=== PATIENT | female | born 1950 | race Caucasian/White ===

== ENCOUNTER → 2016-04-07 | Outpatient (REF) | payer MEDICARE ==
[~2016-04-07] MED LIST: /AMLO25TA PO; CHLO125TA PO; FENO48TA2 PO; LISI5TAB PO; NICO21DI26 EXT; OMEP20CA3 PO; PRAV40TA2 PO
[2016-04-07 12:11] LABS: FREE T4 0.81 NG/DL (0.76-1.46)
== END ==
LOC: M SFHCLERA 07:52
PROVIDERS: ATTEND Family Medicine
DX: E03.9 Hypothyroidism, unspecified (principal)

== ENCOUNTER → 2016-05-31 | Outpatient (REF) | payer MEDICARE ==
[2016-05-31 12:43] LABS: FREE T4 0.91 NG/DL (0.76-1.46)
== END ==
LOC: M SFHCLERA 08:20
PROVIDERS: ATTEND Family Medicine
DX: E03.9 Hypothyroidism, unspecified (principal)

== ENCOUNTER 2017-01-11 08:03 | Emergency (ER) | payer MEDICARE ==
[~2017-01-11] VITALS: Ht 157.5 cm; Wt 59.1 kg
[2017-01-11] MEDS ORDERED: AMLO10TA2 PO (08:14)
[2017-01-11] MEDS ORDERED: METO1TAB87 PO (08:14)
[2017-01-11] MEDS ORDERED: LEVO25TA5 PO (08:14)
[2017-01-11] MEDS ORDERED: PRAV40TA2 PO (08:14)
[2017-01-11] MEDS ORDERED: PRED20TA PO (09:31)
[2017-01-11] MEDS ORDERED: LEVA1TAB2 PO (09:31)
[2017-01-11 09:41] VITALS: BP 132/63
== END 2017-01-11 09:44 | disposition home or self-care (01) ==
LOC: M ED 08:03
DX: J44.1 Chronic obstructive pulmonary disease with (acute) exacerbation (principal); J01.00 Acute maxillary sinusitis, unspecified; I10 Essential (primary) hypertension; E03.9 Hypothyroidism, unspecified; F17.200 Nicotine dependence, unspecified, uncomplicated; Z85.828 Personal history of other malignant neoplasm of skin; Z79.899 Other long term (current) drug therapy; Z88.1 Allergy status to other antibiotic agents; Z88.5 Allergy status to narcotic agent; Z88.8 Allergy status to other drugs, medicaments and biological substances

== ENCOUNTER 2017-01-17 11:19 | Inpatient (IN) | payer MEDICARE ==
[2017-01-17] VITALS: BP 112/59
[~2017-01-17] VITALS: Ht 160 cm; Wt 64.2 kg
[~2017-01-17 11:19] MED LIST changes: -CALC600T57 PO; -CHLO25TA PO; -LEVO500T3 PO; -LEVO50TA5 PO; -TYLE325C PO
[2017-01-17] MEDS ORDERED: NS 1,000 ML IV SCH (12:26)
[2017-01-17] MEDS ORDERED: IPRATROPIUM 0.5MG/ALBUTEROL 2.5MG INH SOL UD 3ML (DUONEB)(J7620) NEB PRN (12:30)
[2017-01-17] MEDS ORDERED: ASPIRIN 81 MG CHEW TABLET PO ONE (12:30)
[2017-01-17 12:37] LABS: VENOUS BASE EXCESS -0.8 (-2.0-2.0); VENOUS O2 SATURATION 88.8 % (60.0-80.0); VENOUS PARTIAL PRESSURE CO2 45.7 mmHg (38.0-50.0); VENOUS PARTIAL PRESSURE O2 55.4 mmHg (30.0-50.0); VENOUS STANDARD HCO3 23.6 MEQ/L; VENOUS TOTAL CO2 26.5 MEQ/L (24.0-28.0)
[2017-01-17 12:40] LABS: BASO % 0.2 % (0.0-1.0); EOS % 0.1 % (0.0-3.0); IMMATURE GRANULOCYTE % 1.5 % (0-0); LYMPH # 0.5 10^3/uL (1.5-4.5); LYMPH % 2.5 % (24.0-44.0); MEAN CORPUSCULAR HEMOGLOBIN 32.2 pg (27.0-33.0); MEAN CORPUSCULAR VOLUME 92.1 fl (80.0-96.0); MONO # 0.6 10^3/uL (0.0-0.8); NEUTROPHILS # 17.7 10^3/uL (1.8-7.7); NEUTROPHILS % 92.7 % (36.0-66.0); PLATELET COUNT, AUTOMATED 484 10^3/uL (150-450); RED CELL DISTRIBUTION WIDTH 12.7 % (11.5-14.5); WHITE BLOOD COUNT 19.1 10^3/uL (4.0-10.0)
[2017-01-17 12:48] LABS: ANION GAP 13 MEQ/L (8-16); BLOOD UREA NITROGEN 9 MG/DL (7-18); CALCIUM LEVEL 9.1 MG/DL (8.8-10.2); CARBON DIOXIDE LEVEL 26 MEQ/L (21-32); CHLORIDE LEVEL 85 MEQ/L (98-107); CREATININE FOR GFR 0.76 MG/DL (0.55-1.02); GLOMERULAR FILTRATION RATE > 60.0 (>45); GLUCOSE, FASTING 126 MG/DL (80-110); POTASSIUM SERUM 3.3 MEQ/L (3.5-5.1); SODIUM LEVEL 124 MEQ/L (136-145)
[2017-01-17 12:51] LABS: INR 0.85
[2017-01-17] MEDS ORDERED: LEVO500T3 PO (14:10)
[2017-01-17] MEDS ORDERED: LEVO50TA5 PO (14:10)
[2017-01-17] MEDS ORDERED: CHLO25TA PO (14:10)
[2017-01-17] MEDS ORDERED: PRED20TA PO (14:15)
[2017-01-17] MEDS ORDERED: TYLE325C PO (14:17)
[2017-01-17] MEDS ORDERED: CALC600T57 PO (14:18)
[2017-01-17 15:10] VITALS: BP 147/68
[2017-01-17] MEDS: NICOTINE 14 MG/24 HR TRANSDERMAL TD SCH (15:57)
--- NOTE | 2017-01-17 17:02 | HPEPDOC ---
General Date of Admission Jan 17, 2017 at 13:35 Primary Care Physician: RANDA ONTIVEROS MD Attending Physician: Camilo Hutton MD Chief Complaint The patient is a 66-year-old female admitted with a reason for visit of Cap, Copd. Source: Patient, Family Exam Limitations: No limitations Timing/Duration: Week(s) (2), Constant Severity: Moderate Associated Symptoms: Fever, Chills History of Present Illness Patient presents with a 2 week history of dry non productive cough, along with sinus pain. She admits to a subjective fever and chills during the beginning of the disease process. Patient presented to [facility] ED last week and was diagnosed with pneumonia. Patient was prescribed Levaquin with prednisone and albuterol nebulizer. Patient went home and adhered to her treatment regimen however over the course of the week she noticed that her symptoms were not improving, or worsening. They stayed the same. This morning patient reported to her PCP Dr. [place]. In the office, patient was in distress her O2 sat was 88 and x -ray showed left lower lobe pneumonia. Patient was instructed to present to this ED. On presentation patient admitted to shortness of breath, increased cough, however denied chest pain palpitation and rapid heart rate. Patient admits to having 1 prior episode of pneumonia in the past where she was treated as an outpatient with antibiotics. Patient is a 1 pack-a-day smoker for the last 30 years. She is also having drinker. Patient did not get the flu shot this year, however she has received both the Prevnar and Pneumovax vaccines. She was admitted for community-acquired pneumonia resistance to one-week treatment is Levaquin. Home Medications Scheduled (Calcium + D3 600-200 mg-Unit) 1 Tab Tab, 1 TAB PO QHS, (Reported) Amlodipine Besylate (Amlodipine Besylate) 10 Mg Tab, 10 MG PO QHS, (Reported) Chlorthalidone (Chlorthalidone) 25 Mg Tab, 25 MG PO QHS, (Reported) Levofloxacin Hemihydrate (Levofloxacin) 500 Mg Tab, 500 MG PO DAILY, (Reported) FILLED 01/11/2017 Levothyroxine Sodium (Synthroid) 50 Mcg Tab, 50 MCG PO QHS, (Reported) Metoprolol Tartrate (Metoprolol Tartrate) 25 Mg Tab, 50 MG PO QHS, (Reported) Pravastatin Sod (Pravastatin Sodium) 40 Mg Tab, 40 MG PO QHS, (Reported) Prednisone (Prednisone) 20 Mg Tab, 20 MG PO ASDIRECTED, (Reported) 60MG DAYS 1-3, 40MG DAYS 4-7, 20MG DAYS 8-10 Scheduled PRN (Tylenol) 325 Mg Cap, 650 MG PO Q4H PRN for PAIN, (Reported) Allergies Coded Allergies: Lisinopril (Verified Allergy, Unknown, 06/28/14) Prochlorperazine (Verified Allergy, Unknown, 06/28/14) Cephalexin (Verified Adverse Reaction, Mild, N/V, 01/17/17) Codeine (Verified Adverse Reaction, Mild, N/V, 06/28/14) Meperidine (Verified Adverse Reaction, Mild, N/V, 06/28/14) Past Medical History Medical History Hypertension Smoking, and pack-a-day for 30 years History of hyperkalemia Hyperlipidemia Hiatal hernia with history of gastritis Osteopenia COPD Heavy alcohol use patient reports 3-5 glasses of wine day 1 prior history of community acquired pneumonia Surgical History Hysterectomy 30 years ago, tonsillectomy when she was 17, urethroplasty Family History Father is at the age of 76, patient reports father had an [place], hypertension, diabetes and kidney disease Mother at the age of 76 patient report mother had liver disease and hypertension Siblings hypertension, brother suddenly from [place] Paternal grandmother had colon cancer Social History * Smoker: current smoker (1 pack-a-day for last 30 years) Alcohol: heavy (4-5 glasses of wine a day) Drugs: denies Recent Travel/Sick Contacts: Denies: Recent travel, Recent sick contacts Pets in the home: Cat(s) (1) Psychosocial History: Anxiety (states she is anxious from not having a drink) Lives at home by herself, her daughter lives next door Review of Symptoms Constitutional: Reports: Chills, Fever, Denies: Night Sweats Eyes: Denies: Pain, Vision change ENT: Reports: Sinus Congestion, Sore Throat, Denies: Head Aches, Ear Pain, Dysphagia Skin: Denies: Rash, Lesions, Breakdown Pulmonary: Reports: Dyspnea, Cough, Denies: Pleuritic Chest Pain Cardiovascular: Denies: Chest Pain, Palpitations, Orthopnea, Paroxysmal Noc. Dyspnea, Lt Headedness Gastrointestinal: Denies: Nausea, Vomiting, Abdominal Pain, Diarrhea Genitourinary: Denies: Dysuria, Frequency, Incontinence, Retention Hematologic: Denies: Bruising, Bleeding Excessively Musculoskeletal: Denies: Neck Pain, Back Pain, Joint Pain, Muscle Pain, Spasms Neurological: Denies: Weakness, Numbness, Change in speech, Confusion Psych: Reports: Mood Normal, Anxiety, Denies: Depression, Memory Issues Physical Examination General Exam: Positive: Alert, Cooperative, No Acute Distress Eye Exam: Positive: Conjunctiva & lids normal ENT Exam: Positive: Atraumatic, Mucous membr. moist/pink, Nares Patent Neck Exam: Positive: Supple, +2 carotid pulse wo bruit, Negative: JVD, thyromegaly Chest Exam: Positive: Clear to auscultation (diminished breath sounds in bilateral lower lobes, dullness to percuss and left lower lobe, she does not appear to be using accessory muscles to breathe), Other (She is on 3 liters of nasal cannula) Heart Exam: Positive: Rate Normal, Regular Rhythm, Normal S1, Normal S2, Negative: Gallops, Murmurs, Rubs Abdomen Exam: Positive: Normal bowel sounds, Soft, Tenderness Extremity Exam: Negative: Clubbing, Cyanosis Psych Exam: Positive: Mental status NL, Anxiety Vital Signs Vital Signs Date Time Temp Pulse Resp B/P (MAP) Pulse Ox O2 Delivery O2 Flow Rate FiO2 01/17/17 15:41 Nasal Cannula 3.0 01/17/17 15:10 97.3 70 16 147/68 (94) 95 Laboratory Data Labs 24H Laboratory Tests 2 01/17/17 11:59: Immature Granulocyte % (Auto) 1.5H, White Blood Count 19.1H, Red Blood Count 4.16, Hemoglobin 13.4, Hematocrit 38.3, Mean Corpuscular Volume 92.1, Mean Corpuscular Hemoglobin 32.2, Mean Corpuscular Hemoglobin Concent 35.0, Red Cell Distribution Width 12.7, Platelet Count 484H, Neutrophils (%) (Auto) 92.7H, Lymphocytes (%) (Auto) 2.5L, Monocytes (%) (Auto) 3.0, Eosinophils (%) (Auto) 0.1, Basophils (%) (Auto) 0.2, Neutrophils # (Auto) 17.7H, Lymphocytes # (Auto) 0.5L, Monocytes # (Auto) 0.6, Eosinophils # (Auto) 0.0, Basophils # (Auto) 0.0, Immature Granulocyte # (Auto) 0.3H, Nucleated Red Blood Cells % (auto) 0.0, Prothrombin Time 11.6L, Prothromb Time International Ratio 0.85, Blood Gas Bicarbonate Standard 23.6, Venous Blood pH 7.357, Venous Blood Partial Pressure CO2 45.7, Venous Blood Partial Pressure O2 55.4H, Venous Blood Total Carbon Dioxide 26.5, Venous Blood HCO3 25.1, Venous Blood Oxygen Saturation 88.8H, Venous Blood Base Excess -0.8, Anion Gap 13, Glomerular Filtration Rate > 60.0, Lactic Acid Level 2.9*H, Blood Urea Nitrogen 9, Creatinine 0.76, Sodium Level 124L, Potassium Level 3.3L, Chloride Level 85L, Carbon Dioxide Level 26, Calcium Level 9.1, Total Creatine Kinase 46, Creatine Kinase MB 2.2, Creatine Kinase MB Relative Index 4.78H, Troponin I < 0.02 CBC/BMP Laboratory Tests 01/17/17 11:59 Red Blood Count 4.16, Mean Corpuscular Volume 92.1, Mean Corpuscular Hemoglobin 32.2, Mean Corpuscular Hemoglobin Concent 35.0, Red Cell Distribution Width 12.7 , Neutrophils (%) (Auto) 92.7 H, Lymphocytes (%) (Auto) 2.5 L, Monocytes (%) ( Auto) 3.0, Eosinophils (%) (Auto) 0.1, Basophils (%) (Auto) 0.2, Neutrophils # ( Auto) 17.7 H, Lymphocytes # (Auto) 0.5 L, Monocytes # (Auto) 0.6, Eosinophils # (Auto) 0.0, Basophils # (Auto) 0.0, Calcium Level 9.1, Total Creatine Kinase 46 Microbiology Microbiology 01/17/17 Blood Culture, Received Pending 01/17/17 Blood Culture, Received Pending Assessment/Plan This is a 66 y.o female being admitted for community acquired pneumonia resistant to levaquin 1. Community-acquired pneumonia: -X-ray showed left lower lobe pneumonia by my interpretation. Still waiting on the official read from radiologist. Patient will be started on 2 g Rocephin IV along with 100 of IV doxycycline twice a day. We'll monitor patient for white count and clinical signs of improvement. 2. COPD Exacerbation -Patient has a history of COPD however ,there is no documented spirometry in her file. Unsure if her current condition is attributed to COPD exacerbation. However given the likely possibility that her symptoms might relate to an exacerbation of COPD and prior wheezing on physical exam, she will be placed on Solu-Medrol 40 mg IV for 3 days 3. Alcohol withdrawal -Patient has a history of heavy alcohol use. She drinks 4-5 glasses of wine a day starting around 12 PM each day. To prevent withdrawal while in the hospital patient has been given thiamine as well as Serax 30 mg every 6 when necessary for agitation and signs of alcohol withdrawal 4. Tobacco abuse -She is a 30 year history of 1 pack-a-day smoking. Nicotine patch has been ordered for patient. 5. Basal cell carcinoma -Patient recently underwent a Mohs procedure to remove a basal cell carcinoma from her right upper eyebrow. An order has been placed for triple antibiotics as needed when necessary for the healing wound 6. Hypertension -We'll be switching patient's home medication of metoprolol tartrate to metoprolol succinate 25 mg once a day. I would also be decreasing patient's amlodipine from 10 mg a day to 5 mg a day 7. Hypokalemia -Patient has been given IV fluids with kcl 20 MEQ Plan / VTE VTE Prophylaxis Ordered?: Yes Plan Diet: Continue Current Activity: Continue Current GME ATTESTATION GME ATTESTATION My faculty preceptor for this patient encounter was physically present during the encounter and was fully available. All aspects of the patient interview, examination, medical decision making process, and medical care plan development were reviewed and approved by the faculty preceptor. The faculty preceptor is aware and concurs with the plan as stated in the body of this note and will attest to such by his/her cosignature. ELMO GARCIA DO Jan 17, 2017 16:19
[2017-01-17] MEDS: DOXYCYCLINE HYCLATE 100 MG in D5W MINI-BAG PLUS 100 ML IV SCH (17:10)
[2017-01-17] MEDS: THIAMINE 100 MG TAB PO SCH (17:10)
[2017-01-17] MEDS: ENOXAPARIN 40 MG/0.4 ML SYRINGE (J1650) SC SCH (17:11)
[2017-01-17] MEDS: methylPREDNISolone INJ 40 MG/1 ML VIAL (J2920) IV SCH (17:11)
[2017-01-17] MEDS: OXAZEPAM 15 MG CAP PO PRN (17:24)
--- NOTE | 2017-01-17 17:35 | REP ---
Chest x-ray: Two views. History: Pneumonia. Comparison chest x-ray January 17, 2017 from 10:03 a.m. also reviewed is a prior chest x-ray from April 11, 2012. Findings: There is blunting of the left lateral and left posterior pleural angles indicating a small amount of left pleural fluid. Increased parenchymal density is seen in the left base above this. There is also an ill-defined nodular opacity in the left perihilar region which measures approximately 2 cm in diameter. Right lung appears clear. There are degenerative changes in the thoracic spine. Heart is not enlarged. Impression: Small left pleural effusion. Probable infiltrate left lower lobe. 2 cm nodular opacity left perihilar region. Consider chest CT study. Signed by Eliud Bond MD 01/17/2017 07:52 P
[2017-01-17] MEDS ORDERED: ALBUTEROL SULFATE 2.5 MG/0.5 ML INH NEB SOLN NEB PRN (17:45)
--- NOTE | 2017-01-17 17:50 | REP ---
CT study of the chest without contrast: History: Pneumonia. No comparison chest CT. Comparison chest x-ray is from today. CT findings: There are patchy areas of predominately peripheral consolidation bilaterally. These affect the lingula, left lower lobe, and right lower lobe. There is a small left pleural effusion. No adrenal lesion is seen. No pulmonary mass lesion is observed. One of the peripheral infiltrates in the lingula is felt to be responsible for the left inferior perihilar nodule density seen on chest x-ray. No pericardial or right pleural effusion is seen. No hilar or mediastinal mass or adenopathy is seen. There are several normal-appearing mediastinal lymph nodes. No axillary adenopathy is seen. Mild degenerative changes are seen in the thoracic spine. Vascular calcification is noted. Old healed rib fractures are noted on the right. No endobronchial disease is appreciated. Impression: Patchy areas of consolidation bilaterally in the lower lobes and in the lingular segment left upper lobe. Small left pleural effusion. Findings compatible with pneumonia. Signed by Eliud Bond MD 01/17/2017 07:53 P
[2017-01-17] MEDS: KCL 20MEQ in NS 1000ML 1,000 ML IV SCH (18:48)
[2017-01-17] MEDS: CEFTRIAXONE SOD 2 GM in APPROPRIATE DILUENT 1 EA IV SCH (18:48)
--- NOTE | 2017-01-17 19:37 | ECGEPIP ---
Stationary ECG Study [facility] - ED Test Date: 2017-01-17 Pat Name: TRE BOYER Department: Room: - Gender: F Director Of Marketing: BIANCA : 1950 Requested By: NIEVES CHAVEZ Order Number: [id number] Reading MD: Agatha Gutierrez Measurements Intervals [place] Rate: 75 P: 79 NH: 150 QRS: 28 QRSD: 90 T: 33 QT: 402 QTc: 450 Interpretive Statements SINUS RHYTHM DELAYED R PROGRESSION INCREASED RATE 04/27/12 Electronically Signed On 01-17-2017 19:36:57 EST by Agatha Gutierrez
[2017-01-17] MEDS: ALBUTEROL SULFATE 2.5 MG/0.5 ML INH NEB SOLN NEB SCH (19:49)
[2017-01-17] MEDS: LEVOTHYROXINE 50MCG TABLET (0.05MG) PO SCH (20:48)
[2017-01-17] MEDS: PRAVASTATIN 20 MG TAB PO SCH (20:48)
[2017-01-17 22:00] VITALS: BP 112/59
[2017-01-18] VITALS (7 sets, daily range): BP systolic 103–146; BP diastolic 58–67
[2017-01-18] MEDS: OXAZEPAM 15 MG CAP PO PRN ×3 (03:52→20:35)
[2017-01-18] MEDS: DOXYCYCLINE HYCLATE 100 MG in D5W MINI-BAG PLUS 100 ML IV SCH ×2 (03:53→16:09)
[2017-01-18] MEDS: KCL 20MEQ in NS 1000ML 1,000 ML IV SCH (03:54)
[2017-01-18 06:49] LABS: BASO % 0.2 % (0.0-1.0); IMMATURE GRANULOCYTE % 1.2 % (0-0); LYMPH # 0.6 10^3/uL (1.5-4.5); LYMPH % 3.4 % (24.0-44.0); MEAN CORPUSCULAR HEMOGLOBIN 32.4 pg (27.0-33.0); MEAN CORPUSCULAR HGB CONC 34.9 g/dl (32.0-36.5); MEAN CORPUSCULAR VOLUME 92.8 fl (80.0-96.0); MONO # 1.2 10^3/uL (0.0-0.8); MONO % 6.8 % (0.0-5.0); NEUTROPHILS # 16.1 10^3/uL (1.8-7.7); NEUTROPHILS % 88.4 % (36.0-66.0); PLATELET COUNT, AUTOMATED 425 10^3/uL (150-450); RED CELL DISTRIBUTION WIDTH 12.8 % (11.5-14.5); WHITE BLOOD COUNT 18.2 10^3/uL (4.0-10.0)
[2017-01-18 07:10] LABS: ANION GAP 6 MEQ/L (8-16); BLOOD UREA NITROGEN 9 MG/DL (7-18); CALCIUM LEVEL 8.4 MG/DL (8.8-10.2); CARBON DIOXIDE LEVEL 28 MEQ/L (21-32); CHLORIDE LEVEL 99 MEQ/L (98-107); CREATININE FOR GFR 0.66 MG/DL (0.55-1.02); GLOMERULAR FILTRATION RATE > 60.0 (>45); GLUCOSE, FASTING 140 MG/DL (80-110); POTASSIUM SERUM 3.6 MEQ/L (3.5-5.1); SODIUM LEVEL 133 MEQ/L (136-145)
[2017-01-18] MEDS: ALBUTEROL SULFATE 2.5 MG/0.5 ML INH NEB SOLN NEB SCH ×4 (07:26→20:02)
[2017-01-18] MEDS: NICOTINE 14 MG/24 HR TRANSDERMAL TD SCH (08:22)
[2017-01-18] MEDS: FOLIC ACID 1 MG TAB PO SCH (08:22)
[2017-01-18] MEDS: MULTIVITAMINS/MINERALS THERAP 1 TAB PO SCH (08:22)
[2017-01-18] MEDS: THIAMINE 100 MG TAB PO SCH (08:23)
[2017-01-18] MEDS: amLODIPine 5 MG TAB PO SCH (08:23)
[2017-01-18] MEDS: METOPROLOL SUCC *XL* 25MG TAB (TopROL *XL*) PO SCH (08:23)
[2017-01-18] MEDS: ENOXAPARIN 40 MG/0.4 ML SYRINGE (J1650) SC SCH (08:24)
--- NOTE | 2017-01-18 10:14 | IPNPDOC ---
Text Note Date of Service The patient was seen on 01/18/17. NOTE Subjective: Patient seen and examined at bedside. States her breathing has significantly improved. Does admit to cough, productive of clear to yellow sputum. Objective: General: NAD, sitting comfortably in chair HEENT: NC/AT, EOMI Lungs: B/L wheezes, diminished movement Abd: soft, NT, +BS Ext: no edema A/P: This is a 66 y.o female being admitted for community acquired pneumonia resistant to levaquin 1. Community-acquired pneumonia: -X-ray showed left lower lobe pneumonia -Continue 2 g Rocephin IV along with 100 of IV doxycycline twice a day 2. COPD Exacerbation - Solu-Medrol 40 mg IV for 3 days - o/p follow up - states she does not use home O2 3. Alcohol withdrawal - continue serax - folic acid, thiamine, MVI 4. Tobacco abuse - she states she has been smoking about a pack a day since she was a teenager - continue with NRT 5. Basal cell carcinoma -Patient recently underwent a Mohs procedure to remove a basal cell carcinoma from her right upper eyebrow. An order has been placed for triple antibiotics as needed when necessary for the healing wound 6. Hypertension -Metoprolol succinat/amlodipine 7. hypokalemia - resolved 8. hyponatremia - improved 9. DVT prophylaxis - Lovenox VS,Fishbone, I+O VS, Fishbone, I+O Laboratory Tests 01/17/17 11:59 Red Blood Count 4.16, Mean Corpuscular Volume 92.1, Mean Corpuscular Hemoglobin 32.2, Mean Corpuscular Hemoglobin Concent 35.0, Red Cell Distribution Width 12.7 , Neutrophils (%) (Auto) 92.7 H, Lymphocytes (%) (Auto) 2.5 L, Monocytes (%) ( Auto) 3.0, Eosinophils (%) (Auto) 0.1, Basophils (%) (Auto) 0.2, Neutrophils # ( Auto) 17.7 H, Lymphocytes # (Auto) 0.5 L, Monocytes # (Auto) 0.6, Eosinophils # (Auto) 0.0, Basophils # (Auto) 0.0, Calcium Level 9.1, Total Creatine Kinase 46 01/18/17 06:37 Red Blood Count 3.46 L, Mean Corpuscular Volume 92.8, Mean Corpuscular Hemoglobin 32.4, Mean Corpuscular Hemoglobin Concent 34.9, Red Cell Distribution Width 12.8, Neutrophils (%) (Auto) 88.4 H, Lymphocytes (%) (Auto) 3.4 L, Monocytes (%) (Auto) 6.8 H, Eosinophils (%) (Auto) 0.0, Basophils (%) ( Auto) 0.2, Neutrophils # (Auto) 16.1 H, Lymphocytes # (Auto) 0.6 L, Monocytes # (Auto) 1.2 H, Eosinophils # (Auto) 0.0, Basophils # (Auto) 0.0, Calcium Level 8.4 L Vital Signs Date Time Temp Pulse Resp B/P (MAP) Pulse Ox O2 Delivery O2 Flow Rate FiO2 01/18/17 08:23 63 103/58 01/18/17 06:00 97.3 20 98 Nasal Cannula 3.0 I&O- Last 24 Hours up to 6 AM 01/19/17 06:00 Intake Total 700 ml Balance 700 ml ARTURO PEOPLES MD Jan 18, 2017 10:14
[2017-01-18] MEDS: methylPREDNISolone INJ 40 MG/1 ML VIAL (J2920) IV SCH (16:10)
[2017-01-18] MEDS: CEFTRIAXONE SOD 2 GM in APPROPRIATE DILUENT 1 EA IV SCH (17:26)
[2017-01-18] MEDS: LEVOTHYROXINE 50MCG TABLET (0.05MG) PO SCH (20:35)
[2017-01-18] MEDS: PRAVASTATIN 20 MG TAB PO SCH (20:35)
[2017-01-19] VITALS: BP 128/60
[2017-01-19] MEDS: DOXYCYCLINE HYCLATE 100 MG in D5W MINI-BAG PLUS 100 ML IV SCH ×2 (04:17→15:56)
[2017-01-19] MEDS: OXAZEPAM 15 MG CAP PO PRN ×3 (04:18→21:10)
[2017-01-19] MEDS: NEOSPORIN TOP OINT 15GM TOP PRN (04:27)
[2017-01-19 05:55] VITALS: BP 130/62
[2017-01-19 06:00] VITALS: BP 123/59
[2017-01-19 06:07] LABS: BASO % 0.2 % (0.0-1.0); EOS % 0.2 % (0.0-3.0); IMMATURE GRANULOCYTE % 1.1 % (0-0); LYMPH # 1.4 10^3/uL (1.5-4.5); LYMPH % 9.5 % (24.0-44.0); MEAN CORPUSCULAR HEMOGLOBIN 31.9 pg (27.0-33.0); MEAN CORPUSCULAR HGB CONC 33.4 g/dl (32.0-36.5); MEAN CORPUSCULAR VOLUME 95.5 fl (80.0-96.0); MONO # 1.1 10^3/uL (0.0-0.8); MONO % 7.3 % (0.0-5.0); NEUTROPHILS # 12.4 10^3/uL (1.8-7.7); NEUTROPHILS % 81.7 % (36.0-66.0); PLATELET COUNT, AUTOMATED 467 10^3/uL (150-450); RED CELL DISTRIBUTION WIDTH 13.3 % (11.5-14.5); WHITE BLOOD COUNT 15.2 10^3/uL (4.0-10.0)
[2017-01-19 06:26] LABS: ANION GAP 7 MEQ/L (8-16); BLOOD UREA NITROGEN 10 MG/DL (7-18); CALCIUM LEVEL 8.7 MG/DL (8.8-10.2); CARBON DIOXIDE LEVEL 29 MEQ/L (21-32); CHLORIDE LEVEL 101 MEQ/L (98-107); GLOMERULAR FILTRATION RATE > 60.0 (>45); GLUCOSE, FASTING 85 MG/DL (80-110); POTASSIUM SERUM 3.9 MEQ/L (3.5-5.1); SODIUM LEVEL 137 MEQ/L (136-145)
[2017-01-19] MEDS: ALBUTEROL SULFATE 2.5 MG/0.5 ML INH NEB SOLN NEB SCH ×4 (08:03→20:56)
[2017-01-19] MEDS: ENOXAPARIN 40 MG/0.4 ML SYRINGE (J1650) SC SCH (08:36)
[2017-01-19] MEDS: NICOTINE 14 MG/24 HR TRANSDERMAL TD SCH (08:36)
[2017-01-19] MEDS: amLODIPine 5 MG TAB PO SCH (08:36)
[2017-01-19] MEDS: FOLIC ACID 1 MG TAB PO SCH (08:37)
[2017-01-19] MEDS: MULTIVITAMINS/MINERALS THERAP 1 TAB PO SCH (08:37)
[2017-01-19] MEDS: METOPROLOL SUCC *XL* 25MG TAB (TopROL *XL*) PO SCH (08:37)
[2017-01-19] MEDS: THIAMINE 100 MG TAB PO SCH (08:37)
[2017-01-19] MEDS ORDERED: NYSTATIN 100,000 UNITS/GM TOPICAL PWD 15 GM TOP PRN (10:30)
[2017-01-19] MEDS ORDERED: guaiFENesin SYRUP 200 MG/10 ML UDC PO PRN (11:00)
[2017-01-19 13:13] VITALS: BP 150/67
[2017-01-19] MEDS: ACETAMINOPHEN TAB 650MG DOSE (2X325MG) PO PRN (13:16)
[2017-01-19 14:00] VITALS: BP 126/44
--- NOTE | 2017-01-19 14:12 | IPNPDOC ---
Text Note Date of Service The patient was seen on 01/19/17. NOTE Subjective: Patient seen and examined at bedside. Continues to feel better. No new medical complaints today. Objective: General: NAD, sitting comfortably in chair HEENT: NC/AT, EOMI Lungs: B/L wheezes, good air movement Abd: soft, NT, +BS Ext: no edema A/P: This is a 66 y.o female being admitted for community acquired pneumonia resistant to levaquin complicated with alcohol abuse. 1. Community-acquired pneumonia: -X-ray showed left lower lobe pneumonia -Continue 2 g Rocephin IV along with 100 of IV doxycycline twice a day -cultures pending; mrsa screen negative 2. COPD Exacerbation - Solu-Medrol 40 mg IV - will taper to PO prednisone in 24-48 hours - o/p follow up - states she does not use home O2 3. Alcohol withdrawal - continue serax - folic acid, thiamine, MVI 4. Tobacco abuse - she states she has been smoking about a pack a day since she was a teenager - continue with NRT 5. Basal cell carcinoma -Patient recently underwent a Mohs procedure to remove a basal cell carcinoma from her right upper eyebrow. An order has been placed for triple antibiotics as needed when necessary for the healing wound 6. Hypertension -Metoprolol succinat/amlodipine 7. hypokalemia - resolved 8. hyponatremia - improved 9. DVT prophylaxis - Lovenox VS,Fishbone, I+O VS, Fishbone, I+O Laboratory Tests 01/19/17 05:57 Red Blood Count 3.79 L, Mean Corpuscular Volume 95.5, Mean Corpuscular Hemoglobin 31.9, Mean Corpuscular Hemoglobin Concent 33.4, Red Cell Distribution Width 13.3, Neutrophils (%) (Auto) 81.7 H, Lymphocytes (%) (Auto) 9.5 L, Monocytes (%) (Auto) 7.3 H, Eosinophils (%) (Auto) 0.2, Basophils (%) ( Auto) 0.2, Neutrophils # (Auto) 12.4 H, Lymphocytes # (Auto) 1.4 L, Monocytes # (Auto) 1.1 H, Eosinophils # (Auto) 0.0, Basophils # (Auto) 0.0, Calcium Level 8.7 L Vital Signs Date Time Temp Pulse Resp B/P (MAP) Pulse Ox O2 Delivery O2 Flow Rate FiO2 01/19/17 13:13 88 150/67 01/19/17 09:45 Nasal Cannula 2.0 01/19/17 06:00 96.8 21 97 I&O- Last 24 Hours up to 6 AM 01/20/17 06:00 Intake Total 550 ml Output Total 150 ml Balance 400 ml ARTURO PEOPLES MD Jan 19, 2017 14:12
[2017-01-19] MEDS: predniSONE 20 MG TAB PO SCH (15:04)
[2017-01-19] MEDS: CEFTRIAXONE SOD 2 GM in APPROPRIATE DILUENT 1 EA IV SCH (16:41)
[2017-01-19] MEDS ORDERED: LORazepam 2 MG/ML VIAL (J2060) IV PRN (17:15)
[2017-01-19] MEDS: PRAVASTATIN 20 MG TAB PO SCH (21:10)
[2017-01-19] MEDS: LEVOTHYROXINE 50MCG TABLET (0.05MG) PO SCH (21:10)
[2017-01-19 22:00] VITALS: BP 152/68
[2017-01-20] MEDS: DOXYCYCLINE HYCLATE 100 MG in D5W MINI-BAG PLUS 100 ML IV SCH ×2 (03:29→16:11)
[2017-01-20 06:00] VITALS: BP 149/71
[2017-01-20 06:47] LABS: BASO % 0.1 % (0.0-1.0); IMMATURE GRANULOCYTE % 1.1 % (0-0); LYMPH # 0.5 10^3/uL (1.5-4.5); LYMPH % 2.5 % (24.0-44.0); MEAN CORPUSCULAR HEMOGLOBIN 32.1 pg (27.0-33.0); MEAN CORPUSCULAR HGB CONC 33.8 g/dl (32.0-36.5); MONO # 0.9 10^3/uL (0.0-0.8); MONO % 4.4 % (0.0-5.0); NEUTROPHILS # 19.6 10^3/uL (1.8-7.7); NEUTROPHILS % 91.9 % (36.0-66.0); PLATELET COUNT, AUTOMATED 428 10^3/uL (150-450); RED CELL DISTRIBUTION WIDTH 13.2 % (11.5-14.5); WHITE BLOOD COUNT 21.3 10^3/uL (4.0-10.0)
[2017-01-20 07:08] LABS: ANION GAP 9 MEQ/L (8-16); BLOOD UREA NITROGEN 12 MG/DL (7-18); CALCIUM LEVEL 8.5 MG/DL (8.8-10.2); CARBON DIOXIDE LEVEL 26 MEQ/L (21-32); CHLORIDE LEVEL 102 MEQ/L (98-107); CREATININE FOR GFR 0.62 MG/DL (0.55-1.02); GLOMERULAR FILTRATION RATE > 60.0 (>45); GLUCOSE, FASTING 223 MG/DL (80-110); POTASSIUM SERUM 3.5 MEQ/L (3.5-5.1); SODIUM LEVEL 137 MEQ/L (136-145)
[2017-01-20] MEDS: ALBUTEROL SULFATE 2.5 MG/0.5 ML INH NEB SOLN NEB SCH ×4 (07:54→19:56)
[2017-01-20] MEDS: METOPROLOL SUCC *XL* 25MG TAB (TopROL *XL*) PO SCH (09:30)
[2017-01-20] MEDS: OXAZEPAM 15 MG CAP PO PRN ×2 (09:30→20:41)
[2017-01-20] MEDS: predniSONE 20 MG TAB PO SCH (09:30)
[2017-01-20] MEDS: amLODIPine 5 MG TAB PO SCH (09:31)
[2017-01-20] MEDS: THIAMINE 100 MG TAB PO SCH (09:31)
[2017-01-20] MEDS: MULTIVITAMINS/MINERALS THERAP 1 TAB PO SCH (09:31)
[2017-01-20] MEDS: FOLIC ACID 1 MG TAB PO SCH (09:31)
[2017-01-20] MEDS: ENOXAPARIN 40 MG/0.4 ML SYRINGE (J1650) SC SCH (09:32)
[2017-01-20] MEDS: NICOTINE 14 MG/24 HR TRANSDERMAL TD SCH (09:32)
[2017-01-20 11:00] VITALS: BP 149/71
--- NOTE | 2017-01-20 13:14 | IPNPDOC ---
Text Note Date of Service The patient was seen on 01/20/17. NOTE Subjective: Patient seen and examined at bedside. Continues to feel better. No new medical complaints today. Feels her breathing is improving. Still having symptoms of alcohol withdrawal. Objective: General: NAD, sitting comfortably in chair eating breakfast HEENT: NC/AT, EOMI Lungs: B/L wheezes, good air movement Abd: soft, NT, +BS Ext: no edema A/P: This is a 66 y.o female being admitted for community acquired pneumonia resistant to levaquin complicated with alcohol abuse. 1. Community-acquired pneumonia: -X-ray showed left lower lobe pneumonia -Continue 2 g Rocephin IV along with 100 of IV doxycycline twice a day -cultures pending; mrsa screen negative 2. COPD Exacerbation - tapered to prednisone 30 mg daily - o/p follow up - states she does not use home O2 3. Alcohol withdrawal - continue serax, iv ativan prn added due to increased signs/symptoms - folic acid, thiamine, MVI 4. Tobacco abuse - she states she has been smoking about a pack a day since she was a teenager - continue with NRT 5. Basal cell carcinoma -Patient recently underwent a Mohs procedure to remove a basal cell carcinoma from her right upper eyebrow. An order has been placed for triple antibiotics as needed when necessary for the healing wound 6. Hypertension -Metoprolol succinate/amlodipine 7. hypokalemia - resolved 8. hyponatremia - improved 9. DVT prophylaxis - Lovenox VS,Fishbone, I+O VS, Fishbone, I+O Laboratory Tests 01/20/17 06:07 Red Blood Count 3.61 L, Mean Corpuscular Volume 95.0, Mean Corpuscular Hemoglobin 32.1, Mean Corpuscular Hemoglobin Concent 33.8, Red Cell Distribution Width 13.2, Neutrophils (%) (Auto) 91.9 H, Lymphocytes (%) (Auto) 2.5 L, Monocytes (%) (Auto) 4.4, Eosinophils (%) (Auto) 0.0, Basophils (%) (Auto ) 0.1, Neutrophils # (Auto) 19.6 H, Lymphocytes # (Auto) 0.5 L, Monocytes # ( Auto) 0.9 H, Eosinophils # (Auto) 0.0, Basophils # (Auto) 0.0, Calcium Level 8.5 L Vital Signs Date Time Temp Pulse Resp B/P (MAP) Pulse Ox O2 Delivery O2 Flow Rate FiO2 01/20/17 11:00 80 149/71 01/20/17 09:00 Nasal Cannula 2.0 01/20/17 06:00 98.1 20 96 ARTURO PEOPLES MD Jan 20, 2017 13:14
[2017-01-20 14:00] VITALS: BP 120/66
[2017-01-20] MEDS: CEFTRIAXONE SOD 2 GM in APPROPRIATE DILUENT 1 EA IV SCH (16:11)
[2017-01-20] MEDS: NEOSPORIN TOP OINT 15GM TOP PRN (16:46)
[2017-01-20 18:00] VITALS: BP 152/75
[2017-01-20] MEDS: PRAVASTATIN 20 MG TAB PO SCH (20:41)
[2017-01-20] MEDS: LEVOTHYROXINE 50MCG TABLET (0.05MG) PO SCH (20:41)
[2017-01-20 22:00] VITALS: BP 140/65
[2017-01-21] VITALS (7 sets, daily range): BP systolic 124–167; BP diastolic 48–78
[2017-01-21] MEDS: DOXYCYCLINE HYCLATE 100 MG in D5W MINI-BAG PLUS 100 ML IV SCH (04:15)
[2017-01-21 06:10] LABS: BASO % 0.2 % (0.0-1.0); EOS % 0.1 % (0.0-3.0); IMMATURE GRANULOCYTE % 1.1 % (0-0); LYMPH # 1.9 10^3/uL (1.5-4.5); LYMPH % 9.7 % (24.0-44.0); MEAN CORPUSCULAR HEMOGLOBIN 31.1 pg (27.0-33.0); MEAN CORPUSCULAR HGB CONC 33.1 g/dl (32.0-36.5); MEAN CORPUSCULAR VOLUME 93.8 fl (80.0-96.0); MONO # 1.5 10^3/uL (0.0-0.8); MONO % 7.5 % (0.0-5.0); NEUTROPHILS # 15.7 10^3/uL (1.8-7.7); NEUTROPHILS % 81.4 % (36.0-66.0); PLATELET COUNT, AUTOMATED 410 10^3/uL (150-450); RED CELL DISTRIBUTION WIDTH 13.4 % (11.5-14.5); WHITE BLOOD COUNT 19.2 10^3/uL (4.0-10.0)
[2017-01-21 06:36] LABS: ANION GAP 9 MEQ/L (8-16); BLOOD UREA NITROGEN 10 MG/DL (7-18); CALCIUM LEVEL 8.7 MG/DL (8.8-10.2); CARBON DIOXIDE LEVEL 27 MEQ/L (21-32); CHLORIDE LEVEL 102 MEQ/L (98-107); CREATININE FOR GFR 0.47 MG/DL (0.55-1.02); GLOMERULAR FILTRATION RATE > 60.0 (>45); GLUCOSE, FASTING 91 MG/DL (80-110); POTASSIUM SERUM 3.1 MEQ/L (3.5-5.1); SODIUM LEVEL 138 MEQ/L (136-145)
[2017-01-21] MEDS: ALBUTEROL SULFATE 2.5 MG/0.5 ML INH NEB SOLN NEB SCH ×4 (07:28→20:21)
--- NOTE | 2017-01-21 08:39 | IPNPDOC ---
Text Note Date of Service The patient was seen on 01/21/17. NOTE Subjective: Patient seen and examined at bedside. Episodes of agitation and tremors reported overnight. Patient states her breathing has significantly improved, but acknowledges withdrawal symptoms. Objective: General: NAD, sitting comfortably in chair eating breakfast HEENT: NC/AT, EOMI Lungs: minimal scattered wheezing, good air movement Abd: soft, NT, +BS Ext: no edema A/P: This is a 66 y.o female being admitted for community acquired pneumonia resistant to levaquin complicated with alcohol abuse. 1. Community-acquired pneumonia: -X-ray showed left lower lobe pneumonia -Continue 2 g Rocephin IV along with 100 of IV doxycycline twice a day -cultures pending; mrsa screen negative 2. COPD Exacerbation - tapered to prednisone 30 mg daily - o/p follow up for pulmonary function testing 3. Alcohol withdrawal - serax increased to scheduled with iv ativan prn - folic acid, thiamine, MVI 4. Tobacco abuse - she states she has been smoking about a pack a day since she was a teenager - continue with NRT 5. Basal cell carcinoma -Patient recently underwent a Mohs procedure to remove a basal cell carcinoma from her right upper eyebrow. An order has been placed for triple antibiotics as needed when necessary for the healing wound 6. Hypertension -Metoprolol succinate/amlodipine 7. hypokalemia - check mag; continue to follow and replete as needed 8. hyponatremia - resolved 9. DVT prophylaxis - Lovenox VS,Fishbone, I+O VS, Fishbone, I+O Laboratory Tests 01/21/17 05:36 Red Blood Count 3.73 L, Mean Corpuscular Volume 93.8, Mean Corpuscular Hemoglobin 31.1, Mean Corpuscular Hemoglobin Concent 33.1, Red Cell Distribution Width 13.4, Neutrophils (%) (Auto) 81.4 H, Lymphocytes (%) (Auto) 9.7 L, Monocytes (%) (Auto) 7.5 H, Eosinophils (%) (Auto) 0.1, Basophils (%) ( Auto) 0.2, Neutrophils # (Auto) 15.7 H, Lymphocytes # (Auto) 1.9, Monocytes # ( Auto) 1.5 H, Eosinophils # (Auto) 0.0, Basophils # (Auto) 0.0, Calcium Level 8.7 L Vital Signs Date Time Temp Pulse Resp B/P (MAP) Pulse Ox O2 Delivery O2 Flow Rate FiO2 01/21/17 06:00 98.2 74 20 145/72 (96) 93 Room Air 01/20/17 14:30 1.0 ARTURO PEOPLES MD Jan 21, 2017 08:39
[2017-01-21] MEDS ORDERED: POTASSIUM CHLORIDE 10 MEQ SR TABLET PO ONE (08:45)
[2017-01-21] MEDS ORDERED: predniSONE 10 MG TAB PO SCH (09:00)
[2017-01-21] MEDS: MULTIVITAMINS/MINERALS THERAP 1 TAB PO SCH (09:36)
[2017-01-21] MEDS: OXAZEPAM 15 MG CAP PO SCH ×4 (09:36→23:48)
[2017-01-21] MEDS: NICOTINE 14 MG/24 HR TRANSDERMAL TD SCH (09:36)
[2017-01-21] MEDS: FOLIC ACID 1 MG TAB PO SCH (09:36)
[2017-01-21] MEDS: THIAMINE 100 MG TAB PO SCH (09:36)
[2017-01-21] MEDS: amLODIPine 5 MG TAB PO SCH (09:37)
[2017-01-21] MEDS: METOPROLOL SUCC *XL* 25MG TAB (TopROL *XL*) PO SCH (09:38)
[2017-01-21] MEDS: ENOXAPARIN 40 MG/0.4 ML SYRINGE (J1650) SC SCH (09:38)
[2017-01-21 09:45] LABS: MAGNESIUM LEVEL 1.7 MG/DL (1.8-2.4)
[2017-01-21] MEDS: CEFTRIAXONE SOD 2 GM in APPROPRIATE DILUENT 1 EA IV SCH (18:03)
[2017-01-21] MEDS: DOXYCYCLINE HYCLATE 100 MG TAB PO SCH (20:29)
[2017-01-21] MEDS: LEVOTHYROXINE 50MCG TABLET (0.05MG) PO SCH (20:29)
[2017-01-21] MEDS: PRAVASTATIN 20 MG TAB PO SCH (20:29)
[2017-01-22] VITALS (8 sets, daily range): BP systolic 138–169; BP diastolic 64–77
[2017-01-22] MEDS: OXAZEPAM 15 MG CAP PO SCH ×4 (05:34→23:43)
[2017-01-22] MEDS: ACETAMINOPHEN TAB 650MG DOSE (2X325MG) PO PRN (05:35)
[2017-01-22 05:43] LABS: BASO % 0.2 % (0.0-1.0); EOS % 0.2 % (0.0-3.0); IMMATURE GRANULOCYTE % 1.1 % (0-0); LYMPH # 1.8 10^3/uL (1.5-4.5); LYMPH % 13.6 % (24.0-44.0); MEAN CORPUSCULAR HEMOGLOBIN 31.4 pg (27.0-33.0); MEAN CORPUSCULAR HGB CONC 32.7 g/dl (32.0-36.5); MEAN CORPUSCULAR VOLUME 95.9 fl (80.0-96.0); MONO # 1.4 10^3/uL (0.0-0.8); MONO % 10.3 % (0.0-5.0); NEUTROPHILS # 10.1 10^3/uL (1.8-7.7); NEUTROPHILS % 74.6 % (36.0-66.0); PLATELET COUNT, AUTOMATED 446 10^3/uL (150-450); RED CELL DISTRIBUTION WIDTH 13.7 % (11.5-14.5); WHITE BLOOD COUNT 13.5 10^3/uL (4.0-10.0)
[2017-01-22 05:59] LABS: ANION GAP 5 MEQ/L (8-16); BLOOD UREA NITROGEN 14 MG/DL (7-18); CALCIUM LEVEL 8.9 MG/DL (8.8-10.2); CARBON DIOXIDE LEVEL 30 MEQ/L (21-32); CHLORIDE LEVEL 105 MEQ/L (98-107); CREATININE FOR GFR 0.43 MG/DL (0.55-1.02); GLOMERULAR FILTRATION RATE > 60.0 (>45); GLUCOSE, FASTING 74 MG/DL (80-110); POTASSIUM SERUM 3.7 MEQ/L (3.5-5.1); SODIUM LEVEL 140 MEQ/L (136-145)
[2017-01-22] MEDS: ALBUTEROL SULFATE 2.5 MG/0.5 ML INH NEB SOLN NEB SCH ×4 (07:40→20:14)
--- NOTE | 2017-01-22 08:44 | IPNPDOC ---
Text Note Date of Service The patient was seen on 01/22/17. NOTE Subjective: Patient seen and examined at bedside. She expressed concerns this morning regarding her ability to remain independent, plan of care on discharge, and freedom to make her own lifestyle choices. Denies any medical complaints. Discussed her concerns at length at bedside. Objective: General: NAD, sitting comfortably in chair, anxious HEENT: NC/AT, EOMI Lungs: minimal scattered wheezing, good air movement Heart: +S1S2, RRR Abd: soft, NT, +BS Ext: no edema A/P: This is a 66 y.o female being admitted for community acquired pneumonia resistant to levaquin complicated with alcohol abuse. 1. Community-acquired pneumonia: -X-ray showed left lower lobe pneumonia -Continue 2 g Rocephin IV along with 100 , PO doxycycline twice a day -cultures pending; mrsa screen negative 2. COPD Exacerbation - tapered to prednisone 20 mg daily - o/p follow up for pulmonary function testing 3. Alcohol withdrawal - still having symptoms - continue scheduled serax with iv ativan prn - folic acid, thiamine, MVI 4. Tobacco abuse - she states she has been smoking about a pack a day since she was a teenager - continue with NRT 5. Basal cell carcinoma -Patient recently underwent a Mohs procedure to remove a basal cell carcinoma from her right upper eyebrow. An order has been placed for triple antibiotics as needed when necessary for the healing wound 6. Hypertension -Metoprolol succinate/amlodipine 7. hypokalemia - check mag; continue to follow and replete as needed 8. hyponatremia - resolved 9. DVT prophylaxis - Lovenox VS,Fishbone, I+O VS, Fishbone, I+O Laboratory Tests 01/22/17 05:22 Red Blood Count 3.95 L, Mean Corpuscular Volume 95.9, Mean Corpuscular Hemoglobin 31.4, Mean Corpuscular Hemoglobin Concent 32.7, Red Cell Distribution Width 13.7, Neutrophils (%) (Auto) 74.6 H, Lymphocytes (%) (Auto) 13.6 L, Monocytes (%) (Auto) 10.3 H, Eosinophils (%) (Auto) 0.2, Basophils (%) ( Auto) 0.2, Neutrophils # (Auto) 10.1 H, Lymphocytes # (Auto) 1.8, Monocytes # ( Auto) 1.4 H, Eosinophils # (Auto) 0.0, Basophils # (Auto) 0.0, Calcium Level 8.9 Vital Signs Date Time Temp Pulse Resp B/P (MAP) Pulse Ox O2 Delivery O2 Flow Rate FiO2 01/22/17 06:03 76 144/64 01/22/17 06:00 98.0 16 92 Room Air 01/20/17 14:30 1.0 I&O- Last 24 Hours up to 6 AM 01/23/17 06:00 Intake Total 0 ml Output Total 100 ml Balance -100 ml ARTURO PEOPLES MD Jan 22, 2017 08:44
[2017-01-22] MEDS: ENOXAPARIN 40 MG/0.4 ML SYRINGE (J1650) SC SCH (09:05)
[2017-01-22] MEDS: NICOTINE 14 MG/24 HR TRANSDERMAL TD SCH (09:05)
[2017-01-22] MEDS: DOXYCYCLINE HYCLATE 100 MG TAB PO SCH ×2 (09:06→20:40)
[2017-01-22] MEDS: FOLIC ACID 1 MG TAB PO SCH (09:06)
[2017-01-22] MEDS: THIAMINE 100 MG TAB PO SCH (09:06)
[2017-01-22] MEDS: MULTIVITAMINS/MINERALS THERAP 1 TAB PO SCH (09:06)
[2017-01-22] MEDS: METOPROLOL SUCC *XL* 25MG TAB (TopROL *XL*) PO SCH (09:06)
[2017-01-22] MEDS: amLODIPine 5 MG TAB PO SCH (09:06)
[2017-01-22] MEDS: predniSONE 20 MG TAB PO SCH (09:13)
[2017-01-22 09:30] LABS: MAGNESIUM LEVEL 1.7 MG/DL (1.8-2.4)
[2017-01-22] MEDS: CEFTRIAXONE SOD 2 GM in APPROPRIATE DILUENT 1 EA IV SCH (17:37)
[2017-01-22] MEDS: LEVOTHYROXINE 50MCG TABLET (0.05MG) PO SCH (20:40)
[2017-01-22] MEDS: PRAVASTATIN 20 MG TAB PO SCH (20:40)
[2017-01-23] VITALS: BP 144/64
[2017-01-23] MEDS: ACETAMINOPHEN TAB 650MG DOSE (2X325MG) PO PRN ×5 (00:34→20:48)
[2017-01-23] MEDS: OXAZEPAM 15 MG CAP PO SCH ×3 (05:41→21:31)
[2017-01-23 06:00] VITALS: BP_SYST 132; BP_SYST 152; BP_DIAS 74; BP_DIAS 86
[2017-01-23 06:13] LABS: BASO % 0.4 % (0.0-1.0); EOS # 0.1 10^3/uL (0.0-0.50); IMMATURE GRANULOCYTE % 1.2 % (0-0); LYMPH # 1.8 10^3/uL (1.5-4.5); LYMPH % 16.4 % (24.0-44.0); MEAN CORPUSCULAR HEMOGLOBIN 31.7 pg (27.0-33.0); MEAN CORPUSCULAR HGB CONC 32.7 g/dl (32.0-36.5); MONO # 1.4 10^3/uL (0.0-0.8); MONO % 12.7 % (0.0-5.0); NEUTROPHILS # 7.5 10^3/uL (1.8-7.7); NEUTROPHILS % 68.3 % (36.0-66.0); PLATELET COUNT, AUTOMATED 386 10^3/uL (150-450); RED CELL DISTRIBUTION WIDTH 13.8 % (11.5-14.5); WHITE BLOOD COUNT 10.9 10^3/uL (4.0-10.0)
[2017-01-23 06:35] LABS: ANION GAP 8 MEQ/L (8-16); BLOOD UREA NITROGEN 12 MG/DL (7-18); CALCIUM LEVEL 8.3 MG/DL (8.8-10.2); CARBON DIOXIDE LEVEL 27 MEQ/L (21-32); CHLORIDE LEVEL 106 MEQ/L (98-107); CREATININE FOR GFR 0.51 MG/DL (0.55-1.02); GLOMERULAR FILTRATION RATE > 60.0 (>45); GLUCOSE, FASTING 83 MG/DL (80-110); MAGNESIUM LEVEL 1.5 MG/DL (1.8-2.4); POTASSIUM SERUM 3.8 MEQ/L (3.5-5.1); SODIUM LEVEL 141 MEQ/L (136-145)
[2017-01-23] MEDS: ALBUTEROL SULFATE 2.5 MG/0.5 ML INH NEB SOLN NEB SCH ×4 (07:21→20:11)
[2017-01-23] MEDS: MULTIVITAMINS/MINERALS THERAP 1 TAB PO SCH (08:18)
[2017-01-23] MEDS: FOLIC ACID 1 MG TAB PO SCH (08:18)
[2017-01-23] MEDS: THIAMINE 100 MG TAB PO SCH (08:18)
[2017-01-23] MEDS: METOPROLOL SUCC *XL* 25MG TAB (TopROL *XL*) PO SCH (08:18)
[2017-01-23] MEDS: NICOTINE 14 MG/24 HR TRANSDERMAL TD SCH (08:18)
[2017-01-23] MEDS: DOXYCYCLINE HYCLATE 100 MG TAB PO SCH ×2 (08:19→20:45)
[2017-01-23] MEDS: predniSONE 20 MG TAB PO SCH (08:19)
[2017-01-23] MEDS: amLODIPine 5 MG TAB PO SCH (08:19)
[2017-01-23] MEDS: ENOXAPARIN 40 MG/0.4 ML SYRINGE (J1650) SC SCH (08:20)
--- NOTE | 2017-01-23 09:12 | IPNPDOC ---
Text Note Date of Service The patient was seen on 01/23/17. NOTE Subjective: Patient seen and examined at bedside. In good spirits, anxious to return home. She feels her withdrawal symptoms have much improved. Objective: General: NAD, sitting comfortably in chair HEENT: NC/AT, EOMI Lungs: minimal scattered wheezing, good air movement Heart: +S1S2, RRR Abd: soft, NT, +BS Ext: no edema A/P: This is a 66 y.o female being admitted for community acquired pneumonia resistant to levaquin complicated with alcohol abuse. 1. Community-acquired pneumonia: -X-ray showed left lower lobe pneumonia -Continue PO doxycycline twice a day, could likely discontinue in 24 hours -cultures unremarkable; mrsa screen negative 2. COPD Exacerbation - tapered to prednisone 10 mg daily - o/p follow up for pulmonary function testing 3. Alcohol withdrawal - still having symptoms - tapered scheduled serax - folic acid, thiamine, MVI 4. Tobacco abuse - she states she has been smoking about a pack a day since she was a teenager - continue with NRT 5. Basal cell carcinoma -Patient recently underwent a Mohs procedure to remove a basal cell carcinoma from her right upper eyebrow. An order has been placed for triple antibiotics as needed when necessary for the healing wound 6. Hypertension -Metoprolol succinate/amlodipine 7. hypomagnesemia - continue to follow and replete as needed 8. hypokalemia/hyponatremia - resolved 9. DVT prophylaxis - Lovenox VS,Fishbone, I+O VS, Fishbone, I+O Laboratory Tests 01/23/17 06:00 Red Blood Count 3.69 L, Mean Corpuscular Volume 97.0 H, Mean Corpuscular Hemoglobin 31.7, Mean Corpuscular Hemoglobin Concent 32.7, Red Cell Distribution Width 13.8, Neutrophils (%) (Auto) 68.3 H, Lymphocytes (%) (Auto) 16.4 L, Monocytes (%) (Auto) 12.7 H, Eosinophils (%) (Auto) 1.0, Basophils (%) ( Auto) 0.4, Neutrophils # (Auto) 7.5, Lymphocytes # (Auto) 1.8, Monocytes # (Auto ) 1.4 H, Eosinophils # (Auto) 0.1, Basophils # (Auto) 0.0, Calcium Level 8.3 L Vital Signs Date Time Temp Pulse Resp B/P (MAP) Pulse Ox O2 Delivery O2 Flow Rate FiO2 01/23/17 08:18 71 152/86 01/23/17 06:00 97.9 20 93 Room Air 01/20/17 14:30 1.0 ARTURO PEOPLES MD Jan 23, 2017 09:12
[2017-01-23] MEDS: MAG SULF 1GM/100ML (MAG RUN) 1 GM in APPROPRIATE DILUENT 1 EA IV SCH ×2 (10:27→11:56)
[2017-01-23 12:00] VITALS: BP 138/80
[2017-01-23 14:00] VITALS: BP 134/44
[2017-01-23 19:30] VITALS: BP 148/70
[2017-01-23] MEDS: LEVOTHYROXINE 50MCG TABLET (0.05MG) PO SCH (20:45)
[2017-01-23] MEDS: PRAVASTATIN 20 MG TAB PO SCH (20:45)
[2017-01-23 22:00] VITALS: BP 148/70
[2017-01-24] VITALS: BP 148/70
[2017-01-24] MEDS: ACETAMINOPHEN TAB 650MG DOSE (2X325MG) PO PRN ×2 (02:27→06:31)
[2017-01-24] MEDS: OXAZEPAM 15 MG CAP PO SCH (05:55)
[2017-01-24 06:00] VITALS: BP 140/80
[2017-01-24 06:02] LABS: BASO # 0.1 10^3/uL (0.0-0.2); BASO % 0.7 % (0.0-1.0); EOS # 0.2 10^3/uL (0.0-0.50); EOS % 1.6 % (0.0-3.0); IMMATURE GRANULOCYTE % 1.3 % (0-0); LYMPH % 19.4 % (24.0-44.0); MEAN CORPUSCULAR HEMOGLOBIN 31.5 pg (27.0-33.0); MEAN CORPUSCULAR HGB CONC 32.5 g/dl (32.0-36.5); MEAN CORPUSCULAR VOLUME 96.8 fl (80.0-96.0); MONO # 1.3 10^3/uL (0.0-0.8); MONO % 12.4 % (0.0-5.0); NEUTROPHILS # 6.5 10^3/uL (1.8-7.7); NEUTROPHILS % 64.6 % (36.0-66.0); PLATELET COUNT, AUTOMATED 383 10^3/uL (150-450); RED CELL DISTRIBUTION WIDTH 13.7 % (11.5-14.5); WHITE BLOOD COUNT 10.1 10^3/uL (4.0-10.0)
[2017-01-24 06:08] VITALS: BP 140/80
[2017-01-24 06:18] LABS: ANION GAP 8 MEQ/L (8-16); BLOOD UREA NITROGEN 15 MG/DL (7-18); CALCIUM LEVEL 8.6 MG/DL (8.8-10.2); CARBON DIOXIDE LEVEL 28 MEQ/L (21-32); CHLORIDE LEVEL 104 MEQ/L (98-107); CREATININE FOR GFR 0.56 MG/DL (0.55-1.02); GLOMERULAR FILTRATION RATE > 60.0 (>45); GLUCOSE, FASTING 79 MG/DL (80-110); MAGNESIUM LEVEL 2.1 MG/DL (1.8-2.4); POTASSIUM SERUM 4.1 MEQ/L (3.5-5.1); SODIUM LEVEL 140 MEQ/L (136-145)
[2017-01-24] MEDS: ALBUTEROL SULFATE 2.5 MG/0.5 ML INH NEB SOLN NEB SCH (07:24)
[2017-01-24 08:21] VITALS: BP 140/80
[2017-01-24] MEDS: METOPROLOL SUCC *XL* 25MG TAB (TopROL *XL*) PO SCH (08:21)
[2017-01-24] MEDS: DOXYCYCLINE HYCLATE 100 MG TAB PO SCH (08:22)
[2017-01-24] MEDS: amLODIPine 5 MG TAB PO SCH (08:22)
[2017-01-24] MEDS: MULTIVITAMINS/MINERALS THERAP 1 TAB PO SCH (08:22)
[2017-01-24] MEDS: THIAMINE 100 MG TAB PO SCH (08:22)
[2017-01-24] MEDS: NICOTINE 14 MG/24 HR TRANSDERMAL TD SCH (08:22)
[2017-01-24] MEDS: FOLIC ACID 1 MG TAB PO SCH (08:22)
[2017-01-24] MEDS: ENOXAPARIN 40 MG/0.4 ML SYRINGE (J1650) SC SCH (08:23)
[2017-01-24] MEDS ORDERED: predniSONE 10 MG TAB PO SCH (09:00)
[2017-01-24] MEDS ORDERED: VITMTA PO (09:43)
[2017-01-24] MEDS ORDERED: AMLO5TAB2 PO (09:43)
[2017-01-24] MEDS ORDERED: NICO14PA TD (09:43)
[2017-01-24] MEDS ORDERED: FOLI1TAB4 PO (09:43)
[2017-01-24] MEDS ORDERED: METO1TAB32 PO (09:43)
[2017-01-24] MEDS ORDERED: THIA100TA PO (09:43)
[2017-01-24] MEDS ORDERED: OXAZ30CA2 PO (09:48)
--- NOTE | 2017-01-24 11:48 | DS.PDOC ---
Discharge Summary General Date of Admission Jan 17, 2017 at 13:35 Date of Discharge 01/24/17 Discharge Summary PROCEDURES PERFORMED DURING STAY: [None]. DISCHARGE DIAGNOSES: 1. Alcohol withdrawal. 2. Pneumonia 3. COPD exacerbation 4. Nicotine abuse 5. Basal cell carcinoma 6. HTN COMPLICATIONS/CHIEF COMPLAINT: Cap, Copd. HISTORY OF PRESENT ILLNESS: Patient presents with a 2 week history of dry non productive cough, along with sinus pain. She admits to a subjective fever and chills during the beginning of the disease process. Patient presented to [facility] ED last week and was diagnosed with pneumonia. Patient was prescribed Levaquin with prednisone and albuterol nebulizer. Patient went home and adhered to her treatment regimen however over the course of the week she noticed that her symptoms were not improving, or worsening. They stayed the same. This morning patient reported to her PCP Dr. Cleveland. In the office, patient was in distress her O2 sat was 88 and x-ray showed left lower lobe pneumonia. Patient was instructed to present to this ED. On presentation patient admitted to shortness of breath, increased cough, however denied chest pain palpitation and rapid heart rate. Patient admits to having 1 prior episode of pneumonia in the past where she was treated as an outpatient with antibiotics. Patient is a 1 pack-a-day smoker for the last 30 years. She is also having drinker. Patient did not get the flu shot this year, however she has received both the Prevnar and Pneumovax vaccines. She was admitted for community-acquired pneumonia resistance to one-week treatment is Levaquin. HOSPITAL COURSE: Patient responded well to treatment for her pneumonia, eventually being weaned off oxygen. She was experiencing signs and symptoms of alcohol withdrawal, which improved with scheduled serax. Her symptoms abated, and she was discharged for outpatient followup. DISCHARGE MEDICATIONS: Please see below. ALLERGIES: Please see below. PHYSICAL EXAMINATION ON DISCHARGE: VITAL SIGNS: Please see below. GENERAL: NAD HEENT: NC/AT, EOMI, PERRL NECK: supple CARDIOVASCULAR EXAMINATION: +S1S2, RRR RESPIRATORY EXAMINATION: CTA B/L ABDOMINAL EXAMINATION: soft, NT, +BS EXTREMITIES: no edema SKIN: no rashes NEUROLOGICAL EXAMINATION: no gross focal deficits PSYCHIATRIC EXAMINATION: AAOx3 ACTIVITY: [As tolerated]. DISCHARGE PLAN: DISPOSITION: . DISCHARGE INSTRUCTIONS: 1. Follow up with PCP in 1-5 days. 2. No alcoholic beverages. 3. Stop smoking. 4. Medications as directed. DISCHARGE CONDITION: [Stable]. TIME SPENT ON DISCHARGE: Greater than 30 minutes. Vital Signs/I&Os Vital Signs Date Time Temp Pulse Resp B/P (MAP) Pulse Ox O2 Delivery O2 Flow Rate FiO2 01/24/17 09:33 Room Air 01/24/17 08:21 69 140/80 01/24/17 06:00 98.0 18 95 01/20/17 14:30 1.0 I&O- Last 24 Hours up to 6 AM 01/25/17 06:00 Intake Total 360 ml Balance 360 ml Laboratory Data Labs 24H Laboratory Tests 2 01/24/17 05:48: Immature Granulocyte % (Auto) 1.3H, White Blood Count 10.1H, Red Blood Count 3.78L, Hemoglobin 11.9L, Hematocrit 36.6, Mean Corpuscular Volume 96.8H, Mean Corpuscular Hemoglobin 31.5, Mean Corpuscular Hemoglobin Concent 32.5, Red Cell Distribution Width 13.7, Platelet Count 383, Neutrophils (%) (Auto) 64.6, Lymphocytes (%) (Auto) 19.4L, Monocytes (%) (Auto) 12.4H, Eosinophils (%) (Auto ) 1.6, Basophils (%) (Auto) 0.7, Neutrophils # (Auto) 6.5, Lymphocytes # (Auto) 2.0, Monocytes # (Auto) 1.3H, Eosinophils # (Auto) 0.2, Basophils # (Auto) 0.1, Immature Granulocyte # (Auto) 0.1H, Nucleated Red Blood Cells % (auto) 0.0, Anion Gap 8, Glomerular Filtration Rate > 60.0, Blood Urea Nitrogen 15, Creatinine 0.56, Sodium Level 140, Potassium Level 4.1, Chloride Level 104, Carbon Dioxide Level 28, Calcium Level 8.6L, Magnesium Level 2.1 CBC/BMP Laboratory Tests 01/24/17 05:48 Red Blood Count 3.78 L, Mean Corpuscular Volume 96.8 H, Mean Corpuscular Hemoglobin 31.5, Mean Corpuscular Hemoglobin Concent 32.5, Red Cell Distribution Width 13.7, Neutrophils (%) (Auto) 64.6, Lymphocytes (%) (Auto) 19.4 L, Monocytes (%) (Auto) 12.4 H, Eosinophils (%) (Auto) 1.6, Basophils (%) ( Auto) 0.7, Neutrophils # (Auto) 6.5, Lymphocytes # (Auto) 2.0, Monocytes # (Auto ) 1.3 H, Eosinophils # (Auto) 0.2, Basophils # (Auto) 0.1, Calcium Level 8.6 L Microbiology Microbiology 01/17/17 Blood Culture - Final, Complete NO GROWTH AFTER 5 DAYS 01/17/17 Blood Culture - Final, Complete NO GROWTH AFTER 5 DAYS 01/18/17 MRSA Screen - Final, Complete 01/18/17 Gram Stain - Final, Complete 01/18/17 Sputum Culture - Final, Complete Yeast Like Organism Discharge Medications Scheduled (Calcium + D3 600-200 mg-Unit) 1 Tab Tab, 1 TAB PO QHS, (Reported) Amlodipine Besylate (Amlodipine Besylate) 5 Mg Tab, 5 MG PO DAILY Chlorthalidone (Chlorthalidone) 25 Mg Tab, 25 MG PO QHS, (Reported) Folic Acid (Folic Acid) 1 Mg Tab, 1 MG PO DAILY Levothyroxine Sodium (Synthroid) 50 Mcg Tab, 50 MCG PO QHS, (Reported) Metoprolol Succinate (Metoprolol Succinate ER) 25 Mg Tab, 25 MG PO QAM Multivitamins *[facility]OCK[facility]* (Thera M Plus *[facility]OCK[facility]*) 1 Tab Tab, 1 TAB PO DAILY Nicotine (Nicotine Transdermal Syst) 14 Mg/24 Hr Dis, 1 PATCH TD DAILY Oxazepam (Oxazepam) 30 Mg Cap, 30 MG PO BID first dose evevning of 01/24/17 Pravastatin Sod (Pravastatin Sodium) 40 Mg Tab, 40 MG PO QHS, (Reported) Thiamine Hcl (Thiamine Hcl) 100 Mg Tab, 100 MG PO DAILY Scheduled PRN (Tylenol) 325 Mg Cap, 650 MG PO Q4H PRN for PAIN, (Reported) Allergies Coded Allergies: Lisinopril (Verified Allergy, Unknown, 06/28/14) Prochlorperazine (Verified Allergy, Unknown, 06/28/14) Cephalexin (Verified Adverse Reaction, Mild, N/V, 01/17/17) Codeine (Verified Adverse Reaction, Mild, N/V, 06/28/14) Meperidine (Verified Adverse Reaction, Mild, N/V, 06/28/14) ARTURO PEOPLES MD Jan 24, 2017 11:48
== END 2017-01-24 12:09 | disposition home or self-care (01) | DRG 190 ==
LOC: M ED 11:19 → EDBD 11:19 → M ED INP 13:35 → M MSPAV 14:52
PROVIDERS: ADMIT Family Medicine; ATTEND Internal Medicine
DX: J44.1 Chronic obstructive pulmonary disease with (acute) exacerbation (principal); J18.9 Pneumonia, unspecified organism; J90 Pleural effusion, not elsewhere classified; J98.11 Atelectasis; F10.239 Alcohol dependence with withdrawal, unspecified; E87.1 Hypo-osmolality and hyponatremia; F17.200 Nicotine dependence, unspecified, uncomplicated; I10 Essential (primary) hypertension; Z79.899 Other long term (current) drug therapy; Z88.8 Allergy status to other drugs, medicaments and biological substances; Z88.5 Allergy status to narcotic agent; E78.5 Hyperlipidemia, unspecified; K44.9 Diaphragmatic hernia without obstruction or gangrene; E87.6 Hypokalemia; Z85.828 Personal history of other malignant neoplasm of skin

== ENCOUNTER → 2017-01-17 | Outpatient (CLI) | payer MEDICARE ==
[~2017-01-17] MED LIST changes: +AMLO10TA2 PO; +CALC600T57 PO; +CHLO25TA PO; +LEVA1TAB2 PO; +LEVO25TA5 PO; +LEVO500T3 PO; +LEVO50TA5 PO; +METO1TAB87 PO; +PRED20TA PO; +TYLE325C PO
--- NOTE | 2017-01-17 10:27 | REP ---
CHEST, TWO VIEWS: Two views of the chest are performed and compared to a prior study of 04/11/2012. There is a small left pleural effusion. There is adjacent left basilar atelectasis/infiltrate. There is diffuse interstitial fibrosis. Heart is not enlarged. There is mild calcification of the thoracic aorta. The mediastinal silhouette appears unchanged. There are degenerative changes of the spine. There are old right rib fractures. IMPRESSION: Small left effusion with adjacent left basilar atelectasis/infiltrate. Signed by Amaury Recinos MD 01/19/2017 08:54 A
== END ==
LOC: M LRY 09:37
PROVIDERS: ATTEND Family Medicine
DX: J44.1 Chronic obstructive pulmonary disease with (acute) exacerbation (principal); J90 Pleural effusion, not elsewhere classified; J98.11 Atelectasis

== ENCOUNTER → 2017-01-17 | Outpatient (REF) | payer MEDICARE ==
[2017-01-17 11:51] LABS: BASO # 0.1 10^3/uL (0.0-0.2); BASO % 0.3 % (0.0-1.0); IMMATURE GRANULOCYTE % 1.9 % (0-0); LYMPH # 0.8 10^3/uL (1.5-4.5); LYMPH % 3.6 % (24.0-44.0); MEAN CORPUSCULAR HEMOGLOBIN 32.1 pg (27.0-33.0); MEAN CORPUSCULAR HGB CONC 34.9 g/dl (32.0-36.5); MONO # 1.1 10^3/uL (0.0-0.8); MONO % 4.9 % (0.0-5.0); NEUTROPHILS # 19.7 10^3/uL (1.8-7.7); NEUTROPHILS % 89.3 % (36.0-66.0); PLATELET COUNT, AUTOMATED 527 10^3/uL (150-450); RED CELL DISTRIBUTION WIDTH 12.6 % (11.5-14.5); WHITE BLOOD COUNT 22.1 10^3/uL (4.0-10.0)
[2017-01-17 12:45] LABS: ALBUMIN 3.2 GM/DL (3.2-5.2); ALBUMIN/GLOBULIN RATIO 0.97 (1.00-1.93); ALKALINE PHOSPHATASE 139 U/L (45-117); ALT/SGPT 26 U/L (12-78); ANION GAP 11 MEQ/L (8-16); AST/SGOT 32 U/L (7-37); BILIRUBIN,TOTAL 0.3 MG/DL (0.2-1.0); BLOOD UREA NITROGEN 9 MG/DL (7-18); CALCIUM LEVEL 9.2 MG/DL (8.8-10.2); CARBON DIOXIDE LEVEL 27 MEQ/L (21-32); CHLORIDE LEVEL 86 MEQ/L (98-107); CREATININE FOR GFR 0.78 MG/DL (0.55-1.02); GLOMERULAR FILTRATION RATE > 60.0 (>45); GLUCOSE, FASTING 101 MG/DL (80-110); POTASSIUM SERUM 4.1 MEQ/L (3.5-5.1); SODIUM LEVEL 124 MEQ/L (136-145); TOTAL PROTEIN 6.5 GM/DL (6.4-8.2)
== END ==
LOC: M SFHCLERA 09:32
PROVIDERS: ATTEND Family Medicine
DX: J44.1 Chronic obstructive pulmonary disease with (acute) exacerbation (principal)

== ENCOUNTER → 2017-01-27 | Outpatient (REF) | payer MEDICARE ==
[~2017-01-27] MED LIST changes: +AMLO5TAB2 PO; +CALC600T57 PO; +CHLO25TA PO; +FOLI1TAB4 PO; +LEVO500T3 PO; +LEVO50TA5 PO; +METO1TAB32 PO; +NICO14PA TD; +OXAZ30CA2 PO; +THIA100TA PO; +TYLE325C PO; +VITMTA PO
== END ==
LOC: M SFHCLERA 13:47
PROVIDERS: ATTEND Family Medicine
DX: R19.7 Diarrhea, unspecified (principal)

== ENCOUNTER → 2017-02-17 | Outpatient (REF) | payer MEDICARE ==
[2017-02-17 12:05] LABS: TOTAL 25(OH) VITAMIN D 16.9 NG/ML (30.0-100.0)
== END ==
LOC: M SFHCLERA 09:37
DX: J44.9 Chronic obstructive pulmonary disease, unspecified (principal); Z13.21 Encounter for screening for nutritional disorder; Z53.20 Procedure and treatment not carried out because of patient's decision for unspecified reasons; F34.1 Dysthymic disorder; I10 Essential (primary) hypertension; F10.10 Alcohol abuse, uncomplicated
CPT/HCPCS: 82306

== ENCOUNTER → 2018-02-13 | Outpatient (REF) | payer MEDICARE ==
[~2018-02-13] MED LIST changes: -AMLO10TA2 PO; +AMLO10TA5 PO; -AMLO5TAB2 PO; +AMLO5TAB6 PO; +FOLI1TAB11 PO; -FOLI1TAB4 PO
[2018-02-13 11:55] LABS: HEMOGLOBIN A1c 5.1 %
[2018-02-13 12:16] LABS: ALBUMIN 3.2 GM/DL (3.2-5.2); ALT/SGPT 76 U/L (12-78); BILIRUBIN,TOTAL 0.3 MG/DL (0.2-1.0); BLOOD UREA NITROGEN 9 MG/DL (7-18); CALCIUM LEVEL 9.2 MG/DL (8.8-10.2); CARBON DIOXIDE LEVEL 32 MEQ/L (21-32); CHLORIDE LEVEL 98 MEQ/L (98-107); CHOLESTEROL LEVEL 220 MG/DL (<200); CHOLESTEROL RISK RATIO 1.517 (<5); CREATININE FOR GFR 0.65 MG/DL (0.55-1.30); GLOMERULAR FILTRATION RATE > 60.0 (>45); GLUCOSE, FASTING 84 MG/DL (70-100); HDL CHOLESTEROL 145 MG/DL (>40); LDL CHOLESTEROL 62 MG/DL (<100); NON-HDL-C 75 MG/DL; SODIUM LEVEL 137 MEQ/L (136-145); TOTAL PROTEIN 6.6 GM/DL (6.4-8.2); TRIGLYCERIDES LEVEL 67 MG/DL (<150)
== END ==
LOC: M SFHCLERA 08:03
PROVIDERS: ATTEND Family Medicine
DX: E03.9 Hypothyroidism, unspecified (principal); I10 Essential (primary) hypertension; Z13.1 Encounter for screening for diabetes mellitus
CPT/HCPCS: 80053; 80061; 83036; 84443; 90682; G0008

== ENCOUNTER 2018-10-23 12:13 | Inpatient (IN) | payer MEDICARE ==
[~2018-10-23] VITALS: Ht 157.5 cm; Wt 51.3 kg
[~2018-10-23 12:13] MED LIST changes: -/AMLO25TA PO; +MULTIVITAMINS/MINERALS THERAP 1 TAB PO SCH; +NORV2TAB PO
[2018-10-23] MEDS ORDERED: IPRA0.00 INH (12:55)
[2018-10-23 13:02] LABS: BASO # 0.1 10^3/uL (0.0-0.2); BASO % 0.6 % (0.0-1.0); HEMATOCRIT 40.4 % (36.0-47.0); HEMOGLOBIN 14.1 g/dl (12.0-15.5); LYMPH # 0.5 10^3/uL (1.5-5.0); LYMPH % 3.2 % (24.0-44.0); MEAN CORPUSCULAR HGB CONC 34.9 g/dl (32.0-36.5); MEAN CORPUSCULAR VOLUME 97.3 fl (80.0-96.0); MONO % 14.6 % (0.0-5.0); NEUTROPHILS # 11.5 10^3/uL (1.5-8.5); PLATELET COUNT, AUTOMATED 402 10^3/uL (150-450); RED BLOOD COUNT 4.15 10^6/uL (4.00-5.40); WHITE BLOOD COUNT 14.2 10^3/uL (4.0-10.0)
[2018-10-23 13:29] LABS: MONO # 2.1 10^3/uL (0.0-0.8)
[2018-10-23 13:32] LABS: BLOOD UREA NITROGEN 11 MG/DL (7-18); CALCIUM LEVEL 9.3 MG/DL (8.8-10.2); CARBON DIOXIDE LEVEL 30 MEQ/L (21-32); CHLORIDE LEVEL 84 MEQ/L (98-107); CK-MB VALUE MASS < 1.0 NG/ML (<3.6); CPK CREATINE PHOSPHOKINASE 19 U/L (26-192); CREATININE FOR GFR 0.57 MG/DL (0.55-1.30); GLOMERULAR FILTRATION RATE > 60.0 (>39); GLUCOSE, FASTING 108 MG/DL (70-100); MB/CK RELATIVE INDEX 5.26 (< OR =4); POTASSIUM SERUM 3.4 MEQ/L (3.5-5.1); SODIUM LEVEL 125 MEQ/L (136-145); TROPONIN I < 0.02 NG/ML (< 0.10)
--- NOTE | 2018-10-23 13:43 | REP ---
PORTABLE CHEST: AP portable view of the chest is performed and compared to prior studies, most recently 01/17/2017. There are patchy opacities in each lung base representing mild patchy infiltrates or fibroatelectasis. Heart is normal in size. There is calcification of the thoracic aorta. There are degenerative changes of the spine. IMPRESSION: Mild patchy infiltrates versus fibroatelectasis bilateral lung bases. Electronically Signed by Amaury Recinos MD 10/23/2018 04:21 P
[2018-10-23] MEDS ORDERED: DOXYCYCLINE HYCLATE 100 MG in D5W MINI-BAG PLUS 100 ML IV ONE (15:00)
[2018-10-23] MEDS ORDERED: IPRATROPIUM 0.5MG/ALBUTEROL 2.5MG INH SOL UD 3ML (DUONEB)(J7620) NEB ONE (15:00)
[2018-10-23] MEDS ORDERED: dexameTHASONE 20 MG/5 ML VIAL (J1100) IV ONE (15:00)
[2018-10-23] MEDS ORDERED: ALBUTEROL SULFATE 2.5 MG/0.5 ML INH NEB SOLN INH ONE (15:00)
[2018-10-23] MEDS ORDERED: ACET-908 PO (16:16)
[2018-10-23] MEDS ORDERED: LEVO25TA5 PO (16:16)
[2018-10-23] MEDS ORDERED: AMLO5TAB6 PO (16:16)
[2018-10-23] MEDS ORDERED: VITMTA PO (16:16)
[2018-10-23] MEDS ORDERED: METO25TA4 PO (16:16)
[2018-10-23] MEDS ORDERED: DRIS50003 PO (16:18)
[2018-10-23] MEDS ORDERED: LORazepam 2 MG TAB PO PRN (17:00)
[2018-10-23] MEDS ORDERED: ALBUTEROL SULFATE 2.5 MG/0.5 ML INH NEB SOLN INH PRN (17:00)
[2018-10-23] MEDS: FOLIC ACID 1 MG TAB PO SCH (19:32)
[2018-10-23] MEDS: THIAMINE 100 MG TAB PO SCH ×2 (19:32→22:39)
[2018-10-23] MEDS: IPRATROPIUM 0.5MG/ALBUTEROL 2.5MG INH SOL UD 3ML (DUONEB)(J7620) INH SCH (19:57)
[2018-10-23 21:00] VITALS: BP 120/65
[2018-10-23] MEDS ORDERED: CHLORTHALIDONE 25 MG TAB PO SCH (21:00)
[2018-10-23 22:00] VITALS: BP 146/70
[2018-10-23] MEDS: ENOXAPARIN 40 MG/0.4 ML SYRINGE (J1650) SC SCH (22:39)
[2018-10-24] VITALS (7 sets, daily range): BP systolic 106–118; BP diastolic 38–64
--- NOTE | 2018-10-24 02:05 | HPEPDOC ---
General Date of Admission Oct 23, 2018 at 16:49 Date of Service: Oct 23, 2018 Attending Physician: IKE ARELLANO MD Chief Complaint The patient is a 68-year-old female admitted with a reason for visit of Community Acquired Pneumonia. Source: Patient, Family Exam Limitations: No limitations Timing/Duration: Week(s) (2 weeks) Severity: Severe Associated Symptoms: Cough, Loss of appetite, Malaise, Weakness Home Medications Scheduled Amlodipine Besylate (Amlodipine Besylate) 5 Mg Tablet, 5 MG PO QHS, (Reported) Calcium Carbonate/Vitamin D3 (Calcium 600-Vit D3 200 Tablet) 1 Tab Tab, 1 TAB PO QHS, (Reported) Chlorthalidone (Chlorthalidone) 25 Mg Tab, 25 MG PO QHS, (Reported) Ergocalciferol (Vitamin D2) (Drisdol) 50,000 Unit Capsule, 50,000 UNIT PO QWEEK, (Reported) MONDAYS Levothyroxine Sodium (Levothyroxine Sodium) 25 Mcg Tablet, 25 MCG PO QHS, (Reported) Metoprolol Tartrate (Metoprolol Tartrate) 25 Mg Tablet, 50 MG PO QHS, (Reported) Multivitamins (Thera M Plus Tablet) 1 Each Tablet, 1 TAB PO QHS, (Reported) Scheduled PRN Acetaminophen (Acetaminophen) 325 Mg Tablet, 650 MG PO Q4H PRN for PAIN / FEVER, (Reported) Ipratropium/Albuterol Sulfate (Iprat-Albut 0.5-3(2.5) mg/3 ml) 3 Ml Ampul.neb, 1 VIAL INH Q6H PRN for SOB/WHEEZING, (Reported) Allergies Coded Allergies: meperidine (Verified Allergy, Unknown, 10/23/18) prochlorperazine (Verified Adverse Reaction, Intermediate, RIGIDITY OF JAW, 10/23/18) cephalexin (Verified Adverse Reaction, Mild, N/V, 10/23/18) codeine (Verified Adverse Reaction, Mild, N/V, 10/23/18) lisinopril (Verified Adverse Reaction, Mild, INCREASES POTASSIUM LEVEL, 10/23/18) Past Medical History Medical History Hypertension Smoking, and pack-a-day for 30 years History of hyperkalemia Hyperlipidemia Hiatal hernia with history of gastritis Osteopenia COPD Heavy alcohol use patient reports 3-5 glasses of wine day prior history of community acquired pneumonia Surgical History Hysterectomy 30 years ago, tonsillectomy when she was 17, urethroplasty Family History Significant Family History: No pertinent family hx Social History * Smoker: current smoker Alcohol: heavy Drugs: denies Recent Travel/Sick Contacts: Denies: Recent travel, Recent sick contacts Psychosocial History: No pertinent psych hx A-FIB/CHADSVASC A-FIB History Current/History of A-Fib/PAF?: No Current PO Anticoag Therapy: No Age/Risk Factor Scoring CHADSVASC: CHADSVASC Response (Comments) Value Age Risk Factor Age 65-74 years old 1 Gender Risk Factor Female 1 Hx of CHF No 0 Hx of HTN No 0 Hx of Stroke/TIA/or VTE No 0 Hx of Diabetes No 0 Hx of Vascular Disease No 0 Total 2 Treatment Treatment ordered: NONE Reason Anticoagulant not given: Not indicated/[id number] Review of Systems Constitutional: Reports: Weakness, Fatigue, Lethargy; Denies: Chills, Fever, Night Sweats Eyes: Denies: Pain, Vision change, Conjunctivae inflammation ENT: Reports: Sinus Congestion, Post Nasal Drip, Sore Throat; Denies: Head Aches, Ear Pain, Dysphagia, Epistaxis Skin: Reports: Bruising, Dry, Nail Changes; Denies: Rash, Lesions, Jaundice, Itching, Breakdown Pulmonary: Reports: Dyspnea, Cough, Pleuritic Chest Pain Cardiovascular: Denies: Chest Pain, Palpitations, Orthopnea, Paroxysmal Noc. Dyspnea, Edema, Lt Headedness Gastrointestinal: Denies: Nausea, Vomiting, Abdominal Pain, Diarrhea, Constipation, Melena, Hematochezia Genitourinary: Denies: Dysuria, Frequency, Incontinence, Retention Hematologic: Denies: Bruising, Bleeding Excessively Endocrine: Denies: Polydipsia, Polyphagia, Polyuria, Heat Intolerance, Cold Intolerance, Other Endocrine Sx Musculoskeletal: Denies: Neck Pain, Back Pain, Shoulder Pain, Arm Pain, Hand Pain, Leg Pain, Foot Pain, Joint Pain, Muscle Pain, Spasms, Other Symptoms Neurological: Denies: Weakness, Numbness, Incoordination, Change in speech, Confusion, Seizures, Other Symptoms Psych: Denies: Mood Normal, Anxiety, Depression, Memory Issues, Thoughts of Self Harm, Anger, Thoughts of Harming Other, Other Psych Physical Examination General Exam: Positive: Alert, Cooperative, Mild Distress Eye Exam: Positive: PERRLA, Conjunctiva & lids normal, EOMI; Negative: Sclera icteric ENT Exam: Positive: Atraumatic, Mucous membr. moist/pink, Pharynx Normal, Nares Patent (deviated septum) Neck Exam: Positive: Supple, +2 carotid pulse wo bruit; Negative: JVD, thyromegaly, Lymphadenopathy Chest Exam: Positive: Clear to auscultation, Normal air movement, Rales, Wheezing; Negative: Rhonchi, Diminished Heart Exam: Positive: Rate Normal, Regular Rhythm, Normal S1, Normal S2; Negative: Murmurs, Rubs Abdomen Exam: Positive: Normal bowel sounds, Soft; Negative: Tenderness, Hepatospenomegaly Extremity Exam: Positive: Normal pulses; Negative: Clubbing, Cyanosis, Edema Skin Exam: Positive: Other skin issue (scattered numerous bruising, vehemently denies falling. "bumps into thing") Neuro Exam: Positive: Normal Gait, Normal Speech, Cranial Nerves 3-12 NL, Reflexes 2+ Psych Exam: Positive: Mental status NL, Mood NL, Oriented x 3 Vital Signs Vital Signs Date Time Temp Pulse Resp B/P (MAP) Pulse Ox O2 Delivery O2 Flow Rate FiO2 10/23/18 21:00 96.6 92 18 120/65 (83) 93 3.0 10/23/18 20:09 Nasal Cannula Laboratory Data Labs 24H Laboratory Tests 2 10/23/18 12:40: Immature Granulocyte % (Auto) 0.6, White Blood Count 14.2H, Red Blood Count 4.15, Hemoglobin 14.1, Hematocrit 40.4, Mean Corpuscular Volume 97.3H, Mean Corpuscular Hemoglobin 34.0H, Mean Corpuscular Hemoglobin Concent 34.9, Red Cell Distribution Width 12.2, Platelet Count 402, Neutrophils (%) (Auto) 81.0H, Lymphocytes (%) (Auto) 3.2L, Monocytes (%) (Auto) 14.6H, Eosinophils (%) (Auto) 0.0, Basophils (%) (Auto) 0.6, Neutrophils # (Auto) 11.5H, Lymphocytes # (Auto) 0.5L, Monocytes # (Auto) 2.1H, Eosinophils # (Auto) 0.0, Basophils # (Auto) 0.1, Nucleated Red Blood Cells % (auto) 0.0, Anion Gap 11, Glomerular Filtration Rate > 60.0, Blood Urea Nitrogen 11, Creatinine 0.57, Sodium Level 125L, Potassium Level 3.4L, Chloride Level 84L, Carbon Dioxide Level 30, Calcium Level 9.3, Total Creatine Kinase 19L, Creatine Kinase MB < 1.0, Creatine Kinase MB Relative Index 5.26H, Troponin I < 0.02 10/23/18 17:35: CBC/BMP Laboratory Tests 10/23/18 12:40 Red Blood Count 4.15, Mean Corpuscular Volume 97.3 H, Mean Corpuscular Hemoglobin 34.0 H, Mean Corpuscular Hemoglobin Concent 34.9, Red Cell Distribution Width 12.2, Neutrophils (%) (Auto) 81.0 H, Lymphocytes (%) (Auto) 3.2 L, Monocytes (%) (Auto) 14.6 H, Eosinophils (%) (Auto) 0.0, Basophils (%) (Auto) 0.6, Neutrophils # (Auto) 11.5 H, Lymphocytes # (Auto) 0.5 L, Monocytes # (Auto) 2.1 H, Eosinophils # (Auto) 0.0, Basophils # (Auto) 0.1, Calcium Level 9.3, Total Creatine Kinase 19 L Microbiology Microbiology 10/23/18 Blood Culture, Received Pending 10/23/18 Blood Culture, Received Pending Assessment/Plan Community-acquired pneumonia: -X-ray showed patchy opacities in each lung c/f multi lobar pneumonia. -Continue doxy for CAP coverage -supplemental oxygen -f/u sputum culture -f/u blood culture -f/u respiratory PCR -f/u urine strep and legionella COPD Exacerbation -Patient has a chart history of COPD with an extensive smoking history -pred 40 mg IV for 5 days -Duonebs Q6H scheduled -Albuterol Q4H PRN for wheezing Alcohol withdrawal -Patient admits a history of heavy alcohol use. She reports that she drinks 5 glasses of wine every night and is requesting the "CIWA" by name because she does not like to withdraw -Symptom triggered serax 30 mg every 6 for agitation and signs of alcohol withdrawal -telemetry -thiamine -folate Tobacco abuse: >30+ year history of 1 pack-a-day smoking. -Nicotine patch -counseled about quitting smoking and the role it is playing in her pulmonary decline and the idea of continuing quitting aids outpatient to try to reduce and ultimately quit smoking. Spent 10 minutes discussing it. HTN: -continue home amlodipine -continue home metop 50 QHS as 25 BID lopressor DVT ppx: lovenox Diet: Regular Dispo: pending clinical immprovement Plan / VTE VTE Prophylaxis Ordered?: Yes IKE ARELLANO MD Oct 24, 2018 01:55
[2018-10-24] MEDS ORDERED: DOXYCYCLINE HYCLATE 100 MG in D5W MINI-BAG PLUS 100 ML IV SCH (03:00)
[2018-10-24] MEDS: IPRATROPIUM 0.5MG/ALBUTEROL 2.5MG INH SOL UD 3ML (DUONEB)(J7620) INH SCH ×3 (04:00→07:25)
[2018-10-24] MEDS: LEVOTHYROXINE 25MCG TABLET (0.025MG) PO SCH ×2 (04:50→21:26)
[2018-10-24] MEDS: ENOXAPARIN 40 MG/0.4 ML SYRINGE (J1650) SC SCH (04:50)
[2018-10-24] MEDS: amLODIPine 5 MG TAB PO SCH ×2 (04:51→21:26)
--- NOTE | 2018-10-24 04:55 | ECGEPIP ---
[facility] - ED Test Date: 2018-10-23 Pat Name: TRE BOYER Department: Room: - Gender: Female Police Aide: PMKeanu : 1950 Requested By: RASHAUN Cornelius Order Number: [id number] Reading MD: Ryan Smith Measurements Intervals [place] Rate: 89 P: GA: 0 QRS: 76 QRSD: 85 T: 69 QT: 379 QTc: 464 Interpretive Statements SINUS RHYTHM SEPTAL MYOCARDIAL INFARCTION, PROBABLY OLD NSTTW ABNORMALITIES SIMILAR TO 01/17/17 Electronically Signed on 10-24-2018 4:55:21 EDT by Ryan Smith
[2018-10-24] MEDS ORDERED: LOPERAMIDE 2 MG CAPLET PO PRN (05:15)
[2018-10-24] MEDS: SODIUM CHLORIDE 1 GM TAB PO SCH ×4 (06:16→21:30)
[2018-10-24 06:17] LABS: HEMATOCRIT 37.5 % (36.0-47.0); MEAN CORPUSCULAR HEMOGLOBIN 33.8 pg (27.0-33.0); MEAN CORPUSCULAR HGB CONC 34.7 g/dl (32.0-36.5); MEAN CORPUSCULAR VOLUME 97.4 fl (80.0-96.0); PLATELET COUNT, AUTOMATED 408 10^3/uL (150-450); RED BLOOD COUNT 3.85 10^6/uL (4.00-5.40); WHITE BLOOD COUNT 7.8 10^3/uL (4.0-10.0)
[2018-10-24 06:48] LABS: ALBUMIN 2.2 GM/DL (3.2-5.2); ALT/SGPT 18 U/L (12-78); BILIRUBIN,TOTAL 0.3 MG/DL (0.2-1.0); BLOOD UREA NITROGEN 13 MG/DL (7-18); CALCIUM LEVEL 9.2 MG/DL (8.8-10.2); CARBON DIOXIDE LEVEL 30 MEQ/L (21-32); CHLORIDE LEVEL 89 MEQ/L (98-107); CK-MB VALUE MASS < 1.0 NG/ML (<3.6); CPK CREATINE PHOSPHOKINASE 15 U/L (26-192); CREATININE FOR GFR 0.64 MG/DL (0.55-1.30); GLOMERULAR FILTRATION RATE > 60.0 (>39); GLUCOSE, FASTING 151 MG/DL (70-100); MAGNESIUM LEVEL 2.2 MG/DL (1.8-2.4); MB/CK RELATIVE INDEX 6.67 (< OR =4); POTASSIUM SERUM 3.5 MEQ/L (3.5-5.1); SODIUM LEVEL 128 MEQ/L (136-145); TOTAL PROTEIN 5.7 GM/DL (6.4-8.2)
[2018-10-24] MEDS: THIAMINE 100 MG TAB PO SCH ×2 (08:45→21:25)
[2018-10-24] MEDS: FOLIC ACID 1 MG TAB PO SCH (08:45)
[2018-10-24] MEDS: METOPROLOL TART 25 MG TABLET PO SCH ×2 (09:00→21:26)
[2018-10-24] MEDS ORDERED: predniSONE 20 MG TAB PO SCH (09:00)
[2018-10-24] MEDS ORDERED: LEVALBUTEROL 1.25 MG/0.5 ML CONCENTRATE NEB INH PRN (09:45)
[2018-10-24] MEDS ORDERED: LEVALBUTEROL 1.25 MG/0.5 ML CONCENTRATE NEB NEB ONE (10:00)
[2018-10-24] MEDS ORDERED: OMEPRAZOLE 20 MG CAP PO ONE (10:00)
[2018-10-24] MEDS ORDERED: methylPREDNISolone INJ 125 MG/2 ML VIAL (J2930) IV ONE (10:00)
[2018-10-24 10:43] LABS: NT-PRO BNP 1214 PG/ML (<125)
[2018-10-24] MEDS ORDERED: NICOTINE POLACRILEX 2 MG GUM PO PRN (11:00)
[2018-10-24] MEDS: NICOTINE 14 MG/24 HR TRANSDERMAL TD SCH (11:19)
[2018-10-24] MEDS: MOXIFLOXACIN HCL 400 MG in IV 1 EA IV SCH (11:36)
--- NOTE | 2018-10-24 13:10 | IPN ---
DATE OF SERVICE: 10/24/2018 SUBJECTIVE: The patient still complains of some shortness of breath, significantly improved from yesterday. She continues to have a cough without fever or chills, productive of some thick sputum, but no chest pain, pressure, or tightness. Requesting a Medical Orders for Life-Sustaining Treatment (MOLST) form to be filled out for DO NOT RESUSCITATE, DO NOT INTUBATE, no cardiopulmonary resuscitation (CPR), no intubation, as well as a nicotine patch for history of 1-1/2 packs of cigarettes per day. Afebrile. OBJECTIVE: PHYSICAL EXAMINATION: Vital signs: Temperature 97.1, pulse 83, respiratory rate 18, blood pressure 117/64, 95% on 3 liters nasal cannula. Generally, the patient is awake, alert, oriented times three. Significant erythematous silvery plaque noted on the face and nasal labial folds. No jugular venous distention (JVD), thyromegaly, or lymphadenopathy. No carotid bruits. Lungs are diminished with expiratory wheezing bilaterally. Heart: S1, S2, sinus rhythm. Abdomen: Is soft, nontender, nondistended. Extremities: No cyanosis or clubbing. HOSPITAL MEDICATIONS: - vitamin D- Prilosec- Theragran- chlorthalidone- Solu-Medrol- Xopenex- moxifloxacin- NicoDerm patch- Nicorette gum- Xopenex as needed every hour- metoprolol 25 mg twice a day- Imodium as needed- Lovenox- Norvasc- levothyroxine- Ativan- thiamine- folic acid LABORATORY DATA: White count 7.8, hemoglobin 13, hematocrit 37, platelet count 408. Sodium 128, potassium 3.5, chloride 89, bicarbonate 30, BUN 13, creatinine 0.64, glucose 151, calcium 9.2, magnesium 2.2, AST 17, ALT 18, alkaline phosphatase 191, total CK 15, MB fraction less than 1, relative index 6.67, troponin less than 0.02, BNP 1214, albumin is 2.2, procalcitonin is pending. 10/24/2018 respiratory panel, sputum cultures are pending. Two sets of blood cultures on 10/23/2018 are pending. Chest x-ray: Mild patchy infiltrates or fibroatelectasis. Heart is normal size. Degenerative changes of the spine. ASSESSMENT AND PLAN: A 68-year-old female with history of chronic obstructive pulmonary disease (COPD), 30 pack years of smoking, dyslipidemia, hiatal hernia, and heavy alcohol use, admitted for community-acquired pneumonia, status post doxycycline, currently on Avelox for 7 days, continued on oxygen. Sputum and respiratory panel are still pending. Urine Streptococcus and urine Legionella are still pending. CURRENT ISSUES: Are as follows: 1. Community-acquired pneumonia. Currently on Avelox. Awaiting sputum culture results. 2. Acute hypoxic respiratory failure secondary to pneumonia and chronic obstructive pulmonary disease exacerbation. Titrate oxygen to 88% to 92%. The patient was admitted with 83% O2 saturation on room air. Continue treatment for pneumonia with Avelox, as well as nebulizer treatments with every 4 hours Xopenex and as needed every 1 hour, as well as intravenous (IV) Solu-Medrol. 3. Hypothyroidism. Continue on Synthroid. 4. Hypertension. Continue on Norvasc and atenolol, as well as chlorthalidone. 5. Gastrointestinal (GI) prophylaxis with Prilosec. 6. Chronic alcohol abuse, on Clinical [place] Withdrawal Assessment (CIWA) protocol. On thiamine and folic acid and Ativan per protocol. 7. Deep venous thrombosis (DVT) prophylaxis. On Lovenox subcutaneously. MTDD
[2018-10-24] MEDS ORDERED: OXAZEPAM 10 MG CAP PO ONE (14:30)
[2018-10-24] MEDS: methylPREDNISolone INJ 125 MG/2 ML VIAL (J2930) IV SCH ×2 (15:05→21:25)
[2018-10-24] MEDS: LEVALBUTEROL 1.25 MG/0.5 ML CONCENTRATE NEB INH SCH ×3 (15:37→23:09)
[2018-10-24] MEDS: CHLORTHALIDONE 25 MG TAB PO SCH (21:00)
[2018-10-24] MEDS: MULTIVITAMINS/MINERALS THERAP 1 TAB PO SCH (21:25)
[2018-10-24] MEDS: OXAZEPAM 10 MG CAP PO PRN (21:31)
[2018-10-25] MEDS: LEVALBUTEROL 1.25 MG/0.5 ML CONCENTRATE NEB INH SCH ×5 (03:13→19:37)
[2018-10-25] MEDS: methylPREDNISolone INJ 125 MG/2 ML VIAL (J2930) IV SCH ×4 (03:32→21:02)
[2018-10-25 06:00] VITALS: BP 122/58
[2018-10-25 08:07] LABS: BASO % 0.2 % (0.0-1.0); HEMATOCRIT 35.6 % (36.0-47.0); LYMPH # 0.5 10^3/uL (1.5-5.0); LYMPH % 4.3 % (24.0-44.0); MEAN CORPUSCULAR HEMOGLOBIN 33.1 pg (27.0-33.0); MEAN CORPUSCULAR HGB CONC 33.7 g/dl (32.0-36.5); MEAN CORPUSCULAR VOLUME 98.1 fl (80.0-96.0); MONO # 0.6 10^3/uL (0.0-0.8); NEUTROPHILS # 9.4 10^3/uL (1.5-8.5); NEUTROPHILS % 88.2 % (36.0-66.0); PLATELET COUNT, AUTOMATED 435 10^3/uL (150-450); RED BLOOD COUNT 3.63 10^6/uL (4.00-5.40); WHITE BLOOD COUNT 10.7 10^3/uL (4.0-10.0)
[2018-10-25 08:16] LABS: BLOOD UREA NITROGEN 17 MG/DL (7-18); CALCIUM LEVEL 9.2 MG/DL (8.8-10.2); CARBON DIOXIDE LEVEL 30 MEQ/L (21-32); CHLORIDE LEVEL 96 MEQ/L (98-107); CREATININE FOR GFR 0.72 MG/DL (0.55-1.30); GLOMERULAR FILTRATION RATE > 60.0 (>39); GLUCOSE, FASTING 226 MG/DL (70-100); POTASSIUM SERUM 3.3 MEQ/L (3.5-5.1); SODIUM LEVEL 133 MEQ/L (136-145)
[2018-10-25] MEDS: FOLIC ACID 1 MG TAB PO SCH (09:58)
[2018-10-25] MEDS: METOPROLOL TART 25 MG TABLET PO SCH ×2 (09:59→21:03)
[2018-10-25] MEDS: OMEPRAZOLE 20 MG CAP PO SCH (10:00)
[2018-10-25] MEDS: SODIUM CHLORIDE 1 GM TAB PO SCH ×3 (10:00→21:02)
[2018-10-25] MEDS: THIAMINE 100 MG TAB PO SCH ×2 (10:01→21:03)
[2018-10-25] MEDS: NICOTINE 14 MG/24 HR TRANSDERMAL TD SCH (10:02)
--- NOTE | 2018-10-25 11:18 | IPN ---
DATE OF SERVICE: 10/25/2018 The patient still complains of dyspnea on exertion walking bedroom to bathroom. Still with difficulty with exertion and a cough which is productive of white sputum. Diminished wheezing. No fever or chills. OBJECTIVE/PHYSICAL EXAMINATION: Vital Signs: Temperature 97, pulse 78, respiratory rate 17, blood pressure 113/56, 99% on 3 liters nasal cannula. Generally, the patient is awake, alert and oriented to person and place. Mild respiratory distress. Use of respiratory accessory muscles. No tripod positioning. The patient does have 5-6 word conversation dyspnea. No nasal flaring. No tracheal deviation. Lungs diminished. Bilateral expiratory wheezing. Prolonged expiration. No pursing of the lips. Heart: S1 and S2. Episodes of sinus tachycardia. No murmurs, rubs or gallops. Abdomen: Soft. Nontender. Nondistended. Extremities: No cyanosis, clubbing or pitting edema. Neurologic: The patient does not have any asterixis. No pronator drift. Face is symmetric. MEDICATIONS: - vitamin D- Prilosec- multivitamin- chlorthalidone- Solu-Medrol- Xopenex- Serax- Avelox- nicotine patch- metoprolol- Imodium- Lovenox- Norvasc- levothyroxine- acetaminophen- Ativan- thiamine- folic acid CHEST X-RAY: 10/23/2018 - Mild patchy infiltrate versus fibroatelectasis bilateral lung bases. MICROBIOLOGY: Human Rhinovirus, Enterovirus, sputum culture pending and two sets of blood cultures pending. ASSESSMENT AND PLAN: 68-year-old female with long standing history of alcohol and tobacco abuse, 30-pack year history of smoking, chronic obstructive pulmonary disease (COPD) not on oxygen, dyslipidemia, and hiatal hernia admitted for community acquired pneumonia status post doxycycline, currently on Avelox, and currently having severe acute hypoxia with an 83% oxygen saturation on room air. 1. Community acquired pneumonia. Awaiting sputum culture. Continue on Avelox. 2. Acute hypoxic respiratory failure secondary to most likely gram negative pneumonia and COPD exacerbation. Still requiring supplemental oxygen to keep O2 sat 88-92%. IV Solu-Medrol and nebulizer treatments. 3. Hypothyroidism. On Synthroid. 4. Hypertension. Norvasc, atenolol and chlorthalidone. 5. Gastrointestinal prophylaxis with Prilosec. 6. Chronic alcohol abuse. [facility] protocol, thiamine, folic acid, Ativan and Serax as needed. 7. Deep vein thrombosis prophylaxis. Lovenox. 8. Await physical therapy (PT) clearance prior to discharge home and improvement in clinical status, 3-4 days. MTDD
[2018-10-25] MEDS: MOXIFLOXACIN HCL 400 MG in IV 1 EA IV SCH (12:52)
[2018-10-25 14:00] VITALS: BP_SYST 117; BP_SYST 118; BP_DIAS 57; BP_DIAS 58
[2018-10-25] MEDS: OXAZEPAM 10 MG CAP PO PRN (16:35)
[2018-10-25] MEDS: CHLORTHALIDONE 25 MG TAB PO SCH (21:00)
[2018-10-25] MEDS: LEVOTHYROXINE 25MCG TABLET (0.025MG) PO SCH (21:02)
[2018-10-25] MEDS: MULTIVITAMINS/MINERALS THERAP 1 TAB PO SCH (21:03)
[2018-10-25] MEDS: amLODIPine 5 MG TAB PO SCH (21:03)
[2018-10-25] MEDS: ENOXAPARIN 40 MG/0.4 ML SYRINGE (J1650) SC SCH (21:10)
[2018-10-25 22:00] VITALS: BP 147/67
[2018-10-26] MEDS: LEVALBUTEROL 1.25 MG/0.5 ML CONCENTRATE NEB INH SCH ×7 (00:21→23:57)
[2018-10-26] MEDS: OXAZEPAM 10 MG CAP PO PRN ×3 (00:29→21:23)
[2018-10-26] MEDS: methylPREDNISolone INJ 125 MG/2 ML VIAL (J2930) IV SCH ×2 (03:54→09:12)
[2018-10-26 06:00] VITALS: BP 124/61
[2018-10-26 07:57] VITALS: O2SAT 93
[2018-10-26] MEDS: OMEPRAZOLE 20 MG CAP PO SCH (09:12)
[2018-10-26] MEDS: FOLIC ACID 1 MG TAB PO SCH (09:12)
[2018-10-26] MEDS: SODIUM CHLORIDE 1 GM TAB PO SCH ×3 (09:12→21:22)
[2018-10-26] MEDS: NICOTINE 14 MG/24 HR TRANSDERMAL TD SCH (09:12)
[2018-10-26] MEDS: METOPROLOL TART 25 MG TABLET PO SCH ×2 (09:16→21:23)
[2018-10-26 10:57] LABS: BLOOD UREA NITROGEN 18 MG/DL (7-18); CALCIUM LEVEL 8.9 MG/DL (8.8-10.2); CARBON DIOXIDE LEVEL 25 MEQ/L (21-32); CHLORIDE LEVEL 101 MEQ/L (98-107); GLOMERULAR FILTRATION RATE > 60.0 (>39); GLUCOSE, FASTING 365 MG/DL (70-100); SODIUM LEVEL 137 MEQ/L (136-145)
[2018-10-26 11:32] VITALS: O2SAT 99
[2018-10-26] MEDS: MOXIFLOXACIN 400 MG TAB PO SCH (13:34)
[2018-10-26 14:00] VITALS: BP 138/71
[2018-10-26] MEDS ORDERED: POTASSIUM CHLORIDE 10 MEQ SR TABLET PO ONE (16:15)
--- NOTE | 2018-10-26 17:02 | IPN ---
DATE OF SERVICE: 10/26/2018 SUBJECTIVE: Patient says that she ambulated well without any dyspnea on exertion. No chest pain. Still with productive cough of white yellow sputum. Afebrile with no chills overnight. OBJECTIVE/PHYSICAL EXAMINATION: Vital Signs: Temperature 97, pulse 89, respiratory rate 18, blood pressure 124/61, 94% on 0.5 liters nasal cannula, 99% on room air. Generally, the patient appears cachectic with erythematous skin changes on bilateral cheeks and mandible, and no use of respiratory accessory muscles. No cervical lymphadenopathy or thyromegaly. Lungs diminished, prolonged expiration, but clear to auscultation with end expiratory wheezing at times. Heart: S1 and S2, sinus rhythm. No murmurs, rubs or gallops. Abdomen is soft. Nontender. Nondistended. Positive bowel sounds times four quadrants. No rebound, guarding or hepatosplenomegaly. Extremities: No cyanosis, clubbing or pitting edema. The patient does not have any asterixis. No pronator drift. Face is symmetric. HOSPITAL MEDICATIONS: - vitamin D - prednisone - Avelox - Prilosec - multivitamin - chlorthalidone - Xopenex - Serax - nicotine patch - metoprolol - Imodium - Lovenox - Norvasc - levothyroxine - folic acid LABORATORY DATA: White count 10, hemoglobin 12, hematocrit 35, platelet count 435. Sodium 137, potassium 3, chloride 101, bicarb 20. Chest x-ray 10/23/2018 mild patchy infiltrate versus fibroatelectasis bilateral lung bases. 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 ACTIVE ISSUES: 1. Community acquired pneumonia. Currently on Avelox. 2. Acute hypoxic respiratory failure secondary to most likely gram negative pneumonia, community acquired and COPD exacerbation, resolved. Currently not requiring oxygen, saturating quite well. 3. COPD exacerbation status post IV Solu-Medrol. Currently on prednisone taper and nebulizer treatments and antibiotics. 4. Hypothyroidism, on Synthroid. 5. Hypertension. Norvasc, atenolol and chlorthalidone. 6. Gastrointestinal prophylaxis with Prilosec. 7. Chronic alcohol abuse. [facility] protocol, thiamine, folic acid, Ativan and Serax as needed. 8. Tobacco abuse. Tobacco cessation counseling and nicotine patch have been provided. 9. Deep vein thrombosis prophylaxis with Lovenox. DISPOSITION: Awaiting physical therapy (PT) clearance prior to discharge home. MTDD
[2018-10-26] MEDS: ACETAMINOPHEN TAB 650MG DOSE (2X325MG) PO PRN (17:08)
[2018-10-26] MEDS: CHLORTHALIDONE 25 MG TAB PO SCH (20:57)
[2018-10-26] MEDS ORDERED: predniSONE 20 MG TAB PO SCH (21:00)
[2018-10-26] MEDS: LEVOTHYROXINE 25MCG TABLET (0.025MG) PO SCH (21:22)
[2018-10-26] MEDS: MULTIVITAMINS/MINERALS THERAP 1 TAB PO SCH (21:22)
[2018-10-26] MEDS: amLODIPine 5 MG TAB PO SCH (21:23)
[2018-10-26] MEDS: ENOXAPARIN 40 MG/0.4 ML SYRINGE (J1650) SC SCH (21:23)
[2018-10-26 22:00] VITALS: BP 128/57
[2018-10-27] MEDS: OXAZEPAM 10 MG CAP PO PRN ×2 (03:36→15:50)
[2018-10-27] MEDS: LEVALBUTEROL 1.25 MG/0.5 ML CONCENTRATE NEB INH SCH ×6 (03:39→23:50)
[2018-10-27] MEDS: MOXIFLOXACIN 400 MG TAB PO SCH (05:13)
[2018-10-27 06:00] VITALS: BP 129/58
[2018-10-27 06:44] LABS: BLOOD UREA NITROGEN 18 MG/DL (7-18); CALCIUM LEVEL 8.6 MG/DL (8.8-10.2); CARBON DIOXIDE LEVEL 30 MEQ/L (21-32); CHLORIDE LEVEL 103 MEQ/L (98-107); CREATININE FOR GFR 0.59 MG/DL (0.55-1.30); GLOMERULAR FILTRATION RATE > 60.0 (>39); GLUCOSE, FASTING 179 MG/DL (70-100); MAGNESIUM LEVEL 1.9 MG/DL (1.8-2.4); POTASSIUM SERUM 3.2 MEQ/L (3.5-5.1); SODIUM LEVEL 141 MEQ/L (136-145)
[2018-10-27] MEDS ORDERED: LORazepam 0.5 MG TAB PO STA (09:51)
[2018-10-27] MEDS ORDERED: FUROSEMIDE 20 MG/2 ML VIAL (J1940) IV ONE ×2 (10:00→19:00)
[2018-10-27] MEDS ORDERED: methylPREDNISolone INJ 125 MG/2 ML VIAL (J2930) IV ONE (10:00)
[2018-10-27] MEDS: NICOTINE 14 MG/24 HR TRANSDERMAL TD SCH (10:18)
[2018-10-27] MEDS: POTASSIUM CHLORIDE 10 MEQ SR TABLET PO SCH (10:19)
[2018-10-27] MEDS: FOLIC ACID 1 MG TAB PO SCH (10:19)
[2018-10-27] MEDS: SODIUM CHLORIDE 1 GM TAB PO SCH (10:19)
[2018-10-27] MEDS: OMEPRAZOLE 20 MG CAP PO SCH (10:20)
[2018-10-27] MEDS: METOPROLOL TART 25 MG TABLET PO SCH ×2 (10:22→21:53)
[2018-10-27 11:05] VITALS: O2SAT 99
[2018-10-27 13:24] LABS: NT-PRO BNP 5135 PG/ML (<125)
[2018-10-27 14:00] VITALS: BP 142/69
--- NOTE | 2018-10-27 14:28 | IPN ---
DATE OF SERVICE: 10/27/2018 SUBJECTIVE: Despite the patient being eager to go home, we have noticed that she is much more labored with her breathing after we transitioned to oral prednisone with increasing dyspnea on exertion. Still with a cough which is thick, but less than on admission. She has not chest pain or pressure. She complains of a little bit of weakness. She has found some relief with as needed Serax and Ativan for her withdrawal symptoms. OBJECTIVE/PHYSICAL EXAMINATION: Vital Signs: Temperature 98, pulse 77, respiratory rate 18, blood pressure 129/58, 94% on room air. Generally, the patient is cachectic appearing with some muscle wasting. She has an erythematous face. No signs of cellulitis. Appears flushed with dry skin. No jugular venous distention. There is no thyromegaly. Lungs diminished breath sounds, bilateral wheezing, prolonged expiration. Pursing of the lips. Conversational dyspnea, about four to five words. Heart: S1 and S2, sinus rhythm. Abdomen is soft. Nontender. Nondistended. Positive bowel sounds times four quadrants. No rebound or guarding. Extremities: No cyanosis, clubbing or any pitting edema. HOSPITAL MEDICATIONS: - vitamin D - Solu-Medrol - potassium - Avelox - Prilosec - multivitamin - chlorthalidone - Xopenex - Serax - nicotine patch - metoprolol - loperamide - Lovenox - amlodipine - Synthroid - Tylenol - folic acid 10/23/2018 chest x-ray with bilateral fibroatelectasis and mild patchy infiltrates. ASSESSMENT AND PLAN: This is a 68-year-old female, active smoker and alcohol abuse, chronic obstructive pulmonary disease, with 30 pack year history of smoking, not on home oxygen, dyslipidemia, and hiatal hernia admitted for hypoxia and respiratory distress and found to have pneumonia initially on doxycycline, currently on Avelox, and COPD exacerbation. ACTIVE ISSUES: 1. Pneumonia. s/p Avelox. sputum cx: h. influenza, Strep pneumo levaquin. 2. Acute hypoxic respiratory failure secondary to probable gram negative pneumonia,rhinovirus community acquired and COPD exacerbation. Not on oxygen. Currently requiring transitioning back to IV Solu-Medrol. 3. COPD exacerbation. She was on IV Solu-Medrol, transitioned to prednisone with worsening respiratory distress, and she is currently placed back on IV Solu-Medrol, nebulizer treatments and Avelox. She is not requiring any supplemental oxygen at this time. 4. Hypothyroidism, on Synthroid. 5. Hypertension. On Norvasc, metoprolol and chlorthalidone. 6. Fluid overload. The patient is resumed on her home dose of chlorthalidone and did receive one dose of Lasix today. 7. Chronic alcohol abuse. The patient is on thiamine, folic acid, Ativan and Serax. She is requesting an antianxiety medication and was given one dose of 0.5 mg of Ativan. 8. GI prophylaxis with Prilosec. 9. Tobacco abuse. Tobacco cessation counseling has been provided, nicotine patch has been given. 10. Deep vein thrombosis prophylaxis with Lovenox. DISPOSITION: The patient needs one to two more sessions with physical therapy prior to discharge home. Will need to make sure her breathing is much improved prior to hospital discharge. MTDD
[2018-10-27] MEDS ORDERED: LEVA750T7 PO (15:41)
[2018-10-27] MEDS ORDERED: NICO14PA TD (15:41)
[2018-10-27] MEDS ORDERED: PRED10TA2 PO (15:41)
[2018-10-27] MEDS ORDERED: LevoFLOXacin IV 750 MG in IV 1 EA IV ONE (16:00)
[2018-10-27] MEDS: methylPREDNISolone INJ 125 MG/2 ML VIAL (J2930) IV SCH ×2 (16:51→21:55)
[2018-10-27] MEDS: CHLORTHALIDONE 25 MG TAB PO SCH (21:00)
[2018-10-27 21:51] VITALS: BP 159/84
[2018-10-27] MEDS: LEVOTHYROXINE 25MCG TABLET (0.025MG) PO SCH (21:53)
[2018-10-27] MEDS: MULTIVITAMINS/MINERALS THERAP 1 TAB PO SCH (21:53)
[2018-10-27] MEDS: amLODIPine 5 MG TAB PO SCH (21:53)
[2018-10-27] MEDS: ENOXAPARIN 40 MG/0.4 ML SYRINGE (J1650) SC SCH (21:54)
[2018-10-27 22:00] VITALS: BP 148/72
[2018-10-27] MEDS: ACETAMINOPHEN TAB 650MG DOSE (2X325MG) PO PRN (22:34)
[2018-10-28] MEDS: LEVALBUTEROL 1.25 MG/0.5 ML CONCENTRATE NEB INH SCH ×6 (04:14→23:01)
[2018-10-28] MEDS: methylPREDNISolone INJ 125 MG/2 ML VIAL (J2930) IV SCH ×2 (04:35→06:07)
[2018-10-28 06:00] VITALS: BP 140/84
[2018-10-28] MEDS: LevoFLOXacin 750 MG TABLET PO SCH (06:07)
[2018-10-28 06:47] LABS: HEMATOCRIT 40.9 % (36.0-47.0); HEMOGLOBIN 13.5 g/dl (12.0-15.5); MEAN CORPUSCULAR HEMOGLOBIN 32.3 pg (27.0-33.0); MEAN CORPUSCULAR VOLUME 97.8 fl (80.0-96.0); PLATELET COUNT, AUTOMATED 533 10^3/uL (150-450); RED BLOOD COUNT 4.18 10^6/uL (4.00-5.40); WHITE BLOOD COUNT 13.6 10^3/uL (4.0-10.0)
[2018-10-28 07:07] LABS: BLOOD UREA NITROGEN 15 MG/DL (7-18); CALCIUM LEVEL 8.7 MG/DL (8.8-10.2); CARBON DIOXIDE LEVEL 32 MEQ/L (21-32); CHLORIDE LEVEL 98 MEQ/L (98-107); CREATININE FOR GFR 0.57 MG/DL (0.55-1.30); GLOMERULAR FILTRATION RATE > 60.0 (>39); GLUCOSE, FASTING 119 MG/DL (70-100); MAGNESIUM LEVEL 1.8 MG/DL (1.8-2.4); POTASSIUM SERUM 3.6 MEQ/L (3.5-5.1); SODIUM LEVEL 138 MEQ/L (136-145)
[2018-10-28] MEDS ORDERED: OXAZEPAM 10 MG CAP PO ONE (08:30)
[2018-10-28] MEDS: NICOTINE 14 MG/24 HR TRANSDERMAL TD SCH (08:39)
[2018-10-28] MEDS: POTASSIUM CHLORIDE 10 MEQ SR TABLET PO SCH (08:39)
[2018-10-28] MEDS: OMEPRAZOLE 20 MG CAP PO SCH (08:39)
[2018-10-28] MEDS: FOLIC ACID 1 MG TAB PO SCH (08:39)
[2018-10-28] MEDS: METOPROLOL TART 25 MG TABLET PO SCH ×2 (08:40→21:51)
[2018-10-28] MEDS: OXAZEPAM 10 MG CAP PO PRN (08:41)
[2018-10-28] MEDS: ALPRAZolam 0.25 MG TAB PO SCH ×3 (09:16→21:51)
[2018-10-28] MEDS: TIOTROPIUM INHALER/CAPSULE (SPIRIVA) INH SCH (11:10)
[2018-10-28 14:00] VITALS: BP 138/78
--- NOTE | 2018-10-28 15:45 | ECGEPIP ---
[facility] Test Date: 2018-10-28 Pat Name: TRE BOYER Department: Room: V2536-17 Gender: Female Return Checker: TEODORA : 1950 Requested By: ATIF Perez Order Number: [id number] Reading MD: Kenneth Rahman Measurements Intervals [place] Rate: 65 P: 93 MT: 135 QRS: 45 QRSD: 82 T: 42 QT: 438 QTc: 457 Interpretive Statements SINUS RHYTHM Nonspecific ST-T wave abnormalities Similar to tracing done 10-23-18 Electronically Signed on 10-28-2018 15:45:29 EDT by Kenneth Rahman
--- NOTE | 2018-10-28 17:25 | IPNPDOC ---
Date Seen The patient was seen on 10/28/18. Progress Note SUBJECTIVE: anxious to go home. "I drink you know. I need something." breathing is improved, but lives alone and had to be changed back to iv solumedrol yesterday due to worsening wheezing. no c/o chest pain, pressure. still with slight CALDERÓN, but no dizziness, lightheadedness. Tearful that "I can't believe this happened to me. I walk two miles everyday." OBJECTIVE/PHYSICAL EXAMINATION: Vital Signs:pls see below Generally, the patient is cachectic appearing with some muscle wasting. sunburnt erythematous cheeks and jaw line without induration or fluctuance. appears her stated age. no use of respiratory acc muscles. no tripod positioning. HEENT:No jugular venous distention. There is no thyromegaly. Lungs clear. AEBE. no wheezing Heart: S1 and S2, irregular. no murmurs. Abdomen is soft. Nontender. Nondistended. Positive bowel sounds times four quadrants. No rebound or guarding.no HSM or abdominal bruits. Extremities: No cyanosis, clubbing or any pitting edema. HOSPITAL MEDICATIONS: - vitamin D- Solu-Medrol- potassium- levaquin s/p Avelox - Prilosec- multivitamin- chlorthalidone- Xopenex- Serax- nicotine patch- metoprolol- loperamide- Lovenox- amlodipine- Synthroid- Tylenol- folic acid 10/23/2018 chest x-ray with bilateral fibroatelectasis and mild patchy infiltrates. ASSESSMENT AND PLAN: This is a 68-year-old female, active smoker and alcohol abuse, chronic obstructive pulmonary disease, with 30 pack year history of smoking, not on home oxygen, dyslipidemia, and hiatal hernia admitted for hypoxia and respiratory distress and found to have pneumonia initially on doxycycline, currently on Avelox, and COPD exacerbation. ACTIVE ISSUES: Pneumonia. s/p Avelox. sputum cx: h. influenza, Strep pneumo levaquin. Acute hypoxic respiratory failure,resolved secondary to gram negative pneumonia,rhinovirus community acquired and COPD exacerbation. Not on oxygen at home . will re-attempt transitioning from iv to po steroids. COPD exacerbation. abx. taper to po prednisone. needs outpt pulm referral for PFTs and closer monitoring Hypothyroidism, on Synthroid. Hypertension. On Norvasc, metoprolol and chlorthalidone. Fluid overload. The patient is resumed on her home dose of chlorthalidone and did receive one dose of Lasix today. Chronic alcohol abuse. The patient is on thiamine, folic acid, Ativan and Serax. She is requesting an antianxiety medication and was given one dose of 0.5 mg of Ativan. GI prophylaxis with Prilosec. Tobacco abuse. Tobacco cessation counseling has been provided, nicotine patch has been given. Deep vein thrombosis prophylaxis with Lovenox. DISPOSITION: 2-3 days. Will need to make sure her breathing is much improved prior to hospital discharge. VS, I&O, 24H, Fishbone Vital Signs/I&O Vital Signs Date Time Temp Pulse Resp B/P (MAP) Pulse Ox O2 Delivery O2 Flow Rate FiO2 10/28/18 08:40 113 141/80 10/28/18 06:00 97.3 16 94 10/27/18 22:00 3.0 10/27/18 11:05 Room Air I&O- Last 24 Hours up to 6 AM 10/28/18 06:00 Intake Total 840 ml Output Total 400 ml Balance 440 ml Laboratory Data 24H LABS Laboratory Tests 2 10/28/18 06:19: Nucleated Red Blood Cells % (auto) 0.0, Anion Gap 8, Glomerular Filtration Rate > 60.0, Blood Urea Nitrogen 15, Creatinine 0.57, Sodium Level 138, Potassium Level 3.6, Chloride Level 98, Carbon Dioxide Level 32, Calcium Level 8.7L, Magnesium Level 1.8 CBC/BMP Laboratory Tests 10/28/18 06:19 Red Blood Count 4.18, Mean Corpuscular Volume 97.8 H, Mean Corpuscular Hemoglobin 32.3, Mean Corpuscular Hemoglobin Concent 33.0, Red Cell Distribution Width 12.4, Calcium Level 8.7 L Microbiology Microbiology 10/23/18 Blood Culture - Final, Complete NO GROWTH AFTER 5 DAYS 10/23/18 Blood Culture - Final, Complete NO GROWTH AFTER 5 DAYS 10/24/18 Respiratory Virus Panel (PCR) (DEMAR) - Final, Complete Human Rhinovirus/Enterovirus 10/24/18 Gram Stain - Final, Complete 10/24/18 Sputum Culture - Final, Complete Haemophilus Influenzae Escherichia Coli Raoultella Ornithinolytica Streptococcus Pneumoniae ATIF DUVAL MD Oct 28, 2018 17:25
[2018-10-28] MEDS ORDERED: methylPREDNISolone INJ 125 MG/2 ML VIAL (J2930) IV SCH (18:00)
[2018-10-28] MEDS: CHLORTHALIDONE 25 MG TAB PO SCH (21:00)
[2018-10-28 21:45] VITALS: BP 156/70
[2018-10-28] MEDS: MULTIVITAMINS/MINERALS THERAP 1 TAB PO SCH (21:50)
[2018-10-28] MEDS: predniSONE 20 MG TAB PO SCH (21:50)
[2018-10-28] MEDS: ENOXAPARIN 40 MG/0.4 ML SYRINGE (J1650) SC SCH (21:50)
[2018-10-28] MEDS: LEVOTHYROXINE 25MCG TABLET (0.025MG) PO SCH (21:51)
[2018-10-28] MEDS: amLODIPine 5 MG TAB PO SCH (21:52)
[2018-10-28 22:00] VITALS: BP 136/75
[2018-10-29] MEDS: OXAZEPAM 10 MG CAP PO PRN (02:08)
[2018-10-29] MEDS: LEVALBUTEROL 1.25 MG/0.5 ML CONCENTRATE NEB INH SCH ×5 (04:00→20:04)
[2018-10-29] MEDS: LevoFLOXacin 750 MG TABLET PO SCH (05:37)
[2018-10-29 06:00] VITALS: BP 150/72
[2018-10-29 06:29] LABS: HEMATOCRIT 37.7 % (36.0-47.0); HEMOGLOBIN 12.6 g/dl (12.0-15.5); MEAN CORPUSCULAR HEMOGLOBIN 33.7 pg (27.0-33.0); MEAN CORPUSCULAR HGB CONC 33.4 g/dl (32.0-36.5); MEAN CORPUSCULAR VOLUME 100.8 fl (80.0-96.0); PLATELET COUNT, AUTOMATED 443 10^3/uL (150-450); RED BLOOD COUNT 3.74 10^6/uL (4.00-5.40); WHITE BLOOD COUNT 16.1 10^3/uL (4.0-10.0)
[2018-10-29 07:01] LABS: BLOOD UREA NITROGEN 23 MG/DL (7-18); CALCIUM LEVEL 8.5 MG/DL (8.8-10.2); CARBON DIOXIDE LEVEL 29 MEQ/L (21-32); CHLORIDE LEVEL 105 MEQ/L (98-107); CPK CREATINE PHOSPHOKINASE 21 U/L (26-192); CREATININE FOR GFR 0.53 MG/DL (0.55-1.30); GLOMERULAR FILTRATION RATE > 60.0 (>39); GLUCOSE, FASTING 125 MG/DL (70-100); MB/CK RELATIVE INDEX 4.76 (< OR =4); NT-PRO BNP 2832 PG/ML (<125); POTASSIUM SERUM 4.3 MEQ/L (3.5-5.1); SODIUM LEVEL 140 MEQ/L (136-145); TROPONIN I < 0.02 NG/ML (< 0.10)
[2018-10-29] MEDS: TIOTROPIUM INHALER/CAPSULE (SPIRIVA) INH SCH (07:14)
[2018-10-29] MEDS: FOLIC ACID 1 MG TAB PO SCH (08:08)
[2018-10-29] MEDS: ALPRAZolam 0.25 MG TAB PO SCH ×4 (08:09→21:20)
[2018-10-29] MEDS: predniSONE 20 MG TAB PO SCH ×2 (08:09→21:19)
[2018-10-29] MEDS: POTASSIUM CHLORIDE 10 MEQ SR TABLET PO SCH (08:09)
[2018-10-29] MEDS: OMEPRAZOLE 20 MG CAP PO SCH (08:09)
[2018-10-29] MEDS: NICOTINE 14 MG/24 HR TRANSDERMAL TD SCH (08:10)
[2018-10-29] MEDS: METOPROLOL TART 25 MG TABLET PO SCH ×2 (08:10→21:21)
--- NOTE | 2018-10-29 09:32 | REP ---
CHEST, SINGLE VIEW: Single view of the chest is performed and compared to prior study of 10/23/2018. The previously noted bibasilar infiltrates have improved with some minimal residual atelectasis or infiltrate. I suspect tiny bilateral effusions. Heart is not enlarged. There is mild calcification of the thoracic aorta. There are degenerative changes of the spine. IMPRESSION: Improvement of bibasilar infiltrates with minimal residual atelectasis/infiltrate and tiny bilateral effusions. Electronically Signed by Amaury Recinos MD 10/29/2018 05:57 P
[2018-10-29] MEDS: NYSTATIN 500,000 U/5 ML SUSP UDC PO SCH ×3 (13:20→21:20)
[2018-10-29 14:00] VITALS: BP 138/81
--- NOTE | 2018-10-29 17:40 | IPNPDOC ---
Date Seen The patient was seen on 10/29/18. Progress Note SUBJECTIVE: still w macario, "but i know to take my time and take deep breaths." no hypoxia with ambulation, and not requiring oxygen. still w cough. c/o thrush and vaginal pruritus with white discharge. no c/o diarrhea despite antibiotics. breathing is better, but pt didn't sleep well. xanax is helpful , but no DT's. OBJECTIVE/PHYSICAL EXAMINATION: Vital Signs:pls see below Generally, the patient is cachectic appearing . no pursing of lips. appears her stated age. no use of respiratory acc muscles. no tripod positioning. HEENT:No jugular venous distention. There is no thyromegaly. Lungs clear. AEBE. no wheezing Heart: S1 and S2, irregular. no murmurs. Abdomen is soft. Nontender. Nondistended. Positive bowel sounds times four quadrants. No rebound or guarding.no HSM or abdominal bruits. Extremities: No cyanosis, clubbing or any pitting edema. HOSPITAL MEDICATIONS: - vitamin D-predisone potassium- levaquin s/p Avelox - Prilosec- multivitamin- chlorthalidone- Xopenex- Serax- nicotine patch- metoprolol- loperamide- Lovenox- amlodipine- Synthroid- Tylenol- folic acid 10/23/2018 chest x-ray with bilateral fibroatelectasis and mild patchy infiltrates. ASSESSMENT AND PLAN: This is a 68-year-old female, active smoker and alcohol abuse, chronic obstructive pulmonary disease, with 30 pack year history of smoking, not on home oxygen, dyslipidemia, and hiatal hernia admitted for hypoxia and respiratory distress and found to have pneumonia initially on doxycycline, currently on Avelox, and COPD exacerbation. ACTIVE ISSUES: gram negative pneumonia Pneumonia. s/p Avelox. sputum cx: h. influenza, Strep pneumo levaquin. Acute hypoxic respiratory failure,resolved secondary to gram negative pneumonia,rhinovirus community acquired and COPD exacerbation. Not on oxygen at home . stable on po steroids. rhinovirus and enterovirus respiratory infection contact precautions COPD exacerbation. abx. stable on po prednisone. needs outpt pulm referral for PFTs and closer monitoring Hypothyroidism, on Synthroid. Hypertension. On Norvasc, metoprolol and chlorthalidone. Fluid overload. The patient is resumed on her home dose of chlorthalidone and did receive one dose of Lasix today. Chronic alcohol abuse. The patient is on thiamine, folic acid, Ativan and Serax. She is requesting an antianxiety medication and was given one dose of 0.5 mg of Ativan. GI prophylaxis with Prilosec. Tobacco abuse. Tobacco cessation counseling has been provided, nicotine patch has been given. Deep vein thrombosis prophylaxis with Lovenox. DISPOSITION: await pt clearance. dc tuesday if stable. VS, I&O, 24H, Fishbone Vital Signs/I&O Vital Signs Date Time Temp Pulse Resp B/P (MAP) Pulse Ox O2 Delivery O2 Flow Rate FiO2 10/29/18 14:00 98.0 72 19 138/81 (100) 95 10/27/18 22:00 3.0 10/27/18 11:05 Room Air I&O- Last 24 Hours up to 6 AM 10/29/18 06:00 Intake Total 1240 ml Output Total 500 ml Balance 740 ml Laboratory Data 24H LABS Laboratory Tests 2 10/29/18 06:12: Nucleated Red Blood Cells % (auto) 0.0, Anion Gap 6L, Glomerular Filtration Rate > 60.0, Blood Urea Nitrogen 23#H, Creatinine 0.53L, Sodium Level 140, Potassium Level 4.3, Chloride Level 105, Carbon Dioxide Level 29, Calcium Level 8.5L, Total Creatine Kinase 21L, Creatine Kinase MB 1.0, Creatine Kinase MB Relative Index 4.76H, Troponin I < 0.02, MS-Byc-G-Type Natriuretic Peptide 2832H CBC/BMP Laboratory Tests 10/29/18 06:12 Red Blood Count 3.74 L, Mean Corpuscular Volume 100.8 H, Mean Corpuscular Hemoglobin 33.7 H, Mean Corpuscular Hemoglobin Concent 33.4, Red Cell Distribution Width 12.7, Calcium Level 8.5 L, Total Creatine Kinase 21 L Microbiology Microbiology 10/23/18 Blood Culture - Final, Complete NO GROWTH AFTER 5 DAYS 10/23/18 Blood Culture - Final, Complete NO GROWTH AFTER 5 DAYS 10/24/18 Respiratory Virus Panel (PCR) ([facility]MAR) - Final, Complete Human Rhinovirus/Enterovirus 10/24/18 Gram Stain - Final, Complete 10/24/18 Sputum Culture - Final, Complete Haemophilus Influenzae Escherichia Coli Raoultella Ornithinolytica Streptococcus Pneumoniae ATIF DUVAL MD Oct 29, 2018 17:40
[2018-10-29] MEDS: CHLORTHALIDONE 25 MG TAB PO SCH (21:00)
[2018-10-29] MEDS ORDERED: MICONAZOLE-7 VAGINAL 2% CREAM 47.7 GM PV SCH (21:00)
[2018-10-29] MEDS: MULTIVITAMINS/MINERALS THERAP 1 TAB PO SCH (21:19)
[2018-10-29] MEDS: LEVOTHYROXINE 25MCG TABLET (0.025MG) PO SCH (21:19)
[2018-10-29] MEDS: amLODIPine 5 MG TAB PO SCH (21:21)
[2018-10-29] MEDS: ENOXAPARIN 40 MG/0.4 ML SYRINGE (J1650) SC SCH (21:22)
[2018-10-29 22:00] VITALS: BP 141/65
[2018-10-30] MEDS: LEVALBUTEROL 1.25 MG/0.5 ML CONCENTRATE NEB INH SCH ×3 (00:50→11:28)
[2018-10-30] MEDS: OXAZEPAM 10 MG CAP PO PRN (01:05)
[2018-10-30 06:00] VITALS: BP 146/78
[2018-10-30] MEDS: LevoFLOXacin 750 MG TABLET PO SCH (06:23)
[2018-10-30 06:30] LABS: HEMATOCRIT 38.8 % (36.0-47.0); HEMOGLOBIN 12.6 g/dl (12.0-15.5); MEAN CORPUSCULAR HEMOGLOBIN 32.6 pg (27.0-33.0); MEAN CORPUSCULAR HGB CONC 32.5 g/dl (32.0-36.5); MEAN CORPUSCULAR VOLUME 100.5 fl (80.0-96.0); PLATELET COUNT, AUTOMATED 459 10^3/uL (150-450); RED BLOOD COUNT 3.86 10^6/uL (4.00-5.40); WHITE BLOOD COUNT 13.7 10^3/uL (4.0-10.0)
[2018-10-30 07:04] LABS: BLOOD UREA NITROGEN 27 MG/DL (7-18); CALCIUM LEVEL 8.7 MG/DL (8.8-10.2); CARBON DIOXIDE LEVEL 30 MEQ/L (21-32); CHLORIDE LEVEL 104 MEQ/L (98-107); CK-MB VALUE MASS 1.2 NG/ML (<3.6); CPK CREATINE PHOSPHOKINASE 33 U/L (26-192); CREATININE FOR GFR 0.61 MG/DL (0.55-1.30); GLOMERULAR FILTRATION RATE > 60.0 (>39); GLUCOSE, FASTING 116 MG/DL (70-100); MB/CK RELATIVE INDEX 3.64 (< OR =4); POTASSIUM SERUM 4.9 MEQ/L (3.5-5.1); SODIUM LEVEL 140 MEQ/L (136-145); TROPONIN I < 0.02 NG/ML (< 0.10)
[2018-10-30] MEDS ORDERED: MICO7CR PV (07:36)
[2018-10-30] MEDS ORDERED: NYST50SS PO (07:36)
[2018-10-30] MEDS: TIOTROPIUM INHALER/CAPSULE (SPIRIVA) INH SCH (08:12)
[2018-10-30] MEDS: predniSONE 20 MG TAB PO SCH (08:21)
[2018-10-30] MEDS: NYSTATIN 500,000 U/5 ML SUSP UDC PO SCH (08:21)
[2018-10-30] MEDS: NICOTINE 14 MG/24 HR TRANSDERMAL TD SCH (08:21)
[2018-10-30] MEDS: ALPRAZolam 0.25 MG TAB PO SCH (08:22)
[2018-10-30] MEDS: OMEPRAZOLE 20 MG CAP PO SCH (08:22)
[2018-10-30] MEDS: POTASSIUM CHLORIDE 10 MEQ SR TABLET PO SCH (08:22)
[2018-10-30] MEDS: FOLIC ACID 1 MG TAB PO SCH (08:22)
[2018-10-30 08:27] VITALS: BP 119/62
[2018-10-30] MEDS: METOPROLOL TART 25 MG TABLET PO SCH (08:27)
[2018-10-30] MEDS ORDERED: VITAMIN D 50,000 UNITS CAPSULE (ERGOCALCIFEROL 1.25MG) PO SCH (09:00)
[2018-10-30] MEDS ORDERED: TIOT18INH INH (09:16)
[2018-10-30] MEDS ORDERED: ALPR0.25 PO (10:04)
--- NOTE | 2018-10-30 21:40 | DS.PDOC ---
Discharge Summary General Date of Admission Oct 23, 2018 at 16:49 Date of Discharge 10/30/18 Discharge Summary DISCHARGE DIAGNOSES: COPD exacerbation Community Acquired Pneumonia-Strep pneumo, H. influenzae Rhinovirus and Enteroviral respiratory infection Acute Hypoxic respiratory infection, resolved Active tobacco abuse DISCHARGE MEDICATIONS: PLS SEE BELOW DISCHARGE INSTRUCTIONS: TOBACCO CESSATION COUNSELLING, PCP AND PULM REFERRAL. HISTORY OF PRESENTING ILLNESS: This is a 68-year-old female, active smoker and alcohol abuse, chronic obstructive pulmonary disease, with 30 pack year history of smoking, not on home oxygen, dyslipidemia, and hiatal hernia admitted for hypoxia and respiratory distress and found to have pneumonia initially on doxycycline, currently on Avelox, and COPD exacerbation. HOSPITAL COURSE: Community Acquired Pneumonia. s/p Avelox. sputum cx: h. influenza, Strep pneu mo levaquin. Acute hypoxic respiratory failure,resolved secondary to gram negative pneumonia,rhinovirus community acquired and COPD exacerbation. Not on oxygen at home . stable on po steroids. rhinovirus and enterovirus respiratory infection contact precautions COPD exacerbation. abx. stable on po prednisone. needs outpt pulm referral for PFTs and closer monitoring Hypothyroidism, on Synthroid. Hypertension. On Norvasc, metoprolol and chlorthalidone. Fluid overload. The patient is resumed on her home dose of chlorthalidone and did receive one dose of Lasix today. Chronic alcohol abuse. The patient is on thiamine, folic acid, Ativan and Serax. She is requesting an antianxiety medication and was given one dose of 0.5 mg of Ativan. GI prophylaxis with Prilosec. Tobacco abuse. Tobacco cessation counseling has been provided, nicotine patch has been given. Deep vein thrombosis prophylaxis with Lovenox. DISCHARGE PHYSICAL EXAMINATION: Vital Signs:pls see below Generally, the patient is cachectic appearing . no pursing of lips. appears her stated age. no use of respiratory acc muscles. no tripod positioning. HEENT:No jugular venous distention. There is no thyromegaly. Lungs clear. AEBE. no wheezing Heart: S1 and S2, irregular. no murmurs. Abdomen is soft. Nontender. Nondistended. Positive bowel sounds times four quadrants. No rebound or guarding.no HSM or abdominal bruits. Extremities: No cyanosis, clubbing or any pitting edema. IMAGING STUDIES: 10/23/2018 chest x-ray with bilateral fibroatelectasis and mild patchy infiltrates. Time spent on discharge: 30 minutes Vital Signs/I&Os Vital Signs Date Time Temp Pulse Resp B/P (MAP) Pulse Ox O2 Delivery O2 Flow Rate FiO2 10/30/18 08:27 88 119/62 10/30/18 06:00 98.2 18 94 10/27/18 22:00 3.0 10/27/18 11:05 Room Air I&O- Last 24 Hours up to 6 AM 10/30/18 06:00 Intake Total 1230 ml Output Total 1300 ml Balance -70 ml Laboratory Data Labs 24H Laboratory Tests 2 10/30/18 06:05: Nucleated Red Blood Cells % (auto) 0.0, Anion Gap 6L, Glomerular Filtration Rate > 60.0, Blood Urea Nitrogen 27H, Creatinine 0.61, Sodium Level 140, Potassium Level 4.9, Chloride Level 104, Carbon Dioxide Level 30, Calcium Level 8.7L, Total Creatine Kinase 33, Creatine Kinase MB 1.2, Creatine Kinase MB Relative Index 3.64, Troponin I < 0.02 CBC/BMP Laboratory Tests 10/30/18 06:05 Red Blood Count 3.86 L, Mean Corpuscular Volume 100.5 H, Mean Corpuscular Hemoglobin 32.6, Mean Corpuscular Hemoglobin Concent 32.5, Red Cell Distribution Width 13.0, Calcium Level 8.7 L, Total Creatine Kinase 33 Microbiology Microbiology 10/23/18 Blood Culture - Final, Complete NO GROWTH AFTER 5 DAYS 10/23/18 Blood Culture - Final, Complete NO GROWTH AFTER 5 DAYS 10/24/18 Respiratory Virus Panel (PCR) (DEMAR) - Final, Complete Human Rhinovirus/Enterovirus 10/24/18 Gram Stain - Final, Complete 10/24/18 Sputum Culture - Final, Complete Haemophilus Influenzae Escherichia Coli Raoultella Ornithinolytica Streptococcus Pneumoniae Discharge Medications Scheduled Amlodipine Besylate (Amlodipine Besylate) 5 Mg Tablet, 5 MG PO QHS, (Reported) Calcium Carbonate/Vitamin D3 (Calcium 600-Vit D3 200 Tablet) 1 Tab Tab, 1 TAB PO QHS, (Reported) Chlorthalidone (Chlorthalidone) 25 Mg Tab, 25 MG PO QHS, (Reported) Ergocalciferol (Vitamin D2) (Drisdol) 50,000 Unit Capsule, 50,000 UNIT PO QWEEK, (Reported) MONDAYS Levofloxacin (Levaquin) 750 Mg Tablet, 750 MG PO DAILY@06 Levothyroxine Sodium (Levothyroxine Sodium) 25 Mcg Tablet, 25 MCG PO QHS, (Reported) Metoprolol Tartrate (Metoprolol Tartrate) 25 Mg Tablet, 50 MG PO QHS, (Reported) Miconazole Nitrate (Miconazole Nitrate) 45 Gm Cream.appl, 0 DOSE PV QHS Multivitamins (Thera M Plus Tablet) 1 Each Tablet, 1 TAB PO QHS, (Reported) Nicotine (Nicotine Patch) 14 Mg Patch.td24, 1 PATCH TD DAILY Nystatin (Nystatin Oral Susp) 100,000 Unit/1 Ml Oral.susp, 5 ML PO QID Prednisone (Prednisone) 10 Mg Tablet, 10 MG PO TAPER Take 4 tabs daily x 3 days, then 3 tabs daily x 3 days, then 2 tabs daily x 3 days, then 1 tab daily x 3 days and stop Tiotropium [place] Monohydrate (Spiriva) 18 Mcg Cap.w.dev, 1 INHALATION INH DAILY@08 Scheduled PRN Acetaminophen (Acetaminophen) 325 Mg Tablet, 650 MG PO Q4H PRN for PAIN / FEVER, (Reported) Alprazolam (Alprazolam) 0.25 Mg Tablet, 0.25 MG PO Q8HP PRN for ANX IETY/AGITATION Ipratropium/Albuterol Sulfate (Iprat-Albut 0.5-3(2.5) mg/3 ml) 3 Ml Ampul.neb, 1 VIAL INH Q6H PRN for SOB/WHEEZING, (Reported) Allergies Coded Allergies: meperidine (Verified Allergy, Unknown, 10/23/18) prochlorperazine (Verified Adverse Reaction, Intermediate, RIGIDITY OF JAW, 10/23/18) cephalexin (Verified Adverse Reaction, Mild, N/V, 10/23/18) codeine (Verified Adverse Reaction, Mild, N/V, 10/23/18) lisinopril (Verified Adverse Reaction, Mild, INCREASES POTASSIUM LEVEL, 10/23/18) ATIF DUVAL MD Oct 30, 2018 21:40
== END 2018-10-30 13:10 | disposition home or self-care (01) | DRG 177 ==
LOC: M ED 12:13 → M ED INP 16:49 → M MSPAV 20:58
PROVIDERS: ADMIT Internal Medicine; ATTEND General Practice
DX: J15.6 Pneumonia due to other Gram-negative bacteria (principal); J96.01 Acute respiratory failure with hypoxia; J44.1 Chronic obstructive pulmonary disease with (acute) exacerbation; F10.10 Alcohol abuse, uncomplicated; F17.200 Nicotine dependence, unspecified, uncomplicated; J14 Pneumonia due to Hemophilus influenzae; E78.5 Hyperlipidemia, unspecified; K44.9 Diaphragmatic hernia without obstruction or gangrene; Z79.899 Other long term (current) drug therapy; Z88.5 Allergy status to narcotic agent; Z88.8 Allergy status to other drugs, medicaments and biological substances; E03.9 Hypothyroidism, unspecified; I10 Essential (primary) hypertension

== ENCOUNTER → 2018-11-14 | Outpatient (REF) | payer MEDICARE ==
[~2018-11-14] MED LIST changes: +ACET-908 PO; +ALPR0.25 PO; +DRIS50003 PO; +IPRA0.00 INH; +LEVA750T7 PO; +METO25TA4 PO; +MICO7CR PV; -MULTIVITAMINS/MINERALS THERAP 1 TAB PO SCH; +NYST50SS PO; +PRED10TA2 PO; +TIOT18INH INH
== END ==
LOC: M SFHCLERA 11:59
PROVIDERS: ATTEND Family Medicine
DX: E03.9 Hypothyroidism, unspecified (principal); Z53.8 Procedure and treatment not carried out for other reasons

== ENCOUNTER → 2019-01-19 | Outpatient (REF) | payer MEDICARE ==
[2019-01-19 14:15] LABS: BASO # 0.1 10^3/uL (0.0-0.2); BASO % 0.8 % (0.0-1.0); EOS % 0.4 % (0.0-3.0); HEMATOCRIT 42.1 % (36.0-47.0); HEMOGLOBIN 14.1 g/dl (12.0-15.5); LYMPH # 1.6 10^3/uL (1.5-5.0); MEAN CORPUSCULAR HEMOGLOBIN 31.1 pg (27.0-33.0); MEAN CORPUSCULAR HGB CONC 33.5 g/dl (32.0-36.5); MEAN CORPUSCULAR VOLUME 92.9 fl (80.0-96.0); MONO # 1.1 10^3/uL (0.0-0.8); MONO % 11.1 % (0.0-5.0); NEUTROPHILS % 71.3 % (36.0-66.0); PLATELET COUNT, AUTOMATED 347 10^3/uL (150-450); RED BLOOD COUNT 4.53 10^6/uL (4.00-5.40); WHITE BLOOD COUNT 9.8 10^3/uL (4.0-10.0)
[2019-01-19 14:53] LABS: ALBUMIN 3.1 GM/DL (3.2-5.2); ALT/SGPT 41 U/L (12-78); BILIRUBIN,TOTAL 0.4 MG/DL (0.2-1.0); BLOOD UREA NITROGEN 7 MG/DL (7-18); CALCIUM LEVEL 8.8 MG/DL (8.8-10.2); CARBON DIOXIDE LEVEL 29 MEQ/L (21-32); CHLORIDE LEVEL 87 MEQ/L (98-107); CHOLESTEROL LEVEL 207 MG/DL (<200); CREATININE FOR GFR 0.55 MG/DL (0.55-1.30); FREE T4 1.06 NG/DL (0.76-1.46); GLOMERULAR FILTRATION RATE > 60.0 (>39); GLUCOSE, FASTING 70 MG/DL (70-100); LDL CHOLESTEROL 41 MG/DL (<100); NON-HDL-C 56 MG/DL; POTASSIUM SERUM 4.1 MEQ/L (3.5-5.1); SODIUM LEVEL 130 MEQ/L (136-145); TOTAL PROTEIN 6.3 GM/DL (6.4-8.2); TRIGLYCERIDES LEVEL 74 MG/DL (<150)
[2019-01-19 15:14] LABS: HDL CHOLESTEROL 151 MG/DL (>40)
== END ==
LOC: M SFHCSACK 09:25
PROVIDERS: ATTEND Physician Assistant
DX: I10 Essential (primary) hypertension (principal); E78.2 Mixed hyperlipidemia; E03.9 Hypothyroidism, unspecified; E55.9 Vitamin D deficiency, unspecified

== ENCOUNTER → 2019-07-02 | Outpatient (CLI) | payer MEDICARE ==
[~2019-07-02] MED LIST changes: +OCUVTAB4 PO; +VITA50005 PO
== END ==
LOC: M LABSMTC 09:49
PROVIDERS: ATTEND Anesthesiology
DX: Z01.818 Encounter for other preprocedural examination (principal); Z11.59 Encounter for screening for other viral diseases

== ENCOUNTER 2019-07-05 11:00 | Day surgery (SDC) | payer MEDICARE ==
[~2019-07-05] VITALS: Ht 158.8 cm; Wt 54.6 kg
[~2019-07-05 11:00] MED LIST changes: +BSS IRR 500ML/OMIDRIA 4ML IRR BAG (OR ONLY) (J1097 PER ML) As Ordered ONE; +CEFUROXIME 1MG/0.1ML INTRACAMERAL INJ As Ordered ONE; +DUOVISC (0.50ML VISCOAT/0.55ML PROVISC) OPHTH KIT As Ordered ONE; +MIDAZOLAM INJ 2MG/2ML VIAL (J2250 PER 1MG) As Ordered ONE; +OFLOXACIN 0.3 % (OCUFLOX) OPTH SOL 5ML OD ONE; +PHENYLEPHRINE 2.5% OPHTH SOL 2ML OD ONE; +POVIDONE-IODINE 5% OPHTH PREP SOL 30ML As Ordered ONE; +PROPARACAINE 0.5% OPHTH SOL 15ML OD ONE; +TROPICAMIDE 1% OPHTH SOLN 2ML OD ONE; +fentaNYL 100 MCG/2 ML INJECTION (J3010) As Ordered ONE
[2019-07-05 14:50] VITALS: BP 151/69
--- NOTE | 2019-07-12 23:48 | RO ---
DATE OF PROCEDURE: 07/05/2019 PREOPERATIVE DIAGNOSIS: 1. Visually significant nuclear sclerotic cataract right eye. POSTOPERATIVE DIAGNOSIS: 1. Visually significant nuclear sclerotic cataract right eye. PROCEDURE: 1. Cataract extraction with use of phacoemulsification and placement of intraocular lens, AU00T0, 21.5 D, right eye. SURGEON: Wilner Arriola DO SAMPLE DRILLER: None. ANESTHESIA: Local with monitored anesthesia care (MAC), with Omidria (4 mL/500 mL) mixed into irrigation solution. COMPLICATIONS: None. POSTOPERATIVE CONDITION: Stable. INDICATIONS FOR SURGERY: 1. Blurred vision affecting patients activities of daily living. DESCRIPTION OF PROCEDURE: The patient was seen in the preoperative area and properly identified. The correct operative eye was identified and marked. The patient received topical anesthetic, antibiotics, and topical dilating drops. The patient was then transferred to the operating room. The correct side was re-identified, and a time-out was performed. The eye was prepped and draped in a sterile fashion. The eyelids were isolated with Tegaderm tape, and the lids were held open with an adjustable speculum. A 1.0 mm paracentesis incision was made. Intraocular preservative-free Shugarcaine was then injected into the anterior chamber. Viscoelastic was then injected into the anterior chamber through the paracentesis. Using a 2.4 mm sharp-tipped keratome, the anterior chamber was entered via a temporal clear cornea incision. A continuous curvilinear capsulorrhexis was created with Utrata forceps. Hydrodissection was performed with balanced salt solution (BSS) on a blunt cannula until the nucleus was able to rotate freely. The crystalline lens was phacoemulsified and aspirated. Irrigation/aspiration was used to remove the cortical material. Cohesive viscoelastic was placed into the capsular bag to deepen it. The implant was placed into the capsular bag and allowed to unfold. Placement was confirmed by visualizing the anterior capsulorrhexis. Irrigation/aspiration was used to remove the viscoelastic. The clear corneal incision was hydrated with BSS on a blunt cannula. The lens was well positioned. The incisions were then tested for leaks and found to be negative. Cefuroxime was injected into the anterior chamber. The eye was then palpated for appropriate pressure and adjusted accordingly with BSS. The eyelid speculum was then carefully removed. A shield was placed over the eye. The patient tolerated the procedure well and was discharged to the recovery unit in a stable condition.
== END 2019-07-05 15:05 | disposition home or self-care (01) ==
LOC: M SDC 11:00
PROVIDERS: ATTEND Ophthalmology
DX: H25.11 Age-related nuclear cataract, right eye (principal); I10 Essential (primary) hypertension; E03.9 Hypothyroidism, unspecified; J44.9 Chronic obstructive pulmonary disease, unspecified; K21.9 Gastro-esophageal reflux disease without esophagitis; Z79.899 Other long term (current) drug therapy; F17.218 Nicotine dependence, cigarettes, with other nicotine-induced disorders; Z88.5 Allergy status to narcotic agent; Z88.1 Allergy status to other antibiotic agents; Z88.8 Allergy status to other drugs, medicaments and biological substances
CPT/HCPCS: 66984; J1097; J2250; J3010; V2632

== ENCOUNTER → 2019-07-16 | Outpatient (CLI) | payer MEDICARE ==
[~2019-07-16] MED LIST changes: -BSS IRR 500ML/OMIDRIA 4ML IRR BAG (OR ONLY) (J1097 PER ML) As Ordered ONE; -CEFUROXIME 1MG/0.1ML INTRACAMERAL INJ As Ordered ONE; -DUOVISC (0.50ML VISCOAT/0.55ML PROVISC) OPHTH KIT As Ordered ONE; -MIDAZOLAM INJ 2MG/2ML VIAL (J2250 PER 1MG) As Ordered ONE; -OFLOXACIN 0.3 % (OCUFLOX) OPTH SOL 5ML OD ONE; -PHENYLEPHRINE 2.5% OPHTH SOL 2ML OD ONE; -POVIDONE-IODINE 5% OPHTH PREP SOL 30ML As Ordered ONE; -PROPARACAINE 0.5% OPHTH SOL 15ML OD ONE; -TROPICAMIDE 1% OPHTH SOLN 2ML OD ONE; -fentaNYL 100 MCG/2 ML INJECTION (J3010) As Ordered ONE
== END ==
LOC: M LABSMTC 10:22
PROVIDERS: ATTEND Anesthesiology
DX: Z03.818 Encounter for observation for suspected exposure to other biological agents ruled out (principal); Z11.59 Encounter for screening for other viral diseases
CPT/HCPCS: C9803; U0003

== ENCOUNTER 2019-07-19 09:35 | Day surgery (SDC) | payer MEDICARE ==
[~2019-07-19] VITALS: Ht 157.5 cm; Wt 54.9 kg
[~2019-07-19 09:35] MED LIST changes: -AMLO10TA5 PO; +AMLO1TAB24 PO; +AMLO1TAB25 PO; -AMLO5TAB6 PO; +DUOVISC (0.50ML VISCOAT/0.55ML PROVISC) OPHTH KIT As Ordered ONE; +MIDAZOLAM INJ 2MG/2ML VIAL (J2250 PER 1MG) As Ordered ONE; +OFLOXACIN 0.3 % (OCUFLOX) OPTH SOL 5ML OS ONE; +PHENYLEPHRINE 2.5% OPHTH SOL 2ML OS ONE; +POVIDONE-IODINE 5% OPHTH PREP SOL 30ML As Ordered ONE; +PROPARACAINE 0.5% OPHTH SOL 15ML OS ONE; +TROPICAMIDE 1% OPHTH SOLN 2ML OS ONE; +fentaNYL 100 MCG/2 ML INJECTION (J3010) As Ordered ONE
[2019-07-19] MEDS ORDERED: BSS IRR 500ML/OMIDRIA 4ML IRR BAG (OR ONLY) As Ordered ONE (10:34)
[2019-07-19 12:15] LABS: HEMATOCRIT 39.5 % (36.0-47.0); HEMOGLOBIN 13.6 g/dl (12.0-15.5); MEAN CORPUSCULAR HEMOGLOBIN 33.6 pg (27.0-33.0); MEAN CORPUSCULAR HGB CONC 34.4 g/dl (32.0-36.5); MEAN CORPUSCULAR VOLUME 97.5 fl (80.0-96.0); PLATELET COUNT, AUTOMATED 229 10^3/uL (150-450); RED BLOOD COUNT 4.05 10^6/uL (4.00-5.40); WHITE BLOOD COUNT 9.9 10^3/uL (4.0-10.0)
[2019-07-19 12:39] LABS: BLOOD UREA NITROGEN 8 MG/DL (7-18); CREATININE FOR GFR 0.56 MG/DL (0.55-1.30); GLUCOSE, FASTING 93 MG/DL (70-100)
[2019-07-19 12:40] VITALS: BP 128/68
[2019-07-19 12:40] LABS: CALCIUM LEVEL 8.4 MG/DL (8.8-10.2); CARBON DIOXIDE LEVEL 34 MEQ/L (21-32); CHLORIDE LEVEL 90 MEQ/L (98-107); GLOMERULAR FILTRATION RATE > 60.0 (>39); SODIUM LEVEL 128 MEQ/L (136-145)
--- NOTE | 2019-07-19 21:15 | ECGEPIP ---
[facility] Test Date: 2019-07-19 Pat Name: TRE BOYER Department: Room: - Gender: Female Header Boss: ALY : 1950 Requested By: LINWOOD Clark Order Number: [id number] Reading MD: Kenneth Rahman Measurements Intervals [place] Rate: 67 P: NV: 0 QRS: 60 QRSD: 81 T: 64 QT: 438 QTc: 463 Interpretive Statements ATRIAL FIBRILLATION Nonspecific ST-T wave abnormalities Baseline artifact Previous tracing was sinus on 10-28-18 Electronically Signed on 07-19-2019 21:15:01 EDT by Kenneth Rahman
--- NOTE | 2019-07-24 14:23 | RO ---
DATE OF PROCEDURE: 07/19/2019 PREOPERATIVE DIAGNOSIS: 1. Visually significant nuclear sclerotic cataract left eye. POSTOPERATIVE DIAGNOSIS: 1. Visually significant nuclear sclerotic cataract left eye. PROCEDURE: 1. Cataract extraction with use of phacoemulsification and placement of intraocular lens, AU00T0 22.0 D, left eye. SURGEON: Wilner Arriola DO FICTION WRITER: None. ANESTHESIA: Local with monitored anesthesia care (MAC), with Omidria (4 mL/500 mL) mixed into irrigation solution. COMPLICATIONS: None. POSTOPERATIVE CONDITION: Stable. INDICATIONS FOR SURGERY: 1. Blurred vision affecting patients activities of daily living. DESCRIPTION OF PROCEDURE: The patient was seen in the preoperative area and properly identified. The correct operative eye was identified and marked. The patient received topical anesthetic, antibiotics, and topical dilating drops. The patient was then transferred to the operating room. The correct side was re-identified, and a time-out was performed. The eye was prepped and draped in a sterile fashion. The eyelids were isolated with Tegaderm tape, and the lids were held open with an adjustable speculum. A 1.0 mm paracentesis incision was made. Intraocular preservative-free Shugarcaine was then injected into the anterior chamber. Viscoelastic was then injected into the anterior chamber through the paracentesis. Using a 2.4 mm sharp-tipped keratome, the anterior chamber was entered via a temporal clear cornea incision. A continuous curvilinear capsulorrhexis was created with Utrata forceps. Hydrodissection was performed with balanced salt solution (BSS) on a blunt cannula until the nucleus was able to rotate freely. The crystalline lens was phacoemulsified and aspirated. Irrigation/aspiration was used to remove the cortical material. Cohesive viscoelastic was placed into the capsular bag to deepen it. The implant was placed into the capsular bag and allowed to unfold. Placement was confirmed by visualizing the anterior capsulorrhexis. Irrigation/aspiration was used to remove the viscoelastic. The clear corneal incision was hydrated with BSS on a blunt cannula. The lens was well positioned. The incisions were then tested for leaks and found to be negative. Cefuroxime was injected into the anterior chamber. The eye was then palpated for appropriate pressure and adjusted accordingly with BSS. The eyelid speculum was then carefully removed. A shield was placed over the eye. The patient tolerated the procedure well and was discharged to the recovery unit in a stable condition.
== END 2019-07-19 13:18 | disposition home or self-care (01) ==
LOC: M SDC 09:35
PROVIDERS: ATTEND Ophthalmology
DX: H25.12 Age-related nuclear cataract, left eye (principal); I10 Essential (primary) hypertension; E03.9 Hypothyroidism, unspecified; K21.9 Gastro-esophageal reflux disease without esophagitis; J44.9 Chronic obstructive pulmonary disease, unspecified; F17.218 Nicotine dependence, cigarettes, with other nicotine-induced disorders; Z79.899 Other long term (current) drug therapy; Z88.5 Allergy status to narcotic agent; Z88.1 Allergy status to other antibiotic agents; Z88.8 Allergy status to other drugs, medicaments and biological substances
CPT/HCPCS: 36415; 66984; 80048; 85027; 93005; J1097; J2250; J3010; V2632

== ENCOUNTER → 2019-10-09 | Outpatient (REF) | payer MEDICARE ==
[~2019-10-09] MED LIST changes: -DUOVISC (0.50ML VISCOAT/0.55ML PROVISC) OPHTH KIT As Ordered ONE; -MIDAZOLAM INJ 2MG/2ML VIAL (J2250 PER 1MG) As Ordered ONE; -OFLOXACIN 0.3 % (OCUFLOX) OPTH SOL 5ML OS ONE; -PHENYLEPHRINE 2.5% OPHTH SOL 2ML OS ONE; -POVIDONE-IODINE 5% OPHTH PREP SOL 30ML As Ordered ONE; -PROPARACAINE 0.5% OPHTH SOL 15ML OS ONE; -TROPICAMIDE 1% OPHTH SOLN 2ML OS ONE; -fentaNYL 100 MCG/2 ML INJECTION (J3010) As Ordered ONE
[2019-10-09 19:09] LABS: FREE T4 1.12 NG/DL (0.76-1.46); THYROID STIMULATING HORMONE 4.47 uIU/ML (0.358-3.740)
== END ==
LOC: M LAB REF 18:32 → M SFHCLERA 18:32
PROVIDERS: ATTEND Nurse Practitioner Family
DX: E03.9 Hypothyroidism, unspecified (principal)
CPT/HCPCS: 36415; 84439; 84443; G0463

== ENCOUNTER 2020-03-25 14:36 | Emergency (ER) | payer MEDICARE ==
[~2020-03-25] VITALS: Ht 157.5 cm; Wt 49.1 kg
[2020-03-25 14:58] VITALS: BP 123/86
[2020-03-25] MEDS ORDERED: ONDANSETRON 4MG/2ML VIAL IV ONE (15:00)
[2020-03-25] MEDS ORDERED: MORPHINE 4 MG/ML 1ML VIAL/SYRINGE (J2270) IV PRN (15:00)
--- NOTE | 2020-03-25 15:20 | REP ---
INDICATION: stephanie hayden. COMPARISON: None. TECHNIQUE: Helical scanning is acquired and overlapping 2 mm high resolution axial images were generated and reviewed at bone and soft tissue window settings. Coronal and sagittal multiplanar re-formations images are generated. FINDINGS: There is no evidence of cervical spine element fracture. No skull base fracture is seen. Cervical vertebral body heights are preserved. Alignment is normal. Facet joints are normally aligned bilaterally at each cervical level on multiplanar re-formations images. There is no evidence of intraspinal or paraspinal hematoma. No extra vertebral abnormality is seen. There are degenerative spondylosis changes. Fairly large right anterior discogenic spurring is noted at C4-5 and C5-6. There is bridging anterior osteophyte formation on the right at C6-7 and C7-T1. On the left there is bridging osteophytic fusion anteriorly C6 through T2. None of this impinges on the spinal canal as it is all anterior osteophyte formation. There is osteoarthritic facet hypertrophy and sclerosis bilaterally in the mid cervical spine most pronounced at C3-4 C4-5 and C5-6 on the left. IMPRESSION: Degenerative spondylosis changes with bridging osteophytes affectively fusing levels C6 through T2 as above. Osteoarthritic facet changes. No fracture or other traumatic abnormality.. <Electronically signed by Santiago Bond > 03/25/20 [id number]
--- NOTE | 2020-03-25 15:28 | REP ---
INDICATION: stephanie hayden. COMPARISON: Comparison study is from 01 January 2009.. TECHNIQUE: Helical scanning is acquired. 5 mm axial images were reformatted. Coronal MPR images were generated. FINDINGS: Digital preliminary maitre d' radiograph is unremarkable. The patient is edentulous. Bone window settings demonstrate no bony destructive lesion or skull fracture. The paranasal sinuses are clear. There is vascular calcification in the distal internal carotid arteries bilaterally. No intraorbital abnormality is seen. There is no evidence of intracranial hemorrhage. No in mass, infarct, or extra-axial fluid collection is seen. There is minimal atrophy and small vessel change. IMPRESSION: No acute intracranial abnormality. No skull fracture or intracranial injury. Vascular calcification and minimal atrophy.. <Electronically signed by Santiago Bond > 03/25/20 [id number]
--- NOTE | 2020-03-25 15:38 | REP ---
INDICATION: trauma. COMPARISON: None. TECHNIQUE: Five views of the left elbow are obtained. FINDINGS: Five views of the left L demonstrate a transversely oriented fracture through the supracondylar portion of the left distal humerus. There is slight impaction. No visible displacement. Associated soft tissue swelling is seen. There is diffuse osteoporosis. No fracture is observed in the proximal radius or ulna.. . No opaque foreign body noted. IMPRESSION: Slightly impacted supracondylar fracture of the distal humerus with associated soft tissue swelling. Diffuse osteoporosis.. <Electronically signed by Santiago Bond > 03/25/20 [id number]
--- NOTE | 2020-03-25 16:14 | REP ---
INDICATION: trauma. COMPARISON: Comparison radiographs of the left elbow are from earlier today.. TECHNIQUE: Helical scanning is acquired and 2 mm axial images re-formatted. Coronal and sagittal MPR images are generated and reviewed. FINDINGS: There is a transversely oriented supracondylar fracture of the distal humerus with very slight comminution and impaction. The proximal ulna is intact with some coronoid process spurring. No proximal radial fracture is seen. There are tiny bone fragments along the anterior and along the posterior aspect of the supracondylar fracture which could be intra-articular. There is associated soft tissue swelling. IMPRESSION: Slightly comminuted and impacted supracondylar intra-articular fracture of the distal humerus with of possible intra-articular small fracture fragments. Coronoid process spurring. No radial or ulnar fracture seen. <Electronically signed by Santiago Bond > 03/25/20 [id number]
--- OUTSIDE RECORDS SUMMARY | 2020-03-25 16:51 | CCD ---
Author Author [facility] Organization [facility] Address Unknown Phone Unavailable Care Team Providers Care Psychology Department Chair Name Role Phone Magy Alvarado Unavailable PROBLEMS Type Condition ICD9-CM Code QDV60-CD Code Onset Dates Condition S tatus SNOMED Code Notes Problem Stress incontinence, Female 625.6 Active 6024 1006 Problem Mixed hyperlipidemia E78.2 Active 106438340 Problem Osteopenia M85.80 Active 125788850 Problem Essential hypertension I10 Active 78532645 Problem Chronic obstructive pulmonary disease, unspecified COPD ty pe J44.9 Active 57194625 Problem Alcohol abuse F10.10 Active 21943087 Problem Dysthymia F34.1 Active 32969971 Problem Gastroesophageal reflux disease without esophagitis K21.9 Active 596876686 Problem 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 A ctive 001691912 Problem COPD exacerbation J44.1 Active 682940482 Problem Acquired hypothyroidism E03.9 Active 91410346 2 Problem Adjustment disorder with other symptom F43.29 A ctive 62515508 Problem Basal cell carcinoma C44.91 Active 165942971 Problem Tobacco dependence F17.200 Active 90570520 Problem Vitamin D deficiency E55.9 Active 67330971 Problem Uncomplicated alcohol dependence F10.20 Active 68238143 Problem Hyperlipidemia, unspecified hyperlipidemia type E7 8.5 Active 78676666 ALLERGIES Allergen (clinical drug ingredient) Drug/Non Drug Allergy do cumented on EMR Reaction Allergy Type Onset Date Status cephalexin Keflex(NDC Code:[address]-41) Nausea Drug Allergy Active Compazine ridigity Drug Allergy Active lisinopril Lisinopril(NDC Code:[address]-21) hyperkalemia Drug Aller gy Active ENCOUNTERS from 1950 to 2020-03-01 Encounter Location Date Provider Diagnosis [facility] [address] Feb Magy Alvarado IMMUNIZATIONS Vaccine Route Administration Date Status Influenza (18 yrs & older) Flublok IM Intramuscular Nov 14, 2018 Administered Influenza (18 yrs & older) Flublok IM Intramuscular Feb 13, 2018 Administered Influenza (High Dose 65 & up) IM Intramuscular April 15, 2016 A dministered Influenza (High Dose 65 & up) IM Intramuscular Nov 27, 2013 A dministered Pneumococcal Adult 0.5mL (Pneumovax 23) IM Intramuscular Mar 28, 2014 Administered Pneumococcal 0.5mL (Prevnar 13) IM Intramuscular Sep 26, 2015 Administered SOCIAL HISTORY Tobacco Use: Social History Observation Description Date Details (start date - stop date) Current Smoker Sex Assigned At : Social History Observation Description Sex Assigned At Unknown Education: Question Answer Notes Level of Education: Professional Schools/Masters/PhD Audit Question Answer Notes Total Score: 8 Interpretation: Simple Advice Language: Question Answer Notes Languages spoken: Pashto Baptist: Question Answer Notes Baptist 13 Pent[employer] Sexual Hx: Question Answer Notes Had sex in the last 12 months (vaginal, oral, or anal)? No LMP: men Have you ever had an STD? No Drug and Alcohol Question Answer Notes Total Score: 0 Interpretation: No problems reported BMI Care Goal Follow-Up Question Answer Notes Below Normal BMI Follow-Up Dietary education for weight gain Tobacco Use: Question Answer Notes Are you a: current smoker 3 per day How many cigarettes a day do you smoke? 6-10 Are you interested in quitting? Ready to quit Counseled the patient on tobacco use, cessation provided 09/2018 REASON FOR REFERRAL No Information VITAL SIGNS No information MEDICATIONS Medication SIG (Take, Route, Frequency, Duration) Notes Start Da te End Date Status Ipratropium-Albuterol 0.5-2.5 (3) MG/3ML 3 ml Inhalation dilip ry 6 hrs as needed Not-Taking Levothyroxine Sodium 25 MCG 1 tablet in the morning on an empty stomach Orally Once a day for 30 day(s) Active Synthroid 50 MCG 1 tablet in the morning on a n empty stomach Orally Once a day for 90 day(s) Jan, Not-Taking Eliquis 2.5 MG as directed Orally Ac tive Tacrolimus 0.1 % 1 application Externally twice a day to lips fo r 30 days Dec, Active Triamcinolone Acetonide 0.025 % 1 application External ly Twice a day for 30 days Nov, Active HydrOXYzine Pamoate 25 MG 1 capsule as needed Orally nightly for 30 day(s) Nov, Active Metoprolol Tartrate 25 MG 1 tablet with food Orally Twice a day for 9 0 Active Nicotine 14 MG/24HR 1 patch to skin Transdermal Daily for 14 day (s) Oct, Not-Taking Chlorthalidone 25 mg 1 tab Orally Daily for 30 days Active AmLODIPine Besylate 5 MG 1 tablet Orally Once a day for 30 days Active Acetaminophen 325 MG 650 mg Orally every 4 hrs prn pain/fever Oct, Active Amoxicillin-Pot Clavulanate 875-125 MG 1 tablet Orally every 12 hrs for 10 day(s) Jan, Not-Taking Calcium 600 + D 600-400 MG-UNIT 2 tabs Orally Daily Sep Active Levocetirizine Dihydrochloride 5 MG 1 tablet in the ev ening Orally Once a day for 30 day(s) Nov, Active Vitamin D (Ergocalciferol) 84553 UNIT TAKE 1 CAPSULE BY MOUT H EVERY WEEK for 30 Not-Taking Alprazolam 0.25 MG 1 tablet Orally q 8 hrs prn anxiety/agitation MDD 3 tabs x 4 days Oct, Not-Taking PROCEDURES No Information RESULTS No Results REASON FOR VISIT FYI Appt MEDICAL (GENERAL) HISTORY Type Description Date Medical History hypertension Medical History Tobacco dependence Medical History hyperlipidemia Medical History hiatal hernia/ h/o gastritis Medical History osteopenia Medical History COPD Medical History heavy ETOH use per dtr 01/23 Medical History CAP 01/23 (admitted) Medical History hypothyroidism Medical History SCC of the face x 2 Surgical History T & A 1967 Surgical History NU & BSO Surgical History colonoscopy 07/22/2010 Hospitalization History pneumonia 01/2017 Hospitalization History COPD exascerbation 10/23/18-10/31/18 Goals Section No Information Health Concerns No Information MEDICAL EQUIPMENT No Information MENTAL STATUS No Information FUNCTIONAL STATUS No Information ASSESSMENTS No Information PLAN OF TREATMENT Medication Medication Name Sig Start Date Stop Date Metoprolol Tartrate 25 MG 1 tablet with food Orally Twice a day for 90 Levocetirizine Dihydrochloride 5 MG 1 tablet in the ev ening Orally Once a day for 30 day(s) Nov, HydrOXYzine Pamoate 25 MG 1 capsule as needed Orally nightly for 30 day(s) Nov, Triamcinolone Acetonide 0.025 % 1 application External ly Twice a day for 30 days Nov, AmLODIPine Besylate 5 MG 1 tablet Orally Once a day for 30 days Tacrolimus 0.1 % 1 application Externally twice a day to lips for 30 days Dec, Chlorthalidone 25 mg 1 tab Orally Daily for 30 days Next Appt Details Provider Name:Marisa Palumbo, 2020-03-04 01:00:00 PM, [address] [place], [address], Provider Name:Magy Alvarado, 10:30:00 AM, [address] [place], [address], Insurance Providers Payer Name Payer Address Payer Phone Insured Name Patient Relati onship to Insured Coverage Start Date Coverage End Date [facility] [address] [address] [facility] [phone] TRE BOYER
--- OUTSIDE RECORDS SUMMARY | 2020-03-25 16:51 | CCD ---
Author Author [facility] Organization [facility] Address Unknown Phone Unavailable Care Team Providers Care Solution Strategist Name Role Phone Camilo Hutton Unavailable PROBLEMS Type Condition ICD9-CM Code FVH60-KM Code Onset Dates Condition S tatus SNOMED Code Notes Problem Stress incontinence, Female 625.6 Active 6024 1006 Problem Mixed hyperlipidemia E78.2 Active 438928215 Problem Osteopenia M85.80 Active 721925098 Problem Essential hypertension I10 Active 96601194 Problem Chronic obstructive pulmonary disease, unspecified COPD ty pe J44.9 Active 66457916 Problem Alcohol abuse F10.10 Active 00769227 Problem Dysthymia F34.1 Active 53431973 Problem Gastroesophageal reflux disease without esophagitis K21.9 Active 394764000 Problem 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 A ctive 717442990 Problem COPD exacerbation J44.1 Active 254282612 Problem Acquired hypothyroidism E03.9 Active 87240382 2 Problem Adjustment disorder with other symptom F43.29 A ctive 57461314 Problem Basal cell carcinoma C44.91 Active 074790935 Problem Tobacco dependence F17.200 Active 01554355 Problem Vitamin D deficiency E55.9 Active 70171012 Problem Uncomplicated alcohol dependence F10.20 Active 52062500 Problem Hyperlipidemia, unspecified hyperlipidemia type E7 8.5 Active 39682862 ALLERGIES Allergen (clinical drug ingredient) Drug/Non Drug Allergy do cumented on EMR Reaction Allergy Type Onset Date Status cephalexin Keflex([facility] Code:[address]-83) Nausea Drug Allergy Active Compazine ridigity Drug Allergy Active lisinopril Lisinopril(NDC Code:[address]-41) hyperkalemia Drug Aller gy Active ENCOUNTERS from 1950 to 2020-01-22 Encounter Location Date [facility] [address] [place] [address] Jan, Camilo Hutton IMMUNIZATIONS Vaccine Route Administration Date Status Influenza [...] Advice Language: Question Answer Notes Languages spoken: Citizen [place] Samaritan: Question Answer Notes Samaritan 13 Religion Sexual Hx: Question Answer Notes Had sex [...] 30 day(s) Nov, Active Vitamin D (Ergocalciferol) 95895 UNIT TAKE 1 CAPSULE BY MOUT H EVERY WEEK for 30 Not-Taking Alprazolam 0.25 MG 1 tablet Orally q 8 hrs prn anxiety/agitation MDD 3 tabs x 4 days Oct, Not-Taking PROCEDURES No Information RESULTS No Results REASON FOR VISIT Refill/ fyi MEDICAL (GENERAL) HISTORY Type Description Date Medical [...] days Next Appt Details Provider Name:Marisa Palumbo, 2020-01-24 07:45:00 AM, [address] [place], [address], Provider Name:Diane Turk, 2020-02-28 1 1:00:00 AM, [address] [place], [address], Insurance Providers Payer Name Payer Address Payer Phone Insured Name Patient Relati onship to Insured Coverage Start Date Coverage End Date [facility] [address] [address] [facility] [phone] TRE BOYER self
--- OUTSIDE RECORDS SUMMARY | 2020-03-25 16:51 | CCD ---
Author Author [facility] Organization [facility] Address Unknown Phone Unavailable Care Team Providers Care Surgical Appliances Salesperson Name Role Phone Marisa Palumbo Unavailable PROBLEMS Type Condition ICD9-CM Code [id number] Code Onset Dates Condition S tatus W/U Status Risk SNOMED Code Notes Problem Stress incontinence, Female 625.6 Active confirmed 09535030 Problem Mixed hyperlipidemia E78.2 Active confirmed 640883719 Problem Osteopenia M85.80 Active confirmed 999387288 Problem Essential hypertension I10 Active confirmed 92590796 Problem Chronic obstructive pulmonary disease, unspecified COPD ty pe J44.9 Active confirmed 70344488 Problem Alcohol abuse F10.10 Active confirmed 172341 05 Problem Dysthymia F34.1 Active confirmed 59265526 Problem Gastroesophageal reflux disease without esophagitis K21.9 Active confirmed 095169622 Problem 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 A ctive confirmed 073064635 Problem COPD exacerbation J44.1 Active confirmed 19 0128305 Problem Acquired hypothyroidism E03.9 Active confirmed 451572232 Problem Adjustment disorder with other symptom F43.29 A ctive confirmed 55532790 Problem Basal cell carcinoma C44.91 Active confirmed 968044993 Problem Tobacco dependence F17.200 Active confirmed 04105699 Problem Vitamin D deficiency E55.9 Active confirmed 51642446 Problem Uncomplicated alcohol dependence F10.20 Active conf irmed 60617342 Problem Hyperlipidemia, unspecified hyperlipidemia type E7 8.5 Active confirmed 10384672 ALLERGIES Allergen (clinical drug ingredient) Drug/Non Drug Allergy do cumented on EMR Reaction Allergy Type Onset Date Status cephalexin Keflex([facility] Code:[address]-14) Nausea Drug Allergy Active Compazine ridigity Drug Allergy Active lisinopril Lisinopril([facility] Code:[address]-44) hyperkalemia Drug Aller gy Active ENCOUNTERS from 1950 to 2020-03-10 Encounter Location Date Provider Diagnosis [facility] [address] [place] [address] 2 Feb, Marisa Palumbo Oral pharyngeal candidiasis B37.0 IMMUNIZATIONS Vaccine Route Administration Date Status Influenza [...] Advice Language: Question Answer Notes Languages spoken: Ivorian Jehovah'S Witness: Question Answer Notes Jehovah'S Witness 13 Anabaptism Sexual Hx: Question Answer Notes Had sex [...] REASON FOR REFERRAL No Information VITAL SIGNS Weight 116 lbs Feb, Height 64.5 in Feb, BMI 19.60 kg/m2 Feb, Blood pressure systolic 94 mm Hg Feb, Blood pressure diastolic 54 mm Hg Feb, MEDICATIONS Medication SIG (Take, Route, Frequency, Duration) Notes Start Da te End Date Status Tacrolimus 0.1 % 1 application Externally twice a day to lips Dec, Active HydrOXYzine Pamoate 25 MG 1 capsule as needed Orally nightly for 30 day(s) Active Synthroid 50 MCG 1 tablet in the morning on a n empty stomach Orally Once a day for 90 day(s) Jan, Not-Taking Fluconazole 200 MG 1 tablet Orally 1 pill daily for 30 days Feb, Active Alprazolam 0.25 MG 1 tablet Orally q 8 hrs prn anxiety/agitation MDD 3 tabs x 4 days Oct, Not-Taking Ipratropium-Albuterol 0.5-2.5 (3) MG/3ML 3 ml Inhalation dilip ry 6 hrs as needed Not-Taking Calcium 600 + D 600-400 MG-UNIT 2 tabs Orally Daily Sep Active Acetaminophen 325 MG 650 mg Orally every 4 hrs prn pain/fever Oct, Active Vitamin D (Ergocalciferol) 95765 UNIT TAKE 1 CAPSULE BY MOUT H EVERY WEEK for 30 Not-Taking Amoxicillin-Pot Clavulanate 875-125 MG 1 tablet Orally every 12 hrs for 10 day(s) Jan, Not-Taking Eliquis 2.5 MG as directed Orally Ac tive Levocetirizine Dihydrochloride 5 MG 1 tablet in the ev ening Orally Once a day for 30 day(s) Active Levothyroxine Sodium 25 MCG 1 tablet in the morning on an empty stomach Orally Once a day for 30 day(s) Active Metoprolol Tartrate 25 MG 1 tablet with food Orally Twice a day for 9 0 Active AmLODIPine Besylate 5 MG 1 tablet Orally Once a day for 30 days Active Nicotine 14 MG/24HR 1 patch to skin Transdermal Daily for 14 day (s) Oct, Not-Taking Chlorthalidone 25 mg 1 tab Orally Daily for 30 days Active PROCEDURES No Information RESULTS No Results REASON FOR VISIT LIP RECHECK MEDICAL (GENERAL) HISTORY Type Description Date Medical [...] No Information FUNCTIONAL STATUS No Information ASSESSMENTS Encounter Date Diagnosis Assessment Notes Treatment Notes Treatm ent Clinical Notes Feb, Oral pharyngeal candidiasis (ICD-10 - B37.0) PLAN OF TREATMENT Medication Medication Name Sig Start Date Stop Date HydrOXYzine Pamoate 25 MG 1 capsule as needed Orally nightly for 30 day(s) Levocetirizine Dihydrochloride 5 MG 1 tablet in the ev ening Orally Once a day for 30 day(s) Fluconazole 200 MG 1 tablet Orally 1 pill daily for 30 days 2020 Tacrolimus 0.1 % 1 application Externally twice a day to lips Dec, Next Appt Details 3 weeks Reason:Lip F/U Provider Name:Magy Alvarado, 10:30:00 AM, [address] [place], [address], Provider Name:Marisa Palumbo, 2020-03-25 01:30:00 PM, [address] [place], [address], Follow Up:3 weeksLip F/U Insurance Providers Payer Name Payer Address Payer Phone Insured Name Patient Relati onship to Insured Coverage Start Date Coverage End Date [facility] [employer] [facility] [address] [address] [facility] [id number] [phone] TRE BOYER self
--- OUTSIDE RECORDS SUMMARY | 2020-03-25 16:51 | CCD ---
Author Author [facility] Organization [facility] Address Unknown Phone Unavailable Care Team Providers Care Environmental Conflict Manager Name Role Phone Marisa Palumbo Unavailable PROBLEMS Type Condition ICD9-CM Code TPF21-LT Code Onset Dates Condition S tatus SNOMED Code Notes Problem Stress incontinence, Female 625.6 Active 6024 1006 Problem Mixed hyperlipidemia E78.2 Active 651951357 Problem Osteopenia M85.80 Active 240238065 Problem Essential hypertension I10 Active 36033115 Problem Chronic obstructive pulmonary disease, unspecified COPD ty pe J44.9 Active 75308030 Problem Alcohol abuse F10.10 Active 98585607 Problem Dysthymia F34.1 Active 60619337 Problem Gastroesophageal reflux disease without esophagitis K21.9 Active 181503526 Problem 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 A ctive 760635212 Problem COPD exacerbation J44.1 Active 441572664 Problem Acquired hypothyroidism E03.9 Active 93399520 2 Problem Adjustment disorder with other symptom F43.29 A ctive 47462770 Problem Basal cell carcinoma C44.91 Active 771689342 Problem Tobacco dependence F17.200 Active 04409327 Problem Vitamin D deficiency E55.9 Active 60547898 Problem Uncomplicated alcohol dependence F10.20 Active 57741453 Problem Hyperlipidemia, unspecified hyperlipidemia type E7 8.5 Active 51150473 ALLERGIES Allergen (clinical drug ingredient) Drug/Non Drug Allergy do cumented on EMR Reaction Allergy Type Onset Date Status cephalexin Keflex([facility] Code:[address]-78) Nausea Drug Allergy Active Compazine ridigity Drug Allergy Active lisinopril Lisinopril([facility] Code:[address]-08) hyperkalemia Drug Aller gy Active ENCOUNTERS from 1950 to 2020-01-01 Encounter Location Date Provider Diagnosis [facility] D[facility] [address] [place] [address] Dec, Marisa Palumbo IMMUNIZATIONS Vaccine Route Administration Date Status Influenza [...] Advice Language: Question Answer Notes Languages spoken: Palestinian Cheondoism: Question Answer Notes Cheondoism 13 Holiness Sexual Hx: Question Answer Notes Had sex [...] Once a day for 30 day(s) Active AmLODIPine Besylate 5 MG 1 tablet Orally Once a day for 90 Active Eliquis 2.5 MG as directed Orally Ac [...] 14 day (s) Oct, Not-Taking Chlorthalidone 25 MG TAKE ONE TABLET BY MOUTH EVERY DAY DIRECTED for 90 Active Vitamin D (Ergocalciferol) 88508 UNIT TAKE 1 CAPSULE BY MOUT H EVERY WEEK for 30 Not-Taking Acetaminophen 325 MG 650 mg Orally every 4 hrs prn pain/fever Oct, Active Synthroid 50 MCG 1 tablet in the morning on a n empty stomach Orally Once a day for 90 day(s) Jan, Not-Taking Calcium 600 + D 600-400 MG-UNIT 2 tabs Orally Daily Sep Active Levocetirizine Dihydrochloride 5 MG 1 tablet in the ev ening Orally Once a day for 30 day(s) Nov, Active Amoxicillin-Pot Clavulanate 875-125 MG 1 tablet Orally every 12 hrs for 10 day(s) Jan, Not-Taking Alprazolam 0.25 MG 1 tablet Orally q 8 hrs prn anxiety/agitation MDD 3 tabs x 4 days Oct, Not-Taking PROCEDURES No Information RESULTS No Results REASON FOR VISIT Appointment MEDICAL (GENERAL) HISTORY Type Description Date Medical [...] Twice a day for 30 days Nov, Tacrolimus 0.1 % 1 application Externally twice a day to lips for 30 days Dec, Next Appt Details Provider Name:Marisa Palumbo, 2020-01-14 02:45:00 PM, [address] [place] [address], [id number], Insurance Providers Payer Name Payer Address Payer Phone Insured Name Patient Relati onship to Insured Coverage Start Date Coverage End Date [facility] [employer] [facility] [address] [address] [facility] [id number] [phone] TRE BOYER self
--- OUTSIDE RECORDS SUMMARY | 2020-03-25 16:52 | CCD ---
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 Name Role Phone ANTECOL, Eh RODNEY MD Unavailable Unavailable ANTECOL, Eh RODNEY MD Unavailable Unavailable ANTECOLEh MD Unavailable Unavailable ANTECOLEh MD Unavailable Unavailable ANTECOLEh MD Unavailable Unavailable ANTECOLEh MD Unavailable Unavailable ANTECOLEh MD Unavailable Unavailable ANTECOLEh MD Unavailable Unavailable ANTECOLEh MD Unavailable Unavailable ANTECOLEh MD Unavailable Unavailable ANTECOLEh MD Unavailable Unavailable ANTECOLEh MD Unavailable Unavailable ANTECOLEh MD Unavailable Unavailable ANTECOLEh MD Unavailable Unavailable ANTECOLEh MD Unavailable Unavailable ANTECOLEh MD Unavailable Unavailable ANTECOLEh MD Unavailable Unavailable ANTECOLEh MD Unavailable Unavailable ANTECOLEh MD Unavailable Unavailable ANTECOLEh MD Unavailable Unavailable ANTECOLEh MD Unavailable Unavailable ANTECOLEh MD Unavailable Unavailable ANTECOLEh MD Unavailable Unavailable ANTECOLEh MD Unavailable Unavailable ANTECOLEh MD Unavailable Unavailable ANTECOLEh MD Unavailable Unavailable ANTECOLEh MD Unavailable Unavailable ANTECOLEh MD Unavailable Unavailable ANTECOLEh MD Unavailable Unavailable ANTECOL, Eh RODNEY MD Unavailable Unavailable ANTECOL, Eh RODNEY MD Unavailable Unavailable ANTECOL, Eh RODNEY MD Unavailable Unavailable ANTECOL, Eh RODNEY MD Unavailable Unavailable ANTECOL, Eh RODNEY MD Unavailable Unavailable ANTECOL, Eh RODNEY MD Unavailable Unavailable ANTECOL, Eh RODNEY MD Unavailable Unavailable ANTECOL, Eh RODNEY MD Unavailable Unavailable ANTECOL, Eh RODNEY MD Unavailable Unavailable ANTECOL, Eh RODNEY MD Unavailable Unavailable ANTECOL, Eh RODNEY MD Unavailable Unavailable ANTECOL, Eh RODNEY MD Unavailable Unavailable ANTECOL, Eh RODNEY MD Unavailable Unavailable ANTECOL, Eh RODNEY MD Unavailable Unavailable ANTECOL, Eh RODNEY MD Unavailable Unavailable ANTECOL, Eh RODNEY MD Unavailable Unavailable ANTECOL, Eh RODNEY MD Unavailable Unavailable ANTECOL, Eh RODNEY MD Unavailable Unavailable ANTECOL, Eh RODNEY MD Unavailable Unavailable ANTECOL, Eh RODNEY MD Unavailable Unavailable ANTECOL, Eh RODNEY MD Unavailable Unavailable ANTECOL, Eh RODNEY MD Unavailable Unavailable ANTECOL, Eh RODNEY MD Unavailable Unavailable ANTECOL, Eh RODNEY MD Unavailable Unavailable ANTECOL, Eh RODNEY MD Unavailable Unavailable ANTECOL, Eh RODNEY MD Unavailable Unavailable Mickie ARRIOLAEW DO Unavailable [phone] Mickie ARRIOLA YVONNE DO Unavailable [phone] Mickie ARRIOLA YVONNE DO Unavailable [phone] Mickie ARIROLA YVONNE DO Unavailable [phone] Mickie ARRIOLA YVONNE DO Unavailable [phone] Mickie ARRIOLA YVONNE DO Unavailable [phone] Mickie ARRIOLA YVONNE DO Unavailable [phone] FLAKO AMariaelena YVONNE DO Unavailable [phone] FLAKO A. YVONNE DO Unavailable [phone] FLAKO AMariaelena YVONNE DO Unavailable [phone] Mickie ARRIOLA YVONNE DO Unavailable [phone] Mickie ARRIOLA YVONNE DO Unavailable [phone] FLAKO AMariaelena YVONNE DO Unavailable [phone] Mickie ARRIOLA YVONNE DO Unavailable [phone] Mickie ARRIOLA YVONNE DO Unavailable [phone] FLAKO, A. YVONNE DO Unavailable [phone] Mickie ARRIOLA DO Unavailable [phone] Mickie ARRIOLA DO Unavailable [phone] Mickie ARRIOLA DO Unavailable [phone] Mickie ARRIOLA DO Unavailable [phone] Mickie ARRIOLA DO Unavailable [phone] Re-disclosure Warning The records that you are about to access may contain information from federally-assisted alcohol or drug abuse programs. If such information is present, then the following federally mandated warning applies: This information has been disclosed to you from records protected by federal confidentiality rules (42 CFR part 2). The federal rules prohibit you from making any further disclosure of this information unless further disclosure is expressly permitted by the written consent of the person to whom it pertains or as otherwise permitted by 42 CFR part 2. A general authorization for the release of medical or other information is NOT sufficient for this purpose. The Federal rules restrict any use of the information to criminally investigate or prosecute any alcohol or drug abuse patient.The records that you are about to access may contain highly sensitive health information, the redisclosure of which is protected by Article 27-F of the [facility] Public Health law. If you continue you may have access to information: Regarding HIV / AIDS; Provided by facilities licensed or operated by the [facility] Office of Mental Health; or Provided by the [facility] Office for People With Developmental Disabilities. If such information is present, then the following [facility] mandated warning applies: This information has been disclosed to you from confidential records which are protected by state law. State law prohibits you from making any further disclosure of this information without the specific written consent of the person to whom it pertains, or as otherwise permitted by law. Any unauthorized further disclosure in violation of state law may result in a fine or mcc sentence or both. A general authorization for the release of medical or other information is NOT sufficient authorization for further disc losure. Allergies and Adverse Reactions Type Description Substance Reaction Status Data Source(s ) Drug allergy Amlodipine 10 mg Oral Tablet Amlodipine [facility] (Rashaun Long MD [facility]) Drug allergy Compazene Oral Tablet Compazene Active [facility] (Rashaun Long MD [facility]) Drug allergy Lipitor Lipitor Active [facility] (Kenny Long MD [facility]) Drug allergy Amlodipine 10 mg Oral Tablet Amlodipine 10 mg Oral Tab let Inactive [facility] (Rashaun Long MD [facility]) Drug allergy Compazene Oral Tablet Compazene Oral Tablet A ctive [facility] (Rashaun Long MD [facility]) Drug allergy Lipitor 10 MG Oral Tablet Lipitor 10 MG Oral Tablet Active [facility] (Rashaun Long MD [facility]) lisinopril Lisinopril Lisinopril hyperkalemia Active eCW1 ([facility]) Drug allergy Compazine Drug allergy ridigity Active eCW1 ([facility]) Drug allergy Keflex Cephalexin Nausea Active eCW1 ([facility] Encounters Encounter Providers Location Date Indications Data Source(s ) Outpatient [address] [facility] [id number] 03/04/2020 12:00:00 AM EST eCW1 ([facility]) Unknown [address] [facility] [id number] 02/28/2020 12:00:00 AM EST eCW1 ([facility]) Unknown [address] [facility] [id number] 01/21/2020 12:00:00 AM EST eCW1 ([facility]) Unknown [address] [facility] [id number] 01/01/2020 12:00:00 AM EST eCW1 ([facility]) Outpatient [address] [facility] [id number] 11/15/2019 12:00:00 AM EDT eCW1 ([facility]) Unknown [address] [facility] [id number] 11/15/2019 12:00:00 AM EDT eCW1 ([facility]) Outpatient<td ID="encounterTypeDescripti onID0">3 - 4 WK Post CAT SX</td><td>Yvonne Arriola DO</td><td>Rashaun Petty MD [facility]</td><td>08/14/2019</td><td>7:13AM</td><td>7:42AM</td><td><content ID="encounterDiagnosisID0-0">Pseudophakia</content></td> Attender: YVONNE Baker MD [facility] 08/14/2019 07:13:00 AM EDT - 08/14/2019 07:42:00 AM EDT Pseudophakia [facility] (Rashaun Long MD [facility]) Pseudophakia Outpatient Attender: RASHAUN SAMS MD Main Office 08/02/2019 08:45:00 AM EDT [facility] ([facility]) Outpatient<td ID="encounterTypeDescripti onID1">1 Week Post OP</td><td>Yvonne Arriola DO</td><td>Telemedicine</td><td>07/25/2019</td><td>10:40AM</td><td>12:36PM</td>< td></td> Attender: YVONNE ARRIOLA DO Telemedicine 0 10:40:00 AM EDT - 07/25/2019 12:36:00 PM EDT [facility] (Rashaun kincaid MD [facility]) Outpatient<td ID="encounterTypeDescripti onID2">Rx Refills/Changes</td><td>Yvonne Arriola DO</td><td></td><td>07/19/2019</td><td>2:02PM</td><td>11:59PM</td><td></td> Attender: YVONNE ARRIOLA DO 07/19/2019 02:02:00 PM EDT - 07/19/2019 11:59:00 PM EDT [facility] (Rashaun Long MD [facility]) Outpatient<td ID="encounterTypeDescripti onID3">Extracapsular cataract removal w/IOL implant</td><td>Yvonne Arriola DO</td><td>[facility]</td><td>07/19/2019</td><td>6:54AM</td><td>6:55AM</td><td></td> Attender: YVONNE ARRIOLA DO [facility] 07/19/2019 06:54:00 AM EDT - 07/19/2019 06:55:00 AM EDT [facility] (Rashaun lee MD [facility]) Outpatient<td ID="encounterTypeDescripti onID4">Rx Refills/Changes</td><td>Yvonne Arriola DO</td><td></td><td>07/18/2019</td><td>07/11/2019 1:08PM</td><td>07/11/2019 11:59PM</td><td></td> Attender: YVONNE ARRIOLA DO 020 01:08:00 PM EDT - 07/11/2019 11:59:00 PM EDT [facility] (Rashaun Long MD [facility]) Outpatient<td ID="encounterTypeDescripti onID5">POST OP VISIT WITH PRE- OP</td><td>Yvonne Arriola DO</td><td>Rashaun Petty MD [facility]</td><td>07/11/2019</td><td>9:18AM</td><td>10:04AM</td><td><content ID="encounterDiagnosisID5-0">Pseudophakia</content>, <content ID="encounterDiagnosisID5-1">Cataract Senile Nuclear</content></td> Attender: YVONNE Baker MD [facility] 07/11/2019 09:18:00 AM EDT - 07/11/2019 10:04:00 AM EDT Cataract Senile NuclearPseudophakiaPseudophakiaCataract Senile Nuclear [facility] (Rashaun Long MD [facility]) Cataract Senile Nuclear Pseudophakia Pseudophakia Cataract Senile Nuclear Outpatient<td ID="encounterTypeDescripti onID7">Extracapsular cataract removal w/IOL implant</td><td>Yvonne Arriola DO</td><td>[facility]</td><td>07/05/2019</td><td>7:18AM</td><td>7:18AM</td><td></td> Attender: YVONNE ARRIOLA [facility] 07/05/2019 07:18:00 AM EDT - 07/05/2019 07:18:00 AM EDT [facility] (Rashaun lee MD [facility]) Outpatient<td ID="encounterTypeDescripti onID6">SAME DAY POST OP</td><td>Yvonne Arriola </td><td>[facility]</td><td>07/05/2019</td><td>7:17AM</td><td>7:17AM</td><td></td> Attender: YVONNE ARRIOLA DO [facility] 07/05/2019 07:17:00 AM EDT - 07/05/2019 07:17:00 AM EDT [facility] (Rsahaun lee MD [facility]) Outpatient<td ID="encounterTypeDescripti onID8">A-SCAN</td><td>Yvonne Diazstein DO</td><td>Rashaun Petty MD [facility]</td><td>06/27/2019</td><td>9:12AM</td><td>9:37AM</td><td></td> Attender: YVONNE Baker MD [facility] 06/27/2019 09:12:00 AM EDT - 06/27/2019 09:37:00 AM EDT [facility] (Rashaun lee MD [facility]) [address] [id number] 05/16/2019 12:00:00 AM EDT eCW1 ([facility]) [address] [id number] 05/09/2019 12:00:00 AM EDT eCW1 ([facility]) [address] [id number] 04/11/2019 12:00:00 AM EST eCW1 ([facility]) Outpatient<td ID="encounterTypeDescripti onID9">NEW PATIENT WITH REFERRAL</td><td>Yvonne Arriola DO</td><td>Rashaun Petty MD [facility]</td><td>03/06/2019</td><td>9:08AM</td><td>10:28AM</td><td><content ID="encounterDiagnosisID9-0">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</content>, <content ID="encounterDiagnosisID9- 1">Essential Hypertension</content>, <content ID="encounterDiagnosisID9- 2">Nicotine Dependence Cigarettes Uncomplicated</content>, <content ID="encounterDiagnosisID9-3">Dry Eye Syndrome</content>, <content ID="encounterDiagnosisID9-4">Cataract Senile Nuclear</content>, <content ID="encounterDiagnosisID9-5">Vitreous Disorders Degeneration</content></td> Attender: YVONNE Baker MD [facility] 03/06/2019 09:08:00 AM EST - 03/06/2019 10:28:00 AM EST Vitreous Disorders DegenerationCataract Senile NuclearDry Eye SyndromeNicotine Dependence Cigarettes UncomplicatedEssential HypertensionMacular Degeneration Nonexudative Bilateral Intermediate Dry St ageVitreous Disorders DegenerationCataract Senile NuclearDry Eye SyndromeNicotine Dependence Cigarettes UncomplicatedEssential Hypertension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 [facility] (Rashaun Long MD [facility]) Vitreous Disorders Degeneration Cataract Senile Nuclear Dry Eye Syndrome Nicotine Dependence Cigarettes Uncomplic ated Essential Hypertension Macular Degeneration Nonexudative Bilate ral Intermediate Dry Stage Vitreous Disorders Degeneration Cataract Senile Nuclear Dry Eye Syndrome Nicotine Dependence Cigarettes Uncomplic ated Essential Hypertension Macular Degeneration Nonexudative Bilate ral Intermediate Dry Stage [address] [phone] 01/26/2019 12:00:00 AM EST eCW1 ([facility]) Medications Medication Brand Name Start Date Product Form Dose Route Admi nistrative Instructions Pharmacy Instructions Status Indications Reaction Description Data Source(s) 20 mg 03/21/2020 12:00:00 AM EST capsule,delayed release (DR/EC) 30 TAKE ONE CAPSULE BY MOUTH EVERY MORNING , 30 MINUTES BEFORE MORNING MEAL TAKE ONE CAPSULE BY MOUTH EVERY MORNING , 30 MINUTES BEFORE MORNING MEAL SOLD: 03/22/2020 [facility] 25 mg 03/21/2020 12:00:00 AM EST tablet 90 TAKE ONE TABLET BY MOUTH EVERY DAY TAKE ONE TABLET BY MOUTH EVERY DAY SOLD: 03/22/2020 [facility] 200 mg 03/05/2020 12:00:00 AM EST tablet 30 TAKE 1 TABLET BY MOUTH DAILY TAKE 1 TABLET BY MOUTH DAILY SOLD: 03/10/2020 [facility] Fluconazole 200 MG Oral Tablet Fluconazole 200 MG 03/04/2020 12:00: 00 AM EST 1.0 {tablet} active Fluconazole 200 MG eCW1 ([facility]) 5 mg 01/22/2020 12:00:00 AM EST tablet 30 TAKE ONE TABLET BY MOUTH EVERY DAY TAKE ONE TABLET BY MOUTH EVERY DAY SOLD: 01/23/2020 [facility] 25 mg 01/22/2020 12:00:00 AM EST tablet 30 TAKE ONE TABLET BY MOUTH EVERY DAY TAKE ONE TABLET BY MOUTH EVERY DAY SOLD: 01/23/2020 [facility] Tacrolimus 0.001 MG/MG Topical Ointment Tacrolimus 0.1 % Tac rolimus 0.1 % 01/01/2020 12:00:00 AM EST 1.0 {application} act gallito Tacrolimus 0.1 % eCW1 ([facility]) Tacrolimus 0.001 MG/MG Topical Ointment Tacrolimus 0.1 % Tac rolimus 0.1 % 01/01/2020 12:00:00 AM EST 1.0 {application} act gallito Tacrolimus 0.1 % eCW1 ([facility]) Tacrolimus 0.001 MG/MG Topical Ointment Tacrolimus 0.1 % Tac rolimus 0.1 % 01/01/2020 12:00:00 AM EST 1.0 {application} act gallito Tacrolimus 0.1 % eCW1 ([facility]) 0.1 % 01/01/2020 12:00:00 AM EST ointment 30 USE 1 APPLICATION TWO TIMES A DAY TO LIPS EXPERNALLY USE 1 APPLICATION TWO TIMES A DAY TO LIPS EXPERNALLY SOLD: 01/07/2020 [facility] Tacrolimus 0.001 MG/MG Topical Ointment Tacrolimus 0.1 % Tac rolimus 0.1 % 01/01/2020 12:00:00 AM EST 1.0 {application} act gallito Tacrolimus 0.1 % eCW1 ([facility]) 25 mg 12/06/2019 12:00:00 AM EDT tablet 180 TAKE ONE TABLET BY MOUTH TWICE A DAY WITH FOOD TAKE ONE TABLET BY MOUTH TWICE A DAY WITH FOOD SOLD: 12/10/2019 [facility] 25 mg 11/17/2019 12:00:00 AM EDT capsule 30 TAKE ONE CAPSULE BY MOUTH IN THE EVENING NEEDED TAKE ONE CAPSULE BY MOUTH IN THE EVENING NEEDED JEN [facility] Hydroxyzine Pamoate 25 MG Oral Capsule HydrOXYzine Chelo oate 25 MG HydrOXYzine Pamoate 25 MG 11/15/2019 12:00:00 AM EDT 1.0 {capsule_as_needed} active HydrOXYzine Pamoate 25 MG eCW1 ([facility]) levocetirizine dihydrochloride 5 MG Oral Tablet Levocetirizine Dihydrochloride 5 MG Levocetirizine Dihydrochloride 5 MG 11/15/2019 12:00:00 AM EDT 1.0 {tablet_in_the_evening} active Levoceti rizine Dihydrochloride 5 MG eCW1 ([facility]) Triamcinolone Acetonide 0.41634 MG/MG To pical Ointment Triamcinolone Acetonide 0.025 % Triamcinolone Acetonide 0.025 % 11/15/2019 12:00:00 AM EDT 1.0 {application} active Triamcinolone Acet onide 0.025 % eCW1 ([facility]) Triamcinolone Acetonide 0.11903 MG/MG To pical Ointment Triamcinolone Acetonide 0.025 % Triamcinolone Acetonide 0.025 % 11/15/2019 12:00:00 AM EDT 1.0 {application} active Triamcinolone Acet onide 0.025 % eCW1 ([facility]) Hydroxyzine Pamoate 25 MG Oral Capsule HydrOXYzine Chelo oate 25 MG HydrOXYzine Pamoate 25 MG 11/15/2019 12:00:00 AM EDT 1.0 {capsule_as_needed} active HydrOXYzine Pamoate 25 MG eCW1 ([facility]) Hydroxyzine Pamoate 25 MG Oral Capsule HydrOXYzine Chelo oate 25 MG HydrOXYzine Pamoate 25 MG 11/15/2019 12:00:00 AM EDT 1.0 {capsule_as_needed} active HydrOXYzine Pamoate 25 MG eCW1 ([facility]) 0.025 % 11/15/2019 12:00:00 AM EDT ointment 15 APPLY TO AFFECTED AREA(S) TWO TIMES A DAY APPLY TO AFFECTED AREA(S) TWO TIMES A DAY SOLD: 11/17/2019 [facility] Triamcinolone Acetonide 0.38253 MG/MG To pical Ointment Triamcinolone Acetonide 0.025 % Triamcinolone Acetonide 0.025 % 11/15/2019 12:00:00 AM EDT 1.0 {application} active Triamcinolone Acet onide 0.025 % eCW1 ([facility]) Hydroxyzine Pamoate 25 MG Oral Capsule HydrOXYzine Chelo oate 25 MG HydrOXYzine Pamoate 25 MG 11/15/2019 12:00:00 AM EDT 1.0 {capsule_as_needed} active HydrOXYzine Pamoate 25 MG eCW1 ([facility]) levocetirizine dihydrochloride 5 MG Oral Tablet Levocetirizine Dihydrochloride 5 MG Levocetirizine Dihydrochloride 5 MG 11/15/2019 12:00:00 AM EDT 1.0 {tablet_in_the_evening} active Levoceti rizine Dihydrochloride 5 MG eCW1 ([facility]) Triamcinolone Acetonide 0.70849 MG/MG To pical Ointment Triamcinolone Acetonide 0.025 % Triamcinolone Acetonide 0.025 % 11/15/2019 12:00:00 AM EDT 1.0 {application} active Triamcinolone Acet onide 0.025 % eCW1 ([facility]) Triamcinolone Acetonide 0.12836 MG/MG To pical Ointment Triamcinolone Acetonide 0.025 % Triamcinolone Acetonide 0.025 % 11/15/2019 12:00:00 AM EDT 1.0 {application} active Triamcinolone Acet onide 0.025 % eCW1 ([facility]) 5 mg 11/15/2019 12:00:00 AM EDT tablet 30 TAKE ONE TABLET BY MOUTH IN THE EVENING TAKE ONE TABLET BY MOUTH IN THE EVENING SOLD: 11/17/2019 [facility] levocetirizine dihydrochloride 5 MG Oral Tablet Levocetirizine Dihydrochloride 5 MG Levocetirizine Dihydrochloride 5 MG 11/15/2019 12:00:00 AM EDT 1.0 {tablet_in_the_evening} active Levoceti rizine Dihydrochloride 5 MG eCW1 ([facility]) levocetirizine dihydrochloride 5 MG Oral Tablet Levocetirizine Dihydrochloride 5 MG Levocetirizine Dihydrochloride 5 MG 11/15/2019 12:00:00 AM EDT 1.0 {tablet_in_the_evening} active Levoceti rizine Dihydrochloride 5 MG eCW1 ([facility]) levocetirizine dihydrochloride 5 MG Oral Tablet Levocetirizine Dihydrochloride 5 MG Levocetirizine Dihydrochloride 5 MG 11/15/2019 12:00:00 AM EDT 1.0 {tablet_in_the_evening} active Levoceti rizine Dihydrochloride 5 MG eCW1 ([facility]) Hydroxyzine Pamoate 25 MG Oral Capsule HydrOXYzine Chelo oate 25 MG HydrOXYzine Pamoate 25 MG 11/15/2019 12:00:00 AM EDT 1.0 {capsule_as_needed} active HydrOXYzine Pamoate 25 MG eCW1 ([facility]) 4 mg 10/09/2019 12:00:00 AM EDT tablets,dose pack 21 DIRECTED DIRECTED SOLD: 10/09/2019 [facility] apixaban 5 MG Oral Tablet [Eliquis] Eliquis 5 MG Oral Tablet Eliquis 5 MG Oral Tablet 08/14/2019 12:00:00 AM EDT 1 active apixaban 5 MG Oral Tablet [Eliquis] [facility] (Rashaun Long MD [facility]) 1 % 08/09/2019 12:00:00 AM EDT drops,suspension 10 THE DAY OF SURGERY REMOVE PATCH INSTILL ONE DROP FOUR TIMES A DAY IN THE LEFT EYE THE DAY OF SURGERY REMOVE PATCH INSTILL ONE DROP FOUR TIMES A DAY IN THE LEFT EYE SOLD: 08/15/2019 [facility] 5 mg 08/03/2019 12:00:00 AM EDT tablet 60 TAKE ONE TABLET BY MOUTH TWICE A DAY TAKE ONE TABLET BY MOUTH TWICE A DAY SOLD: 08/03/2019 [facility] 5 mg 08/03/2019 12:00:00 AM EDT tablet 60 TAKE ONE TABLET BY MOUTH TWICE A DAY TAKE ONE TABLET BY MOUTH TWICE A DAY SOLD: 10/31/2019 [facility] 5 mg 08/03/2019 12:00:00 AM EDT tablet 60 TAKE ONE TABLET BY MOUTH TWICE A DAY TAKE ONE TABLET BY MOUTH TWICE A DAY SOLD: 09/05/2019 [facility] 5 mg 08/03/2019 12:00:00 AM EDT tablet 60 TAKE ONE TABLET BY MOUTH TWICE A DAY TAKE ONE TABLET BY MOUTH TWICE A DAY SOLD: 10/03/2019 [facility] 5 mg 08/03/2019 12:00:00 AM EDT tablet 60 TAKE ONE TABLET BY MOUTH TWICE A DAY TAKE ONE TABLET BY MOUTH TWICE A DAY SOLD: 03/20/2020 [facility] apixaban 5 MG Oral Tablet [Eliquis] Eliquis 08/02/2019 12:00:00 AM E DT ORAL active [facility] ([facility] Ketorolac Tromethamine 10 MG Oral Tablet Ketorolac Trometham ine 08/01/2019 12:00:00 AM EDT ORAL active M [facility] ([facility]) prednisolone acetate 10 MG/ML Ophthalmic Suspension Predniso lone Acetate 08/01/2019 12:00:00 AM EDT OPHTHALMIC active [facility] ([facility]) Levothyroxine Sodium 0.05 MG Oral Tablet Levothyroxine Sodiu m 08/01/2019 12:00:00 AM EDT ORAL active M [facility] ([facility]) Preservision Areds 2 08/01/2019 12:00:00 AM EDT ORAL active [facility] ([facility]) Ascorbic Acid 60 MG / Beta Carotene 5000 UNT / Copper Sulfate 40 MG / dl-alpha tocopheryl acetate 30 UNT / Sodium Selenite 0.04 MG / Zinc Oxide 40 MG Oral Tablet Multivitamin Adult 08/01/2019 12:00:00 AM EDT ORAL active [facility] ([facility]) Metoprolol Tartrate 25 MG Oral Tablet Metoprolol Tartrate 12:00:00 AM EDT ORAL active [facility] ([facility]) Amlodipine 5 MG Oral Tablet Amlodipine Besylate 08/01/2019 12:00:00 A M EDT ORAL active [facility] ([facility]) Chlorthalidone 25 MG Oral Tablet Chlorthalidone 08/01/2019 12:00:00 A M EDT ORAL active [facility] ([facility]) BromSite 0.075% Ophthalmic Solution BromSite 0.075% Ophthalm ic Solution 07/30/2019 12:00:00 AM EDT aborted bromfenac 0.75 MG/ML Ophthalmic Solution [Bromsite] [facility] (Rashaun Long MD [facility]) 0.4 % 07/29/2019 12:00:00 AM EDT drops 10 STARTING 3 DAYS PRIOR TO SURGERY , INSTILL ONE DROP FOUR TIMES A DAY IN THE SURGICAL EYE STARTING 3 DAYS PRIOR TO SURGERY , INSTILL ONE DROP FOUR TIMES A DAY IN THE SURGICAL EYE SOLD: 07/30/2019 [facility] 1 % 07/21/2019 12:00:00 AM EDT drops,suspension 10 DAY OF SURGERY REMOVE PATCH , THEN INSTILL ONE DROP FOUR TIMES A DAY IN THE SURGICAL EYE DAY OF SURGERY REMOVE PATCH , THEN INSTILL ONE DROP FOUR TIMES A DAY IN THE SURGICAL EYE SOLD: 07/23/2019 [facility] Ketorolac Tromethamine 4 MG/ML Ophthalmi c Solution Ketorolac Tromethamine 0.4% Ophthalmic Solution Ketorolac Tromethamine 0.4% Ophthalmic Solution 2019 12:00:00 AM EDT aborted Ketorolac Tromethamine 4 MG/ML Ophthalmic Solution [facility] (Rashaun Long MD [facility]) prednisolone acetate 10 MG/ML Ophthalmic Suspension [Pred Forte] Pred Forte 1% Ophthalmic Suspension Pred Forte 1% Ophthalmic Suspension 07/19/2019 12:00:0 0 AM EDT aborted predniso lone acetate 10 MG/ML Ophthalmic Suspension [Pred Forte] [facility] (Rashaun Long MD [facility]) Ofloxacin 3 MG/ML Ophthalmic Solution Ofloxacin 0.3% O phthalmic Solution Ofloxacin 0.3% Ophthalmic Solution 07/19/2019 12:00:00 AM EDT aborted Ofloxacin 3 MG/ML Ophthalmic Solution [facility] (Rashaun Long MD [facility]) prednisolone acetate 10 MG/ML Ophthalmic Suspension [Pred Forte] Pred Forte 1% Ophthalmic Suspension Pred Forte 1% Ophthalmic Suspension 07/18/2019 12:00:0 0 AM EDT aborted predniso lone acetate 10 MG/ML Ophthalmic Suspension [Pred Forte] [facility] (Rashaun Long MD [facility]) 0.4 % 06/27/2019 12:00:00 AM EDT drops 10 INSTILL 1 DROP IN THE RIGHT EYE FOUR TIMES A DAY START 3 DAYS PRIOR TO SURGERY INSTILL 1 DROP IN THE RIGHT EYE FOUR TIMES A DAY START 3 DAYS PRIOR TO SURGERY SOLD: 06/27/2019 [facility] Ketorolac Tromethamine 4 MG/ML Ophthalmi c Solution Ketorolac Tromethamine 0.4% Ophthalmic Solution Ketorolac Tromethamine 0.4% Ophthalmic Solution 2019 12:00:00 AM EDT aborted Ketorolac Tromethamine 4 MG/ML Ophthalmic Solution [facility] (Rashaun Long MD [facility]) 0.3 % 06/27/2019 12:00:00 AM EDT drops 5 INSTILL 1 DROP IN THE RIGHT EYE FOUR TIMES A DAY START 3 DAYS PRIOR TO SURGERY INSTILL 1 DROP IN THE RIGHT EYE FOUR TIMES A DAY START 3 DAYS PRIOR TO SURGERY SOLD: 06/27/2019 [facility] 0.4 % 06/27/2019 12:00:00 AM EDT drops 5 INSTILL 1 DROP IN THE RIGHT EYE FOUR TIMES A DAY START 3 DAYS PRIOR TO SURGERY INSTILL 1 DROP IN THE RIGHT EYE FOUR TIMES A DAY START 3 DAYS PRIOR TO SURGERY SOLD: 07/18/2019 [facility] 0.3 % 06/27/2019 12:00:00 AM EDT drops 5 INSTILL 1 DROP IN THE RIGHT EYE FOUR TIMES A DAY START 3 DAYS PRIOR TO SURGERY INSTILL 1 DROP IN THE RIGHT EYE FOUR TIMES A DAY START 3 DAYS PRIOR TO SURGERY SOLD: 07/18/2019 [facility] Ofloxacin 3 MG/ML Ophthalmic Solution Ofloxacin 0.3% O phthalmic Solution Ofloxacin 0.3% Ophthalmic Solution 06/27/2019 12:00:00 AM EDT aborted Ofloxacin 3 MG/ML Ophthalmic Solution [facility] (Rashaun Long MD [facility]) prednisolone acetate 10 MG/ML Ophthalmic Suspension [Pred Forte] Pred Forte 1% Ophthalmic Suspension Pred Forte 1% Ophthalmic Suspension 06/27/2019 12:00:0 0 AM EDT aborted predniso lone acetate 10 MG/ML Ophthalmic Suspension [Pred Forte] [facility]SI (Rashaun Long MD [facility]) 1 % 06/27/2019 12:00:00 AM EDT drops,suspension 10 INSTILL 1 DROP IN THE RIGHT EYE FOUR TIMES A DAY DAY OF SURGERY REMOVE PATCH AND USE INSTILL 1 DROP IN THE RIGHT EYE FOUR TIMES A DAY DAY OF SURGERY REMOVE PATCH AND USE SOLD: 06/27/2019 [facility] 1,250 mcg (50,000 unit) 03/18/2019 12:00:00 AM EST capsule 4 TAKE ONE CAPSULE BY MOUTH EVERY WEEK TAKE ONE CAPSULE BY MOUTH EVERY WEEK SOLD: 04/25/2019 [facility] 1,250 mcg (50,000 unit) 03/18/2019 12:00:00 AM EST capsule 4 TAKE ONE CAPSULE BY MOUTH EVERY WEEK TAKE ONE CAPSULE BY MOUTH EVERY WEEK SOLD: 03/18/2019 [facility] Metoprolol 25 MG Oral Tablet Metoprolol 25 MG Oral Tablet 12:00:00 AM EST 1 active Metoprolol [facility] (Rashaun Long MD [facility]) Aspirin 81 MG Delayed Release Oral Table t Adult Aspirin EC Low Strength 81 MG Oral Tablet Delayed Release Adult Aspirin EC Low Strength 81 MG Oral Tablet Delayed Release 03/06/2019 12:00:00 AM EST 1 ac tive Aspirin 81 MG Delayed Release Oral Tablet CRITZ (Rashaun Long MD [facility]) Levothyroxine Sodium 0.05 MG Oral Tablet Levothyroxine Sodium 50 MCG Oral Tablet Levothyroxine Sodium 50 MCG Oral Tablet 03/06/2019 12:00:00 AM EST 1 active Levothyroxine Sodium 0.05 MG Ora l Tablet CRITZ (Rashaun Long MD [facility]) Chlorthalidone 25 MG Oral Tablet Chlorthalidone 25 MG Oral T ablet 03/06/2019 12:00:00 AM EST 1 active Chlortha lidone 25 MG Oral Tablet [facility]Z (Rashaun Long MD [facility]) Amlodipine 5mg Oral Tablet Amlodipine 5mg Oral Tablet 2019 12:00:00 AM EST 1 active Amlodipine 5mg Or al Tablet [facility]SI (Rashaun Long MD [facility]) Amoxicillin 875 MG / Clavulanate 125 MG Oral Tablet Amoxicillin-Pot Clavulanate 875-125 MG Amoxicillin-Pot Clavulanate 875-125 MG 01/26/2019 12:00:00 AM ES T 1.0 {tablet} suspended Amoxicillin-Pot C lavulanate 875-125 MG eCW1 ([facility]) Amoxicillin 875 MG / Clavulanate 125 MG Oral Tablet Amoxicillin-Pot Clavulanate 875-125 MG Amoxicillin-Pot Clavulanate 875-125 MG 01/26/2019 12:00:00 AM ES T 1.0 {tablet} suspended Amoxicillin-Pot C lavulanate 875-125 MG eCW1 ([facility]) Levothyroxine Sodium 0.05 MG Oral Tablet [Synthroid] S ynthroid 50 MCG Synthroid 50 MCG 01/26/2019 12:00:00 AM EST suspended Synthroid 50 MCG eCW1 ([facility]) Levothyroxine Sodium 0.05 MG Oral Tablet [Synthroid] S ynthroid 50 MCG Synthroid 50 MCG 01/26/2019 12:00:00 AM EST suspended Synthroid 50 MCG eCW1 ([facility]) Levothyroxine Sodium 0.05 MG Oral Tablet [Synthroid] S ynthroid 50 MCG Synthroid 50 MCG 01/26/2019 12:00:00 AM EST suspended Synthroid 50 MCG eCW1 ([facility]) 50 mcg 01/26/2019 12:00:00 AM EST tablet 90 TAKE ONE TABLET BY MOUTH EVERY MORNING ON AN EMPTY STOMACH TAKE ONE TABLET BY MOUTH EVERY MORNING O N AN EMPTY STOMACH SOLD: 07/23/2019 [facility] Levothyroxine Sodium 0.05 MG Oral Tablet [Synthroid] S ynthroid 50 MCG Synthroid 50 MCG 01/26/2019 12:00:00 AM EST suspended Synthroid 50 MCG eCW1 ([facility]) 50 mcg 01/26/2019 12:00:00 AM EST tablet 90 TAKE ONE TABLET BY MOUTH EVERY MORNING ON AN EMPTY STOMACH TAKE ONE TABLET BY MOUTH EVERY MORNING O N AN EMPTY STOMACH SOLD: 10/24/2019 [facility] Amoxicillin 875 MG / Clavulanate 125 MG Oral Tablet Amoxicillin-Pot Clavulanate 875-125 MG Amoxicillin-Pot Clavulanate 875-125 MG 01/26/2019 12:00:00 AM ES T 1.0 {tablet} suspended Amoxicillin-Pot C lavulanate 875-125 MG eCW1 ([facility]) 50 mcg 01/26/2019 12:00:00 AM EST tablet 90 TAKE ONE TABLET BY MOUTH EVERY MORNING ON AN EMPTY STOMACH TAKE ONE TABLET BY MOUTH EVERY MORNING O N AN EMPTY STOMACH SOLD: 04/25/2019 [facility] 875-125 mg 01/26/2019 12:00:00 AM EST tablet 20 TAKE ONE TABLET BY MOUTH EVERY 12 HOURS FOR 10 DAYS TAKE ONE TABLET BY MOUTH EVERY 12 HOURS FOR 10 DAYS SOLD: 01/27/2019 [facility] Amoxicillin 875 MG / Clavulanate 125 MG Oral Tablet Amoxicillin-Pot Clavulanate 875-125 MG Amoxicillin-Pot Clavulanate 875-125 MG 01/26/2019 12:00:00 AM ES T 1.0 {tablet} suspended Amoxicillin-Pot C lavulanate 875-125 MG eCW1 ([facility]) Amoxicillin 875 MG / Clavulanate 125 MG Oral Tablet Amoxicillin-Pot Clavulanate 875-125 MG Amoxicillin-Pot Clavulanate 875-125 MG 01/26/2019 12:00:00 AM ES T 1.0 {tablet} suspended Amoxicillin-Pot C lavulanate 875-125 MG eCW1 ([facility]) Levothyroxine Sodium 0.05 MG Oral Tablet [Synthroid] S ynthroid 50 MCG Synthroid 50 MCG 01/26/2019 12:00:00 AM EST suspended Synthroid 50 MCG eCW1 ([facility]) Levothyroxine Sodium 0.05 MG Oral Tablet [Synthroid] S ynthroid 50 MCG Synthroid 50 MCG 01/26/2019 12:00:00 AM EST suspended Synthroid 50 MCG eCW1 ([facility]) Levothyroxine Sodium 0.05 MG Oral Tablet [Synthroid] S ynthroid 50 MCG Synthroid 50 MCG 01/26/2019 12:00:00 AM EST active 1 tablet in the morning on an empty stomach eCW1 ([facility]) Amoxicillin 875 MG / Clavulanate 125 MG Oral Tablet Amoxicillin-Pot Clavulanate 875-125 MG Amoxicillin-Pot Clavulanate 875-125 MG 01/26/2019 12:00:00 AM ES T active 1 tablet eCW1 ([facility]) Amoxicillin 875 MG / Clavulanate 125 MG Oral Tablet Amoxicillin-Pot Clavulanate 875-125 MG Amoxicillin-Pot Clavulanate 875-125 MG 01/26/2019 12:00:00 AM ES T 1.0 {tablet} suspended Amoxicillin-Pot C lavulanate 875-125 MG eCW1 ([facility]) 50 mcg 01/26/2019 12:00:00 AM EST tablet 90 TAKE ONE TABLET BY MOUTH EVERY MORNING ON AN EMPTY STOMACH TAKE ONE TABLET BY MOUTH EVERY MORNING O N AN EMPTY STOMACH SOLD: 01/27/2019 [facility] 5 mg 01/24/2019 12:00:00 AM EST tablet 90 TAKE ONE TABLET BY MOUTH EVERY DAY TAKE ONE TABLET BY MOUTH EVERY DAY SOLD: 10/24/2019 [facility] 5 mg 01/24/2019 12:00:00 AM EST tablet 90 TAKE ONE TABLET BY MOUTH EVERY DAY TAKE ONE TABLET BY MOUTH EVERY DAY SOLD: 01/27/2019 [facility] 5 mg 01/24/2019 12:00:00 AM EST tablet 90 TAKE ONE TABLET BY MOUTH EVERY DAY TAKE ONE TABLET BY MOUTH EVERY DAY SOLD: 04/25/2019 [facility] 5 mg 01/24/2019 12:00:00 AM EST tablet 90 TAKE ONE TABLET BY MOUTH EVERY DAY TAKE ONE TABLET BY MOUTH EVERY DAY SOLD: 07/23/2019 [facility] 25 mg 01/10/2019 12:00:00 AM EST tablet 90 TAKE ONE TABLET BY MOUTH EVERY DAY DIRECTED TAKE ONE TABLET BY MOUTH EVERY DAY DIRECTED SOLD: 020 [facility] 25 mg 01/10/2019 12:00:00 AM EST tablet 90 TAKE ONE TABLET BY MOUTH EVERY DAY DIRECTED TAKE ONE TABLET BY MOUTH EVERY DAY DIRECTED SOLD: 020 [facility] 25 mg 01/10/2019 12:00:00 AM EST tablet 90 TAKE ONE TABLET BY MOUTH EVERY DAY DIRECTED TAKE ONE TABLET BY MOUTH EVERY DAY DIRECTED SOLD: 020 [facility] 25 mg 11/14/2018 12:00:00 AM EDT tablet 180 TAKE ONE TABLET BY MOUTH TWICE A DAY WITH FOOD TAKE ONE TABLET BY MOUTH TWICE A DAY WITH FOOD SOLD: 020 [facility] 25 mg 11/14/2018 12:00:00 AM EDT tablet 180 TAKE ONE TABLET BY MOUTH TWICE A DAY WITH FOOD TAKE ONE TABLET BY MOUTH TWICE A DAY WITH FOOD SOLD: 020 [facility] 25 mcg 11/14/2018 12:00:00 AM EDT tablet 90 TAKE ONE TABLET BY MOUTH EVERY MORNING ON AN EMPTY STOMACH TAKE ONE TABLET BY MOUTH EVERY MORNING O N AN EMPTY STOMACH SOLD: 06/13/2019 [facility] 25 mcg 11/14/2018 12:00:00 AM EDT tablet 90 TAKE ONE TABLET BY MOUTH EVERY MORNING ON AN EMPTY STOMACH TAKE ONE TABLET BY MOUTH EVERY MORNING O N AN EMPTY STOMACH SOLD: 03/18/2019 [facility] 25 mg 11/14/2018 12:00:00 AM EDT tablet 180 TAKE ONE TABLET BY MOUTH TWICE A DAY WITH FOOD TAKE ONE TABLET BY MOUTH TWICE A DAY WITH FOOD SOLD: [facility] 1,250 mcg (50,000 unit) 11/07/2018 12:00:00 AM EDT capsule 4 TAKE 1 CAPSULE BY MOUTH EVERY WEEK TAKE 1 CAPSULE BY MOUTH EVERY WEEK SOLD: 02/11/2019 [facility] Insurance Providers Payer name Policy type / Coverage type Policy ID Covered green party ID Covered green party's relationship to delgado Policy Delgado Plan Information [facility] [id number] SP [id number] MEDICARE [id number] SP [id number] Medicare Part B [facility] [place] [facility] [place] Other 0 Se lf 0 BCBS OF [facility] 306/806 [id number] SP [id number] MEDICARE [id number] SP [id number] A MEDICARE BLUE PPO [id number] SP [id number] MEDICARE [id number] SP [id number] A ANSI-Medicare Part B [id number] ANSI-Medicare Part B [id number] ANSI-Medicare Part B [id number] ANSI-Medicare Part B [id number] ANSI-Medicare Part B [id number] ANSI-Medicare Part B [id number] ANSI-Medicare Part B [id number] ANSI-Medicare Part B [id number] ANSI-Medicare Part B [id number] ANSI-Medicare Part B [id number] MEDICARE C [id number] S [id number] A MEDICARE C [id number] S [id number] [employer] BCBS B [id number] S [id number] BCBS OF [place] 306/806 [id number] SP [id number] EXCELLUS BCBS P [id number] S [id number] [employer]CE[employer] BCBS P [id number] S [id number] BCBS DAVID DOMÍNGUEZ PPO 302/307 [id number] SP [id number] Problems, Conditions, and Diagnoses Code Display Name Description Problem Type Effective Dates Data Source(s) V43.1 Pseudophakia Pseudophakia Problem 07/11/2019 12:00:00 A M EDT [facility] (Rashaun Long MD [facility]) V43.1 Pseudophakia Pseudophakia Problem 07/11/2019 12:00:00 A M EDT [facility] (Rashaun Long MD [facility]) 379.21 Vitreous Disorders Degeneration Vitreous Disorders Deg eneration Problem 03/06/2019 12:00:00 AM EST [facility] (Rashaun Long MD [facility]) 305.1 Nicotine Dependence Cigarettes Uncomplic ated Nicotine Dependence Cigarettes Uncomplicated Problem 03/06/2019 12:00:00 AM EST [facility] (Rashaun Long MD [facility]) 375.15 Dry Eye Syndrome Dry Eye Syndrome Problem 03/06/2019 12 :00:00 AM EST [facility] (Rashaun Long MD [facility]) 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 Nuclear Proble m 03/06/2019 12:00:00 AM EST - 08/14/2019 12:00:00 AM EDT [facility] (Rashaun Long MD [facility]) 401.9 Essential Hypertension Essential Hypertension Problem 03/06/2019 12:00:00 AM EST [facility] (Rashaun Long MD [facility]) [id number] Macular Degeneration Nonexudative Bilate ral Intermediate Dry Stage 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 Problem 03/06/2019 12:00:00 AM EST [facility] (Rashaun Long MD [facility]) 379.21 Vitreous Disorders Degeneration Vitreous Disorders Deg eneration Problem 03/06/2019 12:00:00 AM EST [facility] (Rashaun Long MD [facility]) 305.1 Nicotine Dependence Cigarettes Uncomplic ated Nicotine Dependence Cigarettes Uncomplicated Problem 03/06/2019 12:00:00 AM EST [facility] (Rashaun Long MD [facility]) 375.15 Dry Eye Syndrome Dry Eye Syndrome Problem 03/06/2019 12 :00:00 AM EST [facility] (Rashaun Long MD [facility]) 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 Nuclear Proble m 03/06/2019 12:00:00 AM EST [facility] (Rashaun Long MD [facility]) 401.9 Essential Hypertension Essential Hypertension Problem 03/06/2019 12:00:00 AM EST [facility] (Rashaun Long MD [facility]) H35.3132 Macular Degeneration Nonexudative Bilate ral Intermediate Dry Stage 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 Problem 03/06/2019 12:00:00 AM EST [facility] (Rashaun Long MD [facility]) Surgeries/Procedures Procedure Description Date Indications Data Source(s) Extracapsular extraction of lens (procedure) History o f extracapsular cataract extraction PCIOL OD by Dr. Arriola 07/05/2019 ~PCIOL OS by Dr. Arriola 07/19/2019 08/14/2019 12:00:00 AM EDT [facility] (Bao Long MD [facility]) ECG ROUTINE ECG W/LEAST 12 LDS W/I&R 08/02/2019 12:00: 00 AM EDT [facility]) Arterial Pressure Waveform Analysis For Assessment Of Centra l Art 08/02/2019 12:00:00 AM EDT [facility] ([facility]) Extracapsular cataract removal with intr aocular lens implant (Left side, Related procedure/service by same physician during Post Op) Extracapsular cataract removal with intraocular lens implant (Left side, Related procedure/service by same physician during Post Op) 07/19/2019 12:00:00 AM [facility]T [facility]Rashaun Long [facility]) Ophthalmic biometry - IOL Master with IOL calculation (Professional Comp.) Ophthalmic biometry - IOL Master with IOL calculation (Professional Comp.) 07/11/2019 12:00:00 AM EDT [facility] (Rashaun lee MD [facility]) Reported medical history Pneumonia 2 ti mes in 2019, Anxiety, Depression, Heartburn Reported medical history Pneumonia 2 ti mes in 2019, Anxiety, Depression, Heartburn 07/11/2019 12:00:00 AM EDT [facility] (Dayanara Long MD [facility]) History of hypothyroidism History of hypothyroidism 07/11/2019 1 2:00:00 AM EDT [facility] (Rashaun Long MD [facility]) History of hypertension History of hypertension 07/11/2019 12:00:00 AM EDT [facility] (Rashaun Long MD [facility]) History of hyperlipidemia History of hyperlipidemia 07/11/2019 1 2:00:00 AM EDT [facility] (Rashaun Long MD [facility]) History of asthma History of asthma 07/11/2019 12:00:00 AM EDT [facility] (Rashaun Long MD [facility]) History of arthritis History of arthritis 07/11/2019 12:00:00 AM ED T [facility] (Rashaun Long MD [facility]) Currently wearing eyeglasses Currently wearing eyeglasses 12:00:00 AM EDT [facility] (Rashaun Long MD [facility]) Recent change in medical history PCIOL OD by Dr. Joe mckeon 07/05/2019 Recent change in medical history PCIOL OD by Dr. Arriola 07/05/2019 07/11/2019 12:00:00 AM EDT [facility] (Rashaun Long MD [facility]) History of extracapsular cataract extrac tion PCIOL OD by Dr. Arriola 07/05/2019 History of extracapsular cataract extrac tion PCIOL OD by Dr. Arriola 07/05/2019 07/11/2019 12:00:00 AM EDT [facility] (Bao Long MD [facility]) OPH BMTRY PRTL COHER INTRFRMTRY IO LENS PWR [place] Ophtha lmic biometry - IOL Master with IOL calculation (26) 07/11/2019 12:00:00 AM EDT [facility] (Rashaun Long MD [facility]) Surgical / procedural history Hysterectomy Surgical / procedural history Hysterectomy 07/11/2019 12:00:00 AM EDT [facility] (Bao Long MD [facility]) Extracapsular cataract removal with intraocular lens i mplant (Left side) Extracapsular cataract removal with intraocular lens implant (Left side) 07/05/2019 12:00:00 AM EDT [facility] (Rashaun lee MD [facility]) Ophthalmic biometry - IOL Master with IO L calculation (WAIVER OF LIABILITY ON FILE (ABN)) Ophthalmic biometry - IOL Master with IO L calculation (WAIVER OF LIABILITY ON FILE (ABN)) 06/27/2019 12:00:00 AM EDT [facility] (Rashaun Long MD [facility]) Comprehensive Eye Exam (Signi/Sep Eval. & Man.) Compre hensive Eye Exam (Signi/Sep Eval. & Man.) 03/06/2019 12:00:00 AM EST [facility] (Rashaun Long MD [facility]) Scodi Retina, with interpretation and re port (WAIVER OF LIABILITY ON FILE (ABN)) Scodi Retina, with interpretation and re port (WAIVER OF LIABILITY ON FILE (ABN)) 03/06/2019 12:00:00 AM EST [facility] (Bao Long MD [facility]) Office Visit, Est Pt., Level 2 FC 01/26/2019 12:00:00 AM EST eCW1 ([facility]) Office Visit, Est Pt., Level 4 PC 01/26/2019 12:00:00 AM EST eCW1 ([facility]) Results ID Date Data Source [id number] 07/16/2019 10:20:00 AM EDT [facility] Name Value Range Interpretation Code Description Data Chiara rce(s) Supporting Document(s) SARS CORONAVIRUS 2 RNA [facility] This lab was ordered by [facility] and reported by [facility]. ID Date Data Source [id number] 07/02/2019 09:55:00 AM EDT [facility] Name Value Range Interpretation Code Description Data Chiara rce(s) Supporting Document(s) SARS CORONAVIRUS 2 RNA [facility] This lab was ordered by [facility] and reported by [facility]. Procedure Social History Code Duration Value Status Description Data Source(s ) Smoking 03/04/2020 12:00:00 AM EST Current Smoker completed Curre nt Smoker eCW1 ([facility]) Smoking 11/15/2019 12:00:00 AM EDT Current Smoker completed Curre nt Smoker eCW1 ([facility]) Smoking 11/15/2019 12:00:00 AM EDT Current Smoker completed Curre nt Smoker eCW1 ([facility]) Smoking 11/15/2019 12:00:00 AM EDT Current Smoker completed Curre nt Smoker eCW1 ([facility]) Smoking 11/15/2019 12:00:00 AM EDT Current Smoker completed Curre nt Smoker eCW1 ([facility]) Smoking 11/15/2019 12:00:00 AM EDT Current Smoker completed Curre nt Smoker eCW1 ([facility]) Smoking 07/11/2019 10:03:51 AM EDT Smokes tobacco daily (findi ng) completed Smokes tobacco daily (finding) [facility] (Rashaun Long MD [facility]) Vital Signs ID Date Data Source UNK Name Value Range Interpretation Code Description Data Source(s) Diastolic blood pressure 54 mm[Hg] 54 mm[Hg] eCW1 ([facility]) Systolic blood pressure 94 mm[Hg] 94 mm[Hg] e CW1 ([facility]) Body mass index (BMI) [Ratio] 19.60 kg/m2 19.60 kg/m2 eCW1 ([facility]) Body height 64.5 [in_i] 64.5 [in_i] eCW1 ([facility]) Body weight 116 [lb_av] 116 [lb_av] eCW1 ([facility]) Diastolic blood pressure 56 mm[Hg] 56 mm[Hg] eCW1 ([facility]) Systolic blood pressure 92 mm[Hg] 92 mm[Hg] e CW1 ([facility]) Body mass index (BMI) [Ratio] 18.66 kg/m2 18.66 kg/m2 eCW1 ([facility]) Body height 64.5 [in_i] 64.5 [in_i] eCW1 ([facility]) Body weight 110.4 [lb_av] 110.4 [lb_av] eCW1 ([facility]) Diastolic blood pressure--sitting 70 mm[Hg] 70 mm[Hg] [facility] ([facility]) CBP adult cuff, Ra Systolic blood pressure--sitting 131 mm[Hg] 131 mm[Hg] [facility] ([facility]) CBP adult cuff, Ra Heart rate 60 /min 60 /min [facility] ([facility]) Body mass index (BMI) [Ratio] 21.9 kg/m2 21.9 k g/m2 [facility] ([facility]) Body height 62 [in_i] 62 [in_i] [facility] ([facility]) 5'2" Body weight 120.00 [lb_av] 120.00 [lb_av] [facility] ([facility]) Diastolic blood pressure 58 mm[Hg] 58 mm[Hg] eCW1 ([facility]) Systolic blood pressure 90 mm[Hg] 90 mm[Hg] e CW1 ([facility]) Body temperature 96.8 [degF] 96.8 [degF] eCW1 ( [facility]) Respiratory rate 18 /min 18 /min eCW1 ([facility]) Heart rate 82 /min 82 /min eCW1 ([facility]) Body mass index (BMI) [Ratio] 20.80 kg/m2 20.80 kg/m2 eCW1 ([facility]) Body height 64.5 [in_us] 64.5 [in_us] eCW1 ([facility]) Body weight Measured 123.12 [lb_av] 123.12 [lb_ av] eCW1 ([facility]) Patient Treatment Plan of Care Planned Activity Planned Date Details Description Data Source (s) Fluconazole 200 MG Oral Tablet 03/04/2020 12:00:00 AM EST eCW1 ([facility]) Tacrolimus 0.001 MG/MG Topical Ointment 01/01/2020 12:00:00 AM EST eCW1 ([facility]) Tacrolimus 0.001 MG/MG Topical Ointment 01/01/2020 12:00:00 AM EST eCW1 ([facility]) Tacrolimus 0.001 MG/MG Topical Ointment 01/01/2020 12:00:00 AM EST eCW1 ([facility]) Tacrolimus 0.001 MG/MG Topical Ointment 01/01/2020 12:00:00 AM EST eCW1 ([facility]) levocetirizine dihydrochloride 5 MG Oral Tablet 11/15/2019 12:00:00 AM EDT eCW1 ([facility]) Hydroxyzine Pamoate 25 MG Oral Capsule 11/15/2019 12:00:00 AM EDT eCW1 ([facility]) Triamcinolone Acetonide 0.94513 MG/MG Topical Ointment 11/15/2019 12:00:00 AM EDT eCW1 ([facility]) levocetirizine dihydrochloride 5 MG Oral Tablet 11/15/2019 12:00:00 AM EDT eCW1 ([facility]) Hydroxyzine Pamoate 25 MG Oral Capsule 11/15/2019 12:00:00 AM EDT eCW1 ([facility]) Triamcinolone Acetonide 0.60685 MG/MG Topical Ointment 11/15/2019 12:00:00 AM EDT eCW1 ([facility]) levocetirizine dihydrochloride 5 MG Oral Tablet 11/15/2019 12:00:00 AM EDT eCW1 ([facility]) Hydroxyzine Pamoate 25 MG Oral Capsule 11/15/2019 12:00:00 AM EDT eCW1 ([facility]) Triamcinolone Acetonide 0.80227 MG/MG Topical Ointment 11/15/2019 12:00:00 AM EDT eCW1 ([facility]) levocetirizine dihydrochloride 5 MG Oral Tablet 11/15/2019 12:00:00 AM EDT eCW1 ([facility]) Triamcinolone Acetonide 0.93910 MG/MG Topical Ointment 11/15/2019 12:00:00 AM EDT eCW1 ([facility]) Hydroxyzine Pamoate 25 MG Oral Capsule 11/15/2019 12:00:00 AM EDT eCW1 ([facility]) levocetirizine dihydrochloride 5 MG Oral Tablet 11/15/2019 12:00:00 AM EDT eCW1 ([facility]) Triamcinolone Acetonide 0.09233 MG/MG Topical Ointment 11/15/2019 12:00:00 AM EDT eCW1 ([facility]) Hydroxyzine Pamoate 25 MG Oral Capsule 11/15/2019 12:00:00 AM EDT eCW1 ([facility]) BromSite 0.075% Ophthalmic Solution 07/30/2019 12:00:00 AM EDT [facility] (Rashaun Long MD [facility]) Ketorolac Tromethamine 4 MG/ML Ophthalmic Solution 07/19/2019 12 :00:00 AM EDT [facility] (Rashaun Long MD [facility]) Ofloxacin 3 MG/ML Ophthalmic Solution 07/19/2019 12:00:00 AM EDT [facility] (Rashaun Long MD [facility]) prednisolone acetate 10 MG/ML Ophthalmic Suspension [P red Forte] 07/19/2019 12:00:00 AM EDT [facility] (Rashaun Long MD [facility]) prednisolone acetate 10 MG/ML Ophthalmic Suspension [P red Forte] 07/18/2019 12:00:00 AM EDT [facility] (Rashaun Long MD [facility]) prednisolone acetate 10 MG/ML Ophthalmic Suspension [P red Forte] 06/27/2019 12:00:00 AM EDT [facility] (Rashaun Long MD [facility]) Ofloxacin 3 MG/ML Ophthalmic Solution 06/27/2019 12:00:00 AM EDT [facility] (Rashaun Long MD [facility]) Ketorolac Tromethamine 4 MG/ML Ophthalmic Solution 06/27/2019 12 :00:00 AM EDT [facility] (Rashaun Long MD [facility]) Amoxicillin 875 MG / Clavulanate 125 MG Oral Tablet 01/27/20 19 12:00:00 AM EST [email or web address] ([facility]) Levothyroxine Sodium 0.05 MG Oral Tablet [Synthroid] 019 12:00:00 AM EST [email or web address] ([facility])
[2020-03-25] MEDS ORDERED: HYDR-3713 PO (16:56)
== END 2020-03-25 18:18 | disposition home or self-care (01) ==
LOC: EDBD 14:36 → M ED 14:36
DX: S42.402A Unspecified fracture of lower end of left humerus, initial encounter for closed fracture (principal); W01.0XXA Fall on same level from slipping, tripping and stumbling without subsequent striking against object, initial encounter; Y92.099 Unspecified place in other non-institutional residence as the place of occurrence of the external cause; Y93.9 Activity, unspecified; Y99.9 Unspecified external cause status; M47.813 Spondylosis without myelopathy or radiculopathy, cervicothoracic region; I70.8 Atherosclerosis of other arteries; Z79.899 Other long term (current) drug therapy; Z88.5 Allergy status to narcotic agent; Z88.1 Allergy status to other antibiotic agents; Z88.8 Allergy status to other drugs, medicaments and biological substances
CPT/HCPCS: 70450; 72125; 73080; 73200; 96374; 96375; 99284; J2270; J2405

== ENCOUNTER 2020-04-25 12:50 | Inpatient (IN) | payer MEDICARE ==
[~2020-04-25] VITALS: Ht 157.5 cm; Wt 53.4 kg
[~2020-04-25 12:50] MED LIST changes: +HYDR-3713 PO
[2020-04-25] MEDS ORDERED: LEVOTHYROXINE 50MCG TABLET (0.05MG) PO SCH (13:00)
[2020-04-25] MEDS ORDERED: DOK1CAP7 (13:03)
[2020-04-25] MEDS ORDERED: ELIQ5TAB PO (13:03)
[2020-04-25] MEDS ORDERED: OMEP-218 PO (13:03)
--- NOTE | 2020-04-25 14:22 | REP ---
INDICATION: DYSPNEA/COUGH. COMPARISON: Comparison portable chest x-ray October 28, 2018. TECHNIQUE: Portable upright AP chest radiograph. FINDINGS: Monitoring electrodes are seen. Heart is mildly enlarged. Pulmonary vasculature is cephalized. Pleural angles are sharp. There is no evidence of pulmonary edema or pleural effusion. No focal infiltrate is seen.. IMPRESSION: Cardiomegaly and cephalization of the pulmonary vasculature. No evidence of pleural effusion or pulmonary edema. No focal infiltrate.. <Electronically signed by Santiago Bond > 04/25/20 [id number]
[2020-04-25 14:26] LABS: BASO % 0.4 % (0.0-1.0); EOS % 0.3 % (0.0-3.0); HEMATOCRIT 31.9 % (36.0-47.0); HEMOGLOBIN 10.9 g/dl (12.0-15.5); LYMPH % 14.5 % (24.0-44.0); MEAN CORPUSCULAR HEMOGLOBIN 32.5 pg (27.0-33.0); MEAN CORPUSCULAR HGB CONC 34.2 g/dl (32.0-36.5); MEAN CORPUSCULAR VOLUME 95.2 fl (80.0-96.0); MONO # 0.6 10^3/uL (0.0-0.8); MONO % 8.6 % (2.0-8.0); NEUTROPHILS # 5.4 10^3/uL (1.5-8.5); NEUTROPHILS % 75.8 % (36.0-66.0); PLATELET COUNT, AUTOMATED 295 10^3/uL (150-450); RED BLOOD COUNT 3.35 10^6/uL (4.00-5.40); WHITE BLOOD COUNT 7.1 10^3/uL (4.0-10.0)
[2020-04-25 14:52] LABS: ALBUMIN 2.3 GM/DL (3.2-5.2); ALT/SGPT 49 U/L (12-78); BILIRUBIN,DIRECT 0.2 MG/DL (0.0-0.2); BILIRUBIN,TOTAL 0.3 MG/DL (0.2-1.0); BLOOD UREA NITROGEN 6 MG/DL (7-18); CALCIUM LEVEL 8.1 MG/DL (8.8-10.2); CARBON DIOXIDE LEVEL 28 MEQ/L (21-32); CHLORIDE LEVEL 94 MEQ/L (98-107); CREATININE FOR GFR 0.45 MG/DL (0.55-1.30); GLOMERULAR FILTRATION RATE > 60.0 (>39); GLUCOSE, FASTING 112 MG/DL (70-100); INR 0.92; NT-PRO BNP 1579 PG/ML (<125); POTASSIUM SERUM 3.6 MEQ/L (3.5-5.1); PROTHROMBIN TIME 12.6 SECONDS (12.5-14.3); SODIUM LEVEL 131 MEQ/L (136-145); TOTAL PROTEIN 5.4 GM/DL (6.4-8.2)
[2020-04-25] MEDS ORDERED: ACETAMINOPHEN TAB 650MG DOSE (2X325MG) PO ONE (15:40)
[2020-04-25] MEDS ORDERED: FUROSEMIDE 40MG/4ML VIAL (J1940) IV ONE (16:10)
[2020-04-25] MEDS ORDERED: NICOTINE 21MG/24HR 1 EA TRANSDERMAL TD ONE (16:20)
--- NOTE | 2020-04-25 16:52 | REP ---
INDICATION: edema, postop, off anticoagulants COMPARISON: None. FINDINGS: The deep veins demonstrate normal compression, normal Doppler color flow and normal Doppler waveforms with respiration augmentation from the popliteal veins to the common femoral veins bilaterally. IMPRESSION: There is no deep vein thrombus in the right or left lower extremities. <Electronically signed by Amaury Loving > 04/25/20 [id number]
[2020-04-25] MEDS ORDERED: SYNT50TA PO (17:38)
--- NOTE | 2020-04-25 18:01 | HPEPDOC ---
General Date of Admission 04/25/20 Date of Service: Apr 25, 2020 Chief Complaint The patient is a 69-year-old female admitted with a reason for visit of Leg Swelling. Source: Patient, RN/MD History of Present Illness 69 year old female with PMH of a fib, HTN, HLD, Hypothyroid, alcohol abuse, COPD, smoker, regular heavy alcohol use recently had elbow fracture s/p surgery about 2 weeks ago presented to the ED with swelling of legs for 10 days extending up to her thighs. She tried keeping her legs elevated as much as possible but this just caused the swelling to move up to the thighs. She has chronic cough with minimal phlegm production which she attributes to smoking. S he denies it being any worse than usual. Denied any SOB. denied any dizziness or light headedness or palpitation. SHe feels very anxious and fidgety and requests something to calm her down. CXR showed Cardiomegaly and cephalization of the pulmonary vasculature. No evidence of pleural effusion or pulmonary edema. No focal infiltrate..She is being admitted for possible acute on chronic right heart failure. Home Medications Scheduled Amlodipine Besylate (Amlodipine Besylate) 5 Mg Tablet, 5 MG PO DAILY, (Reported) @ 1500 Apixaban (Eliquis) 5 Mg Tablet, 5 MG PO BID, (Reported) Calcium Carbonate/Vitamin D3 (Calcium 600-Vit D3 200 Tablet) 1 Tab Tab, 1 TAB PO DAILY, (Reported) @ 1500 Chlorthalidone (Chlorthalidone) 25 Mg Tab, 25 MG PO DAILY, (Reported) @ 1500 Levothyroxine Sodium (Synthroid) 50 Mcg Tablet, 50 MCG PO DAILY, (Reported) @ 1500 Metoprolol Tartrate (Metoprolol Tartrate) 25 Mg Tablet, 50 MG PO DAILY, (Reported) @ 1500 Multivitamins (Thera M Plus Tablet) 1 Each Tablet, 1 TAB PO DAILY, (Reported) @ 1500 Omeprazole (Omeprazole) 20 Mg Capsule.dr, 20 MG PO DAILY, (Reported) @ 1500 Vit A/Vit C/Vit E/Zinc/Copper (Preservision Areds Tablet) 1 Each Tablet, 1 TAB PO DAILY, (Reported) @ 1500 Scheduled PRN Acetaminophen (Acetaminophen) 325 Mg Tablet, 650 MG PO Q4H PRN for PAIN / FEVER, (Reported) Allergies Coded Allergies: prochlorperazine (Verified Adverse Reaction, Intermediate, RIGIDITY OF JAW, 07/05/19) cephalexin (Verified Adverse Reaction, Mild, N/V, 07/05/19) codeine (Verified Adverse Reaction, Mild, N/V, 07/05/19) lisinopril (Verified Adverse Reaction, Mild, INCREASES POTASSIUM LEVEL, 07/05/19) meperidine (Verified Adverse Reaction, Mild, INCREASED K, 07/05/19) Past Medical History Medical History HYPERTENSION HYPERLIPIDEMIA HIATAL HERNIA/ H/O GASTRITIS OSTEOPENIA COPD HEAVY ETOH USE PER DTR 01/23 HYPOTHYROIDISM SCC OF THE FACE X 2 Paroxysmal A FIB Anxiety Smoker Surgical History Hysterectomy 30 years ago, tonsillectomy when she was 17, urethroplasty, Elbow Surgery Family History FATHER: 76 YRS, ME, HYPERTENSION, DIABETES, KIDNEY DISEASE MOTHER: 76 YRS, LIVER DZ, HYPERTENSION MATERNAL GRAND MOTHER: CANCER, COLON 1 BROTHER SUDDENLY FROM ME , 1 BROTHER HAS ALZHEIMER, 1 BROTHER HAS DIABETES AND HEART DISEASE Social History * Smoker: current smoker Alcohol: heavy A-FIB/CHADSVASC A-FIB History Current/History of A-Fib/PAF?: Yes Current PO Anticoag Therapy: Yes Review of Systems Constitutional: Denies: Chills, Fever, Night Sweats Eyes: Denies: Pain, Vision change ENT: Denies: Head Aches, Ear Pain, Dysphagia Skin: Reports: Dry; Denies: Rash, Lesions, Breakdown Pulmonary: Reports: Cough (chronic) Cardiovascular: Reports: Edema; Denies: Chest Pain, Palpitations, Orthopnea Gastrointestinal: Denies: Nausea, Vomiting, Abdominal Pain, Diarrhea Genitourinary: Denies: Dysuria, Frequency, Incontinence, Retention Physical Examination General Exam: Positive: Alert, Cooperative, No Acute Distress Eye Exam: Positive: PERRLA, Conjunctiva & lids normal, EOMI; Negative: Sclera icteric ENT Exam: Positive: Atraumatic, Mucous membr. moist/pink, Pharynx Normal Neck Exam: Positive: Supple, JVD; Negative: thyromegaly Chest Exam: Positive: Rhonchi, Wheezing Heart Exam: Positive: Tachycardic, Irregular Rhythm, Normal S1, Normal S2; Negative: Murmurs, Rubs Telemetry: Positive: Atrial fibrillation Abdomen Exam: Positive: Normal bowel sounds, Soft; Negative: Tenderness, Hepatospenomegaly Extremity Exam: Positive: Edema (4+ extending up to the hips. ), Normal pulses, Other (left elbow recent surgery); Negative: Clubbing, Cyanosis Neuro Exam: Positive: Normal Speech, Strength at 5/5 X4 ext, Normal Tone Psych Exam: Positive: Anxiety, Memory Intact, Oriented x 3 Vital Signs Vital Signs Date Time Temp Pulse Resp B/P (MAP) Pulse Ox O2 Delivery O2 Flow Rate FiO2 04/25/20 14:15 04/25/20 12:51 98.9 102 22 95 Room Air Laboratory Data Labs 24H Laboratory Tests 2 04/25/20 13:55: Immature Granulocyte % (Auto) 0.4, Neutrophils (%) (Auto) 75.8H, Lymphocytes (%) (Auto) 14.5L, Monocytes (%) (Auto) 8.6H, Eosinophils (%) (Auto) 0.3, Basophils (%) (Auto) 0.4, Neutrophils # (Auto) 5.4, Lymphocytes # (Auto) 1.0L, Monocytes # (Auto) 0.6, Eosinophils # (Auto) 0.0, Basophils # (Auto) 0.0, Nucleated Red Blood Cells % (auto) 0.0, Prothrombin Time 12.6, Prothromb Time International Ratio 0.92, Anion Gap 9, Glomerular Filtration Rate > 60.0, Calcium Level 8.1L, Total Bilirubin 0.3, Direct Bilirubin 0.2, Aspartate Amino Transf (AST/SGOT) 45H, Alanine Aminotransferase (ALT/SGPT) 49, Alkaline Phosphatase 403H, NS-Ubn-N-Type Natriuretic Peptide 1579H, Total Protein 5.4L, Albumin 2.3L, Albumin/Globulin Ratio 0.7L 04/25/20 14:00: Lactic Acid Level 2.5*H CBC/BMP Laboratory Tests 04/25/20 13:55 Microbiology Microbiology 04/25/20 Blood Culture, Received Pending 04/25/20 Respiratory Virus Panel (PCR) (DEMAR) - Final, Complete 04/25/20 Blood Culture, Received Pending Assessment/Plan 69 year old female with PMH of a fib, HTN, HLD, Hypothyroid, alcohol abuse, COPD, smoker, regular heavy alcohol use recently had elbow fracture s/p surgery about 2 weeks ago presented to the ED with swelling of legs for 10 days extending up to her thighs. She tried keeping her legs elevated as much as possible but this just caused the swelling to move up to the thighs. She has chr onic cough with minimal phlegm production which she attributes to smoking. She denies it being any worse than usual. Denied any SOB. denied any dizziness or light headedness or palpitation. SHe feels very anxious and fidgety and requests something to calm her down. CXR showed Cardiomegaly and cephalization of the pulmonary vasculature. No evidence of pleural effusion or pulmonary edema. No focal infiltrate..She is being admitted for possible acute on chronic right heart failure. Acute on chronic heart failure she likely has pulmonary hypertension nd right heart failure will start on lasix. 2 gm sodium diet, 1.8 liters fluid restriction, daily weights. Echo ordered. Paroxysmal Afib now in Afib rate controlled will continue metoprolol and eliquis COPD/ chronic bronchitis not on any treatment at home will give duonebs here Smoker discussed smoking cessation Not interested at present. Alcohol use will place on ciwa protocol. Hypothyroid synthroid GERD omeprazole. Plan / VTE VTE Prophylaxis Ordered?: Yes FLAQUITO KUO MD Apr 25, 2020 16:40
[2020-04-25] MEDS ORDERED: LORazepam 2 MG TAB PO PRN (18:15)
[2020-04-25] MEDS: OMEPRAZOLE 20 MG CAP PO SCH (18:21)
[2020-04-25] MEDS: METOPROLOL TART 50 MG TAB PO SCH (18:26)
[2020-04-25 19:00] VITALS: BP 120/64
[2020-04-25 20:58] VITALS: BP 120/64
[2020-04-25] MEDS: DOCUSATE SODIUM 100MG CAPSULE PO SCH (21:06)
[2020-04-25] MEDS: MULTIVITAMINS/MINERALS THERAP 1 TAB PO SCH (21:06)
[2020-04-25] MEDS: APIXABAN 5 MG TAB (ELIQUIS) PO SCH (21:06)
[2020-04-25] MEDS: THIAMINE 100 MG TAB PO SCH (21:06)
[2020-04-25] MEDS: IPRATROPIUM 0.5MG/ALBUTEROL 2.5MG INH SOL UD 3ML (DUONEB) NEB SCH (21:29)
[2020-04-25 22:00] VITALS: BP 120/68
[2020-04-26] VITALS: BP 132/68
[2020-04-26] MEDS: IPRATROPIUM 0.5MG/ALBUTEROL 2.5MG INH SOL UD 3ML (DUONEB) NEB SCH ×4 (00:04→19:06)
[2020-04-26] MEDS: FUROSEMIDE 40MG/4ML VIAL (J1940) IV SCH ×3 (00:10→17:55)
[2020-04-26 02:00] VITALS: BP 132/68
[2020-04-26] MEDS: LEVOTHYROXINE 50MCG TABLET (0.05MG) PO SCH (05:05)
[2020-04-26 06:00] VITALS: BP 110/58
[2020-04-26] MEDS: ACETAMINOPHEN 325 MG/10.15 ML UDC PO PRN ×3 (06:40→22:59)
[2020-04-26 07:03] LABS: BASO % 0.7 % (0.0-1.0); HEMATOCRIT 31.8 % (36.0-47.0); HEMOGLOBIN 10.9 g/dl (12.0-15.5); LYMPH # 0.7 10^3/uL (1.5-5.0); LYMPH % 11.5 % (24.0-44.0); MEAN CORPUSCULAR HGB CONC 34.3 g/dl (32.0-36.5); MEAN CORPUSCULAR VOLUME 93.3 fl (80.0-96.0); MONO # 0.7 10^3/uL (0.0-0.8); NEUTROPHILS # 4.7 10^3/uL (1.5-8.5); NEUTROPHILS % 76.5 % (36.0-66.0); PLATELET COUNT, AUTOMATED 251 10^3/uL (150-450); RED BLOOD COUNT 3.41 10^6/uL (4.00-5.40); WHITE BLOOD COUNT 6.1 10^3/uL (4.0-10.0)
[2020-04-26 07:39] LABS: BLOOD UREA NITROGEN 6 MG/DL (7-18); CALCIUM LEVEL 8.3 MG/DL (8.8-10.2); CARBON DIOXIDE LEVEL 34 MEQ/L (21-32); CHLORIDE LEVEL 89 MEQ/L (98-107); CREATININE FOR GFR 0.38 MG/DL (0.55-1.30); GLOMERULAR FILTRATION RATE > 60.0 (>39); GLUCOSE, FASTING 89 MG/DL (70-100); POTASSIUM SERUM 2.2 MEQ/L (3.5-5.1); SODIUM LEVEL 131 MEQ/L (136-145)
[2020-04-26] MEDS ORDERED: POTASSIUM CHLORIDE 10 MEQ SR TABLET PO ONE ×2 (08:00→10:00)
[2020-04-26 08:15] LABS: MAGNESIUM LEVEL 1.4 MG/DL (1.8-2.4)
[2020-04-26] MEDS ORDERED: FLUBLOK(EGG FREE)(QUAD)INFLUENZA VACC 0.5ML SYRINGE 18YRS & OLDER IM ONE (09:00)
[2020-04-26] MEDS: APIXABAN 5 MG TAB (ELIQUIS) PO SCH ×2 (09:06→20:00)
[2020-04-26] MEDS: THIAMINE 100 MG TAB PO SCH ×2 (09:06→20:00)
[2020-04-26] MEDS: FOLIC ACID 1 MG TAB PO SCH (09:06)
[2020-04-26] MEDS: DOCUSATE SODIUM 100MG CAPSULE PO SCH ×2 (09:06→20:00)
[2020-04-26] MEDS: MULTIVITAMINS/MINERALS THERAP 1 TAB PO SCH (09:06)
[2020-04-26] MEDS ORDERED: MAG SULF 1GM/100ML (MAG RUN) 1 GM in IV 1 EA IV ONE (09:30)
--- NOTE | 2020-04-26 10:59 | IPNPDOC ---
Subjective Date Seen The patient was seen on 04/26/20. Subjective Chief Complaint/HPI Says swelling is better. Had a kaur placed last night as was difficulty getting in and out of bed again and again to go to the bathroom. Good urine output. No fever or chills. Objective Physical Examination General Exam: Positive: Alert, Cooperative, No Acute Distress Eye Exam: Positive: PERRLA, Conjunctiva & lids normal, EOMI; Negative: Sclera icteric ENT Exam: Positive: Atraumatic, Mucous membr. moist/pink, Pharynx Normal Neck Exam: Positive: Supple, JVD; Negative: thyromegaly Chest Exam: Positive: Clear to auscultation, Wheezing Heart Exam: Positive: Tachycardic, Irregular Rhythm, Normal S1, Normal S2; Negative: Murmurs, Rubs Telemetry: Positive: Atrial fibrillation Abdomen Exam: Positive: Normal bowel sounds, Soft; Negative: Tenderness, Hepatospenomegaly Extremity Exam: Positive: Edema (4+ extending up to the hips. ), Normal pulses, Other (left elbow recent surgery); Negative: Clubbing, Cyanosis Neuro Exam: Positive: Normal Speech, Strength at 5/5 X4 ext, Normal Tone Psych Exam: Positive: Anxiety, Memory Intact, Oriented x 3 Assessment /Plan Assessment 69 year old female with PMH of a fib, HTN, HLD, Hypothyroid, alcohol abuse, COPD, smoker, regular heavy alcohol use recently had elbow fracture s/p surgery about 2 weeks ago presented to the ED with swelling of legs for 10 days extending up to her thighs. She tried keeping her legs elevated as much as possible but this just caused the swelling to move up to the thighs. She has chronic cough with minimal phlegm production which she attributes to smoking. S he denies it being any worse than usual. Denied any SOB. denied any dizziness or light headedness or palpitation. SHe feels very anxious and fidgety and requests something to calm her down. CXR showed Cardiomegaly and cephalization of the pulmonary vasculature. No evidence of pleural effusion or pulmonary edema. No focal infiltrate..She is being admitted for possible acute on chronic right heart failure. Acute on chronic heart failure she likely has pulmonary hypertension and right heart failure on lasix. 2 gm sodium diet, 1.8 liters fluid restriction, daily weights. Echo ordered. Paroxysmal Afib now in Afib rate controlled will continue metoprolol and eliquis COPD/ chronic bronchitis not on any treatment at home, Says that she has nebulization machine and solution but does not use it. will give duonebs here Smoker discussed smoking cessation Not interested at present. Alcohol use will place on CIWA protocol. Hypothyroid synthroid GERD omeprazole. Plan/VTE VTE Prophylaxis Ordered?: Yes VS, I&O, 24H, Fishbone Vital Signs/I&O Vital Signs Date Time Temp Pulse Resp B/P (MAP) Pulse Ox O2 Delivery O2 Flow Rate FiO2 04/26/20 06:00 98.8 84 16 110/58 (75) 93 Room Air I&O- Last 24 Hours up to 6 AM 04/26/20 06:00 Intake Total 300 ml Output Total 2100 ml Balance -1800 ml Laboratory Data 24H LABS Laboratory Tests 2 04/25/20 13:55: Immature Granulocyte % (Auto) 0.4, Neutrophils (%) (Auto) 75.8H, Lymphocytes (%) (Auto) 14.5L, Monocytes (%) (Auto) 8.6H, Eosinophils (%) (Auto) 0.3, Basophils (%) (Auto) 0.4, Neutrophils # (Auto) 5.4, Lymphocytes # (Auto) 1.0L, Monocytes # (Auto) 0.6, Eosinophils # (Auto) 0.0, Basophils # (Auto) 0.0, Nucleated Red Blood Cells % (auto) 0.0, Prothrombin Time 12.6, Prothromb Time International Ratio 0.92, Anion Gap 9, Glomerular Filtration Rate > 60.0, Calcium Level 8.1L, Total Bilirubin 0.3, Direct Bilirubin 0.2, Aspartate Amino Transf (AST/SGOT) 45H, Alanine Aminotransferase (ALT/SGPT) 49, Alkaline Phosphatase 403H, SK-Knm-A-Type Natriuretic Peptide 1579H, Total Protein 5.4L, Albumin 2.3L, Albumin/Globulin Ratio 0.7L 04/25/20 14:00: Lactic Acid Level 2.5*H 04/25/20 19:47: Lactic Acid Followup at 4 Hours 2.3*H 04/26/20 06:18: Immature Granulocyte % (Auto) 0.3, Neutrophils (%) (Auto) 76.5H, Lymphocytes (%) (Auto) 11.5L, Monocytes (%) (Auto) 11.0H, Eosinophils (%) (Auto) 0.0, Basophils (%) (Auto) 0.7, Neutrophils # (Auto) 4.7, Lymphocytes # (Auto) 0.7L, Monocytes # (Auto) 0.7, Eosinophils # (Auto) 0.0, Basophils # (Auto) 0.0, Nucleated Red Blood Cells % (auto) 0.0, Anion Gap 8, Glomerular Filtration Rate > 60.0, Calcium Level 8.3L, Magnesium Level 1.4L CBC/BMP Laboratory Tests 04/25/20 13:55 04/26/20 06:18 Microbiology Microbiology 04/25/20 Blood Culture, Received Pending 04/25/20 Respiratory Virus Panel (PCR) (DEMAR) - Final, Complete 04/25/20 Blood Culture, Received Pending FLAQUITO KUO MD Apr 26, 2020 10:59
[2020-04-26] MEDS: NICOTINE 21MG/24HR 1 EA TRANSDERMAL TD SCH (13:52)
[2020-04-26 14:00] VITALS: BP 110/66
[2020-04-26] MEDS: OMEPRAZOLE 20 MG CAP PO SCH (14:43)
[2020-04-26 14:44] VITALS: BP 110/56
[2020-04-26] MEDS: METOPROLOL TART 50 MG TAB PO SCH (14:44)
[2020-04-26] MEDS ORDERED: LEVOTHYROXINE 50MCG TABLET (0.05MG) PO SCH (15:00)
[2020-04-26] MEDS ORDERED: FLUBLOK(EGG FREE)(QUAD)INFLUENZA VACC 0.5ML SYRINGE 18YRS & OLDER IM PRN (17:35)
[2020-04-26] MEDS: LORazepam 0.5 MG TAB PO PRN (19:36)
[2020-04-26 22:00] VITALS: BP 120/64
[2020-04-27] MEDS: IPRATROPIUM 0.5MG/ALBUTEROL 2.5MG INH SOL UD 3ML (DUONEB) NEB SCH (01:06)
[2020-04-27] MEDS: LEVOTHYROXINE 50MCG TABLET (0.05MG) PO SCH (05:41)
[2020-04-27 06:00] VITALS: BP 132/80
[2020-04-27 06:09] LABS: BASO % 0.3 % (0.0-1.0); EOS % 0.1 % (0.0-3.0); HEMATOCRIT 34.4 % (36.0-47.0); HEMOGLOBIN 11.6 g/dl (12.0-15.5); LYMPH # 0.9 10^3/uL (1.5-5.0); LYMPH % 9.8 % (24.0-44.0); MEAN CORPUSCULAR HEMOGLOBIN 32.3 pg (27.0-33.0); MEAN CORPUSCULAR HGB CONC 33.7 g/dl (32.0-36.5); MEAN CORPUSCULAR VOLUME 95.8 fl (80.0-96.0); MONO # 0.8 10^3/uL (0.0-0.8); MONO % 9.1 % (2.0-8.0); NEUTROPHILS # 7.4 10^3/uL (1.5-8.5); NEUTROPHILS % 80.4 % (36.0-66.0); PLATELET COUNT, AUTOMATED 236 10^3/uL (150-450); RED BLOOD COUNT 3.59 10^6/uL (4.00-5.40); WHITE BLOOD COUNT 9.2 10^3/uL (4.0-10.0)
[2020-04-27 06:35] LABS: BLOOD UREA NITROGEN 8 MG/DL (7-18); CALCIUM LEVEL 8.4 MG/DL (8.8-10.2); CARBON DIOXIDE LEVEL 35 MEQ/L (21-32); CHLORIDE LEVEL 90 MEQ/L (98-107); GLOMERULAR FILTRATION RATE > 60.0 (>39); GLUCOSE, FASTING 102 MG/DL (70-100); SODIUM LEVEL 130 MEQ/L (136-145)
[2020-04-27 07:44] LABS: MAGNESIUM LEVEL 1.7 MG/DL (1.8-2.4)
[2020-04-27] MEDS ORDERED: POTASSIUM CHLORIDE 10 MEQ SR TABLET PO ONE (08:00)
--- NOTE | 2020-04-27 08:05 | ECGEPIP ---
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
[2020-04-27] MEDS: NICOTINE 21MG/24HR 1 EA TRANSDERMAL TD SCH (08:13)
[2020-04-27] MEDS: FOLIC ACID 1 MG TAB PO SCH (08:14)
[2020-04-27] MEDS: MULTIVITAMINS/MINERALS THERAP 1 TAB PO SCH (08:14)
[2020-04-27] MEDS: LORazepam 0.5 MG TAB PO PRN (08:14)
[2020-04-27] MEDS: THIAMINE 100 MG TAB PO SCH (08:14)
[2020-04-27] MEDS: DOCUSATE SODIUM 100MG CAPSULE PO SCH (08:14)
[2020-04-27] MEDS: APIXABAN 5 MG TAB (ELIQUIS) PO SCH (08:14)
[2020-04-27] MEDS: ACETAMINOPHEN 325 MG/10.15 ML UDC PO PRN (08:25)
[2020-04-27] MEDS: FUROSEMIDE 40MG/4ML VIAL (J1940) IV SCH (09:00)
[2020-04-27] MEDS ORDERED: POTASSIUM CHLORIDE 10 MEQ SR TABLET PO SCH (09:00)
[2020-04-27] MEDS ORDERED: MAG SULF 1GM/100ML (MAG RUN) 1 GM in IV 1 EA IV ONE (10:30)
[2020-04-27] MEDS ORDERED: TORS20TA2 PO (11:43)
[2020-04-27] MEDS ORDERED: POTA10TA17 PO (11:47)
[2020-04-27] MEDS ORDERED: IPRA0.00 NEB (11:47)
--- NOTE | 2020-04-28 10:36 | ECHO ---
DATE OF PROCEDURE: 04/27/2020 Age: 69 Gender: Female REFERRING PHYSICIAN: Shelby Moctezuma MD. PATIENT LOCATION: Room 4215. REASON FOR STUDY: Pedal edema, heart failure. 2D MEASUREMENTS: IVS 0.6 cm LV 4.7 cm LVPW 1.0 cm LA 3.9 cm Aorta 3.1 cm RV 3.0 cm IVC 1.9 cm DOPPLER MEASUREMENT Peak velocity across the aortic valve 1.5 m/s Peak velocity across the LVOT 1.1 m/s Peak gradient across the aortic valve 9 mmHg Mitral E 1.0 Maximum tricuspid valve velocity 2.5 m/s 2D COMMENTS: 1. Normal left ventricular size and wall thickness, with a low normal global left ventricular systolic function. The basal portion of the anterior septum appeared to be hypokinetic. The estimated left ventricular systolic ejection fraction is 50% to 55%. 2. Subjectively, the left atrium appeared to be mildly enlarged. Mildly enlarged right atrium. The right ventricle also appeared to be enlarged, but with normal contraction. 3. The atrial septum appeared to be normal without evidence of defect or shunt. 4. Normal aortic root. 5. Trace pericardial effusion noted. No evidence of cardiac tamponade. 6. The aortic valve, mitral valve, and tricuspid valve appeared to be normal. The pulmonic valve and proximal pulmonary artery branches were not well visualized. 7. The inferior vena cava was mildly enlarged, central venous pressure might be elevated. Doppler detects mild aortic regurgitation, mild mitral regurgitation, and mild tricuspid regurgitation. The calculated pulmonary artery systolic pressure varies between 30 to 40 mmHg. Assessment of the left ventricular diastolic function was limited in view of the underlying atrial fibrillation. IMPRESSION: 1. Low normal global left ventricular systolic function. The basal portion of the anterior septum appeared to be hypokinetic. 2. Assessment of the left ventricular diastolic function was limited in view of the underlying arrhythmias. 3. Mild aortic regurgitation. 4. Mild mitral regurgitation with probably mildly enlarged left atrium. 5. Mild tricuspid regurgitation with mild pulmonary hypertension. The right heart chambers appear to be enlarged. Could not rule out more severe pulmonary hypertension. Left ventricular systolic function appeared to be normal. 6. Trace pericardial effusion, no evidence of cardiac tamponade. [facility]
--- NOTE | 2020-04-28 12:18 | DS.PDOC ---
Discharge Summary General Date of Admission Apr 25, 2020 at 17:25 Date of Discharge 04/27/20 Discharge Summary PROCEDURES PERFORMED DURING STAY: ECHO: 1. Low normal global left ventricular systolic function. The basal portion of the anterior septum appeared to be hypokinetic. EF of 50% to 55% 2. Assessment of the left ventricular diastolic function was limited in view of the underlying arrhythmias. 3. Mild aortic regurgitation. 4. Mild mitral regurgitation with probably mildly enlarged left atrium. 5. Mild tricuspid regurgitation with mild pulmonary hypertension. The right heart chambers appear to be enlarged. Could not rule out more severe pulmonary hypertension. Left ventricular systolic function appeared to be normal. 6. Trace pericardial effusion, no evidence of cardiac tamponade. DISCHARGE DIAGNOSES: Acute on Chronic diastolic Heart failure Pulmonary hypertension with right hear failure Hypokalemia Hypomagnesemia COPD Hypothyroid Paroxysmal Afib Smoker GERD COMPLICATIONS/CHIEF COMPLAINT: Atrial Fibrillation. HOSPITAL COURSE: 69 year old female with PMH of a fib, HTN, HLD, Hypothyroid, alcohol abuse, COPD, smoker, regular heavy alcohol use recently had elbow fracture s/p surgery about 2 weeks ago presented to the ED with swelling of legs for 10 days extending up to her thighs. She tried keeping her legs elevated as much as possible but this just caused the swelling to move up to the thighs. She has chronic cough with minimal phlegm production which she attributes to smoking. She denies it being any worse than usual. Denied any SOB. denied any dizziness or light headedness or palpitation. SHe feels very anxious and fidgety and requests something to calm her down. CXR showed Cardiomegaly and cephalization of the pulmonary vasculature. No evidence of pleural effusion or pulmonary edema. No focal infiltrate. She is being admitted for acute on chronic heart failure and right heart failure. Acute on chronic heart failure she likely has pulmonary hypertension and right heart failure Echo as above 2 gm sodium diet, 1.8 liters fluid restriction, daily weights. torsemide 20 mg daily with potassium. Hypokalemia and hypomagnesemia replaced. Paroxysmal Afib rate controlled will continue metoprolol and eliquis COPD/ chronic bronchitis not on any treatment at home, Says that she has nebulization machine and solution but does not use it. duonebs. Smoker discussed smoking cessation Not interested at present. Alcohol use drinks 3 mary a day. no withdrawals in hospital Hypothyroid synthroid GERD omeprazole. DISCHARGE MEDICATIONS: Please see below. ALLERGIES: Please see below. PHYSICAL EXAMINATION ON DISCHARGE: VITAL SIGNS: Please see below. General Exam: Positive: Alert, Cooperative, No Acute Distress Eye Exam: Positive: PERRLA, Conjunctiva & lids normal, EOMI; Negative: Sclera icteric ENT Exam: Positive: Atraumatic, Mucous membr. moist/pink, Pharynx Normal Neck Exam: Positive: Supple, No JVD; Negative: thyromegaly Chest Exam: Positive: clear to auscultation. Heart Exam: Positive: Normal rate, Irregular Rhythm, Normal S1, Normal S2; Negative: Murmurs, Rubs Abdomen Exam: Positive: Normal bowel sounds, Soft; Negative: Tenderness, Hepatosplenomegaly Extremity Exam: Positive: Edema 1+ in the legs more in the thighs. Normal pulses, Other (left elbow recent surgery); Negative: Clubbing, Cyanosis Neuro Exam: Positive: Normal Speech, Strength at 5/5 X4 ext, Normal Tone Psych Exam: Positive: Anxiety, Memory Intact, Oriented x 3 LABORATORY DATA: Please see below. IMAGING: CXR: Monitoring electrodes are seen. Heart is mildly enlarged. Pulmonary vasculature is cephalized. Pleural angles are sharp. There is no evidence of pulmonary edema or pleural effusion. No focal infiltrate is seen.. IMPRESSION: Cardiomegaly and cephalization of the pulmonary vasculature. No evidence of pleural effusion or pulmonary edema. No focal infiltrate. US: The deep veins demonstrate normal compression, normal Doppler color flow and normal Doppler waveforms with respiration augmentation from the popliteal veins to the common femoral veins bilaterally. IMPRESSION: There is no deep vein thrombus in the right or left lower extremities. ACTIVITY: [As tolerated]. DIET: 2 gm Na diet, 1.8 L / 24 hours DISCHARGE PLAN: Home DISCHARGE INSTRUCTIONS: Follow up with PMD in 1 week DISCHARGE CONDITION: [Stable]. TIME SPENT ON DISCHARGE: 35 minutes. Vital Signs/I&Os Vital Signs Date Time Temp Pulse Resp B/P (MAP) Pulse Ox O2 Delivery O2 Flow Rate FiO2 04/27/20 06:00 98.4 89 20 132/80 (97) 93 04/26/20 14:00 Room Air I&O- Last 24 Hours up to 6 AM 04/27/20 06:00 Intake Total 1260 ml Output Total 1900 ml Balance -640 ml Laboratory Data Labs 24H Laboratory Tests 2 04/27/20 05:55: Immature Granulocyte % (Auto) 0.3, Neutrophils (%) (Auto) 80.4H, Lymphocytes (%) (Auto) 9.8L, Monocytes (%) (Auto) 9.1H, Eosinophils (%) (Auto) 0.1, Basophils (%) (Auto) 0.3, Neutrophils # (Auto) 7.4, Lymphocytes # (Auto) 0.9L, Monocytes # (Auto) 0.8, Eosinophils # (Auto) 0.0, Basophils # (Auto) 0.0, Nucleated Red Blood Cells % (auto) 0.0, Anion Gap 5L, Glomerular Filtration Rate > 60.0, Calcium Level 8.4L, Magnesium Level 1.7L CBC/BMP Laboratory Tests 04/27/20 05:55 Microbiology Microbiology 04/25/20 Blood Culture - Preliminary, Resulted No growth after 24 hours . All specim... 04/25/20 Respiratory Virus Panel (PCR) (DEMAR) - Final, Complete 04/25/20 Blood Culture - Preliminary, Resulted No growth after 24 hours . All specim... Discharge Medications Scheduled Amlodipine Besylate (Amlodipine Besylate) 5 Mg Tablet, 5 MG PO DAILY, (Reported) @ 1500 Apixaban (Eliquis) 5 Mg Tablet, 5 MG PO BID, (Reported) Calcium Carbonate/Vitamin D3 (Calcium 600-Vit D3 200 Tablet) 1 Tab Tab, 1 TAB PO DAILY, (Reported) @ 1500 Ipratropium/Albuterol Sulfate (Iprat-Albut 0.5-3(2.5) mg/3 ml) 3 Ml Ampul.neb, 1 VIAL NEB BID Levothyroxine Sodium (Synthroid) 50 Mcg Tablet, 50 MCG PO DAILY, (Reported) @ 1500 Metoprolol Tartrate (Metoprolol Tartrate) 25 Mg Tablet, 50 MG PO DAILY, (Reported) @ 1500 Multivitamins (Thera M Plus Tablet) 1 Each Tablet, 1 TAB PO DAILY, (Reported) @ 1500 Omeprazole (Omeprazole) 20 Mg Capsule.dr, 20 MG PO DAILY, (Reported) @ 1500 Potassium Chloride (Potassium Chloride) 10 Meq Tab.er.prt, 1 TAB PO DAILY Torsemide (Torsemide) 20 Mg Tablet, 1 TAB PO DAILY Vit A/Vit C/Vit E/Zinc/Copper (Preservision Areds Tablet) 1 Each Tablet, 1 TAB PO DAILY, (Reported) @ 1500 Scheduled PRN Acetaminophen (Acetaminophen) 325 Mg Tablet, 650 MG PO Q4H PRN for PAIN / FEVER, (Reported) Allergies Coded Allergies: prochlorperazine (Verified Adverse Reaction, Intermediate, RIGIDITY OF JAW, 07/05/19) cephalexin (Verified Adverse Reaction, Mild, N/V, 07/05/19) codeine (Verified Adverse Reaction, Mild, N/V, 07/05/19) lisinopril (Verified Adverse Reaction, Mild, INCREASES POTASSIUM LEVEL, 07/05/19) meperidine (Verified Adverse Reaction, Mild, INCREASED K, 07/05/19) FLAQUITO KUO MD Apr 27, 2020 12:00
== END 2020-04-27 14:56 | disposition home or self-care (01) | DRG 293 ==
LOC: M ED 12:50 → M MSPAV 17:25 → ENRESERV 17:45 → M MSPAV 18:46
PROVIDERS: ADMIT Internal Medicine Nephrology; ATTEND Internal Medicine Nephrology
DX: I50.33 Acute on chronic diastolic (congestive) heart failure (principal); E87.6 Hypokalemia; I27.20 Pulmonary hypertension, unspecified; E03.9 Hypothyroidism, unspecified; J44.9 Chronic obstructive pulmonary disease, unspecified; E83.42 Hypomagnesemia; I48.0 Paroxysmal atrial fibrillation; K21.9 Gastro-esophageal reflux disease without esophagitis; F17.200 Nicotine dependence, unspecified, uncomplicated; F10.10 Alcohol abuse, uncomplicated; I08.3 Combined rheumatic disorders of mitral, aortic and tricuspid valves; Z79.899 Other long term (current) drug therapy; Z88.8 Allergy status to other drugs, medicaments and biological substances; Z88.5 Allergy status to narcotic agent

== ENCOUNTER 2020-05-05 15:20 | Emergency (ER) | payer MEDICARE ==
[~2020-05-05] VITALS: Ht 160 cm; Wt 72.7 kg
[~2020-05-05 15:20] MED LIST changes: +DOK1CAP7; +ELIQ5TAB PO; +IPRA0.00 NEB; +OMEP-218 PO; +POTA10TA17 PO; +SYNT50TA PO; +TORS20TA2 PO
--- NOTE | 2020-05-05 16:03 | REP ---
INDICATION: fall injury on blood thinners. COMPARISON: Comparison CT study is from March 25, 2020.. TECHNIQUE: Helical scanning is acquired. 5 mm axial images were reformatted. Coronal MPR images were generated. FINDINGS: Bone window settings demonstrate an intact bony calvarium. There is no evidence of skull fracture or incidental bony calvarial lesion. The visualized paranasal sinuses appear clear. No intraorbital abnormality is seen. On soft tissue window setting images; the lateral, third, and fourth ventricles are normal in size and position. Recinos-white differentiation pattern is normal above and below the tentorium. There are is no evidence of intracranial hemorrhage. No mass, edema, infarction, or midline shift is seen. No extra-axial fluid collection is appreciated. Vascular calcification is again noted at the skull base. There is generalized volume loss moderate in degree. Mild small vessel changes are seen in the periventricular white matter. IMPRESSION: Vascular calcification and generalized volume loss. No skull fracture or intracranial injury. No acute intracranial abnormality.. <Electronically signed by Santiago Bond > 05/05/20 [id number]
--- NOTE | 2020-05-05 16:07 | REP ---
INDICATION: fall injury on blood thinners. COMPARISON: Comparison CT study is from January 01, 2009.. TECHNIQUE: Helical scanning is acquired and overlapping 2 mm high resolution axial images were generated and reviewed at bone and soft tissue window settings. Coronal and sagittal multiplanar re-formations images are generated. FINDINGS: There is no evidence of cervical spine element fracture. No skull base fracture is seen. Cervical vertebral body heights are preserved. Alignment is normal. Facet joints are normally aligned bilaterally at each cervical level on multiplanar re-formations images. There is no evidence of intraspinal or paraspinal hematoma. No extra vertebral abnormality is seen. There is bridging discogenic osteophyte formation fusing the cervical spine across the C 6 through T2 levels. This is similar but somewhat more pronounced than on the 2009 study. Fairly prominent discogenic osteophytes are noted at C4-5 and C5-6 as well. These are a little larger than on the prior study. There is moderate osteoarthritic facet hypertrophy in the mid cervical spine bilaterally. This is most pronounced on the left at C2-3 and see 4 5. 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 This is not traumatic. IMPRESSION: Advanced degenerative spondylosis changes. Discogenic bridging osteophytes fusing the lower cervical spine as above. No traumatic abnormality.. <Electronically signed by Santiago Bond > 05/05/20 [id number]
[2020-05-05] MEDS ORDERED: PERCOCET 5MG/325MG TAB PO ONE (16:25)
[2020-05-05] MEDS ORDERED: HYDR-3713 PO (16:37)
[2020-05-05 17:27] VITALS: BP 135/67
== END 2020-05-05 17:33 | disposition home or self-care (01) ==
LOC: M ED 15:20
DX: S00.83XA Contusion of other part of head, initial encounter (principal); S30.0XXA Contusion of lower back and pelvis, initial encounter; S20.219A Contusion of unspecified front wall of thorax, initial encounter; T14.8XXA Other injury of unspecified body region, initial encounter; W01.0XXA Fall on same level from slipping, tripping and stumbling without subsequent striking against object, initial encounter; Y92.019 Unspecified place in single-family (private) house as the place of occurrence of the external cause; Y93.9 Activity, unspecified; Y99.9 Unspecified external cause status; I11.9 Hypertensive heart disease without heart failure; M47.812 Spondylosis without myelopathy or radiculopathy, cervical region; M25.78 Osteophyte, vertebrae; J44.9 Chronic obstructive pulmonary disease, unspecified; Z88.1 Allergy status to other antibiotic agents; Z88.8 Allergy status to other drugs, medicaments and biological substances; Z79.899 Other long term (current) drug therapy; Z79.01 Long term (current) use of anticoagulants

== ENCOUNTER 2020-06-03 09:52 | Inpatient (IN) | payer MEDICARE ==
[~2020-06-03] VITALS: Ht 157.5 cm; Wt 51.7 kg
[~2020-06-03 09:52] MED LIST changes: -ACET-908 PO; +ACET-910 PO; +POTASSIUM CHLORIDE 10 MEQ SR TABLET PO SCH
[2020-06-03] MEDS ORDERED: BUPR150T12 PO (10:00)
--- NOTE | 2020-06-03 10:33 | REP ---
INDICATION: DYSPNEA/COUGH. COMPARISON: None. TECHNIQUE: SINGLE PORTABLE AP VIEW OF THE CHEST WAS PERFORMED. FINDINGS: THERE IS NO ACUTE INFILTRATE OR PULMONARY EDEMA. LUNGS ARE CLEAR. HEART IS NOT SIGNIFICANTLY ENLARGED. There is calcification of the thoracic aorta. The mediastinal silhouette is otherwise unremarkable. There is slight elevation of left hemidiaphragm. THE VISUALIZED OSSEOUS STRUCTURES ARE INTACT. IMPRESSION: NO ACUTE PULMONARY DISEASE. <Electronically signed by Amaury Recinos > 06/03/20 1022
[2020-06-03 10:47] LABS: BASO # 0.1 10^3/uL (0.0-0.2); BASO % 0.7 % (0.0-1.0); EOS % 0.3 % (0.0-3.0); HEMATOCRIT 32.8 % (36.0-47.0); HEMOGLOBIN 10.8 g/dl (12.0-15.5); LYMPH # 0.9 10^3/uL (1.5-5.0); LYMPH % 9.9 % (24.0-44.0); MEAN CORPUSCULAR HEMOGLOBIN 32.1 pg (27.0-33.0); MEAN CORPUSCULAR HGB CONC 32.9 g/dl (32.0-36.5); MEAN CORPUSCULAR VOLUME 97.6 fl (80.0-96.0); MONO % 10.8 % (2.0-8.0); NEUTROPHILS # 6.9 10^3/uL (1.5-8.5); NEUTROPHILS % 77.8 % (36.0-66.0); PLATELET COUNT, AUTOMATED 322 10^3/uL (150-450); RED BLOOD COUNT 3.36 10^6/uL (4.00-5.40); WHITE BLOOD COUNT 8.8 10^3/uL (4.0-10.0)
[2020-06-03 11:19] LABS: ALBUMIN 2.4 GM/DL (3.2-5.2); ALT/SGPT 27 U/L (12-78); BILIRUBIN,DIRECT 0.2 MG/DL (0.0-0.2); BILIRUBIN,TOTAL 0.4 MG/DL (0.2-1.0); BLOOD UREA NITROGEN 7 MG/DL (7-18); CALCIUM LEVEL 8.3 MG/DL (8.8-10.2); CARBON DIOXIDE LEVEL 30 MEQ/L (21-32); CHLORIDE LEVEL 92 MEQ/L (98-107); CREATININE FOR GFR 0.38 MG/DL (0.55-1.30); GLOMERULAR FILTRATION RATE > 60.0 (>39); GLUCOSE, FASTING 79 MG/DL (70-100); NT-PRO BNP 1874 PG/ML (<125); SODIUM LEVEL 131 MEQ/L (136-145); TOTAL PROTEIN 6.1 GM/DL (6.4-8.2)
[2020-06-03] MEDS ORDERED: TORS20TA2 PO (11:49)
[2020-06-03] MEDS ORDERED: IPRA0.00 NEB (11:49)
[2020-06-03] MEDS ORDERED: POTA10TA17 PO (11:49)
[2020-06-03] MEDS ORDERED: ACETAMINOPHEN 325 MG/10.15 ML UDC PO ONE (11:55)
[2020-06-03] MEDS ORDERED: POTASSIUM CHLORIDE 10 MEQ SR TABLET PO ONE (12:15)
[2020-06-03 12:49] LABS: CPK CREATINE PHOSPHOKINASE 25 U/L (26-192); TROPONIN I < 0.02 NG/ML (< 0.10)
[2020-06-03] MEDS ORDERED: LEVALBUTEROL 1.25 MG/0.5 ML CONCENTRATE NEB INH PRN (12:55)
[2020-06-03] MEDS ORDERED: LORazepam 1 MG TAB PO PRN (13:00)
[2020-06-03] MEDS ORDERED: NICOTINE POLACRILEX 2 MG GUM PO PRN (13:00)
[2020-06-03] MEDS ORDERED: metOLazone 5 MG TAB PO ONE (13:00)
[2020-06-03] MEDS ORDERED: DIGOXIN 0.25 MG TAB PO STA (13:02)
[2020-06-03] MEDS ORDERED: methylPREDNISolone 125MG 2ML VIAL IV ONE (13:15)
--- NOTE | 2020-06-03 13:27 | HPE ---
HISTORY AND PHYSICAL DATE OF ADMISSION: 06/03/2020 CHIEF COMPLAINT: Shortness of breath, lower extremity edema. HISTORY OF PRESENT ILLNESS: A 69-year-old female, recently admitted 04/25/2020 to 04/28/2020 for congestive heart failure (CHF) exacerbation, presents today with complaints of shortness of breath, dyspnea on exertion, paroxysmal nocturnal dyspnea, lower extremity edema, and about a 5-10 pound weight gain over the past month. Patient was seen by Dr. Contreras in the office and was found to have atrial fibrillation and is on chronic metoprolol 25 mg daily and Eliquis. Patient complains of dry cough without fever or chills but complains of occasional chest tightness and difficult to expectorate sputum. Patient continues to smoke a pack a day of cigarettes. Not oxygen dependent. 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 Continues to drink alcohol, two to three drinks daily. Due to the shortness of breath, patient has cut back slightly on her smoking. In the emergency room (ER) she was found to have elevated brain natriuretic peptide (BNP) level, but chest x-ray was negative for pulmonary edema or pneumonia. Hospitalist was called to admit the patient for cor pulmonale with lower extremity edema and shortness of breath. Previous echocardiogram shows ejection fraction of 55%. Cannot rule out severe pulmonary hypertension. Patient had no white count. Hemoglobin was stable. BNP level was 1874. Cardiac markers are still pending. MEDICAL HISTORY: 1. Chronic obstructive pulmonary disease (COPD), not home oxygen or steroid dependent. 2. Diastolic congestive heart failure, ejection fraction of 55%. 3. Probable severe pulmonary hypertension. 4. Mild mitral regurgitation. 5. Mild tricuspid regurgitation. 6. Alcohol abuse. 7. Tobacco abuse. 8. Hiatal hernia. 9. History of gastritis. 10. Hypertension. 11. Hyperlipidemia. 12. Hypothyroidism. 13. 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 14. Chronic atrial fibrillation. 15. Anxiety. PAST SURGICAL HISTORY: 1. Hysterectomy 30 years ago. 2. Tonsillectomy at the age of 17. 3. Urethroplasty. 4. Elbow surgery. ALLERGIES: PROCHLORPERAZINE, CEPHALEXIN, CODEINE, LISINOPRIL, MEPERIDINE. HOME MEDICATIONS: - ipratropium albuterol nebulizer twice a day - torsemide 20 daily - acetaminophen 650 every 4 as needed - Eliquis 5 mg twice a day - bupropion 150 daily - Synthroid 50 mcg daily - metoprolol 25 twice a day - omeprazole 20 daily - potassium 10 mEq daily - AREDS PreserVision one tablet daily SOCIAL HISTORY: Still smokes one pack a day. 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 Denies recreational drug use. Code status is DO NOT RESUSCITATE, DO NOT INTUBATE. Medical Orders for Life-Sustaining Treatment (MOLST) from has been signed. FAMILY HISTORY: Mother and father both at the age of 76. Father had coronary artery disease (CAD), myocardial infarction (NE), hypertension, diabetes, chronic kidney disease. Mother had liver disease, hypertension. Maternal grandmother with colon cancer. One brother from CAD, NE. One brother had Alzheimer's. Another brother with diabetes and CAD. REVIEW OF SYSTEMS: Per history of present illness (HPI). A 12-point system otherwise negative. PHYSICAL EXAMINATION: Temperature 97.7, pulse 90-101. On telemetry, atrial fibrillation, irregularly irregular. Respiratory rate of 20. Blood pressure 113/56, 95% on room air. GENERAL: Patient is awake, alert, oriented to person, place, and time, answering questions appropriately. She has patches of erythematous lesions on her face, forehead, bilateral cheeks. LUNGS: Diminished with faint expiratory wheezing without any rales or crackles. HEART: S1, S2, irregularly irregular, tachycardic. ABDOMEN: Soft, nontender, nondistended. EXTREMITIES: Pitting edema 2+ to the sacrum. Skin tears on the left knee. LABORATORY DATA: White count 8.8, hemoglobin 10.8, hematocrit 32.8, platelet count 322, 77% neutrophils. Sodium 131, potassium 3, chloride 92, bicarbonate 30, BUN 7, creatinine 0.38, glucose 79, calcium 8.3. Total bilirubin 0.4, direct bilirubin 0.2, AST 39, ALT 27, alkaline phosphatase 446. Cardiac markers are pending. BNP 1874. Total protein 6.1, albumin 2.4. Respiratory panel is negative for coronavirus. IMAGING STUDIES: Chest x-ray: Clear lungs. Heart is not enlarged. Mediastinal silhouette is unremarkable. Slight elevation of the left hemidiaphragm. No acute pulmonary disease. EKG: Atrial fibrillation, ventricular rate of 104. ASSESSMENT AND PLAN: This is a 69-year-old female, DO NOT RESUSCITATE, DO NOT INTUBATE, history of chronic obstructive pulmonary disease (COPD), chronic atrial fibrillation, congestive heart failure (CHF), diastolic dysfunction, mild pulmonary hypertension, actively smoking and drinking alcohol, presents to the emergency room with a 5-10 pound weight gain, increasing lower extremity edema as well as paroxysmal nocturnal dyspnea with dyspnea on exertion and now with rest. Patient will be admitted as an inpatient for 2 midnights for the following acute issues. 1. Acute CHF exacerbation, diastolic dysfunction/?cor pulmonale. Patient has clear lungs but has chronic lower extremity edema. Pulmonary hypertension noted on the echocardiogram. She will be given intravenous (IV) Lasix 40 every 6 hours, strict intake and output, daily weights, and 2-liter fluid restriction. Will need to monitor patient's sodium, potassium, magnesium, calcium, creatinine, and address accordingly. Cardiac markers will be cycled very 6 hours to rule out acute ischemic symptoms. 2. Mild COPD exacerbation with wheezing on exam. Dry cough, slightly increased over the past few days. Patient will be given Solu-Medrol, nebulizer treatments. No empiric antibiotics are needed. Obtain sputum culture if possible. Respiratory panel is negative. 3. Tobacco abuse. Tobacco cessation counseling. Nicotine patch. Patient is not interested in quitting at this time. 4. Alcohol abuse. Multivitamin, thiamine, folate. Clinical [place] Withdrawal Assessment (CIWA) protocol. 5. Anemia of chronic disease. No acute indications for red blood cells (RBC) transfusion. 6. Hypokalemia/hyponatremia due to chronic torsemide. Supplement potassium and monitor patient's sodium level. 7. 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 8. Chronic atrial fibrillation. Currently on metoprolol. If patient's mean arterial pressure (MAP) is less than 70, may need to use midodrine to increase blood pressure to allow for diuresis with Lasix. May need a dose of digoxin or amiodarone if patient's heart rate increases greater than 120. 9. Deep venous thrombosis (DVT) prophylaxis, on chronic Eliquis. 10. Code status. DO NOT RESUSCITATE, DO NOT INTUBATE. 11. Diet. A 2-gram sodium diet, 2-liter fluid restriction. ASSESSMENT: PLAN: MTDD
--- NOTE | 2020-06-03 13:29 | ECGEPIP ---
[facility] - ED Test Date: 2020-06-03 Pat Name: TRE BOYER Department: Room: - Gender: Female [employer] Professor: ISA : 1950 Requested By: Ryan Corado Order Number: [id number] Reading MD: Ryan Smith Measurements Intervals [place] Rate: 86 P: PA: QRS: 74 QRSD: 68 T: 44 QT: 368 QTc: 440 Interpretive Statements Atrial fibrillation with premature ventricular or aberrantly conducted complexes Low voltage QRS Septal infarct , age undetermined SIMILAR TO 04/25/20 Electronically Signed on 06-03-2020 13:28:52 EDT by Ryan Smith
[2020-06-03] MEDS ORDERED: LORazepam 2 MG TAB PO PRN (13:40)
[2020-06-03] MEDS ORDERED: PILL CUTTER 1 EACH XX ONE (13:45)
[2020-06-03] MEDS: buPROPion **XL** TABLET 150MG (WELLBUTRIN XL) PO SCH (13:56)
[2020-06-03] MEDS: NICOTINE 14 MG/24 HR TRANSDERMAL TD SCH (13:56)
[2020-06-03] MEDS: FUROSEMIDE 40MG/4ML VIAL (J1940) IV SCH ×2 (13:56→18:27)
[2020-06-03] MEDS: METOPROLOL TART 25 MG TABLET PO SCH ×2 (13:57→20:51)
[2020-06-03] MEDS: APIXABAN 5 MG TAB (ELIQUIS) PO SCH ×2 (13:57→20:51)
[2020-06-03] MEDS: MULTIVITAMINS/MINERALS THERAP 1 TAB PO SCH (13:58)
[2020-06-03] MEDS: THIAMINE 100 MG TAB PO SCH (13:59)
[2020-06-03] MEDS: FOLIC ACID 1 MG TAB PO SCH (13:59)
--- NOTE | 2020-06-03 14:35 | REP ---
INDICATION: R/O DVT B/L LE EDEMA. COMPARISON: None. TECHNIQUE: Bilateral lower extremity duplex venous ultrasound. FINDINGS: The deep veins are anechoic and fully compressible from the groin to the popliteal fossa in the left and right lower extremity. Color flow imaging is homogeneous. Spectral Doppler interrogation demonstrates intact respiratory variation in flow and normal manual augmentation of flow. There is no evidence of deep vein thrombosis. IMPRESSION: Negative bilateral lower extremity duplex venous ultrasound. No evidence of deep vein thrombosis. Superficial soft tissue edema is noted bilaterally in the lower extremities. <Electronically signed by Santiago Bond > 06/03/20 [id number]
[2020-06-03] MEDS: LEVALBUTEROL 1.25 MG/0.5 ML CONCENTRATE NEB INH SCH ×2 (15:06→19:42)
[2020-06-03 16:25] VITALS: BP 128/59
[2020-06-03] MEDS: OCUVITE 1 TAB PO SCH (16:33)
[2020-06-03] MEDS ORDERED: PILL CUTTER 1 EACH XX PRN (16:55)
[2020-06-03] MEDS: ACETAMINOPHEN TAB 650MG DOSE (2X325MG) PO PRN ×2 (17:23→22:11)
[2020-06-03 20:44] LABS: BLOOD UREA NITROGEN 9 MG/DL (7-18); CALCIUM LEVEL 8.3 MG/DL (8.8-10.2); CARBON DIOXIDE LEVEL 32 MEQ/L (21-32); CHLORIDE LEVEL 93 MEQ/L (98-107); CK-MB VALUE MASS 1.4 NG/ML (<3.6); CPK CREATINE PHOSPHOKINASE 21 U/L (26-192); CREATININE FOR GFR 0.78 MG/DL (0.55-1.30); GLOMERULAR FILTRATION RATE > 60.0 (>39); GLUCOSE, FASTING 295 MG/DL (70-100); MAGNESIUM LEVEL 1.4 MG/DL (1.8-2.4); MB/CK RELATIVE INDEX 6.67 (< OR =4); POTASSIUM SERUM 3.7 MEQ/L (3.5-5.1); SODIUM LEVEL 131 MEQ/L (136-145); TROPONIN I < 0.02 NG/ML (< 0.10)
[2020-06-03] MEDS: DIGOXIN 0.125 MG TAB PO SCH (20:53)
[2020-06-03 22:00] VITALS: BP 121/60
[2020-06-03] MEDS: VANICREAM MOISTURIZING SKIN CREAM 113GM TUBE TOP SCH (22:12)
[2020-06-03] MEDS: RAMELTEON 8 MG TAB (ROZEREM) PO PRN (23:08)
[2020-06-04] MEDS: LEVALBUTEROL 1.25 MG/0.5 ML CONCENTRATE NEB INH SCH ×6 (00:23→19:52)
[2020-06-04] MEDS: FUROSEMIDE 40MG/4ML VIAL (J1940) IV SCH ×4 (01:47→18:27)
[2020-06-04] MEDS: methylPREDNISolone 40MG 1ML VIAL IV SCH ×2 (01:48→13:15)
[2020-06-04] MEDS: DIGOXIN 0.125 MG TAB PO SCH (01:48)
[2020-06-04 06:00] VITALS: BP 126/62
[2020-06-04] MEDS: ACETAMINOPHEN TAB 650MG DOSE (2X325MG) PO PRN (06:00)
[2020-06-04] MEDS: LEVOTHYROXINE 50MCG TABLET (0.05MG) PO SCH (06:00)
--- NOTE | 2020-06-04 08:26 | IPNPDOC ---
Date Seen The patient was seen on 06/04/20. Progress Note SUBJECTIVE: no sob, cp. le improved. c/o b/l knee painw/o relief w 3 doses 650mg acetaminophen. 1.8l urine output overnight. no dizziness OBJECTIVE PHYSICAL EXAMINATION: VITAL SIGNS: Please see below. i/o weight reviewed GENERAL: Patient is awake, alert, oriented to person, place, and time, answering questions appropriately. She has patches of erythematous lesions on her face, forehead, bilateral cheeks.no tripod positioning LUNGS: AEBE no wheezing or rales HEART: S1, S2, irregularly irregular ABDOMEN: Soft, nontender, nondistended.+bs x 4quadrants EXTREMITIES: Pitting edema1+ improved .Skin tears on the left knee. LABORATORY DATA, IMAGING STUDIES, MICROBIOLOGY: Please see below. IMPRESSION: acute diastolic chf exacerbation w preserved EF Cor pulmonale? hypomagnesemia hypokalemia, resolved mild copd exacerbation Active Tobacco abuse Active Alcohol abuse Anemia of chronic disease. 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 dc in am repeat electrolytes later this afternoon monitor creatinine check xray b/l knees. qid tylenol. aat. pt/ot consulted. prn oxy-monitor for respiratory acidosis. dc plans in am. VS, I&O, 24H, Fishbone Vital Signs/I&O Vital Signs Date Time Temp Pulse Resp B/P (MAP) Pulse Ox O2 Delivery O2 Flow Rate FiO2 06/04/20 06:00 98.2 83 18 126/62 (83) 95 Room Air I&O- Last 24 Hours up to 6 AM 06/04/20 06:00 Intake Total 1320 ml Output Total 3750 ml Balance -2430 ml Laboratory Data 24H LABS Laboratory Tests 2 06/03/20 10:24: Immature Granulocyte % (Auto) 0.5, Neutrophils (%) (Auto) 77.8H, Lymphocytes (%) (Auto) 9.9L, Monocytes (%) (Auto) 10.8H, Eosinophils (%) (Auto) 0.3, Basophils (%) (Auto) 0.7, Neutrophils # (Auto) 6.9, Lymphocytes # (Auto) 0.9L, Monocytes # (Auto) 1.0H, Eosinophils # (Auto) 0.0, Basophils # (Auto) 0.1, Nucleated Red Blood Cells % (auto) 0.0, Anion Gap 9, Glomerular Filtration Rate > 60.0, Calcium Level 8.3L, Total Bilirubin 0.4, Direct Bilirubin 0.2, Aspartate Amino Transf (AST/SGOT) 39H, Alanine Aminotransferase (ALT/SGPT) 27, Alkaline Phosphatase 446H, Total Creatine Kinase 25L, Creatine Kinase MB 2.0, Creatine Kinase MB Relative Index 8.00H, Troponin I < 0.02, CY-Kjf-L-Type Natriuretic Peptide 1874H, Total Protein 6.1L, Albumin 2.4L, Albumin/Globulin Ratio 0.6L 06/03/20 19:52: Anion Gap 6L, Glomerular Filtration Rate > 60.0, Calcium Level 8.3L, Total Creatine Kinase 21L, Creatine Kinase MB 1.4, Creatine Kinase MB Relative Index 6.67H, Troponin I < 0.02, Magnesium Level 1.4L 06/04/20 05:42: Digoxin Level 0.9 CBC/BMP Laboratory Tests 06/03/20 10:24 06/03/20 19:52 Microbiology Microbiology 06/03/20 Respiratory Virus Panel (PCR) ([facility]) - Final, Complete ATIF DUVAL MD Jun 04, 2020 08:21
[2020-06-04] MEDS ORDERED: oxyCODONE 5MG TAB PO ONE (09:00)
[2020-06-04] MEDS ORDERED: MAG SULF 1GM/100ML (MAG RUN) 1 GM in IV 1 EA IV ONE ×2 (09:00→17:25)
[2020-06-04] MEDS ORDERED: POTASSIUM CHLORIDE 10 MEQ SR TABLET PO SCH (09:00)
[2020-06-04] MEDS ORDERED: metOLazone 5 MG TAB PO ONE ×2 (09:00→17:20)
--- NOTE | 2020-06-04 09:19 | REP ---
INDICATION: b/l knee pain COMPARISON: None. TECHNIQUE: Bilateral AP and lateral views of knees. FINDINGS: There is no evidence of acute fracture, dislocation, or intrinsic bone disease.There is very mild joint space narrowing diffusely bilaterally. Vascular calcifications are seen in the posterior soft tissues bilaterally. IMPRESSION: No fracture or dislocation. Mild degenerative changes. <Electronically signed by Amaury Recinos > 06/04/20 0917
[2020-06-04] MEDS: FUROSEMIDE 40MG/4ML VIAL (J1940) IV ONE ×2 (10:19→11:30)
[2020-06-04] MEDS: FOLIC ACID 1 MG TAB PO SCH (10:20)
[2020-06-04] MEDS: NICOTINE 14 MG/24 HR TRANSDERMAL TD SCH (10:20)
[2020-06-04] MEDS: OCUVITE 1 TAB PO SCH (10:20)
[2020-06-04] MEDS: MULTIVITAMINS/MINERALS THERAP 1 TAB PO SCH (10:21)
[2020-06-04] MEDS: THIAMINE 100 MG TAB PO SCH (10:22)
[2020-06-04] MEDS: OMEPRAZOLE 20 MG CAP PO SCH (10:22)
[2020-06-04] MEDS: buPROPion **XL** TABLET 150MG (WELLBUTRIN XL) PO SCH (10:22)
[2020-06-04] MEDS: MAGNESIUM OXIDE 400MG TAB (MAG-OX) PO SCH ×2 (10:23→20:33)
[2020-06-04] MEDS: METOPROLOL TART 25 MG TABLET PO SCH ×2 (10:23→20:32)
[2020-06-04] MEDS: DIGOXIN 0.25 MG TAB PO SCH (10:23)
[2020-06-04] MEDS: APIXABAN 5 MG TAB (ELIQUIS) PO SCH ×2 (10:24→20:32)
[2020-06-04] MEDS: VANICREAM MOISTURIZING SKIN CREAM 113GM TUBE TOP SCH ×2 (10:25→20:38)
[2020-06-04] MEDS ORDERED: oxyCODONE 5MG TAB PO PRN (12:00)
[2020-06-04] MEDS: ACETAMINOPHEN 500 MG TAB PO SCH ×3 (13:15→20:33)
[2020-06-04 14:00] VITALS: BP 127/54
[2020-06-04 17:04] LABS: BLOOD UREA NITROGEN 14 MG/DL (7-18); CALCIUM LEVEL 9.2 MG/DL (8.8-10.2); CARBON DIOXIDE LEVEL 36 MEQ/L (21-32); CHLORIDE LEVEL 88 MEQ/L (98-107); CREATININE FOR GFR 0.67 MG/DL (0.55-1.30); FREE THYROXINE INDEX 2.3 % (1.3-4.8); GLOMERULAR FILTRATION RATE > 60.0 (>39); GLUCOSE, FASTING 224 MG/DL (70-100); MAGNESIUM LEVEL 1.8 MG/DL (1.8-2.4); SODIUM LEVEL 131 MEQ/L (136-145); T UPTAKE 39 % (30-39)
[2020-06-04] MEDS ORDERED: POTASSIUM CHLORIDE 10 MEQ SR TABLET PO ONE (17:20)
[2020-06-04 22:00] VITALS: BP 126/56
[2020-06-05] MEDS: LEVALBUTEROL 1.25 MG/0.5 ML CONCENTRATE NEB INH SCH ×4 (00:01→11:09)
[2020-06-05] MEDS: RAMELTEON 8 MG TAB (ROZEREM) PO PRN (00:49)
[2020-06-05] MEDS: LEVOTHYROXINE 50MCG TABLET (0.05MG) PO SCH (05:37)
[2020-06-05 06:00] VITALS: BP 126/58
[2020-06-05 06:44] LABS: BLOOD UREA NITROGEN 15 MG/DL (7-18); CALCIUM LEVEL 9.4 MG/DL (8.8-10.2); CARBON DIOXIDE LEVEL 36 MEQ/L (21-32); CHLORIDE LEVEL 89 MEQ/L (98-107); CREATININE FOR GFR 0.57 MG/DL (0.55-1.30); DIGOXIN LEVEL 1.2 NG/ML (0.5-2.0); GLOMERULAR FILTRATION RATE > 60.0 (>39); GLUCOSE, FASTING 87 MG/DL (70-100); POTASSIUM SERUM 3.4 MEQ/L (3.5-5.1); SODIUM LEVEL 130 MEQ/L (136-145)
[2020-06-05] MEDS ORDERED: POTASSIUM CHLORIDE 10 MEQ SR TABLET PO ONE (08:15)
[2020-06-05] MEDS ORDERED: POTA20TA6 PO (08:18)
[2020-06-05] MEDS ORDERED: LANO125T4 PO (08:18)
[2020-06-05] MEDS ORDERED: PRED10TA2 PO (08:18)
[2020-06-05] MEDS ORDERED: POTASSIUM CHLORIDE 10 MEQ SR TABLET PO SCH (09:00)
[2020-06-05] MEDS ORDERED: predniSONE 20 MG TAB PO SCH (09:00)
[2020-06-05] MEDS: NICOTINE 14 MG/24 HR TRANSDERMAL TD SCH (09:02)
[2020-06-05] MEDS: OMEPRAZOLE 20 MG CAP PO SCH (09:03)
[2020-06-05] MEDS: buPROPion **XL** TABLET 150MG (WELLBUTRIN XL) PO SCH (09:03)
[2020-06-05] MEDS: OCUVITE 1 TAB PO SCH (09:03)
[2020-06-05] MEDS: APIXABAN 5 MG TAB (ELIQUIS) PO SCH (09:03)
[2020-06-05] MEDS: FOLIC ACID 1 MG TAB PO SCH (09:03)
[2020-06-05] MEDS: THIAMINE 100 MG TAB PO SCH (09:03)
[2020-06-05] MEDS: FUROSEMIDE 40MG/4ML VIAL (J1940) IV SCH (09:03)
[2020-06-05] MEDS: ACETAMINOPHEN 500 MG TAB PO SCH (09:04)
[2020-06-05] MEDS: MULTIVITAMINS/MINERALS THERAP 1 TAB PO SCH (09:04)
[2020-06-05] MEDS: DIGOXIN 0.25 MG TAB PO SCH (09:04)
[2020-06-05 09:05] VITALS: BP 128/58
[2020-06-05] MEDS: MAGNESIUM OXIDE 400MG TAB (MAG-OX) PO SCH (09:05)
[2020-06-05] MEDS: METOPROLOL TART 25 MG TABLET PO SCH (09:05)
[2020-06-05] MEDS: VANICREAM MOISTURIZING SKIN CREAM 113GM TUBE TOP SCH (09:05)
--- NOTE | 2020-06-05 13:58 | DSES ---
DISCHARGE SUMMARY DATE OF ADMISSION: 06/04/2020 DATE OF DISCHARGE: 06/05/2020 PRIMARY DISCHARGE DIAGNOSIS: 1. Chronic atrial fibrillation with rapid ventricular rate. 2. Acute diastolic CHF exacerbation with preserved systolic function with possible cor pulmonale. 3. Hypomagnesemia. 4. Hypokalemia. 5. Mild COPD exacerbation. 6. Active tobacco abuse. 7. Active alcohol abuse. 8. Anemia of chronic disease. 9. Pulmonary cachexia with protein calorie malnutrition, albumin of 2.4, body mass index 21.7. DISCHARGE MEDICATIONS: 1. Prednisone taper. 2. Potassium 20 mEq daily. 3. Digoxin 125 mcg daily. 4. Acetaminophen 650 q. 4 as needed. 5. Eliquis 5 b.i.d. 6. Bupropion 150 daily. 7. Ipratropium Albuterol one nebulizer b.i.d. 8. Synthroid 50 mcg q.a.m. 9. Metoprolol 25 b.i.d. 10.Omeprazole 20 daily. 11.Torsemide 20 daily. 12.Preservision AREDS one tablet daily. DISCHARGE INSTRUCTIONS: A 2 liter fluid restriction, strict I and O's, call your doctor if 2 pound weight gain or more. HOSPITAL COURSE: This is a 69-year-old female with a history of diastolic heart failure who presented with shortness of breath, dyspnea on exertion, increasing lower extremity edema and 5 to 10 pound weight gain. Patient denied any palpitations but complained of some chest discomfort when she came. She was found to have atrial fibrillation with RVR, ventricular rate of 120s on telemetry and EKG, given a dose of Digoxin, continued on her metoprolol 25 mg b.i.d. and due to wheezing on examination the patient was also treated for COPD exacerbation, IV Solu-Medrol as well as diuresis with intravenous Lasix q. 6 hourly. Patient's admission weight was 53.8 kilos, discharged 51.7 kg, on IV Lasix had remained net negative balance of -1.2 liters on 06/03, -2.5 liters on 06/04 with improvement in lower extremity edema. Cardiac markers were negative. Patient's chest discomfort subsided. She was anemic with a hemoglobin of 10 but no overt GI bleed. Due to Lasix, patient had episodes of low potassium which was supplemented with K-Dur as well as a low magnesium of 1.4, supplemented with magnesium sulfate. Troponins were negative x2 sets. Patient passed home safety evaluation. Respiratory panel was negative. Due to bilateral lower extremity edema, bilateral venous Dopplers were obtained which showed negative DVT. Knee x-ray was performed due to chronic pain which showed no acute fracture or dislocation, mild degenerative changes. PHYSICAL EXAMINATION: VITAL SIGNS: On discharge, temperature 98.4, pulse 83, respiratory rate 18, blood pressure 126/58, 95% on room air. GENERAL: Patient is awake, alert and oriented. No conversational dyspnea. HEENT: No JVD or thyromegaly. Patient has erythematous patches on her face, forehead, bilateral cheeks. No cervical lymphadenopathy. Dry mucous membranes. LUNGS: Clear to auscultation. No wheezes, rales or rhonchi. HEART: S1 and S2, irregularly irregular but not tachycardic. ABDOMEN: Soft, nontender, nondistended. Positive bowel sounds x4 quadrants. EXTREMITIES: 1+ pitting edema of bilateral lower extremities. LABORATORY DATA: White count 8.8, hemoglobin 10, hematocrit 32, platelet count 322,000. Sodium 130, potassium 3.4, chloride 89, bicarbonate 36, BUN 15, creatinine 0.57, glucose of 87. Microbiology: Respiratory panel, Coronavirus negative. Venous Dopplers of lower extremities on 06/03: No DVT. TIME SPENT ON DISCHARGE: 30 minutes MTDD
[2020-06-06] MEDS ORDERED: POTA20EL PO (10:40)
== END 2020-06-05 12:25 | disposition home or self-care (01) | DRG 292 ==
LOC: M ED 09:52 → M ED INP 12:04 → ENRESERV 14:59 → M MSPAV 16:22 → OBSVTOIN 06-04 08:23
PROVIDERS: ADMIT General Practice; ATTEND General Practice
DX: I11.0 Hypertensive heart disease with heart failure (principal); J44.1 Chronic obstructive pulmonary disease with (acute) exacerbation; I48.20 Chronic atrial fibrillation, unspecified; E87.1 Hypo-osmolality and hyponatremia; R64 Cachexia; E46 Unspecified protein-calorie malnutrition; I50.33 Acute on chronic diastolic (congestive) heart failure; I27.20 Pulmonary hypertension, unspecified; Z72.0 Tobacco use; E87.6 Hypokalemia; I27.81 Cor pulmonale (chronic); E83.42 Hypomagnesemia; F17.200 Nicotine dependence, unspecified, uncomplicated; F10.10 Alcohol abuse, uncomplicated; D64.9 Anemia, unspecified; Z68.21 Body mass index [BMI] 21.0-21.9, adult; Z79.899 Other long term (current) drug therapy; I08.1 Rheumatic disorders of both mitral and tricuspid valves; K44.9 Diaphragmatic hernia without obstruction or gangrene; E78.5 Hyperlipidemia, unspecified; E03.9 Hypothyroidism, unspecified; Z85.828 Personal history of other malignant neoplasm of skin; F41.9 Anxiety disorder, unspecified; Z88.5 Allergy status to narcotic agent; Z88.8 Allergy status to other drugs, medicaments and biological substances; Z79.01 Long term (current) use of anticoagulants; Z66 Do not resuscitate

== ENCOUNTER 2020-08-29 17:06 | Inpatient (IN) | payer MEDICARE ==
[~2020-08-29] VITALS: Ht 157.5 cm; Wt 51.9 kg
[~2020-08-29 17:06] MED LIST changes: +BUPR150T12 PO; +EQ M2CRE2 PV; +ERGO500029 PO; +LANO125T4 PO; -MICO7CR PV; +POTA20EL PO; +POTA20TA6 PO; -POTASSIUM CHLORIDE 10 MEQ SR TABLET PO SCH; -VITA50005 PO
[2020-08-29] MEDS ORDERED: ALBU8.5H PO (17:30)
[2020-08-29] MEDS ORDERED: POTA20TA6 PO (17:30)
[2020-08-29] MEDS ORDERED: AMLO1TAB24 PO (17:30)
[2020-08-29] MEDS ORDERED: IPRATROPIUM 0.5MG/ALBUTEROL 2.5MG INH SOL UD 3ML (DUONEB) NEB ONE (17:50)
[2020-08-29 18:18] LABS: BASO % 0.2 % (0.0-1.0); EOS % 0.1 % (0.0-3.0); HEMATOCRIT 33.7 % (36.0-47.0); HEMOGLOBIN 11.8 g/dl (12.0-15.5); LYMPH # 0.4 10^3/uL (1.5-5.0); LYMPH % 4.2 % (24.0-44.0); MEAN CORPUSCULAR HEMOGLOBIN 30.3 pg (27.0-33.0); MEAN CORPUSCULAR VOLUME 86.6 fl (80.0-96.0); MONO # 0.7 10^3/uL (0.0-0.8); MONO % 6.9 % (2.0-8.0); NEUTROPHILS # 9.4 10^3/uL (1.5-8.5); NEUTROPHILS % 88.2 % (36.0-66.0); PLATELET COUNT, AUTOMATED 413 10^3/uL (150-450); RED BLOOD COUNT 3.89 10^6/uL (4.00-5.40); WHITE BLOOD COUNT 10.6 10^3/uL (4.0-10.0)
--- NOTE | 2020-08-29 18:19 | REP ---
INDICATION: DYSPNEA/COUGH. COMPARISON: Comparison chest x-ray June 03, 2020. TECHNIQUE: Portable upright AP chest radiograph. FINDINGS: Cardiomegaly is observed. Pulmonary vascular cephalization is seen. Interstitial markings are diffusely prominent consistent with mild interstitial edema. No pleural effusion is seen. The EKG electrodes are noted. No bony abnormality is seen.. IMPRESSION: CHF pattern with mild interstitial edema and vascular congestion.. <Electronically signed by Santiago Bond > 08/29/20 [id number]
[2020-08-29 18:58] LABS: ALT/SGPT 28 U/L (12-78); BILIRUBIN,DIRECT 0.2 MG/DL (0.0-0.2); BILIRUBIN,TOTAL 0.5 MG/DL (0.2-1.0); BLOOD UREA NITROGEN 9 MG/DL (7-18); CALCIUM LEVEL 8.6 MG/DL (8.8-10.2); CARBON DIOXIDE LEVEL 28 MEQ/L (21-32); CHLORIDE LEVEL 82 MEQ/L (98-107); CK-MB VALUE MASS 8.1 NG/ML (<3.6); CPK CREATINE PHOSPHOKINASE 79 U/L (26-192); CREATININE FOR GFR 0.36 MG/DL (0.55-1.30); GLOMERULAR FILTRATION RATE > 60.0 (>39); GLUCOSE, FASTING 111 MG/DL (70-100); MB/CK RELATIVE INDEX 10.25 (< OR =4); POTASSIUM SERUM 4.6 MEQ/L (3.5-5.1); SODIUM LEVEL 121 MEQ/L (136-145); TOTAL PROTEIN 6.5 GM/DL (6.4-8.2); TROPONIN I < 0.02 NG/ML (< 0.10)
[2020-08-29] MEDS ORDERED: methylPREDNISolone 125MG 2ML VIAL IV ONE (19:45)
[2020-08-29] MEDS ORDERED: ENOXAPARIN 40MG/0.4ML SYRINGE (J1650 PER 10MG) SC ONE (20:05)
[2020-08-29] MEDS ORDERED: LEVALBUTEROL 1.25 MG/0.5 ML CONCENTRATE NEB INH PRN (20:05)
[2020-08-29] MEDS ORDERED: DIGO0.123 PO (20:11)
[2020-08-29] MEDS: LEVALBUTEROL 1.25 MG/0.5 ML CONCENTRATE NEB INH SCH (23:57)
[2020-08-30] VITALS (7 sets, daily range): BP systolic 128–159; BP diastolic 54–78
[2020-08-30] MEDS ORDERED: NICOTINE POLACRILEX 2 MG GUM PO PRN
[2020-08-30] MEDS ORDERED: METOPROLOL TART 25 MG TABLET PO ONE (00:15)
--- NOTE | 2020-08-30 00:21 | HPEPDOC ---
[facility] Medical History & Physical Date of Admission Aug 29, 2020 Date of Service: Aug 29, 2020 History and Physical CHIEF COMPLAINT: Shortness of breath for 3 days HISTORY OF PRESENT ILLNESS: 70-year-old female with history of diastolic congestive heart failure ejection fraction of 55% ,COPD not on home oxygen or steroid-dependent, probable severe pulmonary hypertension, ongoing alcohol and tobacco abuse refuses to quit, chronic atrial fibrillation on anticoagulation, medical noncompliance with dietary and fluid restriction for heart failure presents to the emergency room with 3-day history of worsening shortness of breath and a dry cough ,difficult to expectorate sputum ,saturating 93% on room air , without fever ,chills ,headache .patient felt slightly nauseated today ,but did not vomit .she complains of exertional dyspnea, unable to walk 3 feet without having to stop and take a deep breath .she has three pillow orthopnea generalized weakness and easy fatigability with ambulation. she denies any nocturia, paroxysmal nocturnal dyspnea. her dry weight is usually around 115 pounds. during her previous adm ission in May 2020, her discharge weight was 113.7 pounds. she currently weighs 117.9 pounds in the ER today. She otherwise denies any chest pain, pressure, tightness, lightheadedness ,dizziness, near-syncope, or pleuritic chest pain. She denies any bright red blood per rectum melena or black tarry stools fatigue changes in bowel habits sleep anxiety depression she complains today of bilateral knee pain and back pain due to stretcher in the ER which is uncomfortable. She requests her Tylenol at bedtime. In the ER, patient was found to have moderate respiratory distress with chronic A. fib with RVR ventricle rate of 120 to 140 bpm but hemodynamically stable with systolic pressure 160 mmHg, tachypneic and tachycardic hyponatremic with sodium of 127 abnormal cardiac markers with elevated CK-MB relative index and chest x- ray showing CHF pattern. PAST MEDICAL HISTORY: diastolic congestive heart failure ejection fraction of 55% ,COPD not on home oxygen or steroid-dependent, probable severe pulmonary hypertension, ongoing alcohol and tobacco abuse refuses to quit, chronic atrial fibrillation on anticoagulation, medical noncompliance with dietary and fluid restriction for heart failure, mild mitral regurg mild tricuspid regurg hiatal hernia gastritis hypertension hyperlipidemia hypothyroidism squamous cell cancer of the face x2 anxiety PAST SURGICAL HISTORY: Hysterectomy 30 years ago tonsillectomy at the age of 17 urethroplasty elbow surgery SOCIAL HISTORY: Refuses to quit smoking and alcohol abuse drinks three mary daily 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 REVIEW OF SYSTEMS: 10 point review of system negative aside from positive findings on HPI . HOME MEDICATIONS: Please see below. PHYSICAL EXAMINATION: VITAL SIGNS: See below GENERAL APPEARANCE: Moderate respiratory distress with 4-5 word conversational dyspnea no pallor icterus positive use of respiratory accessory muscles HEENT: Cachectic with bitemporal wasting patches of erythematous lesions on the face forehead bilateral cheeks dry skin Positive jugular venous distention no thyromegaly or cervical lymphadenopathy no carotid bruits noted no stridor no tracheal deviation Positive use of respiratory accessory muscles with prolonged expiration.No nasal flaring CARDIOVASCULAR: S1-S2 irregularly irregular tachycardic very faint 2 out of 6 systolic ejection murmur at the apex and left lower sternal border Right ventricular heave LUNGS: Diminished breath sounds prolonged expiration bilateral coarse rhonchi Rales bilaterally positive use of accessory muscles Conversational dyspnea 4-5 words. ABDOMEN: Positive bowel sounds soft nontender nondistended no rebound guarding no hepatosplenomegaly EXTREMITIES: No cyanosis clubbing or pitting edema LABORATORY DATA: See below. IMAGING: See below MICROBIOLOGY: Please see below. ASSESSMENT: 70-year-old female DO NOT RESUSCITATE DO NOT INTUBATE with history of chronic obstructive pulmonary disease not oxygen or steroid-dependent, diastolic congestive heart failure, EF of 55%, probable severe pulmonary hypertension, mild mitral regurg mild tricuspid regurg, ongoing tobacco and alcohol abuse refusing to quit or cut down, anxiety presents to the emergency room with 3-day history of worsening shortness of breath with increase in weight of about 4 pounds with usual weight of 115-1 17 but discharged in May with a weight of 113 and current weight of 117 pounds due to medical noncompliance with salt and fluid restriction . In the ER she was found to have hyponatremia, acute CHF and mild COPD exacerbation. Patient will be admitted as an inpatient for two midnights for the following acute issues: Acute CHF exacerbation, diastolic dysfunction with preserved systolic ejection fraction 55% -Due to medical noncompliance with salt and water restriction, and due to uncontrolled atrial fibrillation with rapid ventricular response -Lasix 40 mg IV every 6 hourly hold for systolic pressure less than 110 mmHg or creatinine greater than 1.5. Monitor for hypokalemia, hypomagnesemia, hypocalcemia, and supplement if needed. -Telemetry monitoring. Cycle cardiac markers every 8 hourly to rule out acute coronary syndrome. Strict I's and O's Daily weights and 2 L fluid restriction. Atrial fibrillation with rapid ventricular response -Resume on home medications metoprolol 25 mg twice daily. -If heart rate continues to be greater than 120 bpm patient's metoprolol may be changed to 25 mg p.o. every 6 hourly for better rate control -She may be resumed on her home dose of Eliquis renally dosed if needed by pharmacy -She appears to be hemodynamic dynamically stable at this time -if patient's blood pressure were to decrease less than a mean arterial pressure of 70, she may need midodrine 5 to 10 mg 3 times daily to increase her systolic pressure since we cannot give intravenous fluids due to ongoing heart failure, OR patient may need transfer to PCU for IV digoxin or IV amiodarone for better rate control if systolic pressure is low. -Due to history of gastritis will need to monitor for any GI bleed, and continue PPI for now. Will need to avoid nonsteroidal anti-inflammatories to decrease risk of GI bleed. Mild COPD exacerbation -Resume bronchodilators and rapid tapering of IV Solu-Medrol to oral prednisone renally dosed Levaquin for now -Supplemental oxygen if needed to keep saturations above 90% -Respiratory panel was negative -Incentive spirometry and Acapella as needed Hyponatremia -Poor prognostic indicator of acute CHF -Asymptomatic without headache seizure activity confusion changes in vision -Repeat basic metabolic panel -Treat underlying CHF Probable severe pulmonary hypertension -Complicating care Mild mitral regurg/mild tricuspid regurg -Due to severe pulmonary hypertension -Complicating care Hypertension, uncontrolled -Due to shortness of breath from CHF and COPD exacerbation and pain form bilateral knee osteoarthritis -Treat underlying condition resume home medications titrate BP meds if needed for better control Dyslipidemia -Check lipid profile Ongoing alcohol abuse -Alcohol cessation counseling provided patient refuses to quit -CIWA protocol with thiamine folate supplementation Ongoing tobacco abuse -Tobacco cessation counseling provided -As needed nicotine gum Hiatal hernia/gastritis -PPI Anxiety -Chronic Bilateral knee pain due to degenerative joint disease -Tylenol -Avoid nonsteroidal anti-inflammatories due to active congestive heart failure exacerbation -Avoid nonsteroidal anti-inflammatories due to increased risk of GI bleed with oral anticoagulation being taken for atrial fibrillation as well as history of gastritis in the past with hiatal hernia Pulmonary cachexia -Pulmonary rehab as outpatient Diet: 2 g sodium CODE STATUS DO NOT RESUSCITATE DO NOT INTUBATE DVT prophylaxis on Eliquis renally dosed Vital Signs Vital Signs Date Time Temp Pulse Resp B/P (MAP) Pulse Ox O2 Delivery O2 Flow Rate FiO2 08/29/20 23:22 85 94 08/29/20 22:52 Nasal Cannula 2.0 08/29/20 20:36 20 08/29/20 18:56 178/84 (115) 08/29/20 17:39 96.9 Laboratory Data Labs 24H Laboratory Tests 2 08/29/20 18:07: Immature Granulocyte % (Auto) 0.4, Neutrophils (%) (Auto) 88.2H, Lymphocytes (%) (Auto) 4.2L, Monocytes (%) (Auto) 6.9, Eosinophils (%) (Auto) 0.1, Basophils (%) (Auto) 0.2, Neutrophils # (Auto) 9.4H, Lymphocytes # (Auto) 0.4L, Monocytes # (Auto) 0.7, Eosinophils # (Auto) 0.0, Basophils # (Auto) 0.0, Nucleated Red Blood Cells % (auto) 0.0, Anion Gap 11, Glomerular Filtration Rate > 60.0, Calcium Level 8.6L, Total Bilirubin 0.5, Direct Bilirubin 0.2, Aspartate Amino Transf (AST/SGOT) 37, Alanine Aminotransferase (ALT/SGPT) 28, Alkaline Phosphatase 322H, Total Creatine Kinase 79, Creatine Kinase MB 8.1H, Creatine Kinase MB Relative Index 10.25H, Troponin I < 0.02, Total Protein 6.5, Albumin 3.0L, Albumin/Globulin Ratio 0.9L 08/29/20 21:27: POC pH (Misc Panel) 7.437, POC Base Excess (Misc Panel) 5.0H, POC Saturated Percent O2 (Misc) 95, POC pO2 (Misc Panel) 71.0L, POC pCO2 (Misc Panel) 42.7, POC HCO3 (Misc Panel) 28.8H, POC Total CO2 (Misc Panel) 30.0H CBC/BMP Laboratory Tests 08/29/20 18:07 Microbiology Microbiology 08/29/20 Respiratory Virus Panel (PCR) ([facility]) - Final, Complete Human Rhinovirus/Enterovirus Home Medications Scheduled Amlodipine Besylate (Amlodipine Besylate) 5 Mg Tablet, 5 MG PO DAILY Apixaban (Eliquis) 5 Mg Tablet, 5 MG PO BID Bupropion Hcl (Bupropion Xl) 150 Mg Tab.er.24h, 150 MG PO DAILY Digoxin (Digoxin) 125 Mcg Tablet, 125 MCG PO DAILY Ipratropium/Albuterol Sulfate (Iprat-Albut 0.5-3(2.5) mg/3 ml) 3 Ml Ampul.neb, 1 VIAL NEB BID Levothyroxine Sodium (Synthroid) 50 Mcg Tablet, 50 MCG PO QAM Metoprolol Tartrate (Metoprolol Tartrate) 25 Mg Tablet, 25 MG PO BID Omeprazole (Omeprazole) 20 Mg Capsule.dr, 20 MG PO DAILY Potassium Chloride (Potassium Chloride) 20 Meq Tab.er.prt, 20 MEQ PO DAILY dissolve in water Torsemide (Torsemide) 20 Mg Tablet, 30 MG PO DAILY Vit A/Vit C/Vit E/Zinc/Copper (Preservision Areds Tablet) 1 Each Tablet, 1 TAB PO DAILY Scheduled PRN Acetaminophen (Acetaminophen) 325 Mg Tablet, 650 MG PO Q4H PRN for PAIN / FEVER Albuterol Sulfate (Albuterol Sulfate Hfa) 8.5 Gm Hfa.aer.ad, 1 PUFF PO Q4H PRN for SHORTNESS OF BREATH Allergies Coded Allergies: prochlorperazine (Verified Adverse Reaction, Severe, RIGIDITY OF JAW, 08/29/20) cephalexin (Verified Adverse Reaction, Mild, N/V, 08/29/20) codeine (Verified Adverse Reaction, Mild, N/V, 08/29/20) lisinopril (Verified Adverse Reaction, Mild, INCREASES POTASSIUM LEVEL, 08/29/20) meperidine (Verified Adverse Reaction, Mild, INCREASED K, 08/29/20) A-FIB/CHADSVASC A-FIB History Current/History of A-Fib/PAF?: Yes Current PO Anticoag Therapy: Yes Age/Risk Factor Scoring CHADSVASC: CHADSVASC Response (Comments) Value Age Risk Factor Age 65-74 years old 1 Gender Risk Factor Female 1 Hx of CHF Yes 1 Hx of HTN Yes 1 Hx of Stroke/TIA/or VTE No 0 Hx of Diabetes No 0 Hx of Vascular Disease No 0 Total 4 Treatment Treatment ordered: Apixaban ATIF DUVAL MD Aug 30, 2020 00:20
[2020-08-30] MEDS: LORazepam 2 MG TAB PO PRN ×2 (00:58→12:00)
[2020-08-30] MEDS: THIAMINE 100 MG TAB PO SCH ×3 (01:01→22:08)
[2020-08-30] MEDS: ACETAMINOPHEN TAB 650MG DOSE (2X325MG) PO PRN ×2 (01:02→22:08)
[2020-08-30] MEDS ORDERED: methylPREDNISolone 125MG 2ML VIAL IV SCH (03:30)
[2020-08-30] MEDS: LEVALBUTEROL 1.25 MG/0.5 ML CONCENTRATE NEB INH SCH ×2 (04:00→07:04)
[2020-08-30] MEDS: LEVOTHYROXINE 50MCG TABLET (0.05MG) PO SCH (05:39)
[2020-08-30] MEDS ORDERED: LevoFLOXacin 750 MG TABLET PO SCH (06:00)
[2020-08-30 06:17] LABS: HEMATOCRIT 33.7 % (36.0-47.0); HEMOGLOBIN 11.4 g/dl (12.0-15.5); LYMPH # 0.2 10^3/uL (1.5-5.0); LYMPH % 5.9 % (24.0-44.0); MEAN CORPUSCULAR HEMOGLOBIN 29.8 pg (27.0-33.0); MEAN CORPUSCULAR HGB CONC 33.8 g/dl (32.0-36.5); MEAN CORPUSCULAR VOLUME 88.2 fl (80.0-96.0); MONO # 0.1 10^3/uL (0.0-0.8); MONO % 2.5 % (2.0-8.0); NEUTROPHILS # 3.7 10^3/uL (1.5-8.5); NEUTROPHILS % 91.1 % (36.0-66.0); PLATELET COUNT, AUTOMATED 374 10^3/uL (150-450); RED BLOOD COUNT 3.82 10^6/uL (4.00-5.40); WHITE BLOOD COUNT 4.1 10^3/uL (4.0-10.0)
[2020-08-30 06:24] LABS: INR 1.03; PROTHROMBIN TIME 13.7 SECONDS (12.5-14.3)
[2020-08-30 06:25] LABS: PARTIAL THROMBOPLASTIN TIME 42.1 SECONDS (24.2-38.5)
[2020-08-30 06:48] LABS: BLOOD UREA NITROGEN 9 MG/DL (7-18); CALCIUM LEVEL 8.8 MG/DL (8.8-10.2); CARBON DIOXIDE LEVEL 28 MEQ/L (21-32); CHLORIDE LEVEL 87 MEQ/L (98-107); CHOLESTEROL LEVEL 195 MG/DL (<200); CHOLESTEROL RISK RATIO 1.308 (<5); CK-MB VALUE MASS 3.5 NG/ML (<3.6); CPK CREATINE PHOSPHOKINASE 51 U/L (26-192); GLOMERULAR FILTRATION RATE > 60.0 (>39); GLUCOSE, FASTING 146 MG/DL (70-100); HDL CHOLESTEROL 149 MG/DL (>40); LDL CHOLESTEROL 38 MG/DL (<100); MB/CK RELATIVE INDEX 6.86 (< OR =4); NON-HDL-C 46 MG/DL; NT-PRO BNP 6343 PG/ML (<125); POTASSIUM SERUM 4.8 MEQ/L (3.5-5.1); SODIUM LEVEL 123 MEQ/L (136-145); TRIGLYCERIDES LEVEL 41 MG/DL (<150); TROPONIN I < 0.02 NG/ML (< 0.10)
[2020-08-30] MEDS ORDERED: amLODIPine 5 MG TAB PO SCH (09:00)
[2020-08-30] MEDS ORDERED: methylPREDNISolone 40MG 1ML VIAL IV SCH (09:00)
[2020-08-30] MEDS ORDERED: MULTIVITAMINS/MINERALS THERAP 1 TAB PO SCH (09:00)
[2020-08-30] MEDS ORDERED: ENOXAPARIN 40MG/0.4ML SYRINGE (J1650 PER 10MG) SC SCH (09:00)
[2020-08-30] MEDS ORDERED: TORSEMIDE 20 MG TAB PO SCH (09:00)
[2020-08-30] MEDS: OCUVITE 1 TAB PO SCH (09:55)
[2020-08-30] MEDS: buPROPion **XL** TABLET 150MG (WELLBUTRIN XL) PO SCH (09:55)
[2020-08-30] MEDS: FOLIC ACID 1 MG TAB PO SCH (09:55)
[2020-08-30] MEDS: APIXABAN 5 MG TAB (ELIQUIS) PO SCH ×2 (09:55→22:08)
[2020-08-30] MEDS: OMEPRAZOLE 20 MG CAP PO SCH (09:56)
[2020-08-30] MEDS: DIGOXIN 0.125 MG TAB PO SCH (09:56)
[2020-08-30] MEDS: POTASSIUM CHLORIDE 10 MEQ SR TABLET PO SCH (09:56)
[2020-08-30] MEDS: METOPROLOL TART 25 MG TABLET PO SCH ×2 (09:57→22:08)
[2020-08-30] MEDS: FUROSEMIDE 40MG/4ML VIAL (J1940) IV SCH ×2 (09:58→16:50)
[2020-08-30] MEDS ORDERED: ALBUTEROL SULFATE 2.5 MG/0.5 ML INH NEB SOLN NEB PRN (10:10)
--- NOTE | 2020-08-30 10:44 | IPNPDOC ---
Text Note Date of Service The patient was seen on 08/30/20. NOTE Subjective: Patient continues to complain of intermittent cough with whitish sputum production. She stated her breathing improved in the morning Objective: GENERAL APPEARANCE: NAD HEENT: no scleral icterus, plus JVD, EOMI CARDIOVASCULAR: Irregularly irregular LUNGS: Coarse lung sounds bilaterally with mild wheezes ABDOMEN: soft & not tender w palpation MUSCULOSKELETAL: no cyanosis, +1 nonpitting edema of both legs INTEGUMENT: no generalized pallor NEUROLOGICAL: cranial nerve function from 2-12 intact i, follows commands, speech not dysarthric Assessment and plan Patient 75 years old female with past medical history of COPD not on oxygen, , diastolic congestive heart failure, EF of 55%, probable severe pulmonary hypertension, mild mitral regurg mild tricuspid regurg, ongoing tobacco and alcohol abuse refusing to quit or cut down, anxiety presents to the emergency room with 3-day history of worsening shortness of breath with increase in weight and hyponatremia Dyspnea Multifactorial most likely secondary to acute CHF exacerbation in top of COPD exacerbation Continue inhalers, prednisone p.o. Continue levofloxacin p.o. Acute CHF exacerbation Most likely diastolic BNP significantly elevated, plus JVD, orthopnea, leg swelling and weight gain Lasix IV, I's and O's Cardiac diet Echo ordered I added statin to her medical regimen Fluid restriction Atrial fibrillation Heart rate under control Continue Eliquis and home meds to control heart rate Hypertension I increased the dose of amlodipine to 10 mg Blood pressure under control for now Hyponatremia Most likely secondary to CHF exacerbation superimposed with medication side effect of bupropion. Continue diuresis, bupropion on hold, will check urine and serum osmolality Continue to monitor BMP Hyperlipidemia Added atorvastatin Alcohol abuse/nicotine abuse CIWA Counseling GERD PPI Anxiety Bupropion on hold due to hyponatremia Osteoarthritis Tylenol VS,Fishbone, I+O VS, Fishbone, I+O Laboratory Tests 08/29/20 18:07 08/30/20 05:39 Vital Signs Date Time Temp Pulse Resp B/P (MAP) Pulse Ox O2 Delivery O2 Flow Rate FiO2 08/30/20 09:57 78 116/60 08/30/20 06:00 97.5 17 93 08/29/20 22:52 Nasal Cannula 2.0 I&O- Last 24 Hours up to 6 AM 08/30/20 06:00 Intake Total 240 ml Balance 240 ml ISMAEL MCINTYRE DO Aug 30, 2020 10:44
[2020-08-30] MEDS ORDERED: ATORVASTATIN 20 MG TAB PO ONE (11:00)
[2020-08-30] MEDS: NICOTINE 21MG/24HR 1 EA TRANSDERMAL TD PRN (12:00)
[2020-08-30] MEDS: IPRATROPIUM 0.5MG/ALBUTEROL 2.5MG INH SOL UD 3ML (DUONEB) NEB SCH ×2 (13:30→19:23)
[2020-08-30 14:26] LABS: BLOOD UREA NITROGEN 14 MG/DL (7-18); CALCIUM LEVEL 8.5 MG/DL (8.8-10.2); CARBON DIOXIDE LEVEL 30 MEQ/L (21-32); CHLORIDE LEVEL 89 MEQ/L (98-107); CREATININE FOR GFR 0.74 MG/DL (0.55-1.30); GLOMERULAR FILTRATION RATE > 60.0 (>39); GLUCOSE, FASTING 166 MG/DL (70-100); POTASSIUM SERUM 4.4 MEQ/L (3.5-5.1); SODIUM LEVEL 126 MEQ/L (136-145)
[2020-08-30] MEDS: ADVAIR HFA 230/21MCG INHALER INH SCH (19:22)
[2020-08-30 20:58] LABS: CALCIUM LEVEL 8.3 MG/DL (8.8-10.2); CREATININE FOR GFR 0.99 MG/DL (0.55-1.30); GLOMERULAR FILTRATION RATE 58.7 (>39); POTASSIUM SERUM 4.3 MEQ/L (3.5-5.1)
--- NOTE | 2020-08-30 21:22 | ECGEPIP ---
[facility] - ED Test Date: 2020-08-29 Pat Name: TRE BOYER Department: Room: - Gender: Female [employer]: DIANE : 1950 Requested By: DARIUS Perez Order Number: [id number] Reading MD: Agatha Gutierrez Measurements Intervals Leland Rate: 119 P: MN: QRS: 56 QRSD: 68 T: 37 QT: 318 QTc: 447 Interpretive Statements Atrial fibrillation with rapid ventricular response with premature ventricular or aberrantly conducted complexes Anteroseptal infarct , age undetermined NSTTW abnormalities increased rate 06/03/20 Electronically Signed on 08-30-2020 21:22:11 EDT by Agatha Gutierrez
[2020-08-31] MEDS ORDERED: ACETAMINOPHEN 500 MG TAB PO ONE (00:15)
[2020-08-31] MEDS: FUROSEMIDE 40MG/4ML VIAL (J1940) IV SCH ×3 (00:17→15:19)
[2020-08-31] MEDS ORDERED: FUROSEMIDE 40MG/4ML VIAL (J1940) IV SCH (01:00)
[2020-08-31] MEDS: IPRATROPIUM 0.5MG/ALBUTEROL 2.5MG INH SOL UD 3ML (DUONEB) NEB SCH ×4 (01:42→19:51)
[2020-08-31 02:49] LABS: CALCIUM LEVEL 8.7 MG/DL (8.8-10.2); CREATININE FOR GFR 1.12 MG/DL (0.55-1.30); GLOMERULAR FILTRATION RATE 50.9 (>39); POTASSIUM SERUM 4.2 MEQ/L (3.5-5.1)
[2020-08-31] MEDS: LEVOTHYROXINE 50MCG TABLET (0.05MG) PO SCH (05:48)
[2020-08-31 06:00] VITALS: BP_SYST 131; BP_SYST 141; BP_DIAS 65; BP_DIAS 67
[2020-08-31 06:36] LABS: BASO % 0.3 % (0.0-1.0); EOS % 0.1 % (0.0-3.0); HEMATOCRIT 33.2 % (36.0-47.0); HEMOGLOBIN 10.8 g/dl (12.0-15.5); LYMPH # 1.4 10^3/uL (1.5-5.0); LYMPH % 14.8 % (24.0-44.0); MEAN CORPUSCULAR HEMOGLOBIN 29.3 pg (27.0-33.0); MEAN CORPUSCULAR HGB CONC 32.5 g/dl (32.0-36.5); MEAN CORPUSCULAR VOLUME 90.2 fl (80.0-96.0); MONO # 1.4 10^3/uL (0.0-0.8); MONO % 15.1 % (2.0-8.0); NEUTROPHILS # 6.5 10^3/uL (1.5-8.5); PLATELET COUNT, AUTOMATED 379 10^3/uL (150-450); RED BLOOD COUNT 3.68 10^6/uL (4.00-5.40); WHITE BLOOD COUNT 9.5 10^3/uL (4.0-10.0)
[2020-08-31 07:04] LABS: BLOOD UREA NITROGEN 17 MG/DL (7-18); CALCIUM LEVEL 8.6 MG/DL (8.8-10.2); CARBON DIOXIDE LEVEL 30 MEQ/L (21-32); CHLORIDE LEVEL 94 MEQ/L (98-107); CREATININE FOR GFR 0.75 MG/DL (0.55-1.30); GLOMERULAR FILTRATION RATE > 60.0 (>39); GLUCOSE, FASTING 91 MG/DL (70-100); MAGNESIUM LEVEL 1.9 MG/DL (1.8-2.4); SODIUM LEVEL 129 MEQ/L (136-145)
[2020-08-31] MEDS: ADVAIR HFA 230/21MCG INHALER INH SCH ×2 (07:44→19:52)
[2020-08-31] MEDS: FOLIC ACID 1 MG TAB PO SCH (08:27)
[2020-08-31] MEDS: POTASSIUM CHLORIDE 10 MEQ SR TABLET PO SCH (08:28)
[2020-08-31] MEDS: OCUVITE 1 TAB PO SCH (08:28)
[2020-08-31] MEDS: OMEPRAZOLE 20 MG CAP PO SCH (08:28)
[2020-08-31] MEDS: DIGOXIN 0.125 MG TAB PO SCH (08:28)
[2020-08-31] MEDS: THIAMINE 100 MG TAB PO SCH ×2 (08:29→21:10)
[2020-08-31] MEDS: APIXABAN 5 MG TAB (ELIQUIS) PO SCH ×2 (08:29→21:09)
[2020-08-31] MEDS: METOPROLOL TART 25 MG TABLET PO SCH ×2 (08:29→21:10)
[2020-08-31] MEDS: ATORVASTATIN 20 MG TAB PO SCH (08:29)
[2020-08-31 12:30] VITALS: BP 125/62
[2020-08-31] MEDS: NICOTINE 21MG/24HR 1 EA TRANSDERMAL TD PRN (12:32)
[2020-08-31] MEDS: LORazepam 2 MG TAB PO PRN (12:56)
[2020-08-31 14:32] LABS: BLOOD UREA NITROGEN 18 MG/DL (7-18); CALCIUM LEVEL 8.8 MG/DL (8.8-10.2); CARBON DIOXIDE LEVEL 28 MEQ/L (21-32); CHLORIDE LEVEL 99 MEQ/L (98-107); CREATININE FOR GFR 0.76 MG/DL (0.55-1.30); GLOMERULAR FILTRATION RATE > 60.0 (>39); GLUCOSE, FASTING 179 MG/DL (70-100); POTASSIUM SERUM 4.1 MEQ/L (3.5-5.1); SODIUM LEVEL 135 MEQ/L (136-145)
--- NOTE | 2020-08-31 14:35 | IPNPDOC ---
Text Note Date of Service The patient was seen on 08/31/20. NOTE Subjective: Patient stated that she feels better today, breathing improved, less sputum Objective: GENERAL APPEARANCE: NAD HEENT: no scleral icterus, plus JVD, EOMI CARDIOVASCULAR: Irregularly irregular LUNGS: Coarse lung sounds bilaterally with mild wheezes ABDOMEN: soft & not tender w palpation MUSCULOSKELETAL: no cyanosis, no leg swelling INTEGUMENT: no generalized pallor NEUROLOGICAL: cranial nerve function from 2-12 intact i, follows commands, speech not dysarthric Assessment and plan Patient 75 years old female with past medical history of COPD not on oxygen, , diastolic congestive heart failure, EF of 55%, probable severe pulmonary hypertension, mild mitral regurg mild tricuspid regurg, ongoing tobacco and alcohol abuse refusing to quit or cut down, anxiety presents to the emergency room with 3-day history of worsening shortness of breath with increase in weight and hyponatremia Dyspnea Multifactorial most likely secondary to acute CHF exacerbation in top of COPD exacerbation Continue inhalers, prednisone p.o. Continue levofloxacin p.o. Acute CHF exacerbation Most likely diastolic BNP significantly elevated, plus JVD, orthopnea, leg swelling and weight gain Lasix IV, I's and O's Cardiac diet Echo pending I added statin to her medical regimen Fluid restriction Atrial fibrillation Heart rate under control Continue Eliquis and home meds to control heart rate Hypertension I increased the dose of amlodipine to 10 mg Blood pressure under control for now Hyponatremia Most likely secondary to CHF exacerbation superimposed with medication side effect of bupropion. Continue diuresis, bupropion on hold Continue to monitor BMP Improved Hyperlipidemia Added atorvastatin Alcohol abuse/nicotine abuse CIWA Counseling GERD PPI Anxiety Bupropion on hold due to hyponatremia Osteoarthritis Tylenol VS,Fishbone, I+O VS, Fishbone, I+O Laboratory Tests 08/30/20 20:13 08/31/20 02:00 08/31/20 05:45 Vital Signs Date Time Temp Pulse Resp B/P (MAP) Pulse Ox O2 Delivery O2 Flow Rate FiO2 08/31/20 12:30 74 125/62 08/31/20 08:30 1.0 08/31/20 06:00 97.6 17 96 Nasal Cannula I&O- Last 24 Hours up to 6 AM 08/31/20 06:00 Intake Total 1020 ml Output Total 500 ml Balance 520 ml ISMAEL MCINTYRE DO Aug 31, 2020 14:34
[2020-08-31 15:00] VITALS: BP 123/63
[2020-08-31 16:17] LABS: APPEARANCE, URINE CLEAR (CLEAR); BACTERIA, URINE AUTO 1+ (NEGATIVE); BILIRUBIN, URINE AUTO NEGATIVE (NEGATIVE); BLOOD, URINE BLOOD NEGATIVE (NEGATIVE); COLOR, URINE YELLOW (YELLOW); GLUCOSE, URINE (UA) AUTO NEGATIVE (NEGATIVE); KETONE, URINE AUTO NEGATIVE (NEGATIVE); LEUKOCYTE ESTERASE, URINE AUTO 3+ (NEGATIVE); NITRITE, URINE AUTO NEGATIVE (NEGATIVE); PROTEIN, URINE AUTO NEGATIVE (NEGATIVE); RBC, URINE AUTO 0 /HPF (0-3); SPECIFIC GRAVITY URINE AUTO 1.006 (1.002-1.035); SQUAMOUS EPITHELIAL CELL UR AU 1 /HPF (0-6); UROBILINOGEN, URINE AUTO 0.2 mg/dL (0.0-2.0); WBC, URINE AUTO 50 /HPF (0-3)
[2020-08-31 20:51] LABS: BLOOD UREA NITROGEN 19 MG/DL (7-18); CALCIUM LEVEL 8.8 MG/DL (8.8-10.2); CARBON DIOXIDE LEVEL 30 MEQ/L (21-32); CHLORIDE LEVEL 102 MEQ/L (98-107); CREATININE FOR GFR 0.86 MG/DL (0.55-1.30); GLOMERULAR FILTRATION RATE > 60.0 (>39); GLUCOSE, FASTING 139 MG/DL (70-100); POTASSIUM SERUM 4.3 MEQ/L (3.5-5.1); SODIUM LEVEL 138 MEQ/L (136-145)
[2020-08-31 21:00] VITALS: BP 126/64
[2020-08-31 22:00] VITALS: BP 126/64
[2020-09-01] VITALS (7 sets, daily range): BP systolic 132–157; BP diastolic 64–68
[2020-09-01] MEDS: FUROSEMIDE 40MG/4ML VIAL (J1940) IV SCH ×3 (01:01→18:20)
[2020-09-01] MEDS: IPRATROPIUM 0.5MG/ALBUTEROL 2.5MG INH SOL UD 3ML (DUONEB) NEB SCH ×4 (01:38→21:08)
[2020-09-01 02:28] LABS: BLOOD UREA NITROGEN 18 MG/DL (7-18); CALCIUM LEVEL 8.9 MG/DL (8.8-10.2); CARBON DIOXIDE LEVEL 31 MEQ/L (21-32); CHLORIDE LEVEL 100 MEQ/L (98-107); CREATININE FOR GFR 0.84 MG/DL (0.55-1.30); GLOMERULAR FILTRATION RATE > 60.0 (>39); GLUCOSE, FASTING 105 MG/DL (70-100); POTASSIUM SERUM 3.9 MEQ/L (3.5-5.1); SODIUM LEVEL 137 MEQ/L (136-145)
[2020-09-01] MEDS ORDERED: LevoFLOXacin 750 MG TABLET PO SCH (06:00)
[2020-09-01 06:35] LABS: BASO # 0.1 10^3/uL (0.0-0.2); EOS % 0.5 % (0.0-3.0); HEMOGLOBIN 11.4 g/dl (12.0-15.5); LYMPH # 1.5 10^3/uL (1.5-5.0); LYMPH % 19.1 % (24.0-44.0); MEAN CORPUSCULAR HEMOGLOBIN 29.5 pg (27.0-33.0); MEAN CORPUSCULAR HGB CONC 31.7 g/dl (32.0-36.5); MONO # 1.4 10^3/uL (0.0-0.8); MONO % 17.9 % (2.0-8.0); NEUTROPHILS # 4.7 10^3/uL (1.5-8.5); NEUTROPHILS % 60.3 % (36.0-66.0); PLATELET COUNT, AUTOMATED 409 10^3/uL (150-450); RED BLOOD COUNT 3.87 10^6/uL (4.00-5.40); WHITE BLOOD COUNT 7.7 10^3/uL (4.0-10.0)
[2020-09-01] MEDS: LEVOTHYROXINE 50MCG TABLET (0.05MG) PO SCH (06:36)
[2020-09-01 06:57] LABS: BLOOD UREA NITROGEN 16 MG/DL (7-18); CALCIUM LEVEL 9.4 MG/DL (8.8-10.2); CARBON DIOXIDE LEVEL 31 MEQ/L (21-32); CHLORIDE LEVEL 98 MEQ/L (98-107); GLOMERULAR FILTRATION RATE > 60.0 (>39); GLUCOSE, FASTING 87 MG/DL (70-100); MAGNESIUM LEVEL 1.7 MG/DL (1.8-2.4); POTASSIUM SERUM 3.8 MEQ/L (3.5-5.1); SODIUM LEVEL 135 MEQ/L (136-145)
[2020-09-01] MEDS: ADVAIR HFA 230/21MCG INHALER INH SCH ×2 (08:02→21:09)
[2020-09-01] MEDS: FOLIC ACID 1 MG TAB PO SCH (09:08)
[2020-09-01] MEDS: THIAMINE 100 MG TAB PO SCH ×2 (09:08→20:53)
[2020-09-01] MEDS: OMEPRAZOLE 20 MG CAP PO SCH (09:08)
[2020-09-01] MEDS: APIXABAN 5 MG TAB (ELIQUIS) PO SCH ×2 (09:08→20:53)
[2020-09-01] MEDS: METOPROLOL TART 25 MG TABLET PO SCH ×2 (09:09→20:53)
[2020-09-01] MEDS: DIGOXIN 0.125 MG TAB PO SCH (09:10)
[2020-09-01] MEDS: OCUVITE 1 TAB PO SCH (09:10)
[2020-09-01] MEDS: POTASSIUM CHLORIDE 10 MEQ SR TABLET PO SCH (09:10)
[2020-09-01] MEDS: ATORVASTATIN 20 MG TAB PO SCH (09:10)
[2020-09-01 13:19] LABS: BLOOD UREA NITROGEN 17 MG/DL (7-18); CALCIUM LEVEL 9.4 MG/DL (8.8-10.2); CARBON DIOXIDE LEVEL 32 MEQ/L (21-32); CHLORIDE LEVEL 98 MEQ/L (98-107); CREATININE FOR GFR 0.79 MG/DL (0.55-1.30); GLOMERULAR FILTRATION RATE > 60.0 (>39); GLUCOSE, FASTING 178 MG/DL (70-100); SODIUM LEVEL 135 MEQ/L (136-145)
[2020-09-01] MEDS: NICOTINE 21MG/24HR 1 EA TRANSDERMAL TD PRN (13:33)
[2020-09-01] MEDS: ACETAMINOPHEN TAB 650MG DOSE (2X325MG) PO PRN (13:35)
[2020-09-01] MEDS: LORazepam 2 MG TAB PO PRN (13:49)
--- NOTE | 2020-09-01 14:02 | IPNPDOC ---
Text Note Date of Service The patient was seen on 09/01/20. NOTE Subjective: No any acute events overnight Objective: GENERAL APPEARANCE: NAD HEENT: no scleral icterus, plus JVD, EOMI CARDIOVASCULAR: Irregularly irregular LUNGS: Diminished lung sounds bilaterally ABDOMEN: soft & not tender w palpation MUSCULOSKELETAL: no cyanosis, no leg swelling INTEGUMENT: no generalized pallor NEUROLOGICAL: cranial nerve function from 2-12 intact i, follows commands, speech not dysarthric Assessment and plan Patient 75 years old female with past medical history of COPD not on oxygen, , diastolic congestive heart failure, EF of 55%, probable severe pulmonary hypertension, mild mitral regurg mild tricuspid regurg, ongoing tobacco and alcohol abuse refusing to quit or cut down, anxiety presents to the emergency room with 3-day history of worsening shortness of breath with increase in weight and hyponatremia Dyspnea Multifactorial most likely secondary to acute CHF exacerbation in top of COPD exacerbation Continue inhalers, prednisone p.o. Continue levofloxacin p.o. Acute CHF exacerbation Most likely diastolic BNP significantly elevated, plus JVD, orthopnea, leg swelling and weight gain Lasix IV, I's and O's Cardiac diet Echo pending Continue statin Fluid restriction Atrial fibrillation Heart rate under control Continue Eliquis and home meds to control heart rate Hypertension I increased the dose of amlodipine to 10 mg Blood pressure under control for now Hyponatremia Resolved Hyperlipidemia Continue atorvastatin Alcohol abuse/nicotine abuse CIWA Counseling GERD PPI Anxiety Bupropion on hold due to hyponatremia Osteoarthritis Tylenol VS,Fishbone, I+O VS, Fishbone, I+O Laboratory Tests 08/31/20 20:04 09/01/20 01:44 09/01/20 05:38 09/01/20 12:13 Vital Signs Date Time Temp Pulse Resp B/P (MAP) Pulse Ox O2 Delivery O2 Flow Rate FiO2 09/01/20 13:35 92 134/67 09/01/20 09:00 0.5 09/01/20 06:24 97.6 18 87 Nasal Cannula I&O- Last 24 Hours up to 6 AM 09/01/20 06:00 Intake Total 300 ml Output Total 450 ml Balance -150 ml ISMAEL MCINTYRE DO Sep 01, 2020 14:02
[2020-09-02] MEDS: FUROSEMIDE 40MG/4ML VIAL (J1940) IV SCH ×2 (00:32→08:10)
[2020-09-02] MEDS: IPRATROPIUM 0.5MG/ALBUTEROL 2.5MG INH SOL UD 3ML (DUONEB) NEB SCH ×3 (02:30→13:17)
[2020-09-02 05:48] LABS: BASO # 0.1 10^3/uL (0.0-0.2); BASO % 1.1 % (0.0-1.0); EOS # 0.1 10^3/uL (0.0-0.5); EOS % 0.9 % (0.0-3.0); HEMOGLOBIN 12.2 g/dl (12.0-15.5); LYMPH # 1.6 10^3/uL (1.5-5.0); LYMPH % 19.3 % (24.0-44.0); MEAN CORPUSCULAR HEMOGLOBIN 29.6 pg (27.0-33.0); MEAN CORPUSCULAR HGB CONC 32.1 g/dl (32.0-36.5); MEAN CORPUSCULAR VOLUME 92.2 fl (80.0-96.0); MONO # 1.5 10^3/uL (0.0-0.8); MONO % 18.5 % (2.0-8.0); NEUTROPHILS # 4.7 10^3/uL (1.5-8.5); NEUTROPHILS % 57.7 % (36.0-66.0); PLATELET COUNT, AUTOMATED 378 10^3/uL (150-450); RED BLOOD COUNT 4.12 10^6/uL (4.00-5.40); WHITE BLOOD COUNT 8.1 10^3/uL (4.0-10.0)
[2020-09-02] MEDS: LEVOTHYROXINE 50MCG TABLET (0.05MG) PO SCH (05:49)
[2020-09-02] MEDS ORDERED: LevoFLOXacin 500 MG TABLET PO SCH (06:00)
[2020-09-02 06:06] LABS: BLOOD UREA NITROGEN 15 MG/DL (7-18); CARBON DIOXIDE LEVEL 34 MEQ/L (21-32); CHLORIDE LEVEL 98 MEQ/L (98-107); CREATININE FOR GFR 0.62 MG/DL (0.55-1.30); GLOMERULAR FILTRATION RATE > 60.0 (>39); GLUCOSE, FASTING 103 MG/DL (70-100); MAGNESIUM LEVEL 1.7 MG/DL (1.8-2.4); POTASSIUM SERUM 3.7 MEQ/L (3.5-5.1); SODIUM LEVEL 137 MEQ/L (136-145)
[2020-09-02 06:40] VITALS: BP 137/78
[2020-09-02] MEDS: ADVAIR HFA 230/21MCG INHALER INH SCH (08:03)
[2020-09-02] MEDS: NICOTINE 21MG/24HR 1 EA TRANSDERMAL TD PRN (08:10)
[2020-09-02] MEDS: APIXABAN 5 MG TAB (ELIQUIS) PO SCH (08:11)
[2020-09-02] MEDS: OMEPRAZOLE 20 MG CAP PO SCH (08:11)
[2020-09-02] MEDS: FOLIC ACID 1 MG TAB PO SCH (08:11)
[2020-09-02 08:12] VITALS: BP 136/82
[2020-09-02] MEDS: DIGOXIN 0.125 MG TAB PO SCH (08:12)
[2020-09-02] MEDS: ATORVASTATIN 20 MG TAB PO SCH (08:12)
[2020-09-02] MEDS: METOPROLOL TART 25 MG TABLET PO SCH (08:12)
[2020-09-02] MEDS: OCUVITE 1 TAB PO SCH (08:13)
[2020-09-02] MEDS: POTASSIUM CHLORIDE 10 MEQ SR TABLET PO SCH (08:13)
[2020-09-02] MEDS: THIAMINE 100 MG TAB PO SCH (08:13)
[2020-09-02] MEDS ORDERED: MAGNESIUM OXIDE 400MG TAB (MAG-OX) PO SCH (09:00)
[2020-09-02] MEDS: buPROPion **XL** TABLET 150MG (WELLBUTRIN XL) PO SCH (10:00)
[2020-09-02] MEDS ORDERED: ATOR1TAB21 PO (10:21)
[2020-09-02] MEDS ORDERED: NICO21PAT TD (10:21)
[2020-09-02] MEDS ORDERED: ADVA230A INH ×2 (10:21→14:11)
[2020-09-02] MEDS ORDERED: AMLO1TAB25 PO (10:21)
[2020-09-02] MEDS ORDERED: LEVO500T3 PO (10:21)
[2020-09-02] MEDS ORDERED: PRED10TA2 PO (10:30)
--- NOTE | 2020-09-02 13:37 | DS.PDOC ---
Discharge Summary General Date of Admission Aug 29, 2020 at 20:00 Date of Discharge 09/02/20 Discharge Summary PROCEDURES PERFORMED DURING STAY: [None]. ADMITTING DIAGNOSES: Dyspnea Acute CHF exacerbation Atrial fibrillation Hypertension Hyponatremia Hyperlipidemia GERD Anxiety Osteoarthritis Alcohol abuse/nicotine abuse DISCHARGE DIAGNOSES: Dyspnea Acute CHF exacerbation Atrial fibrillation Hypertension Hyponatremia Hyperlipidemia GERD Anxiety Osteoarthritis Alcohol abuse/nicotine abuse COMPLICATIONS/CHIEF COMPLAINT: Copd Exacerbation. HISTORY OF PRESENT ILLNESS: Patient 75 years old female with past medical history of COPD not on oxygen, , diastolic congestive heart failure, EF of 55%, probable severe pulmonary hypertension, mild mitral regurg mild tricuspid regurg, ongoing tobacco and alcohol abuse refusing to quit or cut down, anxiety presents to the emergency room with 3-day history of worsening shortness of breath with increase in weight and hyponatremia HOSPITAL COURSE: During the hospital stay the following issues addressed Dyspnea Multifactorial most likely secondary to acute CHF exacerbation in top of COPD exacerbation Patient received inhalers, prednisone p.o. - levofloxacin p.o. sputum culture positive for E. coli and Enterobacter. Respiratory panel positive for rhinovirus infection Acute CHF exacerbation Most likely diastolic BNP significantly elevated, plus JVD, orthopnea, leg swelling and weight gain Patient received treatment with Lasix IV Cardiac diet Echo pending Continue statin Fluid restriction Atrial fibrillation Heart rate under control Continue Eliquis and home meds to control heart rate Hypertension I increased the dose of amlodipine to 10 mg Blood pressure under control for now Hyponatremia Secondary to CHF exacerbation Resolved Hyperlipidemia Continue atorvastatin Alcohol abuse/nicotine abuse CIWA Counseling GERD PPI Anxiety Bupropion on hold due to hyponatremia Osteoarthritis DISCHARGE MEDICATIONS: Please see below. ALLERGIES: Please see below. PHYSICAL EXAMINATION ON DISCHARGE: VITAL SIGNS: Please see below. GENERAL APPEARANCE: NAD HEENT: no scleral icterus, plus JVD, EOMI CARDIOVASCULAR: Irregularly irregular LUNGS: Diminished lung sounds bilaterally ABDOMEN: soft & not tender w palpation MUSCULOSKELETAL: no cyanosis, no leg swelling INTEGUMENT: no generalized pallor NEUROLOGICAL: cranial nerve function from 2-12 intact i, follows commands, speech not dysarthric LABORATORY DATA: Please see below. IMAGING: [facility] NAME: TRE BOYER DATE OF : 1950 AGE: 70 SEX: F REPORT #: [id number] ROOM: M ED TECHNOLOGIST: EFREN DOCTOR: DARIUS LEMOS MD Ordered for Date&Time: 08/29/201748 cc: [~ rep ct ivnm] Service Date&Time: 08/29/201755 This report is in Signed status. If this report is in a DRAFT status it has not yet been reviewed by the radi ologist for accuracy. Thank you for having your radiology procedures performed at [facility] RADIOLOGY REPORT Date&Time printed: [~ rep prt dt last] [~ rep prt tm last] Page [address] [address] RADIOLOGY REPORT This report is in Signed status. If this report is in a DRAFT status it has not yet been reviewed by the radiologist for accuracy. Thank you for having your radiology procedures performed at [facility] RADIOLOGY REPORT Date&Time printed: [~ rep prt dt last] [~ rep prt tm last] Page 1 of 1 COMPARISON: Comparison chest x-ray June 03, 2020. TECHNIQUE: Portable upright AP chest radiograph. FINDINGS: Cardiomegaly is observed. Pulmonary vascular cephalization is seen. Interstitial markings are diffusely prominent consistent with mild interstitial edema. No pleural effusion is seen. The EKG electrodes are noted. No bony abnormality is seen.. IMPRESSION: CHF pattern with mild interstitial edema and vascular congestion.. <Electronically signed by Santiago Bond > 08/29/201814 DD: Eliud Bond MD 08/29/201814 DT: MARGO 08/29/201814 DS: RUMA 08/29/20181408/29/201814 [~ rep ct labl] PROGNOSIS: Fair ACTIVITY: [As tolerated]. DIET: Cardiac DISPOSITION: . Home with home health DISCHARGE INSTRUCTIONS: Stop smoking and drinking alcohol ITEMS TO FOLLOWUP ON ON OUTPATIENT: Follow-up with PCP in 3 to 5 days DISCHARGE CONDITION: [Stable]. TIME SPENT ON DISCHARGE: 50minutes. Vital Signs/I&Os Vital Signs Date Time Temp Pulse Resp B/P (MAP) Pulse Ox O2 Delivery O2 Flow Rate FiO2 09/02/20 08:12 89 136/82 09/02/20 02:31 20 09/01/20 22:08 0.0 09/01/20 22:00 96.2 93 Room Air I&O- Last 24 Hours up to 6 AM 09/02/20 06:00 Intake Total 510 ml Output Total 1280 ml Balance -770 ml Laboratory Data Labs 24H Laboratory Tests 2 09/02/20 05:28: Immature Granulocyte % (Auto) 2.5, Neutrophils (%) (Auto) 57.7, Lymphocytes (%) (Auto) 19.3L, Monocytes (%) (Auto) 18.5H, Eosinophils (%) (Auto) 0.9, Basophils (%) (Auto) 1.1H, Neutrophils # (Auto) 4.7, Lymphocytes # (Auto) 1.6, Monocytes # (Auto) 1.5H, Eosinophils # (Auto) 0.1, Basophils # (Auto) 0.1, Nucleated Red Blood Cells % (auto) 0.0, Anion Gap 5L, Glomerular Filtration Rate > 60.0, Calcium Level 9.0, Magnesium Level 1.7L CBC/BMP Laboratory Tests 09/02/20 05:28 Microbiology Microbiology 08/31/20 Gram Stain - Final, Complete 08/31/20 Sputum Culture - Final, Complete Escherichia Coli Enterobacter Aerogenes 08/29/20 Respiratory Virus Panel (PCR) (DEMAR) - Final, Complete Human Rhinovirus/Enterovirus Discharge Medications Scheduled Amlodipine Besylate (Amlodipine Besylate) 10 Mg Tablet, 10 MG PO DAILY Apixaban (Eliquis) 5 Mg Tablet, 5 MG PO BID, (Reported) Atorvastatin Calcium (Atorvastatin Calcium) 20 Mg Tablet, 40 MG PO DAILY Bupropion Hcl (Bupropion Xl) 150 Mg Tab.er.24h, 150 MG PO DAILY, (Reported) Digoxin (Digoxin) 125 Mcg Tablet, 125 MCG PO DAILY, (Reported) Fluticasone Propion/Salmeterol (Advair Hfa 230-21 Mcg Inhaler) 12 Gm Hfa.aer.ad, 2 PUFF INH RBID Ipratropium/Albuterol Sulfate (Iprat-Albut 0.5-3(2.5) mg/3 ml) 3 Ml Ampul.neb, 1 VIAL NEB BID, (Reported) Levofloxacin (Levofloxacin) 500 Mg Tablet, 500 MG PO Q24H Levothyroxine Sodium (Synthroid) 50 Mcg Tablet, 50 MCG PO QAM, (Reported) Metoprolol Tartrate (Metoprolol Tartrate) 25 Mg Tablet, 25 MG PO BID, (Reported) Omeprazole (Omeprazole) 20 Mg Capsule.dr, 20 MG PO DAILY, (Reported) Potassium Chloride (Potassium Chloride) 20 Meq Tab.er.prt, 20 MEQ PO DAILY, (Reported) dissolve in water Prednisone (Prednisone) 10 Mg Tablet, 10 MG PO TAPER Take 4 tabs daily x 3 days, then 3 tabs daily x 3 days, then 2 tabs daily x 3 days, then 1 tab daily x 3 days and stop Torsemide (Torsemide) 20 Mg Tablet, 30 MG PO DAILY, (Reported) Vit A/Vit C/Vit E/Zinc/Copper (Preservision Areds Tablet) 1 Each Tablet, 1 TAB PO DAILY, (Reported) Scheduled PRN Acetaminophen (Acetaminophen) 325 Mg Tablet, 650 MG PO Q4H PRN for PAIN / FEVER, (Reported) Albuterol Sulfate (Albuterol Sulfate Hfa) 8.5 Gm Hfa.aer.ad, 1 PUFF PO Q4H PRN for SHORTNESS OF BREATH, (Reported) Nicotine (Nicotine Patch) 21 Mg Patch.td24, 1 PATCH TD DAILYPRN PRN for NICOTINE WITHDRAWAL Allergies Coded Allergies: prochlorperazine (Verified Adverse Reaction, Severe, RIGIDITY OF JAW, 08/29/20) cephalexin (Verified Adverse Reaction, Mild, N/V, 08/29/20) codeine (Verified Adverse Reaction, Mild, N/V, 08/29/20) lisinopril (Verified Adverse Reaction, Mild, INCREASES POTASSIUM LEVEL, 08/29/20) meperidine (Verified Adverse Reaction, Mild, INCREASED K, 08/29/20) ISMAEL MCINTYRE DO Sep 02, 2020 13:37
[2020-09-02 14:00] VITALS: BP 128/104
--- NOTE | 2020-09-04 11:50 | ECHO ---
ECHOCARDIOGRAM DATE OF PROCEDURE: 09/01/2020 Age: 70 Gender: Female Height: 62 inches Weight: 116 pounds Body Surface Area 1.5 m2 PATIENT LOCATION: Inpatient [facility] Room 4210 REFERRING PHYSICIAN: ISMAEL MCINTYRE DO INDICATION: CHF. MEASUREMENTS: 2D Measurements: RV 4.0 cm LV 4.4 cm Septum 1.0 cm Posterior wall 1.0 cm Aortic Root 2.9 cm LA 4.2 cm LVEF 75% Doppler Measurements: AV 1.68 m/s LVOT 1.15 m/s LVOT diameter 1.7 cm MV-E 114 Early mitral deceleration time 193 msec E prime medial 8.3, E prime lateral 10 Average E/E prime ratio 12.5/PCWP 17.3 mmHg PV 0.8 cm Pulmonary artery acceleration time 103 msec RVSP 37 mmHg IVC 2.1 cm COMMENTS: Underlying atrial fibrillation with controlled ventricular response. M-mode and two-dimensional echocardiography was performed along with pulse, continuous wave, color flow, and tissue Doppler studies. Normal left ventricular size and wall thickness with hyperkinetic wall motion. At least mild to moderately dilated left atrium with current estimated mean left atrial pressure upper limits of normal. Borderline right heart chamber enlargement with normal wall motion and Doppler evidence of at least mild pulmonary hypertension. IVC size upper limits of normal with adequate respiratory collapse in keeping with central venous pressure upper limits of normal. Normal aortic diameters. Mild aortic valvular sclerosis without functional abnormality. Subtle mitral annular calcification without functional valvular abnormality. Normal appearing tricuspid valve with mild insufficiency (physiological). No apparent intracardiac mass or pericardial effusion. MTDD
== END 2020-09-02 14:43 | disposition home or self-care (01) | DRG 292 ==
LOC: M ED 17:06 → M ED INP 20:00 → M MSPAV 08-30 00:35
PROVIDERS: ADMIT General Practice; ATTEND Internal Medicine
DX: I11.0 Hypertensive heart disease with heart failure (principal); J44.1 Chronic obstructive pulmonary disease with (acute) exacerbation; E87.1 Hypo-osmolality and hyponatremia; I48.20 Chronic atrial fibrillation, unspecified; I50.33 Acute on chronic diastolic (congestive) heart failure; K21.9 Gastro-esophageal reflux disease without esophagitis; F41.9 Anxiety disorder, unspecified; M19.90 Unspecified osteoarthritis, unspecified site; E78.5 Hyperlipidemia, unspecified; F10.10 Alcohol abuse, uncomplicated; F17.200 Nicotine dependence, unspecified, uncomplicated; I27.20 Pulmonary hypertension, unspecified; I08.1 Rheumatic disorders of both mitral and tricuspid valves; Z79.899 Other long term (current) drug therapy; Z88.5 Allergy status to narcotic agent; Z88.8 Allergy status to other drugs, medicaments and biological substances; Z91.19 Patient's noncompliance with other medical treatment and regimen; Z79.01 Long term (current) use of anticoagulants; Z66 Do not resuscitate; K44.9 Diaphragmatic hernia without obstruction or gangrene

== ENCOUNTER 2020-09-06 16:34 | Inpatient (IN) | payer MEDICARE ==
[~2020-09-06] VITALS: Ht 157.5 cm; Wt 87.7 kg
[~2020-09-06 16:34] MED LIST changes: +ADVA230A INH; +ALBU8.5H PO; +ATOR1TAB21 PO; +DIGO0.123 PO; +DOK1CAP4; -DOK1CAP7; -LEVO500T3 PO; +LEVO500T4 PO; +NICO21PAT TD; +OMEP-173 PO; -OMEP-218 PO; +POTA-151 PO; -POTA20TA6 PO
[2020-09-06 17:40] LABS: VENOUS BASE EXCESS 0.4 (-2.0-2.0); VENOUS HCO3 25.9 MEQ/L (23.0-27.0); VENOUS O2 SATURATION 72.7 % (60.0-80.0); VENOUS PARTIAL PRESSURE CO2 44.5 mmHg (38.0-50.0); VENOUS PARTIAL PRESSURE O2 37.2 mmHg (30.0-50.0); VENOUS PH 7.382 UNITS (7.330-7.430); VENOUS STANDARD HCO3 24.3 MEQ/L; VENOUS TOTAL CO2 27.2 MEQ/L (24.0-28.0)
[2020-09-06] MEDS: COMBIVENT RESPIMAT 100-20MCG INHALER 4GM INH SCH ×3 (17:43→18:05)
[2020-09-06 17:45] LABS: BASO % 0.2 % (0.0-1.0); EOS % 0.1 % (0.0-3.0); HEMATOCRIT 39.4 % (36.0-47.0); HEMOGLOBIN 13.1 g/dl (12.0-15.5); LYMPH # 0.5 10^3/uL (1.5-5.0); LYMPH % 3.1 % (24.0-44.0); MEAN CORPUSCULAR HEMOGLOBIN 30.1 pg (27.0-33.0); MEAN CORPUSCULAR HGB CONC 33.2 g/dl (32.0-36.5); MEAN CORPUSCULAR VOLUME 90.6 fl (80.0-96.0); MONO # 0.4 10^3/uL (0.0-0.8); MONO % 2.6 % (2.0-8.0); NEUTROPHILS # 13.8 10^3/uL (1.5-8.5); NEUTROPHILS % 92.9 % (36.0-66.0); PLATELET COUNT, AUTOMATED 473 10^3/uL (150-450); RED BLOOD COUNT 4.35 10^6/uL (4.00-5.40); WHITE BLOOD COUNT 14.9 10^3/uL (4.0-10.0)
[2020-09-06] MEDS ORDERED: FUROSEMIDE 40MG/4ML VIAL (J1940) IV ONE (18:05)
[2020-09-06 18:34] LABS: ALBUMIN 3.4 GM/DL (3.2-5.2); ALT/SGPT 48 U/L (12-78); BILIRUBIN,DIRECT 0.2 MG/DL (0.0-0.2); BILIRUBIN,TOTAL 0.5 MG/DL (0.2-1.0); DIGOXIN LEVEL 1.3 NG/ML (0.5-2.0); MAGNESIUM LEVEL 1.8 MG/DL (1.8-2.4); NT-PRO BNP 1434 PG/ML (<125); TOTAL PROTEIN 6.9 GM/DL (6.4-8.2)
[2020-09-06] MEDS ORDERED: LORazepam 2 MG TAB PO PRN (18:35)
[2020-09-06] MEDS ORDERED: THIAMINE 100 MG TAB PO SCH (18:37)
[2020-09-06] MEDS ORDERED: LEVO500T4 PO (18:59)
[2020-09-06] MEDS ORDERED: AMLO1TAB25 PO (18:59)
[2020-09-06] MEDS ORDERED: ATOR1TAB21 PO (18:59)
[2020-09-06] MEDS ORDERED: HOME MED LIST COMPLETE! XX SCH (19:00)
[2020-09-06] MEDS: ADVAIR HFA 230/21MCG INHALER INH SCH (20:00)
[2020-09-06] MEDS ORDERED: MAALOX 30 ML SUSP *UDC PO PRN (20:15)
[2020-09-06] MEDS ORDERED: guaiFENesin ER 600 MG TAB PO PRN (20:15)
[2020-09-06] MEDS ORDERED: MOM 30ML SUSPENSION UDC PO PRN (20:15)
[2020-09-06] MEDS ORDERED: NS 500 ML IV ONE (20:30)
[2020-09-06 21:00] LABS: BLOOD UREA NITROGEN 18 MG/DL (7-18); CALCIUM LEVEL 9.2 MG/DL (8.8-10.2); CARBON DIOXIDE LEVEL 29 MEQ/L (21-32); CHLORIDE LEVEL 95 MEQ/L (98-107); CREATININE FOR GFR 0.72 MG/DL (0.55-1.30); GLOMERULAR FILTRATION RATE > 60.0 (>39); GLUCOSE, FASTING 132 MG/DL (70-100); POTASSIUM SERUM 4.6 MEQ/L (3.5-5.1); SODIUM LEVEL 131 MEQ/L (136-145)
[2020-09-06] MEDS ORDERED: THIAMINE 200MG 2ML VIAL IV SCH (21:00)
[2020-09-06 21:05] LABS: OSMOLALITY SERUM 274 MOSM/KG (280-301)
[2020-09-06] MEDS ORDERED: ALBUTEROL 90 MCG/ACT 8GM HFA INHALER INH PRN (21:50)
[2020-09-06 22:05] VITALS: BP 133/64
[2020-09-06 22:30] VITALS: O2SAT 97
[2020-09-06] MEDS: METOPROLOL TART 25 MG TABLET PO SCH (22:43)
[2020-09-06] MEDS: APIXABAN 5 MG TAB (ELIQUIS) PO SCH (22:44)
[2020-09-06] MEDS: THIAMINE INJection 500 MG in NS 100 ML IV SCH (22:44)
[2020-09-06] MEDS: DOCUSATE SODIUM 100MG CAPSULE PO SCH (22:44)
[2020-09-06] MEDS: ACETAMINOPHEN TAB 650MG DOSE (2X325MG) PO PRN (22:54)
[2020-09-06 23:30] VITALS: O2SAT 96
[2020-09-07] VITALS (9 sets, daily range): BP systolic 121–152; BP diastolic 59–67; O2SAT 94–96
[2020-09-07 02:27] LABS: BLOOD UREA NITROGEN 20 MG/DL (7-18); CALCIUM LEVEL 8.3 MG/DL (8.8-10.2); CARBON DIOXIDE LEVEL 28 MEQ/L (21-32); CHLORIDE LEVEL 101 MEQ/L (98-107); CREATININE FOR GFR 0.68 MG/DL (0.55-1.30); GLOMERULAR FILTRATION RATE > 60.0 (>39); GLUCOSE, FASTING 108 MG/DL (70-100); POTASSIUM SERUM 4.1 MEQ/L (3.5-5.1); SODIUM LEVEL 136 MEQ/L (136-145)
[2020-09-07] MEDS: ACETAMINOPHEN TAB 650MG DOSE (2X325MG) PO PRN ×3 (03:26→22:32)
[2020-09-07] MEDS: IPRATROPIUM 0.02% SOLN 0.5MG 2.5ML NEB NEB SCH ×6 (04:00→20:25)
[2020-09-07] MEDS: LEVALBUTEROL 1.25 MG/0.5 ML CONCENTRATE NEB NEB SCH ×6 (04:00→20:25)
[2020-09-07] MEDS ORDERED: LevoFLOXacin 500 MG TABLET PO SCH (06:00)
[2020-09-07] MEDS: ADVAIR HFA 230/21MCG INHALER INH SCH ×2 (07:08→20:00)
[2020-09-07] MEDS: LEVOTHYROXINE 50MCG TABLET (0.05MG) PO SCH (08:05)
[2020-09-07] MEDS: DIGOXIN 0.125 MG TAB PO SCH (08:06)
[2020-09-07] MEDS: ATORVASTATIN 20 MG TAB PO SCH (08:06)
[2020-09-07] MEDS: APIXABAN 5 MG TAB (ELIQUIS) PO SCH ×2 (08:06→21:05)
[2020-09-07] MEDS: DOCUSATE SODIUM 100MG CAPSULE PO SCH ×2 (08:06→21:05)
[2020-09-07] MEDS: FOLIC ACID 1 MG TAB PO SCH (08:06)
[2020-09-07] MEDS: MULTIVITAMINS/MINERALS THERAP 1 TAB PO SCH (08:06)
[2020-09-07] MEDS: buPROPion **XL** TABLET 150MG (WELLBUTRIN XL) PO SCH (08:06)
[2020-09-07] MEDS: METOPROLOL TART 25 MG TABLET PO SCH ×2 (08:07→21:05)
[2020-09-07] MEDS: predniSONE 10 MG TAB PO SCH (08:10)
[2020-09-07] MEDS: POTASSIUM CHLORIDE 10MEQ SR TABLET PO SCH (08:11)
[2020-09-07] MEDS: OMEPRAZOLE 20MG CAP PO SCH (08:11)
[2020-09-07] MEDS: TORSEMIDE 20 MG TAB PO SCH (08:11)
[2020-09-07 08:26] LABS: BASO % 0.2 % (0.0-1.0); HEMATOCRIT 38.4 % (36.0-47.0); HEMOGLOBIN 12.4 g/dl (12.0-15.5); LYMPH # 1.7 10^3/uL (1.5-5.0); MEAN CORPUSCULAR HEMOGLOBIN 29.5 pg (27.0-33.0); MEAN CORPUSCULAR HGB CONC 32.3 g/dl (32.0-36.5); MEAN CORPUSCULAR VOLUME 91.2 fl (80.0-96.0); NEUTROPHILS # 9.4 10^3/uL (1.5-8.5); PLATELET COUNT, AUTOMATED 489 10^3/uL (150-450); RED BLOOD COUNT 4.21 10^6/uL (4.00-5.40)
[2020-09-07 08:55] LABS: WHITE BLOOD COUNT 13.3 10^3/uL (4.0-10.0)
[2020-09-07] MEDS: THIAMINE INJection 500 MG in NS 100 ML IV SCH ×3 (09:00→21:06)
[2020-09-07 09:01] LABS: DIGOXIN LEVEL 0.9 NG/ML (0.5-2.0)
[2020-09-07] MEDS: NICOTINE 21MG/24HR 1 EA TRANSDERMAL TD SCH (10:08)
[2020-09-07] MEDS: THIAMINE 100 MG TAB PO SCH (11:16)
[2020-09-07] MEDS ORDERED: ANALGESIC BALM CRM 3OZ TOP PRN (14:40)
[2020-09-07] MEDS ORDERED: MIRTAZAPINE 7.5MG PER 1/2 TABLET PO PRN (21:40)
[2020-09-08] MEDS: IPRATROPIUM 0.02% SOLN 0.5MG 2.5ML NEB NEB SCH ×4 (03:23→11:10)
[2020-09-08] MEDS: LEVALBUTEROL 1.25 MG/0.5 ML CONCENTRATE NEB NEB SCH ×4 (03:23→11:10)
[2020-09-08 04:00] VITALS: BP 180/87
[2020-09-08 05:17] LABS: BASO # 0.1 10^3/uL (0.0-0.2); BASO % 0.6 % (0.0-1.0); EOS % 0.2 % (0.0-3.0); HEMATOCRIT 37.8 % (36.0-47.0); HEMOGLOBIN 11.9 g/dl (12.0-15.5); LYMPH % 16.8 % (24.0-44.0); MEAN CORPUSCULAR HEMOGLOBIN 29.2 pg (27.0-33.0); MEAN CORPUSCULAR HGB CONC 31.5 g/dl (32.0-36.5); MEAN CORPUSCULAR VOLUME 92.6 fl (80.0-96.0); MONO # 1.8 10^3/uL (0.0-0.8); MONO % 14.5 % (2.0-8.0); NEUTROPHILS # 8.1 10^3/uL (1.5-8.5); PLATELET COUNT, AUTOMATED 466 10^3/uL (150-450); RED BLOOD COUNT 4.08 10^6/uL (4.00-5.40)
[2020-09-08 05:20] LABS: WHITE BLOOD COUNT 12.1 10^3/uL (4.0-10.0)
[2020-09-08 05:32] LABS: BLOOD UREA NITROGEN 17 MG/DL (7-18); CALCIUM LEVEL 8.6 MG/DL (8.8-10.2); CARBON DIOXIDE LEVEL 27 MEQ/L (21-32); CHLORIDE LEVEL 108 MEQ/L (98-107); CREATININE FOR GFR 0.59 MG/DL (0.55-1.30); GLOMERULAR FILTRATION RATE > 60.0 (>39); GLUCOSE, FASTING 86 MG/DL (70-100); POTASSIUM SERUM 3.8 MEQ/L (3.5-5.1); SODIUM LEVEL 140 MEQ/L (136-145)
[2020-09-08] MEDS ORDERED: LevoFLOXacin IV 750 MG in IV 1 EA IV SCH (06:00)
[2020-09-08 08:14] VITALS: BP 123/58
[2020-09-08] MEDS: ADVAIR HFA 230/21MCG INHALER INH SCH (08:34)
[2020-09-08] MEDS: NICOTINE 21MG/24HR 1 EA TRANSDERMAL TD SCH (08:40)
[2020-09-08] MEDS: MULTIVITAMINS/MINERALS THERAP 1 TAB PO SCH (08:40)
[2020-09-08] MEDS: THIAMINE INJection 500 MG in NS 100 ML IV SCH (08:40)
[2020-09-08] MEDS: ATORVASTATIN 20 MG TAB PO SCH (08:40)
[2020-09-08 08:41] VITALS: BP 123/58
[2020-09-08] MEDS: buPROPion **XL** TABLET 150MG (WELLBUTRIN XL) PO SCH (08:41)
[2020-09-08] MEDS: METOPROLOL TART 25 MG TABLET PO SCH (08:41)
[2020-09-08] MEDS: THIAMINE 100 MG TAB PO SCH (08:41)
[2020-09-08] MEDS: LEVOTHYROXINE 50MCG TABLET (0.05MG) PO SCH (08:41)
[2020-09-08] MEDS: TORSEMIDE 20 MG TAB PO SCH (08:41)
[2020-09-08] MEDS: APIXABAN 5 MG TAB (ELIQUIS) PO SCH (08:41)
[2020-09-08] MEDS: DIGOXIN 0.125 MG TAB PO SCH (08:42)
[2020-09-08] MEDS: OMEPRAZOLE 20MG CAP PO SCH (08:42)
[2020-09-08] MEDS: FOLIC ACID 1 MG TAB PO SCH (08:42)
[2020-09-08] MEDS: POTASSIUM CHLORIDE 10MEQ SR TABLET PO SCH (08:42)
[2020-09-08] MEDS: DOCUSATE SODIUM 100MG CAPSULE PO SCH (08:42)
[2020-09-08] MEDS: predniSONE 10 MG TAB PO SCH (08:42)
[2020-09-08] MEDS ORDERED: THIA100TA PO (09:08)
[2020-09-08] MEDS ORDERED: DOK1CAP4 PO (09:08)
[2020-09-08] MEDS ORDERED: LEVO750T13 PO (09:08)
[2020-09-08] MEDS ORDERED: PRED10TA2 PO (09:08)
[2020-09-08] MEDS ORDERED: ROZE8TAB16 PO (09:08)
[2020-09-08] MEDS ORDERED: NYST50SS SS (10:12)
[2020-09-08 10:21] LABS: VITAMIN B12 LEVEL 462 PG/ML
[2020-09-08 10:22] LABS: FOLATE > 24.0 NG/ML
[2020-09-10] MEDS ORDERED: THIAMINE 200MG 2ML VIAL IV SCH (09:00)
[2020-11-12] MEDS ORDERED: LEVO250T3 PO (09:12)
== END 2020-09-08 13:50 | disposition home health service (06) | DRG 689 ==
LOC: M ED 16:34 → M ED INP 20:12 → ENRESERV 21:22 → M PCU 22:21
PROVIDERS: ADMIT Family Medicine; ATTEND Internal Medicine
DX: N39.0 Urinary tract infection, site not specified (principal); G93.41 Metabolic encephalopathy; I50.32 Chronic diastolic (congestive) heart failure; E87.1 Hypo-osmolality and hyponatremia; K21.9 Gastro-esophageal reflux disease without esophagitis; I11.0 Hypertensive heart disease with heart failure; I48.91 Unspecified atrial fibrillation; J44.9 Chronic obstructive pulmonary disease, unspecified; E78.5 Hyperlipidemia, unspecified; Z79.899 Other long term (current) drug therapy; Z88.5 Allergy status to narcotic agent; Z88.8 Allergy status to other drugs, medicaments and biological substances; G47.33 Obstructive sleep apnea (adult) (pediatric); F17.200 Nicotine dependence, unspecified, uncomplicated; F10.10 Alcohol abuse, uncomplicated; D72.829 Elevated white blood cell count, unspecified; R13.10 Dysphagia, unspecified; Z66 Do not resuscitate

== ENCOUNTER 2020-11-09 12:16 | Inpatient (IN) | payer MEDICARE ==
[~2020-11-09] VITALS: Ht 160 cm; Wt 52.5 kg
[~2020-11-09 12:16] MED LIST changes: +DOK1CAP4 PO; +LEVO500T3 PO; -LEVO500T4 PO; +LEVO750T13 PO; +NYST50SS SS; -OMEP-173 PO; +OMEP-218 PO; -POTA-151 PO; +POTA20TA6 PO; +ROZE8TAB16 PO
[2020-11-09] MEDS ORDERED: ACETAMINOPHEN TAB 650MG DOSE (2X325MG) PO ONE (13:30)
[2020-11-09] MEDS: COMBIVENT RESPIMAT 100-20MCG INHALER 4GM INH SCH ×3 (13:32→13:45)
[2020-11-09 13:35] LABS: BASO % 0.2 % (0.0-1.0); EOS % 0.1 % (0.0-3.0); HEMATOCRIT 33.5 % (36.0-47.0); HEMOGLOBIN 11.1 g/dl (12.0-15.5); LYMPH # 0.6 10^3/uL (1.5-5.0); LYMPH % 6.1 % (24.0-44.0); MEAN CORPUSCULAR HEMOGLOBIN 29.3 pg (27.0-33.0); MEAN CORPUSCULAR HGB CONC 33.1 g/dl (32.0-36.5); MEAN CORPUSCULAR VOLUME 88.4 fl (80.0-96.0); MONO # 1.1 10^3/uL (0.0-0.8); MONO % 11.5 % (2.0-8.0); NEUTROPHILS # 7.8 10^3/uL (1.5-8.5); NEUTROPHILS % 81.6 % (36.0-66.0); PLATELET COUNT, AUTOMATED 360 10^3/uL (150-450); RED BLOOD COUNT 3.79 10^6/uL (4.00-5.40); WHITE BLOOD COUNT 9.6 10^3/uL (4.0-10.0)
--- NOTE | 2020-11-09 13:50 | REP ---
INDICATION: DYSPNEA/COUGH. COMPARISON: September 06, 2020. TECHNIQUE: Portable upright AP chest radiograph. FINDINGS: EKG monitoring electrodes overlie the chest. The heart is mildly enlarged unchanged. Pulmonary vasculature is cephalized. There is no focal infiltrate. Pleural angles are sharp. IMPRESSION: Cardiomegaly and cephalization and congestion of the pulmonary vasculature. No focal infiltrate seen. <Electronically signed by Santiago Bond > 11/09/20 [id number]
[2020-11-09 14:10] LABS: BLOOD UREA NITROGEN 5 MG/DL (7-18); CREATININE FOR GFR 0.44 MG/DL (0.55-1.30); GLUCOSE, FASTING 95 MG/DL (70-100)
[2020-11-09 14:11] LABS: ALBUMIN 2.9 GM/DL (3.2-5.2); ALT/SGPT 37 U/L (12-78); BILIRUBIN,DIRECT 0.2 MG/DL (0.0-0.2); BILIRUBIN,TOTAL 0.8 MG/DL (0.2-1.0); CALCIUM LEVEL 9.1 MG/DL (8.8-10.2); CARBON DIOXIDE LEVEL 25 MEQ/L (21-32); CHLORIDE LEVEL 90 MEQ/L (98-107); CK-MB VALUE MASS 3.1 NG/ML (<3.6); CPK CREATINE PHOSPHOKINASE 71 U/L (26-192); GLOMERULAR FILTRATION RATE > 60.0 (>39); MB/CK RELATIVE INDEX 4.37 (< OR =4); NT-PRO BNP 5402 PG/ML (<125); POTASSIUM SERUM 4.4 MEQ/L (3.5-5.1); SODIUM LEVEL 126 MEQ/L (136-145); TOTAL PROTEIN 6.7 GM/DL (6.4-8.2); TROPONIN I < 0.02 NG/ML (< 0.10)
[2020-11-09] MEDS ORDERED: FUROSEMIDE 40MG/4ML VIAL (J1940) IV ONE (14:40)
--- NOTE | 2020-11-09 15:34 | HPEPDOC ---
[facility] Medical History & Physical Date of Admission Nov 09, 2020 Date of Service: Nov 09, 2020 History and Physical CHIEF COMPLAINT: Cough, shortness of breath, loose stools HISTORY OF PRESENT ILLNESS: 70-year-old female with a past medical history of CHF, atrial fibrillation, HTN, COPD, hypothyroidism, GERD, depression, and unspecified skin cancer presented to the emergency room department with complaints of increasing cough, shortness of breath, and diarrhea. Onset of symptoms started approximately 3 to 4 days ago a nd got worse today prompting her to come to the emergency room department for further work-up. She reports she is unable to walk as much as she normally is (few blocks) without coughing more than normal and feeling short of breath. She also reports to through the coughing she feels nauseated leading her to retch and bring up sputum. The sputum is clear in color. She denied any blood. She has also been having loose stools. She denied hematochezia or melena. She has not had any recent travels, sick contacts, changes in her diet. At this junction, she denies chest pain, abdominal pain, problems with urination and bowel movements Of note, patient reports drinking 3 glasses of wine daily and feels anxious if she does not. Time, she denies feeling anxious, having visual/auditory/tactile hallucinations, diaphoresis, and tremors. In the emergency room department she was noted to have elevated BNP and chest x- ray that showed pulmonary congestion. She tested negative for Covid. Code status was discussed with the patient and she wants to be DNR/DNI. In the event she cannot make medical decisions she asked for her daughter to be called. PAST MEDICAL HISTORY: As mentioned above PAST SURGICAL HISTORY: 1. Skin biopsy. SOCIAL HISTORY: She lives at home reportedly with her daughter. She endorses drinking 3 glasses of wine daily and if she misses, she feels anxious. She smokes 15 cigarettes daily. She denied recreational drug use. FAMILY HISTORY: Father had coronary artery disease and CHF. Brother 1 had coronary artery disease. Brother 2 had sudden cardiac . ALLERGIES: Please see below. REVIEW OF SYSTEMS: 10 point review of system was negative except for what is noted in the HPI HOME MEDICATIONS: Please see below. PHYSICAL EXAMINATION: VITAL SIGNS: Please see below General: Lying in bed, no acute distress Head/Neck/Throat: Trachea midline, mucous membranes moist Eyes: Sclera anicteric, no erythema or discharge appreciated bilaterally Thorax: Normal respiratory effort on room air, bibasilarly crackles appreciated, no wheezes Cardiovascular: Irregularly irregular rhythm, normal S1, S2, no JVD, radial and pedal pulses 2+, pedal edema bilateral Abdomen: Bowel sounds present, soft/nontender/nondistended Genitourinary: No CVA tenderness, no Cote in place Musculoskeletal: Moving all extremities, no edema Skin: Warm, dry Neurologic: AAOx3, speech fluent and goal-directed, no focal deficits, grossly intact LABORATORY DATA: See below. IMAGING: Chest x-ray Cardiomegaly and cephalization and congestion of the pulmonary vasculature. No focal infiltrate seen. MICROBIOLOGY: Please see below. ASSESSMENT/PLAN: #CHF exacerbation -Worsening shortness of breath upon ambulation. Elevated BNP. X-ray findings consistent with pulmonary congestion. -Earlier echo mentions LVEF of 75%. Will repeat echo during this hospitalization. -IV furosemide 40 mg daily, I/O, daily weights, fluid restriction and low-sodium diet #COPD -No signs of acute exacerbation at this time. Although she reports cough with increasing sputum she is afebrile, no infiltrates appreciated on chest x-ray, and no wheezing. She may have a viral bronchitis despite a negative respiratory panel, will check procalcitonin. -Continue with ambulatory schedule of duo-neb prn. #Viral bronchitis -Management as above #Loose stools -Check GI panel. Has not had any bm in ed. #Atrial fibrillation -Rate is controlled with digoxin and metoprolol. Systemic anticoagulation with apixaban. #Nicotine use -Nicotine patch #Alcohol use -CIWA is 0 at this time. CIWA protocol. If required will utilize lorazepam for withdrawals #Hypertension -Continue with amlodipine #Hyperlipidemia -Continue with atorvastatin #Hypothyroidism -Elevated TSH, check free T4. Continue with levothyroxine. #Depression -Continue with bupropion 150 mg daily #DVT prophylaxis -She is on Eliquis Vital Signs Vital Signs Date Time Temp Pulse Resp B/P (MAP) Pulse Ox O2 Delivery O2 Flow Rate FiO2 11/09/20 14:00 154/71 (98) 11/09/20 13:53 82 18 99 Room Air 11/09/20 12:17 98.1 Laboratory Data Labs 24H Laboratory Tests 2 11/09/20 13:25: Immature Granulocyte % (Auto) 0.5, Neutrophils (%) (Auto) 81.6H, Lymphocytes (%) (Auto) 6.1L, Monocytes (%) (Auto) 11.5H, Eosinophils (%) (Auto) 0.1, Basophils (%) (Auto) 0.2, Neutrophils # (Auto) 7.8, Lymphocytes # (Auto) 0.6L, Monocytes # (Auto) 1.1H, Eosinophils # (Auto) 0.0, Basophils # (Auto) 0.0, Nucleated Red Blood Cells % (auto) 0.0, Anion Gap 11, Glomerular Filtration Rate > 60.0, Lactic Acid Level 1.2, Calcium Level 9.1, Total Bilirubin 0.8, Direct Bilirubin 0.2, Aspartate Amino Transf (AST/SGOT) 53H, Alanine Aminotransferase (ALT/SGPT) 37, Alkaline Phosphatase 342H, Total Creatine Kinase 71, Creatine Kinase MB 3.1, Creatine Kinase MB Relative Index 4.37H, Troponin I < 0.02, YI-Ubh-R-Type Natriuretic Peptide 5402H, Total Protein 6.7, Albumin 2.9L, Albumin/Globulin Ra letitia 0.8L, Thyroid Stimulating Hormone (TSH) 4.100H 11/09/20 13:30: Urine Color YELLOW, Urine Appearance CLOUDYH, Urine pH 7.0, Urine Specific [place] 1.003, Urine Protein 2+H, Urine Glucose (UA) NEGATIVE, Urine Ketones NEGATIVE, Urine Blood 2+H, Urine Nitrite POSITIVEH, Urine Bilirubin NEGATIVE, Urine Urobilinogen 0.2, Urine Leukocyte Esterase 3+H, Urine WBC (Auto) TNTCH, Urine RBC (Auto) 13H, Urine Hyaline Casts (Auto) 0, Urine Bacteria (Auto) 2+H, Urine Squamous Epithelial Cells 0, Urine Sperm (Auto) CBC/BMP Laboratory Tests 11/09/20 13:25 Microbiology Microbiology 11/09/20 Urine Culture, Received Pending 11/09/20 Blood Culture, Received Pending 11/09/20 Respiratory Virus Panel (PCR) (DEMAR) - Final, Complete 11/09/20 Blood Culture, Received Pending Home Medications Scheduled Acetaminophen (Acetaminophen) 500 Mg Tablet, 1,000 MG PO QHS Amlodipine Besylate (Amlodipine Besylate) 10 Mg Tablet, 10 MG PO DAILY Apixaban (Eliquis) 5 Mg Tablet, 5 MG PO BID Atorvastatin Calcium (Atorvastatin Calcium) 20 Mg Tablet, 20 MG PO DAILY Bupropion Hcl (Bupropion Xl) 150 Mg Tab.er.24h, 150 MG PO QHS Digoxin (Digoxin) 125 Mcg Tablet, 125 MCG PO DAILY Levothyroxine Sodium (Synthroid) 50 Mcg Tablet, 50 MCG PO QAM Metoprolol Tartrate (Metoprolol Tartrate) 25 Mg Tablet, 25 MG PO BID Omeprazole (Omeprazole) 20 Mg Capsule.dr, 20 MG PO DAILY Potassium Chloride (Potassium Chloride) 20 Meq Tab.er.prt, 20 MEQ PO DAILY Torsemide (Torsemide) 20 Mg Tablet, 20 MG PO DAILY Scheduled PRN Albuterol Sulfate (Albuterol Sulfate Hfa) 8.5 Gm Hfa.aer.ad, 1 PUFF PO Q4H PRN for SHORTNESS OF BREATH Ipratropium/Albuterol Sulfate (Iprat-Albut 0.5-3(2.5) mg/3 ml) 3 Ml Ampul.neb, 1 VIAL NEB Q6H PRN for SOB/WHEEZING Allergies Coded Allergies: prochlorperazine (Verified Adverse Reaction, Severe, RIGIDITY OF JAW, 08/29/20) cephalexin (Verified Adverse Reaction, Mild, N/V, 08/29/20) codeine (Verified Adverse Reaction, Mild, N/V, 08/29/20) lisinopril (Verified Adverse Reaction, Mild, INCREASES POTASSIUM LEVEL, 08/29/20) meperidine (Verified Adverse Reaction, Mild, INCREASED K, 08/29/20) A-FIB/CHADSVASC A-FIB History Current/History of A-Fib/PAF?: Yes Current PO Anticoag Therapy: Yes EDY BOYKIN M.D. Nov 09, 2020 15:16
[2020-11-09] MEDS ORDERED: ACET-1415 PO (15:40)
[2020-11-09] MEDS ORDERED: HOME MED LIST COMPLETE! XX SCH (15:45)
[2020-11-09] MEDS ORDERED: IPRATROPIUM 0.5MG/ALBUTEROL 2.5MG INH SOL UD 3ML (DUONEB) NEB PRN (15:55)
--- NOTE | 2020-11-09 16:06 | REP ---
INDICATION: sob/long time smoker. COMPARISON: Comparison study January 17, 2017. TECHNIQUE: Helical scanning is acquired. 3 mm axial images are generated. Coronal and sagittal MPR and coronal MIP images are generated. FINDINGS: There is a small right pleural effusion noted. Subsegmental atelectatic changes are noted in the right lower lobe. No infiltrate is seen. There is a 4 mm pleural based nodule in the right lower lobe displayed on page 55 of 112 in series 201. There is also a noncalcified 4 mm nodule in the left lower lobe superior segment displayed on page 34 of 112. Both of these pulmonary nodules are visible on the [address] study and appear to be unchanged. No pulmonary mass lesion is seen. No other significant pulmonary nodule is noted. There is a precarinal lymph node measuring 1.3 cm in short axis dimension. This was present previously. It is slightly larger. Above this there is another lymph node with short axis dimension of 9 mm. Previously 7 mm. No definite adenopathy. Normal adrenal glands are seen. The visualized upper abdominal structures are unremarkable. IMPRESSION: Small right pleural effusion. Otherwise no acute disease. Slightly hypertrophied mediastinal lymph nodes compared to the 2017 prior study. <Electronically signed by Santiago Bond > 11/09/20 [id number]
[2020-11-09 16:20] VITALS: BP 158/75
[2020-11-09] MEDS: OMEPRAZOLE 20 MG CAP PO SCH (16:38)
[2020-11-09] MEDS: DIGOXIN 0.125 MG TAB PO SCH (16:38)
[2020-11-09] MEDS: LEVOTHYROXINE 50MCG TABLET (0.05MG) PO SCH (16:38)
[2020-11-09] MEDS: ATORVASTATIN 20 MG TAB PO SCH (16:39)
[2020-11-09 17:00] VITALS: BP 158/75
[2020-11-09] MEDS ORDERED: METOPROLOL TART 25 MG TABLET PO ONE (17:45)
[2020-11-09] MEDS: NICOTINE 21MG/24HR 1 EA TRANSDERMAL TD SCH (17:54)
[2020-11-09 18:27] LABS: FREE T4 0.96 NG/DL (0.76-1.46)
[2020-11-09] MEDS: ACETAMINOPHEN 500 MG TAB PO PRN (18:38)
[2020-11-09] MEDS: METOPROLOL TART 25 MG TABLET PO SCH (20:17)
[2020-11-09] MEDS: buPROPion **XL** TABLET 150MG (WELLBUTRIN XL) PO SCH (20:17)
[2020-11-09] MEDS: APIXABAN 5 MG TAB (ELIQUIS) PO SCH (20:17)
--- NOTE | 2020-11-09 20:43 | ECGEPIP ---
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
[2020-11-09 22:00] VITALS: BP 123/61
[2020-11-10] MEDS: ACETAMINOPHEN 500 MG TAB PO PRN ×4 (00:44→21:17)
[2020-11-10] MEDS: LEVOTHYROXINE 50MCG TABLET (0.05MG) PO SCH (05:49)
[2020-11-10 05:56] LABS: HEMATOCRIT 30.7 % (36.0-47.0); HEMOGLOBIN 10.2 g/dl (12.0-15.5); MEAN CORPUSCULAR HEMOGLOBIN 29.4 pg (27.0-33.0); MEAN CORPUSCULAR HGB CONC 33.2 g/dl (32.0-36.5); MEAN CORPUSCULAR VOLUME 88.5 fl (80.0-96.0); PLATELET COUNT, AUTOMATED 346 10^3/uL (150-450); RED BLOOD COUNT 3.47 10^6/uL (4.00-5.40); WHITE BLOOD COUNT 8.1 10^3/uL (4.0-10.0)
[2020-11-10 06:00] VITALS: BP 143/66
[2020-11-10 06:26] LABS: ALBUMIN 2.6 GM/DL (3.2-5.2); ALT/SGPT 28 U/L (12-78); BILIRUBIN,TOTAL 0.6 MG/DL (0.2-1.0); BLOOD UREA NITROGEN 6 MG/DL (7-18); CALCIUM LEVEL 8.9 MG/DL (8.8-10.2); CARBON DIOXIDE LEVEL 30 MEQ/L (21-32); CHLORIDE LEVEL 95 MEQ/L (98-107); CREATININE FOR GFR 0.62 MG/DL (0.55-1.30); GLOMERULAR FILTRATION RATE > 60.0 (>39); GLUCOSE, FASTING 81 MG/DL (70-100); MAGNESIUM LEVEL 1.3 MG/DL (1.8-2.4); PHOSPHORUS LEVEL 1.8 MG/DL (2.5-4.9); POTASSIUM SERUM 3.8 MEQ/L (3.5-5.1); SODIUM LEVEL 131 MEQ/L (136-145)
[2020-11-10] MEDS: NICOTINE 21MG/24HR 1 EA TRANSDERMAL TD SCH (08:41)
[2020-11-10] MEDS: DIGOXIN 0.125 MG TAB PO SCH (08:42)
[2020-11-10] MEDS: guaiFENesin SYRUP 200 MG/10 ML UDC PO PRN ×3 (08:42→20:46)
[2020-11-10] MEDS: ATORVASTATIN 20 MG TAB PO SCH (08:42)
[2020-11-10] MEDS: METOPROLOL TART 25 MG TABLET PO SCH ×2 (08:42→20:46)
[2020-11-10] MEDS: OMEPRAZOLE 20 MG CAP PO SCH (08:43)
[2020-11-10] MEDS: APIXABAN 5 MG TAB (ELIQUIS) PO SCH ×2 (08:43→20:44)
[2020-11-10] MEDS ORDERED: FLUBLOK(EGG FREE)(QUAD)INFLUENZA VACC 0.5ML SYRINGE 18YRS & OLDER IM ONE (09:00)
[2020-11-10] MEDS ORDERED: FUROSEMIDE 40MG/4ML VIAL (J1940) IV SCH (09:00)
--- NOTE | 2020-11-10 10:46 | IPNPDOC ---
Subjective Date Seen The patient was seen on 11/10/20. Subjective Chief Complaint/HPI Patient seen and examined at bedside this morning. She continues to have a cough, but reports improvement in her breathing and her loose stools have now resolved. She denies chest pain, abdominal pain, nausea, vomiting, problems with urination or bowel movements. Objective Physical Examination Other physical findings General: Lying in bed, no acute distress Head/Neck/Throat: Trachea midline, mucous membranes moist Eyes: Sclera anicteric, no erythema or discharge appreciated bilaterally Thorax: Normal respiratory effort on room air, bibasilarly crackles appreciated, no wheezes Cardiovascular: Irregularly irregular rhythm, normal S1, S2, no JVD, radial and pedal pulses 2+, pedal edema bilateral Abdomen: Bowel sounds present, soft/nontender/nondistended Genitourinary: No CVA tenderness, no Cote in place Musculoskeletal: Moving all extremities, no edema Skin: Warm, dry Neurologic: AAOx3, speech fluent and goal-directed, no focal deficits, grossly intact Assessment /Plan Assessment #CHF exacerbation -Continue with IV furosemide 40 mg daily; likely switch to p.o. on 11/11. Monitor I/O, daily weights. Fluid restriction and low-sodium diet -Echocardiogram pending #COPD -No signs of acute exacerbation at this time. Although she reports cough with increasing sputum she is afebrile, no infiltrates appreciated on chest x-ray, and no wheezing. She may have a viral bronchitis despite a negative respiratory panel, procalcitonin pending -schedule duo-neb #Viral bronchitis -Management as above -Covid negative #Loose stools -Resolved, suspect this was all viral related. #Atrial fibrillation -Rate is controlled with digoxin and metoprolol. Systemic anticoagulation with apixaban. #Nicotine use -Nicotine patch #Alcohol use -CIWA is 0 at this time. CIWA protocol. If required will utilize lorazepam for withdrawals #Hypertension -Continue with amlodipine #Hyperlipidemia -Continue with atorvastatin #Hypothyroidism -Elevated TSH, free T4 is within normal limit. Continue with levothyroxine. #Depression -Continue with bupropion 150 mg daily #DVT prophylaxis -She is on Eliquis Of note, patient has a very anxious daughter who may require assistance at home. Therefore geriatric social worker was consulted. Plan/VTE VTE Prophylaxis Ordered?: Yes VS, I&O, 24H, Fishbone Vital Signs/I&O Vital Signs Date Time Temp Pulse Resp B/P (MAP) Pulse Ox O2 Delivery O2 Flow Rate FiO2 11/10/20 08:42 82 143/66 11/10/20 06:00 98.3 17 96 Room Air I&O- Last 24 Hours up to 6 AM 11/10/20 06:00 Intake Total 420 ml Output Total 650 ml Balance -230 ml Laboratory Data 24H LABS Laboratory Tests 2 11/09/20 13:25: Immature Granulocyte % (Auto) 0.5, Neutrophils (%) (Auto) 81.6H, Lymphocytes (%) (Auto) 6.1L, Monocytes (%) (Auto) 11.5H, Eosinophils (%) (Auto) 0.1, Basophils (%) (Auto) 0.2, Neutrophils # (Auto) 7.8, Lymphocytes # (Auto) 0.6L, Monocytes # (Auto) 1.1H, Eosinophils # (Auto) 0.0, Basophils # (Auto) 0.0, Nucleated Red Blood Cells % (auto) 0.0, Anion Gap 11, Glomerular Filtration Rate > 60.0, Lactic Acid Level 1.2, Calcium Level 9.1, Total Bilirubin 0.8, Direct Bilirubin 0.2, Aspartate Amino Transf (AST/SGOT) 53H, Alanine Aminotransferase (ALT/SGPT) 37, Alkaline Phosphatase 342H, Total Creatine Kinase 71, Creatine Kinase MB 3.1, Creatine Kinase MB Relative Index 4.37H, Troponin I < 0.02, XJ-Ixx-K-Type Natriuretic Peptide 5402H, Total Protein 6.7, Albumin 2.9L, Albumin/Globulin Ratio 0.8L, Thyroid Stimulating Hormone (TSH) 4.100H, Free Thyroxine 0.96 11/09/20 13:30: Urine Color YELLOW, Urine Appearance CLOUDYH, Urine pH 7.0, Urine Specific [place] 1.003, Urine Protein 2+H, Urine Glucose (UA) NEGATIVE, Urine Ketones NEGATIVE, Urine Blood 2+H, Urine Nitrite POSITIVEH, Urine Bilirubin NEGATIVE, Urine Urobilinogen 0.2, Urine Leukocyte Esterase 3+H, Urine WBC (Auto) TNTCH, Urine RBC (Auto) 13H, Urine Hyaline Casts (Auto) 0, Urine Bacteria (Auto) 2+H, Urine Squamous Epithelial Cells 0, Urine Sperm (Auto) 11/09/20 15:51: 10/3/21 16:29: Methicillin-Resist S.aureus DNA PCR NOT DETECTED 11/10/20 05:35: Nucleated Red Blood Cells % (auto) 0.0, Anion Gap 6L, Glomerular Filtration Rate > 60.0, Calcium Level 8.9, Phosphorus Level 1.8L, Magnesium Level 1.3L, Total Bilirubin 0.6, Aspartate Amino Transf (AST/SGOT) 35, Alanine Aminotransferase (ALT/SGPT) 28, Alkaline Phosphatase 307H, Troponin I < 0.02, Total Protein 6.0L, Albumin 2.6L, Albumin/Globulin Ratio 0.8L CBC/BMP Laboratory Tests 11/09/20 13:25 11/10/20 05:35 Microbiology Microbiology 11/10/20 Gastrointestinal Tract Panel (PCR), Received Pending 11/09/20 Urine Culture, Received Pending 11/09/20 Blood Culture, Received Pending 11/09/20 Respiratory Virus Panel (PCR) (DEMAR) - Final, Complete 11/09/20 Blood Culture, Received Pending EDY BOYKIN M.D. Nov 10, 2020 10:46
[2020-11-10] MEDS ORDERED: POTASSIUM CHLORIDE 10MEQ SR TABLET PO ONE (13:00)
[2020-11-10] MEDS: MAG SULF 1GM/100ML (MAG RUN) 1 GM in IV 1 EA IV SCH ×2 (13:25→14:41)
[2020-11-10 14:00] VITALS: BP 120/56
[2020-11-10] MEDS ORDERED: K-PHOS ORIGINAL (POT.ACID PHOSPHATE) 500MG TAB PO ONE (14:00)
[2020-11-10] MEDS: buPROPion **XL** TABLET 150MG (WELLBUTRIN XL) PO SCH (20:44)
[2020-11-10 21:42] VITALS: BP 129/61
[2020-11-11] MEDS: ACETAMINOPHEN 500 MG TAB PO PRN ×3 (01:39→10:47)
[2020-11-11] MEDS: guaiFENesin SYRUP 200 MG/10 ML UDC PO PRN ×3 (05:45→20:52)
[2020-11-11] MEDS: LEVOTHYROXINE 50MCG TABLET (0.05MG) PO SCH (05:45)
[2020-11-11 05:48] LABS: HEMATOCRIT 31.6 % (36.0-47.0); HEMOGLOBIN 10.2 g/dl (12.0-15.5); MEAN CORPUSCULAR HGB CONC 32.3 g/dl (32.0-36.5); MEAN CORPUSCULAR VOLUME 89.8 fl (80.0-96.0); PLATELET COUNT, AUTOMATED 319 10^3/uL (150-450); RED BLOOD COUNT 3.52 10^6/uL (4.00-5.40)
[2020-11-11 05:58] VITALS: BP 138/64
[2020-11-11 06:26] LABS: BLOOD UREA NITROGEN 14 MG/DL (7-18); CALCIUM LEVEL 8.8 MG/DL (8.8-10.2); CARBON DIOXIDE LEVEL 28 MEQ/L (21-32); CHLORIDE LEVEL 98 MEQ/L (98-107); CREATININE FOR GFR 0.65 MG/DL (0.55-1.30); GLOMERULAR FILTRATION RATE > 60.0 (>39); GLUCOSE, FASTING 109 MG/DL (70-100); MAGNESIUM LEVEL 1.8 MG/DL (1.8-2.4); PHOSPHORUS LEVEL 1.3 MG/DL (2.5-4.9); POTASSIUM SERUM 3.3 MEQ/L (3.5-5.1); SODIUM LEVEL 132 MEQ/L (136-145)
[2020-11-11] MEDS ORDERED: FUROSEMIDE 40 MG TAB PO SCH (09:00)
--- NOTE | 2020-11-11 09:11 | ECHO ---
ECHOCARDIOGRAM DATE OF PROCEDURE: 11/10/2020 Age: 70 Gender: F Height: 63 inches Weight: 121 pounds Body Surface Area: 1.56 [address] Room 4215 REFERRING PHYSICIAN: Galindo Monsivais INDICATION: Congestive heart failure (CHF) MEASUREMENTS: 2D Measurements: RV - 4.4 cm LV - 4.8 cm Septum - 1.0 cm Posterior wall 1.0 cm Aortic Root 3.2 cm LA - 3.8 cm LVEF 50%-60% Doppler Measurements: AV - 1.56 m/s LVOT - 1.1 m/s LVOT diameter 1.9 cm MV-E 114 Early mitral deceleration time 208 msec E prime medial 7.7, E prime lateral 9.1 Average E/E prime ratio 13.6/PCWP - 18.7 mmHg PV - 0.98 m/s Pulmonary artery acceleration time 81 msec RVSP 45-50 mmHg IVC - 2.1 cm COMMENTS: Underlying atrial fibrillation with controlled ventricular response and no intraventricular conduction disturbance. Technically challenged study but diagnostic and useful information was still obtained. M-mode and 2-dimensional echocardiography was performed with pulse, continuous wave, color flow and tissue Doppler studies. Normal left ventricular size and wall thickness with subtle septal hypokinesis but other quinteros move normally. Septal wall motion abnormality I believe to be related to right ventricular pressure overload. Global left ventricular systolic function is retained. At least mild to moderately dilated left atrium with current Doppler evidence to suggest mean left atrial pressure upper limits of normal to slightly increased. At least mildly dilated right ventricle with adequate right ventricular free wall motion and Doppler evidence of at least moderate to moderately severe pulmonary hypertension. Mild to moderately dilated right atrium and inferior vena cava (IVC) upper limits of normal with absent respiratory collapse in keeping with elevated central venous pressure, perhaps 20 mmHg. Normal aortic dimensions. Mild aortic valvular sclerosis without stenosis and very mild insufficiency. Mild degenerative changes of her mitral valvular apparatus with very mild insufficiency. Normal-appearing tricuspid valve with mild insufficiency. Unable to detect any intracardiac mass. No pericardial effusion. MTDD
[2020-11-11] MEDS ORDERED: POTASSIUM CHLORIDE 10MEQ SR TABLET PO ONE (10:10)
[2020-11-11 10:34] LABS: ALBUMIN 2.5 GM/DL (3.2-5.2); ALT/SGPT 25 U/L (12-78); BILIRUBIN,TOTAL 0.3 MG/DL (0.2-1.0); NT-PRO BNP 5437 PG/ML (<125); TOTAL PROTEIN 5.9 GM/DL (6.4-8.2)
[2020-11-11] MEDS: ATORVASTATIN 20 MG TAB PO SCH (10:47)
[2020-11-11] MEDS: LevoFLOXacin 250 MG TABLET PO SCH (10:47)
[2020-11-11] MEDS: METOPROLOL TART 25 MG TABLET PO SCH ×2 (10:48→20:53)
[2020-11-11] MEDS: DIGOXIN 0.125 MG TAB PO SCH (10:48)
[2020-11-11] MEDS: APIXABAN 5 MG TAB (ELIQUIS) PO SCH ×2 (10:49→20:53)
[2020-11-11] MEDS: NICOTINE 21MG/24HR 1 EA TRANSDERMAL TD SCH (10:49)
[2020-11-11] MEDS: OMEPRAZOLE 20 MG CAP PO SCH (10:49)
[2020-11-11] MEDS ORDERED: POTASSIUM PHOSPHATE INJ 30 MMOL in D5W 500 ML IV ONE (12:00)
[2020-11-11] MEDS ORDERED: ACETAMINOPHEN 500 MG TAB PO PRN (13:15)
[2020-11-11] MEDS ORDERED: MIRALAX *UNIT DOSE* 17GM PACKET PO PRN (13:25)
[2020-11-11 14:00] VITALS: BP 126/59
[2020-11-11] MEDS: DOCUSATE SOD LIQ 100MG/10ML UDC PO SCH ×2 (14:51→20:52)
--- NOTE | 2020-11-11 20:02 | IPNPDOC ---
Date Seen The patient was seen on 11/11/20. Progress Note Subjective: Denies incr SOB, saturating well on RA. Transitioned to PO torsemide, replaced lytes PRN. No incr loose stools. She denies chest pain, abdominal pain, nausea, vomiting, problems with urination or bowel movements. Objective: Physical Examination VS: Please see below General: Lying in bed, no acute distress Head/Neck/Throat: Trachea midline, mucous membranes moist Eyes: Sclera anicteric, no erythema or discharge appreciated bilaterally Thorax: Normal respiratory effort on room air, bibasilarly crackles appreciated, no wheezes Cardiovascular: Irregularly irregular rhythm, normal S1, S2, no JVD, radial and pedal pulses 2+, pedal edema bilateral Abdomen: Bowel sounds present, soft/nontender/nondistended Genitourinary: No CVA tenderness, no Cote in place Musculoskeletal: Moving all extremities, no edema Skin: Warm, dry. Multiple scabbed areas on face, chronic Neurologic: AAOx3, speech fluent and goal-directed, no focal deficits, grossly intact Labs: Please see below Assessment /Plan: #CHF exacerbation -BNP similar to last, currently on RA. -+1 pitting edema b/l, no incr SOB. -PO torsemide (home med) resumed. Continue to monitor I/O, daily weights. 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 CIWA protocol. No s/s of withdrawl #Skin cancer hx -Multiple areas on face of concern, established with derm in the area who she will f/u with #Hypertension -Continue with amlodipine #Hyperlipidemia -Continue with atorvastatin #Hypothyroidism -Elevated TSH, free T4 is within normal limit. C -ontinue with levothyroxine. #Depression -Continue with bupropion 150 mg daily #DVT prophylaxis -Eliquis RESOLVED: #Loose stools DISPOSITION: Updated daughter today about improvements. PT/OT ordered, SW to reach out to her to see if there are any other needs prior to discharge back home. VS, I&O, 24H, Fishbone Vital Signs/I&O Vital Signs Date Time Temp Pulse Resp B/P (MAP) Pulse Ox O2 Delivery O2 Flow Rate FiO2 11/11/20 14:00 97.7 67 18 126/59 (81) 99 Room Air I&O- Last 24 Hours up to 6 AM 11/11/20 06:00 Intake Total 1230 ml Output Total 550 ml Balance 680 ml Laboratory Data 24H LABS Laboratory Tests 2 11/11/20 05:36: Nucleated Red Blood Cells % (auto) 0.0, Anion Gap 6L, Glomerular Filtration Rate > 60.0, Calcium Level 8.8, Phosphorus Level 1.3#L, Magnesium Level 1.8, Total Bilirubin 0.3, Aspartate Amino Transf (AST/SGOT) 21, Alanine Aminotransferase (ALT/SGPT) 25, Alkaline Phosphatase 331H, DT-Kkm-V-Type Natriuretic Peptide 5437H, Total Protein 5.9L, Albumin 2.5L, Albumin/Globulin Ratio 0.7L CBC/BMP Laboratory Tests 11/11/20 05:36 Microbiology Microbiology 11/10/20 Gastrointestinal Tract Panel (PCR) - Final, Complete 11/09/20 Urine Culture - Final, Complete Klebsiella Pneumoniae 11/09/20 Blood Culture - Preliminary, Resulted No Growth after 48 hours. All Specime... 11/09/20 Respiratory Virus Panel (PCR) (DEMAR) - Final, Complete 11/09/20 Blood Culture - Preliminary, Resulted No Growth after 48 hours. All Specime... Current Medications Current Medications Medications (Trade) Dose Ordered Sig/Panfilo Route PRN Reason Start Time Stop Time Status Last Admin Dose Admin Acetaminophen (Tylenol Tab) 500 mg Q4H PRN PO MODERATE/SEVERE PAIN (PS 5-10) 11/10/20 21:00 11/11/20 13:15 DC 11/11/20 10:47 Acetaminophen (Tylenol Tab) 500 mg Q6H PRN PO MODERATE/SEVERE PAIN (PS 5-10) 11/09/20 18:00 11/10/20 20:58 DC 11/10/20 16:11 Acetaminophen (Tylenol Tab) 1,000 mg QHSP PRN PO MODERATE PAIN (PS 5-7) 11/11/20 13:15 Albuterol/ Ipratropium (Combivent Respimat 100-20mcg) 4 puff Q20M INH 11/09/20 12:55 11/09/20 13:36 DC 11/09/20 13:45 Albuterol/ Ipratropium (Duoneb (Ipr 0.5mg/Alb 2.5mg)) 3 ml Q4HP PRN NEB SOB/WHEEZING 11/09/20 15:55 Amlodipine Besylate (Norvasc) 10 mg DAILY PO 11/09/20 09:00 11/11/20 10:48 Apixaban (Eliquis) 5 mg BID PO 11/09/20 21:00 11/11/20 10:49 Atorvastatin Calcium (Lipitor) 20 mg DAILY PO 11/09/20 09:00 11/11/20 10:47 Bupropion HCl (Wellbutrin Xl) 150 mg QHS PO 11/09/20 21:00 11/10/20 20:44 Digoxin (Lanoxin) 0.125 mg DAILY PO 11/09/20 09:00 11/11/20 10:48 Docusate Sodium (Colace Liquid) 100 mg BID PO 11/11/20 09:00 Furosemide (LASIX injection) 40 mg DAILY IV 11/10/20 09:00 11/11/20 10:11 DC 11/10/20 08:41 Furosemide (Lasix) 40 mg DAILY PO 11/11/20 09:00 11/11/20 13:15 DC 11/11/20 10:47 Guaifenesin (Robitussin) 10 ml Q4HP PRN PO COUGH 11/09/20 15:55 11/11/20 10:47 Home Med (Home Med List Complete!) ASDIRECTED XX 11/09/20 15:45 11/09/20 15:42 DC Levofloxacin (Levaquin) 250 mg DAILY@06 PO 11/11/20 06:00 11/15/20 06:01 11/11/20 10:47 Levothyroxine Sodium (Synthroid) 50 mcg QAM@0600 PO 11/09/20 06:00 11/11/20 05:45 Magnesium Sulfate/ Dextrose 1 gm/IV Miscellaneous Supplies 100 ml @ 100 mls/hr Q1H IV 11/10/20 13:00 11/10/20 14:59 DC 11/10/20 14:41 Metoprolol Tartrate (Lopressor) 25 mg BID PO 11/09/20 21:00 11/11/20 10:48 Nicotine (Nicoderm Cq 21mg) 1 patch DAILY TD 11/09/20 09:00 11/11/20 10:49 Omeprazole (PriLOSEC) 20 mg DAILY PO 11/09/20 09:00 11/11/20 10:49 Polyethylene Glycol (Miralax) 1 pkt DAILYPRN PRN PO CONSTIPATION 11/11/20 13:25 Torsemide (Demadex) 20 mg DAILY PO 11/12/20 09:00 Allergies Coded Allergies: prochlorperazine (Verified Adverse Reaction, Severe, RIGIDITY OF JAW, 08/29/20) cephalexin (Verified Adverse Reaction, Mild, N/V, 08/29/20) codeine (Verified Adverse Reaction, Mild, N/V, 08/29/20) lisinopril (Verified Adverse Reaction, Mild, INCREASES POTASSIUM LEVEL, 08/29/20) meperidine (Verified Adverse Reaction, Mild, INCREASED K, 08/29/20) Olivia Ramsey MD Nov 11, 2020 20:02
[2020-11-11] MEDS: buPROPion **XL** TABLET 150MG (WELLBUTRIN XL) PO SCH (20:52)
[2020-11-11 22:00] VITALS: BP 132/62
[2020-11-12] MEDS: LEVOTHYROXINE 50MCG TABLET (0.05MG) PO SCH (06:09)
[2020-11-12] MEDS: LevoFLOXacin 250 MG TABLET PO SCH (06:09)
[2020-11-12 06:52] LABS: HEMATOCRIT 32.4 % (36.0-47.0); HEMOGLOBIN 10.3 g/dl (12.0-15.5); MEAN CORPUSCULAR HEMOGLOBIN 29.1 pg (27.0-33.0); MEAN CORPUSCULAR HGB CONC 31.8 g/dl (32.0-36.5); MEAN CORPUSCULAR VOLUME 91.5 fl (80.0-96.0); PLATELET COUNT, AUTOMATED 319 10^3/uL (150-450); RED BLOOD COUNT 3.54 10^6/uL (4.00-5.40); WHITE BLOOD COUNT 8.9 10^3/uL (4.0-10.0)
[2020-11-12 06:53] VITALS: BP 130/67
[2020-11-12 07:46] LABS: ALBUMIN 2.5 GM/DL (3.2-5.2); ALT/SGPT 20 U/L (12-78); BILIRUBIN,TOTAL 0.3 MG/DL (0.2-1.0); BLOOD UREA NITROGEN 13 MG/DL (7-18); CALCIUM LEVEL 8.9 MG/DL (8.8-10.2); CARBON DIOXIDE LEVEL 26 MEQ/L (21-32); CHLORIDE LEVEL 102 MEQ/L (98-107); GLOMERULAR FILTRATION RATE > 60.0 (>39); GLUCOSE, FASTING 91 MG/DL (70-100); POTASSIUM SERUM 4.1 MEQ/L (3.5-5.1); SODIUM LEVEL 136 MEQ/L (136-145); TOTAL PROTEIN 5.8 GM/DL (6.4-8.2)
[2020-11-12] MEDS ORDERED: TORSEMIDE 20 MG TAB PO SCH (09:00)
[2020-11-12] MEDS ORDERED: DOCU10ELUD PO (09:12)
[2020-11-12] MEDS ORDERED: LEVO250T12 PO (09:12)
[2020-11-12] MEDS: APIXABAN 5 MG TAB (ELIQUIS) PO SCH (09:36)
[2020-11-12] MEDS: DOCUSATE SOD LIQ 100MG/10ML UDC PO SCH (09:36)
[2020-11-12] MEDS: DIGOXIN 0.125 MG TAB PO SCH (09:37)
[2020-11-12] MEDS: ATORVASTATIN 20 MG TAB PO SCH (09:37)
[2020-11-12] MEDS: OMEPRAZOLE 20 MG CAP PO SCH (09:37)
[2020-11-12 09:38] VITALS: BP 146/62
[2020-11-12] MEDS: METOPROLOL TART 25 MG TABLET PO SCH (09:38)
[2020-11-12] MEDS: NICOTINE 21MG/24HR 1 EA TRANSDERMAL TD SCH (09:38)
--- NOTE | 2020-11-12 20:21 | DS.PDOC ---
Discharge Summary General Date of Admission Nov 09, 2020 at 15:14 Date of Discharge 11/12/20 Attending Physician: Olivia Ramsey MD Discharge Summary HISTORY OF PRESENT ILLNESS: 70-year-old female with a past medical history of CHF, atrial fibrillation, HTN, COPD, hypothyroidism, GERD, depression, and unspecified skin cancer presented to the emergency room department with complaints of increasing cough, shortness of breath, and diarrhea. Onset of symptoms started approximately 3 to 4 days ago and got worse today prompting her to come to the emergency room department for further work-up. She reports she is unable to walk as much as she normally is (few blocks) without coughing more than normal and feeling short of breath. She also reports to through the coughing she feels nauseated leading her to retch and bring up sputum. The sputum is clear in color. She denied any blood. She has also been having loose stools. She denied hematochezia or melena. She has not had any recent travels, sick contacts, changes in her diet. At this junction, she denies chest pain, abdominal pain, problems with urination and bowel movements Of note, patient reports drinking 3 glasses of wine daily and feels anxious if she does not. Time, she denies feeling anxious, having visual/auditory/tactile hallucinations, diaphoresis, and tremors. In the emergency room department she was noted to have elevated BNP and chest x- ray that showed pulmonary congestion. She tested negative for Covid. Code status was discussed with the patient and she wants to be DNR/DNI. In the event she cannot make medical decisions she asked for her daughter to be called. HOSPITAL COURSE: The patient was treated for congestive heart failure with exacerbation during her hospitalization. Echocardiogram was done showing elevated pulmonary pressures and pre-existing pulmonary hypertension which was stable. BNP remained elevated but the patient was gradually weaned off oxygen. Her torsemide, which was initially held due to loose stools, was restarted. She had several electrolyte abnormalities over the course of her hospitalization which were corrected. UA was positive and the patient was treated with antibiotics. It is believed the patient probably also had bronchitis in addition to CHF and this also much improved. By 11/12/2020 the patient was on room air and tolerating all home medications nicely. She cleared physical therapy for home however, was encouraged to continue as outpatient. She was discharged home with her daughter who was updated on 11/11/2020. At the time of discharge the patient denied chest pain, shortness of breath, nausea, vomiting, diarrhea, fevers or chills. She is to follow-up with her primary care provider after discharge. PAST MEDICAL HISTORY: CHF, atrial fibrillation, HTN, COPD, hypothyroidism, GERD, depression, and unspecified skin cancer PAST SURGICAL HISTORY: 1. Skin biopsy. SOCIAL HISTORY: She lives at home reportedly with her daughter. She endorses drinking 3 glasses of wine daily and if she misses, she feels anxious. She smokes 15 cigarettes daily. She denied recreational drug use. FAMILY HISTORY: Father had coronary artery disease and CHF. Brother 1 had coronary artery disease. Brother 2 had sudden cardiac . ALLERGIES: Please see below. DISCHARGE MEDS: Please see below Physical Examination VS: Please see below General: Lying in bed, no acute distress Head/Neck/Throat: Trachea midline, mucous membranes moist Eyes: Sclera anicteric, no erythema or discharge appreciated bilaterally Thorax: Normal respiratory effort on room air, improved bibasilar crackles , no wheezes Cardiovascular: Irregularly irregular rhythm, normal S1, S2, no JVD, radial and pedal pulses 2+, pedal edema bilateral Abdomen: Bowel sounds present, soft/nontender/nondistended Genitourinary: No CVA tenderness, no Cote in place Musculoskeletal: Moving all extremities, no edema Skin: Warm, dry. Multiple scabbed areas on face, chronic Neurologic: AAOx3, speech fluent and goal-directed, no focal deficits, grossly intact Labs: Please see below Assessment /Plan: #CHF exacerbation -BNP similar to last, currently on RA. -+1 pitting edema b/l, no incr SOB. -tolerating PO torsemide (home med) resumed. -Echocardiogram done -Pt to f/u with cardiology o/p, c/w home medications, low salt diet #UTI, Klebsiella -Levofloxacin on d/c #chronic pain 2/2 to arthritis -tylenol 1 gm QHSP #COPD with likely viral bronchitis -Covid neg -On RA, no wheezing #Atrial fibrillation -Controlled -C/w digoxin and metoprolol, eliquis #Nicotine use -Smoking cessation counselling given #Alcohol use -CIWA is 0 at this time. CIWA protocol. No s/s of withdrawl #Skin cancer hx -Multiple areas on face of concern, established with derm in the area who she will f/u with #Hypertension -Continue with amlodipine #Hyperlipidemia -Continue with atorvastatin #Hypothyroidism -Elevated TSH, free T4 is within normal limit. -Continue with levothyroxine. #Depression -Continue with bupropion 150 mg daily #DVT prophylaxis -Eliquis RESOLVED: #Loose stools #electrolyte abnormality DISPOSITION: D/c home with daughter today, encourage o/p PT TIME SPENT ON DISCHARGE: 35 minutes. Vital Signs/I&Os Vital Signs Date Time Temp Pulse Resp B/P (MAP) Pulse Ox O2 Delivery O2 Flow Rate FiO2 11/12/20 09:38 77 146/62 11/12/20 06:53 97.4 20 98 Room Air I&O- Last 24 Hours up to 6 AM 11/12/20 06:00 Intake Total 1235 ml Output Total 225 ml Balance 1010 ml Laboratory Data Labs 24H Laboratory Tests 2 11/12/20 05:48: Nucleated Red Blood Cells % (auto) 0.0, Anion Gap 8, Glomerular Filtration Rate > 60.0, Calcium Level 8.9, Total Bilirubin 0.3, Aspartate Amino Transf (AST/SGOT) 16, Alanine Aminotransferase (ALT/SGPT) 20, Alkaline Phosphatase 289H, Total Protein 5.8L, Albumin 2.5L, Albumin/Globulin Ratio 0.8L CBC/BMP Laboratory Tests 11/12/20 05:48 Microbiology Microbiology 11/10/20 Gastrointestinal Tract Panel (PCR) - Final, Complete 11/09/20 Urine Culture - Final, Complete Klebsiella Pneumoniae 11/09/20 Blood Culture - Preliminary, Resulted No Growth after 72 hours. All specime... 11/09/20 Respiratory Virus Panel (PCR) (DEMAR) - Final, Complete 11/09/20 Blood Culture - Preliminary, Resulted No Growth after 72 hours. All specime... Discharge Medications Scheduled Acetaminophen (Acetaminophen) 500 Mg Tablet, 1,000 MG PO QHS, (Reported) Amlodipine Besylate (Amlodipine Besylate) 10 Mg Tablet, 10 MG PO DAILY, (Reported) Apixaban (Eliquis) 5 Mg Tablet, 5 MG PO BID, (Reported) Atorvastatin Calcium (Atorvastatin Calcium) 20 Mg Tablet, 20 MG PO DAILY, (Reported) Bupropion Hcl (Bupropion Xl) 150 Mg Tab.er.24h, 150 MG PO QHS, (Reported) Digoxin (Digoxin) 125 Mcg Tablet, 125 MCG PO DAILY, (Reported) Docusate Sodium (Docu Liquid) 50 Mg/5 Ml Liquid, 100 MG PO BID Levofloxacin (Levofloxacin) 250 Mg Tablet, 250 MG PO DAILY@06 Levothyroxine Sodium (Synthroid) 50 Mcg Tablet, 50 MCG PO QAM, (Reported) Metoprolol Tartrate (Metoprolol Tartrate) 25 Mg Tablet, 25 MG PO BID, (Reported) Omeprazole (Omeprazole) 20 Mg Capsule.dr, 20 MG PO DAILY, (Reported) Potassium Chloride (Potassium Chloride) 20 Meq Tab.er.prt, 20 MEQ PO DAILY, (Reported) Torsemide (Torsemide) 20 Mg Tablet, 20 MG PO DAILY, (Reported) Scheduled PRN Albuterol Sulfate (Albuterol Sulfate Hfa) 8.5 Gm Hfa.aer.ad, 1 PUFF PO Q4H PRN for SHORTNESS OF BREATH, (Reported) Ipratropium/Albuterol Sulfate (Iprat-Albut 0.5-3(2.5) mg/3 ml) 3 Ml Ampul.neb, 1 VIAL NEB Q6H PRN for SOB/WHEEZING, (Reported) Allergies Coded Allergies: prochlorperazine (Verified Adverse Reaction, Severe, RIGIDITY OF JAW, 08/29/20) cephalexin (Verified Adverse Reaction, Mild, N/V, 08/29/20) codeine (Verified Adverse Reaction, Mild, N/V, 08/29/20) lisinopril (Verified Adverse Reaction, Mild, INCREASES POTASSIUM LEVEL, 08/29/20) meperidine (Verified Adverse Reaction, Mild, INCREASED K, 08/29/20) Olivia Ramsey MD Nov 12, 2020 20:21
== END 2020-11-12 14:07 | disposition home or self-care (01) | DRG 292 ==
LOC: M ED 12:16 → M ED INP 15:14 → ENRESERV 15:36 → M MSPAV 16:10
PROVIDERS: ADMIT Internal Medicine; ATTEND Internal Medicine
DX: I11.0 Hypertensive heart disease with heart failure (principal); N39.0 Urinary tract infection, site not specified; I50.9 Heart failure, unspecified; J20.8 Acute bronchitis due to other specified organisms; M19.90 Unspecified osteoarthritis, unspecified site; F17.210 Nicotine dependence, cigarettes, uncomplicated; J44.9 Chronic obstructive pulmonary disease, unspecified; I48.91 Unspecified atrial fibrillation; F10.10 Alcohol abuse, uncomplicated; E78.5 Hyperlipidemia, unspecified; F32.9 Major depressive disorder, single episode, unspecified; Z79.899 Other long term (current) drug therapy; Z88.5 Allergy status to narcotic agent; Z88.8 Allergy status to other drugs, medicaments and biological substances; Z66 Do not resuscitate; E03.9 Hypothyroidism, unspecified; I27.20 Pulmonary hypertension, unspecified; K21.9 Gastro-esophageal reflux disease without esophagitis

== ENCOUNTER 2020-12-04 15:37 | Inpatient (IN) | payer MEDICARE ==
[~2020-12-04] VITALS: Ht 157.5 cm; Wt 50.1 kg
[~2020-12-04 15:37] MED LIST changes: +ACET-1415 PO; +DOCU10ELUD PO; +LEVO250T12 PO; +NICOTINE 14 MG/24 HR TRANSDERMAL TD PRN
[2020-12-04] MEDS ORDERED: ONDANSETRON 4 MG TAB PO ONE (16:25)
--- OUTSIDE RECORDS SUMMARY | 2020-12-04 16:26 | CCD ---
Author Author [facility] Organization [facility] Address Unknown Phone Unavailable Care Team Providers Care Bath Steward Name Role Phone Magy Alvarado Unavailable PROBLEMS Type Condition ICD9-CM Code [id number] Code Onset Dates Condition S tatus W/U Status Risk SNOMED Code Notes Problem Osteopenia M85.80 Active confirmed 674891775 Problem Essential hypertension I10 Active confirmed 64822127 Problem Chronic obstructive pulmonary disease, unspecified COPD ty pe J44.9 Active confirmed 05711770 Problem Alcohol abuse F10.10 Active confirmed 395626 05 Problem Acquired hypothyroidism E03.9 Active confirmed 148461068 Problem Basal cell carcinoma C44.91 Active confirmed 769297637 Problem Tobacco dependence F17.200 Active confirmed 43657235 Problem Dysthymia F34.1 Active confirmed 77936704 Problem Uncomplicated alcohol dependence F10.20 Active conf irmed 38604406 Problem Vitamin D deficiency E55.9 Active confirmed 55467466 Problem Hyperlipidemia, unspecified hyperlipidemia type E7 8.5 Active confirmed 36991210 Problem Dysphagia, unspecified type R13.10 Active confirmed 80205952 Problem 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 A ctive confirmed 225827169 Problem Mixed hyperlipidemia E78.2 Active confirmed 763210697 Problem Chronic obstruct airways disease J44.9 Active conf irmed Problem Gastroesophageal reflux disease without esophagitis K21.9 Active confirmed 933290060 Problem Stress incontinence, Female 625.6 Active confirmed 85662721 Problem COPD exacerbation J44.1 Active confirmed 19 6742108 Problem Adjustment disorder with other symptom F43.29 A ctive confirmed 06868633 Problem History of skin cancer Z85.828 Active confirmed 373238830 Problem Chronic atrial fibrillation I48.20 Active confirmed 651893874 ALLERGIES Allergen (clinical drug ingredient) Drug/Non Drug Allergy do cumented on EMR Reaction Allergy Type Onset Date Status meperidine Meperidine Unknown Drug Allergy Active codeine Codeine Unknown Drug Allergy Active lisinopril Lisinopril([facility] Code:[address]-42) hyperkalemia Drug Aller gy Active cephalexin Cephalexin Unknown Drug Allergy Active Keflex Nausea Drug Allergy Active Compazine ridigity Drug Allergy Active ENCOUNTERS from 1950 to 2020-12-02 Encounter Location Date Provider Diagnosis [facility] [address] [facility] [phone] [place] [address] Nov, [facility] discharge follow-up Z09 ; History of skin cancer Z85.828 and Chronic obstructive pulmonary disease, unspecified COPD type J44.9 IMMUNIZATIONS Vaccine Route Administration Date Status Influenza 18 yrs & older Flublok IM Intramuscular Nov 14, 2018 Administered Influenza 18 yrs & older Flublok IM Intramuscular Feb 13, 2018 Administered Influenza (High Dose 65 & up) IM Intramuscular April 15, 2016 A dministered Influenza (High Dose 65 & up) IM Intramuscular Nov 27, 2013 A dministered Pneumococcal Adult 0.5mL Pneumovax 23 IM Intramuscular Mar 28 015 Administered Pneumococcal 0.5mL Prevnar 13 IM Intramuscular Sep 26, 2015 A dministered SOCIAL HISTORY Tobacco Use: Social History Observation Description Date Details (start date - stop date) Current Smoker Sex Assigned At : Social History Observation Description Sex Assigned At Unknown Education: Question Answer Notes Level of Education: Professional Schools/Masters/PhD Audit Question Answer Notes Total Score: 8 Interpretation: Simple Advice Language: Question Answer Notes Languages spoken: Romansh Pentecostalism: Question Answer Notes Pentecostalism 13 Lutheran Sexual Hx: Question Answer Notes Had sex [...] Answer Notes Are you a: current smoker 1 ppd Patient counseled on the dangers of tobacco use and urged to quit: 06/12/2020 How many cigarettes a day do you smoke? 11-20 Are you interested in quitting? Ready to quit Counseled the patient on tobacco use, cessation provided 07/2020 REASON FOR REFERRAL from 1950 to 2020-12-02 Reason 70yo female w/ hx skin cance r, existing pt, requires new referral for onging care |[facility] Dermatology, established w/ E. Linwood) Diagnosis 1 History of skin cancer (Z85. 828) Referral Organization [facility] Marissa Referring Provider First Name Magy Referring Provider Last Name Christiano Referring Provider Specialty Family Medicine Referred Organization [facility] Dermatology Referred Provider Juan Palumbo Erin Referred Address [address] [place] [address],,[place], [place],[address] Referred Provider Specialty Dermatology Referral Priority Routine General Notes JakeAida alexander 11/28/2020 11 :34:58 AM > Sent VITAL SIGNS Weight 118.8 lbs Nov, Weight-kg 53.89 kg Nov, Height 64.5 in Nov, BMI 20.07 kg/m2 Nov, Heart Rate 72 /min Nov, Respiratory Rate 17 /min Nov, Temperature 98.0 degrees Fahrenheit Nov, Oximetry 98 Nov, Blood pressure systolic 161 mm Hg Nov, Blood pressure diastolic 75 mm Hg Nov, MEDICATIONS Medication SIG (Take, Route, Frequency, Duration) Notes Start Da te End Date Status Levothyroxine Sodium 50 MCG 1 tablet in the morning on an empty stomach Orally Once a day for 90 days Active Thera M Plus - 1 tab Orally Daily Apr, Active Eliquis 5 MG 1 tab Orally twice daily for 90 days Active Digoxin 125 MCG 1 tablet Orally Once a day for 90 day(s) on discharge from [facility] on 06/05/20 May, Active Acetaminophen 500 MG 2 caps Orally at hs 23 Oct, 2018 Active Potassium Chloride ER 20 MEQ 1 tablet with food Orally Once a day for 30 day(s) May, Active Ipratropium-Albuterol 0.5-2.5 (3) MG/3ML 3 ml as needed Inha lation twice daily Apr, Active Omeprazole 20 MG 1 capsule 30 minutes before morning meal Orally Once a day for 90 day(s) Mar, Active Atorvastatin Calcium 20 MG 1 tablet Orally Once a day for 90 day(s) UNSURE OF DOSE Aug, Active amLODIPine Besylate 10 MG 1 tablet Orally Once a day for 90 day( s) Aug, Active Docusate Sodium 50 MG/5ML 10 ml as needed Orally twice day x 14 days Not-Taking PreserVision AREDS - 1 tab Orally Daily for 90 day(s) 2020 Active levoFLOXacin 250 MG 2 tablets Orally Once a day for 10 day(s ) patient came home on, has 2 days left Not-Taking Torsemide 20 MG 1 tab Orally Daily for 90 day(s) Apr, Active Metoprolol Tartrate 25 MG 1 tablet with food Orally Twice a day Active Albuterol Sulfate HFA 108 (90 Base) MCG/ACT 1 puff as needed Inhalation every 4 hrs for 30 Days June, Active Fluconazole 150 MG 1 tablet Orally one dose, repeat in 72 hours for 4 days Nov, Active Ketoconazole 2 % 1 application Externally to perineal area Once a day for 21 day(s) Nov, Active Advair HFA 230-21 MCG/ACT 2 puffs Inhalation Twice a day Active buPROPion HCl ER (Smoking Det) 150 MG 1 tablet in the morning Orally Once a day for 30 day(s) Active PROCEDURES No Information RESULTS No Results REASON FOR VISIT tcm/hospital discharge 11/12/20 copd ex- runny nose MEDICAL (GENERAL) HISTORY Type Description Date Medical [...] NU & BSO Surgical History colonoscopy 07/22/2010 Surgical History Broke left arm needed surgery 03/24/20 Hospitalization History pneumonia 01/2017 Hospitalization History COPD exascerbation 10/23/18-10/31/18 Hospitalization History CHF 04/25/20-04/27/20 Hospitalization History CHF 08/29/2020- 021 Hospitalization History CHF 09/05/2020-8/2/20 21 Hospitalization History COPD - [facility] 11/09-11/12/20 Goals Section No Information Health Concerns No Information MEDICAL EQUIPMENT No Information MENTAL STATUS No Information FUNCTIONAL STATUS No Information ASSESSMENTS Encounter Date Diagnosis Assessment Notes Treatment Notes Treatm ent Clinical Notes Nov, History of skin cancer (ICD-10 - Z85.828) referral required for ongoing care, placed Nov, Hospital discharge follow-up (ICD-10 - Z09) Appears to be at baseline at this time. Encouraged pt to continue to follow fluid and sodium restrictions per cardiology. Encouraged follow up with cardiology. ED for changing/worsening sxs. Nov, Chronic obstructive pulmonar y disease, unspecified COPD type (ICD- 10 - J44.9) see notes above PLAN OF TREATMENT Medication Medication Name Sig Start Date Stop Date Fluconazole 150 MG 1 tablet Orally one dose, repeat in 72 h ours for 4 days Nov, Ketoconazole 2 % 1 application Externally to perineal area Once a day for 21 day(s) Nov, Treatment Notes Assessment Notes Clinical Notes History of skin cancer referral required for ongoing care, placed Hospital discharge follow-up Appears to be at baseline at this time. Encouraged pt to continue to follow fluid and sodium restrictions per cardiology. Encouraged follow up with cardiology. ED for changing/worsening sxs. Chronic obstructive pulmonary disease, unspecified COPD type see notes above Referrals Referral Date Details 70yo female w/ hx skin cance r, existing pt, requires new referral for onging care |[facility] Dermatology, established w/ EMariaelena Palumbo), Marisa Palumbo, [address] [place], [address], Next Appt Details per reg FU schedule Reason: Provider Name:Magy Alvarado, 02:00:00 PM, [address] [facility], , [place], [address], Insurance Providers Payer Name Payer Address Payer Phone Insured Name Patient Relati onship to Insured Coverage Start Date Coverage End Date [employer] [address] [address] [facility] [address] [phone] TRE BOYER"
--- OUTSIDE RECORDS SUMMARY | 2020-12-04 16:26 | CCD ---
Author Author [facility] Organization [facility] Address Unknown Phone Unavailable Care Team Providers Care Dental Secretary Name Role Phone Magy Alvarado Unavailable PROBLEMS Type Condition ICD9-CM Code [id number] Code Onset Dates Condition S tatus W/U Status Risk SNOMED Code Notes Problem Osteopenia M85.80 Active confirmed 917318081 Problem Essential hypertension I10 Active confirmed 51464118 Problem Chronic obstructive pulmonary disease, unspecified COPD ty pe J44.9 Active confirmed 73373086 Problem Alcohol abuse F10.10 Active confirmed 746974 05 Problem Acquired hypothyroidism E03.9 Active confirmed 924825858 Problem Basal cell carcinoma C44.91 Active confirmed 726295367 Problem Tobacco dependence F17.200 Active confirmed 40358083 Problem Dysthymia F34.1 Active confirmed 55132864 Problem Uncomplicated alcohol dependence F10.20 Active conf irmed 68916359 Problem Vitamin D deficiency E55.9 Active confirmed 90684422 Problem Hyperlipidemia, unspecified hyperlipidemia type E7 8.5 Active confirmed 00552772 Problem Dysphagia, unspecified type R13.10 Active confirmed 11428577 Problem 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 A ctive confirmed 626066475 Problem Mixed hyperlipidemia E78.2 Active confirmed 509598527 Problem Chronic obstruct airways disease J44.9 Active conf irmed 33863623 Problem Gastroesophageal reflux disease without esophagitis K21.9 Active confirmed 055618451 Problem Stress incontinence, Female 625.6 Active confirmed 66684979 Problem COPD exacerbation J44.1 Active confirmed 19 3836439 Problem Adjustment disorder with other symptom F43.29 A ctive confirmed 56537824 Problem History of skin cancer Z85.828 Active confirmed 044478901 Problem Chronic atrial fibrillation I48.20 Active confirmed 876394634 ALLERGIES Allergen (clinical drug ingredient) Drug/Non Drug Allergy do cumented on EMR Reaction Allergy Type Onset Date Status meperidine Meperidine Unknown Drug Allergy Active codeine Codeine Unknown Drug Allergy Active lisinopril Lisinopril([facility] Code:[address]-89) hyperkalemia Drug Aller gy Active cephalexin Cephalexin Unknown Drug Allergy Active Keflex Nausea Drug Allergy Active Compazine ridigity Drug Allergy Active ENCOUNTERS from 1950 to 2020-10-08 Encounter Location Date Provider Diagnosis [facility] [address] [facility] [phone] [place] [address] Sep, Magy Alvarado Essential hypertension I10 IMMUNIZATIONS Vaccine Route Administration Date Status Influenza [...] Advice Language: Question Answer Notes Languages spoken: Niuean Restorationist: Question Answer Notes Restorationist 13 Pentecostalism Sexual Hx: Question Answer Notes Had sex [...] use, cessation provided 07/2020 REASON FOR REFERRAL No Information VITAL SIGNS No information MEDICATIONS Medication SIG (Take, Route, Frequency, Duration) Notes Start Da te End Date Status Potassium Chloride ER 20 MEQ 1 tablet with food Orally Once a day for 30 day(s) discharge on [facility] 06/05/20 May, Active predniSONE 10 MG 1 tablet Orally Take 4 tabs daily x 3 days, then 3 tabs daily for 3 days, then 2 tabs daily for 3 days , then 1 tabs daily for 3 days Aug, Active Nicotine Step 1 21 MG/24HR 1 patch to skin Transdermal Once a day for 30 day(s) as needed daily x 7 days on d/c from [facility] 09/02Aug, Active Atorvastatin Calcium 20 MG 1 tablet Orally Once a day for 90 day(s) on discharge 40 mg dosage Aug, Active Acetaminophen 325 MG 650 mg Orally every 4 hrs prn pain/fever Oct, Active Digoxin 125 MCG 1 tablet Orally Once a day for 90 day(s) on discharge from [facility] on 06/05/20 May, Active Metoprolol Tartrate 25 MG 1 tablet with food Orally Twice a day for 90 hosp d/c 04/28/20= 50 mg qd Active Fluconazole 200 MG 1 tablet Orally 1 pill daily for 30 days Feb, Unknown Wellbutrin XL 150 MG 1 tablet in the morning Orally Once a day f or 90 day(s) Apr, Unknown Ipratropium-Albuterol 0.5-2.5 (3) MG/3ML 3 ml as needed Inha lation twice daily Apr, Active amLODIPine Besylate 10 MG 1 tablet Orally Once a day for 90 day(s) Medication increased om 09/02/20 to 10 mg once daily Aug, Active Torsemide 20 MG 1 tab Orally Daily for 90 day(s) togethe r with 10 for total of 30 daily Apr, Active Omeprazole 20 MG 1 capsule 30 minutes before morning meal Orally Once a day for 90 day(s) Mar, Active Albuterol Sulfate HFA 108 (90 Base) MCG/ACT 1 puff as needed Inhalation every 4 hrs for 30 Days June, Active Thera M Plus - 1 tab Orally Daily Apr, Unknown Torsemide 10 MG 1 tablet Orally Once a day for 30 day(s) Active PreserVision AREDS - 1 tab Orally Daily for 90 day(s) 22 M 2020 Active Levothyroxine Sodium 50 MCG 1 tablet in the morning on an empty stomach Orally Once a day for 90 days hosp d/c 04/28/20= 50 mcg qd Active Eliquis 5 MG 1 tab Orally twice daily for 90 days Active buPROPion HCl ER (Smoking Det) 150 MG 1 tablet in the morning Orally Once a day for 30 day(s) Active Advair HFA 230-21 MCG/ACT 2 puffs Inhalation Twice a day Active PROCEDURES No Information RESULTS No Results REASON FOR VISIT Multiple refills MEDICAL (GENERAL) HISTORY Type Description Date Medical [...] History CHF 08/29/2020- 021 Hospitalization History CHF 09/05/2020-09/09/19 21 Goals Section No Information Health Concerns No Information MEDICAL EQUIPMENT No Information MENTAL STATUS No Information FUNCTIONAL STATUS No Information ASSESSMENTS Encounter Date Diagnosis Assessment Notes Treatment Notes Treatm ent Clinical Notes Sep, Essential hypertension (ICD-10 - I10) PLAN OF TREATMENT Medication Medication Name Sig Start Date Stop Date Atorvastatin Calcium 20 MG 1 tablet Orally Once a day for 90 day(s) Aug, Eliquis 5 MG 1 tab Orally twice daily for 90 days amLODIPine Besylate 10 MG 1 tablet Orally Once a day for 90 day( s) Aug, Insurance Providers Payer Name Payer Address Payer Phone Insured Name Patient Relati onship to Insured Coverage Start Date Coverage End Date [facility] [id number] [facility] [id number] TRE BOYER
--- OUTSIDE RECORDS SUMMARY | 2020-12-04 16:26 | CCD ---
Author Author [facility] Organization [facility] Address Unknown Phone Unavailable Care Team Providers Care Assistant Commissioner Name Role Phone Magy Alvarado Unavailable PROBLEMS Type Condition ICD9-CM Code [id number] Code Onset Dates Condition S tatus W/U Status Risk SNOMED Code Notes Problem Osteopenia M85.80 Active confirmed 829540313 Problem Essential hypertension I10 Active confirmed 95276538 Problem Chronic obstructive pulmonary disease, unspecified COPD ty pe J44.9 Active confirmed 81021828 Problem Alcohol abuse F10.10 Active confirmed 906041 05 Problem Acquired hypothyroidism E03.9 Active confirmed 743540284 Problem Basal cell carcinoma C44.91 Active confirmed 025191058 Problem Tobacco dependence F17.200 Active confirmed 49737691 Problem Dysthymia F34.1 Active confirmed 68204908 Problem Uncomplicated alcohol dependence F10.20 Active conf irmed 59549245 Problem Vitamin D deficiency E55.9 Active confirmed 02372855 Problem Hyperlipidemia, unspecified hyperlipidemia type E7 8.5 Active confirmed 90790904 Problem Dysphagia, unspecified type R13.10 Active confirmed 25390886 Problem 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 A ctive confirmed 450245574 Problem Mixed hyperlipidemia E78.2 Active confirmed 432986154 Problem Chronic obstruct airways disease J44.9 Active conf irmed 88699154 Problem Gastroesophageal reflux disease without esophagitis K21.9 Active confirmed 461516870 Problem Stress incontinence, Female 625.6 Active confirmed 31450480 Problem COPD exacerbation J44.1 Active confirmed 19 7158151 Problem Adjustment disorder with other symptom F43.29 A ctive confirmed 39184650 Problem History of skin cancer Z85.828 Active confirmed 907127915 Problem Chronic atrial fibrillation I48.20 Active confirmed 033888715 ALLERGIES Allergen (clinical drug ingredient) Drug/Non Drug Allergy do cumented on EMR Reaction Allergy Type Onset Date Status meperidine Meperidine Unknown Drug Allergy Active codeine Codeine Unknown Drug Allergy Active lisinopril Lisinopril([facility] Code:[address]-68) hyperkalemia Drug Aller gy Active cephalexin Cephalexin Unknown Drug Allergy Active Keflex Nausea Drug Allergy Active Compazine ridigity Drug Allergy Active ENCOUNTERS from 1950 to 2020-09-15 Encounter Location Date Provider Diagnosis [facility] [address] [facility] [phone] [place] [address] Sep, [facility] discharge follow-up Z09 and Chronic obstruct airways disease J44.9 IMMUNIZATIONS Vaccine Route Administration Date Status [...] Advice Language: Question Answer Notes Languages spoken: Slovenian Sabianism: Question Answer Notes Sabianism 13 Amish Sexual Hx: Question Answer Notes Had sex [...] FOR REFERRAL No Information VITAL SIGNS Weight 115.2 lbs Sep, Height 64.5 in Sep, BMI 19.47 kg/m2 Sep, Heart Rate 79 /min Sep, Respiratory Rate 18 /min Sep, Temperature 97.9 degrees Fahrenheit Sep, Oximetry 100 Sep, Blood pressure systolic 157 mm Hg Sep, Blood pressure diastolic 69 mm Hg Sep, MEDICATIONS Medication SIG (Take, Route, Frequency, Duration) Notes Start Da te End Date Status Potassium Chloride ER 20 MEQ 1 tablet with food Orally Once a day for 30 day(s) discharge on [facility] 06/05/20 May, Active Atorvastatin Calcium 20 MG 1 tablet Orally Once a day for 30 day(s) on discharge 40 mg dosage Aug, Not-Taking Nicotine Step 1 21 MG/24HR 1 patch to skin Transdermal Once a day for 30 day(s) as needed daily x 7 days on d/c from [facility] 09/02Aug, Active amLODIPine Besylate 10 MG 1 tablet Orally Once a day Medicat ion increased om 09/02/20 to 10 mg once daily Aug, Active Acetaminophen 325 MG 650 mg Orally every 4 hrs prn pain/fever Oct, Active Digoxin 125 MCG 1 tablet Orally Once a day for 90 day(s) on discharge from [facility] on 06/05/20 May, Active Metoprolol Tartrate 25 MG 1 tablet with food Orally Twice a day for 90 hosp d/c 04/28/20= 50 mg qd Active Eliquis 5 MG 1 tab Orally twice daily Active Wellbutrin XL 150 MG 1 tablet in the morning Orally Once a day f or 90 day(s) Apr, Unknown Fluconazole 200 MG 1 tablet Orally 1 pill daily for 30 days Feb, Unknown PreserVision AREDS - 1 tab Orally Daily for 90 day(s) 2020 Active Torsemide 20 MG 1 tab Orally Daily for 90 day(s) togethe r with 10 for total of 30 daily Apr, Active Omeprazole 20 MG 1 capsule 30 minutes before morning meal Orally Once a day for 90 day(s) Mar, Active Advair HFA 230-21 MCG/ACT 2 puffs Inhalation Twice a day Active Thera M Plus - 1 tab Orally Daily Apr, Unknown Torsemide 10 MG 1 tablet Orally Once a day for 30 day(s) Active Albuterol Sulfate HFA 108 (90 Base) MCG/ACT 1 puff as needed Inhalation every 4 hrs for 30 Days June, Active Levothyroxine Sodium 50 MCG 1 tablet in the morning on an empty stomach Orally Once a day for 90 days hosp d/c 04/28/20= 50 mcg qd Active Ipratropium-Albuterol 0.5-2.5 (3) MG/3ML 3 ml as needed Inha lation twice daily Apr, Active buPROPion HCl ER (Smoking Det) 150 MG 1 tablet in the morning Orally Once a day for 30 day(s) Active predniSONE 10 MG 1 tablet Orally Take 4 tabs daily x 3 days, then 3 tabs daily for 3 days, then 2 tabs daily for 3 days , then 1 tabs daily for 3 days Aug, Active PROCEDURES No Information RESULTS No Results REASON FOR VISIT copd; DC''d 09/02/2020 MEDICAL (GENERAL) HISTORY Type Description Date Medical History hypertension Medical History Tobacco dependence Medical History hyperlipidemia Medical History hiatal hernia/ h/o gastritis Medical History osteopenia Medical History COPD Medical History heavy ETOH use per dtr 01/23 Medical History CAP 01/23 (admitted) Medical History hypothyroidism Medical History SCC of the face x 2 Surgical History T & A 1967 Surgical History NU & BSO 1989' Surgical History colonoscopy 07/22/2010 Surgical History Broke [...] Treatment Notes Treatm ent Clinical Notes Sep, Hospital discharge follow-up (ICD-10 - Z09) Appears to be returning to baseline. Asymptomatic as it pertains to urinary sxs, requesting UA. She does have weekly visit. She had initial consult , however has been hospitalized twice recently and therefore unable to begin PT/OT. Unremarkable exam today, UA negative. Plan continue to follow fluid/sodium restriction per cardiology. Referral placed on 09/09/2020 for pulmonology consultation, awaiting contact. Sep, Chronic obstruct airways disease (ICD-10 - J44.9 ) PLAN OF TREATMENT Treatment Notes Assessment Notes Clinical Notes Hospital discharge follow-up Appears to be returning to baseline. Asymptomatic as it pertains to urinary sxs, requesting UA. She does have weekly visit. She had initial consult , however has been hospitalized twice recently and therefore unable to begin PT/OT. Unremarkable exam today, UA negative. Plan continue to follow fluid/sodium restriction per cardiology. Referral placed on 09/09/2020 for pulmonology consultation, awaiting contact. Treatment Notes Test Name Order Date Urinalysis, no Micro 2020-09-11 Next Appt Details per reg FU schedule Reason: Provider Name:Magy Alvarado, 10:30:00 AM, [address] [facility], , [place], [address], Insurance Providers Payer Name Payer Address Payer Phone Insured Name Patient Relati onship to Insured Coverage Start Date Coverage End Date [employer] [facility] [address] [address] [facility] [address] [phone] TRE BOYER
--- OUTSIDE RECORDS SUMMARY | 2020-12-04 16:26 | CCD | Continuity of Care Document ---
Author Author Danielle LOCKETT Organization Unknown Address [address] [place] [address] Phone [phone] Care Team Providers Care Automobile Wrecker Name Role Phone Wilner Arriola DO AUTM [phone] Magy Alvarado AUTM [phone] Problems Active Problems Provider Date Atrial fibrillation JORGE Alfonso Onset: 04/29/2020 Essential hypertension JORGE Alfonso Onset: 021 Electrocardiogram abnormal JORGE Alfonso Onset: Alcohol-induced psychosis JORGE Alfonso Onset: 04/08 Tobacco user JORGE Alfonso Onset: 04/29/2020 Counseling about tobacco use JORGE Alfonso Onset: 0 04/29/2020 Dietary management surveillance JORGE Alfonso Onset : 04/29/2020 Chronic diastolic heart failure JORGE Alfonso Onset : 04/29/2020 Social History Type Date Description Comments Sex Unknown ETOH Use Consumes 3 glasses of wine per d ay Tobacco Use Start: Unknown Patient is a current smoker, smo kes every day started at age 17, smokes about 1.5ppd Smoking Status Reviewed: 04/29/20 Patient is a current smoker, smokes every day started at age 17, smokes about 1.5ppd Exercise Type/Frequency Walks sporadically Exercise Type/Frequency Does housework twice a w [place] Exercise Limitations Other legs - swel ling and pain Exercise Limitations Fatigue Allergies, Adverse Reactions, Alerts Active Allergies Reaction Severity Comments Date Compazine jaw rigidity 07/20/2010 Codeine nausea 07/20/2010 Demerol nausea 08/02/2019 Medications Active Medications SIG Qnty Indications Ordering Provide r Date Klor-Con M20 20Meq Tablets ER 1 by mouth every day 90tabs Simon Douglas MD 08/19/2020 Torsemide 10mg Tablets 1 by mouth once daily as needed for lower extremity edema 90tabs Simon Douglas MD 06/10/2020 Bupropion Hydrochloride ER (XL) 150mg Tablets ER 24HR 1 by mouth every day Unknown 021 Preservision Areds 2 Areds 2 Capsu les 1 by mouth Once a day Unknown 06/09/2020 Digox 125mcg Tablets 1 by mouth every day 90tabs JORGE Alfonso 06/09/2020 Prednisone 10mg Tablets 1 by mouth every day Unknown 06/09/2020 Metoprolol Tartrate 25mg Tablets 2 by mouth once a day 180tabs JORGE Alfonso 04/29/19 [address] 1 by mouth every day Unknown 04/28/2020 Acetaminophen 325mg Tablets 2 every 4 hours as needed Unknown 04/28/2020 Torsemide 20mg Tablets 1 by mouth every day 90tabs JORGE Alfonso 1 Ipratropium [place]/Albuterol Sulfate 0.5-2.5(3)mg/3ML Solution 1 nebulizer treatment 4 times a day (wit h each meal and bedtime). Unknown 04/28/2020 Eliquis 5mg Tablets 1 by mouth twice a day 180tabs I48.91 JORGE Alfonso 0 Levothyroxine Sodium 50mcg Tablets 1 by mouth every day Unknown 08/01/2019 Multivitamin Adult Tablets 1 by mouth every day Unknown 08/01/2019 Amlodipine Besylate 5mg Tablets 1 by mouth every day Unknown 08/01/2019 History Medications Klor-Con 20Meq Packet 1 by mouth every day 90units Simon Douglas MD 06/10/2020 - 08/19/2020 Potassium Chloride ER 20Meq Tablet s ER 1 by mouth every day Unknown 04/28/2020 - 06/10/2020 Immunizations Description No Information Available Vital Signs Date Vital Result Comment 09/11/2020 11:45am Weight 112.00 lb Home Weight 115lb Height 62 inches 5'2" BMI (Body Mass Index) 20.5 kg/m2 Heart Rate 78 /min 06/10/2020 2:10pm Weight 107.00 lb Height 62 inches 5'2" BMI (Body Mass Index) 19.6 kg/m2 BP Systolic Sitting 138 mmHg Ra, small cuff (pedi atric) BP Diastolic Sitting 70 mmHg Ra, small cuff (ped iatric) Results Test Acquired Date Facility Test Result H/L Range Note Basic Metabolic Panel 09/08/2020 [facility] Glucose 86 Blood Urea Nitrogen 17 Creatinine 0.59 Sodium 140 Potassium 3.8 Chloride 108 Carbon Dioxide 27 Calcium 8.6 GFR (Calculated) >60.0 CBC without Differential 09/08/2020 [facility] White Blood Count 12.1 Red Blood Count 4.08 Platelets 466 Hemoglobin 11.9 Hematocrit 37.8 Laboratory test finding 09/07/2020 [facility] NT Probnp QN Ser/Plas 3057 Digoxin Level 0.9 CBC without Differential 09/07/2020 [facility] White Blood Count 13.3 Red Blood Count 4.21 Platelets 489 Hemoglobin 12.4 Hematocrit 38.4 Basic Metabolic Panel 09/07/2020 [facility] Glucose 108 Blood Urea Nitrogen 20 Creatinine 0.68 Sodium 136 Potassium 4.1 Chloride 101 Carbon Dioxide 28 Calcium 8.3 GFR (Calculated) >60.0 CBC without Differential 06/03/2020 [facility] - not inter faced (315)- - White Blood Count 8.8 5.0-10.0 Red Blood Count 3.36 Low 4.00-5.40 Platelets 322 172-450 Hemoglobin 10.8 Hematocrit 32.8 CMP 06/03/2020 [facility] - not interfaced (315)- - Albumin Serum/Plasma 2.4 Alt - SGPT 27 Calcium Ser/Plasma Mass/Vol 8.3 Carbon Dioxide Ser/Plasm 30 Chloride Serum/Plasma 92 Alkaline Phosphatase 446 Potassium 3.0 Protein Total 6.1 Sodium 131 Ast - Sgot 39 BUN - Urea Nitrogen 7 Glucose 79 Low 83-110 Creatinine For GFR 0.38 Laboratory test finding 06/03/2020 [facility] - not interf aced (315)- - Troponin <0.02 NT Probnp QN Ser/Plas 1874 CBC without Differential 04/27/2020 [facility] - not inter faced (315)- - White Blood Count 9.2 5.0-10.0 Red Blood Count 3.59 Low 4.00-5.40 Platelets 236 172-450 Hemoglobin 11.6 Hematocrit 34.4 BMP 04/27/2020 [facility] - not interfaced (315)- - Calcium Ser/Plasma Mass/Vol 8.4 Sodium 130 Carbon Dioxide Ser/Plasm 35 Chloride Serum/Plasma 90 Potassium 3.0 Glucose 102 83-110 Blood Urea Nitrogen 8 7-18 Creatinine 0.50 Low 0.6-1.0 G F R >60.0 Laboratory test finding 04/27/2020 [facility] - not interf aced (315)- - Magnesium Level 1.7 Low 1.8-2.4 CBC without Differential 04/25/2020 [facility] - not inter faced (315)- - White Blood Count 7.1 5.0-10.0 Red Blood Count 3.35 Low 4.00-5.40 Platelets 295 172-450 Hemoglobin 10.9 Hematocrit 31.9 CMP 04/25/2020 [facility] - not interfaced (315)- - Albumin Serum/Plasma 2.3 Alt - SGPT 49 Calcium Ser/Plasma Mass/Vol 8.1 Carbon Dioxide Ser/Plasm 28 Chloride Serum/Plasma 94 Alkaline Phosphatase 403 Potassium 3.6 Protein Total 5.4 Sodium 131 Ast - Sgot 45 BUN - Urea Nitrogen 6 Glucose 112 High 83-110 Creatinine For GFR 0.45 Laboratory test finding 04/25/2020 [facility] - not interf aced (315)- - NT Probnp QN Ser/Plas 1579 Procedures Date Code Description Status 06/10/2020 29650 Office/Outpatient Established Mo d MDM 30-39 Min Completed 06/10/2020 09283 ECG 12-Lead Completed 04/29/2020 38757 Smoking & Tobacco Ce ssation Counseling Visit Intermediate 3-10Min Completed 04/29/2020 63409 Office/Outpatient Established Mo d MDM 30-39 Min Completed 04/29/2020 87734 ECG 12-Lead Completed Medical Devices Description No Information Available Encounters Type Date Location Provider Dx Diagnosis Office Visit 06/10/2020 2:00p Main Office JORGE Alfonso I50 .32 Chronic diastolic (congestive) heart failure I48.91 Unspecified atrial fibrillat ion Office Visit 04/29/2020 8:15a Main Office JORGE Alfonso I50 .32 Chronic diastolic (congestive) heart failure I27.20 Pulmonary hypertension, unsp ecified I48.91 Unspecified atrial fibrillat ion I10 Essential (primary) hyperten nancy R94.31 Abnormal electrocardiogram [ ECG] [EKG] F10.99 Alcohol use, unsp with unspe cified alcohol-induced disorder F17.210 Nicotine dependence, cigaret michael, uncomplicated Z71.6 Tobacco abuse counseling Z87.891 Personal history of nicotine dependence Z71.3 Dietary counseling and surve illance Assessments Date Code Description Provider 06/10/2020 I50.32 Chronic diastolic (congestive) h eart failure JORGE Alfonso 06/10/2020 I48.91 Unspecified atrial fibrillation JORGE Alfonso 04/29/2020 I50.32 Chronic diastolic (congestive) h eart failure JORGE Alfonso 04/29/2020 I27.20 Pulmonary hypertension, unspecif ied JORGE Alfonso 04/29/2020 I48.91 Unspecified atrial fibrillation JORGE Alfonso 04/29/2020 I10 Essential (primary) hypertension JORGE Alfonso 04/29/2020 R94.31 Abnormal electrocardiogram [ECG] [EKG] JORGE Alfonso 04/29/2020 F10.99 Alcohol use, unspeci fied with unspecified alcohol-induced disorder JORGE Alfonso 04/29/2020 F17.210 Nicotine dependence, cigarettes, uncomplicated JORGE Alfonso 04/29/2020 Z71.6 Tobacco abuse counseling JORGE Walters ra 04/29/2020 Z87.891 Personal history of nicotine dep endence JORGE Alfonso 04/29/2020 Z71.3 Dietary counseling and surveilla nce JORGE Alfonso Plan of Treatment 06/10/2020 - JORGE Alfonso* I50.32 Chronic diastolic (congestive) heart failure* Recommendations:* Increase torsemide to 30mg daily (one 20mg tablet and one 10 mg tablet) for the next week and call the office with how you are feeling Please alert our office with a weight gain of more than 3 pounds, onset of shortness of breath, or lower extremity edema Labs ordered for 1 month * I48.91 Unspecified atrial fibrillation* Recommendations:* Labs as above, will consider decreased dose of Eliquis dependent on results Continue digoxin and metoprolol at the current dosages Patient agreeable to contact us with any episodes of tachycardia or heart racing * All * New Medication:* Torsemide 10 mg - 1 by mouth once daily as needed for lower extremity edema * Klor-Con 20 Meq - 1 by mouth every day * Follow up:* Follow up in 3 months * Recommendations:* Potassium tablet prescribed in place of granules as she cannot swallow the tablets and had to crush - advised patient against this Functional Status Functional Condition Comment Date Status Requires assistance with bathing Active Independent with dressing Active Independent with feeding Active Independent with grooming Active Independent with standing Active Independent with toileting Activ e Independent with ambulating Acti ve Mental Status Description No Information Available Referrals Description No Information Available
--- OUTSIDE RECORDS SUMMARY | 2020-12-04 16:26 | CCD | Continuity of Care Document ---
Author Author Danielle LOCKETT Organization Unknown Address [address] [place] [address] Phone [phone] Care Team Providers Care Dentistry Professor Name Role Phone Wilner Arriola DO AUTM [phone] Magy Alvarado AUTM [phone] Problems Active Problems Provider Date Atrial fibrillation [...] a current smoker, smo kes every day currently 4-5 cigarettes daily; up to 1.5 ppd since age 17 Smoking Status Reviewed: 09/11/20 Patient is a current smoker, smokes every day currently 4-5 cigarettes daily; up to 1.5 ppd since age 17 Exercise Type/Frequency Walks sporadically Exercise Type/Frequency Does [place]work [place] a [place] Exercise Limitations Other legs - swel ling [...] every day 90tabs JORGE Alfonso 1 Ipratropium [place]/Albuterol Sulfate 0.5-2.5(3)mg/3ML Solution 1 nebulizer treatment 4 [...] GFR (Calculated) >60.0 CBC without Differential 06/03/2020 [facility] - not inter faced (315)- - White Blood Count 8.8 5.0-10.0 Red Blood Count 3.36 Low 4.00-5.40 Platelets 322 172-450 Hemoglobin 10.8 Hematocrit 32.8 CMP 06/03/2020 [facility] - not interfaced (315)- - Albumin Serum/Plasma 2.4 Alt - SGPT 27 Calcium Ser/Plasma Mass/Vol 8.3 Carbon Dioxide Ser/Plasm 30 Chloride Serum/Plasma 92 Alkaline Phosphatase 446 Potassium 3.0 Protein Total 6.1 Sodium 131 Ast - Sgot 39 BUN - Urea Nitrogen 7 Glucose 79 Low 83-110 Creatinine For GFR 0.38 Laboratory test finding 06/03/2020 [facility] - not interf aced (315)- - Troponin <0.02 NT Probnp QN Ser/Plas 1874 CBC without Differential 04/27/2020 [facility] - not inter faced (315)- - White Blood Count 9.2 5.0-10.0 Red Blood Count 3.59 Low 4.00-5.40 Platelets 236 172-450 Hemoglobin 11.6 Hematocrit 34.4 BMP 04/27/2020 [facility] - not interfaced (315)- - Calcium Ser/Plasma Mass/Vol 8.4 Sodium 130 Carbon Dioxide Ser/Plasm 35 Chloride Serum/Plasma 90 Potassium 3.0 Glucose 102 83-110 Blood Urea Nitrogen 8 7-18 Creatinine 0.50 Low 0.6-1.0 G F R >60.0 Laboratory test finding 04/27/2020 [facility] - not interf aced (315)- - Magnesium Level 1.7 Low 1.8-2.4 CBC without Differential 04/25/2020 [facility] - not inter faced (315)- - White Blood Count 7.1 5.0-10.0 Red Blood Count 3.35 Low 4.00-5.40 Platelets 295 172-450 Hemoglobin 10.9 Hematocrit 31.9 CMP 04/25/2020 [facility] - not interfaced (315)- - Albumin Serum/Plasma 2.3 Alt - SGPT 49 Calcium Ser/Plasma Mass/Vol 8.1 Carbon Dioxide Ser/Plasm 28 Chloride Serum/Plasma 94 Alkaline Phosphatase 403 Potassium 3.6 Protein Total 5.4 Sodium 131 Ast - Sgot 45 BUN - Urea Nitrogen 6 Glucose 112 High 83-110 Creatinine For GFR 0.45 Laboratory test finding 04/25/2020 [facility] - not interf aced (315)- - NT Probnp QN Ser/Plas 1579 Procedures Date Code Description Status 09/11/2020 89959 Smoking & Tobacco Ce ssation Counseling Visit Intermediate 3-10Min Completed 09/11/2020 28436 Office/Outpatient Established Mo d MDM 30-39 Min Completed 09/11/2020 24155 ECG 12-Lead Completed 06/10/2020 93392 Office/Outpatient Established Mo d MDM 30-39 Min Completed 06/10/2020 85569 ECG 12-Lead Completed 04/29/2020 68142 Smoking & Tobacco Ce ssation Counseling Visit Intermediate 3-10Min Completed 04/29/2020 91971 Office/Outpatient Established Mo d MDM 30-39 Min Completed 04/29/2020 05247 ECG 12-Lead Completed Medical Devices Description No Information Available Encounters Type Date Location Provider Dx Diagnosis Office Visit 09/11/2020 11:15a Main Office JORGE Alfonso I50 .32 Chronic diastolic (congestive) heart failure I48.91 Unspecified atrial fibrillat ion I10 Essential (primary) hyperten nancy I27.20 Pulmonary hypertension, unsp ecified F17.210 Nicotine dependence, cigaret michael, uncomplicated F10.99 Alcohol use, unsp with unspe cified alcohol-induced disorder R94.31 Abnormal electrocardiogram [ ECG] [EKG] Z71.3 Dietary counseling and surve illance Office Visit 06/10/2020 2:00p Main Office JORGE [...] surve illance Assessments Date Code Description Provider 09/11/2020 I50.32 Chronic diastolic (congestive) h eart failure JORGE Alfonso 09/11/2020 I48.91 Unspecified atrial fibrillation JORGE Alfonso 09/11/2020 I10 Essential (primary) hypertension JORGE Alfonso 09/11/2020 I27.20 Pulmonary hypertension, unspecif ied JORGE Alfonso 09/11/2020 F17.210 Nicotine dependence, cigarettes, uncomplicated JORGE Alfonso 09/11/2020 F10.99 Alcohol use, unspeci fied with unspecified alcohol-induced disorder JORGE Alfonso 09/11/2020 R94.31 Abnormal electrocardiogram [ECG] [EKG] JORGE Alfonso 09/11/2020 Z71.3 Dietary counseling and surveilla nce JORGE Alfonso 06/10/2020 I50.32 Chronic diastolic (congestive) h eart [...] surveilla nce JORGE Alfonso Plan of Treatment Future Appointment(s):* 01/12/2021 8:45 am - JORGE Alfonso at Main Office 09/11/2020 - JORGE Alfonso* I50.32 Chronic diastolic (congestive) heart failure* New Labs:* BMP, Scheduled: 10/13/20 * NT Probnp QN Ser/Plas, Scheduled: 10/13/20 * Recommendations:* No medication changes made today Please obtain labs in 1 month Please alert our office with a weight gain of more than 3 pounds, onset of shortness of breath, or lower extremity edema * I48.91 Unspecified atrial fibrillation* Recommendations:* Continue digoxin and metoprolol at the current dosages Patient agreeable to contact us with any episodes of tachycardia or heart racing * I10 Essential (primary) hypertension* Recommendations:* Continue amlodipine, chlorthalidone, and metoprolol at the current dosages Advised patient to please monitor blood pressures at home and to alert our office for readings > 140/>90 or <110/<60 * I27.20 Pulmonary hypertension, unspecified * F17.210 Nicotine dependence, cigarettes, uncomplicated* Recommendations:* Advised patient on the negative consequences of continued tobacco abuse including but not limited to chronic bronchitis, emphysema, lung cancer, CAD, NV, CVA * F10.99 Alcohol use, unspecified with unspecified alcohol-induced disorder* Recommendations:* Strongly encouraged patient to avoid alcohol The association between excess alcohol intake and systemic hypertension, cancer, and rhythm disturbances (atrial fibrillation) were discussed * R94.31 Abnormal electrocardiogram [ECG] [EKG]* Recommendations:* No further evaluation is needed at this time. * Z71.3 Dietary counseling and surveillance* Recommendations:* Recommended for patient to follow a more whole food diet. Advised patient to avoid overly processed foods and packaged foods. Advised patient to avoid sodas, juices and other liquid calories. Recommended at least 30 minutes of exercise 3 days a week. * All * Follow up:* Follow-up in 4 months Functional Status Functional Condition Comment Date Status Requires assistance with bathing Active Independent with dressing Active Independent with feeding Active Independent with grooming Active Independent with standing Active Independent with toileting Activ e Independent with ambulating Acti ve Mental Status Description No Information Available Referrals Description No Information Available
--- OUTSIDE RECORDS SUMMARY | 2020-12-04 16:26 | CCD ---
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 Name Role Phone Magy Alvarado Unavailable PROBLEMS Type Condition ICD9-CM Code [id number] Code Onset Dates Condition S tatus W/U Status Risk SNOMED Code Notes Problem Osteopenia M85.80 Active confirmed 918630114 Problem Essential hypertension I10 Active confirmed 23087324 Problem Chronic obstructive pulmonary disease, unspecified COPD ty pe J44.9 Active confirmed 64999260 Problem Alcohol abuse F10.10 Active confirmed 730420 05 Problem Acquired hypothyroidism E03.9 Active confirmed 276143373 Problem Basal cell carcinoma C44.91 Active confirmed 791772627 Problem Tobacco dependence F17.200 Active confirmed 97011654 Problem Dysthymia F34.1 Active confirmed 46777190 Problem Uncomplicated alcohol dependence F10.20 Active conf irmed 68388718 Problem Vitamin D deficiency E55.9 Active confirmed 05223590 Problem Hyperlipidemia, unspecified hyperlipidemia type E7 8.5 Active confirmed 48717835 Problem Dysphagia, unspecified type R13.10 Active confirmed 50137031 Problem 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 A ctive confirmed 183849511 Problem Mixed hyperlipidemia E78.2 Active confirmed 018327479 Problem Chronic obstruct airways disease J44.9 Active conf irmed 70296507 Problem Gastroesophageal reflux disease without esophagitis K21.9 Active confirmed 401980236 Problem Stress incontinence, Female 625.6 Active confirmed 23614116 Problem COPD exacerbation J44.1 Active confirmed 19 0782291 Problem Adjustment disorder with other symptom F43.29 A ctive confirmed 38671196 Problem History of skin cancer Z85.828 Active confirmed 656126605 Problem Chronic atrial fibrillation I48.20 Active confirmed 966341972 ALLERGIES Allergen (clinical drug ingredient) Drug/Non Drug Allergy do cumented on EMR Reaction Allergy Type Onset Date Status meperidine Meperidine Unknown Drug Allergy Active codeine Codeine Unknown Drug Allergy Active lisinopril Lisinopril([facility] Code:[address]-41) hyperkalemia Drug Aller gy Active cephalexin Cephalexin Unknown Drug Allergy Active Keflex Nausea Drug Allergy Active Compazine ridigity Drug Allergy Active ENCOUNTERS from 1950 to 2020-11-20 Encounter Location Date Provider Diagnosis [facility] [address] [facility] [phone] [place] [address] Nov, 2020 Magy Alvarado IMMUNIZATIONS Vaccine Route Administration Date [...] Advice Language: Question Answer Notes Languages spoken: Chinese [employer]an: Question Answer Notes [employer] Sexual Hx: Question Answer Notes Had sex [...] Notes Start Da te End Date Status Acetaminophen 500 MG 2 caps Orally at hs 23 Oct, 2018 Active Metoprolol Tartrate 25 MG 1 tablet with food Orally Twice a day hosp d/c 04/28/20= 50 mg qd Active PreserVision AREDS - 1 tab Orally Daily for 90 day(s) 2020 Active Thera M Plus - 1 tab Orally Daily Apr, Active levoFLOXacin 250 MG 2 tablets Orally Once a day for 10 day(s ) patient came home on, has 2 days left Active Potassium Chloride ER 20 MEQ 1 tablet with food Orally Once a day for 30 day(s) discharge on [facility] 06/05/20 May, Active Torsemide 20 MG 1 tab Orally Daily for 90 day(s) togethe r with 10 for total of 30 daily Apr, Active Atorvastatin Calcium 20 MG 1 tablet Orally Once a day for 90 day(s) on discharge 40 mg dosage Aug, Active Albuterol Sulfate HFA 108 (90 Base) MCG/ACT 1 puff as needed Inhalation every 4 hrs for 30 Days June, Active Docusate Sodium 50 MG/5ML 10 ml as needed Orally twice day x 14 days Active Eliquis 5 MG 1 tab Orally twice daily for 90 days Active amLODIPine Besylate 10 MG 1 tablet Orally Once a day for 90 day(s) Medication increased om 09/02/20 to 10 mg once daily Aug, Active Ipratropium-Albuterol 0.5-2.5 (3) MG/3ML 3 ml as needed Inha lation twice daily Apr, Active buPROPion HCl ER (Smoking Det) 150 MG 1 tablet in the morning Orally Once a day for 30 day(s) Active Levothyroxine Sodium 50 MCG 1 tablet in the morning on an empty stomach Orally Once a day for 90 days hosp d/c 04/28/20= 50 mcg qd Active Omeprazole 20 MG 1 capsule 30 minutes before morning meal Orally Once a day for 90 day(s) Mar, Active Digoxin 125 MCG 1 tablet Orally Once a day for 90 day(s) on discharge from [facility] on 06/05/20 May, Active Advair HFA 230-21 MCG/ACT 2 puffs Inhalation Twice a day Active PROCEDURES No Information RESULTS No Results REASON FOR VISIT TCM/[facility] D/C 11/12; CHF Exacerbation MEDICAL (GENERAL) HISTORY Type Description Date Medical History hypertension Medical History Tobacco dependence Medical History hyperlipidemia Medical History hiatal hernia/ h/o gastritis Medical History osteopenia Medical History COPD Medical History heavy ETOH use per dtr 01/23 Medical History CAP 01/23 (admitted) Medical History hypothyroidism Medical History SCC of the face x 2 Surgical History T & A 1967 Surgical History UN & BSO Surgical History colonoscopy 07/22/2010 Surgical [...] Treatment Notes Treatm ent Clinical Notes Nov, Other Discussion with patient PLAN OF TREATMENT Next Appt Details Provider Name:Magy Christiano, 02:00:00 PM, [address] [facility], , [place], [address], Insurance Providers Payer Name Payer Address Payer Phone Insured Name Patient Relati onship to Insured Coverage Start Date Coverage End Date [facility] [address] [address] [facility] [id number] TRE BO[employer]ER
--- OUTSIDE RECORDS SUMMARY | 2020-12-04 16:26 | CCD ---
Author Author [facility] Organization [facility] Address Unknown Phone Unavailable Care Team Providers Care Lead Athlete Name Role Phone Magy Alvarado Unavailable PROBLEMS Type Condition ICD9-CM Code [id number] Code Onset Dates Condition S tatus W/U Status Risk SNOMED Code Notes Problem Essential hypertension I10 Active confirmed 39508692 Problem Stress incontinence, Female 625.6 Active confirmed 60003979 Problem Alcohol abuse F10.10 Active confirmed 409941 05 Problem Osteopenia M85.80 Active confirmed 229854259 Problem Basal cell carcinoma C44.91 Active confirmed 077777001 Problem Chronic obstructive pulmonary disease, unspecified COPD ty pe J44.9 Active confirmed 41149431 Problem Dysthymia F34.1 Active confirmed 40677230 Problem Acquired hypothyroidism E03.9 Active confirmed 680780782 Problem Tobacco dependence F17.200 Active confirmed 34544225 Problem Vitamin D deficiency E55.9 Active confirmed 95758002 Problem Uncomplicated alcohol dependence F10.20 Active conf irmed 60900378 Problem History of skin cancer Z85.828 Active confirmed 153423883 Problem 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 A ctive confirmed 845447616 Problem Dysphagia, unspecified type R13.10 Active confirmed 67843956 Problem Gastroesophageal reflux disease without esophagitis K21.9 Active confirmed 618829678 Problem Mixed hyperlipidemia E78.2 Active confirmed 526418543 Problem Hyperlipidemia, unspecified hyperlipidemia type E7 8.5 Active confirmed 23365075 Problem COPD exacerbation J44.1 Active confirmed 19 6714247 Problem Adjustment disorder with other symptom F43.29 A ctive confirmed 99701942 Problem Chronic atrial fibrillation I48.20 Active confirmed 736349248 ALLERGIES Allergen (clinical drug ingredient) Drug/Non Drug Allergy do cumented on EMR Reaction Allergy Type Onset Date Status Keflex Nausea Drug Allergy Active Compazine ridigity Drug Allergy Active lisinopril Lisinopril([facility] NAMED [facility] Code:[address]-24) hyperkalemia Drug Aller gy Active ENCOUNTERS from 1950 to 2020-09-10 Encounter Location Date Provider Diagnosis [facility] [address] [phone] [place] [address] Sep, Magy Christiano Chronic obstructive pulmonar y disease, unspecified COPD type J44.9 IMMUNIZATIONS Vaccine [...] Education: Professional Schools/Masters/PhD Audit Question Answer Notes Interpretation: Simple Advice Total Score: 8 Language: Question Answer Notes Languages spoken: Azerbaijani Sabianist: Question Answer Notes Sabianist 13 Muslim Sexual Hx: Question Answer Notes Had sex in the last 12 months (vaginal, oral, or anal)? No LMP: men Have you ever had an STD? No Drug and Alcohol Question Answer Notes Interpretation: No problems reported Total Score: 0 BMI Care Goal Follow-Up Question Answer Notes [...] 07/2020 REASON FOR REFERRAL from 1950 to 2020-09-10 Reason 70 y old F with recent hospi talization for COPD for further evaluation and management. Diagnosis 1 Chronic obstructive pulmonar y disease, unspecified COPD type (J44.9) Referral Organization [facility] Marissa Referring Provider First Name Magy Referring Provider Last Name Christiano Referring Provider Specialty Family Medicine Referred Provider [facility] Referred Provider Specialty Pulmonary Diseases Referral Priority Routine General Notes Aida Joseph 09/10/2020 7:04 :29 AM > Sent VITAL SIGNS No information MEDICATIONS Medication SIG (Take, Route, Frequency, Duration) Notes Start Da te End Date Status Levothyroxine Sodium 50 MCG 1 tablet in the morning on an empty stomach Orally Once a day for 90 days hosp d/c 04/28/20= 50 mcg qd Active Torsemide 10 MG 1 tablet Orally Once a day for 30 day(s) Active Metoprolol Tartrate 25 MG 1 tablet with food Orally Twice a day for 90 hosp d/c 04/28/20= 50 mg qd Active predniSONE 10 MG 1 tablet Orally Take 4 tabs daily x 3 days, then 3 tabs daily for 3 days, then 2 tabs daily for 3 days , then 1 tabs daily for 3 days Aug, Active Acetaminophen 325 MG 650 mg Orally every 4 hrs prn pain/fever Oct, Active Thera M Plus - 1 tab Orally Daily Apr, Unknown Omeprazole 20 MG 1 capsule 30 minutes before morning meal Orally Once a day for 90 day(s) Mar, Active Fluconazole 200 MG 1 tablet Orally 1 pill daily for 30 days Feb, Unknown Albuterol Sulfate HFA 108 (90 Base) MCG/ACT 1 puff as needed Inhalation every 4 hrs for 30 Days June, Active Nicotine Step 1 21 MG/24HR 1 patch to skin Transdermal Once a day for 30 day(s) as needed daily x 7 days on d/c from [facility] 09/02Aug, Active PreserVision AREDS - 1 tab Orally Daily for 90 day(s) 22 2020 Active Digoxin 125 MCG 1 tablet Orally Once a day for 90 day(s) on discharge from [facility] on 06/05/20 May, Active amLODIPine Besylate 10 MG 1 tablet Orally Once a day Medicat ion increased om 09/02/20 to 10 mg once daily Aug, Active Torsemide 20 MG 1 tab Orally Daily for 90 day(s) togethe r with 10 for total of 30 daily Apr, Active Wellbutrin XL 150 MG 1 tablet in the morning Orally Once a day f or 90 day(s) Apr, Unknown buPROPion HCl ER (Smoking Det) 150 MG 1 tablet in the morning Orally Once a day for 30 day(s) Active Eliquis 5 MG 1 tab Orally twice daily Active Atorvastatin Calcium 20 MG 1 tablet Orally Once a day for 30 day(s) on discharge 40 mg dosage Aug, Active Advair HFA 230-21 MCG/ACT 2 puffs Inhalation Twice a day Active Potassium Chloride ER 20 MEQ 1 tablet with food Orally Once a day for 30 day(s) discharge on [facility] 06/05/20 May, Active Ipratropium-Albuterol 0.5-2.5 (3) MG/3ML 3 ml as needed Inha lation twice daily Apr, Active PROCEDURES No Information RESULTS No Results REASON FOR VISIT Pulmonary Referral MEDICAL (GENERAL) HISTORY Type Description Date Medical [...] COPD exascerbation 10/23/18-10/31/18 Hospitalization History CHF 04/25/20-04/27/20 Goals Section No Information Health Concerns No Information MEDICAL EQUIPMENT No Information MENTAL STATUS No Information FUNCTIONAL STATUS No Information ASSESSMENTS Encounter Date Diagnosis Assessment Notes Treatment Notes Treatm ent Clinical Notes Sep, Chronic obstructive pulmonar y disease, unspecified COPD type (ICD- 10 - J44.9) PLAN OF TREATMENT Referrals Referral Date Details 70 y old F with recent hospi talization for COPD for further evaluation and management., [facility] Next Appt Details Provider Name:Magy Alvarado, 2020-08- 05 10:00:00 AM, [address], , [place], [address], Provider Name:Magy Garyin, 10:30:00 AM, [address], , [place], [address], Insurance Providers Payer Name Payer Address Payer Phone Insured Name Patient Relati onship to Insured Coverage Start Date Coverage End Date [facility] [address] [address] [facility] [address] [phone] TRE BOYER
--- OUTSIDE RECORDS SUMMARY | 2020-12-04 16:26 | CCD ---
Author Author [facility] Organization [facility] Address Unknown Phone Unavailable Care Team Providers Care Employee Relations Specialist Name Role Phone Magy Alvarado Unavailable PROBLEMS Type Condition ICD9-CM Code [id number] Code Onset Dates Condition S tatus W/U Status Risk SNOMED Code Notes Problem Osteopenia M85.80 Active confirmed 611030894 Problem Essential hypertension I10 Active confirmed 29284691 Problem Chronic obstructive pulmonary disease, unspecified COPD ty pe J44.9 Active confirmed 44511349 Problem Alcohol abuse F10.10 Active confirmed 805807 05 Problem Acquired hypothyroidism E03.9 Active confirmed 330970447 Problem Basal cell carcinoma C44.91 Active confirmed 898321020 Problem Tobacco dependence F17.200 Active confirmed 31632723 Problem Dysthymia F34.1 Active confirmed 16118727 Problem Uncomplicated alcohol dependence F10.20 Active conf irmed 93686475 Problem Vitamin D deficiency E55.9 Active confirmed 22174533 Problem Hyperlipidemia, unspecified hyperlipidemia type E7 8.5 Active confirmed 99974043 Problem Dysphagia, unspecified type R13.10 Active confirmed 79871013 Problem 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 A ctive confirmed 763566734 Problem Mixed hyperlipidemia E78.2 Active confirmed 389886696 Problem Chronic obstruct airways disease J44.9 Active conf irmed 55391982 Problem Gastroesophageal reflux disease without esophagitis K21.9 Active confirmed 383095504 Problem Stress incontinence, Female 625.6 Active confirmed 47883806 Problem COPD exacerbation J44.1 Active confirmed 19 3186815 Problem Adjustment disorder with other symptom F43.29 A ctive confirmed 75615655 Problem History of skin cancer Z85.828 Active confirmed 708503524 Problem Chronic atrial fibrillation I48.20 Active confirmed 897703850 ALLERGIES Allergen (clinical drug ingredient) Drug/Non Drug Allergy do cumented on EMR Reaction Allergy Type Onset Date Status meperidine Meperidine Unknown Drug Allergy Active codeine Codeine Unknown Drug Allergy Active lisinopril Lisinopril([facility] Code:[address]-09) hyperkalemia Drug Aller gy Active cephalexin Cephalexin Unknown Drug Allergy Active Keflex Nausea Drug Allergy Active Compazine ridigity Drug Allergy Active ENCOUNTERS from 1950 to 2020-10-02 Encounter Location Date Provider Diagnosis [facility] [address] [phone] [place] [address] Sep, Magy Alvarado IMMUNIZATIONS Vaccine Route Administration Date [...] Advice Language: Question Answer Notes Languages spoken: Greenlandic Church: Question Answer Notes Church 13 [employer] Sexual Hx: Question Answer Notes Had sex [...] a day for 30 day(s) discharge on [facility] 06/05/20 May, Active Atorvastatin Calcium 20 MG 1 tablet Orally Once a day for 30 day(s) on discharge 40 mg dosage Aug, Not-Taking Nicotine Step 1 21 MG/24HR 1 patch to skin Transdermal Once a day for 30 day(s) as needed daily x 7 days on d/c from [facility] 09/02Aug, Active amLODIPine Besylate 10 MG 1 tablet Orally Once a day Medicat ion increased om 09/02/20 to 10 mg once daily Aug, Active Acetaminophen 325 MG 650 mg Orally every 4 hrs prn pain/fever Oct, Active Digoxin 125 MCG 1 tablet Orally Once a day for 90 day(s) on discharge from [facility] on 06/05/20 May, Active Metoprolol Tartrate [...] needed Inha lation twice daily Apr, Active PreserVision AREDS - 1 tab Orally [...] Information RESULTS No Results REASON FOR VISIT update/refill MEDICAL (GENERAL) HISTORY Type Description Date Medical [...] Medication Name Sig Start Date Stop Date Eliquis 5 MG 1 tab Orally twice daily for 90 days Insurance Providers Payer Name Payer Address Payer Phone Insured Name Patient Relati onship to Insured Coverage Start Date Coverage End Date [facility] [address] [address] [facility] [id number] TRE BOYER
--- OUTSIDE RECORDS SUMMARY | 2020-12-04 16:27 | CCD ---
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 Name Role Phone Agnes PIMENTEL Unavailable Unavailable Dayanara STARK MD Unavailable Unavailable Dayanara STARK MD Unavailable Unavailable Dayanara STARK MD Unavailable Unavailable Dayanara STARK MD Unavailable Unavailable Dayanara STARK MD Unavailable Unavailable Dayanara STARK MD Unavailable Unavailable Dayanara STARK MD Unavailable Unavailable Dayanara STARK MD Unavailable Unavailable Dayanara STARK MD Unavailable Unavailable Dayanara STARK MD Unavailable Unavailable Dayanara STARK MD Unavailable Unavailable Dayanara STARK MD Unavailable Unavailable Dayanara STARK MD Unavailable Unavailable Dayanara STARK MD Unavailable Unavailable Dayanara STARK MD Unavailable Unavailable Dayanara STARK MD Unavailable Unavailable Dayanara STARK MD Unavailable Unavailable Dayanara STARK MD Unavailable Unavailable Dayanara STARK MD Unavailable Unavailable Dayanara STARK MD Unavailable Unavailable Dayanara STARK MD Unavailable Unavailable Dayanara STARK MD Unavailable Unavailable Dayanara STARK MD Unavailable Unavailable Dayanara STARK MD Unavailable Unavailable Dayanara STARK MD Unavailable Unavailable Dayanara STARK MD Unavailable Unavailable Dayanara STARK MD Unavailable Unavailable Dayanara STARK MD Unavailable Unavailable Dayanara STARK MD Unavailable Unavailable Dayanara STARK MD Unavailable Unavailable Dayanara STARK MD Unavailable Unavailable Dayanara STARK MD Unavailable Unavailable Dayanara STARK MD Unavailable Unavailable Dayanara STARK MD Unavailable Unavailable Dayanara STARK MD Unavailable Unavailable Dayanara STARK MD Unavailable Unavailable Dayanara STARK MD Unavailable Unavailable Dayanara STARK MD Unavailable Unavailable Dayanara STARK MD Unavailable Unavailable Dayanara STARK MD Unavailable Unavailable Dayanara STARK MD Unavailable Unavailable Dayanara STARK MD Unavailable Unavailable Dayanara STARK MD Unavailable Unavailable Dayanara STARK MD Unavailable Unavailable Dayanara STARK MD Unavailable Unavailable Dayanara STARK MD Unavailable Unavailable Dayanara STARK MD Unavailable Unavailable Dayanara STARK MD Unavailable Unavailable Dayanara STARK MD Unavailable Unavailable Dayanara STARK MD Unavailable Unavailable Dayanara STARK MD Unavailable Unavailable Dayanara STARK MD Unavailable Unavailable Dayanara STARK MD Unavailable Unavailable Dayanara STARK MD Unavailable Unavailable Dayanara STARK MD Unavailable Unavailable Dayanara STARK MD Unavailable Unavailable Dayanara STARK MD Unavailable Unavailable Dayanara STARK MD Unavailable Unavailable Dayanara STARK MD Unavailable Unavailable Dayanara STARK MD Unavailable Unavailable Dayanara STARK MD Unavailable Unavailable Dayanara STARK MD Unavailable Unavailable Dayanara STARK MD Unavailable Unavailable Dayanara STARK MD Unavailable Unavailable Dayanara STARK MD Unavailable Unavailable Dayanara STARK MD Unavailable Unavailable Dayanara STARK MD Unavailable Unavailable Dayanara STARK MD Unavailable Unavailable Dayanara STARK MD Unavailable Unavailable Dayanara STARK MD Unavailable Unavailable Dayanara STARK MD Unavailable Unavailable Dayanara STARK MD Unavailable Unavailable Dayanara STARK MD Unavailable Unavailable Dayanara STARK MD Unavailable Unavailable Dayanara STARK MD Unavailable Unavailable Dayanara STARK MD Unavailable Unavailable Dayanara STARK MD Unavailable Unavailable Dayanara STARK MD Unavailable Unavailable Dayanara STARK MD Unavailable Unavailable Margaret Mendez MD Unavailable Unavailable Margaret Mendez MD Unavailable Unavailable Mendez, Margaret Sullivan MD Unavailable Unavailable Mendez, L Nate SUMMERS Unavailable Unavailable Mendez, L Nate SUMMERS Unavailable Unavailable Mendez, L Nate SUMMERS Unavailable Unavailable Mendez, L Nate SUMMERS Unavailable Unavailable Mendez, L Nate SUMMERS Unavailable Unavailable Mendez, L Nate SUMMERS Unavailable Unavailable Mendez, Margaret Sullivan MD Unavailable Unavailable Mendez, L Nate SUMMERS Unavailable Unavailable Mendez, Margaret Sullivan MD Unavailable Unavailable Mendez, L Nate SUMMERS Unavailable Unavailable Mendez, L Nate SUMMERS Unavailable Unavailable Mendez, L Nate SUMMERS Unavailable Unavailable Mendez, L Nate SUMMERS Unavailable Unavailable Mendez, L Nate SUMMERS Unavailable Unavailable Mendez, L Nate SUMMERS Unavailable Unavailable Mendez, L Nate SUMMERS Unavailable Unavailable Mendez, L Nate SUMMERS Unavailable Unavailable Mendez, L Nate SUMMERS Unavailable Unavailable Mendez, L Nate SUMMERS Unavailable Unavailable Mendez, L Nate SUMMERS Unavailable Unavailable Mendez, L Nate SUMMERS Unavailable Unavailable Mendez, L Nate SUMMERS Unavailable Unavailable Mendez, L Nate SUMMERS Unavailable Unavailable Mendez, Margaret Sullivan MD Unavailable Unavailable Mendez, Margaret Sullivan MD Unavailable Unavailable Mendez, Margaret Sullivan MD Unavailable Unavailable Mendez, Margaret Sullivan MD Unavailable Unavailable Mendez, L Nate SUMMERS Unavailable Unavailable Mendez, L Nate SUMMERS Unavailable Unavailable Mendez, Margaret Sullivan MD Unavailable Unavailable Mendez, L Nate SUMMERS Unavailable Unavailable Mendez, Margaret Sullivan MD Unavailable Unavailable Mendez, L Nate SUMMERS Unavailable Unavailable Mendez, L Nate SUMMERS Unavailable Unavailable Mendez, Margaret Sullivan MD Unavailable Unavailable Mendez, L Nate SUMMERS Unavailable Unavailable Mendez, L Nate SUMMERS Unavailable Unavailable Mendez, Margaret Sullivan MD Unavailable Unavailable Mendez, L Nate SUMMERS Unavailable Unavailable Mendez, Margaret Sullivan MD Unavailable Unavailable Mendez, L Nate SUMMERS Unavailable Unavailable Mendez, Margaret Sullivan MD Unavailable Unavailable Mendez, Margaret Sullivan MD Unavailable Unavailable Mendez, L Nate SUMMERS Unavailable Unavailable Mendez, L Nate SUMMERS Unavailable Unavailable Mendez, Margaret Sullivan MD Unavailable Unavailable Mendez, L Nate SUMMERS Unavailable Unavailable CATHRYN, L CADEN PA Unavailable Unavailable CATHRYN, L CADEN PA Unavailable Unavailable CATHRYN, L CADEN PA Unavailable Unavailable CATHRYN, L CADEN PA Unavailable Unavailable CATHRYN, L CADEN PA Unavailable Unavailable CATHRYN, L CADEN PA Unavailable Unavailable CATHRYN, L CADEN PA Unavailable Unavailable CATHRYN, L CADEN PA Unavailable Unavailable CATHRYN, L CADEN PA Unavailable Unavailable CATHRYN, L CADEN PA Unavailable Unavailable CATHRYN, L CADEN PA Unavailable Unavailable CATHRYN, L CADEN PA Unavailable Unavailable CATHRYN, L CADEN PA Unavailable Unavailable CATHRYN, L CADEN PA Unavailable Unavailable CATHRYN, L CADEN PA Unavailable Unavailable CATHRYN, L CADEN PA Unavailable Unavailable SETTERDayanara MD Unavailable Unavailable SETTER, Dayanara CHAUDHARI MD Unavailable Unavailable SETTER, Dayanara CHAUDHARI MD Unavailable Unavailable SETTER, Dayanara CHAUDHARI MD Unavailable Unavailable SETTER, Dayanara CHAUDHARI MD Unavailable Unavailable SETTER, Dayanara CHAUDHARI MD Unavailable Unavailable SETTER, Dayanara CHAUDHARI MD Unavailable Unavailable SETTER, Dayanara CHAUDHARI MD Unavailable Unavailable SETTER, Dayanara CHAUDHARI MD Unavailable Unavailable SETTER, Dayanara CHAUDHARI MD Unavailable Unavailable SETTER, Dayanara CHAUDHARI MD Unavailable Unavailable SETTER, Dayanara CHAUDHARI MD Unavailable Unavailable SETTER, Dayanara CHAUDHARI MD Unavailable Unavailable SETTER, Dayanara CHAUDHARI MD Unavailable Unavailable SETTER, Dayanara CHAUDHARI MD Unavailable Unavailable SETTER, Dayanara CHAUDHARI MD Unavailable Unavailable SETTER, Dayanara CHAUDHARI MD Unavailable Unavailable SETTER, Dayanara CHAUDHARI MD Unavailable Unavailable SETTER, Dayanara CHAUDHARI MD Unavailable Unavailable SETTER, Dayanara CHAUDHARI MD Unavailable Unavailable SETTERDayanara MD Unavailable Unavailable SETTERDayanara MD Unavailable Unavailable SETTERDayanara MD Unavailable Unavailable SETTER, Dayanara CHAUDHARI MD Unavailable Unavailable SETTER, Dayanara CHAUDHARI MD Unavailable Unavailable SETTERDayanara MD Unavailable Unavailable SETTERDayanara MD Unavailable Unavailable SETTERDayanara MD Unavailable Unavailable SETTER, Dayanara CHAUDHARI MD Unavailable Unavailable SETTER, Dayanara CHAUDHARI MD Unavailable Unavailable SETTERDayanara MD Unavailable Unavailable SETTERDayanara MD Unavailable Unavailable SETTERDayanara MD Unavailable Unavailable SETTERDayanara MD Unavailable Unavailable SETTERDayanara MD Unavailable Unavailable SETTERDayanara MD Unavailable Unavailable SETTERDayanara MD Unavailable Unavailable SETTERDayanara MD Unavailable Unavailable SETTERDayanara MD Unavailable Unavailable SETTERDayanara MD Unavailable Unavailable SETTERDayanara MD Unavailable Unavailable SETTERDayanara MD Unavailable Unavailable SETTERDayanara MD Unavailable Unavailable SETTERDayanara MD Unavailable Unavailable SETTERDayanara MD Unavailable Unavailable SETTERDayanara MD Unavailable Unavailable SETTERDayanara MD Unavailable Unavailable SETTERDayanara MD Unavailable Unavailable SETTERDayanara MD Unavailable Unavailable SETTERDayanara MD Unavailable Unavailable SETTERDayanara MD Unavailable Unavailable SETTERDayanara MD Unavailable Unavailable SETTERDayanara MD Unavailable Unavailable SETTERDayanara MD Unavailable Unavailable SETTERDayanara MD Unavailable Unavailable SETTERDayanara MD Unavailable Unavailable SETTER, Dayanara CHAUDHARI MD Unavailable Unavailable SETTER, Dayanara CHAUDHARI MD Unavailable Unavailable SETTER, Dayanara CHAUDHARI MD Unavailable Unavailable SETTER, Dayanara CHAUDHARI MD Unavailable Unavailable SETTER, Dayanara CHAUDHARI MD Unavailable Unavailable SETTER, Dayanara CHAUDHARI MD Unavailable Unavailable SETTER, Dayanara CHAUDHARI MD Unavailable Unavailable SETTER, Dayanara CHAUDHARI MD Unavailable Unavailable SETTER, Dayanara CHAUDHARI MD Unavailable Unavailable SETTER, Dayanara CHAUDHARI MD Unavailable Unavailable SETTER, Dayanara CHAUDHARI MD Unavailable Unavailable SETTER, Dayanara CHAUDHARI MD Unavailable Unavailable SETTER, Dayanara CHAUDHARI MD Unavailable Unavailable SETTER, Dayanara CHAUDHARI MD Unavailable Unavailable SETTER, Dayanara CHAUDHARI MD Unavailable Unavailable SETTER, Dayanara CHAUDHARI MD Unavailable Unavailable SETTER, Dayanara CHAUDHARI MD Unavailable Unavailable SETTER, Dayanara CHAUDHARI MD Unavailable Unavailable SETTERDayanara MD Unavailable Unavailable SETTERDayanara MD Unavailable Unavailable SETTER, Dayanara CHAUDHARI MD Unavailable Unavailable SETTER, Dayanara CHAUDHARI MD Unavailable Unavailable SETTER, Dayanara CHAUDHARI MD Unavailable Unavailable SETTER, Dayanara CHAUDHARI MD Unavailable Unavailable SETTER, Dayanara CHAUDHARI MD Unavailable Unavailable SETTERDayanara MD Unavailable Unavailable SETTERDayanara MD Unavailable Unavailable SETTERDayanara MD Unavailable Unavailable SETTERDayanara MD Unavailable Unavailable SETTERDayanara MD Unavailable Unavailable SETTERDayanara MD Unavailable Unavailable SETTERDayanara MD Unavailable Unavailable SETTERDayanara MD Unavailable Unavailable SETTERDayanara MD Unavailable Unavailable SETTERDayanara MD Unavailable Unavailable SETTERDayanara MD Unavailable Unavailable SETTERDayanara MD Unavailable Unavailable SETTERDayanara MD Unavailable Unavailable SETTERDayanara MD Unavailable Unavailable SETTERDayanara MD Unavailable Unavailable SETTERDayanara MD Unavailable Unavailable SETTERDayanara MD Unavailable Unavailable SETTERDayanara MD Unavailable Unavailable SETTERDayanara MD Unavailable Unavailable SETTERDayanara MD Unavailable Unavailable SETTERDayanara MD Unavailable Unavailable SETTERDayanara MD Unavailable Unavailable SETTERDayanara MD Unavailable Unavailable SETTERDayanara MD Unavailable Unavailable SETTERDayanara MD Unavailable Unavailable SETTERDayanara MD Unavailable Unavailable SETTERDayanara MD Unavailable Unavailable SETTERDayanara MD Unavailable Unavailable Dayanara HODGSON MD Unavailable Unavailable Dayanara HODGSON MD Unavailable Unavailable Dayanara HODGSON MD Unavailable Unavailable Re-disclosure Warning The records that you are [...] is protected by Article 27-F of the [facility] Public Health law. If you continue you may have access to information: Regarding HIV / AIDS; Provided by facilities licensed or operated by the [facility] Office of Mental Health; or Provided by the [facility] Office for People With Developmental Disabilities. If such information is present, then the following [facility] mandated warning applies: This information has [...] law may result in a fine or alf sentence or both. A general authorization for the release of medical or other information is NOT sufficient authorization for further disc losure. Allergies and Adverse Reactions Type Description Substance Reaction Status Data Source(s ) Drug allergy MEPERIDINE HCL MEPERIDINE HCL [facility] Propensity to adverse reactions CODEINE [facility] Encounters Encounter Providers Location Date Indications Data Source(s ) [place] [address] [address] 11/27/2020 12:00:00 AM EDT eCW1 ([facility]) [place] [address] [address] 11/13/2020 12:00:00 AM EDT eCW1 ([facility]) Unknown [address] [place] [address] 10/06/2020 12:00:00 AM EDT eCW1 ([facility]) Unknown [address] [place] [address] 10/02/2020 12:00:00 AM EDT eCW1 ([facility]) Outpatient Attender: CADEN PATEL Main Office 09/11/2020 1 1:15:00 AM EDT MEDENT ([facility]) Office Visit, Est Pt., Level 2 FC [address] [place] [address] 09/11/2020 12:00:00 AM EDT eCW1 ([facility]) Unknown [address] [place] [address] 09/08/2020 12:00:00 AM EDT eCW1 ([facility]) Outpatient [address] [place] [address] 07/01/2020 12:00:00 AM EDT eCW1 ([facility]) Office Visit, Est Pt., Level 2 FC [address] [place] [address] 06/12/2020 12:00:00 AM EDT eCW1 ([facility]) Outpatient Attender: CADEN PATEL Main Office 06/10/2020 0 2:00:00 PM EDT MEDENT ([facility]) Unknown [address] [facility] [facility] [address] 06/06/2020 12:00:00 AM EDT eCW1 ([facility]) Unknown [address] [facility] [place] [address] 06/03/2020 12:00:00 AM EDT eCW1 ([facility]) Unknown [address] [place] [address] 06/02/2020 12:00:00 AM EDT eCW1 ([facility]) [place] [address] [address] 05/26/2020 12:00:00 AM EDT eCW1 ([facility]) Outpatient Attender: MAXIMUS STARK MD 05/23/2020 12:00:00 A M [facility] Outpatient Attender: MAXIMUS STARK MD 05/16/2020 12:00:00 A M [facility] Unknown [address] [address] 05/06/2020 12:00:00 AM EDT eCW1 ([facility]) Outpatient Attender: CADEN PATEL Main Office 04/29/2020 0 8:15:00 AM EDT MEDENT ([facility]) [place] [address] [address] 04/28/2020 12:00:00 AM EDT eCW1 ([facility]) [place] [address] [address] 04/25/2020 12:00:00 AM EDT eCW1 ([facility]) Outpatient Attender: MAXIMUS STARK MD [id number] 04/18/2020 12:0 0:00 AM EST Displaced transcondylar fracture of left humerus, subsequent encounter for fracture with routine healing [facility] Displaced transcondylar fracture of left humerus, subsequent encounter for fracture with routine healing Outpatient Referrer: MAXIMUS STARK MD 04/18/2020 12:0 0:00 AM EST Displaced transcondylar fracture of left humerus, initial encounter for closed fracture [facility] Displaced transcondylar fracture of left humerus, initial encounter for closed fracture Outpatient Attender: MAXIMUS STARK MDAdmitter: MAXIMUS STARK MD [id number] 04/04/2020 12:00:00 AM EST - 04/06/2020 01:21:00 PM EST Pain, unspecified [facility] Pain, unspecified Patient discharged. Outpatient Attender: MAXIMUS STARK MDReferrer: MAXIMUS STARK MD 04/04/2020 12:00:00 AM [facility] Outpatient Attender: FARA HODGSON MDReferrer: Nate Nichole 04/03/2020 12:00:00 AM [facility] Outpatient Attender: MAXIMUS STARK MDReferrer: Nate Nichole [id number] 04/01/2020 12:00:00 AM EST Displaced transcondylar fracture of left humerus, initial encounter for closed fracture [facility] Displaced transcondylar fracture of left humerus, initial encounter for closed fracture Outpatient Attender: MANUEL PIMENTELReferrer: MAXIMUS Nichole [id number] 04/01/2020 12:00:00 AM EST Contact with and (suspected) exposure to other viral communicable diseases [facility] Contact with and (suspected) exposure to other viral communicable diseases Outpatient Attender: FARA HODGSON MDReferrer: Nate Nichole 03/27/2020 12:00:00 AM [facility] OFFICE OUTPATIENT NEW 30 MINUTES Attender: Nate Mendez MD Physic al Therapy 03/26/2020 12:00:00 PM EST MEDENT ([facility]) [place] [address] [address] 03/26/2020 12:00:00 AM EST eCW1 ([facility]) [place] [address] [facility] [place] [address] 03/20/2020 12:00:00 AM EST eCW1 ([facility]) [place] [address] [facility] [place] [address] 03/20/2020 12:00:00 AM EST eCW1 ([facility]) [place] [address] [address] 03/04/2020 12:00:00 AM EST eCW1 ([facility]) [place] [address] [facility] [place] [address] 02/28/2020 12:00:00 AM EST eCW1 ([facility]) Unknown [address] [facility] [place] [address] 01/21/2020 12:00:00 AM EST eCW1 ([facility]) [place] [address] [address] 01/01/2020 12:00:00 AM EST eCW1 ([facility]) [place] [address] [address] 11/15/2019 12:00:00 AM EDT eCW1 ([facility]) [place] [address] [address] 11/15/2019 12:00:00 AM EDT eCW1 ([facility]) Medications Medication Brand Name Start Date Product Form Dose Route Admi nistrative Instructions Pharmacy Instructions Status Indications Reaction Description Data Source(s) Ketoconazole 20 MG/ML Topical Cream Ketoconazole 2 % Ketocon azole 2 % 11/28/2020 12:00:00 AM EDT 1.0 {application} active Ketoconazole 2 % W1 ([facility]) 150 mg 11/28/2020 12:00:00 AM EDT tablet 2 TAKE 1 TABLET BY MOUTH ONCE AND REPEAT IN 72 HOURS FOR 4 DAYS TAKE 1 TABLET BY MOUTH ONCE AND REPEAT I N 72 HOURS FOR 4 DAYS SOLD: 11/28/2020 [facility] 2 % 11/28/2020 12:00:00 AM EDT cream 30 APPLY TO PERINEAL AREA ONCE A DAY APPLY TO PERINEAL AREA ONCE A DAY SOLD: 11/28/2020 [facility] Fluconazole 150 MG Fluconazole 150 MG 11/28/2020 12:00:00 AM EDT 1.0 {tablet} active Fluconazole 150 MG e CW1 ([facility]) 10 mg 10/08/2020 12:00:00 AM EDT tablet 90 TAKE ONE TABLET BY MOUTH EVERY DAY TAKE ONE TABLET BY MOUTH EVERY DAY SOLD: 10/09/2020 [facility] atorvastatin 20 MG Oral Tablet ATORVASTATIN CALCIUM 10/08/2020 1 2:00:00 AM EDT tablet 90 TAKE ONE TABLET BY MOUTH EVERY D AY TAKE ONE TABLET BY MOUTH EVERY DAY SOLD: 10/09/2020 [facility] 20 mEq 09/24/2020 12:00:00 AM EDT tablet,ER particles/cry stals 90 TAKE ONE TABLET BY MOUTH EVERY DAY TAKE ONE TABLET BY MOUTH EVERY DAY SOLD: 09/24/2020 [facility] 100,000 unit/mL 09/08/2020 12:00:00 AM EDT suspension 140 TAKE 5 ML BY MOUTH FOUR TIMES A DAY TAKE 5 ML BY MOUTH FOUR TIMES A DAY SOLD: 09/08/2020 [facility] 750 mg 09/08/2020 12:00:00 AM EDT tablet 2 TAKE ONE TABLET BY MOUTH EVERY DAY TAKE ONE TABLET BY MOUTH EVERY DAY SOLD: 09/08/2020 [facility] 500 mg 09/02/2020 12:00:00 AM EDT tablet 7 TAKE ONE TABLET BY MOUTH EVERY DAY TAKE ONE TABLET BY MOUTH EVERY DAY SOLD: 09/03/2020 [facility] Prednisone 10 MG Oral Tablet predniSONE 10 MG predniSONE 10 MG 09/02/2020 12:00:00 AM EDT 1.0 {tablet} active pr edniSONE 10 MG eCW1 ([facility]) Prednisone 10 MG Oral Tablet predniSONE 10 MG predniSONE 10 MG 09/02/2020 12:00:00 AM EDT 1.0 {tablet} active pr edniSONE 10 MG eCW1 ([facility]) atorvastatin 20 MG Oral Tablet Atorvastatin Calcium 20 MG Atorvastatin Calcium 20 MG 09/02/2020 12:00:00 AM EDT 1.0 {tablet} suspe nded Atorvastatin Calcium 20 MG eCW1 ([facility]) Prednisone 10 MG Oral Tablet predniSONE 10 MG predniSONE 10 MG 09/02/2020 12:00:00 AM EDT 1.0 {tablet} active pr edniSONE 10 MG eCW1 ([facility]) Amlodipine 10 MG Oral Tablet amLODIPine Besylate 10 MG amLODIPine Besylate 10 MG 09/02/2020 12:00:00 AM EDT 1.0 {tablet} activ e amLODIPine Besylate 10 MG eCW1 ([facility]) atorvastatin 20 MG Oral Tablet Atorvastatin Calcium 20 MG Atorvastatin Calcium 20 MG 09/02/2020 12:00:00 AM EDT 1.0 {tablet} suspe nded Atorvastatin Calcium 20 MG eCW1 ([facility]) atorvastatin 20 MG Oral Tablet Atorvastatin Calcium 20 MG Atorvastatin Calcium 20 MG 09/02/2020 12:00:00 AM EDT 1.0 {tablet} activ e Atorvastatin Calcium 20 MG eCW1 ([facility]) atorvastatin 20 MG Oral Tablet Atorvastatin Calcium 20 MG Atorvastatin Calcium 20 MG 09/02/2020 12:00:00 AM EDT 1.0 {tablet} activ e Atorvastatin Calcium 20 MG eCW1 ([facility]) atorvastatin 20 MG Oral Tablet Atorvastatin Calcium 20 MG Atorvastatin Calcium 20 MG 09/02/2020 12:00:00 AM EDT 1.0 {tablet} activ e Atorvastatin Calcium 20 MG eCW1 ([facility]) atorvastatin 20 MG Oral Tablet Atorvastatin Calcium 20 MG Atorvastatin Calcium 20 MG 09/02/2020 12:00:00 AM EDT 1.0 {tablet} activ e Atorvastatin Calcium 20 MG eCW1 ([facility]) Amlodipine 10 MG Oral Tablet amLODIPine Besylate 10 MG amLODIPine Besylate 10 MG 09/02/2020 12:00:00 AM EDT 1.0 {tablet} activ e amLODIPine Besylate 10 MG eCW1 ([facility]) Amlodipine 10 MG Oral Tablet amLODIPine Besylate 10 MG amLODIPine Besylate 10 MG 09/02/2020 12:00:00 AM EDT 1.0 {tablet} activ e amLODIPine Besylate 10 MG eCW1 ([facility]) 24 HR Nicotine 0.875 MG/HR Transdermal Patch Nicotine Step 1 21 MG/24HR Nicotine Step 1 21 MG/24HR 09/02/2020 12:00:00 AM EDT 1.0 {patch_to_skin} active Nicotine Step 1 21 MG/24HR eCW1 ([facility]) 24 HR Nicotine 0.875 MG/HR Transdermal Patch Nicotine Step 1 21 MG/24HR Nicotine Step 1 21 MG/24HR 09/02/2020 12:00:00 AM EDT 1.0 {patch_to_skin} active Nicotine Step 1 21 MG/24HR eCW1 ([facility]) Prednisone 10 MG Oral Tablet predniSONE 10 MG predniSONE 10 MG 09/02/2020 12:00:00 AM EDT 1.0 {tablet} active pr edniSONE 10 MG eCW1 ([facility]) Amlodipine 10 MG Oral Tablet amLODIPine Besylate 10 MG amLODIPine Besylate 10 MG 09/02/2020 12:00:00 AM EDT 1.0 {tablet} activ e amLODIPine Besylate 10 MG eCW1 ([facility]) atorvastatin 40 MG Oral Tablet ATORVASTATIN CALCIUM 09/02/2020 1 2:00:00 AM EDT tablet 30 TAKE ONE TABLET BY MOUTH EVERY D AY TAKE ONE TABLET BY MOUTH EVERY DAY SOLD: 09/03/2020 [facility] Amlodipine 10 MG Oral Tablet amLODIPine Besylate 10 MG amLODIPine Besylate 10 MG 09/02/2020 12:00:00 AM EDT 1.0 {tablet} activ e amLODIPine Besylate 10 MG eCW1 ([facility]) 24 HR Nicotine 0.875 MG/HR Transdermal Patch Nicotine Step 1 21 MG/24HR Nicotine Step 1 21 MG/24HR 09/02/2020 12:00:00 AM EDT 1.0 {patch_to_skin} active Nicotine Step 1 21 MG/24HR eCW1 [facility] [place] 24 HR Nicotine 0.875 MG/HR Transdermal Patch Nicotine Step 1 21 MG/24HR Nicotine Step 1 21 MG/24HR 09/02/2020 12:00:00 AM EDT 1.0 {patch_to_skin} active Nicotine Step 1 21 MG/24HR eCW1 ([facility]) 10 mg 09/02/2020 12:00:00 AM EDT tablet 30 TAKE FOUR TABLETS BY MOUTH EVERY DAY FOR 3 DAYS THEN 3 ONCE DAILY FOR 3 DAYS THEN 2 ONCE DAILY FOR 3 DAYS THEN 1 ONCE DAILY FOR 3 DAYS THEN STOP TAKE FOUR TABLETS BY MOUTH EVERY DAY FOR 3 DAYS THEN 3 ONCE DAILY FOR 3 DAYS THEN 2 ONCE DAILY FOR 3 DAYS THEN 1 ONCE DAILY FOR 3 DAYS THEN STOP SOLD: 09/03/2020 [facility] Amlodipine 10 MG Oral Tablet amLODIPine Besylate 10 MG amLODIPine Besylate 10 MG 09/02/2020 12:00:00 AM EDT 1.0 {tablet} activ e amLODIPine Besylate 10 MG eCW1 ([facility]) 10 mg 09/02/2020 12:00:00 AM EDT tablet 30 TAKE ONE TABLET BY MOUTH EVERY DAY TAKE ONE TABLET BY MOUTH EVERY DAY SOLD: 09/03/2020 [facility] Klor-Con M20 Klor-Con M20 08/19/2020 12:00:00 AM EDT ORAL active MEDENT ([facility]) 5 mg 07/23/2020 12:00:00 AM EDT tablet 60 TAKE ONE TABLET BY MOUTH TWICE A DAY TAKE ONE TABLET BY MOUTH TWICE A DAY SOLD: 07/23/2020 [facility] 5 mg 07/23/2020 12:00:00 AM EDT tablet 60 TAKE ONE TABLET BY MOUTH TWICE A DAY TAKE ONE TABLET BY MOUTH TWICE A DAY SOLD: 10/09/2020 [facility] 10 mg 07/23/2020 12:00:00 AM EDT tablet 90 TAKE ONE TABLET BY MOUTH EVERY DAY NEEDED FOR LOWER EXTREMITY EDEMA TAKE ONE TABLET BY MOUTH EVERY DAY NEEDED FOR LOWER EXTREMITY EDEMA SOLD: 07/23/2020 [facility] 5 mg 07/23/2020 12:00:00 AM EDT tablet 60 TAKE ONE TABLET BY MOUTH TWICE A DAY TAKE ONE TABLET BY MOUTH TWICE A DAY SOLD: 09/24/2020 [facility] 25 mg 07/22/2020 12:00:00 AM EDT tablet 180 TAKE TWO TABLETS BY MOUTH EVERY DAY TAKE TWO TABLETS BY MOUTH EVERY DAY SOLD: 07/23/2020 [facility] Albuterol Sulfate HFA 108 (90 Base) MCG/ACT Albuterol Sulfate HFA 108 (90 Base) MCG/ACT 07/01/2020 12:00:00 AM EDT 1.0 {puff_as_needed} active Albuterol Sulfate HFA 108 (90 Base) MCG/ACT eCW1 ([facility]) Albuterol Sulfate HFA 108 (90 Base) MCG/ACT Albuterol Sulfate HFA 108 (90 Base) MCG/ACT 07/01/2020 12:00:00 AM EDT 1.0 {puff_as_needed} active Albuterol Sulfate HFA 108 (90 Base) MCG/ACT eCW1 ([facility]) Albuterol Sulfate HFA 108 (90 Base) MCG/ACT Albuterol Sulfate HFA 108 (90 Base) MCG/ACT 07/01/2020 12:00:00 AM EDT 1.0 {puff_as_needed} active Albuterol Sulfate HFA 108 (90 Base) MCG/ACT eCW1 ([facility]) 50 mcg 07/01/2020 12:00:00 AM EDT tablet 90 TAKE ONE TABLET BY MOUTH EVERY MORNING ON AN EMPTY STOMACH TAKE ONE TABLET BY MOUTH EVERY MORNING O N AN EMPTY STOMACH SOLD: 07/08/2020 [facility] Digoxin 0.125 MG Oral Tablet 125 mcg (0.125 mg) DIGOXIN 07/01/2020 12:00:00 AM EDT tablet 90 TAKE ONE TABLET BY MOUTH ANGELICA TAKE ONE TABLET BY MOUTH EVERY DAY SOLD: 07/08/2020 [facility] Albuterol Sulfate HFA 108 (90 Base) MCG/ACT Albuterol Sulfate HFA 108 (90 Base) MCG/ACT 07/01/2020 12:00:00 AM EDT 1.0 {puff_as_needed} active Albuterol Sulfate HFA 108 (90 Base) MCG/ACT eCW1 ([facility]) 20 mg 07/01/2020 12:00:00 AM EDT capsule,delayed release (DR/EC) 90 TAKE ONE CAPSULE BY MOUTH EVERY DAY 30 MINUTES BEFORE MEAL TAKE ONE CAPSULE BY MOUTH EVERY DAY 30 MINUTES BEFORE MEAL SOLD: 07/08/2020 [facility] Albuterol Sulfate HFA 108 (90 Base) MCG/ACT Albuterol Sulfate HFA 108 (90 Base) MCG/ACT 07/01/2020 12:00:00 AM EDT 1.0 {puff_as_needed} active Albuterol Sulfate HFA 108 (90 Base) MCG/ACT eCW1 ([facility]) 24 HR Bupropion Hydrochloride 150 MG Extended Release Oral T ablet BUPROPION HCL 07/01/2020 12:00:00 AM EDT tablet extended release 24 hr 90 TAKE ONE TABLET BY MOUTH EVERY MORNING TAKE ONE TABLET BY MOUTH EVERY MORNING SOLD: 09/24/2020 [facility] 90 mcg/actuation 07/01/2020 12:00:00 AM EDT HFA aerosol inha ler 8 INHALE ONE PUFF BY MOUTH EVERY 4 HOURS INHALE ONE PUFF BY MOUTH EVERY 4 HOURS SOLD: 07/08/2020 [facility] 5 mg 07/01/2020 12:00:00 AM EDT tablet 90 TAKE ONE TABLET BY MOUTH EVERY DAY TAKE ONE TABLET BY MOUTH EVERY DAY SOLD: 07/08/2020 [facility] Albuterol 0.833 MG/ML / Ipratropium Brom dk 0.167 MG/ML Inhalation Solution 0.5 mg-3 mg(2.5 mg base)/3 mL IPRATROPIUM/ALBUTEROL SULFATE 07/01/2020 12:00:00 AM EDT solution for nebulization 1080 1 VIAL VIA NEBULIZER EVERY 6 HOURS NEEDED 1 VIAL VIA NEBULIZER EVERY 6 HOURS NEEDED SOLD: 07/08/2020 [facility] 50 mcg 07/01/2020 12:00:00 AM EDT tablet 90 TAKE ONE TABLET BY MOUTH EVERY MORNING ON AN EMPTY STOMACH TAKE ONE TABLET BY MOUTH EVERY MORNING O N AN EMPTY STOMACH SOLD: 09/08/2020 [facility] Albuterol Sulfate HFA 108 (90 Base) MCG/ACT Albuterol Sulfate HFA 108 (90 Base) MCG/ACT 07/01/2020 12:00:00 AM EDT 1.0 {puff_as_needed} active Albuterol Sulfate HFA 108 (90 Base) MCG/ACT eCW1 ([facility]) Albuterol Sulfate HFA 108 (90 Base) MCG/ACT Albuterol Sulfate HFA 108 (90 Base) MCG/ACT 07/01/2020 12:00:00 AM EDT 1.0 {puff_as_needed} active Albuterol Sulfate HFA 108 (90 Base) MCG/ACT eCW1 ([facility]) Digoxin 0.125 MG Oral Tablet 125 mcg (0.125 mg) DIGOXIN 07/01/2020 12:00:00 AM EDT tablet 90 TAKE ONE TABLET BY MOUTH ANGELICA DAY TAKE ONE TABLET BY MOUTH EVERY DAY SOLD: 09/24/2020 [facility] 20 mg 07/01/2020 12:00:00 AM EDT capsule,delayed release (DR/EC) 90 TAKE ONE CAPSULE BY MOUTH EVERY DAY 30 MINUTES BEFORE MEAL TAKE ONE CAPSULE BY MOUTH EVERY DAY 30 MINUTES BEFORE MEAL SOLD: 09/24/2020 [facility] 24 HR Bupropion Hydrochloride 150 MG Extended Release Oral T ablet BUPROPION HCL 07/01/2020 12:00:00 AM EDT tablet extended release 24 hr 90 TAKE ONE TABLET BY MOUTH EVERY MORNING TAKE ONE TABLET BY MOUTH EVERY MORNING SOLD: 07/08/2020 [facility] 90 mcg/actuation 07/01/2020 12:00:00 AM EDT HFA aerosol inha ler 8 INHALE ONE PUFF BY MOUTH EVERY 4 HOURS INHALE ONE PUFF BY MOUTH EVERY 4 HOURS SOLD: 07/23/2020 [facility] 20 mEq/15 mL 06/10/2020 12:00:00 AM EDT liquid 30 TAKE 15ML BY MOUTH ONCE DAILY TAKE 15ML BY MOUTH ONCE DAILY SOLD: 06/10/2020 [facility] torsemide 10 MG Oral Tablet Torsemide 06/10/2020 12:00:00 AM EDT ORAL active MEDENT ([facility]) Klor-Con Klor-Con 06/10/2020 12:00:00 AM EDT ORAL compl eted MEDENT ([facility]) Prednisone 10 MG Oral Tablet Prednisone 06/09/2020 12:00:00 AM EDT ORAL active [facility] 24 HR Bupropion Hydrochloride 150 MG Extended Release Oral Tablet Bupropion Hydrochloride ER (XL) 06/09/2020 12:00:00 AM EDT ORAL a ctive MEDENT ([facility]) Digoxin 0.125 MG Oral Tablet [Digox] Digox 06/09/2020 12:00:00 AM EDT ORAL active MEDENT ([facility]) Preservision Areds 2 06/09/2020 12:00:00 AM EDT ORAL active MEDENT ([facility]) Digoxin 0.125 MG Oral Tablet Digoxin 125 MCG Digoxin 125 MCG 06/05/2020 12:00:00 AM EDT active Digoxin 125 MCG eCW1 ([facility]) Potassium Chloride 20 MEQ Extended Relea se Oral Tablet Potassium Chloride ER 20 MEQ Potassium Chloride ER 20 MEQ 06/05/2020 12:00:00 AM EDT 1.0 {tablet_with_food} active Potassium Chl oride ER 20 MEQ eCW1 ([facility]) Prednisone 10 MG Oral Tablet PredniSONE 10 MG PredniSONE 10 MG 06/05/2020 12:00:00 AM EDT 1.0 {tablet} active Pr edniSONE 10 MG eCW1 ([facility]) Potassium Chloride ER 20 MEQ Potassium Chloride ER 20 MEQ 12:00:00 AM EDT 1.0 {tablet_with_food} active P otassium Chloride ER 20 MEQ eCW1 ([facility]) Potassium Chloride 20 MEQ Extended Relea se Oral Tablet Potassium Chloride ER 20 MEQ Potassium Chloride ER 20 MEQ 06/05/2020 12:00:00 AM EDT 1.0 {tablet_with_food} active Potassium Chl oride ER 20 MEQ eCW1 ([facility]) Prednisone 10 MG Oral Tablet PredniSONE 10 MG PredniSONE 10 MG 06/05/2020 12:00:00 AM EDT 1.0 {tablet} active Pr edniSONE 10 MG eCW1 ([facility]) Potassium Chloride 20 MEQ Extended Relea se Oral Tablet Potassium Chloride ER 20 MEQ Potassium Chloride ER 20 MEQ 06/05/2020 12:00:00 AM EDT 1.0 {tablet_with_food} active Potassium Chl oride ER 20 MEQ eCW1 ([facility]) Potassium Chloride 20 MEQ Extended Relea se Oral Tablet Potassium Chloride ER 20 MEQ Potassium Chloride ER 20 MEQ 06/05/2020 12:00:00 AM EDT 1.0 {tablet_with_food} active Potassium Chl oride ER 20 MEQ eCW1 ([facility]) Potassium Chloride 20 MEQ Extended Relea se Oral Tablet Potassium Chloride ER 20 MEQ Potassium Chloride ER 20 MEQ 06/05/2020 12:00:00 AM EDT 1.0 {tablet_with_food} active Potassium Chl oride ER 20 MEQ eCW1 ([facility]) Digoxin 0.125 MG Oral Tablet Digoxin 125 MCG Digoxin 125 MCG 06/05/2020 12:00:00 AM EDT 1.0 {tablet} active Digoxin 12 5 MCG eCW1 ([facility]) Potassium Chloride 20 MEQ Extended Relea se Oral Tablet Potassium Chloride ER 20 MEQ Potassium Chloride ER 20 MEQ 06/05/2020 12:00:00 AM EDT 1.0 {tablet_with_food} active Potassium Chl oride ER 20 MEQ eCW1 ([facility]) Potassium Chloride 20 MEQ Extended Relea se Oral Tablet Potassium Chloride ER 20 MEQ Potassium Chloride ER 20 MEQ 06/05/2020 12:00:00 AM EDT 1.0 {tablet_with_food} active Potassium Chl oride ER 20 MEQ eCW1 ([facility]) Potassium Chloride 20 MEQ Extended Relea se Oral Tablet Potassium Chloride ER 20 MEQ Potassium Chloride ER 20 MEQ 06/05/2020 12:00:00 AM EDT 1.0 {tablet_with_food} active Potassium Chl oride ER 20 MEQ eCW1 ([facility]) Digoxin 0.125 MG Oral Tablet Digoxin 125 MCG Digoxin 125 MCG 06/05/2020 12:00:00 AM EDT active Digoxin 125 MCG eCW1 ([facility]) Digoxin 0.125 MG Oral Tablet Digoxin 125 MCG Digoxin 125 MCG 06/05/2020 12:00:00 AM EDT 1.0 {tablet} active Digoxin 12 5 MCG eCW1 ([facility]) Digoxin 0.125 MG Oral Tablet Digoxin 125 MCG Digoxin 125 MCG 06/05/2020 12:00:00 AM EDT 1.0 {tablet} active Digoxin 12 5 MCG eCW1 ([facility]) Potassium Chloride 20 MEQ Extended Relea se Oral Tablet Potassium Chloride ER 20 MEQ Potassium Chloride ER 20 MEQ 06/05/2020 12:00:00 AM EDT 1.0 {tablet_with_food} active Potassium Chl oride ER 20 MEQ eCW1 ([facility]) Digoxin 0.125 MG Oral Tablet Digoxin 125 MCG Digoxin 125 MCG 06/05/2020 12:00:00 AM EDT 1.0 {tablet} active Digoxin 12 5 MCG eCW1 ([facility]) Digoxin 0.125 MG Oral Tablet Digoxin 125 MCG Digoxin 125 MCG 06/05/2020 12:00:00 AM EDT 1.0 {tablet} active Digoxin 12 5 MCG eCW1 ([facility]) Prednisone 10 MG Oral Tablet PredniSONE 10 MG PredniSONE 10 MG 06/05/2020 12:00:00 AM EDT 1.0 {tablet} suspended PredniSONE 10 MG eCW1 ([facility]) Digoxin 0.125 MG Oral Tablet Digoxin 125 MCG Digoxin 125 MCG 06/05/2020 12:00:00 AM EDT active Digoxin 125 MCG eCW1 ([facility]) Digoxin 0.125 MG Oral Tablet Digoxin 125 MCG Digoxin 125 MCG 06/05/2020 12:00:00 AM EDT 1.0 {tablet} active Digoxin 12 5 MCG eCW1 ([facility]) Prednisone 10 MG Oral Tablet PredniSONE 10 MG PredniSONE 10 MG 06/05/2020 12:00:00 AM EDT 1.0 {tablet} active Pr edniSONE 10 MG eCW1 ([facility]) Digoxin 125 MCG Digoxin 125 MCG 06/05/2020 12:00:00 AM EDT 1.0 { tablet} active Digoxin 125 MCG eCW1 ([facility]) Albuterol 0.833 MG/ML / Ipratropium Brom dk 0.167 MG/ML Inhalation Solution 0.5 mg-3 mg(2.5 mg base)/3 mL IPRATROPIUM/ALBUTEROL SULFATE 06/03/2020 12:00:00 AM EDT solution for nebulization 75 1 VIAL VIA NEBU LIZER TWO TIMES A DAY 1 VIAL VIA NEBULIZER TWO TIMES A DAY SOLD: 06/04/2020 [facility] 20 mg 05/26/2020 12:00:00 AM EDT tablet 90 TAKE ONE TABLET BY MOUTH EVERY DAY TAKE ONE TABLET BY MOUTH EVERY DAY SOLD: 05/26/2020 [facility] Potassium Chloride 10 MEQ Extended Release Oral Tablet POTAS SIUM CHLORIDE 05/26/2020 12:00:00 AM EDT tablet extended release 90 TAKE ONE TABLET BY MOUTH EVERY DAY WITH FOOD TAKE ONE TABLET BY MOUTH EVERY DAY WITH FOOD SOLD: 05/26/2020 [facility] 20 mg 05/26/2020 12:00:00 AM EDT tablet 90 TAKE ONE TABLET BY MOUTH EVERY DAY TAKE ONE TABLET BY MOUTH EVERY DAY SOLD: 08/11/2020 [facility] 5-325 mg 05/05/2020 12:00:00 AM EDT tablet 20 TAKE ONE TABLET BY MOUTH EVERY 6 HOURS NEEDED FOR PAIN MAXIMUM DAILY DOSE = 6 TABLETS TAKE ONE TABLET BY MOUTH EVERY 6 HOURS NEEDED FOR PAIN MAXIMUM DAILY DOSE = 6 TABLETS SOLD: 05/05/2020 [facility] 24 HR Bupropion Hydrochloride 150 MG Extended Release Oral T ablet BUPROPION HCL 05/02/2020 12:00:00 AM EDT tablet extended release 24 hr 30 TAKE ONE TABLET BY MOUTH EVERY MORNING TAKE ONE TABLET BY MOUTH EVERY MORNING SOLD: 06/04/2020 [facility] 24 HR Bupropion Hydrochloride 150 MG Extended Release Oral T ablet BUPROPION HCL 05/02/2020 12:00:00 AM EDT tablet extended release 24 hr 30 TAKE ONE TABLET BY MOUTH EVERY MORNING TAKE ONE TABLET BY MOUTH EVERY MORNING SOLD: 05/03/2020 [facility] 24 HR Bupropion Hydrochloride 150 MG Ext ended Release Oral Tablet [Wellbutrin] Wellbutrin XL 150 MG Wellbutrin XL 150 MG 05/01/2020 12:00:00 AM EDT 1.0 {tablet_in_the_morning} active Wellbutr in XL 150 MG eCW1 ([facility]) 24 HR Bupropion Hydrochloride 150 MG Ext ended Release Oral Tablet [Wellbutrin] Wellbutrin XL 150 MG Wellbutrin XL 150 MG 05/01/2020 12:00:00 AM EDT 1.0 {tablet_in_the_morning} active Wellbutr in XL 150 MG eCW1 ([facility]) 24 HR Bupropion Hydrochloride 150 MG Ext ended Release Oral Tablet [Wellbutrin] Wellbutrin XL 150 MG Wellbutrin XL 150 MG 05/01/2020 12:00:00 AM EDT 1.0 {tablet_in_the_morning} active Wellbutr in XL 150 MG eCW1 ([facility]) 24 HR Bupropion Hydrochloride 150 MG Ext ended Release Oral Tablet [Wellbutrin] Wellbutrin XL 150 MG Wellbutrin XL 150 MG 05/01/2020 12:00:00 AM EDT 1.0 {tablet_in_the_morning} active Wellbutr in XL 150 MG eCW1 ([facility]) 24 HR Bupropion Hydrochloride 150 MG Ext ended Release Oral Tablet [Wellbutrin] Wellbutrin XL 150 MG Wellbutrin XL 150 MG 05/01/2020 12:00:00 AM EDT 1.0 {tablet_in_the_morning} active Wellbutr in XL 150 MG eCW1 ([facility]) 24 HR Bupropion Hydrochloride 150 MG Ext ended Release Oral Tablet [Wellbutrin] Wellbutrin XL 150 MG Wellbutrin XL 150 MG 05/01/2020 12:00:00 AM EDT 1.0 {tablet_in_the_morning} active Wellbutr in XL 150 MG eCW1 ([facility]) 24 HR Bupropion Hydrochloride 150 MG Ext ended Release Oral Tablet [Wellbutrin] Wellbutrin XL 150 MG Wellbutrin XL 150 MG 05/01/2020 12:00:00 AM EDT 1.0 {tablet_in_the_morning} active Wellbutr in XL 150 MG eCW1 ([facility]) 24 HR Bupropion Hydrochloride 150 MG Ext ended Release Oral Tablet [Wellbutrin] Wellbutrin XL 150 MG Wellbutrin XL 150 MG 05/01/2020 12:00:00 AM EDT 1.0 {tablet_in_the_morning} active Wellbutr in XL 150 MG eCW1 ([facility]) 24 HR Bupropion Hydrochloride 150 MG Ext ended Release Oral Tablet [Wellbutrin] Wellbutrin XL 150 MG Wellbutrin XL 150 MG 05/01/2020 12:00:00 AM EDT 1.0 {tablet_in_the_morning} active Wellbutr in XL 150 MG eCW1 ([facility]) 24 HR Bupropion Hydrochloride 150 MG Ext ended Release Oral Tablet [Wellbutrin] Wellbutrin XL 150 MG Wellbutrin XL 150 MG 05/01/2020 12:00:00 AM EDT 1.0 {tablet_in_the_morning} active Wellbutr in XL 150 MG eCW1 ([facility]) 24 HR Bupropion Hydrochloride 150 MG Ext ended Release Oral Tablet [Wellbutrin] Wellbutrin XL 150 MG Wellbutrin XL 150 MG 05/01/2020 12:00:00 AM EDT 1.0 {tablet_in_the_morning} active Wellbutr in XL 150 MG eCW1 ([facility]) 24 HR Bupropion Hydrochloride 150 MG Ext ended Release Oral Tablet [Wellbutrin] Wellbutrin XL 150 MG Wellbutrin XL 150 MG 05/01/2020 12:00:00 AM EDT 1.0 {tablet_in_the_morning} active Wellbutr in XL 150 MG eCW1 ([facility]) Albuterol 0.833 MG/ML / Ipratropium Brom dk 0.167 MG/ML Inhalant Solution Ipratropium-Albuterol 0.5-2.5 (3) MG/3ML Ipratropium-Albuterol 0.5-2.5 (3) MG/3ML 04/28/2020 12:00:00 AM EDT 3.0 {ml} active Ipratropium- Albuterol 0.5-2.5 (3) MG/3ML eCW1 ([facility]) torsemide 20 MG Oral Tablet Torsemide 20 MG Torsemide 20 MG 04/28/2020 12:00:00 AM EDT active Torsemide 20 MG e CW1 ([facility]) Ascorbic Acid 113 MG / Beta Carotene 716 0 MG / cuprous oxide 0.4 MG / dl-alpha tocopheryl acetate 100 UNT / Zinc Oxide 17.4 MG Oral Tablet [PreserVision] PreserVision AREDS - PreserVision AREDS - 04/28/2020 12:00:00 AM EDT active PreserVision AREDS - eCW1 ([facility]) Albuterol 0.833 MG/ML / Ipratropium Brom dk 0.167 MG/ML Inhalant Solution Ipratropium-Albuterol 0.5-2.5 (3) MG/3ML Ipratropium-Albuterol 0.5-2.5 (3) MG/3ML 04/28/2020 12:00:00 AM EDT 3.0 {ml_as_needed} active Ipratropium-Albuterol 0.5-2.5 (3) MG/3ML eCW1 ([facility]) PreserVision AREDS - PreserVision AREDS - 04/28/2020 12:00:00 AM EDT active PreserVision AREDS - eCW1 ([facility]) Thera M Plus - Thera M Plus - 04/28/2020 12:00:00 AM EDT suspended Thera M Plus - eCW1 ([facility]) torsemide 20 MG Oral Tablet Torsemide 20 MG Torsemide 20 MG 04/28/2020 12:00:00 AM EDT active Torsemide 20 MG e CW1 ([facility]) torsemide 20 MG Oral Tablet Torsemide 20 MG Torsemide 20 MG 04/28/2020 12:00:00 AM EDT active Torsemide 20 MG e CW1 ([facility]) Ascorbic Acid 113 MG / Beta Carotene 716 0 MG / cuprous oxide 0.4 MG / dl-alpha tocopheryl acetate 100 UNT / Zinc Oxide 17.4 MG Oral Tablet [PreserVision] PreserVision AREDS - PreserVision AREDS - 04/28/2020 12:00:00 AM EDT active PreserVision AREDS - eCW1 ([facility]) Sigrid Saleh Plus - Sigrid Saleh Plus - 04/28/2020 12:00:00 AM EDT active Sigrid Saleh Plus - eCW1 ([facility]) torsemide 20 MG Oral Tablet Torsemide 20 MG Torsemide 20 MG 04/28/2020 12:00:00 AM EDT active Torsemide 20 MG e CW1 ([facility]) torsemide 20 MG Oral Tablet Torsemide 20 MG Torsemide 20 MG 04/28/2020 12:00:00 AM EDT active Torsemide 20 MG e CW1 ([facility]) Potassium Chloride 10 MEQ Extended Relea se Oral Tablet Potassium Chloride ER 10 MEQ Potassium Chloride ER 10 MEQ 04/28/2020 12:00:00 AM EDT 1.0 {tablet_with_food} active Potassium Chl oride ER 10 MEQ eCW1 ([facility]) Sigrid Saleh Plus - Sigrid Saleh Plus - 04/28/2020 12:00:00 AM EDT suspended Sigrid Saleh Plus - eCW1 ([facility]) Sigrid Saleh Plus - Emrea Therese Plus - 04/28/2020 12:00:00 AM EDT suspended Sigrid Saleh Plus - eCW1 ([facility]) Sigrid Saleh Plus - Emrea Therese Plus - 04/28/2020 12:00:00 AM EDT suspended Sigrid Saleh Plus - eCW1 ([facility]) torsemide 20 MG Oral Tablet Torsemide 04/28/2020 12:00:00 AM EDT ORAL active MEDENT ([facility]) Potassium Chloride 20 MEQ Extended Release Oral Tablet Potas sium Chloride ER 04/28/2020 12:00:00 AM EDT ORAL completed MEDENT ([facility]) Albuterol 0.833 MG/ML / Ipratropium [place] 0.167 MG/M L Inhalant Solution Ipratropium [place]/Albuterol Sulfate 04/28/2020 12:00:00 AM EDT active MEDENT ([facility]) Albuterol 0.833 MG/ML / Ipratropium Brom dk 0.167 MG/ML Inhalant Solution Ipratropium-Albuterol 0.5-2.5 (3) MG/3ML Ipratropium-Albuterol 0.5-2.5 (3) MG/3ML 04/28/2020 12:00:00 AM EDT 3.0 {ml_as_needed} active Ipratropium-Albuterol 0.5-2.5 (3) MG/3ML eCW1 ([facility]) Metoprolol Tartrate 25 MG Oral Tablet Metoprolol Tartrate 12:00:00 AM EDT ORAL active [facility]ENT [facility] Ascorbic Acid 113 MG / Beta Carotene 716 0 MG / cuprous oxide 0.4 MG / dl-alpha tocopheryl acetate 100 UNT / Zinc Oxide 17.4 MG Oral Tablet [PreserVision] PreserVision AREDS - PreserVision AREDS - 04/28/2020 12:00:00 AM EDT active PreserVision AREDS - eCW1 ([facility]) Ascorbic Acid 113 MG / Beta Carotene 716 0 MG / cuprous oxide 0.4 MG / dl-alpha tocopheryl acetate 100 UNT / Zinc Oxide 17.4 MG Oral Tablet [PreserVision] PreserVision AREDS - PreserVision AREDS - 04/28/2020 12:00:00 AM EDT active PreserVision AREDS - eCW1 ([facility]) Albuterol 0.833 MG/ML / Ipratropium Brom dk 0.167 MG/ML Inhalant Solution Ipratropium-Albuterol 0.5-2.5 (3) MG/3ML Ipratropium-Albuterol 0.5-2.5 (3) MG/3ML 04/28/2020 12:00:00 AM EDT 3.0 {ml} active Ipratropium- Albuterol 0.5-2.5 (3) MG/3ML eCW1 ([facility]) Ascorbic Acid 113 MG / Beta Carotene 716 0 MG / cuprous oxide 0.4 MG / dl-alpha tocopheryl acetate 100 UNT / Zinc Oxide 17.4 MG Oral Tablet [PreserVision] PreserVision AREDS - PreserVision AREDS - 04/28/2020 12:00:00 AM EDT active PreserVision AREDS - eCW1 ([facility]) Ascorbic Acid 113 MG / Beta Carotene 716 0 MG / cuprous oxide 0.4 MG / dl-alpha tocopheryl acetate 100 UNT / Zinc Oxide 17.4 MG Oral Tablet [PreserVision] PreserVision AREDS - PreserVision AREDS - 04/28/2020 12:00:00 AM EDT suspended PreserVision AREDS - eCW1 ([facility]) Ascorbic Acid 113 MG / Beta Carotene 716 0 MG / cuprous oxide 0.4 MG / dl-alpha tocopheryl acetate 100 UNT / Zinc Oxide 17.4 MG Oral Tablet [PreserVision] PreserVision AREDS - PreserVision AREDS - 04/28/2020 12:00:00 AM EDT active PreserVision AREDS - eCW1 ([facility]) torsemide 20 MG Oral Tablet Torsemide 20 MG Torsemide 20 MG 04/28/2020 12:00:00 AM EDT active Torsemide 20 MG e CW1 ([facility]) torsemide 20 MG Oral Tablet Torsemide 20 MG Torsemide 20 MG 04/28/2020 12:00:00 AM EDT active Torsemide 20 MG e CW1 ([facility]) Thera M Plus - Thera M Plus - 04/28/2020 12:00:00 AM EDT suspended Thera M Plus - eCW1 ([facility]) Albuterol 0.833 MG/ML / Ipratropium Brom dk 0.167 MG/ML Inhalant Solution Ipratropium-Albuterol 0.5-2.5 (3) MG/3ML Ipratropium-Albuterol 0.5-2.5 (3) MG/3ML 04/28/2020 12:00:00 AM EDT 3.0 {ml_as_needed} active Ipratropium-Albuterol 0.5-2.5 (3) MG/3ML eCW1 ([facility]) torsemide 20 MG Oral Tablet Torsemide 20 MG Torsemide 20 MG 04/28/2020 12:00:00 AM EDT active Torsemide 20 MG e CW1 ([facility]) Ascorbic Acid 113 MG / Beta Carotene 716 0 MG / cuprous oxide 0.4 MG / dl-alpha tocopheryl acetate 100 UNT / Zinc Oxide 17.4 MG Oral Tablet [PreserVision] PreserVision AREDS - PreserVision AREDS - 04/28/2020 12:00:00 AM EDT active PreserVision AREDS - eCW1 ([facility]) torsemide 20 MG Oral Tablet Torsemide 20 MG Torsemide 20 MG 04/28/2020 12:00:00 AM EDT active Torsemide 20 MG e CW1 ([facility]) torsemide 20 MG Oral Tablet Torsemide 20 MG Torsemide 20 MG 04/28/2020 12:00:00 AM EDT active Torsemide 20 MG e CW1 ([facility]) Thera M Plus - Thera M Plus - 04/28/2020 12:00:00 AM EDT active Thera M Plus - eCW1 ([facility]) Potassium Chloride 10 MEQ Extended Relea se Oral Tablet Potassium Chloride ER 10 MEQ Potassium Chloride ER 10 MEQ 04/28/2020 12:00:00 AM EDT 1.0 {tablet_with_food} active Potassium Chl oride ER 10 MEQ eCW1 ([facility]) torsemide 20 MG Oral Tablet Torsemide 20 MG Torsemide 20 MG 04/28/2020 12:00:00 AM EDT active Torsemide 20 MG e CW1 ([facility]) Albuterol 0.833 MG/ML / Ipratropium Brom dk 0.167 MG/ML Inhalant Solution Ipratropium-Albuterol 0.5-2.5 (3) MG/3ML Ipratropium-Albuterol 0.5-2.5 (3) MG/3ML 04/28/2020 12:00:00 AM EDT 3.0 {ml} active Ipratropium- Albuterol 0.5-2.5 (3) MG/3ML eCW1 ([facility]) Albuterol 0.833 MG/ML / Ipratropium Brom dk 0.167 MG/ML Inhalant Solution Ipratropium-Albuterol 0.5-2.5 (3) MG/3ML Ipratropium-Albuterol 0.5-2.5 (3) MG/3ML 04/28/2020 12:00:00 AM EDT 3.0 {ml} active Ipratropium- Albuterol 0.5-2.5 (3) MG/3ML eCW1 ([facility]) Omeprazole 20 MG Delayed Release Oral Capsule Omeprazole 04/28/2020 12:00:00 AM EDT ORAL active [facility] [facility] Acetaminophen 325 MG Oral Tablet Acetaminophen 04/28/2020 12:00:00 AM EDT active MEDENT ([facility]) Albuterol 0.833 MG/ML / Ipratropium Brom dk 0.167 MG/ML Inhalant Solution Ipratropium-Albuterol 0.5-2.5 (3) MG/3ML Ipratropium-Albuterol 0.5-2.5 (3) MG/3ML 04/28/2020 12:00:00 AM EDT 3.0 {ml_as_needed} active Ipratropium-Albuterol 0.5-2.5 (3) MG/3ML eCW1 ([facility]) Albuterol 0.833 MG/ML / Ipratropium Brom dk 0.167 MG/ML Inhalant Solution Ipratropium-Albuterol 0.5-2.5 (3) MG/3ML Ipratropium-Albuterol 0.5-2.5 (3) MG/3ML 04/28/2020 12:00:00 AM EDT 3.0 {ml} active Ipratropium- Albuterol 0.5-2.5 (3) MG/3ML eCW1 ([facility]) Ascorbic Acid 113 MG / Beta Carotene 716 0 MG / cuprous oxide 0.4 MG / dl-alpha tocopheryl acetate 100 UNT / Zinc Oxide 17.4 MG Oral Tablet [PreserVision] PreserVision AREDS - PreserVision AREDS - 04/28/2020 12:00:00 AM EDT suspended PreserVision AREDS - eCW1 ([facility]) Thera M Plus - Thera M Plus - 04/28/2020 12:00:00 AM EDT active Sigrid Saleh Plus - eCW1 ([facility]) Sigrid Saleh Plus - Sigrid Saleh Plus - 04/28/2020 12:00:00 AM EDT active Sigrid Saleh Plus - eCW1 ([facility]) Ascorbic Acid 113 MG / Beta Carotene 716 0 MG / cuprous oxide 0.4 MG / dl-alpha tocopheryl acetate 100 UNT / Zinc Oxide 17.4 MG Oral Tablet [PreserVision] PreserVision AREDS - PreserVision AREDS - 04/28/2020 12:00:00 AM EDT suspended PreserVision AREDS - eCW1 (Formerly [facility]) Sigrid Saleh Plus - Sigrid Saleh Plus - 04/28/2020 12:00:00 AM EDT active Sigrid Saleh Plus - eCW1 ([facility]) Ascorbic Acid 113 MG / Beta Carotene 716 0 MG / cuprous oxide 0.4 MG / dl-alpha tocopheryl acetate 100 UNT / Zinc Oxide 17.4 MG Oral Tablet [PreserVision] PreserVision AREDS - PreserVision AREDS - 04/28/2020 12:00:00 AM EDT active PreserVision AREDS - eCW1 (Formerly [facility]) Ascorbic Acid 113 MG / Beta Carotene 716 0 MG / cuprous oxide 0.4 MG / dl-alpha tocopheryl acetate 100 UNT / Zinc Oxide 17.4 MG Oral Tablet [PreserVision] PreserVision AREDS - PreserVision AREDS - 04/28/2020 12:00:00 AM EDT active PreserVision AREDS - eCW1 (Formerly [facility]) Potassium Chloride 10 MEQ Extended Relea se Oral Tablet Potassium Chloride ER 10 MEQ Potassium Chloride ER 10 MEQ 04/28/2020 12:00:00 AM EDT 1.0 {tablet_with_food} active Potassium Chl oride ER 10 MEQ eCW1 ([facility]) Ascorbic Acid 113 MG / Beta Carotene 716 0 MG / cuprous oxide 0.4 MG / dl-alpha tocopheryl acetate 100 UNT / Zinc Oxide 17.4 MG Oral Tablet [PreserVision] PreserVision AREDS - PreserVision AREDS - 04/28/2020 12:00:00 AM EDT suspended PreserVision AREDS - eCW1 ([facility]) Albuterol 0.833 MG/ML / Ipratropium Brom dk 0.167 MG/ML Inhalant Solution Ipratropium-Albuterol 0.5-2.5 (3) MG/3ML Ipratropium-Albuterol 0.5-2.5 (3) MG/3ML 04/28/2020 12:00:00 AM EDT 3.0 {ml_as_needed} active Ipratropium-Albuterol 0.5-2.5 (3) MG/3ML eCW1 ([facility]) Albuterol 0.833 MG/ML / Ipratropium Brom dk 0.167 MG/ML Inhalant Solution Ipratropium-Albuterol 0.5-2.5 (3) MG/3ML Ipratropium-Albuterol 0.5-2.5 (3) MG/3ML 04/28/2020 12:00:00 AM EDT 3.0 {ml} active Ipratropium- Albuterol 0.5-2.5 (3) MG/3ML eCW1 ([facility]) Thera M Plus - Thera M Plus - 04/28/2020 12:00:00 AM EDT active Thera M Plus - eCW1 ([facility]) Albuterol 0.833 MG/ML / Ipratropium Brom dk 0.167 MG/ML Inhalant Solution Ipratropium-Albuterol 0.5-2.5 (3) MG/3ML Ipratropium-Albuterol 0.5-2.5 (3) MG/3ML 04/28/2020 12:00:00 AM EDT 3.0 {ml_as_needed} active Ipratropium-Albuterol 0.5-2.5 (3) MG/3ML eCW1 ([facility]) torsemide 20 MG Oral Tablet Torsemide 20 MG Torsemide 20 MG 04/28/2020 12:00:00 AM EDT active Torsemide 20 MG e CW1 ([facility]) Thera M Plus - Thera M Plus - 04/28/2020 12:00:00 AM EDT active Sigrid Saleh Plus - eCW1 ([facility]) Potassium Chloride 10 MEQ Extended Relea se Oral Tablet Potassium Chloride ER 10 MEQ Potassium Chloride ER 10 MEQ 04/28/2020 12:00:00 AM EDT 1.0 {tablet_with_food} active Potassium Chl oride ER 10 MEQ eCW1 ([facility]) Sigrid Saleh Plus - Sigrid Saleh Plus - 04/28/2020 12:00:00 AM EDT suspended Sigrid Saleh Plus - eCW1 ([facility]) Torsemide 20 MG Torsemide 20 MG 04/28/2020 12:00:00 AM EDT active Torsemide 20 MG eCW1 ([facility]) Sigrid Loza - Sigrid Saleh Plus - 04/28/2020 12:00:00 AM EDT active Sigrid Plus - eCW1 ([facility]) Ipratropium-Albuterol 0.5-2.5 (3) MG/3ML Ipratropium-A lbuterol 0.5-2.5 (3) MG/3ML 04/28/2020 12:00:00 AM EDT 3.0 {ml_as_needed} active Ipratropium-Albuterol 0.5-2.5 (3) MG/3ML eCW1 ([facility]) Albuterol 0.833 MG/ML / Ipratropium Brom kd 0.167 MG/ML Inhalant Solution Ipratropium-Albuterol 0.5-2.5 (3) MG/3ML Ipratropium-Albuterol 0.5-2.5 (3) MG/3ML 04/28/2020 12:00:00 AM EDT 3.0 {ml} active Ipratropium- Albuterol 0.5-2.5 (3) MG/3ML eCW1 ([facility]) torsemide 20 MG Oral Tablet Torsemide 20 MG Torsemide 20 MG 04/28/2020 12:00:00 AM EDT active Torsemide 20 MG e CW1 ([facility]) 20 mg 04/27/2020 12:00:00 AM EDT tablet 30 TAKE ONE TABLET BY MOUTH EVERY DAY TAKE ONE TABLET BY MOUTH EVERY DAY SOLD: 04/27/2020 [facility] 10 mEq 04/27/2020 12:00:00 AM EDT tablet,ER particles/cry stals 30 TAKE ONE TABLET BY MOUTH EVERY DAY TAKE ONE TABLET BY MOUTH EVERY DAY SOLD: 04/27/2020 [facility] 0.5 mg-3 mg(2.5 mg base)/3 mL 04/27/2020 12:00:0 0 AM EDT solution for nebulization 180 INHALE CONTENTS OF 1 VIAL VIA NE BULIZER TWO TIMES A DAY INHALE CONTENTS OF 1 VIAL VIA NEBULIZER TWO TIMES A DAY SOLD: 04/27/2020 [facility] oxyCODONE (ROXICODONE) immediate release tablet 2.5 mg 04/06/2020 06:50:18 AM EST 2.5 mg Oral active [Order 1 Start] Name: oxyCODONE (ROXICODONE) immediate release tablet 2.5 mg Signed Summary: 2.5 mg, Oral, Every 4 hours PRN, Moderate Pain (Pain Scale Score 4-6), Starting Steele 04/06/20 at 0650, For 72 hours
Oxycodone immediate release is limited to 10 mg per dose. Higher doses ( only) require Pain Service consultation and approval.
[Order 1 End] [Order 2 Start] Name: oxyCODONE (ROXICODONE) immediate release tablet 5 mg Signed Summary: 5 mg, Oral, Every 4 hours PRN, Severe Pain (Pain Scale Score 7-10), Starting Steele 04/06/20 at 0650, For 72 hours
Oxycodone immediate release is limited to 10 mg per dose. Higher doses ( only) require Pain Service consultation and approval.
[Order 2 End] [facility] Medication administered onsite 24 HR Nicotine 0.583 MG/HR Transdermal P atch nicotine (NICODERM CQ) 14 MG/24HR 1 patch nicotine (NICODERM CQ) 14 MG/24HR 1 patch 04/05/2020 01:00:00 PM EST 1 {patch} Transdermal active 1 patch, Transdermal, Administer over 24 Hours, Daily Standard, First dose (after last modification) on 04/05/20 at 1300, For 30 days [facility] Medication administered onsite potassium chloride (KLOR-CON) packet 40 mEq 8991-9472-96 04/05/2020 12:00:00 PM EST 40 meq Oral completed 40 mEq , Oral, Once, 04/05/20 at 1200, For 1 dose
Mix in 4 ounces of water or juice
[facility] Medication administered onsite Diazepam 5 MG Oral Tablet diazePAM (VALIUM) tablet 5 m g diazePAM (VALIUM) tablet 5 mg 04/05/2020 11:33:42 AM EST 5 mg Oral active 5 mg, Oral, Every 6 hours PRN, Muscle spasms, Starting 04/05/20 at 1133, For 3 days [facility] Medication administered onsite Amlodipine 5 MG Oral Tablet amlodipine (NORVASC) table t 5 mg amlodipine (NORVASC) tablet 5 mg 04/05/2020 09:00:00 AM EST 5 mg Oral active 5 mg, Oral, Daily Standard, First dose on 04/05/20 at 0900, For 30 days
Check vital signs before administering
[facility] Medication administered onsite apixaban 5 MG Oral Tablet apixaban (ELIQUIS) tablet 5 mg apixaban (ELIQUIS) tablet 5 mg 04/05/2020 09:00:00 AM EST 5 mg Oral active 5 mg, Oral, 2 Times Daily, First dose on 04/05/20 at 0900, For 30 days [facility] Medication administered onsite Levothyroxine Sodium 0.05 MG Oral Tablet levothyroxine (SYNTHROID) tablet 50 mcg levothyroxine (SYNTHROID) tablet 50 mcg 04/05/2020 06:00:00 AM EST 50 ug Oral active 50 mcg, Oral, D aily at 0600, First dose on 04/05/20 at 0600, For 30 days [facility] Medication administered onsite 100 mg 04/05/2020 12:00:00 AM EST capsule 14 TAKE ONE CAPSULE BY MOUTH TWICE A DAY FOR CONSTIPATION FOR UP TO 7 DAYS TAKE ONE CAPSULE BY MOUTH TWICE A DAY FOR CONSTIPATION FOR UP TO 7 DAYS SOLD: 04/06/2020 [facility] 5 mg 04/05/2020 12:00:00 AM EST tablet 18 TAKE ONE-HALF TO ONE TABLET BY MOUTH EVERY 4 HOURS NEEDED FOR PAIN FOR UP TO 3 DAYS MAXIMUM DAILY DOSE = SIX TABLETS TAKE ONE-HALF TO ONE TABLET BY MOUTH ANGELICA RY 4 HOURS NEEDED FOR PAIN FOR UP TO 3 DAYS MAXIMUM DAILY DOSE = SIX TABLETS SOLD: 04/06/2020 [facility] Acetaminophen 325 MG Oral Tablet Acetaminophen 325 MG Oral T ablet 04/05/2020 12:00:00 AM EST 650 mg Oral active Take 2 tablets by mouth every 6 (six) hours as needed for up to 10 days [facility] Docusate Sodium 100 MG Oral Capsule Docu sate Sodium 100 MG Oral Capsule (COLACE) Docusate Sodium 100 MG Oral Capsule (COLACE) 04/05/2020 12:00:00 AM EST 100 mg Oral active Take 1 cap akira by mouth Two times daily as needed for Constipation for up to 7 days [facility] Oxycodone Hydrochloride 5 MG Oral Tablet oxyCODONE HCl 5 MG Oral Tablet (ROXICODONE) oxyCODONE HCl 5 MG Oral Tablet (ROXICODONE) 04/05/2020 12:00:00 AM EST mg Oral active Take 0.5 -1 tablets by mouth every 4 (four) hours as needed for Pain for up to 3 days, Max Daily Dose: 30 mg [facility] Cefazolin 2000 MG Injection ceFAZolin (ANCEF) IVPB 2 g in dextrose (premix) ceFAZolin (ANCEF) IVPB 2 g in dextrose (premix) 04/04/2020 11:30:00 PM EST 2 g Intravenous completed 2 g, Int ravenous, Administer over 30 Minutes, Every 8 hours, First dose on Tue04/04/20 at 2330, For 2 doses [facility] Medication administered onsite sennosides, SHELTER 8.6 MG Oral Tablet senna tablet 2 tablet sen na tablet 2 tablet 04/04/2020 10:00:00 PM EST 2 {tbl} Oral active 2 tablet, Oral, Nightly, First dose on Tue04/04/20 at 2200, For 30 days [facility] Medication administered onsite Metoprolol Tartrate 25 MG Oral Tablet me toprolol tartrate (LOPRESSOR) tablet 25 mg metoprolol tartrate (LOPRESSOR) tablet 25 mg 04/04/2020 09:00:00 PM EST 25 mg Oral active 25 mg, Ora l, 2 Times Daily, First dose on Tue04/04/20 at 2100, For 30 days [facility] Medication administered onsite Docusate Sodium 100 MG Oral Capsule docusate sodium (C OLACE) capsule 100 mg docusate sodium (COLACE) capsule 100 mg 04/04/2020 09:00:00 PM EST 100 mg Oral active 100 mg, Oral, 2 Times Daily, First dose on Tue04/04/20 at 2100, For 30 days [facility] Medication administered onsite NaCl infusion 0.9 % [id number] 04/04/2020 07:15:00 PM EST Intravenous active at 100 mL/hr, Intrav enous, Continuous, Starting Tue04/04/20 at 1915, For 30 days [facility] Medication administered onsite oxyCODONE (ROXICODONE) immediate release tablet 2.5 mg 04/04/2020 07:08:59 PM EST 2.5 mg Oral aborted [facility] Medication administered onsite Acetaminophen 325 MG Oral Tablet acetaminophen (TYLENO L) tablet 650 mg acetaminophen (TYLENOL) tablet 650 mg 04/04/2020 07:08:22 PM EST 65 0 mg Oral active 650 mg, Oral, E very 6 hours PRN, Mild Pain (Pain Scale Score 1- 3), Starting Tue04/04/20 at 1908, For 30 days
Maximum daily dose of acetaminophen is 3,000 mg from all sources in 24 hours.
[facility] Medication administered onsite POLYETHYLENE GLYCOL 3350 142 MG/ML Oral Solution polyethylene glycol (MIRALAX) packet 17 g polyethylene glycol (MIRALAX) packet 17 g 04/04/2020 0 7:08:01 PM EST 17 g Oral active 17 g, Or al, Daily PRN, As needed for Constipation, Starting Tue04/04/20 at 1908, For 30 days
Mix in 8 ounces of water, juice or milk. Avoid use in patients who require thickened liquids due to potential increased risk for aspiration.
[facility] Medication administered onsite fentaNYL (SUBLIMAZE) (PF) injection 25 mcg [id number] 04/04/2020 07:08:00 PM EST 25 ug Intravenous active 25 m cg, Intravenous, Every 2 hours PRN, breakthrough pain, Starting Tue04/04/20 at 1908, For 3 days [facility] Medication administered onsite Bisacodyl 10 MG Rectal Suppository bisacodyl (DULCOLAX ) suppository 10 mg bisacodyl (DULCOLAX) suppository 10 mg 04/04/2020 07:08:00 PM EST 10 mg Rectal active 10 mg, Rectal, Daily PRN, Constipation, Starting Tue04/04/20 at 1908, For 30 days [facility] Medication administered onsite metaxalone 800 MG Oral Tablet metaxalone (SKELAXIN) ta blet 800 mg metaxalone (SKELAXIN) tablet 800 mg 04/04/2020 07:08:00 PM EST 800 mg Oral aborted 800 mg, Oral, Three Times Daily-PRN, Mu scle spasms, Starting Tue04/04/20 at 1908, For 30 days [facility] Medication administered onsite ondansetron (ZOFRAN) injection 4 mg [id number] 04/04/2020 07:08:0 0 PM EST 4 mg Intravenous active 4 mg, In travenous, Every 6 hours PRN, Nausea, Vomiting, Starting Tue04/04/20 at 1908, For 30 days [facility] Medication administered onsite Magnesium Hydroxide 80 MG/ML Oral Suspen nancy magnesium hydroxide (MILK OF MAGNESIA) 400 MG/5ML suspension 30 mL magnesium hydroxide (MILK OF MAGNESIA) 4 00 MG/5ML suspension 30 mL 04/04/2020 07:08:00 PM EST 30 mL Oral active 30 mL, Oral, Nightly PRN, Constipation, Starting Tue04/04/20 at 1908, For 30 days
If serum creatinine > 2 notify provider before administering.
[facility] Medication administered onsite 2 ML Midazolam 1 MG/ML Injection midazolam (PF) (VERSE D) injection 1 mg midazolam (PF) (VERSED) injection 1 mg 04/04/2020 06:15:00 PM EST 1 mg Intravenous completed 1 mg, Intrave nous, Once, Tue04/04/20 at 1815, For 1 dose, Recovery [facility] Medication administered onsite HYDROmorphone (DILAUDID) injection 0.5 mg [id number] 04/04/2020 05:32:33 PM EST 0.5 mg Intravenous aborted 0.5 mg, Intravenous, Every 5 min PRN, Severe Pain (Pain Scale Score 7-10), Starting Tue04/04/20 at 1732, For 4 doses, Recovery [facility] Medication administered onsite Albuterol 0.83 MG/ML Inhalant Solution a lbuterol (PROVENTIL) nebulizer solution 2.5 mg albuterol (PROVENTIL) nebulizer solution 2.5 mg 2020 02:45:00 PM EST 2.5 mg Nebulization completed 2 .5 mg, Nebulization, Once, Tue04/04/20 at 1445, For 1 dose, Pre-op [facility] Medication administered onsite Calcium Chloride 0.0014 MEQ/ML / Potassi um Chloride 0.004 MEQ/ML / Sodium Chloride 0.103 MEQ/ML / Sodium Lactate 0.028 MEQ/ML Injectable Solution lactated ringers infusion lactated ringers infusion 04/04/2020 01:45:00 PM EST 100 mL/h Intravenous active at 100 m L/hr, Intravenous, Continuous, Starting Tue04/04/20 at 1345, For 30 days
Keep Vein Open. Use Wide Tubing.
Pre-op [facility] Medication administered onsite sodium chloride (preservative free) 0.9 % flush 3 mL [id number] -04/04/2020 01:45:00 PM EST 3 mL Intravenous active 3 mL, Intravenous, Every 8 hours, First dose on Tue04/04/20 at 1345, For 30 days, Pre-op
Saline Lock. Flush Q8H and after each use to Saline Lock.
[facility] Medication administered onsite Acetaminophen 325 MG Oral Tablet acetaminophen (TYLENO L) tablet 975 mg acetaminophen (TYLENOL) tablet 975 mg 04/04/2020 01:45:00 PM EST 97 5 mg Oral completed 975 mg, Oral, O nce, Tue04/04/20 at 1345, For 1 dose
Maximum daily dose of acetaminophen is 3,000 mg from all sources in 24 hours.
Pre-op [facility] Medication administered onsite sodium chloride (preservative free) 0.9 % flush 3 mL [id number] 04/04/2020 01:34:10 PM EST 3 mL Intravenous active 3 mL, Intravenous, PRN, Line Care, Starting Tue04/04/20 at 1334, For 30 days, Pre-op
Saline Lock. Flush Q8H and after each use to Saline Lock.
[facility] Medication administered onsite 25 mg 03/27/2020 12:00:00 AM EST tablet 180 TAKE ONE TABLET BY MOUTH TWICE A DAY WITH FOOD TAKE ONE TABLET BY MOUTH TWICE A DAY WITH FOOD SOLD: 04/06/2020 [facility] 5-325 mg 03/25/2020 12:00:00 AM EST tablet 10 TAKE ONE TABLET BY MOUTH TWICE A DAY NEEDED FOR PAIN MAXIMUM DAILY DOSE = 2 TABLETS TAKE ONE TABLET BY MOUTH TWICE A DAY NEEDED FOR PAIN MAXIMUM DAILY DOSE = 2 TABLETS SOLD: 03/26/2020 [facility] Acetaminophen 325 MG / Hydrocodone Latisha trate 5 MG Oral Tablet HYDROcodone- Acetaminophen 5-325 MG Oral Tablet (LORTAB) HYDROcodone-Acetaminophen 5-325 MG Oral Tablet (LORTAB) 03/25/2020 12:00:00 AM EST aborted TAKE ONE TABLET BY MOUTH TWICE A DAY NEEDED FOR PAIN MAXIMUM DAILY DOSE 2 TABLETS [facility] 20 mg 03/21/2020 12:00:00 AM EST capsule,delayed release (DR/EC) 30 TAKE ONE CAPSULE BY MOUTH EVERY MORNING , 30 MINUTES BEFORE MORNING MEAL TAKE ONE CAPSULE BY MOUTH EVERY MORNING , 30 MINUTES BEFORE MORNING MEAL SOLD: 03/22/2020 [facility] 20 mg 03/21/2020 12:00:00 AM EST capsule,delayed release (DR/EC) 30 TAKE ONE CAPSULE BY MOUTH EVERY MORNING , 30 MINUTES BEFORE MORNING MEAL TAKE ONE CAPSULE BY MOUTH EVERY MORNING , 30 MINUTES BEFORE MORNING MEAL SOLD: 04/23/2020 [facility] 20 mg 03/21/2020 12:00:00 AM EST capsule,delayed release (DR/EC) 30 TAKE ONE CAPSULE BY MOUTH EVERY MORNING , 30 MINUTES BEFORE MORNING MEAL TAKE ONE CAPSULE BY MOUTH EVERY MORNING , 30 MINUTES BEFORE MORNING MEAL SOLD: 05/26/2020 [facility] Omeprazole 20 MG Delayed Release Oral Ca psule Omeprazole 20 MG Oral Capsule Delayed Release (PriLOSEC) Omeprazole 20 MG Oral Capsule Delayed Re lease (PriLOSEC) 03/21/2020 12:00:00 AM EST active TAKE ONE CAPSULE BY MOUTH EVERY MORNING 30 MINUTES BEFORE MORNING MEAL [facility] 25 mg 03/21/2020 12:00:00 AM EST tablet 90 TAKE ONE TABLET BY MOUTH EVERY DAY TAKE ONE TABLET BY MOUTH EVERY DAY SOLD: 03/22/2020 [facility] Omeprazole 20 MG Delayed Release Oral Capsule Omeprazole 20 MG 03/20/2020 12:00:00 AM EST active Omeprazo le 20 MG eCW1 ([facility]) Omeprazole 20 MG Delayed Release Oral Capsule Omeprazole 20 MG 03/20/2020 12:00:00 AM EST active Omeprazo le 20 MG eCW1 ([facility]) Omeprazole 20 MG Delayed Release Oral Capsule Omeprazole 20 MG 03/20/2020 12:00:00 AM EST active Omeprazo le 20 MG eCW1 ([facility]) Omeprazole 20 MG Delayed Release Oral Capsule Omeprazole 20 MG 03/20/2020 12:00:00 AM EST active Omeprazo le 20 MG eCW1 ([facility]) Omeprazole 20 MG Delayed Release Oral Capsule Omeprazole 20 MG 03/20/2020 12:00:00 AM EST active Omeprazo le 20 MG eCW1 ([facility]) Omeprazole 20 MG Delayed Release Oral Capsule Omeprazole 20 MG 03/20/2020 12:00:00 AM EST active Omeprazo le 20 MG eCW1 ([facility]) Omeprazole 20 MG Delayed Release Oral Capsule Omeprazole 20 MG 03/20/2020 12:00:00 AM EST active Omeprazo le 20 MG eCW1 ([facility]) Omeprazole 20 MG Delayed Release Oral Capsule Omeprazole 20 MG 03/20/2020 12:00:00 AM EST active Omeprazo le 20 MG eCW1 ([facility]) Omeprazole 20 MG Delayed Release Oral Capsule Omeprazole 20 MG 03/20/2020 12:00:00 AM EST active Omeprazo le 20 MG eCW1 ([facility]) Omeprazole 20 MG Delayed Release Oral Capsule Omeprazole 20 MG 03/20/2020 12:00:00 AM EST active Omeprazo le 20 MG eCW1 ([facility]) Omeprazole 20 MG Delayed Release Oral Capsule Omeprazole 20 MG 03/20/2020 12:00:00 AM EST active Omeprazo le 20 MG eCW1 ([facility]) Omeprazole 20 MG Delayed Release Oral Capsule Omeprazole 20 MG 03/20/2020 12:00:00 AM EST active Omeprazo le 20 MG eCW1 ([facility]) Omeprazole 20 MG Delayed Release Oral Capsule Omeprazole 20 MG 03/20/2020 12:00:00 AM EST active Omeprazo le 20 MG eCW1 ([facility]) Omeprazole 20 MG Delayed Release Oral Capsule Omeprazole 20 MG 03/20/2020 12:00:00 AM EST active Omeprazo le 20 MG eCW1 ([facility]) Omeprazole 20 MG Delayed Release Oral Capsule Omeprazole 20 MG 03/20/2020 12:00:00 AM EST active Omeprazo le 20 MG eCW1 ([facility]) Omeprazole 20 MG Delayed Release Oral Capsule Omeprazole 20 MG 03/20/2020 12:00:00 AM EST active Omeprazo le 20 MG eCW1 ([facility]) Omeprazole 20 MG Delayed Release Oral Capsule Omeprazole 20 MG 03/20/2020 12:00:00 AM EST active Omeprazo le 20 MG eCW1 ([facility]) Omeprazole 20 MG Delayed Release Oral Capsule Omeprazole 20 MG 03/20/2020 12:00:00 AM EST active Omeprazo le 20 MG eCW1 ([facility]) 200 mg 03/05/2020 12:00:00 AM EST tablet 30 TAKE 1 TABLET BY MOUTH DAILY TAKE 1 TABLET BY MOUTH DAILY SOLD: 03/10/2020 [facility] Fluconazole 200 MG Oral Tablet Fluconazole 200 MG 03/04/2020 12:00: 00 AM EST 1.0 {tablet} active Fluconazole 200 MG eCW1 ([facility]) Fluconazole 200 MG Oral Tablet Fluconazole 200 MG 03/04/2020 12:00: 00 AM EST 1.0 {tablet} active Fluconazole 200 MG eCW1 ([facility]) Fluconazole 200 MG Oral Tablet Fluconazole 200 MG 03/04/2020 12:00: 00 AM EST 1.0 {tablet} active Fluconazole 200 MG eCW1 ([facility]) Fluconazole 200 MG Oral Tablet Fluconazole 200 MG 03/04/2020 12:00: 00 AM EST 1.0 {tablet} active Fluconazole 200 MG eCW1 ([facility]) Fluconazole 200 MG Oral Tablet Fluconazole 200 MG 03/04/2020 12:00: 00 AM EST 1.0 {tablet} active Fluconazole 200 MG eCW1 ([facility]) Fluconazole 200 MG Oral Tablet Fluconazole 200 MG 03/04/2020 12:00: 00 AM EST 1.0 {tablet} active Fluconazole 200 MG eCW1 ([facility]) Fluconazole 200 MG Oral Tablet Fluconazole 200 MG 03/04/2020 12:00: 00 AM EST 1.0 {tablet} active Fluconazole 200 MG eCW1 ([facility]) Fluconazole 200 MG Oral Tablet Fluconazole 200 MG 03/04/2020 12:00: 00 AM EST 1.0 {tablet} active Fluconazole 200 MG [facility] ([facility]) Fluconazole 200 MG Oral Tablet Fluconazole 200 MG 03/04/2020 12:00: 00 AM EST 1.0 {tablet} suspended Fluconazole 200 M G eCW1 ([facility]) Fluconazole 200 MG Oral Tablet Fluconazole 200 MG 03/04/2020 12:00: 00 AM EST 1.0 {tablet} active Fluconazole 200 MG eCW1 ([facility]) Fluconazole 200 MG Oral Tablet Fluconazole 200 MG 03/04/2020 12:00: 00 AM EST 1.0 {tablet} suspended Fluconazole 200 M G eCW1 ([facility]) Fluconazole 200 MG Oral Tablet Fluconazole 200 MG 03/04/2020 12:00: 00 AM EST 1.0 {tablet} active Fluconazole 200 MG eCW1 ([facility]) Fluconazole 200 MG Oral Tablet Fluconazole 200 MG 03/04/2020 12:00: 00 AM EST 1.0 {tablet} suspended Fluconazole 200 M G eCW1 ([facility]) Fluconazole 200 MG Oral Tablet Fluconazole 200 MG 03/04/2020 12:00: 00 AM EST 1.0 {tablet} suspended Fluconazole 200 M G eCW1 ([facility]) Fluconazole 200 MG Oral Tablet Fluconazole 200 MG 03/04/2020 12:00: 00 AM EST 1.0 {tablet} suspended Fluconazole 200 M G eCW1 ([facility]) Fluconazole 200 MG Oral Tablet Fluconazole 200 MG 03/04/2020 12:00: 00 AM EST 1.0 {tablet} active Fluconazole 200 MG eCW1 ([facility]) Fluconazole 200 MG Oral Tablet Fluconazole 200 MG 03/04/2020 12:00: 00 AM EST 1.0 {tablet} active Fluconazole 200 MG eCW1 ([facility]) 25 mg 01/22/2020 12:00:00 AM EST tablet 30 TAKE ONE TABLET BY MOUTH EVERY DAY TAKE ONE TABLET BY MOUTH EVERY DAY SOLD: 01/23/2020 [facility] 5 mg 01/22/2020 12:00:00 AM EST tablet 30 TAKE ONE TABLET BY MOUTH EVERY DAY TAKE ONE TABLET BY MOUTH EVERY DAY SOLD: 01/23/2020 [facility] Tacrolimus 0.001 MG/MG Topical Ointment Tacrolimus 0.1 % Tac rolimus 0.1 % 01/01/2020 12:00:00 AM EST 1.0 {application} melissa pended Tacrolimus 0.1 % eCW1 ([facility]) Tacrolimus 0.001 MG/MG Topical Ointment Tacrolimus 0.1 % Tac rolimus 0.1 % 01/01/2020 12:00:00 AM EST 1.0 {application} melissa pended Tacrolimus 0.1 % eCW1 ([facility]) Tacrolimus 0.001 MG/MG Topical Ointment Tacrolimus 0.1 % Tac rolimus 0.1 % 01/01/2020 12:00:00 AM EST 1.0 {application} act gallito Tacrolimus 0.1 % eCW1 ([facility]) Tacrolimus 0.001 MG/MG Topical Ointment Tacrolimus 0.1 % Tac rolimus 0.1 % 01/01/2020 12:00:00 AM EST 1.0 {application} act gallito Tacrolimus 0.1 % eCW1 ([facility]) Tacrolimus 0.001 MG/MG Topical Ointment Tacrolimus 0.1 % Tac rolimus 0.1 % 01/01/2020 12:00:00 AM EST 1.0 {application} act gallito Tacrolimus 0.1 % eCW1 ([facility]) Tacrolimus 0.001 MG/MG Topical Ointment Tacrolimus 0.1 % Tac rolimus 0.1 % 01/01/2020 12:00:00 AM EST 1.0 {application} melissa pended Tacrolimus 0.1 % eCW1 ([facility]) Tacrolimus 0.001 MG/MG Topical Ointment Tacrolimus 0.1 % Tac rolimus 0.1 % 01/01/2020 12:00:00 AM EST 1.0 {application} act gallito Tacrolimus 0.1 % eCW1 ([facility]) Tacrolimus 0.001 MG/MG Topical Ointment Tacrolimus 0.1 % Tac rolimus 0.1 % 01/01/2020 12:00:00 AM EST 1.0 {application} act gallito Tacrolimus 0.1 % eCW1 ([facility]) Tacrolimus 0.001 MG/MG Topical Ointment Tacrolimus 0.1 % Tac rolimus 0.1 % 01/01/2020 12:00:00 AM EST 1.0 {application} act gallito Tacrolimus 0.1 % eCW1 ([facility]) Tacrolimus 0.001 MG/MG Topical Ointment Tacrolimus 0.1 % Tac rolimus 0.1 % 01/01/2020 12:00:00 AM EST 1.0 {application} melissa pended Tacrolimus 0.1 % eCW1 ([facility]) 0.1 % 01/01/2020 12:00:00 AM EST ointment 30 USE 1 APPLICATION TWO TIMES A DAY TO LIPS EXPERNALLY USE 1 APPLICATION TWO TIMES A DAY TO LIPS EXPERNALLY SOLD: 01/07/2020 [facility] Tacrolimus 0.001 MG/MG Topical Ointment Tacrolimus 0.1 % Tac rolimus 0.1 % 01/01/2020 12:00:00 AM EST 1.0 {application} act gallito Tacrolimus 0.1 % eCW1 ([facility]) Tacrolimus 0.001 MG/MG Topical Ointment Tacrolimus 0.1 % Tac rolimus 0.1 % 01/01/2020 12:00:00 AM EST 1.0 {application} act gallito Tacrolimus 0.1 % eCW1 ([facility]) Tacrolimus 0.001 MG/MG Topical Ointment Tacrolimus 0.1 % Tac rolimus 0.1 % 01/01/2020 12:00:00 AM EST 1.0 {application} act gallito Tacrolimus 0.1 % eCW1 ([facility]) Tacrolimus 0.001 MG/MG Topical Ointment Tacrolimus 0.1 % Tac rolimus 0.1 % 01/01/2020 12:00:00 AM EST 1.0 {application} act gallito Tacrolimus 0.1 % eCW1 ([facility]) Tacrolimus 0.001 MG/MG Topical Ointment Tacrolimus 0.1 % Tac rolimus 0.1 % 01/01/2020 12:00:00 AM EST 1.0 {application} melissa pended Tacrolimus 0.1 % eCW1 ([facility]) Tacrolimus 0.001 MG/MG Topical Ointment Tacrolimus 0.1 % Tac rolimus 0.1 % 01/01/2020 12:00:00 AM EST 1.0 {application} act gallito Tacrolimus 0.1 % eCW1 ([facility]) 25 mg 12/06/2019 12:00:00 AM EDT tablet 180 TAKE ONE TABLET BY MOUTH TWICE A DAY WITH FOOD TAKE ONE TABLET BY MOUTH TWICE A DAY WITH FOOD SOLD: 12/10/2019 [facility] 25 mg 11/17/2019 12:00:00 AM EDT capsule 30 TAKE ONE CAPSULE BY MOUTH IN THE EVENING NEEDED TAKE ONE CAPSULE BY MOUTH IN THE EVENING NEEDED JEN [facility] levocetirizine dihydrochloride 5 MG Oral Tablet Levocetirizine Dihydrochloride 5 MG Levocetirizine Dihydrochloride 5 MG 11/15/2019 12:00:00 AM EDT 1.0 {tablet_in_the_evening} active Levoceti rizine Dihydrochloride 5 MG eCW1 ([facility]) 5 mg 11/15/2019 12:00:00 AM EDT tablet 30 TAKE ONE TABLET BY MOUTH IN THE EVENING TAKE ONE TABLET BY MOUTH IN THE EVENING SOLD: 11/17/2019 [facility] Hydroxyzine Pamoate 25 MG Oral Capsule HydrOXYzine Chelo oate 25 MG HydrOXYzine Pamoate 25 MG 11/15/2019 12:00:00 AM EDT 1.0 {capsule_as_needed} active HydrOXYzine Pamoate 25 MG eCW1 ([facility]) Hydroxyzine Pamoate 25 MG Oral Capsule HydrOXYzine Chelo oate 25 MG HydrOXYzine Pamoate 25 MG 11/15/2019 12:00:00 AM EDT 1.0 {capsule_as_needed} active HydrOXYzine Pamoate 25 MG eCW1 ([facility]) levocetirizine dihydrochloride 5 MG Oral Tablet Levocetirizine Dihydrochloride 5 MG Levocetirizine Dihydrochloride 5 MG 11/15/2019 12:00:00 AM EDT 1.0 {tablet_in_the_evening} active Levoceti rizine Dihydrochloride 5 MG eCW1 ([facility]) 0.025 % 11/15/2019 12:00:00 AM EDT ointment 15 APPLY TO AFFECTED AREA(S) TWO TIMES A DAY APPLY TO AFFECTED AREA(S) TWO TIMES A DAY SOLD: 11/17/2019 [facility] Triamcinolone Acetonide 0.39970 MG/MG To pical Ointment Triamcinolone Acetonide 0.025 % Triamcinolone Acetonide 0.025 % 11/15/2019 12:00:00 AM EDT 1.0 {application} active Triamcinolone Acet onide 0.025 % eCW1 ([facility]) levocetirizine dihydrochloride 5 MG Oral Tablet Levocetirizine Dihydrochloride 5 MG Levocetirizine Dihydrochloride 5 MG 11/15/2019 12:00:00 AM EDT 1.0 {tablet_in_the_evening} active Levoceti rizine Dihydrochloride 5 MG eCW1 ([facility]) levocetirizine dihydrochloride 5 MG Oral Tablet Levocetirizine Dihydrochloride 5 MG Levocetirizine Dihydrochloride 5 MG 11/15/2019 12:00:00 AM EDT 1.0 {tablet_in_the_evening} active Levoceti rizine Dihydrochloride 5 MG eCW1 ([facility]) levocetirizine dihydrochloride 5 MG Oral Tablet Levocetirizine Dihydrochloride 5 MG Levocetirizine Dihydrochloride 5 MG 11/15/2019 12:00:00 AM EDT 1.0 {tablet_in_the_evening} active Levoceti rizine Dihydrochloride 5 MG eCW1 ([facility]) Triamcinolone Acetonide 0.17323 MG/MG To pical Ointment Triamcinolone Acetonide 0.025 % Triamcinolone Acetonide 0.025 % 11/15/2019 12:00:00 AM EDT 1.0 {application} active Triamcinolone Acet onide 0.025 % eCW1 ([facility]) Hydroxyzine Pamoate 25 MG Oral Capsule HydrOXYzine Chelo oate 25 MG HydrOXYzine Pamoate 25 MG 11/15/2019 12:00:00 AM EDT 1.0 {capsule_as_needed} active HydrOXYzine Pamoate 25 MG eCW1 ([facility]) Triamcinolone Acetonide 0.98014 MG/MG To pical Ointment Triamcinolone Acetonide 0.025 % Triamcinolone Acetonide 0.025 % 11/15/2019 12:00:00 AM EDT 1.0 {application} active Triamcinolone Acet onide 0.025 % eCW1 ([facility]) Triamcinolone Acetonide 0.61930 MG/MG To pical Ointment Triamcinolone Acetonide 0.025 % Triamcinolone Acetonide 0.025 % 11/15/2019 12:00:00 AM EDT 1.0 {application} active Triamcinolone Acet onide 0.025 % eCW1 ([facility]) Hydroxyzine Pamoate 25 MG Oral Capsule HydrOXYzine Chelo oate 25 MG HydrOXYzine Pamoate 25 MG 11/15/2019 12:00:00 AM EDT 1.0 {capsule_as_needed} active HydrOXYzine Pamoate 25 MG eCW1 ([facility]) Triamcinolone Acetonide 0.41497 MG/MG To pical Ointment Triamcinolone Acetonide 0.025 % Triamcinolone Acetonide 0.025 % 11/15/2019 12:00:00 AM EDT 1.0 {application} active Triamcinolone Acet onide 0.025 % eCW1 ([facility]) Hydroxyzine Pamoate 25 MG Oral Capsule HydrOXYzine Chelo oate 25 MG HydrOXYzine Pamoate 25 MG 11/15/2019 12:00:00 AM EDT 1.0 {capsule_as_needed} active HydrOXYzine Pamoate 25 MG eCW1 ([facility]) 4 mg 10/09/2019 12:00:00 AM EDT tablets,dose pack 21 DIRECTED DIRECTED SOLD: 10/09/2019 [facility] 5 mg 08/03/2019 12:00:00 AM EDT tablet 60 TAKE ONE TABLET BY MOUTH TWICE A DAY TAKE ONE TABLET BY MOUTH TWICE A DAY SOLD: 10/31/2019 [facility] 5 mg 08/03/2019 12:00:00 AM EDT tablet 60 TAKE ONE TABLET BY MOUTH TWICE A DAY TAKE ONE TABLET BY MOUTH TWICE A DAY SOLD: 04/07/2020 [facility] 5 mg 08/03/2019 12:00:00 AM EDT tablet 60 TAKE ONE TABLET BY MOUTH TWICE A DAY TAKE ONE TABLET BY MOUTH TWICE A DAY SOLD: 04/27/2020 [facility] 5 mg 08/03/2019 12:00:00 AM EDT tablet 60 TAKE ONE TABLET BY MOUTH TWICE A DAY TAKE ONE TABLET BY MOUTH TWICE A DAY SOLD: 06/04/2020 [facility] Ketorolac Tromethamine 10 MG Oral Tablet Ketorolac Tromethamine 10 MG Oral Tablet (TORADOL) Ketorolac Tromethamine 10 MG Oral Tablet (TORADOL) 12:00:00 AM EDT Oral aborted Take by mouth [facility] prednisolone acetate 10 MG/ML Ophthalmic Suspension prednisoLONE Acetate 1 % Ophthalmic Suspension (PRED FORTE) prednisoLONE Acetate 1 % Ophthalmic Suspension (PRED FORTE) 08/01/2019 12:00:00 AM EDT Ophthalmic aborted Apply to [facility] 50 mcg 01/26/2019 12:00:00 AM EST tablet 90 TAKE ONE TABLET BY MOUTH EVERY MORNING ON AN EMPTY STOMACH TAKE ONE TABLET BY MOUTH EVERY MORNING O N AN EMPTY STOMACH SOLD: 10/24/2019 [facility] 5 mg 01/24/2019 12:00:00 AM EST tablet 90 TAKE ONE TABLET BY MOUTH EVERY DAY TAKE ONE TABLET BY MOUTH EVERY DAY SOLD: 10/24/2019 [facility] 25 mg 01/10/2019 12:00:00 AM EST tablet 90 TAKE ONE TABLET BY MOUTH EVERY DAY DIRECTED TAKE ONE TABLET BY MOUTH EVERY DAY DIRECTED SOLD: 020 [facility] Insurance Providers Payer name Policy type / Coverage type Policy ID Covered green party ID Covered green party's relationship to delgado Policy Delgado Plan Information BCBS OF [facility] 306/806 [id number] SP [id number] [place] OF [place] 306/806 [id number] SP [id number] WELLCARE MEDICARE O G [id number] Self [id number] [facility] MEDICARE O G [id number] Self [id number] WELLCARE MEDICARE O G [id number] Self [id number] MEDICARE BLUE PPO 306 [id number] SP [id number] MEDICARE [id number] SP [id number] A ANSI-Medicare Part B [id number] ANSI-Medicare Part B [id number] ANSI-Medicare Part B [id number] ANSI-Medicare Part B [id number] ANSI-Medicare Part B [id number] ANSI-Medicare Part B [id number] ANSI-Medicare Part B [id number] ANSI-Medicare Part B [id number] ANSI-Medicare Part B [id number] ANSI-Medicare Part B [id number] MEDICARE C [id number] S [id number] A MEDICARE C [id number] S [id number] [employer] BCBS B [id number] S [id number] [employer] BCBS P [id number] S [id number] [employer] BCBS P [id number] S [id number] [place]BS [place] PPO 302/307 [id number] SP [id number] WELLCARE [id number] SP [id number] MEDICARE [id number] SP [id number] MEDICARE [id number] SP [id number] Medicare Part B [facility] Other 0 [id number] Self 0 MEDICARE [id number] SP [id number] A Problems, Conditions, and Diagnoses Code Display Name Description Problem Type Effective Dates Data Source(s) R52 Pain, unspecified Pain, unspecified Diagnosis 04/04/2020 01:29:00 PM [facility] Closed displaced transcondyl ar fracture of left humerus, initial encounter [S42.472A] Closed displaced transcondylar fracture of left humerus, initial encounter [S42.472A] Diagnosis 04/04/2020 01:29:00 PM [facility] Z20.828 Contact with and (suspected) exposure to other viral communicable diseases Contact with and (suspected) exposure to other viral communicable diseases Diagnosis 04/01/2020 12:14:25 PM [facility] S42.472D Displaced transcondylar frac ture of left humerus, subsequent encounter for fracture with routine healing Displaced transcondylar fracture of left humerus, subsequent encounter for fracture with routine healing Diagnosis 04/01/2020 11:21:16 AM [facility] S42.472A Displaced transcondylar frac ture of left humerus, initial encounter for closed fracture Displaced transcondylar fracture of left humerus, initial encounter for closed fracture Diagnosis 04/01/2020 11:21:16 AM EST [facility] J44.9 Chronic obstructive pulmonary disease, u nspecified Chronic obstruct airways disease Problem 09/12/2020 12:00:00 AM EDT eCW1 ([facility]) R13.10 [id number] Dysphagia, unspecified type Problem 06/13/19 12:00:00 AM EDT eCW1 ([facility]) I50.32 Chronic diastolic heart failure Chronic diastolic hear t failure Problem 04/29/2020 12:00:00 AM EDT MEDENT ([facility]) Z71.3 Dietary management surveillance Dietary management ned veillance Problem 04/29/2020 12:00:00 AM EDT [facility] ([facility]) Z71.6 Counseling about tobacco use Counseling about tobacco use Problem 04/29/2020 12:00:00 AM EDT [facility] ([facility]) F17.210 Tobacco user Tobacco user Problem 04/29/2020 12:00:00 A M EDT [facility] ([facility]) 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 Pr oblem 04/29/2020 12:00:00 AM EDT [facility] ([facility]) R94.31 Electrocardiogram abnormal Electrocardiogram abnormal Problem 04/29/2020 12:00:00 AM EDT [facility] ([facility]) I10 Essential hypertension Essential hypertension Problem 04/29/2020 12:00:00 AM EDT [facility] ([facility]) I48.91 Atrial fibrillation Atrial fibrillation Problem 0 04/29/2020 12:00:00 AM EDT [facility] ([facility]) I48.20 [id number] Chronic atrial fibrillation Problem 03/20/19 12:00:00 AM EST eCW1 ([facility]) Z85.828 [id number] History of skin cancer Problem 03/20/2020 12 :00:00 AM EST eCW1 ([facility]) Surgeries/Procedures Procedure Description Date Indications Data Source(s) ECG ROUTINE ECG W/LEAST 12 LDS W/I&R 09/11/2020 12:00: 00 AM EDT MED[facility] ([facility]) OFFICE OUTPATIENT VISIT 25 MINUTES 09/11/2020 12:00:00 AM EDT [facility] ([facility]) TOBACCO USE CESSATION INTERMEDIATE 3-10 MINUTES 2020 12:00:00 AM EDT [facility] ([facility]) ECG ROUTINE ECG W/LEAST 12 LDS W/I&R 06/10/2020 12:00: 00 AM EDT [facility] ([facility]) OFFICE OUTPATIENT VISIT 25 MINUTES 06/10/2020 12:00:00 AM EDT [facility] ([facility]) ECG ROUTINE ECG W/LEAST 12 LDS W/I&R 04/29/2020 12:00: 00 AM EDT MED[facility] ([facility]) OFFICE OUTPATIENT VISIT 25 MINUTES 04/29/2020 12:00:00 AM EDT [facility] ([facility]) TOBACCO USE CESSATION INTERMEDIATE 3-10 MINUTES 2020 12:00:00 AM EDT [facility] ([facility]) HEPATITIS C ANTIBODY <td>HEPATITIS C ANTIBODY</td ><td>Routine</td><td>04/06/2020 3:53 AM EST</td><td></td><td> </td> 04/06/2020 03:53:00 AM [facility] BLOOD COUNT COMPLETE AUTOMATED <td>CBC</td><td>Routine </td><td>04/06/2020 3:53 AM EST</td><td></td><td> </td> 04/06/2020 03:53:00 AM [facility] BASIC METABOLIC PANEL CALCIUM TOTAL <td>BASIC METABOLI C PANEL</td><td>Routine</td><td>04/06/2020 3:53 AM EST</td><td></td><td> </td> 04/06/2020 03:53:00 AM [facility] CREATININE BLOOD <td>CREATININE WITH GFR</td> <td>Routine</td><td>04/05/2020 3:16 AM EST</td><td></td><td> </td> 04/05/2020 03:16:00 AM [facility] COVID-19 PCR <td>COVID-19 PCR</td><td>Rou tri</td><td>04/04/2020 7:56 PM EST</td><td></td><td> </td> 04/04/2020 07:56:00 PM [facility] BASIC METABOLIC PANEL CALCIUM IONIZED <td>POCT ISTAT CHEM8</td><td>Routine</td><td>04/04/2020 2:48 PM EST</td><td></td><td> </td> 04/04/2020 02:48:00 PM [facility] SURGERY CASE REQUEST OUTSIDE FACILITY ONLY <td>SURGERY CASE REQUEST OUTSIDE FACILITY ONLY</td><td>Routine</td><td>04/01/2020 11:22 AM EST</td><td> Closed displaced transcondylar fracture of left humerus, initial encounter</td><td></td> 04/01/2020 11:22:48 AM EST Closed displaced transcondylar fracture of left humerus, initial encounter [facility] Closed displaced transcondylar fracture of left humerus, initial encounter Apply Cast Long Arm 03/26/2020 12:00:00 AM EST MEDENT ([facility]) ECG ROUTINE ECG W/LEAST 12 LDS W/I&R 03/20/2020 12:00: 00 AM EST eCW1 ([facility]) Results ID Date Data Source [id number] 11/09/2020 01:13:00 PM EDT [facility] Name Value Range Interpretation Code Description Data Chiara rce(s) Supporting Document(s) SARS-CoV-2 (COVID 19) NEGATIVE - SARS-CoV-2 (COVID19) [facility] This lab was ordered by [facility] a nd reported by [facility]. ID Date Data Source [id number] 09/08/2020 11:21:00 AM EDT [facility] ([facility] Name Value Range Interpretation Code Description Data Chiara rce(s) Supporting Document(s) White Blood Count 12.1 [facility] ([facility]) Red Blood Count 4.08 [facility]) Platelets 466 [facility] Hematocrit 37.8 [facility] ([facility]) Hemoglobin 11.9 [facility] ([facility]) ID Date Data Source [id number] 09/08/2020 11:21:00 AM EDT [facility] ([facility] Name Value Range Interpretation Code Description Data Chiara rce(s) Supporting Document(s) Blood Urea Nitrogen 17 [facility] ([facility] Glucose 86 [facility] Creatinine 0.59 [facility] ([facility]) Sodium 140 [facility] Potassium 3.8 [facility] Chloride 108 [facility] Carbon Dioxide 27 [facility]) Calcium 8.6 [facility] Glomerular filtration rate/1.73 sq M.pre dicted [Volume Rate/Area] in Serum or Plasma by Creatinine-based formula (MDRD) Laboratory test result [facility] ([facility]) ID Date Data Source [id number] 09/07/2020 11:20:00 AM EDT [facility] ([facility] Name Value Range Interpretation Code Description Data Chiara rce(s) Supporting Document(s) Glucose 108 [facility] Blood Urea Nitrogen 20 [facility] Sodium 136 [facility] Creatinine 0.68 [facility] ([facility]) Chloride 101 [facility] Potassium 4.1 [facility] Calcium 8.3 [facility] Carbon Dioxide 28 [facility] ([facility] Glomerular filtration rate/1.73 sq M.pre dicted [Volume Rate/Area] in Serum or Plasma by Creatinine-based formula (MDRD) Laboratory test result [facility] ([facility]) ID Date Data Source [id number] 09/07/2020 11:20:00 AM EDT [facility] Name Value Range Interpretation Code Description Data Chiara rce(s) Supporting Document(s) White Blood Count 13.3 [facility] ([facility]) Red Blood Count 4.21 [facility] ([facility]) Hemoglobin 12.4 [facility] ([facility]) Platelets 489 [facility] Hematocrit 38.4 [facility] ([facility]) ID Date Data Source [id number] 09/07/2020 11:20:00 AM EDT [facility] ([facility]) Name Value Range Interpretation Code Description Data Chiara rce(s) Supporting Document(s) Natriuretic peptide.B prohormone N-Terminal [Mass/volu me] in Serum or Plasma 3057 [facility] ([facility]) Digoxin [Mass/volume] in Serum or Plasma 0.9 [facility] ([facility]) ID Date Data Source [id number] 09/06/2020 05:29:00 PM EDT [facility] Name Value Range Interpretation Code Description Data Chiara rce(s) Supporting Document(s) SARS-CoV-2 (COVID 19) NEGATIVE - SARS-CoV-2 (COVID19) [facility] This lab was ordered by [facility] a nd reported by [facility]. ID Date Data Source [id number] 08/29/2020 06:07:00 PM EDT [facility] Name Value Range Interpretation Code Description Data Chiara rce(s) Supporting Document(s) SARS-CoV-2 (COVID 19) NEGATIVE - SARS-CoV-2 (COVID19) [facility] This lab was ordered by [facility] a nd reported by [facility]. ID Date Data Source [id number] 06/03/2020 01:12:00 PM EDT MED[facility] ([facility]) Name Value Range Interpretation Code Description Data Chiara rce(s) Supporting Document(s) Troponin Laboratory test result [facility] ([facility]) Natriuretic peptide.B prohormone N-Terminal [Mass/volu me] in Serum or Plasma 1874 [facility] ([facility]) ID Date Data Source [id number] 06/03/2020 01:12:00 PM EDT [facility] Name Value Range Interpretation Code Description Data Chiara rce(s) Supporting Document(s) Albumin [Mass/volume] in Serum or Plasma 2.4 [facility] ([facility]) Calcium [Mass/volume] in Serum or Plasma 8.3 [facility] ([facility]) Alanine aminotransferase [Enzymatic activity/volume] in Serum or Pl asma 27 [facility] ([facility]) Carbon dioxide, total [Moles/volume] in Serum or Plasma 30 [facility] ([facility]) Chloride [Moles/volume] in Serum or Plasma 92 [facility] ([facility]) Alkaline phosphatase [Enzymatic activity/volume] in Serum or Plasma 4 46 [facility] ([facility]) Protein [Mass/volume] in Serum or Plasma 6.1 [facility] ([facility]) Potassium [Moles/volume] in Serum or Plasma 3.0 [facility] ([facility]) Aspartate aminotransferase [Enzymatic activity/volume] in Serum or Plasma 39 [facility] ([facility]) Sodium 131 [facility] ([facility] Glucose 79 83-110 [facility] ([facility]) Urea nitrogen [Mass/volume] in Serum or Plasma 7 [facility] ([facility]) Creatinine For GFR 0.38 [facility] ([facility]) ID Date Data Source [id number] 06/03/2020 01:12:00 PM EDT [facility] ([facility]) Name Value Range Interpretation Code Description Data Chiara rce(s) Supporting Document(s) White Blood Count 8.8 5.0-10.0 [facility] ([facility]) Hemoglobin 10.8 [facility] ([facility]) Red Blood Count 3.36 4.00-5.40 [facility] ([facility]) Platelets 322 172-450 [facility] Hematocrit 32.8 [facility] ([facility]) ID Date Data Source [id number] 06/03/2020 11:27:00 AM [facility] Name Value Range Interpretation Code Description Data Chiara rce(s) Supporting Document(s) SARS-CoV-2 (COVID 19) NEGATIVE - SARS-CoV-2 (COVID19) [facility] a nd reported by [facility]. ID Date Data Source [id number] 04/27/2020 09:20:00 AM EDT [facility] ([facility]) Name Value Range Interpretation Code Description Data Chiara rce(s) Supporting Document(s) Magnesium Level 1.7 1.8-2.4 [facility] ([facility]) ID Date Data Source [id number] 04/27/2020 09:20:00 AM EDT [facility] ([facility]) Name Value Range Interpretation Code Description Data Chiara rce(s) Supporting Document(s) Sodium 130 [facility] ([facility]) Carbon dioxide, total [Moles/volume] in Serum or Plasma 35 [facility] ([facility]) Calcium [Mass/volume] in Serum or Plasma 8.4 [facility] ([facility]) Potassium [Moles/volume] in Serum or Plasma 3.0 [facility] ([facility]) Chloride [Moles/volume] in Serum or Plasma 90 [facility] ([facility]) Glucose 102 83-110 [facility] ([facility]) Blood Urea Nitrogen 8 7-18 [facility] (Ca [facility]di[facility]) Creatinine 0.50 0.6-1.0 [facility] ([facility]) Glomerular filtration rate/1.73 sq M.pre dicted [Volume Rate/Area] in Serum or Plasma by Creatinine-based formula (MDRD) Laboratory test result [facility] ([facility]) ID Date Data Source [id number] 04/27/2020 09:20:00 AM EDT [facility] ([facility]) Name Value Range Interpretation Code Description Data Chiara rce(s) Supporting Document(s) Red Blood Count 3.59 4.00-5.40 [facility] ([facility]) White Blood Count 9.2 5.0-10.0 [facility] ([facility]) Hemoglobin 11.6 [facility] ([facility]) Platelets 236 172-450 [facility] Hematocrit 34.4 [facility] ([facility]) ID Date Data Source [id number] 04/25/2020 02:00:00 PM EDT [facility] Name Value Range Interpretation Code Description Data Chiara rce(s) Supporting Document(s) SARS-CoV-2 (COVID 19) NEGATIVE - SARS-CoV-2 (COVID19) [facility] This lab was ordered by [facility] a nd reported by [facility]. ID Date Data Source [id number] 04/25/2020 09:17:00 AM EDT [facility] ([facility]) Name Value Range Interpretation Code Description Data Chiara rce(s) Supporting Document(s) Natriuretic peptide.B prohormone N-Terminal [Mass/volu me] in Serum or Plasma 1579 [facility] ([facility]) ID Date Data Source [id number] 04/25/2020 09:17:00 AM EDT [facility] ([facility]) Name Value Range Interpretation Code Description Data Chiara rce(s) Supporting Document(s) Albumin [Mass/volume] in Serum or Plasma 2.3 [facility] ([facility]) Alanine aminotransferase [Enzymatic activity/volume] in Serum or Pl asma 49 [facility] ([facility]) Calcium [Mass/volume] in Serum or Plasma 8.1 [facility] ([facility]) Chloride [Moles/volume] in Serum or Plasma 94 [facility] ([facility]) Carbon dioxide, total [Moles/volume] in Serum or Plasma 28 [facility] ([facility]) Protein [Mass/volume] in Serum or Plasma 5.4 [facility] ([facility]) Potassium [Moles/volume] in Serum or Plasma 3.6 [facility] ([facility]) Alkaline phosphatase [Enzymatic activity/volume] in Serum or Plasma 4 03 [facility] ([facility]) Sodium 131 [facility] Aspartate aminotransferase [Enzymatic activity/volume] in Serum or Plasma 45 [facility] ([facility]) Urea nitrogen [Mass/volume] in Serum or Plasma 6 [facility] ([facility]) Glucose 112 83-110 [facility] ([facility]) Creatinine For GFR 0.45 [facility] ([facility]) ID Date Data Source [id number] 04/25/2020 09:17:00 AM EDT [facility] ([facility]) Name Value Range Interpretation Code Description Data Chiara rce(s) Supporting Document(s) Red Blood Count 3.35 4.00-5.40 [facility] ([facility]) White Blood Count 7.1 5.0-10.0 [facility] ([facility]) Platelets 295 172-450 [facility] ([facility]) Hemoglobin 10.9 [facility] ([facility]) Hematocrit 31.9 [facility] ([facility]) ID Date Data Source [id number] 04/18/2020 10:10:05 AM [facility] Name Value Range Interpretation Code Description Data Chiara rce(s) Supporting Document(s) Progress Note [facility] LKXFUw1gTlJPQvPd34/NADizRYZbb9ReTRsqJHl1UZwgKGCnS5DuTLY5sE6qJVN0ZZbFNjWsPjCfUaCe [facility] [file] XrQrAN6BYh5SDsK8FAC9dLNbEg0GGYl7BTBEHlZbBI2TTZe= ID Date Data Source [id number] 04/18/2020 10:05:00 AM [facility] XR ELBOW 3-MORE VIEWS [id number] RESULTI nterpreted by:Maximus Stark, MDClinical history: Status post ORIF left distal humerus fractureViews: 4 views left elbowIndication: Check alignment status post ORIFFindings: Patient has dual column fixation of a distal humerus fracture which appears to be anatomically aligned and secured with plates and screws. Ulnohumeral and radiocapitellar joint spaces are well-preserved. Posterior skin robert are visualized.Impression: Status post open external fixation of left distal humerus transcondylar fracture.This document has been electronically signed by Maximus Stark MD on 04/18/2020 10:02 AM Name Value Range Interpretation Code Description Data Chiara rce(s) Supporting Document(s) ID Date Data Source [id number] 04/14/2020 08:31:13 AM EST [facility] XR HUMERUS MIN 2 VIEWS PORT-OR [id number] RESULTInterpreted by:Radha Olguin MDThis statement is intended for documentation purposes only.This exam was performed in the Operating Room by the Surgeon and a Radiologist was not present. Please refer to the Operative note in EPIC. This document has been electronically signed by Radha Olguin MD on 04/14/2020 8:29 AM Name Value Range Interpretation Code Description Data Chiara rce(s) Supporting Document(s) ID Date Data Source [id number] 04/07/2020 03:53:02 PM [facility] Name Value Range Interpretation Code Description Data Chiara rce(s) Supporting Document(s) Discharge Summary [facility] ZSCODn4uXaURIhQk76/ZUEakOMTvz1JbJMxfPMg5GNofHVQhB0TbQAK1uX4fHHX5OXeNOoDrYfBzKpMv lbm [file] ICAgICAgICAgICAgICAgICAgICAgICAgICAgICAgICAgICAgICAgICAgICAgICAgICAgICAgICAgICAg ICAgICAgICANCiAgICAgICAgICAgICAgICAgICAgIC AgICAgICAgICAgICAgICAgICAgICAgICAgICAgICAgICAgICAgICAgICAgICAgICAgICAgICAgICAgIC AgICAgICAgICAgICAgICAgICANCiAgICAgICAgICAgICAgICAgICAgICAgICAgICAgICAgICAgICAgIC AgICAgICAgICAgICAgICAgICAgICAgICAgICAgICAg ICAgICAgICAgICAgICAgICAgICAgICAgICAgICANCiAgICAgICAgICAgICAgICAgICAgICAgICAgICAg ICAgICAgICAgICAgICAgICAgICAgICAgICAgICAgICAgICAgICAgICAgICAgICAgICAgICAgICAgICAg ICAgICAgICAgICANCiAgICAgICAgICAgICAgICAgIC AgICAgICAgICAgICAgICAgICAgICAgICAgICAgICAgICAgICAgICAgICAgICAgICAgICAgICAgICAgIC AgICAgICAgICAgICAgICAgICAgICANCiAgICAgICAgICAgICAgICAgICAgICAgICAgICAgICAgICAgIC AgICAgICAgICAgICAgICAgICAgICAgICAgICAgICAg ICAgICAgICAgICAgICAgICAgICAgICAgICAgICAgICANCiAgICAgICAgICAgICAgICAgICAgICAgICAg ICAgICAgICAgICAgICAgICAgICAgICAgICAgICAgICAgICAgICAgICAgICAgICAgICAgICAgICAgICAg ICAgICAgICAgICAgICANCiAgICAgICAgICAgICAgIC AgICAgICAgICAgICAgICAgICAgICAgICAgICAgICAgICAgICAgICAgICAgICAgICAgICAgICAgICAgIC AgICAgICAgICAgICAgICAgICAgICAgICANCiAgICAgICAgICAgICAgICAgICAgICAgICAgICAgICAgIC AgICAgICAgICAgICAgICAgICAgICAgICAgICAgICAg ICAgICAgICAgICAgICAgICAgICAgICAgICAgICAgICAgICANCiAgICAgICAgICAgICAgICAgICAgICAg ICAgICAgICAgICAgICAgICAgICAgICAgICAgICAgICAgICAgICAgICAgICAgICAgICAgICAgICAgICAg ICAgICAgICAgICAgICAgICANCjw/sQDwA2ewsEHuqn Q9D1mqKf0NKz3PKN9cm2MtAYQgMGzingXoHjhAPrOmFWRgBgbXYwl3KPfpBS6ZsQEzH0EcQ4VvZDnzFN 1YTHPhXAMvtUIvTDYoIRNeZdT6QBHyQUiaFI7VeESlSLydTRMfRKSaOuArNQDbPQZfEGYvHEVdARSENQ 6IVkBvR8LnzE68XIYZIf7+KFmgytBfOalUBcM7VGNa n5HmPSz8IL4QEGRwSfyhg2DrHjgtOIUKBRpzEY7DEMG1BGV5ZECpMq4UHQEjP833cbXnZM6MNv8UCnQj YH7xjl0QFwqiUPApApuYGhe5UQnpGK9JlQEkRXeKyGSqmSRsF7CxI3EyuEZfqGZxjWSETNRvC6DiXZsu B4HstTyvqWjoEUItLYLhCr4pOH9wJZMcNLR6WlOnSC RPMJ6ZAADjVOCnuRGaWZBfAXFVYM1ZYYuvJHH6EXWasiNfaAYvBLbiXV6HLEIwgqAgOrcsJTGLLCq+Pg 8WAL0cd4IwLKfjEDOcVF9kty8PXBvOXzHrU0G3nDEqP8V1TNrmSt0BQNLqMDHzHlIhYSJUQYhyGF9CCW 6qltV5ID0JaYUvALWsILTsnPCjHNr1T98nkPUcRGnh ML3TKMZ+Jeremy+Zi3LVLMrKCWpUGMpSeXiICPWMvWdH8CoH1ARy8OrK5GiYU42fOcenmIoJOxqCL0BHF9r JYQeCEJXGE7QmLRzwB8ktaBgREWkJWMNUpEzL76luZThDLQdQEQ5LQMiXn9BBONjJ6ScbzFmmLocwfPn UZMwZUZMFN0ZRFdpelXfiMXqpYppBF46aBgyCQ2TKn 4GFcIqYH9cqp1SzFEfTk3GAZJtBM0CIMEiKPAaGDKzOPO3MDMbZlImVHsqRBQdKJBsFXT8GPFyGPTxLT 7XAeOfGLLvEiFoMnPvEJDeAJBowd4HLNMlNGUzSXx1RbHgOCOqZOFaAXfnSDYeMEBkKLI7TRJqDKQrOD 8LOlCqSEWjELW2OwzyXEXoEEOfco2ZHYQkDTUhXyP1 OZKvEGOjVLUbCPmtUYDgRHS1JGl2BHJdLCAfLI5UHbAfDEXnBWXiYDPbJLBbBUWhkm6WRREeLGJuDNCw SFUmQHMoKDJdMVqzLIOuGTI7HrH0MERtNOBpDF7LUtThEHFtAQEmVbGwGRPvQDOery3SBHVwMHZuINTu GGQkQITxMMHhQSnbLREzZGXkDfw3YDWwITHcHS6MDg EyDFElGDL1HAQbSHPuFHBcya5OQBZnTGYrJDk2WWTdQTYvNLVpRIgyPGEzYEEmZiR6WEFpYYSmQX1XSb WvQTXpOPD5FQRoRYZuOBNknw0BSUPmFYXuQcEfCWVlREZtGERiKAsrVZPhATN9PNh1GLUoUDMsKX7GHi XvIQZrLEAzFMNhBILxEKOjqs2QTWRbRJRrING5DVNf KMDvWXUzWXwfAFGjTHZ4LoB9ORQpNKQnHE1XSuFfWGXmERe6DLJxPEAmBHFmne9QFNAkHXShHFw5OlZs FFDrENJfTCycMGCdVHNzSAsyNCOqADKmSN9RJuQbAOKjZoErGTSmALQbMCWfil8IGDLtSIUpCVI3MbVz APMcOJZfYTwzGQKkZPKaMDI4IDJpLAHgXQ0RNaJhQB VxQgBzGBVuSOJuUFJggr4ICRTrMYWtJtX9VAUtUKAzCSQyAJn3weDlgTIoMUj6EY6PD4IqfpMyCbUFFx 7Kw133WOAbOXFbMe6JH9nfSr5gOULrUBUGLf4UFEh4ZgMnAAj7UVDgAwC7WXC4OjB9QVL8IAFcH7B2Hv NmZmQ+EOddZRDzMClyREUbBfG9BOf4ZTI8Qkt5LbEn ODViB3PiSZ1vHJUTLt3+VWgesPNiaZylSVRTNrYmMIf4FRpfXSKOQc1L ID Date Data Source [id number] 04/06/2020 01:38:06 PM [facility] Name Value Range Interpretation Code Description Data Chiara rce(s) Supporting Document(s) Progress Note [facility] XBCKMf8fMiBUTyOs33/XSAwxGADan0FrZDmfLOp2NPdbGYSkQ6LpEJM3zJ7xBGA2FHgJHfEmMaRoOyN4 lbm [file] KnOInaEjKjZY5iNIUVGb7+MDfxhOCdoRloAHFZCnzlVTcGUwOdRL6EHLg= ID Date Data Source [id number] 04/06/2020 06:49:04 AM [facility] Name Value Range Interpretation Code Description Data Chiara rce(s) Supporting Document(s) Progress Note [facility] TZKSVm1wUjGZJaHl83/WACjmGCGij0CjUIuzOIg3XFplBAAaE3LjTOL2wD1sPCI6JQrSTiZtKcJxAaI6 lbm [file] ICAgICAgICAgICAgICAgICAgICAgICAgICAgICAgIC AgICAgICAgICAgICAgICAgICANCiAgICAgICAgICAgICAgICAgICAgICAgICAgICAgICAgICAgICAgIC AgICAgICAgICAgICAgICAgICAgICAgICAgICAgICAgICAgICAgICAgICAgICAgICAgICAgICAgICAgIC ANCiAgICAgICAgICAgICAgICAgICAgICAgICAgICAg ICAgICAgICAgICAgICAgICAgICAgICAgICAgICAgICAgICAgICAgICAgICAgICAgICAgICAgICAgICAg ICAgICAgICAgICANCiAgICAgICAgICAgICAgICAgICAgICAgICAgICAgICAgICAgICAgICAgICAgICAg ICAgICAgICAgICAgICAgICAgICAgICAgICAgICAgIC AgICAgICAgICAgICAgICAgICAgICANCiAgICAgICAgICAgICAgICAgICAgICAgICAgICAgICAgICAgIC AgICAgICAgICAgICAgICAgICAgICAgICAgICAgICAgICAgICAgICAgICAgICAgICAgICAgICAgICAgIC AgICANCiAgICAgICAgICAgICAgICAgICAgICAgICAg ICAgICAgICAgICAgICAgICAgICAgICAgICAgICAgICAgICAgICAgICAgICAgICAgICAgICAgICAgICAg ICAgICAgICAgICAgICANCiAgICAgICAgICAgICAgICAgICAgICAgICAgICAgICAgICAgICAgICAgICAg ICAgICAgICAgICAgICAgICAgICAgICAgICAgICAgIC AgICAgICAgICAgICAgICAgICAgICAgICANCiAgICAgICAgICAgICAgICAgICAgICAgICAgICAgICAgIC AgICAgICAgICAgICAgICAgICAgICAgICAgICAgICAgICAgICAgICAgICAgICAgICAgICAgICAgICAgIC AgICAgICANCiAgICAgICAgICAgICAgICAgICAgICAg ICAgICAgICAgICAgICAgICAgICAgICAgICAgICAgICAgICAgICAgICAgICAgICAgICAgICAgICAgICAg ICAgICAgICAgICAgICAgICANCiAgICAgICAgICAgICAgICAgICAgICAgICAgICAgICAgICAgICAgICAg ICAgICAgICAgICAgICAgICAgICAgICAgICAgICAgIC AgICAgICAgICAgICAgICAgICAgICAgICAgICANCjw/yYPoM8ttrWPrrcT5W6evXj5UVa6URV2rv9JqYT UeNQuakpCyCdbVNcZhGQLtRkmTRsz8MFnmHY1AbEQcB8XaP5HxXPjrIQ4SHRJmWRLkdSQtZMKxMMZzGu T9TFCiDItkCJ2CpQFfMEwqIDEoZMFdIaYhRYThZYLu TYOzAVAcAGTZCQ2BErIbC3MwtT17CACREn1+ZXnxxuFzBqkPEsK8JBEhu5FbSHi6NT1ABALoAdttf1Tk KsdmHZFJAMjqAE5KBGM1RAA9CPDcUp9DFHYnE719veBfSO1THz8ZXyOhGP5qcp2YUdxxUUAhKhtKZmo7 ZTtvHV7NtWGcWTvOec1yssFdygDJu1MqkbTweHPZSM NcN2FzGRjfA1IcvQkjwYxxJEIjRKXvUh9pIC1kVRJnUYY6GaT8MWLMVF8YKHHlZTHvrSUbNSYxROHEJH 5GQJhdWYQ0KJYcmvTasDShPRwhEA6LKCWkjiKbZjVeOBGSXOs+Ow3PBF7lc8PeVAhxORGsCP6bod5QEV iPSvKrU8Y3zNAyQ1B6KQozCw8WRFRwGCWcWbFuXSOW MWjpAT3KDP3niqD1LO7ClNKaNIQzOVYiiMJyQXk7J48ysHXrWTnfGF4OWVA+Jeremy+Yv0QRWItKLHiHXHk NgTaSSORAdIoF4WgH8YAz1BbG8TvDB74lRqhwxWkBGhfCQ2IRU9jNGBgSXFCGD6ZmKWxzQ0bbeBnFfGz UXYQQvYxF79naBKvFPDiGDS9BTOfMg9AJBQlW8Nhjx AjrYpnlfGoIQMpVDNXSZ7MZIaepbFwdEUdnQalQY15cTxxRN2EIx2MMmTpRG6yxu4RqTHsPl6UXNCnKT 3LRFQvGSLqLLDnYKB6MUJoBgOnATcsSENdDCFlUBL0WAZiSPKnIU2YFyVdAAGjYDTfLtAaLXIqNIYexo 9ZRJUbFQJhZjw5XSJtCHFpCXWrMGxcSTXnKDZxXKD0 WGFoERSaHS9HNuGxXCHbSVPpGIRlTYHkETZptw3MNEVuVKMsUpD3XICxNTKySLTdYTdcRKKxCYD7WHov CUDdXJThIL4XVfEuMJNgCKIsIWZqCEMwVHTwhr0CCTXuGVNcDFh8DSBnLMEqKBFtEXvcUEOoEFG8FBr3 LQNqZXFkDK9ASgAtJRUcQKm9WAvzGYMjVRXmrl1JFS RqWSAcLBgeBLIqPRGvOQEiCBjjVOBtHXVaUdy8DEYiOPJlGQ7KZoOjAZVkGJG8ZEMwRONgQLRkcu4QVI VsRUKrPMS6IOWlXQBuADYsIMngPIYsQSYsWFGiMQJhRWSuHZ8WDqZqAIUyLFLhUdPxFUCpISVunb7WQK AwMDAxMjQxMyAwMDAwMCBuDQowMDAwMDEzMzczIDAw WVAkSM4IQxKtHAMhNUF3LqPgJETgOJQifn5MQVJjSTDzErx4FrMnHDRvGRXiORryFAAlNIX4QdMoIAHp XBHvKL4SWsHyBSKhWRJ7RGetOTVgVGXzuz3DXYNlZUWfBJTaAvJfCRCcHETsLIxlLPVsSLX4ONM6TVZw PAZaDW8AFzYtHEWlLZmvYNGvCZCeLFSmyg8WNSFwLZ RuFgO5SlWiMHUbBCZuZNjqMOXmGTO4ApC8LWUnWRVlTU1JGkHhFRcxYLWWRds1BVueF9f6CAZmGU3BR7 Osm1XeYrzpYXFPDIzwZU0mzeKpEWJqXm8RX8xZPdcbGGPgXymnHfnrJ8BpRUVbDUBaIZZ6T4AqYsCiEE QsZj1fHUN3GhC0HUPfYCEsR2R1QJUzOIXeWwOjFUGj BBJ1ELC7OgGfHM1RLk6TBqW4SEM9xWFwQr2NVJg8RwGLUpIoYI9TKYg= ID Date Data Source [id number] 04/06/2020 08:25:58 AM [facility] Name Value Range Interpretation Code Description Data Chiara rce(s) Supporting Document(s) Hepatitis C virus Ab [Presence] in Serum or Plasma by Immuno assay Non Reactive [facility] No serological evidence of active infect ion. If recent exposure is suspected, test for HCV RNA. ID Date Data Source [id number] 04/06/2020 04:05:29 AM [facility] Name Value Range Interpretation Code Description Data Chiara rce(s) Supporting Document(s) Leukocytes [#/volume] in Blood by Automated count 10.4 10*3/uL 4-10 H [facility] Erythrocytes [#/volume] in Blood by Automated count 3.91 10*6/uL 4.1- 5.3 L [facility] Hemoglobin [Mass/volume] in Blood 12.5 g/dL 11.5-15.5 [facility] Hematocrit [Volume Fraction] of Blood by Automated count 38.1 % 3 6-45 [facility] Erythrocyte mean corpuscular volume [Entitic volume] by Auto mated count 97.5 fL 80-96 H [facility] Erythrocyte mean corpuscular hemoglobin [Entitic mass] by Automated count 32.0 pg 27-33 [facility] Erythrocyte mean corpuscular hemoglobin concentration [Mass/volume] by Automated count 32.8 g/[facility] [facility] width [Ratio] by Automated count 15.9 % 11.5-14.5 H [facility] Platelets [#/volume] in Blood by Automated count 389 10*3/uL 150-400 [facility] ID Date Data Source [id number] 04/06/2020 04:33:55 AM [facility] Name Value Range Interpretation Code Description Data Chiara rce(s) Supporting Document(s) Bicarbonate [Moles/volume] in Serum 31 mmol/L 22-29 H [facility] Chloride [Moles/volume] in Serum or Plasma 93 mmol/L 98-107 L [facility] Creatinine [Mass/volume] in Serum or Plasma 0.54 mg/dL 0.50-0.90 [facility] Glucose [Mass/volume] in Serum or Plasma 93 mg/dL 70-140 [facility] Potassium [Moles/volume] in Serum or Plasma 3.8 mmol/L 3.4-5.1 [facility] Sodium [Moles/volume] in Serum or Plasma 131 mmol/L 136-145 L [facility] Urea nitrogen [Mass/volume] in Serum or Plasma 8 mg/dL 8-23 [facility] Anion gap 3 in Serum or Plasma 7 mmol/L 8-15 L [facility] Osmolality of Serum or Plasma by calculation 270 mosm/kg 275-300 L [facility] Creatinine/Urea nitrogen [Mass Ratio] in Serum or Plasma 15 [facility] Calcium [Mass/volume] in Serum or Plasma 8.8 mg/dL 8.8-10.2 [facility] Glomerular filtration rate/1.73 sq M pre dicted among non-blacks [Volume Rate/Area] in Serum or Plasma by Creatinine-based formula (MDRD) >6 0 [facility] Glomerular filtration rate/1.73 sq M pre dicted among blacks [Volume Rate/Area] in Serum or Plasma by Creatinine-based formula (MDRD) >60 [facility] ID Date Data Source [id number] 04/05/2020 07:25:40 PM [facility] Name Value Range Interpretation Code Description Data Chiara rce(s) Supporting Document(s) Progress Note [facility] DFGXOi7aUhOODkLq50/OUJgyNUJtn2OpMMsjPDl8CThiLUHpE5KxEMJ7zB4vHGZ8CIsDPpCxNiJiFvY9 [facility] [file] BlDTWgVHb2PDjmFhy9CSSeFlT+HI7gMUy+Gg2Dv3MyppN1idLzLZu6Pwg5FMljACALRs4A ID Date Data Source [id number] 04/05/2020 01:24:45 PM [facility] Name Value Range Interpretation Code Description Data Chiara rce(s) Supporting Document(s) Progress Note [facility] NASXJm9eHrQCLaXu73/JGKidZHFso3WiWSqrMBm5VZcrHQTqR6MdPTX3cI6zTDZ4GNnPAtFlNwIsWjM9 lbm [file] ID Date Data Source [id number] 04/05/2020 01:24:10 PM EST [facility] Name Value Range Interpretation Code Description Data Chiara rce(s) Supporting Document(s) Operative Note [facility] WIQBPa1cHgRNUhQq91/JHQvhJILjj5ZuQIspRXh0UCqlZZMxN7EjIGZ5bK4tVDI4YQxNQqRxJcDaBnA8 lbm [file] mZfmUMXIIzN4CrJ4XIdlKSSGIv4V ID Date Data Source [id number] 04/05/2020 11:35:11 AM EST [facility] Name Value Range Interpretation Code Description Data Chiara rce(s) Supporting Document(s) Progress Note [facility] UDGBKl1pQcDFJmGe77/BCCstHONnp9EvWLipQEm6DFelPPXzC0XyDHP8gV9qBXI9VFuOPzBtEdThToB1 m LbVmyFIqAtLUJgRciIWqOxJOhhKqzauQSvAC5IqRE6LEXuI27cVTHsLVWvZ3OgCLGhTfz+Cg0GHHEktE OrBQ3JPeiC8FmAukkF4B9Z+NvjGiEnV5vhQJZgxN9zyhbkrQWrQ0bgLLLiAEJYl4jNkBo7NP9hXQBzrb B0GrAVcgcCP6TNmVBaGJ7VUPd+/nqjjf80Y5e/5Z9B CHisdo05S8sshkZa9+zO7EoZuKlowJnX/znX2eWb+hq7rhwEluMc9ePrEqCEFjFiAF/8ffo0uc1j+QH7 lMOyNimI0miA++3ZA1LSCplRm5+z/s/stM8+wQ8ZzS2JRv1KaFwjh3qI7ErBURrMLQBFkubrwnjPty9l Hc6BeOLoQMpqI09nJgMp8m7Y9JV8l8oRciufS1NOep Y3lNXIuJzDeJkO8eZu4ZwWG3Be7C6pVT2PetAKFyxz4D6iCBj5u0dBQ10Sb7JVS0mogZPos5bIL8vvTU ZVro4Ji0jxd+U0pKoM+w3Gu6mg5DL+Keu6T3TwbzsQQJgQmm3X5qqrftWvZfjS+079BDkxR6xQUFyePe hdBT6k6mvico1Yai+kJOJrEPdNW1dPvcZlTyr0Zz8w l0ZMtS6Nxm7Y78vSmNbdfB3spqU77UUAgcAoqiujsPKd+ShBWNirx0F4cUuuVlPTHpd7SMU/DAJxKAPl qVYJlSbBv8yYSZXiMHHm/gg7JU5A6YrnDEr1ofCoAjbhoZL8NGoCCktT2cfiXCHVnWYGUscJduQUFE2S GVFG8A4OAKJQ7rvQESGVhzPRwHQ/fQQBEVY4nSpmns [file] ICAgICAgICAgICAgICAgICAgICAgICAgICAgICAgIC AgICAgICAgICAgICAgICAgICAgICAgICAgICAgICAgICAgICAgICAgICAgICAgICAgICANCiAgICAgIC AgICAgICAgICAgICAgICAgICAgICAgICAgICAgICAgICAgICAgICAgICAgICAgICAgICAgICAgICAgIC AgICAgICAgICAgICAgICAgICAgICAgICAgICAgICAg ICANCiAgICAgICAgICAgICAgICAgICAgICAgICAgICAgICAgICAgICAgICAgICAgICAgICAgICAgICAg ICAgICAgICAgICAgICAgICAgICAgICAgICAgICAgICAgICAgICAgICAgICANCiAgICAgICAgICAgICAg ICAgICAgICAgICAgICAgICAgICAgICAgICAgICAgIC AgICAgICAgICAgICAgICAgICAgICAgICAgICAgICAgICAgICAgICAgICAgICAgICAgICAgICANCiAgIC AgICAgICAgICAgICAgICAgICAgICAgICAgICAgICAgICAgICAgICAgICAgICAgICAgICAgICAgICAgIC AgICAgICAgICAgICAgICAgICAgICAgICAgICAgICAg ICAgICANCiAgICAgICAgICAgICAgICAgICAgICAgICAgICAgICAgICAgICAgICAgICAgICAgICAgICAg ICAgICAgICAgICAgICAgICAgICAgICAgICAgICAgICAgICAgICAgICAgICAgICANCiAgICAgICAgICAg ICAgICAgICAgICAgICAgICAgICAgICAgICAgICAgIC AgICAgICAgICAgICAgICAgICAgICAgICAgICAgICAgICAgICAgICAgICAgICAgICAgICAgICAgICANCi AgICAgICAgICAgICAgICAgICAgICAgICAgICAgICAgICAgICAgICAgICAgICAgICAgICAgICAgICAgIC AgICAgICAgICAgICAgICAgICAgICAgICAgICAgICAg ICAgICAgICANCiAgICAgICAgICAgICAgICAgICAgICAgICAgICAgICAgICAgICAgICAgICAgICAgICAg ICAgICAgICAgICAgICAgICAgICAgICAgICAgICAgICAgICAgICAgICAgICAgICAgICANCiAgICAgICAg ICAgICAgICAgICAgICAgICAgICAgICAgICAgICAgIC AgICAgICAgICAgICAgICAgICAgICAgICAgICAgICAgICAgICAgICAgICAgICAgICAgICAgICAgICAgIC ANCjw/tXYiZ1rzdJObltO0E0mzLd6KFk9EVO7xl9CrBKMcAZlbkxVyNngNEePjWGXdTrkYMpk2OJcbRK 9WtIZvA8TeG7FwFIxaLN1HFKXnSHSmuZRlYZWiVYVe ZqG6ETVbUSzhAG2PuXVcZCfuRHSgSKAuIjMiDWWwUUAmRRWcGJ6RQKBwH124ofDcUl6OKv6WSkTxUP1v fd2LUqFqONYbKkqDKvh7HYneWU1SlKGmiNVfShWyJUNRIsHzH1pad2InZwKbKSJBCOvmIG0Ss4BqaMVy DQo+Ml1FIW9jn9ZjDKmsEqWeXN8tnj3JINhEVuUrY7 XntPsjELHkx0yhIRYyXR7mrGNwPWV6BTNwRzLsI3NpNsMXkzM9xPKgVHHPWRZjlARnHtM9FzBeHxCkEQ d4CLxkQZ0tDBbdLA1UNFO1BNczQIPtVDCrT9iPYcGgULRjLiRncOfxCS0EJhMnX8YutfRocTAkIIAgAX INCj4+WVkjftEqNjtTBwKdMJFku5RcTIr3TQ3SOWWd PGmeZU0SRBPhgZ7uJRlwYO5QEeOnIWQqVSPYSvWsK62bvDCsAWo4V9EfFcDqWUFgYcmuUODdRQloIuHs ZXMgWyBdDQogID4+ID4+CNylDN9QZXmlcvNgJUGiKk7VWFXnAJFqWD8zJCUgUYPtP6Q9rTmvGNPKCbMu O3wbkpvtPU3aYKDnJ760eSqeegVzNHYjJQFsOp2QTO ToQZO3YWHfqQMhXoQlTYGLJDlqJQ7TwQPeHLV0oR2lCTvpUSVvNTVdV2rOIyWdlEluAP00sZlejyBbvE BdDQo+Im1FVA2sk9DaAZn5psFoBImyAQY3OArvWUZsUVBhDXMpXVU3BMN1CENJJdBsMZZvLDKuQKisWG AfDVKmgi1RMQLyKBIeZvM8MkAdUMSgIMOqOMslIUMo LHAuTAcbYVBaLNVhNR7OLcJwSBTgAVFwBHteIHJeQZNfrw6PTGArAOPdXzUsZmToNEQhSPYcDKfcHKNh VAIpLKXgSKQuVSDrNX6QTdNkBQFrRFJrWvYnDGVwDNKsbc0FEFEuOHQcYiPyOsJoJOVtTCRtCUdvFGKd XBM9NDngDLCcNDXpRW5KZaGaJWHsYSowXNPbSSVoOM Egps7ZRHZeOKSbVHI2UBHqBDVeWTJmCPdnPJPqOWS9IuQaHUFjZEYiIB9KRmClBMEfBHj2SzSeWWYjXZ Ysqx1ZGVEiVCVkGWU0VWDhWBZbKWSxBIppKXCpERFyOQm0QVXwKUGtNJ6YYsYeAKVfXAZ8PsWvMGDyJD Mvpt8TVRGlGGKlFFdyBOBsJUZlTYUnBAwmDIBkFYDy PID7IOVjWOBpQY7BRgIfKOZmQTIxQzvtBINkXIYoxj6KNZGlOSOmZfO6GTQzVVAnWIZvQBzmVVKuMDF4 FYGwKTNrIMNzXW9PMuTsUZPgRYBkRwBuKKEpJQEsji4LBWAyANQdXBBiSKVrHCPcUREeJRp8vpJlqUOo TTm3LZ2AP3FtkqTmBtTSRa5We701UFHoVSYlUm5MR3 zwBg3qQUJlPAXUTg9PHMa3JBItNtLdPHDlFRRbUHhbYjOkCeq1D5J0YXVpNQHhUfd+IXkmGRNvIRG2TD C1D5P8UPRnJnQbBDz9NVY2ZAN4CGRzFY4rDWNZJy1+EFgggSFtqGeoYFCMUyE5YNG8PLvuTRYCPu5Y ID Date Data Source [id number] 04/05/2020 03:38:48 AM [facility] Name Value Range Interpretation Code Description Data Chiara rce(s) Supporting Document(s) Creatinine [Mass/volume] in Serum or Plasma 0.59 mg/dL 0.50-0.90 [facility] Glomerular filtration rate/1.73 sq M pre dicted among non-blacks [Volume Rate/Area] in Serum or Plasma by Creatinine-based formula (MDRD) >6 0 [facility] Glomerular filtration rate/1.73 sq M pre dicted among blacks [Volume Rate/Area] in Serum or Plasma by Creatinine-based formula (MDRD) >60 [facility] ID Date Data Source [id number] 04/04/2020 07:56:00 PM EST [email or web address] Name Value Range Interpretation Code Description Data Chiara rce(s) Supporting Document(s) SARS-CoV-2 RNA 2019 nCoV Real-Time RT-PCR: NOT DETECTED [facility] This lab was ordered by [facility] and reported by [facility]. ID Date Data Source [id number] 04/05/2020 09:29:57 AM [facility] Name Value Range Interpretation Code Description Data Chiara rce(s) Supporting Document(s) Specimen source [Identifier] of Unspecified specimen [facility] SARS-CoV-2 RNA 2019 nCoV Real-Time RT-PCR: NOT DETECTED [facility] Assay Performed [facility] Patients first test for [facility] Patient employed in healthcare setting [facility] Patient has symptoms related to condition [facility] When did you start to experience these symptoms [Date and time] [Phen X] [facility] Patient was hospitalized because of this condition [facility] patient was admitted to ICU for condition [facility] Patient resides in a congregate care setting [facility] status [facility] ID Date Data Source [id number] 04/04/2020 06:45:07 PM [facility] Name Value Range Interpretation Code Description Data Chiara rce(s) Supporting Document(s) Progress Note [facility] GCTXQk4dSqHGCiRk21/QILubYNSvj1RqDZecKMt9CYdkICIcH2ElJXP5zK4oPGD9QYwEWrSbPpYgFaC6 lbm [file] ID Date Data Source [id number] 04/04/2020 02:53:19 PM [facility] Name Value Range Interpretation Code Description Data Chiara rce(s) Supporting Document(s) Sodium [Moles/volume] in Blood 130 mmol/L 136-145 L [facility] Potassium [Moles/volume] in Blood 3.2 mmol/L 3.4-5.1 L [facility] Chloride [Moles/volume] in Blood 91 mmol/L 98-107 L [facility] Carbon dioxide, total [Moles/volume] in Blood 29 mmol/L 22-29 [facility] Calcium.ionized [Moles/volume] in Blood 1.20 mmol/L 1.13-1.32 [facility] Glucose [Mass/volume] in Blood 83 mg/dL 70-140 [facility] Urea nitrogen [Mass/volume] in Blood 8 mg/dL 8-23 [facility] Creatinine [Mass/volume] in Blood 0.5 mg/dL 0.50-0.90 [facility] Hematocrit [Volume Fraction] of Blood 39 % 36-45 [facility] Hemoglobin [Mass/volume] in Blood by calculation 13.3 g/dL 11.5-15.5 [facility] ID Date Data Source [id number] 04/04/2020 07:52:20 AM [facility] Name Value Range Interpretation Code Description Data Chiara rce(s) Supporting Document(s) History and Physical [facility] [id number]/UTFfpROLea8WdDCmxQAo3QYpuLHVkQ0IiBBZ2bB6fJCQ8DIzZQeDeCqJdNxO9 lbm [file] flPrwaKg4XZXSJE3YGFo== ID Date Data Source [id number] 04/01/2020 12:24:39 PM [facility] Name Value Range Interpretation Code Description Data Chiara rce(s) Supporting Document(s) Progress Note [facility] TBESLl4aVlLVGeLt60/SJWtoJTCcp4WvCLomSWm9HSbyDNRiW5YyWUQ7yU9tDNS0HUoEHyDsXgKiKhQt lbm [file] ICAgICAgICAgICAgICAgICAgICAgICAgICAgICAgICAgICAgICAgICAgICAgICAgICAgICAgICAgICAg ICAgICAgICAgICAgICAgICAgICAgICAgICAgICAgIC AgICAgDQogICAgICAgICAgICAgICAgICAgICAgICAgICAgICAgICAgICAgICAgICAgICAgICAgICAgIC AgICAgICAgICAgICAgICAgICAgICAgICAgICAgICAgICAgICAgICAgICAgICAgDQogICAgICAgICAgIC AgICAgICAgICAgICAgICAgICAgICAgICAgICAgICAg ICAgICAgICAgICAgICAgICAgICAgICAgICAgICAgICAgICAgICAgICAgICAgICAgICAgICAgICAgDQog ICAgICAgICAgICAgICAgICAgICAgICAgICAgICAgICAgICAgICAgICAgICAgICAgICAgICAgICAgICAg ICAgICAgICAgICAgICAgICAgICAgICAgICAgICAgIC AgICAgICAgDQogICAgICAgICAgICAgICAgICAgICAgICAgICAgICAgICAgICAgICAgICAgICAgICAgIC AgICAgICAgICAgICAgICAgICAgICAgICAgICAgICAgICAgICAgICAgICAgICAgICAgDQogICAgICAgIC AgICAgICAgICAgICAgICAgICAgICAgICAgICAgICAg ICAgICAgICAgICAgICAgICAgICAgICAgICAgICAgICAgICAgICAgICAgICAgICAgICAgICAgICAgICAg DQogICAgICAgICAgICAgICAgICAgICAgICAgICAgICAgICAgICAgICAgICAgICAgICAgICAgICAgICAg ICAgICAgICAgICAgICAgICAgICAgICAgICAgICAgIC AgICAgICAgICAgDQogICAgICAgICAgICAgICAgICAgICAgICAgICAgICAgICAgICAgICAgICAgICAgIC AgICAgICAgICAgICAgICAgICAgICAgICAgICAgICAgICAgICAgICAgICAgICAgICAgICAgDQogICAgIC AgICAgICAgICAgICAgICAgICAgICAgICAgICAgICAg ICAgICAgICAgICAgICAgICAgICAgICAgICAgICAgICAgICAgICAgICAgICAgICAgICAgICAgICAgICAg ICAgDQogICAgICAgICAgICAgICAgICAgICAgICAgICAgICAgICAgICAgICAgICAgICAgICAgICAgICAg ICAgICAgICAgICAgICAgICAgICAgICAgICAgICAgIC QbCPPoVBGhIZFyJOLaQFz0D0baMDGaJBTrWL9nKTd1Vn7+PSeCMeAdZEL4zqZidU5TZT2pg8ElLApbXZ Uns9YeBVk7LE7MCOFeWYsuHF9DPHemdd3KUKYqMJXhtUAAa9tzWjCfFKW0OVPoWtluPK1WYFQvZ1btvk RsLFQgAPEMES4FVeNdC6MsbV84FVGKHt2+DQplbmRv LepBXjV1OMVhf0OgYYg1QH2GVUWsHljzt7XkZoSdSYOZQFkmJH2OSGI5KWBoPJDsOs2QQMPgH077aaGz OI6JXu2BSiVjVY1lim0ZUoRdQOIfMssAPum0OGfpDQ4HpVQiODwTdf5nynMjuwOVm2IebtLggNTCVSQa aCBSIENoYXBwZWxsLCBSTiBhdCAyLzIzLzIwMjEgID I9QGExKV8eLReyET8LVZX3GExgYXCnOSEtK2tTZaInLFJmSrJwzLveTG9LHhGpF7WpvsQlkXUfUVAzBX INCj4+DOzjvyDbEatAYgXdUMEkk6NyQTx9TP2VWPWfTVbmFR2VBSSspI8pQDgvEF8ZJbAmBaVuZPEXQs UsW86pnWOgDDi8Y3HjZyUvDIPgVgodLACoEOncPaTp ZXMgWyBdDQogID4+ID4+TMsjKR0GAYtqoxLdSHGzQh4QYILpAQTtLP8qKKLrWVIsK0O3sGmvFEEQZkJd P7ixgivrXV8pVHUgL281uRwhveTvYSO0YSMlMd9FBNEkEAK3LGPymVYdRJgbPMVVVCeuSJ0ArZOvZUA0 bD1kGYedWEFnJALkB0jNWzEbhRrgZP56iCsxnwOaxG BdDQo+Vv6EIB8ta6ObDTj7gcKeWOzoWFYbFPcsTYOeCMOtRZOcASD0JKH0VYVIZzIeNLBaSCYoFYbuIC TvGQJpvm9HTUFzTAXgCbI8HeQvZLBeMUAcAPyjVIAiBZN2XRw7XFYeMCKzIQ6FPmIzGHLoSNOtXLkhJP ZxRROqta3KPZKmQBTwKiUsFdNlQWMxYHSbZQiqPEVk ZLLrQzD7HBSmTPSfDU8IHdXeHUYwDUQsKoKwBEPcNBPdqe9QURUjNEZvHtE6FlUvSSQkNVGeTIchWPHl AKRaSqYdPLXaGCVmFK1HPeYhQEFfEEZ3YUBdDKOxOUXerk4POPVfRFHdDDgtGeOmIUZmGPInMGbvENSy LYQ9UBo8FDDmWSUaCE2XJhSsZNSuAKSdVHEhXARdQY Kozq3FOICqLSRuCfI3VNLpRBZzQSVjNYgbFGBsWXL0HNJ2BYWuNKRaVG6XWmWaTFOkEIihCFjxMCThKQ Kobo0OHQYwMPLzAuW1SLKoBLVpUWRxGOwqTFCfXWV1AjV1OPEwMSSuAZ4DCmTgQJJdNDpfPIUtPXVqQM Khae4OTOHnRFHyGKC9WAAfHBOyGIVxJXxnVKZuTGX0 TcC8RGJhCUJpNE2SGkBaPEeaDDGFNsb0ZMiiQ5d3NWQgPi3AI1Bza1NqEsPuNSEGNNojPD8kkjKsSJGd Kc6QA1mJNnzbOAw5ZuHaEeByXSU2KUDwYSRmKdXmRwH9KeNdZAFlYe1mNGJzGuD7UGBeOVJyCSr0A8E6 HgUeEsInMIgnWRA9DGBiAdPnRC8MAv7CEqZ0RUC9qQThNh3NUUr5RGjIAcTpNY6HXCx= ID Date Data Source [id number] 04/01/2020 12:04:00 PM EST [facility] Name Value Range Interpretation Code Description Data Chiara rce(s) Supporting Document(s) SARS-CoV-2 RNA 2019 nCoV Real-Time RT-PCR: NOT DETECTED [facility] This lab was ordered by [facility] and reported by [facility]. ID Date Data Source [id number] 04/02/2020 12:22:50 AM EST [facility] Name Value Range Interpretation Code Description Data Chiara rce(s) Supporting Document(s) Specimen source [Identifier] of Unspecified specimen [facility] SARS-CoV-2 RNA 2018 nCoV Real-Time RT-PCR: NOT DETECTED [facility] Assay Performed [facility] Patients first test for [facility] Patient employed in healthcare setting [facility] Patient has symptoms related to [facility] When did you start to experience these symptoms [Date and time] [Phen X] [facility] Patient was hospitalized because of this condition [facility] patient was admitted to ICU for [facility] Patient resides in a congregate care setting [facility] status [facility] ID Date Data Source [id number] 04/01/2020 11:48:21 AM EST [facility] Name Value Range Interpretation Code Description Data Chiara rce(s) Supporting Document(s) Progress Note [facility] IOCPVf5cMpKVFyXf17/UZYrhZILqh8SdOSknHSc6WKglXCMcM5WlZHA0mZ0lXXU7JXaBReYxSzHrNzPv lbm [file] ICAgICAgICAgICAgICAgICAgICAgICAgICAgICAgICAgICAgICAgICAgICAgICAgICAgICAgICAgICAg ICAgICAgICAgICAgICAgICAgDQogICAgICAgICAgIC AgICAgICAgICAgICAgICAgICAgICAgICAgICAgICAgICAgICAgICAgICAgICAgICAgICAgICAgICAgIC AgICAgICAgICAgICAgICAgICAgICAgICAgICAgDQogICAgICAgICAgICAgICAgICAgICAgICAgICAgIC AgICAgICAgICAgICAgICAgICAgICAgICAgICAgICAg ICAgICAgICAgICAgICAgICAgICAgICAgICAgICAgICAgICAgICAgDQogICAgICAgICAgICAgICAgICAg ICAgICAgICAgICAgICAgICAgICAgICAgICAgICAgICAgICAgICAgICAgICAgICAgICAgICAgICAgICAg ICAgICAgICAgICAgICAgICAgICAgDQogICAgICAgIC AgICAgICAgICAgICAgICAgICAgICAgICAgICAgICAgICAgICAgICAgICAgICAgICAgICAgICAgICAgIC AgICAgICAgICAgICAgICAgICAgICAgICAgICAgICAgDQogICAgICAgICAgICAgICAgICAgICAgICAgIC AgICAgICAgICAgICAgICAgICAgICAgICAgICAgICAg ICAgICAgICAgICAgICAgICAgICAgICAgICAgICAgICAgICAgICAgICAgDQogICAgICAgICAgICAgICAg ICAgICAgICAgICAgICAgICAgICAgICAgICAgICAgICAgICAgICAgICAgICAgICAgICAgICAgICAgICAg ICAgICAgICAgICAgICAgICAgICAgICAgDQogICAgIC AgICAgICAgICAgICAgICAgICAgICAgICAgICAgICAgICAgICAgICAgICAgICAgICAgICAgICAgICAgIC AgICAgICAgICAgICAgICAgICAgICAgICAgICAgICAgICAgDQogICAgICAgICAgICAgICAgICAgICAgIC AgICAgICAgICAgICAgICAgICAgICAgICAgICAgICAg ICAgICAgICAgICAgICAgICAgICAgICAgICAgICAgICAgICAgICAgICAgICAgDQogICAgICAgICAgICAg ICAgICAgICAgICAgICAgICAgICAgICAgICAgICAgICAgICAgICAgICAgICAgICAgICAgICAgICAgICAg BMQiANXdWQDpWFBdZZWgXQEzZHQhFJKjAZNvDTx6Q3 alJPZoBNWhVA4qZSi5Qu9+HDkYXiGcQHI0hkVaqS9DTT3ra0HhUHnrJUBwh6IhATq0TG8GKCDhYAbfXL 8IRAohqy1VMWEkCZQvqEJNz8ftLpVjUOA8FYDvRiuoOC3MARVnJ1fgxjSuOTGpPIRBTZ4FDiXaB9JpiD 24HDSRMy4+DNegehMfYmfCXrW9KIUmo4ApORm1LL3E PYStBpdgp5LqFrYeXDVAEFpeZS8SBJR4DIExPZHvYt1CWAPyB837mnHxNK2XUh5MJoKdLQ1pln6RHrUy BKMkXaqORlb1TIsnID5JpNEdRWwTyq3yscKrmbZYr5WtvyTpcOOKtvvneeZNHMufbnptvChiNTCfORGj Ys3bNp6bASNxEPDzVlTgAVDBZG3ICJOdXEKrjIQbAI GdAHIRLY4FLNqvNAJ0NZPmolUuqBUlUKmfUD5LYGKihjVcNHqqFTKULGf+Nv4IUB7tj9PnFZqqJFZuKJ 7ukx0UPWdYIfThT7Y7cBYqT0D9JFzmSr5CEYKfGGYkACyrHWQQXZpsJT4BOZ2njzZ1AP6GdLWuAZUhEO DkaZNlCSi8Y05zkHRdQUkwLM5CCRB+Jeremy+Nt9HEFJa GHFoTIMwJsQsSCRFRwHuS8YwA5YAg4VwF4DsCT44nGpesjDzGOsuAX7YZZ9dMKAxUASDVS4HlAWjyT7i otReIVGuDIFBWgMjD51stUDpAKWsQGG0ONYmCa5SBFEdE2AvvhHljSuoseRpOFRpYGUOGX6IFQgnibEe lWQiwIqkAI35aHfiGZ9MEe9YFbUjNC2mvb5FiYOcBk 2OEDXlAm9XHGYvSMCqCLOyTXM3KDVrTsMwTGqwXMNcSXWqEZX0KYShEBCuIO3YPhWmCAJcSEd8YvMtAH TjKEIiba5GTCKiAWAdBYP9IHJmVWNxPLIfTEvcUZGyWIJkBKA5OGSpXQApAF6MPlDmUTJwHFCcBBdeZD DkMDYyhk6ZZOErBVJxIpTvAPXpQOZmZKTgKOvfYDXl KMM0GBHlZKNsZKRtHH1MPwItSGZtHVH3YDWvDJFfLJHcju9RGEHqLDFnVCkgIgRcQSTiTSZeZPbaYVCq EQL0Pvj9CGYbXYTsUX5WQrSyLWVpVXB2WCMzLWNeJKRnze6PGOJoEGZjJsP6CaCvZMBhHFYnMTbhOEWz RHG7PHS3OAHfUFMxOX7XVoOuOHKvIZn2UWWkAAVlRS Rjoa8MWNBxDACkFLA3KqUsGWFuLQJjCQalBRRkULL5VdEqUVAgKYUgZD6KIeChSMVhSTh8NDfyYOKnJV Gbrj5TNQZgVMJlUFn6BXQqONZyDZYsXMhvNHQmUBFcNrk3MHQtOMWuVG0ENfAhSLHaKnIjRKwaDCWvYG Pvdi4NQOIuUIXeXJLgOkOhSYDfAXDkKMb0ldFmjEAv CMr8HZ8NA7KfomKgEpTPOm4Wi936VGIwSAGlHe5TU3leIf8kYIEoOKAYXj8LTBi5FRLdHmXySChkXJca SNI6RpYnKeTvFVuqIIb2DPV1XgO+POxbZPPdABLhVJMrNZL2MkWrNhAyEpEaF8UrJCKfKCehXj0eXWSV Cj4+KNrioCUzgKkpXONZDuVrFmVvRWxqEXPNXd0M ID Date Data Source [id number] 04/01/2020 11:48:16 AM EST [facility] Name Value Range Interpretation Code Description Data Chiara rce(s) Supporting Document(s) Progress Note [facility] PPDEQl0fYxRABgXs34/DCHbiPQEou9DpBYjhWPz5YYrjNTVlL0LlWQE1rL0jSTX4YZyWTlQyDrZlLsBo lbm [file] n3MkHyQhZ3PVZaCaA4Adv4Gjg3StM+WP8pTCi+Gw2Ek3JxxuI8ejVbLVzkXMM4Xl6HHGNNJ8VMRz== Procedure Social History Code Duration Value Status Description Data Source(s ) Smoking 12/04/2020 05:43:50 AM EDT Smokes tobacco daily (findi ng) completed Smokes tobacco daily (finding) CASSI (Kenneth Long MD [facility]) Smoking 11/27/2020 12:00:00 AM EDT Current Smoker completed Curre nt Smoker eCW1 ([facility]) Smoking 09/11/2020 12:00:00 AM EDT Current Smoker completed Curre nt Smoker eCW1 ([facility]) Smoking 09/11/2020 12:00:00 AM EDT Current Smoker completed Curre nt Smoker eCW1 ([facility]) Smoking 09/11/2020 12:00:00 AM EDT Current Smoker completed Curre nt Smoker eCW1 ([facility]) Smoking 09/11/2020 12:00:00 AM EDT Current Smoker completed Curre nt Smoker eCW1 ([facility]) Smoking 07/01/2020 12:00:00 AM EDT Current Smoker completed Curre nt Smoker eCW1 ([facility]) Smoking 07/01/2020 12:00:00 AM EDT Current Smoker completed Curre nt Smoker eCW1 ([facility]) Smoking 06/12/2020 12:00:00 AM EDT Current Smoker completed Curre nt Smoker eCW1 ([facility]) Smoking 05/01/2020 12:00:00 AM EDT Current Smoker completed Curre nt Smoker eCW1 ([facility]) Smoking 05/01/2020 12:00:00 AM EDT Current Smoker completed Curre nt Smoker eCW1 ([facility]) Smoking 05/01/2020 12:00:00 AM EDT Current Smoker completed Curre nt Smoker eCW1 ([facility]) Smoking 05/01/2020 12:00:00 AM EDT Current Smoker completed Curre nt Smoker eCW1 ([facility]) Smoking 05/01/2020 12:00:00 AM EDT Current Smoker completed Curre nt Smoker eCW1 ([facility]) Smoking 05/01/2020 12:00:00 AM EDT Current Smoker completed Curre nt Smoker eCW1 ([facility]) Alcohol intake 04/18/2020 12:00:00 AM EST Current drinker of al cohol (finding) completed Current drinker of alcohol (finding) [facility] Tobacco use and exposure 04/18/2020 12:00:00 AM EST Never used co mpleted Never used [facility] Cigarettes smoked current (pack per day) - Reported 04/19/19 12:00:00 AM EST UNK completed [facility] Smoking 04/18/2020 12:00:00 AM EST Current every day smoker co mpleted Current every day smoker [facility] Alcohol intake 04/04/2020 12:00:00 AM EST Current drinker of al cohol (finding) completed Current drinker of alcohol (finding) [facility] Alcohol intake 04/01/2020 12:00:00 AM EST Ex-drinker (finding) comp leted Ex- drinker (finding) [facility] Smoking 03/20/2020 12:00:00 AM EST Current Smoker completed Curre nt Smoker eCW1 ([facility]) Smoking 03/20/2020 12:00:00 AM EST Current Smoker completed Curre nt Smoker eCW1 ([facility]) Smoking 03/20/2020 12:00:00 AM EST Current Smoker completed Curre nt Smoker eCW1 ([facility]) Smoking 03/20/2020 12:00:00 AM EST Current Smoker completed Curre nt Smoker eCW1 ([facility]) Smoking 03/04/2020 12:00:00 AM EST Current Smoker completed Curre nt Smoker eCW1 ([facility]) Smoking 11/15/2019 12:00:00 AM EDT Current Smoker completed Curre nt Smoker eCW1 ([facility]) Smoking 11/15/2019 12:00:00 AM EDT Current Smoker completed Curre nt Smoker eCW1 ([facility]) Smoking 11/15/2019 12:00:00 AM EDT Current Smoker completed Curre nt Smoker eCW1 ([facility]) Smoking 11/15/2019 12:00:00 AM EDT Current Smoker completed Curre nt Smoker eCW1 ([facility]) Smoking 11/15/2019 12:00:00 AM EDT Current Smoker completed Curre nt Smoker eCW1 ([facility]) Vital Signs ID Date Data Source UNK Name Value Range Interpretation Code Description Data Source(s) Body weight 118.8 [lb_av] 118.8 [lb_av] eCW1 ([facility]) Body weight 53.89 kg 53.89 kg eCW1 ([facility]) Body height 64.5 [in_i] 64.5 [in_i] eCW1 ([facility]) Body mass index (BMI) [Ratio] 20.07 kg/m2 20.07 kg/m2 eCW1 ([facility]) Heart rate 72 /min 72 /min eCW1 ([facility]) Respiratory rate 17 /min 17 /min eCW1 ([facility]) Body temperature 98.0 [degF] 98.0 [degF] eCW1 ( [facility]) Systolic blood pressure 161 mm[Hg] 161 mm[Hg] e CW1 ([facility]) Diastolic blood pressure 75 mm[Hg] 75 mm[Hg] eCW1 ([facility]) Body weight 112.00 [lb_av] 112.00 [lb_av] MEDELVIS T ([facility]) Body height 62 [in_i] 62 [in_i] MEDENT ([facility]) 5'2" Body mass index (BMI) [Ratio] 20.5 kg/m2 20.5 k g/m2 MEDENT ([facility]) Heart rate 78 /min 78 /min MEDENT ([facility]) Body weight 115.2 [lb_av] 115.2 [lb_av] eCW1 ([facility]) Body height 64.5 [in_i] 64.5 [in_i] eCW1 ([facility]) Body mass index (BMI) [Ratio] 19.47 kg/m2 19.47 kg/m2 eCW1 ([facility]) Heart rate 79 /min 79 /min eCW1 ([facility]) Respiratory rate 18 /min 18 /min eCW1 ([facility]) Body temperature 97.9 [degF] 97.9 [degF] eCW1 ( [facility]) Systolic blood pressure 157 mm[Hg] 157 mm[Hg] e CW1 ([facility]) Diastolic blood pressure 69 mm[Hg] 69 mm[Hg] eCW1 ([facility]) Body weight 111.6 [lb_av] 111.6 [lb_av] eCW1 ([facility]) Body height 64.5 [in_i] 64.5 [in_i] eCW1 ([facility]) Body mass index (BMI) [Ratio] 18.86 kg/m2 18.86 kg/m2 eCW1 ([facility]) Heart rate 71 /min 71 /min eCW1 ([facility]) Respiratory rate 18 /min 18 /min eCW1 ([facility]) Body temperature 97.4 [degF] 97.4 [degF] eCW1 ( [facility]) Systolic blood pressure 155 mm[Hg] 155 mm[Hg] e CW1 ([facility]) Diastolic blood pressure 70 mm[Hg] 70 mm[Hg] eCW1 ([facility]) Body weight 108.8 [lb_av] 108.8 [lb_av] eCW1 ([facility]) Body height 64.5 [in_i] 64.5 [in_i] eCW1 ([facility]) Body mass index (BMI) [Ratio] 18.39 kg/m2 18.39 kg/m2 eCW1 ([facility]) Heart rate 73 /min 73 /min eCW1 ([facility]) Respiratory rate 16 /min 16 /min eCW1 ([facility]) Body temperature 97.4 [degF] 97.4 [degF] eCW1 ( [facility]) Systolic blood pressure 138 mm[Hg] 138 mm[Hg] e CW1 ([facility]) Diastolic blood pressure 65 mm[Hg] 65 mm[Hg] eCW1 ([facility]) Body weight 107.00 [lb_av] 107.00 [lb_av] KIKO Jean ([facility]) Body height 62 [in_i] 62 [in_i] PRISCILA ([facility]) 5'2" Body mass index (BMI) [Ratio] 19.6 kg/m2 19.6 k g/m2 MEDENT ([facility]) Systolic blood pressure--sitting 138 mm[Hg] 138 mm[Hg] MEDENT ([facility]) Ra, small cuff (pediatric) Diastolic blood pressure--sitting 70 mm[Hg] 70 mm[Hg] MEDENT ([facility]) Ra, small cuff (pediatric) Systolic blood pressure--sitting 122 mm[Hg] 122 mm[Hg] MEDENT ([facility]) Ra, small cuff Diastolic blood pressure--sitting 70 mm[Hg] 70 mm[Hg] MEDENT ([facility]) Ra, small cuff Body weight 111.00 [lb_av] 111.00 [lb_av] MEDEN T ([facility]) Body height 62 [in_i] 62 [in_i] MEDENT ([facility]) 5'2" Body mass index (BMI) [Ratio] 20.3 kg/m2 20.3 k g/m2 MEDENT ([facility]) Heart rate 81 /min 81 /min MEDENT ([facility]) Body weight 108.2 [lb_av] 108.2 [lb_av] eCW1 ([facility]) Body height 64.5 [in_i] 64.5 [in_i] eCW1 ([facility]) Diastolic blood pressure 58 mm[Hg] 58 mm[Hg] eCW1 ([facility]) Body mass index (BMI) [Ratio] 18.28 kg/m2 18.28 kg/m2 eCW1 ([facility]) Heart rate 81 /min 81 /min eCW1 ([facility]) Respiratory rate 18 /min 18 /min eCW1 ([facility]) Body temperature 97.6 [degF] 97.6 [degF] eCW1 ( [facility]) Systolic blood pressure 117 mm[Hg] 117 mm[Hg] e CW1 ([facility]) Body weight 116 [lb_av] 116 [lb_av] eCW1 ([facility]) Body height 64.5 [in_i] 64.5 [in_i] eCW1 ([facility]) Body mass index (BMI) [Ratio] 19.60 kg/m2 19.60 kg/m2 eCW1 ([facility]) Systolic blood pressure 94 mm[Hg] 94 mm[Hg] e CW1 ([facility]) Diastolic blood pressure 54 mm[Hg] 54 mm[Hg] eCW1 ([facility]) Body weight 110.4 [lb_av] 110.4 [lb_av] eCW1 ([facility]) Body height 64.5 [in_i] 64.5 [in_i] eCW1 ([facility]) Body mass index (BMI) [Ratio] 18.66 kg/m2 18.66 kg/m2 eCW1 ([facility]) Systolic blood pressure 92 mm[Hg] 92 mm[Hg] e CW1 ([facility]) Diastolic blood pressure 56 mm[Hg] 56 mm[Hg] eCW1 ([facility]) ID Date Data Source [id number] 04/14/2020 08:31:13 AM [facility] Name Value Range Interpretation Code Description Data Source(s) WEIGHT RECORDED 114.8 lb 114.8 lb [facility] WEIGHT RECORDED 105 lb 105 lb [facility] Body height Measured 62 in 62 in [facility] WEIGHT RECORDED 108 lb 108 lb [facility] Body height Measured 62 in 62 in [facility] ID Date Data Source [id number] 04/08/2020 02:44:17 PM [facility] Name Value Range Interpretation Code Description Data Source(s) WEIGHT RECORDED 116 lb 116 lb [facility] Body height Measured 62 in 62 in [facility] Patient Treatment Plan of Care Planned Activity Planned Date Details Description Data Source (s) Ketoconazole 20 MG/ML Topical Cream 11/28/2020 12:00:00 AM EDT eCW1 ([facility]) Fluconazole 150 MG 11/28/2020 12:00:00 AM EDT eCW1 ([facility]) Amlodipine 10 MG Oral Tablet 09/02/2020 12:00:00 AM EDT eCW1 ([facility]) atorvastatin 20 MG Oral Tablet 09/02/2020 12:00:00 AM EDT eCW1 ([facility]) Albuterol Sulfate HFA 108 (90 Base) MCG/ACT 07/01/2020 12:00:00 AM EDT eCW1 ([facility]) Digoxin 0.125 MG Oral Tablet 06/05/2020 12:00:00 AM EDT eCW1 ([facility]) 24 HR Bupropion Hydrochloride 150 MG Extended Release Oral Tablet [Wellbutrin] 05/01/2020 12:00:00 AM EDT eCW1 ([facility]) 24 HR Bupropion Hydrochloride 150 MG Extended Release Oral Tablet [Wellbutrin] 05/01/2020 12:00:00 AM EDT eCW1 ([facility]) 24 HR Bupropion Hydrochloride 150 MG Extended Release Oral Tablet [Wellbutrin] 05/01/2020 12:00:00 AM EDT eCW1 ([facility]) 24 HR Bupropion Hydrochloride 150 MG Extended Release Oral Tablet [Wellbutrin] 05/01/2020 12:00:00 AM EDT eCW1 ([facility]) 24 HR Bupropion Hydrochloride 150 MG Extended Release Oral Tablet [Wellbutrin] 05/01/2020 12:00:00 AM EDT eCW1 ([facility]) Potassium Chloride 10 MEQ Extended Release Oral Tablet 04/28/2020 12:00:00 AM EDT eCW1 ([facility]) torsemide 20 MG Oral Tablet 04/28/2020 12:00:00 AM EDT eCW1 ([facility]) Albuterol 0.833 MG/ML / Ipratropium [place] 0.167 MG/M L Inhalant Solution 04/28/2020 12:00:00 AM EDT eCW1 ([facility]) Potassium Chloride 10 MEQ Extended Release Oral Tablet 04/28/2020 12:00:00 AM EDT eCW1 ([facility]) torsemide 20 MG Oral Tablet 04/28/2020 12:00:00 AM EDT eCW1 ([facility]) Ascorbic Acid 113 MG / Beta Carotene 716 0 MG / cuprous oxide 0.4 MG / dl-alpha tocopheryl acetate 100 UNT / Zinc Oxide 17.4 MG Oral Tablet [PreserVision] 04/28/2020 12:00:00 AM EDT eCW1 ([facility]) Albuterol 0.833 MG/ML / Ipratropium [place] 0.167 MG/M L Inhalant Solution 04/28/2020 12:00:00 AM EDT eC ([facility]) Oxycodone Hydrochloride 5 MG Oral Tablet 04/05/2020 12:00:00 AM [facility] Docusate Sodium 100 MG Oral Capsule 04/05/2020 12:00:00 AM [facility] Acetaminophen 325 MG Oral Tablet 04/05/2020 12:00:00 AM [facility] POLYETHYLENE GLYCOL 3350 142 MG/ML Oral Solution 04/04/2020 07:08:0 1 PM [facility] fentaNYL (SUBLIMAZE) (PF) injection 25 mcg 04/04/2020 07:08:00 PM E [facility] Bisacodyl 10 MG Rectal Suppository 04/04/2020 07:08:00 PM [facility] Magnesium Hydroxide 80 MG/ML Oral Suspension 04/04/2020 07:08:00 PM [facility] ondansetron (ZOFRAN) injection 4 mg 04/04/2020 07:08:00 PM [facility] sodium chloride (preservative free) 0.9 % flush 3 mL 021 01:34:10 PM [facility] Acetaminophen 325 MG / Hydrocodone Bitartrate 5 MG Ora l Tablet 03/25/2020 12:00:00 AM [facility] Omeprazole 20 MG Delayed Release Oral Capsule 03/21/2020 12:00:00 A M [facility] Omeprazole 20 MG Delayed Release Oral Capsule 03/20/2020 12:00:00 A M EST [facility] ([facility]) Omeprazole 20 MG Delayed Release Oral Capsule 03/20/2020 12:00:00 A M EST [facility] ([facility]) Omeprazole 20 MG Delayed Release Oral Capsule 03/20/2020 12:00:00 A M EST eCW1 ([facility]) Omeprazole 20 MG Delayed Release Oral Capsule 03/20/2020 12:00:00 A M EST eCW1 ([facility]) Omeprazole 20 MG Delayed Release Oral Capsule 03/20/2020 12:00:00 A M EST eCW1 ([facility]) Fluconazole 200 MG Oral Tablet 03/04/2020 12:00:00 AM EST eCW1 ([facility]) Tacrolimus 0.001 MG/MG Topical Ointment 01/01/2020 12:00:00 AM EST eCW1 ([facility]) Tacrolimus 0.001 MG/MG Topical Ointment 01/01/2020 12:00:00 AM EST eCW1 ([facility]) Tacrolimus 0.001 MG/MG Topical Ointment 01/01/2020 12:00:00 AM EST eCW1 ([facility]) Tacrolimus 0.001 MG/MG Topical Ointment 01/01/2020 12:00:00 AM EST eCW1 ([facility]) levocetirizine dihydrochloride 5 MG Oral Tablet 11/15/2019 12:00:00 AM EDT eCW1 ([facility]) Hydroxyzine Pamoate 25 MG Oral Capsule 11/15/2019 12:00:00 AM EDT eCW1 ([facility]) Triamcinolone Acetonide 0.43464 MG/MG Topical Ointment 11/15/2019 12:00:00 AM EDT eCW1 ([facility]) levocetirizine dihydrochloride 5 MG Oral Tablet 11/15/2019 12:00:00 AM EDT eCW1 ([facility]) Hydroxyzine Pamoate 25 MG Oral Capsule 11/15/2019 12:00:00 AM EDT eCW1 ([facility]) Triamcinolone Acetonide 0.24276 MG/MG Topical Ointment 11/15/2019 12:00:00 AM EDT eCW1 ([facility]) levocetirizine dihydrochloride 5 MG Oral Tablet 11/15/2019 12:00:00 AM EDT eCW1 ([facility]) Hydroxyzine Pamoate 25 MG Oral Capsule 11/15/2019 12:00:00 AM EDT eCW1 ([facility]) Triamcinolone Acetonide 0.20454 MG/MG Topical Ointment 11/15/2019 12:00:00 AM EDT eCW1 ([facility]) levocetirizine dihydrochloride 5 MG Oral Tablet 11/15/2019 12:00:00 AM EDT eCW1 ([facility]) Triamcinolone Acetonide 0.37513 MG/MG Topical Ointment 11/15/2019 12:00:00 AM EDT eCW1 ([facility]) Hydroxyzine Pamoate 25 MG Oral Capsule 11/15/2019 12:00:00 AM EDT eCW1 ([facility]) levocetirizine dihydrochloride 5 MG Oral Tablet 11/15/2019 12:00:00 AM EDT eCW1 ([facility]) Triamcinolone Acetonide 0.94755 MG/MG Topical Ointment 11/15/2019 12:00:00 AM EDT eCW1 ([facility]) Hydroxyzine Pamoate 25 MG Oral Capsule 11/15/2019 12:00:00 AM EDT eCW1 ([facility]) prednisolone acetate 10 MG/ML Ophthalmic Suspension 08/01/19 12:00:00 AM [facility] Ketorolac Tromethamine 10 MG Oral Tablet 08/01/2019 12:00:00 AM [facility]
[2020-12-04 17:35] LABS: BASO # 0.1 10^3/uL (0.0-0.2); BASO % 1.1 % (0.0-1.0); EOS # 0.1 10^3/uL (0.0-0.5); EOS % 0.5 % (0.0-3.0); HEMATOCRIT 43.2 % (36.0-47.0); HEMOGLOBIN 14.2 g/dl (12.0-15.5); LYMPH # 1.4 10^3/uL (1.5-5.0); LYMPH % 13.7 % (24.0-44.0); MEAN CORPUSCULAR HEMOGLOBIN 28.7 pg (27.0-33.0); MEAN CORPUSCULAR HGB CONC 32.9 g/dl (32.0-36.5); MEAN CORPUSCULAR VOLUME 87.4 fl (80.0-96.0); MONO # 1.1 10^3/uL (0.0-0.8); MONO % 10.9 % (2.0-8.0); NEUTROPHILS # 7.3 10^3/uL (1.5-8.5); NEUTROPHILS % 72.6 % (36.0-66.0); PLATELET COUNT, AUTOMATED 518 10^3/uL (150-450); RED BLOOD COUNT 4.94 10^6/uL (4.00-5.40); WHITE BLOOD COUNT 10.1 10^3/uL (4.0-10.0)
[2020-12-04 17:59] LABS: ALT/SGPT 32 U/L (12-78); BILIRUBIN,TOTAL 0.4 MG/DL (0.2-1.0); BLOOD UREA NITROGEN 21 MG/DL (7-18); CARBON DIOXIDE LEVEL 17 MEQ/L (21-32); CHLORIDE LEVEL 94 MEQ/L (98-107); GLOMERULAR FILTRATION RATE > 60.0 (>39); GLUCOSE, FASTING 97 MG/DL (70-100); POTASSIUM SERUM 5.1 MEQ/L (3.5-5.1); SODIUM LEVEL 124 MEQ/L (136-145); TOTAL PROTEIN 6.9 GM/DL (6.4-8.2)
[2020-12-04] MEDS ORDERED: NS 1,000 ML IV ONE (18:10)
[2020-12-04 18:27] LABS: ETHYL ALCOHOL (ETHANOL) < 0.003 % (0.000-0.010)
[2020-12-04] MEDS ORDERED: ONDANSETRON 4MG/2ML VIAL IV PRN (18:45)
[2020-12-04] MEDS ORDERED: LORazepam 2 MG TAB PO PRN (18:45)
[2020-12-04] MEDS ORDERED: NS 1,000 ML IV SCH (18:45)
--- NOTE | 2020-12-04 18:53 | HPEPDOC ---
[facility] Medical History & Physical Date of Admission Dec 04, 2020 Date of Service: Dec 04, 2020 Attending Physician: JOANA MCKINLEY MD History and Physical CHIEF COMPLAINT: [70 y/o female sent from pcp office for evaluation of n/v/d x5 days] HISTORY OF PRESENT ILLNESS: [This is a 70 y/o female with a pmh of chf, cad, hld, htn, a-fib on eliquis, copd, gerd, hypothyroidism, daily alcohol use who presents to our ED on 12/04 from her pcp office for further evaluation of n/v/d persistent for approx 5 days. Patient tells me that symptoms onset suddenly and has been having approx 5 loose, watery bowel movements per day. Patient denies blood or dark stools. Patient states that she has had poor oral intake due to her symptom of nausea and tells me that whenever she does it, she often will vomit it up or have a bout of diarrhea soon after. Patient tells me that she is not experiencing any eder abdominal pain, rather just some cramps when she is having bowel movements. Patient, at the time of my exam, denies any sick contacts, recent travel, fevers, chills, chest pain, sob, cough, wheezing, dysuria, pedal edema, syncope. Patient tells me her last drink was about 2 days ago.] PAST MEDICAL HISTORY: 1. [See HPI PAST SURGICAL HISTORY: 1. [B/l cataract removal]. 2. [Hysterectomy]. 3. [Unspec. left elbow repair 4. Birch procedure 5. Tonsillectomy]. SOCIAL HISTORY: Tobacco use:[Daily ppd smoker] ETOH: [Approx 4 glasses of wine per day. Tells me she hasnt drank in past 2 days] Illicit drug use: [Denies] FAMILY HISTORY: Reviewed - none pertinent ALLERGIES: Please see below. REVIEW OF SYSTEMS: CONSTITUTIONAL: [Denies fevers, chills]. HEENT: [Denies uri sx]. CARDIOVASCULAR: [Denies chest pain, palpitations]. RESPIRATORY: [Denies sob, wheezing]. GASTROINTESTINAL: [See HPI]. GENITOURINARY: [Denies dysuria]. SKIN: [Denies rash]. MUSCULOSKELETAL: [Denies acute joint/back pain]. NEUROLOGICAL: [Denies syncope, tremor]. ENDOCRINE: [Denies hx of DM]. HEMATOLOGIC/LYMPHATIC: [Denies hx of vte]. HOME MEDICATIONS: Please see below. PHYSICAL EXAMINATION: VITAL SIGNS: Please see below. GENERAL APPEARANCE: [This is a 70 y/o female who is alert and oriented to all questioning. She does not appear to be in any acute distress]. HEENT: [No mass or lesion. EOMI. No scleral icterus. Nares patent. Oral mucosa dry]. CARDIOVASCULAR: [Regular rate, irregular rhythm. No murmurs, rubs, gallops]. LUNGS: [Good air flow b/l. Crackles appreciated at left lung base]. ABDOMEN: [Soft, mildly tender to b/l lower quadrants]. MUSCULOSKELETAL: [No joint deformity noted]. EXTREMITIES: [No pedal edema appreciated. No overlying skin changes. Pulses intact]. NEUROLOGICAL: [Speech clear. A+Ox3. No focal deficit]. PSYCHIATRIC: [Mood and affect appropriate]. LABORATORY DATA: See below. IMAGING: [CXR: FINDINGS: The technique utilized in obtaining the radiograph has magnified the cardiac silhouette and accentuated the interstitial markings. The superior mediastinal structures are midline. The cardiac silhouette is unremarkable in size, shape, and position. The diaphragmatic surfaces of the lungs are regular, and the costophrenic angles are clear. The pulmonary domingo are clear. The imaged osseous structures are intact. IMPRESSION: There is no acute cardiopulmonary disease.] MICROBIOLOGY: Please see below. ASSESSMENT: [This is a 70 y/o female with a pmh of chf, cad, hld, htn, a-fib on eliquis, copd, gerd, hypothyroidism, daily alcohol use who presents to our ED on 12/04 from her pcp office for further evaluation of n/v/d persistent for approx 5 days. Patient found to have significant hyponatremia of 124 upon workup in the ED]. . PLAN: 1. [Hyponatremia - Most likely 2/2 volume depletion i/s/o poor oral intake, diarrhea, vomiting. Pt has some degree of mild hyponatremia upon chart review 2/2 to her alcoholism - Patient given 1L ns bolus in the ED - Will begin maintenance ivf with ns - will trend bmp q6h to avoid rapid repletion - admit to med surg for tx 2. N/V/D - unclear etiology at this time - will check lipase to r/o any pancreatitis - gi panel ordered to r/o infectious etiology - tsh/t4 ordered to check thyroid function as cause of diarrhea as pt is on synthroid - zofran as needed for sx relief 3. Alcoholism - Pt tells me that she drinks 4 glasses of wine daily with her last drink being 2 days ago, this puts her near timeframe we would expect to see withdrawal sx - will place pt on ciwa protocol and monitor 4. CHF - pt with some crackles on pulmonary exam, however does not appear volume overloaded - rather dry - will check bnp, cxr 5. Asymptomatic bacteruria - pt with 3+ leuk est and 3+ bacteria on ua, however complains of no uti symp toms. will withhold abx at this time 6. COPD - not in acute exacerbation - continue at home inhalers 7. A-fib - pt rate controlled in the ed - continue digoxin, eliquis 8. HTN - continue amlodipine 9. GERD - continue omeprazole 10. HLD - continue atorvastatin 11. Hypothyroidism - continue synthroid 12. Depression/anxiety - continue wellbutrin 13. Nicotine use - patch ordered DVT prophylaxis - pt on eliquis]. Vital Signs Vital Signs Date Time Temp Pulse Resp B/P (MAP) Pulse Ox O2 Delivery O2 Flow Rate FiO2 12/04/20 17:01 89 16 153/67 (95) 98 Room Air 12/04/20 15:52 95.5 Laboratory Data Labs 24H Laboratory Tests 2 12/04/20 17:25: Immature Granulocyte % (Auto) 1.2, Neutrophils (%) (Auto) 72.6H, Lymphocytes (%) (Auto) 13.7L, Monocytes (%) (Auto) 10.9H, Eosinophils (%) (Auto) 0.5, Basophils (%) (Auto) 1.1H, Neutrophils # (Auto) 7.3, Lymphocytes # (Auto) 1.4L, Monocytes # (Auto) 1.1H, Eosinophils # (Auto) 0.1, Basophils # (Auto) 0.1, Nucleated Red Blood Cells % (auto) 0.0, Anion Gap 13, Glomerular Filtration Rate > 60.0, Calcium Level 9.0, Total Bilirubin 0.4, Aspartate Amino Transf (AST/SGOT) 59H, Alanine Aminotransferase (ALT/SGPT) 32, Alkaline Phosphatase 244H, Total Protein 6.9, Albumin 3.0L, Albumin/Globulin Ratio 0.8L, Ethyl Alcohol Level < 0.003 12/04/20 18:17: CBC/BMP Laboratory Tests 12/04/20 17:25 Home Medications Scheduled Acetaminophen (Acetaminophen) 500 Mg Tablet, 1,000 MG PO QHS Amlodipine Besylate (Amlodipine Besylate) 10 Mg Tablet, 10 MG PO DAILY Apixaban (Eliquis) 5 Mg Tablet, 5 MG PO BID Atorvastatin Calcium (Atorvastatin Calcium) 20 Mg Tablet, 20 MG PO DAILY Bupropion Hcl (Bupropion Xl) 150 Mg Tab.er.24h, 150 MG PO DAILY Digoxin (Digoxin) 125 Mcg Tablet, 125 MCG PO DAILY Ketoconazole (Ketoconazole) 15 Gm Cream..g., 1 APLCT TOP DAILY APPLY TO PERINEAL AREA Levothyroxine Sodium (Synthroid) 50 Mcg Tablet, 50 MCG PO QAM Multivitamins (Thera M Plus Tablet) 1 Each Tablet, 1 TAB PO DAILY Omeprazole (Omeprazole) 20 Mg Capsule.dr, 20 MG PO DAILY Potassium Chloride (Potassium Chloride) 20 Meq Tab.er.prt, 20 MEQ PO DAILY Scheduled PRN Albuterol Sulfate (Albuterol Sulfate Hfa) 8.5 Gm Hfa.aer.ad, 1 PUFF PO Q4H PRN for SHORTNESS OF BREATH Ipratropium/Albuterol Sulfate (Iprat-Albut 0.5-3(2.5) mg/3 ml) 3 Ml Ampul.neb, 1 VIAL NEB Q6H PRN for SOB/WHEEZING Allergies Coded Allergies: prochlorperazine (Verified Adverse Reaction, Severe, RIGIDITY OF JAW, 08/29) cephalexin (Verified Adverse Reaction, Mild, N/V, 08/29/20) codeine (Verified Adverse Reaction, Mild, N/V, 08/29/20) lisinopril (Verified Adverse Reaction, Mild, INCREASES POTASSIUM LEVEL, 08/29/20) meperidine (Verified Adverse Reaction, Mild, INCREASED K, 08/29/20) A-FIB/CHADSVASC A-FIB History Current/History of A-Fib/PAF?: Yes Current PO Anticoag Therapy: Yes CHOCO STRONG Dec 04, 2020 18:53
[2020-12-04] MEDS ORDERED: KETO2CR TOP (19:07)
[2020-12-04] MEDS ORDERED: VITMTA PO (19:08)
[2020-12-04] MEDS ORDERED: HOME MED LIST COMPLETE! XX SCH (19:10)
[2020-12-04 19:16] LABS: RSV AMPLIFICATION NEGATIVE (NEGATIVE)
--- NOTE | 2020-12-04 19:47 | REP ---
INDICATION: chf. COMPARISON: 11/09/2020 also portable TECHNIQUE: Portable FINDINGS: The technique utilized in obtaining the radiograph has magnified the cardiac silhouette and accentuated the interstitial markings. The superior mediastinal structures are midline. The cardiac silhouette is unremarkable in size, shape, and position. The diaphragmatic surfaces of the lungs are regular, and the costophrenic angles are clear. The pulmonary domingo are clear. The imaged osseous structures are intact. IMPRESSION: There is no acute cardiopulmonary disease. <Electronically signed by Dc Moraes > 12/04/201942
[2020-12-04 20:10] LABS: INR 1.23
[2020-12-04 20:11] LABS: PARTIAL THROMBOPLASTIN TIME 39.2 SECONDS (25.9-37.0)
[2020-12-04] MEDS ORDERED: ALBUTEROL 90 MCG/ACT 8GM HFA INHALER INH PRN (20:35)
[2020-12-04] MEDS ORDERED: IPRATROPIUM 0.5MG/ALBUTEROL 2.5MG INH SOL UD 3ML (DUONEB) NEB PRN (20:35)
[2020-12-04 20:55] LABS: FREE T4 1.16 NG/DL (0.76-1.46); MAGNESIUM LEVEL 1.9 MG/DL (1.8-2.4); THYROID STIMULATING HORMONE 3.07 uIU/ML (0.358-3.740)
[2020-12-04] MEDS: APIXABAN 5 MG TAB (ELIQUIS) PO SCH (21:35)
[2020-12-04] MEDS: THIAMINE 100 MG TAB PO SCH (21:35)
[2020-12-04 22:10] VITALS: BP 121/95
[2020-12-04 22:28] VITALS: BP 121/95
[2020-12-04] MEDS: ACETAMINOPHEN TAB 650MG DOSE (2X325MG) PO PRN (22:46)
[2020-12-04 23:26] LABS: BLOOD UREA NITROGEN 22 MG/DL (7-18); CALCIUM LEVEL 7.9 MG/DL (8.8-10.2); CARBON DIOXIDE LEVEL 18 MEQ/L (21-32); CHLORIDE LEVEL 98 MEQ/L (98-107); CREATININE FOR GFR 0.86 MG/DL (0.55-1.30); GLOMERULAR FILTRATION RATE > 60.0 (>39); GLUCOSE, FASTING 136 MG/DL (70-100); POTASSIUM SERUM 3.5 MEQ/L (3.5-5.1); SODIUM LEVEL 129 MEQ/L (136-145)
[2020-12-05] MEDS: ACETAMINOPHEN TAB 650MG DOSE (2X325MG) PO PRN ×4 (02:33→21:07)
[2020-12-05 02:37] LABS: OSMOLALITY SERUM 263 MOSM/KG (280-301)
[2020-12-05 04:25] LABS: BASO # 0.1 10^3/uL (0.0-0.2); BASO % 0.8 % (0.0-1.0); EOS % 0.5 % (0.0-3.0); HEMATOCRIT 37.1 % (36.0-47.0); HEMOGLOBIN 12.3 g/dl (12.0-15.5); LYMPH # 1.6 10^3/uL (1.5-5.0); LYMPH % 20.2 % (24.0-44.0); MEAN CORPUSCULAR HEMOGLOBIN 28.7 pg (27.0-33.0); MEAN CORPUSCULAR HGB CONC 33.2 g/dl (32.0-36.5); MEAN CORPUSCULAR VOLUME 86.5 fl (80.0-96.0); MONO # 1.3 10^3/uL (0.0-0.8); MONO % 15.9 % (2.0-8.0); NEUTROPHILS # 4.9 10^3/uL (1.5-8.5); RED BLOOD COUNT 4.29 10^6/uL (4.00-5.40); WHITE BLOOD COUNT 7.9 10^3/uL (4.0-10.0)
[2020-12-05 04:33] LABS: PLATELET COUNT, AUTOMATED 404 10^3/uL (150-450)
[2020-12-05 04:51] LABS: BLOOD UREA NITROGEN 20 MG/DL (7-18); CALCIUM LEVEL 8.1 MG/DL (8.8-10.2); CARBON DIOXIDE LEVEL 17 MEQ/L (21-32); CHLORIDE LEVEL 102 MEQ/L (98-107); CREATININE FOR GFR 0.66 MG/DL (0.55-1.30); GLOMERULAR FILTRATION RATE > 60.0 (>39); GLUCOSE, FASTING 86 MG/DL (70-100); POTASSIUM SERUM 3.3 MEQ/L (3.5-5.1); SODIUM LEVEL 130 MEQ/L (136-145)
[2020-12-05 04:55] LABS: ALBUMIN 2.5 GM/DL (3.2-5.2); BILIRUBIN,DIRECT 0.1 MG/DL (0.0-0.2); BILIRUBIN,TOTAL 0.2 MG/DL (0.2-1.0); TOTAL PROTEIN 5.6 GM/DL (6.4-8.2)
[2020-12-05] MEDS: LEVOTHYROXINE 50MCG TABLET (0.05MG) PO SCH (06:22)
[2020-12-05 06:40] VITALS: BP 139/82
[2020-12-05] MEDS: MULTIVITAMINS/MINERALS THERAP 1 TAB PO SCH (09:25)
[2020-12-05] MEDS: THIAMINE 100 MG TAB PO SCH ×2 (09:25→21:06)
[2020-12-05] MEDS: POTASSIUM CHLORIDE 10MEQ SR TABLET PO SCH (09:25)
[2020-12-05] MEDS: ATORVASTATIN 20 MG TAB PO SCH (09:26)
[2020-12-05] MEDS: FOLIC ACID 1 MG TAB PO SCH (09:26)
[2020-12-05] MEDS: OMEPRAZOLE 20 MG CAP PO SCH (09:27)
[2020-12-05] MEDS: APIXABAN 5 MG TAB (ELIQUIS) PO SCH ×2 (09:28→21:06)
[2020-12-05] MEDS: DIGOXIN 0.125 MG TAB PO SCH (09:28)
[2020-12-05] MEDS: buPROPion **XL** TABLET 150MG (WELLBUTRIN XL) PO SCH (09:29)
[2020-12-05 12:28] LABS: BLOOD UREA NITROGEN 20 MG/DL (7-18); CARBON DIOXIDE LEVEL 17 MEQ/L (21-32); CHLORIDE LEVEL 101 MEQ/L (98-107); CREATININE FOR GFR 0.75 MG/DL (0.55-1.30); GLOMERULAR FILTRATION RATE > 60.0 (>39); GLUCOSE, FASTING 113 MG/DL (70-100); POTASSIUM SERUM 3.6 MEQ/L (3.5-5.1); SODIUM LEVEL 129 MEQ/L (136-145)
[2020-12-05] MEDS ORDERED: LOPERAMIDE 2 MG CAPLET PO PRN (12:55)
[2020-12-05 14:00] VITALS: BP_SYST 129; BP_SYST 135; BP_DIAS 54; BP_DIAS 69
[2020-12-05 16:40] LABS: BLOOD UREA NITROGEN 22 MG/DL (7-18); CALCIUM LEVEL 8.6 MG/DL (8.8-10.2); CARBON DIOXIDE LEVEL 19 MEQ/L (21-32); CHLORIDE LEVEL 105 MEQ/L (98-107); CREATININE FOR GFR 0.84 MG/DL (0.55-1.30); GLOMERULAR FILTRATION RATE > 60.0 (>39); GLUCOSE, FASTING 128 MG/DL (70-100); POTASSIUM SERUM 3.6 MEQ/L (3.5-5.1); SODIUM LEVEL 131 MEQ/L (136-145)
--- NOTE | 2020-12-05 17:26 | IPNPDOC ---
Text Note Date of Service The patient was seen on 12/05/20. NOTE Subjective: Patient is a 70-year-old female with past medical history of CHF, coronary disease, hyperlipidemia, hypertension, A. fib on Eliquis, COPD, GERD, hypothyroidism, daily alcohol use who presents to the emergency department from her PCP office for further evaluation of nausea/vomiting/diarrhea persistent for approximately 5 days. According to the patient's daughter, the diarrhea has been present for years. Patient says that she is feeling better and was able to eat a grilled cheese sandwich and tomato soup without any difficulty. Patient was feeling better but was still having some diarrhea and stated that her meals go right through her. Patient has not seen gastroenterology but will had an appointment scheduled but the patient having to be hospitalized. Patient is otherwise feeling well today. Review of systems: General: Patient denies fevers HEENT: Patient denies headaches Cardiovascular: Patient denies chest pain Respiratory: Patient denies shortness of breath, cough GI: Patient reports diarrhea. Patient denies abdominal pain, nausea, vomiting : Patient denies increased frequency or pain with urination Extremities: Patient denies swelling or pain in extremities Neurological: Patient denies numbness or tingling in legs Physical exam: Vitals: See below General: Alert and oriented female patient who was sitting on the edge of the bed when I walked in. Patient did not appear to be in any acute distress. HEENT: Normocephalic, atraumatic, moist mucous membranes. Neck: No lymphadenopathy or thyromegaly Cardiac: Regular rate and rhythm, no murmurs, normal S1, normal S2 Pulm: Clear to auscultation bilaterally. No wheezes, rhonchi, rales Abd: Nondistended, nontender to palpation, normal bowel sounds Ext: No edema bilateral lower extremities Labs: See below Imaging: No new imaging is been performed Assessment/plan: 70-year-old female who presented to the emergency department with nausea, vomiting, diarrhea that has been persistent causing dehydration was found to be hyponatremic 1. Hyponatremia. Most likely secondary to volume depletion as well as poor oral intake. Patient's sodium has slowly been corrected and is currently 131. She was 124 in the emergency department yesterday. We will continue to monitor and feed the patient what she can tolerate. We will continue to monitor. 2. Nausea, vomiting, diarrhea. GI panel negative. Apparently the diarrhea has been going on for quite some time and patient will need GI follow-up outpatient. Patient will with the patient's diarrhea prior to seeing gastroenterology. 3. Alcohol use. Patient drinks about 4 glasses of wine daily and her last drink was 2 days ago. This puts her near the diaphragm would expect to see withdrawal symptoms. Placed on CIWA but has not had any withdrawal symptoms. 4. Heart failure with preserved ejection fraction, chronic. She does not appear volume overloaded. We will continue to monitor. 5. Asymptomatic bacteriuria. Patient does not have a complaint of any urinary tract infection symptoms. We will withhold antibiotics at this time. 6. COPD. Not acute exacerbation. Continue to monitor. 7. Atrial fibrillation. Rate controlled. Continue digoxin and Eliquis. 8. Hypertension. Continue home medications. 9. GERD. Continue omeprazole. 10. Hyperlipidemia. Continue home medications. 11. Hypothyroidism. Continue home medications. 12. Depression/anxiety. Continue Wellbutrin. 13. Nicotine use. Patch has been ordered. DVT Prophylaxis: [] Disposition: [] VS,Joyce, I+O VSJoyce, I+O Laboratory Tests 12/04/20 17:25 12/04/20 22:44 12/05/20 04:09 12/05/20 11:47 12/05/20 16:02 Vital Signs Date Time Temp Pulse Resp B/P (MAP) Pulse Ox O2 Delivery O2 Flow Rate FiO2 12/05/20 09:30 84 134/59 12/05/20 06:40 97.8 18 99 Room Air I&O- Last 24 Hours up to 6 AM 12/05/20 06:00 Intake Total 500 ml Balance 500 ml CARLOS HERNANDEZ DO Dec 05, 2020 17:26
[2020-12-05] MEDS ORDERED: MICONAZOLE-7 VAGINAL 2% CREAM 47.7GM PV SCH (21:00)
[2020-12-05 22:00] VITALS: BP 150/62
[2020-12-05 23:15] LABS: BLOOD UREA NITROGEN 19 MG/DL (7-18); CALCIUM LEVEL 8.2 MG/DL (8.8-10.2); CARBON DIOXIDE LEVEL 15 MEQ/L (21-32); CHLORIDE LEVEL 108 MEQ/L (98-107); CREATININE FOR GFR 0.88 MG/DL (0.55-1.30); GLOMERULAR FILTRATION RATE > 60.0 (>39); GLUCOSE, FASTING 169 MG/DL (70-100); POTASSIUM SERUM 3.9 MEQ/L (3.5-5.1); SODIUM LEVEL 132 MEQ/L (136-145)
[2020-12-06] MEDS: ACETAMINOPHEN TAB 650MG DOSE (2X325MG) PO PRN (02:32)
[2020-12-06] MEDS: LEVOTHYROXINE 50MCG TABLET (0.05MG) PO SCH (05:04)
[2020-12-06 06:00] VITALS: BP 127/96
[2020-12-06] MEDS ORDERED: COLA100C5 PO (07:48)
[2020-12-06] MEDS ORDERED: LOPE2CA PO (07:48)
[2020-12-06] MEDS ORDERED: FOLI1TAB11 PO (07:48)
[2020-12-06] MEDS: MULTIVITAMINS/MINERALS THERAP 1 TAB PO SCH (09:05)
[2020-12-06] MEDS: OMEPRAZOLE 20 MG CAP PO SCH (09:05)
[2020-12-06] MEDS: POTASSIUM CHLORIDE 10MEQ SR TABLET PO SCH (09:05)
[2020-12-06] MEDS: FOLIC ACID 1 MG TAB PO SCH (09:05)
[2020-12-06] MEDS: buPROPion **XL** TABLET 150MG (WELLBUTRIN XL) PO SCH (09:05)
[2020-12-06] MEDS: APIXABAN 5 MG TAB (ELIQUIS) PO SCH (09:05)
[2020-12-06] MEDS: THIAMINE 100 MG TAB PO SCH (09:05)
[2020-12-06] MEDS: ATORVASTATIN 20 MG TAB PO SCH (09:05)
[2020-12-06 09:06] VITALS: BP 136/82
[2020-12-06] MEDS: DIGOXIN 0.125 MG TAB PO SCH (09:06)
--- NOTE | 2020-12-06 12:28 | DS.PDOC ---
Discharge Summary General Date of Admission Dec 05, 2020 at 12:54 Date of Discharge 12/06/2020 Primary Care Physician: OMER BRIAN [employer] Attending Physician: CARLOS HERNANDEZ DO Discharge Summary PROCEDURES PERFORMED DURING STAY: None. ADMITTING DIAGNOSES: 1. Hyponatremia. 2. Nausea, vomiting, diarrhea 3. Alcoholism 4. CHF 5. Asymptomatic bacteriuria 6. COPD 7. A. fib 8. Hypertension 9. GERD 10. Hyperlipidemia 11. Hypothyroidism 12. Depression/anxiety 13. Nicotine use DISCHARGE DIAGNOSES: 1. Hyponatremia, improved 2. Nausea, vomiting, diarrhea, improved 3. Alcoholism 4. CHF, not in exacerbation, preserved ejection fraction 5. Asymptomatic bacteriuria 6. COPD 7. A. fib 8. Hypertension 9. GERD 10. Hyperlipidemia 11. Hypothyroidism 12. Depression/anxiety 13. Nicotine use COMPLICATIONS/CHIEF COMPLAINT: Diarrhea, Hyponatremia. HISTORY OF PRESENT ILLNESS: Patient is a 68-year-old female with past medical history of CHF, coronary disease, hyperlipidemia, hypertension, A. fib on Eliquis, COPD, GERD, hypothyroidism, daily alcohol use who presents to emergency department on 12/04/2020 from her PCP office for further evaluation for persistent nausea vomiting and diarrhea for approximately 5 days. Patient tells the admitting provider that the symptoms came on suddenly and have been having approximately 5 loose watery bowel movements per day. Patient denies blood or dark stools. Patient states that she has had poor oral intake due to her symptoms of nausea and tells the admitting provider that whenever she does it, she often will vomit up and have a bout of diarrhea soon thereafter. Patient tells me that she has not experienced any eder abdominal pain, rather just some cramps when she is having a bowel movement. Patient at the time of the admitting provider's exam, denies any sick contacts, recent travel, fevers, chills, chest pain, shortness breath, cough, wheezing, dysuria, pedal edema, syncope. Patient states her last drink was about 2 days ago. HOSPITAL COURSE: Patient's diarrhea slowed down and patient was rehydrated. Patient was feeling better but stated that when she eats she does have some diarrhea. According to the patient's daughter, this diarrhea has been going on for years and they are awaiting a gastroenterology follow-up. Patient has been having difficulty getting into gastroenterology. Patient is not tried anything for the diarrhea. Patient had a GI panel here in the hospital that was negative. Patient sodium was closely monitored and came back up around 130. Patient was asymptomatic. Patient was instructed to try to avoid drinking alcohol as this may be contributing to her diarrhea and her hyponatremia. 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 I did asked the patient to at least cut back as this is contributing to her symptoms and if her symptoms are getting so bad that she requires hospitalization then drinking her wine may not be worth it. Patient's diarrhea was improved and the patient was feeling better. Patient was deemed ready for discharge and was discharged home on 12/06/2020. DISCHARGE MEDICATIONS: Please see below. ALLERGIES: Please see below. PHYSICAL EXAMINATION ON DISCHARGE: General: Alert and oriented female patient who was sitting up in bed when I walked in the room. Patient not appear to be in any acute distress. HEENT: Normocephalic, atraumatic, moist mucous membranes. Neck: No lymphadenopathy or thyromegaly Cardiac: Regular rate and rhythm, no murmurs, normal S1, normal S2 Pulm: Clear to auscultation bilaterally. No wheezes, rhonchi, rales Abd: Nondistended, nontender to palpation, normal bowel sounds Ext: No edema bilateral lower extremities LABORATORY DATA: Please see below. IMAGING: Chest x-ray performed on 12/04/2020 was reported to show no there is no acute cardiopulmonary disease. PROGNOSIS: Fair ACTIVITY: As tolerated. DIET: Regular DISCHARGE PLAN: Discharge home DISPOSITION: 01 Home, Self-Care. DISCHARGE INSTRUCTIONS: 1. Follow-up with primary care provider within 3 to 5 days discharge. 2. If diarrhea continues, take Imodium as instructed. If you become constipated, avoid laxatives and try stool softener such as Colace. 3. Avoid drinking alcohol 4. Return to the emergency department if symptoms worsen ITEMS TO FOLLOWUP ON ON OUTPATIENT: 1. Gastroenterology referral. DISCHARGE CONDITION: Stable. TIME SPENT ON DISCHARGE: 35 minutes. Vital Signs/I&Os Vital Signs Date Time Temp Pulse Resp B/P (MAP) Pulse Ox O2 Delivery O2 Flow Rate FiO2 12/06/20 09:06 92 12/06/20 09:06 136/82 12/06/20 06:00 99.5 20 98 Room Air I&O- Last 24 Hours up to 6 AM 12/06/20 06:00 Intake Total 560 ml Output Total 0 ml Balance 560 ml Laboratory Data Labs 24H Laboratory Tests 2 12/05/20 12:31: Bedside Glucose (Misc Panel) 114H 12/05/20 16:02: Anion Gap 7L, Glomerular Filtration Rate > 60.0, Calcium Level 8.6L 12/05/20 16:21: Urine Osmolality 346 12/05/20 21:58: Anion Gap 9, Glomerular Filtration Rate > 60.0, Calcium Level 8.2L CBC/BMP Laboratory Tests 12/05/20 16:02 12/05/20 21:58 FSBS Laboratory Tests Test 12/05/20 12:31 Range/Units Bedside Glucose (Misc Panel) 114 83-110 MG/DL Microbiology Microbiology 12/05/20 Gastrointestinal Tract Panel (PCR) - Final, Complete 12/04/20 Urine Culture - Final, Complete Discharge Medications Scheduled Acetaminophen (Acetaminophen) 500 Mg Tablet, 1,000 MG PO QHS, (Reported) Amlodipine Besylate (Amlodipine Besylate) 10 Mg Tablet, 10 MG PO DAILY, (Reported) Apixaban (Eliquis) 5 Mg Tablet, 5 MG PO BID, (Reported) Atorvastatin Calcium (Atorvastatin Calcium) 20 Mg Tablet, 20 MG PO DAILY, (Reported) Bupropion Hcl (Bupropion Xl) 150 Mg Tab.er.24h, 150 MG PO DAILY, (Reported) Digoxin (Digoxin) 125 Mcg Tablet, 125 MCG PO DAILY, (Reported) Folic Acid (Folic Acid) 1 Mg Tablet, 1 MG PO DAILY Ketoconazole (Ketoconazole) 15 Gm Cream..g., 1 APLCT TOP DAILY, (Reported) APPLY TO PERINEAL AREA Levothyroxine Sodium (Synthroid) 50 Mcg Tablet, 50 MCG PO QAM, (Reported) Multivitamins (Thera M Plus Tablet) 1 Each Tablet, 1 TAB PO DAILY, (Reported) Omeprazole (Omeprazole) 20 Mg Capsule.dr, 20 MG PO DAILY, (Reported) Potassium Chloride (Potassium Chloride) 20 Meq Tab.er.prt, 20 MEQ PO DAILY, (Reported) Scheduled PRN Albuterol Sulfate (Albuterol Sulfate Hfa) 8.5 Gm Hfa.aer.ad, 1 PUFF PO Q4H PRN for SHORTNESS OF BREATH, (Reported) Docusate Sodium (Colace) 100 Mg Capsule, 100 MG PO DAILYPRN PRN for CONSTIPATION Ipratropium/Albuterol Sulfate (Iprat-Albut 0.5-3(2.5) mg/3 ml) 3 Ml Ampul.neb, 1 VIAL NEB Q6H PRN for SOB/WHEEZING, (Reported) Loperamide HCl (Anti-Diarrheal) 2 Mg Tablet, 2 MG PO ASDIRECTED PRN for DIARRHEA Allergies Coded Allergies: prochlorperazine (Verified Adverse Reaction, Severe, RIGIDITY OF JAW, 08/29/20) cephalexin (Verified Adverse Reaction, Mild, N/V, 08/29/20) codeine (Verified Adverse Reaction, Mild, N/V, 08/29/20) lisinopril (Verified Adverse Reaction, Mild, INCREASES POTASSIUM LEVEL, 08/29/20) meperidine (Verified Adverse Reaction, Mild, INCREASED K, 08/29/20) CARLOS HERNANDEZ DO Dec 06, 2020 12:28
== END 2020-12-06 11:25 | disposition home or self-care (01) | DRG 392 ==
LOC: M ED 15:37 → EDBD 15:37 → M ED INP 15:38 → ENRESERV 21:21 → M MS5PR 22:36 → OBSVTOIN 12-05 12:54
PROVIDERS: ADMIT Internal Medicine; ATTEND Internal Medicine
DX: R11.2 Nausea with vomiting, unspecified (principal); E87.1 Hypo-osmolality and hyponatremia; I50.32 Chronic diastolic (congestive) heart failure; R19.7 Diarrhea, unspecified; F10.20 Alcohol dependence, uncomplicated; J44.9 Chronic obstructive pulmonary disease, unspecified; I48.91 Unspecified atrial fibrillation; I11.0 Hypertensive heart disease with heart failure; E03.9 Hypothyroidism, unspecified; F41.9 Anxiety disorder, unspecified; F32.A Depression, unspecified; F17.210 Nicotine dependence, cigarettes, uncomplicated; Z79.899 Other long term (current) drug therapy; Z20.822 Contact with and (suspected) exposure to COVID-19; Z88.1 Allergy status to other antibiotic agents; Z88.5 Allergy status to narcotic agent; Z88.8 Allergy status to other drugs, medicaments and biological substances; I25.10 Atherosclerotic heart disease of native coronary artery without angina pectoris; E78.5 Hyperlipidemia, unspecified; Z79.01 Long term (current) use of anticoagulants; K21.9 Gastro-esophageal reflux disease without esophagitis

== ENCOUNTER 2021-02-26 08:48 | Inpatient (IN) | payer MEDICARE ==
[~2021-02-26] VITALS: Ht 157.5 cm; Wt 45.7 kg
[~2021-02-26 08:48] MED LIST changes: +COLA100C5 PO; +KETO2CR TOP; -LEVO250T12 PO; +LEVO250T3 PO; -LEVO500T3 PO; +LEVO500T4 PO; +LOPE2CA PO; -NICOTINE 14 MG/24 HR TRANSDERMAL TD PRN; +OMEP-173 PO; -OMEP-218 PO; +POTA-151 PO; -POTA20TA6 PO
[2021-02-26] MEDS ORDERED: TORS10TA3 PO (09:06)
[2021-02-26] MEDS ORDERED: METO1TAB87 PO (09:06)
[2021-02-26] MEDS ORDERED: OCUVTAB4 PO (09:07)
[2021-02-26 10:32] LABS: BASO % 0.3 % (0.0-1.0); HEMATOCRIT 42.3 % (36.0-47.0); HEMOGLOBIN 13.5 g/dl (12.0-15.5); LYMPH # 0.7 10^3/uL (1.5-5.0); LYMPH % 7.8 % (24.0-44.0); MEAN CORPUSCULAR HEMOGLOBIN 30.3 pg (27.0-33.0); MEAN CORPUSCULAR HGB CONC 31.9 g/dl (32.0-36.5); MEAN CORPUSCULAR VOLUME 94.8 fl (80.0-96.0); MONO # 0.7 10^3/uL (0.0-0.8); MONO % 7.7 % (2.0-8.0); NEUTROPHILS # 7.9 10^3/uL (1.5-8.5); NEUTROPHILS % 83.2 % (36.0-66.0); PLATELET COUNT, AUTOMATED 243 10^3/uL (150-450); RED BLOOD COUNT 4.46 10^6/uL (4.00-5.40); WHITE BLOOD COUNT 9.4 10^3/uL (4.0-10.0)
[2021-02-26 11:16] LABS: ALBUMIN 2.3 GM/DL (3.2-5.2); ALT/SGPT 19 U/L (12-78); BILIRUBIN,DIRECT 0.1 MG/DL (0.0-0.2); BILIRUBIN,TOTAL 0.3 MG/DL (0.2-1.0); BLOOD UREA NITROGEN 15 MG/DL (7-18); CALCIUM LEVEL 7.9 MG/DL (8.8-10.2); CARBON DIOXIDE LEVEL 21 MEQ/L (21-32); CHLORIDE LEVEL 104 MEQ/L (98-107); CREATININE FOR GFR 0.67 MG/DL (0.55-1.30); GLOMERULAR FILTRATION RATE > 60.0 (>39); GLUCOSE, FASTING 77 MG/DL (70-100); NT-PRO BNP 2471 PG/ML (<125); POTASSIUM SERUM 3.9 MEQ/L (3.5-5.1); SODIUM LEVEL 134 MEQ/L (136-145); TOTAL PROTEIN 5.8 GM/DL (6.4-8.2)
[2021-02-26] MEDS ORDERED: FUROSEMIDE 40MG/4ML VIAL (J1940) IV ONE (11:20)
[2021-02-26] MEDS ORDERED: ISOVUE-370 76% 100ML VIAL As Ordered ONE (12:36)
[2021-02-26] MEDS ORDERED: IPRATROPIUM 0.5MG/ALBUTEROL 2.5MG INH SOL UD 3ML (DUONEB) NEB PRN (14:10)
[2021-02-26] MEDS ORDERED: HOME MED LIST COMPLETE! XX SCH (14:20)
[2021-02-26] MEDS ORDERED: ACETAMINOPHEN 500 MG TAB PO ONE (14:50)
[2021-02-26] MEDS ORDERED: REMDESIVIR 200 MG in NS 250 ML IV ONE (18:00)
[2021-02-26] MEDS ORDERED: SODIUM CHLORIDE 0.9% INJ 10 ML SYR IV ONE (20:00)
[2021-02-26] MEDS ORDERED: KETOROLAC 30 MG/ML 1ML VIAL IV ONE (20:15)
[2021-02-26] MEDS ORDERED: ACETAMINOPHEN 500 MG TAB PO SCH (21:00)
[2021-02-27 00:08] VITALS: BP 126/60
[2021-02-27] MEDS: APIXABAN 5 MG TAB (ELIQUIS) PO SCH ×2 (00:33→09:16)
[2021-02-27] MEDS: DIGOXIN 0.125 MG TAB PO SCH ×2 (00:56→09:16)
[2021-02-27] MEDS: ATORVASTATIN 20 MG TAB PO SCH ×2 (00:57→09:16)
[2021-02-27] MEDS: OMEPRAZOLE 20 MG CAP PO SCH ×2 (00:58→09:15)
[2021-02-27] MEDS: METOPROLOL TART 50 MG TAB PO SCH ×2 (00:58→09:16)
[2021-02-27] MEDS: buPROPion **XL** TABLET 150MG (WELLBUTRIN XL) PO SCH ×2 (00:58→09:16)
[2021-02-27] MEDS: dexameTHASONE 20MG/5ML VIAL (J1100 PER 1MG) IV SCH ×2 (00:59→09:15)
[2021-02-27] MEDS: FUROSEMIDE 40MG/4ML VIAL (J1940) IV SCH ×3 (00:59→11:30)
[2021-02-27] MEDS ORDERED: LEVOTHYROXINE 50MCG TABLET (0.05MG) PO SCH (06:00)
[2021-02-27 06:50] LABS: BASO % 0.4 % (0.0-1.0); EOS % 0.2 % (0.0-3.0); HEMATOCRIT 38.2 % (36.0-47.0); HEMOGLOBIN 12.4 g/dl (12.0-15.5); LYMPH # 1.3 10^3/uL (1.5-5.0); MEAN CORPUSCULAR HEMOGLOBIN 30.5 pg (27.0-33.0); MEAN CORPUSCULAR HGB CONC 32.5 g/dl (32.0-36.5); MEAN CORPUSCULAR VOLUME 94.1 fl (80.0-96.0); MONO % 18.1 % (2.0-8.0); PLATELET COUNT, AUTOMATED 247 10^3/uL (150-450); RED BLOOD COUNT 4.06 10^6/uL (4.00-5.40); WHITE BLOOD COUNT 5.4 10^3/uL (4.0-10.0)
[2021-02-27 07:15] LABS: ALT/SGPT 15 U/L (12-78); BILIRUBIN,TOTAL 0.1 MG/DL (0.2-1.0); BLOOD UREA NITROGEN 13 MG/DL (7-18); CALCIUM LEVEL 7.9 MG/DL (8.8-10.2); CARBON DIOXIDE LEVEL 25 MEQ/L (21-32); CHLORIDE LEVEL 106 MEQ/L (98-107); CREATININE FOR GFR 0.68 MG/DL (0.55-1.30); GLOMERULAR FILTRATION RATE > 60.0 (>39); GLUCOSE, FASTING 73 MG/DL (70-100); MAGNESIUM LEVEL 1.3 MG/DL (1.8-2.4); PHOSPHORUS LEVEL 3.1 MG/DL (2.5-4.9); POTASSIUM SERUM 3.3 MEQ/L (3.5-5.1); SODIUM LEVEL 137 MEQ/L (136-145); TOTAL PROTEIN 5.7 GM/DL (6.4-8.2)
[2021-02-27] MEDS ORDERED: buPROPion **XL** TABLET 150MG (WELLBUTRIN XL) PO SCH (09:00)
[2021-02-27] MEDS ORDERED: TORS20TA2 PO (11:00)
[2021-02-27] MEDS ORDERED: POTASSIUM CHLORIDE 10MEQ SR TABLET PO ONE (11:15)
[2021-02-27] MEDS ORDERED: MAGNESIUM OXIDE 400MG TAB (MAG-OX) PO ONE (11:15)
[2021-02-27] MEDS ORDERED: REMDESIVIR 100 MG in NS 250 ML IV SCH (18:00)
[2021-02-27] MEDS ORDERED: SODIUM CHLORIDE 0.9% INJ 10 ML SYR IV SCH (19:00)
== END 2021-02-27 13:35 | disposition home or self-care (01) | DRG 177 ==
LOC: M ED 08:48 → M ED INP 14:06 → ENRESERV 23:41 → M 4MAIN 02-27 00:10
PROVIDERS: ADMIT Internal Medicine; ATTEND Internal Medicine
DX: U07.1 COVID-19 (principal); I50.33 Acute on chronic diastolic (congestive) heart failure; J44.9 Chronic obstructive pulmonary disease, unspecified; I48.91 Unspecified atrial fibrillation; I11.0 Hypertensive heart disease with heart failure; E03.9 Hypothyroidism, unspecified; K21.9 Gastro-esophageal reflux disease without esophagitis; F32.A Depression, unspecified; Z79.899 Other long term (current) drug therapy; Z88.5 Allergy status to narcotic agent; Z88.8 Allergy status to other drugs, medicaments and biological substances; Z85.828 Personal history of other malignant neoplasm of skin; F17.210 Nicotine dependence, cigarettes, uncomplicated; F10.10 Alcohol abuse, uncomplicated; E78.5 Hyperlipidemia, unspecified

== ENCOUNTER 2021-09-06 20:33 | Emergency (ER) | payer MEDICARE ==
[~2021-09-06] VITALS: Ht 154.9 cm; Wt 45.5 kg
[~2021-09-06 20:33] MED LIST changes: +LEVO1TAB38 PO; +LEVO1TAB39 PO; +LEVO1TAB40 PO; -LEVO250T3 PO; -LEVO500T4 PO; -LEVO750T13 PO; +POTA-150 PO; -POTA10TA17 PO; +TORS10TA3 PO
[2021-09-06 22:00] LABS: BASO # 0.1 10^3/uL (0.0-0.2); BASO % 0.8 % (0.0-1.0); EOS % 0.1 % (0.0-3.0); HEMATOCRIT 33.5 % (36.0-47.0); HEMOGLOBIN 11.3 g/dl (12.0-15.5); LYMPH # 1.6 10^3/uL (1.5-5.0); LYMPH % 20.1 % (24.0-44.0); MEAN CORPUSCULAR HEMOGLOBIN 34.5 pg (27.0-33.0); MEAN CORPUSCULAR HGB CONC 33.7 g/dl (32.0-36.5); MEAN CORPUSCULAR VOLUME 102.1 fl (80.0-96.0); MONO # 0.8 10^3/uL (0.0-0.8); MONO % 10.6 % (2.0-8.0); NEUTROPHILS # 5.3 10^3/uL (1.5-8.5); PLATELET COUNT, AUTOMATED 345 10^3/uL (150-450); RED BLOOD COUNT 3.28 10^6/uL (4.00-5.40); WHITE BLOOD COUNT 7.7 10^3/uL (4.0-10.0)
[2021-09-06 22:23] LABS: CK-MB VALUE MASS 3.4 NG/ML (<3.6); MB/CK RELATIVE INDEX 5.57 (< OR =4)
[2021-09-06 22:37] LABS: ALBUMIN 2.2 GM/DL (3.2-5.2); ALT/SGPT 74 U/L (12-78); BILIRUBIN,DIRECT 0.2 MG/DL (0.0-0.2); BILIRUBIN,TOTAL 0.4 MG/DL (0.2-1.0); BLOOD UREA NITROGEN 9 MG/DL (7-18); CALCIUM LEVEL 7.9 MG/DL (8.8-10.2); CARBON DIOXIDE LEVEL 23 MEQ/L (21-32); CHLORIDE LEVEL 93 MEQ/L (98-107); CREATININE FOR GFR 0.56 MG/DL (0.55-1.30); DIGOXIN LEVEL 0.1 NG/ML (0.5-2.0); FREE T4 0.99 NG/DL (0.76-1.46); GLOMERULAR FILTRATION RATE > 60.0 (>39); GLUCOSE, FASTING 72 MG/DL (70-100); POTASSIUM SERUM 3.2 MEQ/L (3.5-5.1); SODIUM LEVEL 131 MEQ/L (136-145); TOTAL PROTEIN 5.5 GM/DL (6.4-8.2)
[2021-09-06 22:46] LABS: RSV AMPLIFICATION NEGATIVE (NEGATIVE)
[2021-09-06] MEDS ORDERED: DIGOXIN INJ 0.5 MG/2 ML AMP (J1160) IV ONE (22:50)
[2021-09-06 23:00] VITALS: BP 138/67
== END 2021-09-07 00:39 | disposition home or self-care (01) ==
LOC: M ED 20:33
DX: F10.129 Alcohol abuse with intoxication, unspecified (principal); I48.20 Chronic atrial fibrillation, unspecified; I10 Essential (primary) hypertension; E78.5 Hyperlipidemia, unspecified; J44.9 Chronic obstructive pulmonary disease, unspecified; K21.9 Gastro-esophageal reflux disease without esophagitis; F17.200 Nicotine dependence, unspecified, uncomplicated; Z86.79 Personal history of other diseases of the circulatory system; Z88.1 Allergy status to other antibiotic agents; Z88.8 Allergy status to other drugs, medicaments and biological substances; Z88.5 Allergy status to narcotic agent; Z91.14 Patient's other noncompliance with medication regimen; Z79.51 Long term (current) use of inhaled steroids; Z79.01 Long term (current) use of anticoagulants; Z79.899 Other long term (current) drug therapy
CPT/HCPCS: 70450; 71045; 80048; 80076; 80162; 81001; 82077; 82550; 82553; 83605; 84439; 84443; 84484; 85025; 87088; 87186; 87631; 93005; 93041; 94760; 96374; 99285; J1160

== ENCOUNTER 2021-12-06 08:29 | Inpatient (IN) | payer MEDICARE ==
[~2021-12-06] VITALS: Ht 157.5 cm; Wt 43.5 kg
[~2021-12-06 08:29] MED LIST changes: +MACR100C43 PO
[2021-12-06] MEDS ORDERED: FLUORESCEIN OPHTH 1 MG STRIP OS ONE (09:10)
[2021-12-06] MEDS ORDERED: PROPARACAINE 0.5% OPHTH SOL 15ML OS ONE (09:10)
[2021-12-06] MEDS ORDERED: valACYclovir HCL 500 MG TAB PO ONE (10:10)
[2021-12-06] MEDS ORDERED: GABAPENTIN 300 MG CAP PO ONE (10:10)
[2021-12-06] MEDS ORDERED: VANCOMYCIN HCL 1,000 MG, VIAL MATE ADAPTER 1 EACH in NS 250 ML IV ONE (10:20)
[2021-12-06 10:35] LABS: BASO # 0.1 10^3/uL (0.0-0.2); BASO % 0.5 % (0.0-1.0); EOS % 0.1 % (0.0-3.0); LYMPH # 1.2 10^3/uL (1.5-5.0); LYMPH % 8.8 % (24.0-44.0); MEAN CORPUSCULAR HEMOGLOBIN 33.5 pg (27.0-33.0); MEAN CORPUSCULAR HGB CONC 33.3 g/dl (32.0-36.5); MEAN CORPUSCULAR VOLUME 100.5 fl (80.0-96.0); MONO % 7.1 % (2.0-8.0); NEUTROPHILS # 11.2 10^3/uL (1.5-8.5); PLATELET COUNT, AUTOMATED 369 10^3/uL (150-450); RED BLOOD COUNT 3.88 10^6/uL (4.00-5.40); WHITE BLOOD COUNT 13.4 10^3/uL (4.0-10.0)
[2021-12-06 11:03] LABS: RSV AMPLIFICATION NEGATIVE (NEGATIVE)
[2021-12-06 11:07] LABS: ERYTHROCYTE SEDIMENTATION RATE 2 mm/hr (0-30)
[2021-12-06 12:32] LABS: ALBUMIN 2.2 GM/DL (3.2-5.2); ALT/SGPT 35 U/L (12-78); BILIRUBIN,DIRECT < 0.1 MG/DL (0.0-0.2); BILIRUBIN,TOTAL 0.4 MG/DL (0.2-1.0); BLOOD UREA NITROGEN 17 MG/DL (7-18); C REACTIVE PROTEIN QUANTITATIV 1.12 MG/DL (0.00-0.30); CALCIUM LEVEL 8.1 MG/DL (8.8-10.2); CARBON DIOXIDE LEVEL 19 MEQ/L (21-32); CHLORIDE LEVEL 96 MEQ/L (98-107); CK-MB VALUE MASS 3.2 NG/ML (<3.6); CREATININE FOR GFR 0.67 MG/DL (0.55-1.30); GLOMERULAR FILTRATION RATE > 60.0 (>39); GLUCOSE, FASTING 94 MG/DL (70-100); MB/CK RELATIVE INDEX 7.62 (< OR =4); NT-PRO BNP 3950 PG/ML (<125); SODIUM LEVEL 126 MEQ/L (136-145); THYROXINE (T4) 4.7 UG/DL (4.5-12.0); TOTAL PROTEIN 5.2 GM/DL (6.4-8.2)
[2021-12-06] MEDS ORDERED: NS 1,000 ML IV ONE (13:55)
[2021-12-06] MEDS ORDERED: ISOVUE-370 76% 100ML VIAL As Ordered ONE (14:08)
[2021-12-06] MEDS ORDERED: MIDODRINE 5 MG TAB PO ONE (17:00)
[2021-12-06] MEDS ORDERED: VIT1TABL25 PO (17:28)
[2021-12-06] MEDS ORDERED: TORS20TA2 PO (17:28)
[2021-12-06] MEDS ORDERED: HOME MED LIST COMPLETE! XX SCH (17:40)
[2021-12-06 19:45] VITALS: BP 110/61
[2021-12-06] MEDS: ACETAMINOPHEN 325 MG/10.15 ML UDC PO PRN (20:40)
[2021-12-06] MEDS: RAMELTEON 8 MG TAB (ROZEREM) PO PRN (20:41)
[2021-12-06] MEDS: TORSEMIDE 20 MG TAB PO SCH (20:41)
[2021-12-06] MEDS: DIGOXIN 0.125 MG TAB PO SCH (20:41)
[2021-12-06] MEDS: OMEPRAZOLE 20MG CAP PO SCH (20:41)
[2021-12-06] MEDS: ATORVASTATIN 20 MG TAB PO SCH (20:42)
[2021-12-06] MEDS: METOPROLOL TART 50 MG TAB PO SCH (20:42)
[2021-12-06] MEDS: APIXABAN 5 MG TAB (ELIQUIS) PO SCH (20:42)
[2021-12-06] MEDS: POTASSIUM CHLORIDE 10MEQ SR TABLET PO SCH (20:43)
[2021-12-06] MEDS: LEVOTHYROXINE 50MCG TABLET (0.05MG) PO SCH (20:43)
[2021-12-06] MEDS: VANCOMYCIN HCL 750 MG, VIAL MATE ADAPTER 1 EACH in D5W 250 ML IV SCH (20:48)
[2021-12-06 22:00] VITALS: BP 113/58
[2021-12-06] MEDS ORDERED: VANCOMYCIN HCL 1,000 MG, VIAL MATE ADAPTER 1 EACH in NS 250 ML IV SCH (22:00)
[2021-12-07] VITALS (8 sets, daily range): BP systolic 101–121; BP diastolic 58–96
[2021-12-07] MEDS: ACYCLOVIR 500 MG in D5W MINI-BAG PLUS 100 ML IV SCH ×3 (00:08→23:56)
[2021-12-07] MEDS: POLYVINYL ALCOHOL OPHTH SOLN 15 ML(LIQUITEARS) OU SCH ×5 (00:08→21:37)
[2021-12-07] MEDS: ACETAMINOPHEN 325 MG/10.15 ML UDC PO PRN ×3 (02:12→20:42)
[2021-12-07 06:08] LABS: BASO # 0.1 10^3/uL (0.0-0.2); BASO % 0.8 % (0.0-1.0); EOS % 0.2 % (0.0-3.0); HEMATOCRIT 34.4 % (36.0-47.0); HEMOGLOBIN 11.4 g/dl (12.0-15.5); LYMPH % 11.4 % (24.0-44.0); MEAN CORPUSCULAR HEMOGLOBIN 33.5 pg (27.0-33.0); MEAN CORPUSCULAR HGB CONC 33.1 g/dl (32.0-36.5); MEAN CORPUSCULAR VOLUME 101.2 fl (80.0-96.0); NEUTROPHILS # 6.7 10^3/uL (1.5-8.5); PLATELET COUNT, AUTOMATED 312 10^3/uL (150-450); WHITE BLOOD COUNT 8.8 10^3/uL (4.0-10.0)
[2021-12-07 06:52] LABS: BLOOD UREA NITROGEN 16 MG/DL (7-18); CALCIUM LEVEL 7.8 MG/DL (8.8-10.2); CARBON DIOXIDE LEVEL 21 MEQ/L (21-32); CHLORIDE LEVEL 106 MEQ/L (98-107); CREATININE FOR GFR 0.68 MG/DL (0.55-1.30); GLOMERULAR FILTRATION RATE > 60.0 (>39); GLUCOSE, FASTING 86 MG/DL (70-100); POTASSIUM SERUM 3.5 MEQ/L (3.5-5.1); SODIUM LEVEL 134 MEQ/L (136-145)
[2021-12-07] MEDS ORDERED: GABAPENTIN 300 MG CAP PO ONE (07:50)
[2021-12-07] MEDS: MIDODRINE 5 MG TAB PO SCH ×3 (08:57→16:49)
[2021-12-07] MEDS: VANCOMYCIN HCL 750 MG, VIAL MATE ADAPTER 1 EACH in D5W 250 ML IV SCH ×2 (08:57→21:37)
[2021-12-07] MEDS: NICOTINE 21MG/24HR 1 EA TRANSDERMAL TD SCH (16:49)
[2021-12-07] MEDS: RAMELTEON 8 MG TAB (ROZEREM) PO PRN (20:41)
[2021-12-07] MEDS: OMEPRAZOLE 20MG CAP PO SCH (20:42)
[2021-12-07] MEDS: ATORVASTATIN 20 MG TAB PO SCH (20:42)
[2021-12-07] MEDS: POTASSIUM CHLORIDE 10MEQ SR TABLET PO SCH (20:42)
[2021-12-07] MEDS: APIXABAN 5 MG TAB (ELIQUIS) PO SCH (20:42)
[2021-12-07] MEDS: LEVOTHYROXINE 50MCG TABLET (0.05MG) PO SCH (20:42)
[2021-12-07] MEDS: METOPROLOL TART 50 MG TAB PO SCH (20:43)
[2021-12-07] MEDS: TORSEMIDE 20 MG TAB PO SCH (20:43)
[2021-12-07] MEDS: DIGOXIN 0.125 MG TAB PO SCH (20:43)
[2021-12-08] VITALS (8 sets, daily range): BP systolic 94–109; BP diastolic 54–77; O2SAT 95
[2021-12-08] MEDS: ACETAMINOPHEN 325 MG/10.15 ML UDC PO PRN ×3 (04:58→20:50)
[2021-12-08 07:26] LABS: BASO # 0.1 10^3/uL (0.0-0.2); EOS % 0.5 % (0.0-3.0); HEMATOCRIT 34.5 % (36.0-47.0); HEMOGLOBIN 10.6 g/dl (12.0-15.5); LYMPH # 1.5 10^3/uL (1.5-5.0); LYMPH % 18.3 % (24.0-44.0); MEAN CORPUSCULAR HEMOGLOBIN 32.9 pg (27.0-33.0); MEAN CORPUSCULAR HGB CONC 30.7 g/dl (32.0-36.5); MEAN CORPUSCULAR VOLUME 107.1 fl (80.0-96.0); MONO # 1.2 10^3/uL (0.0-0.8); MONO % 14.6 % (2.0-8.0); NEUTROPHILS # 5.2 10^3/uL (1.5-8.5); NEUTROPHILS % 65.2 % (36.0-66.0); PLATELET COUNT, AUTOMATED 250 10^3/uL (150-450); RED BLOOD COUNT 3.22 10^6/uL (4.00-5.40)
[2021-12-08 07:57] LABS: BLOOD UREA NITROGEN 16 MG/DL (7-18); CALCIUM LEVEL 7.6 MG/DL (8.8-10.2); CARBON DIOXIDE LEVEL 16 MEQ/L (21-32); CHLORIDE LEVEL 110 MEQ/L (98-107); CREATININE FOR GFR 0.68 MG/DL (0.55-1.30); GLOMERULAR FILTRATION RATE > 60.0 (>39); GLUCOSE, FASTING 77 MG/DL (70-100); POTASSIUM SERUM 3.7 MEQ/L (3.5-5.1); SODIUM LEVEL 135 MEQ/L (136-145)
[2021-12-08] MEDS: NICOTINE 21MG/24HR 1 EA TRANSDERMAL TD SCH (09:28)
[2021-12-08] MEDS: POLYVINYL ALCOHOL OPHTH SOLN 15 ML(LIQUITEARS) OU SCH ×4 (09:28→20:56)
[2021-12-08] MEDS: ACYCLOVIR 500 MG in D5W MINI-BAG PLUS 100 ML IV SCH (12:52)
[2021-12-08] MEDS ORDERED: LORazepam 2 MG TAB PO PRN (15:40)
[2021-12-08] MEDS: FOLIC ACID 1MG TAB PO SCH (16:08)
[2021-12-08] MEDS: MULTIVITAMINS/MINERALS THERAP 1 TAB PO SCH (16:08)
[2021-12-08] MEDS: THIAMINE 100 MG TAB PO SCH ×2 (16:08→20:51)
[2021-12-08] MEDS ORDERED: VANCOMYCIN HCL 500 MG in D5W MINI-BAG PLUS 100 ML IV SCH (17:00)
[2021-12-08] MEDS: LEVOTHYROXINE 50MCG TABLET (0.05MG) PO SCH (20:51)
[2021-12-08] MEDS: APIXABAN 5 MG TAB (ELIQUIS) PO SCH (20:51)
[2021-12-08] MEDS: CEFUROXIME 500 MG TAB PO SCH (20:51)
[2021-12-08] MEDS: OMEPRAZOLE 20MG CAP PO SCH (20:51)
[2021-12-08] MEDS: POTASSIUM CHLORIDE 10MEQ SR TABLET PO SCH (20:51)
[2021-12-08] MEDS: DIGOXIN 0.125 MG TAB PO SCH (20:51)
[2021-12-08] MEDS: RAMELTEON 8 MG TAB (ROZEREM) PO PRN (20:51)
[2021-12-08] MEDS: ATORVASTATIN 20 MG TAB PO SCH (20:52)
[2021-12-09] VITALS (7 sets, daily range): BP systolic 93–111; BP diastolic 55–70; O2SAT 95
[2021-12-09] MEDS: ACYCLOVIR 500 MG in D5W MINI-BAG PLUS 100 ML IV SCH ×2 (00:08→12:50)
[2021-12-09 07:21] LABS: BASO # 0.1 10^3/uL (0.0-0.2); BASO % 0.9 % (0.0-1.0); EOS % 0.5 % (0.0-3.0); HEMATOCRIT 36.2 % (36.0-47.0); HEMOGLOBIN 11.5 g/dl (12.0-15.5); LYMPH # 1.1 10^3/uL (1.5-5.0); LYMPH % 17.6 % (24.0-44.0); MEAN CORPUSCULAR HEMOGLOBIN 33.2 pg (27.0-33.0); MEAN CORPUSCULAR HGB CONC 31.8 g/dl (32.0-36.5); MEAN CORPUSCULAR VOLUME 104.6 fl (80.0-96.0); MONO # 0.7 10^3/uL (0.0-0.8); NEUTROPHILS # 4.5 10^3/uL (1.5-8.5); NEUTROPHILS % 69.5 % (36.0-66.0); PLATELET COUNT, AUTOMATED 268 10^3/uL (150-450); RED BLOOD COUNT 3.46 10^6/uL (4.00-5.40); WHITE BLOOD COUNT 6.4 10^3/uL (4.0-10.0)
[2021-12-09 07:57] LABS: BLOOD UREA NITROGEN 15 MG/DL (7-18); CALCIUM LEVEL 7.9 MG/DL (8.8-10.2); CARBON DIOXIDE LEVEL 21 MEQ/L (21-32); CHLORIDE LEVEL 112 MEQ/L (98-107); CREATININE FOR GFR 0.64 MG/DL (0.55-1.30); GLOMERULAR FILTRATION RATE > 60.0 (>39); GLUCOSE, FASTING 80 MG/DL (70-100); POTASSIUM SERUM 3.8 MEQ/L (3.5-5.1); SODIUM LEVEL 139 MEQ/L (136-145)
[2021-12-09] MEDS: THIAMINE 100 MG TAB PO SCH (09:11)
[2021-12-09] MEDS: MULTIVITAMINS/MINERALS THERAP 1 TAB PO SCH (09:11)
[2021-12-09] MEDS: CEFUROXIME 500 MG TAB PO SCH (09:12)
[2021-12-09] MEDS: NICOTINE 21MG/24HR 1 EA TRANSDERMAL TD SCH (09:12)
[2021-12-09] MEDS: FOLIC ACID 1MG TAB PO SCH (09:12)
[2021-12-09] MEDS: POLYVINYL ALCOHOL OPHTH SOLN 15 ML(LIQUITEARS) OU SCH ×2 (09:12→12:50)
[2021-12-09] MEDS: ACETAMINOPHEN 325 MG/10.15 ML UDC PO PRN (12:52)
[2021-12-09] MEDS ORDERED: VALA1TAB5 PO (16:43)
[2021-12-09] MEDS ORDERED: VITMTA PO (16:43)
[2021-12-09] MEDS ORDERED: CEFU50TA PO (16:43)
[2021-12-09] MEDS ORDERED: ERYT5OIN25 OS (16:48)
[2021-12-09] MEDS ORDERED: PROB1CAP10 PO (17:00)
[2021-12-09] MEDS ORDERED: METO1TAB87 PO (17:01)
[2021-12-09] MEDS ORDERED: TORS20TA2 PO (17:35)
[2021-12-09] MEDS ORDERED: FLUC150T9 PO (17:35)
[2021-12-09] MEDS ORDERED: ACET-1415 PO (17:36)
[2021-12-09] MEDS ORDERED: ACYCLOVIR 200 MG CAPSULE PO SCH (21:00)
[2021-12-10] MEDS ORDERED: FLUBLOK(EGG FREE)(QUAD)INFLUENZA VACC 0.5ML SYRINGE 18YRS & OLDER IM.IMMUN ONE (09:00)
== END 2021-12-09 17:50 | disposition home or self-care (01) | DRG 603 ==
LOC: M ED 08:29 → M ED INP 16:17 → M MS5PR 19:45
PROVIDERS: ADMIT General Practice; ATTEND Internal Medicine
DX: L03.213 Periorbital cellulitis (principal); I48.20 Chronic atrial fibrillation, unspecified; I50.32 Chronic diastolic (congestive) heart failure; B02.30 Zoster ocular disease, unspecified; E46 Unspecified protein-calorie malnutrition; F10.939 Alcohol use, unspecified with withdrawal, unspecified; L03.211 Cellulitis of face; M79.2 Neuralgia and neuritis, unspecified; F17.210 Nicotine dependence, cigarettes, uncomplicated; J44.9 Chronic obstructive pulmonary disease, unspecified; F32.A Depression, unspecified; K21.9 Gastro-esophageal reflux disease without esophagitis; E03.9 Hypothyroidism, unspecified; I11.0 Hypertensive heart disease with heart failure; Z88.8 Allergy status to other drugs, medicaments and biological substances; Z88.5 Allergy status to narcotic agent; Z79.899 Other long term (current) drug therapy; Z85.828 Personal history of other malignant neoplasm of skin; I95.2 Hypotension due to drugs

== ENCOUNTER 2022-01-01 16:28 | Inpatient (IN) | payer MEDICARE ==
[~2022-01-01] VITALS: Ht 160 cm; Wt 52.1 kg
[~2022-01-01 16:28] MED LIST changes: +ALBU6.7H6 INH; +AMOX875T2 PO; +CEFU50TA PO; +ERYT5OIN25 OS; +FLUC150T9 PO; +OMEP40CA5 PO; +PANT40TA29 PO; +PROB1CAP10 PO; +VALA1TAB5 PO; +VALT1TAB PO; +VIT1TABL25 PO
[2022-01-01 21:50] LABS: BASO # 0.1 10^3/uL (0.0-0.2); EOS # 0.1 10^3/uL (0.0-0.5); EOS % 0.7 % (0.0-3.0); HEMATOCRIT 34.2 % (36.0-47.0); HEMOGLOBIN 11.2 g/dl (12.0-15.5); LYMPH # 1.7 10^3/uL (1.5-5.0); LYMPH % 21.4 % (24.0-44.0); MEAN CORPUSCULAR HEMOGLOBIN 33.7 pg (27.0-33.0); MEAN CORPUSCULAR HGB CONC 32.7 g/dl (32.0-36.5); MONO # 0.9 10^3/uL (0.0-0.8); MONO % 10.5 % (2.0-8.0); NEUTROPHILS # 5.3 10^3/uL (1.5-8.5); PLATELET COUNT, AUTOMATED 359 10^3/uL (150-450); RED BLOOD COUNT 3.32 10^6/uL (4.00-5.40); WHITE BLOOD COUNT 8.1 10^3/uL (4.0-10.0)
[2022-01-01 22:29] LABS: RSV AMPLIFICATION NEGATIVE (NEGATIVE)
[2022-01-01 22:41] LABS: ACETAMINOPHEN LEVEL < 2.0 UG/ML (10.0-20.0); ALBUMIN 2.1 G/DL (3.2-5.2); ALKALINE PHOSPHATASE 308 U/L (46-116); ALT/SGPT 66 U/L (7.0-40); AST/SGOT 117 U/L (<34); BILIRUBIN,DIRECT < 0.1 MG/DL (<0.4); BILIRUBIN,TOTAL 0.2 MG/DL (0.3-1.2); BLOOD UREA NITROGEN 14 MG/DL (9-23); CARBON DIOXIDE LEVEL 26 MMOL/L (20-31); CHLORIDE LEVEL 107 MMOL/L (98-107); CREATININE FOR GFR 0.48 MG/DL (0.55-1.30); DIGOXIN LEVEL 0.6 NG/ML (0.8-2.0); ETHYL ALCOHOL (ETHANOL) 0.003 % (0.000-0.010); GLOMERULAR FILTRATION RATE > 60.0 (>39); GLUCOSE, FASTING 97 MG/DL (74-106); POTASSIUM SERUM 4.1 MMOL/L (3.5-5.1); SALICYLATE LEVEL < 3.0 MG/DL (<30); SODIUM LEVEL 141 MMOL/L (136-145); THYROID STIMULATING HORMONE 44.484 uIU/ML (0.55-4.78)
[2022-01-01] MEDS ORDERED: MED REC COMMENT (23:41)
[2022-01-01] MEDS ORDERED: HOME MED LIST COMPLETE! XX SCH (23:55)
[2022-01-02] VITALS (10 sets, daily range): BP systolic 130–174; BP diastolic 69–84
[2022-01-02] MEDS ORDERED: NS 1,000 ML IV ONE (00:10)
[2022-01-02] MEDS ORDERED: CIPROFLOXACIN 400 MG in IV 1 EA IV ONE (00:10)
[2022-01-02 00:13] LABS: FREE T4 0.43 NG/DL (0.89-1.76)
[2022-01-02] MEDS ORDERED: ACETAMINOPHEN TAB 650MG DOSE (2X325MG) PO PRN (00:40)
[2022-01-02] MEDS ORDERED: ALBUTEROL SULFATE 2.5 MG/0.5 ML INH NEB SOLN NEB PRN (01:45)
[2022-01-02] MEDS ORDERED: IPRATROPIUM 0.5MG/ALBUTEROL 2.5MG INH SOL UD 3ML (DUONEB) NEB SCH (02:00)
[2022-01-02] MEDS ORDERED: LEVOTHYROXINE 50MCG TABLET (0.05MG) PO SCH (02:06)
[2022-01-02] MEDS: cefTRIAXone SOD 1 GM in D5W MINI-BAG PLUS 50 ML IV SCH (03:03)
[2022-01-02] MEDS: DIGOXIN 0.125 MG TAB PO SCH ×2 (03:06→21:17)
[2022-01-02] MEDS: LACTULOSE 20 GM/30 ML SYRUP UD PO SCH ×4 (03:06→17:11)
[2022-01-02] MEDS: LORazepam 2 MG TAB PO PRN ×2 (03:23→23:01)
[2022-01-02] MEDS ORDERED: LEVALBUTEROL 1.25 MG/0.5 ML CONCENTRATE NEB NEB PRN (04:00)
[2022-01-02 05:06] LABS: VITAMIN B12 LEVEL 387 PG/ML (211-911)
[2022-01-02 05:32] LABS: HEMATOCRIT 32.6 % (36.0-47.0)
[2022-01-02] MEDS ORDERED: NS 1,000 ML IV SCH (06:15)
[2022-01-02] MEDS: LEVALBUTEROL 1.25 MG/0.5 ML CONCENTRATE NEB INH SCH ×2 (07:15→13:55)
[2022-01-02 08:19] LABS: BASO # 0.1 10^3/uL (0.0-0.2); BASO % 0.8 % (0.0-1.0); EOS # 0.1 10^3/uL (0.0-0.5); HEMATOCRIT 36.5 % (36.0-47.0); HEMOGLOBIN 11.5 g/dl (12.0-15.5); LYMPH # 1.7 10^3/uL (1.5-5.0); LYMPH % 23.6 % (24.0-44.0); MEAN CORPUSCULAR HGB CONC 31.5 g/dl (32.0-36.5); MEAN CORPUSCULAR VOLUME 104.9 fl (80.0-96.0); MONO # 0.7 10^3/uL (0.0-0.8); NEUTROPHILS # 4.6 10^3/uL (1.5-8.5); NEUTROPHILS % 64.3 % (36.0-66.0); PLATELET COUNT, AUTOMATED 314 10^3/uL (150-450); RED BLOOD COUNT 3.48 10^6/uL (4.00-5.40); WHITE BLOOD COUNT 7.2 10^3/uL (4.0-10.0)
[2022-01-02 08:48] LABS: ALBUMIN 2.2 G/DL (3.2-5.2); ALKALINE PHOSPHATASE 304 U/L (46-116); ALT/SGPT 65 U/L (7.0-40); AST/SGOT 102 U/L (<34); BILIRUBIN,TOTAL 0.3 MG/DL (0.3-1.2); BLOOD UREA NITROGEN 12 MG/DL (9-23); CALCIUM LEVEL 8.3 MG/DL (8.3-10.6); CARBON DIOXIDE LEVEL 28 MMOL/L (20-31); CHLORIDE LEVEL 103 MMOL/L (98-107); CREATININE FOR GFR 0.45 MG/DL (0.55-1.30); GLOMERULAR FILTRATION RATE > 60.0 (>39); GLUCOSE, FASTING 96 MG/DL (74-106); POTASSIUM SERUM 3.8 MMOL/L (3.5-5.1); SODIUM LEVEL 142 MMOL/L (136-145); TOTAL PROTEIN 5.1 G/DL (5.7-8.2)
[2022-01-02] MEDS: PANTOPRAZOLE 40MG TAB (PROTONIX) PO SCH (08:50)
[2022-01-02] MEDS: FOLIC ACID 1MG TAB PO SCH (08:50)
[2022-01-02] MEDS: NICOTINE 21MG/24HR 1 EA TRANSDERMAL TD SCH (08:51)
[2022-01-02] MEDS: MULTIVITAMINS/MINERALS THERAP 1 TAB PO SCH (08:51)
[2022-01-02] MEDS: THIAMINE 100 MG TAB PO SCH ×2 (08:51→21:18)
[2022-01-02] MEDS: METOPROLOL TART 25 MG TABLET PO SCH ×2 (09:36→21:18)
[2022-01-02] MEDS: APIXABAN 5 MG TAB (ELIQUIS) PO SCH ×2 (09:38→21:18)
[2022-01-02] MEDS ORDERED: LEVOTHYROXINE 25MCG TABLET (0.025MG) PO STA (10:08)
[2022-01-02] MEDS ORDERED: TORSEMIDE 20 MG TAB PO SCH (21:00)
[2022-01-02] MEDS ORDERED: METOPROLOL TART 25 MG TABLET PO SCH (21:00)
[2022-01-02] MEDS ORDERED: APIXABAN 5 MG TAB (ELIQUIS) PO SCH (21:00)
[2022-01-02] MEDS: ATORVASTATIN 20 MG TAB PO SCH (21:17)
[2022-01-02] MEDS ORDERED: KETOROLAC TROMETHAMINE 10 MG TAB PO ONE (21:55)
[2022-01-02] MEDS: LEVALBUTEROL 1.25 MG/0.5 ML CONCENTRATE NEB INH PRN (22:07)
[2022-01-03] VITALS (10 sets, daily range): BP systolic 150–177; BP diastolic 70–87
[2022-01-03] MEDS: cefTRIAXone SOD 1 GM in D5W MINI-BAG PLUS 50 ML IV SCH (01:56)
[2022-01-03] MEDS: LEVOTHYROXINE 75MCG TABLET (0.075MG) PO SCH (05:42)
[2022-01-03 05:59] LABS: HEMATOCRIT 32.2 % (36.0-47.0); HEMOGLOBIN 10.3 g/dl (12.0-15.5); MEAN CORPUSCULAR HEMOGLOBIN 33.9 pg (27.0-33.0); MEAN CORPUSCULAR VOLUME 105.9 fl (80.0-96.0); PLATELET COUNT, AUTOMATED 287 10^3/uL (150-450); RED BLOOD COUNT 3.04 10^6/uL (4.00-5.40); WHITE BLOOD COUNT 8.8 10^3/uL (4.0-10.0)
[2022-01-03] MEDS ORDERED: LEVOTHYROXINE 50MCG TABLET (0.05MG) PO SCH (06:00)
[2022-01-03 06:46] LABS: ALBUMIN 1.9 G/DL (3.2-5.2); ALKALINE PHOSPHATASE 285 U/L (46-116); ALT/SGPT 53 U/L (7.0-40); AST/SGOT 70 U/L (<34); BILIRUBIN,TOTAL < 0.2 MG/DL (0.3-1.2); BLOOD UREA NITROGEN 14 MG/DL (9-23); CALCIUM LEVEL 8.4 MG/DL (8.3-10.6); CARBON DIOXIDE LEVEL 25 MMOL/L (20-31); CHLORIDE LEVEL 109 MMOL/L (98-107); CREATININE FOR GFR 0.61 MG/DL (0.55-1.30); GLOMERULAR FILTRATION RATE > 60.0 (>39); GLUCOSE, FASTING 91 MG/DL (74-106); MAGNESIUM LEVEL 1.3 MG/DL (1.8-2.4); POTASSIUM SERUM 3.8 MMOL/L (3.5-5.1); SODIUM LEVEL 143 MMOL/L (136-145); TOTAL PROTEIN 4.5 G/DL (5.7-8.2)
[2022-01-03] MEDS: APIXABAN 5 MG TAB (ELIQUIS) PO SCH ×2 (07:54→20:06)
[2022-01-03] MEDS: FOLIC ACID 1MG TAB PO SCH (07:54)
[2022-01-03] MEDS: MAG SULF 1GM/100ML (MAG RUN) 1 GM in IV 1 EA IV SCH ×4 (07:54→14:02)
[2022-01-03] MEDS: THIAMINE 100 MG TAB PO SCH ×2 (07:55→20:07)
[2022-01-03] MEDS: METOPROLOL TART 25 MG TABLET PO SCH ×2 (07:55→20:07)
[2022-01-03] MEDS: MULTIVITAMINS/MINERALS THERAP 1 TAB PO SCH (07:55)
[2022-01-03] MEDS: PANTOPRAZOLE 40MG TAB (PROTONIX) PO SCH (07:55)
[2022-01-03] MEDS: amLODIPine 5 MG TAB PO SCH (07:55)
[2022-01-03] MEDS: NICOTINE 21MG/24HR 1 EA TRANSDERMAL TD SCH (07:56)
[2022-01-03] MEDS ORDERED: FLUBLOK(EGG FREE)(QUAD)INFLUENZA VACC 0.5ML SYRINGE 18YRS & OLDER IM.IMMUN ONE (09:00)
[2022-01-03] MEDS: LACTULOSE 20 GM/30 ML SYRUP UD PO SCH ×3 (11:04→20:06)
[2022-01-03] MEDS: TIOTROPIUM INHALER/CAPSULE (SPIRIVA) INH SCH (11:09)
[2022-01-03] MEDS: LEVALBUTEROL 1.25 MG/0.5 ML CONCENTRATE NEB INH PRN (11:10)
[2022-01-03] MEDS: ACETAMINOPHEN 500 MG TAB PO PRN (14:47)
[2022-01-03] MEDS ORDERED: OXAZEPAM 15MG CAP PO ONE (19:00)
[2022-01-03] MEDS ORDERED: KETOROLAC 30 MG/ML 1ML VIAL IV ONE (19:00)
[2022-01-03] MEDS: CEFDINIR 300 MG CAP (OMNICEF) PO SCH (20:06)
[2022-01-03] MEDS: ATORVASTATIN 20 MG TAB PO SCH (20:06)
[2022-01-03] MEDS: DIGOXIN 0.125 MG TAB PO SCH (20:10)
[2022-01-03] MEDS: LEVALBUTEROL 1.25 MG/0.5 ML CONCENTRATE NEB INH SCH (21:02)
[2022-01-04] MEDS: guaiFENesin DM LIQ 10ML UD PO PRN ×2 (01:58→22:05)
[2022-01-04] MEDS: LEVALBUTEROL 1.25 MG/0.5 ML CONCENTRATE NEB INH SCH ×4 (02:06→19:48)
[2022-01-04 04:00] VITALS: BP 141/74
[2022-01-04] MEDS ORDERED: KETOROLAC 30 MG/ML 1ML VIAL IV ONE (04:40)
[2022-01-04 05:35] LABS: HEMATOCRIT 33.9 % (36.0-47.0); HEMOGLOBIN 10.7 g/dl (12.0-15.5); MEAN CORPUSCULAR HEMOGLOBIN 33.6 pg (27.0-33.0); MEAN CORPUSCULAR HGB CONC 31.6 g/dl (32.0-36.5); MEAN CORPUSCULAR VOLUME 106.6 fl (80.0-96.0); PLATELET COUNT, AUTOMATED 267 10^3/uL (150-450); RED BLOOD COUNT 3.18 10^6/uL (4.00-5.40); WHITE BLOOD COUNT 14.7 10^3/uL (4.0-10.0)
[2022-01-04] MEDS: LEVOTHYROXINE 75MCG TABLET (0.075MG) PO SCH (05:45)
[2022-01-04] MEDS: TIOTROPIUM INHALER/CAPSULE (SPIRIVA) INH SCH (07:09)
[2022-01-04 07:35] LABS: ALBUMIN 1.9 G/DL (3.2-5.2); ALKALINE PHOSPHATASE 254 U/L (46-116); ALT/SGPT 58 U/L (7.0-40); AST/SGOT 78 U/L (<34); BILIRUBIN,TOTAL 0.3 MG/DL (0.3-1.2); BLOOD UREA NITROGEN 13 MG/DL (9-23); CALCIUM LEVEL 8.3 MG/DL (8.3-10.6); CARBON DIOXIDE LEVEL 25 MMOL/L (20-31); CHLORIDE LEVEL 105 MMOL/L (98-107); CREATININE FOR GFR 0.45 MG/DL (0.55-1.30); GLOMERULAR FILTRATION RATE > 60.0 (>39); GLUCOSE, FASTING 116 MG/DL (74-106); POTASSIUM SERUM 4.4 MMOL/L (3.5-5.1); SODIUM LEVEL 139 MMOL/L (136-145); TOTAL PROTEIN 4.7 G/DL (5.7-8.2)
[2022-01-04 07:43] VITALS: BP 149/76
[2022-01-04 08:00] VITALS: BP 149/76
[2022-01-04] MEDS: LACTULOSE 20 GM/30 ML SYRUP UD PO SCH ×2 (09:00→20:51)
[2022-01-04] MEDS ORDERED: AZITHROMYCIN 250MG TABLET PO SCH (09:00)
[2022-01-04] MEDS: FOLIC ACID 1MG TAB PO SCH (09:50)
[2022-01-04] MEDS: METOPROLOL TART 25 MG TABLET PO SCH ×2 (09:51→20:54)
[2022-01-04] MEDS: CEFDINIR 300 MG CAP (OMNICEF) PO SCH (09:51)
[2022-01-04] MEDS: MULTIVITAMINS/MINERALS THERAP 1 TAB PO SCH (09:51)
[2022-01-04] MEDS: amLODIPine 5 MG TAB PO SCH (09:51)
[2022-01-04] MEDS: PANTOPRAZOLE 40MG TAB (PROTONIX) PO SCH (09:52)
[2022-01-04] MEDS: APIXABAN 5 MG TAB (ELIQUIS) PO SCH ×2 (09:52→20:54)
[2022-01-04] MEDS: THIAMINE 100 MG TAB PO SCH ×2 (09:52→20:54)
[2022-01-04] MEDS: TORSEMIDE 20 MG TAB PO SCH (09:53)
[2022-01-04] MEDS: NICOTINE 21MG/24HR 1 EA TRANSDERMAL TD SCH (09:54)
[2022-01-04] MEDS: ACETAMINOPHEN 500 MG TAB PO PRN ×2 (10:08→18:33)
[2022-01-04] MEDS ORDERED: IPRATROPIUM 0.02% SOLN 0.5MG 2.5ML NEB INH PRN (10:15)
[2022-01-04] MEDS: predniSONE 20 MG TAB PO SCH (11:03)
[2022-01-04 15:52] VITALS: BP 123/63
[2022-01-04 16:00] VITALS: BP 123/63
[2022-01-04] MEDS ORDERED: VANCOMYCIN HCL 1,000 MG, VIAL MATE ADAPTER 1 EACH in D5W 250 ML IV ONE ×2 (18:00→19:00)
[2022-01-04] MEDS: CEFEPIME HCL 2 GM in D5W MINI-BAG PLUS 50 ML IV SCH (18:33)
[2022-01-04 19:50] VITALS: BP 127/66
[2022-01-04] MEDS: ATORVASTATIN 20 MG TAB PO SCH (20:54)
[2022-01-04] MEDS: DIGOXIN 0.125 MG TAB PO SCH (20:55)
[2022-01-04] MEDS ORDERED: OXAZEPAM 15MG CAP PO ONE (21:35)
[2022-01-05] MEDS: CEFEPIME HCL 2 GM in D5W MINI-BAG PLUS 50 ML IV SCH ×2 (03:15→09:13)
[2022-01-05] MEDS: LEVALBUTEROL 1.25 MG/0.5 ML CONCENTRATE NEB INH SCH ×4 (03:22→20:51)
[2022-01-05 04:00] VITALS: BP 130/69
[2022-01-05 05:54] LABS: HEMATOCRIT 30.6 % (36.0-47.0); HEMOGLOBIN 9.5 g/dl (12.0-15.5); MEAN CORPUSCULAR HEMOGLOBIN 32.9 pg (27.0-33.0); MEAN CORPUSCULAR VOLUME 105.9 fl (80.0-96.0); PLATELET COUNT, AUTOMATED 214 10^3/uL (150-450); RED BLOOD COUNT 2.89 10^6/uL (4.00-5.40); WHITE BLOOD COUNT 12.4 10^3/uL (4.0-10.0)
[2022-01-05 06:18] LABS: CHLORIDE LEVEL 105 MMOL/L (98-107); POTASSIUM SERUM 5.1 MMOL/L (3.5-5.1); SODIUM LEVEL 139 MMOL/L (136-145)
[2022-01-05 06:19] LABS: ALBUMIN 1.9 G/DL (3.2-5.2); CARBON DIOXIDE LEVEL 26 MMOL/L (20-31)
[2022-01-05 06:23] LABS: BLOOD UREA NITROGEN 18 MG/DL (9-23)
[2022-01-05 06:24] LABS: ALKALINE PHOSPHATASE 252 U/L (46-116); CALCIUM LEVEL 8.4 MG/DL (8.3-10.6); GLUCOSE, FASTING 114 MG/DL (74-106)
[2022-01-05 06:25] LABS: BILIRUBIN,TOTAL 0.2 MG/DL (0.3-1.2); MAGNESIUM LEVEL 1.9 MG/DL (1.8-2.4); TOTAL PROTEIN 4.9 G/DL (5.7-8.2)
[2022-01-05 06:26] LABS: ALT/SGPT 50 U/L (7.0-40); AST/SGOT 45 U/L (<34); CREATININE FOR GFR 0.43 MG/DL (0.55-1.30); GLOMERULAR FILTRATION RATE > 60.0 (>39)
[2022-01-05] MEDS ORDERED: VANCOMYCIN HCL 750 MG, VIAL MATE ADAPTER 1 EACH in D5W 250 ML IV SCH (07:00)
[2022-01-05 08:00] VITALS: BP 125/74
[2022-01-05 08:06] VITALS: BP 125/74
[2022-01-05] MEDS: LIDOCAINE 5% (LIDODERM) PATCH TD SCH (09:00)
[2022-01-05] MEDS: LACTULOSE 20 GM/30 ML SYRUP UD PO SCH ×2 (09:00→21:00)
[2022-01-05] MEDS ORDERED: LEVOTHYROXINE 100MCG (0.1MG) 5ML SDV PF (SOLUTION FORM) IV SCH (09:00)
[2022-01-05] MEDS: FOLIC ACID 1MG TAB PO SCH (09:09)
[2022-01-05] MEDS: TORSEMIDE 20 MG TAB PO SCH (09:10)
[2022-01-05] MEDS: predniSONE 20 MG TAB PO SCH (09:10)
[2022-01-05] MEDS: APIXABAN 5 MG TAB (ELIQUIS) PO SCH ×2 (09:10→21:48)
[2022-01-05] MEDS: PANTOPRAZOLE 40MG TAB (PROTONIX) PO SCH (09:10)
[2022-01-05] MEDS: ACETAMINOPHEN 500 MG TAB PO PRN ×2 (09:11→17:19)
[2022-01-05] MEDS: MULTIVITAMINS/MINERALS THERAP 1 TAB PO SCH (09:11)
[2022-01-05] MEDS: METOPROLOL TART 25 MG TABLET PO SCH ×2 (09:11→21:49)
[2022-01-05] MEDS: amLODIPine 5 MG TAB PO SCH (09:12)
[2022-01-05] MEDS: NICOTINE 21MG/24HR 1 EA TRANSDERMAL TD SCH (09:13)
[2022-01-05] MEDS: LevoFLOXacin 750 MG TABLET PO SCH (10:34)
[2022-01-05] MEDS ORDERED: VITMTA PO (10:44)
[2022-01-05] MEDS ORDERED: FOLI1TAB11 PO (10:44)
[2022-01-05] MEDS ORDERED: PRED10TA2 PO (10:44)
[2022-01-05] MEDS ORDERED: LEVO1TAB40 PO (10:44)
[2022-01-05] MEDS ORDERED: LEVO75TA4 PO (10:44)
[2022-01-05] MEDS ORDERED: AMLO1TAB24 PO (10:44)
[2022-01-05 11:58] VITALS: BP 133/75
[2022-01-05 12:00] VITALS: BP 133/75
[2022-01-05] MEDS ORDERED: LORazepam 2 MG/ML VIAL IV PRN (14:55)
[2022-01-05 20:13] VITALS: BP 118/56
[2022-01-05] MEDS: ATORVASTATIN 20 MG TAB PO SCH (21:48)
[2022-01-05] MEDS: DIGOXIN 0.125 MG TAB PO SCH (21:48)
[2022-01-05] MEDS ORDERED: OXAZEPAM 15MG CAP PO ONE (22:10)
[2022-01-06] MEDS: LEVALBUTEROL 1.25 MG/0.5 ML CONCENTRATE NEB INH SCH ×3 (02:26→14:00)
[2022-01-06 05:13] LABS: HEMATOCRIT 29.5 % (36.0-47.0); HEMOGLOBIN 9.2 g/dl (12.0-15.5); MEAN CORPUSCULAR HEMOGLOBIN 33.3 pg (27.0-33.0); MEAN CORPUSCULAR HGB CONC 31.2 g/dl (32.0-36.5); MEAN CORPUSCULAR VOLUME 106.9 fl (80.0-96.0); RED BLOOD COUNT 2.76 10^6/uL (4.00-5.40); WHITE BLOOD COUNT 11.1 10^3/uL (4.0-10.0)
[2022-01-06 05:14] LABS: BASO % 0.1 % (0.0-1.0); EOS % 0.1 % (0.0-3.0); LYMPH % 8.8 % (24.0-44.0); MONO # 1.4 10^3/uL (0.0-0.8); MONO % 12.9 % (2.0-8.0); NEUTROPHILS # 8.6 10^3/uL (1.5-8.5); NEUTROPHILS % 77.4 % (36.0-66.0); PLATELET COUNT, AUTOMATED 275 10^3/uL (150-450)
[2022-01-06 05:34] LABS: CHLORIDE LEVEL 106 MMOL/L (98-107); POTASSIUM SERUM 4.6 MMOL/L (3.5-5.1); SODIUM LEVEL 140 MMOL/L (136-145)
[2022-01-06 05:35] LABS: ALBUMIN 1.9 G/DL (3.2-5.2); CARBON DIOXIDE LEVEL 28 MMOL/L (20-31)
[2022-01-06 05:38] LABS: CALCIUM LEVEL 8.5 MG/DL (8.3-10.6); GLUCOSE, FASTING 123 MG/DL (74-106)
[2022-01-06 05:40] LABS: BLOOD UREA NITROGEN 22 MG/DL (9-23); GLOMERULAR FILTRATION RATE > 60.0 (>39)
[2022-01-06 05:41] LABS: ALKALINE PHOSPHATASE 226 U/L (46-116)
[2022-01-06 05:42] LABS: ALT/SGPT 45 U/L (7.0-40); AST/SGOT 40 U/L (<34); BILIRUBIN,TOTAL < 0.2 MG/DL (0.3-1.2)
[2022-01-06] MEDS: LevoFLOXacin 750 MG TABLET PO SCH (05:53)
[2022-01-06] MEDS: guaiFENesin DM LIQ 10ML UD PO PRN (05:59)
[2022-01-06] MEDS ORDERED: LEVOTHYROXINE 75MCG TABLET (0.075MG) PO SCH (06:00)
[2022-01-06] MEDS: LACTULOSE 20 GM/30 ML SYRUP UD PO SCH (09:00)
[2022-01-06] MEDS: LIDOCAINE 5% (LIDODERM) PATCH TD SCH (09:00)
[2022-01-06 09:13] VITALS: BP 122/58
[2022-01-06] MEDS: predniSONE 20 MG TAB PO SCH (09:15)
[2022-01-06] MEDS: TORSEMIDE 20 MG TAB PO SCH (09:15)
[2022-01-06] MEDS: PANTOPRAZOLE 40MG TAB (PROTONIX) PO SCH (09:15)
[2022-01-06] MEDS: MULTIVITAMINS/MINERALS THERAP 1 TAB PO SCH (09:15)
[2022-01-06 09:16] VITALS: BP 122/58
[2022-01-06] MEDS: amLODIPine 5 MG TAB PO SCH (09:16)
[2022-01-06] MEDS: FOLIC ACID 1MG TAB PO SCH (09:16)
[2022-01-06] MEDS: METOPROLOL TART 25 MG TABLET PO SCH (09:16)
[2022-01-06] MEDS: NICOTINE 21MG/24HR 1 EA TRANSDERMAL TD SCH (09:17)
[2022-01-06 10:45] LABS: HEMATOCRIT 33.1 % (36.0-47.0); HEMOGLOBIN 10.2 g/dl (12.0-15.5)
[2022-01-06 12:10] LABS: HEMATOCRIT 31.9 % (36.0-47.0); HEMOGLOBIN 9.8 g/dl (12.0-15.5)
[2022-01-08] MEDS ORDERED: LACT20EL PO (09:46)
== END 2022-01-06 14:45 | disposition home or self-care (01) | DRG 689 ==
LOC: M ED 16:28 → M ED INP 23:54 → M PCU 01-02 01:30
PROVIDERS: ADMIT Family Medicine; ATTEND Family Medicine
DX: N39.0 Urinary tract infection, site not specified (principal); G93.41 Metabolic encephalopathy; J18.9 Pneumonia, unspecified organism; J44.0 Chronic obstructive pulmonary disease with (acute) lower respiratory infection; J44.1 Chronic obstructive pulmonary disease with (acute) exacerbation; J91.8 Pleural effusion in other conditions classified elsewhere; B96.20 Unspecified Escherichia coli [E. coli] as the cause of diseases classified elsewhere; Z66 Do not resuscitate; Z79.01 Long term (current) use of anticoagulants; I10 Essential (primary) hypertension; F17.210 Nicotine dependence, cigarettes, uncomplicated; F10.10 Alcohol abuse, uncomplicated; E03.9 Hypothyroidism, unspecified; I27.29 Other secondary pulmonary hypertension; M19.90 Unspecified osteoarthritis, unspecified site; K21.9 Gastro-esophageal reflux disease without esophagitis; Z85.828 Personal history of other malignant neoplasm of skin; Z90.79 Acquired absence of other genital organ(s); R74.01 Elevation of levels of liver transaminase levels; D53.9 Nutritional anemia, unspecified; Z71.6 Tobacco abuse counseling; Z20.822 Contact with and (suspected) exposure to COVID-19; Z79.890 Hormone replacement therapy; Z79.899 Other long term (current) drug therapy; Z88.1 Allergy status to other antibiotic agents; Z88.5 Allergy status to narcotic agent; Z88.8 Allergy status to other drugs, medicaments and biological substances; R13.10 Dysphagia, unspecified; E83.42 Hypomagnesemia; I48.0 Paroxysmal atrial fibrillation; Z91.81 History of falling; K72.90 Hepatic failure, unspecified without coma

== ENCOUNTER → 2022-01-20 | Outpatient (CLI) | payer MEDICARE ==
[~2022-01-20] MED LIST changes: +LACT20EL PO; +LEVO75TA4 PO; +MED REC COMMENT
== END ==
LOC: M WHC 14:03
PROVIDERS: ATTEND Family Medicine
DX: M79.89 Other specified soft tissue disorders (principal)

== ENCOUNTER → 2022-01-20 | Outpatient (CLI) | payer MEDICARE ==
[2022-01-20 17:33] LABS: APPEARANCE, URINE MANUAL CLEAR (CLEAR); BILIRUBIN, URINE MANUAL NEGATIVE (NEGATIVE); BLOOD URINE MANUAL POSITIVE (NEGATIVE); COLOR, URINE MANUAL YELLOW (YELLOW); GLUCOSE, URINE (UA) MANUAL NEGATIVE (NEGATIVE); KETONE, URINE MANUAL NEGATIVE (NEGATIVE); LEUKOCYTE ESTERASE, URINE MAN POSITIVE (NEGATIVE); NITRITE, URINE MANUAL NEGATIVE (NEGATIVE); PROTEIN, URINE MANUAL NEGATIVE (NEGATIVE); UROBILINOGEN, URINE MANUAL NORMAL (NORMAL)
[2022-01-20 17:44] LABS: BLOOD UREA NITROGEN 13 MG/DL (9-23); CALCIUM LEVEL 9.1 MG/DL (8.3-10.6); CARBON DIOXIDE LEVEL 28 MMOL/L (20-31); CHLORIDE LEVEL 101 MMOL/L (98-107); CREATININE FOR GFR 0.46 MG/DL (0.55-1.30); GLOMERULAR FILTRATION RATE > 60.0 (>39); GLUCOSE, FASTING 75 MG/DL (74-106); POTASSIUM SERUM 4.6 MMOL/L (3.5-5.1); SODIUM LEVEL 138 MMOL/L (136-145)
[2022-01-20 17:49] LABS: BACTERIA, URINE NONE SEEN; HYALINE CAST, URINE NONE SEEN /lpf (0-1); RBC, URINE 0-1 /hpf (0-3); SQUAMOUS EPITHELIAL CELL URINE SMALL AMOUNT /hpf (SMALL AMT); WBC, URINE 0-1 /hpf (0-3)
== END ==
LOC: M PLALAB 15:19
PROVIDERS: ATTEND Family Medicine
DX: N39.0 Urinary tract infection, site not specified (principal); M79.89 Other specified soft tissue disorders

== ENCOUNTER 2022-03-30 18:37 | Emergency (ER) | payer MEDICARE ==
[~2022-03-30] VITALS: Ht 157.5 cm; Wt 48.5 kg
[~2022-03-30 18:37] MED LIST changes: +NYST-38 PO; +NYST-38 SS; -NYST50SS PO; -NYST50SS SS
[2022-03-30] MEDS ORDERED: IPRA0.00 (18:52)
[2022-03-30] MEDS ORDERED: POTA1TAB14 (18:52)
[2022-03-30] MEDS ORDERED: BUPR15TASR (18:52)
[2022-03-30] MEDS ORDERED: traMADol 50 MG TAB PO ONE (21:20)
[2022-03-30] MEDS ORDERED: ONDANSETRON 4MG 2ML VIAL IV ONE (21:20)
[2022-03-30 21:35] LABS: BASO # 0.1 10^3/uL (0.0-0.2); BASO % 0.8 % (0.0-1.0); EOS % 0.1 % (0.0-3.0); HEMATOCRIT 36.2 % (36.0-47.0); HEMOGLOBIN 12.2 g/dl (12.0-15.5); LYMPH # 0.8 10^3/uL (1.5-5.0); LYMPH % 10.5 % (24.0-44.0); MEAN CORPUSCULAR HEMOGLOBIN 30.3 pg (27.0-33.0); MEAN CORPUSCULAR HGB CONC 33.7 g/dl (32.0-36.5); MEAN CORPUSCULAR VOLUME 89.8 fl (80.0-96.0); MONO % 20.9 % (2.0-8.0); NEUTROPHILS % 67.3 % (36.0-66.0); PLATELET COUNT, AUTOMATED 448 10^3/uL (150-450); RED BLOOD COUNT 4.03 10^6/uL (4.00-5.40); WHITE BLOOD COUNT 7.5 10^3/uL (4.0-10.0)
[2022-03-30 22:00] LABS: CK-MB VALUE MASS < 1.0 NG/ML (<3.6); LIPASE 59 U/L (12-53)
[2022-03-30 22:02] LABS: ALBUMIN 2.8 G/DL (3.2-5.2); ALKALINE PHOSPHATASE 367 U/L (46-116); ALT/SGPT 33 U/L (7.0-40); AST/SGOT 55 U/L (<34); BILIRUBIN,TOTAL 0.4 MG/DL (0.3-1.2); BLOOD UREA NITROGEN 20 MG/DL (9-23); CALCIUM LEVEL 8.6 MG/DL (8.3-10.6); CARBON DIOXIDE LEVEL 20 MMOL/L (20-31); CHLORIDE LEVEL 99 MMOL/L (98-107); CREATININE FOR GFR 0.79 MG/DL (0.55-1.30); GLOMERULAR FILTRATION RATE > 60.0 (>39); GLUCOSE, FASTING 120 MG/DL (74-106); MONO # 1.6 10^3/uL (0.0-0.8); POTASSIUM SERUM 3.7 MMOL/L (3.5-5.1); SODIUM LEVEL 128 MMOL/L (136-145); TOTAL PROTEIN 6.1 G/DL (5.7-8.2)
[2022-03-30 22:03] LABS: THYROID STIMULATING HORMONE 8.332 uIU/ML (0.55-4.78); THYROXINE (T4) 4.6 UG/DL (4.5-10.9)
[2022-03-30 22:05] LABS: T UPTAKE 43.4 % (22.5-37.0)
[2022-03-30] MEDS ORDERED: ISOVUE-370 76% 100ML VIAL As Ordered ONE (22:06)
[2022-03-30 22:07] LABS: CPK CREATINE PHOSPHOKINASE 22 U/L (34-145); MB/CK RELATIVE INDEX 4.54 (< OR =4)
[2022-03-31] MEDS ORDERED: FOSFOMYCIN TROMETHAMINE 3 GM POWDER PACKET (MONUROL) PO ONE (01:10)
[2022-03-31 01:16] VITALS: BP 116/59
[2022-03-31] MEDS ORDERED: TRAM50TA2 PO (01:37)
[2022-03-31] MEDS ORDERED: ONDA4TAB6 PO (01:37)
== END 2022-03-31 02:29 | disposition home or self-care (01) ==
LOC: M ED 18:37
DX: N39.0 Urinary tract infection, site not specified (principal); E87.1 Hypo-osmolality and hyponatremia; M25.561 Pain in right knee; M25.562 Pain in left knee; J44.9 Chronic obstructive pulmonary disease, unspecified; I10 Essential (primary) hypertension; K21.9 Gastro-esophageal reflux disease without esophagitis; F17.200 Nicotine dependence, unspecified, uncomplicated; Z88.8 Allergy status to other drugs, medicaments and biological substances; Z88.5 Allergy status to narcotic agent; Z79.51 Long term (current) use of inhaled steroids; Z79.810 Long term (current) use of selective estrogen receptor modulators (SERMs); Z79.02 Long term (current) use of antithrombotics/antiplatelets; Z79.899 Other long term (current) drug therapy
CPT/HCPCS: 71045; 74177; 80053; 81001; 82550; 82553; 83690; 83880; 84436; 84443; 84479; 84484; 85025; 87086; 96374; 99283; J2405; Q9967

== ENCOUNTER → 2022-04-09 | Outpatient (REF) | payer MEDICARE ==
[~2022-04-09] MED LIST changes: +BUPR15TASR; +IPRA0.00; +ONDA4TAB6 PO; +POTA1TAB14; +TRAM50TA2 PO
[2022-04-09 20:24] LABS: CLOSTRIDIUM DIFFICILE PCR NEGATIVE (NEGATIVE)
== END ==
LOC: M LAB REF 16:49
PROVIDERS: ATTEND Internal Medicine Gastroenterology
DX: K52.9 Noninfective gastroenteritis and colitis, unspecified (principal)

== ENCOUNTER → 2022-05-06 | Outpatient (REF) | payer MEDICARE | LOC: M SMT 13:07 | PROVIDERS: ATTEND Physician Assistant | DX: N39.0 Urinary tract infection, site not specified (principal) ==

== ENCOUNTER → 2022-05-06 | Outpatient (CLI) | payer MEDICARE ==
[~2022-05-06] MED LIST changes: +BARIUM SULFATE 700 MG TABLET (E-Z-DISK) As Ordered ONE; +E-Z-PAQUE 96% w/w SUSP 176GM BTL As Ordered ONE; +VARIBAR NECTAR 40% w/v 240ML SUSP BTL As Ordered ONE; +VARIBAR PUDDING 40% w/v 230ML TUBE As Ordered ONE
== END ==
LOC: M RAD 11:15
PROVIDERS: ATTEND Family Medicine
DX: R13.10 Dysphagia, unspecified (principal)

== ENCOUNTER 2022-07-05 10:11 | Inpatient (IN) | payer MEDICARE ==
[~2022-07-05] VITALS: Ht 160 cm; Wt 53.9 kg
[~2022-07-05 10:11] MED LIST changes: -BARIUM SULFATE 700 MG TABLET (E-Z-DISK) As Ordered ONE; -E-Z-PAQUE 96% w/w SUSP 176GM BTL As Ordered ONE; +FOLIC ACID 1MG TAB PO SCH; -IPRA0.00; +MULTIVITAMINS/MINERALS THERAP 1 TAB PO SCH; +POTA-298 PO; -POTA1TAB14; +THIAMINE 100 MG TAB PO SCH; -VARIBAR NECTAR 40% w/v 240ML SUSP BTL As Ordered ONE; -VARIBAR PUDDING 40% w/v 230ML TUBE As Ordered ONE
[2022-07-05] MEDS ORDERED: ONDANSETRON 4MG 2ML VIAL IV ONE (10:20)
[2022-07-05] MEDS ORDERED: DERMABOND TOPICAL SKIN ADHESIVE TOP ONE (10:55)
[2022-07-05] MEDS: MORPHINE 2 MG/ML 1ML VIAL IV PRN ×2 (11:02→11:30)
[2022-07-05] MEDS ORDERED: LORazepam 2 MG TAB PO PRN (11:10)
[2022-07-05 11:15] LABS: BASO # 0.1 10^3/uL (0.0-0.2); BASO % 0.8 % (0.0-1.0); EOS % 0.2 % (0.0-3.0); HEMOGLOBIN 10.8 g/dl (12.0-15.5); LYMPH # 0.8 10^3/uL (1.5-5.0); MEAN CORPUSCULAR HEMOGLOBIN 31.1 pg (27.0-33.0); MEAN CORPUSCULAR HGB CONC 31.8 g/dl (32.0-36.5); MONO # 0.5 10^3/uL (0.0-0.8); MONO % 8.1 % (2.0-8.0); NEUTROPHILS # 4.7 10^3/uL (1.5-8.5); NEUTROPHILS % 77.4 % (36.0-66.0); PLATELET COUNT, AUTOMATED 276 10^3/uL (150-450); RED BLOOD COUNT 3.47 10^6/uL (4.00-5.40); WHITE BLOOD COUNT 6.1 10^3/uL (4.0-10.0)
[2022-07-05 11:24] LABS: INR 1.02; PROTHROMBIN TIME 13.6 SECONDS (12.5-14.5)
[2022-07-05 11:34] LABS: RSV AMPLIFICATION NEGATIVE (NEGATIVE)
[2022-07-05 11:38] LABS: ETHYL ALCOHOL (ETHANOL) 0.037 % (0.000-0.010)
[2022-07-05 11:41] LABS: ALBUMIN 2.5 G/DL (3.2-5.2); ALKALINE PHOSPHATASE 316 U/L (46-116); ALT/SGPT 29 U/L (7.0-40); AST/SGOT 64 U/L (<34); BILIRUBIN,TOTAL 0.3 MG/DL (0.3-1.2); BLOOD UREA NITROGEN 10 MG/DL (9-23); CALCIUM LEVEL 7.6 MG/DL (8.3-10.6); CARBON DIOXIDE LEVEL 24 MMOL/L (20-31); CHLORIDE LEVEL 100 MMOL/L (98-107); CREATININE FOR GFR 0.62 MG/DL (0.55-1.30); GLOMERULAR FILTRATION RATE > 60.0 (>39); GLUCOSE, FASTING 76 MG/DL (74-106); POTASSIUM SERUM 3.7 MMOL/L (3.5-5.1); SODIUM LEVEL 134 MMOL/L (136-145); TOTAL PROTEIN 5.2 G/DL (5.7-8.2)
[2022-07-05] MEDS ORDERED: VENTAER INH (13:45)
[2022-07-05] MEDS ORDERED: LEVO50TA5 PO (13:51)
[2022-07-05] MEDS ORDERED: AMLO1TAB24 PO (13:51)
[2022-07-05] MEDS ORDERED: PANT40TA29 PO (13:51)
[2022-07-05] MEDS ORDERED: HOME MED LIST COMPLETE! XX SCH (13:55)
[2022-07-05] MEDS ORDERED: OXAZEPAM 10MG CAP PO SCH (14:00)
[2022-07-05] MEDS ORDERED: MORPHINE 2 MG/ML 1ML VIAL IV ONE (14:05)
[2022-07-05] MEDS ORDERED: traMADol 50 MG TAB PO ONE ×2 (14:05→17:00)
[2022-07-05] MEDS ORDERED: ALBUTEROL 90 MCG/ACT 8GM HFA INHALER INH PRN (14:25)
[2022-07-05] MEDS ORDERED: IPRATROPIUM 0.5MG/ALBUTEROL 2.5MG INH SOL UD 3ML (DUONEB) NEB PRN (14:25)
[2022-07-05 15:45] VITALS: BP 150/113; TEMP 98.2; O2SAT 96
[2022-07-05] MEDS ORDERED: NICOTINE 7 MG/24 HR TRANSDERMAL TD ONE (16:00)
[2022-07-05] MEDS ORDERED: MORPHINE 4 MG/ML 1ML VIAL IV ONE (16:15)
[2022-07-05] MEDS ORDERED: KETOROLAC 30 MG/ML 1ML VIAL IV ONE (16:30)
[2022-07-05] MEDS: POTASSIUM CHLORIDE 10MEQ SR TABLET PO SCH (16:34)
[2022-07-05] MEDS: amLODIPine 5 MG TAB PO SCH (16:34)
[2022-07-05] MEDS: DIGOXIN 0.125 MG TAB PO SCH (16:35)
[2022-07-05] MEDS: METOPROLOL TART 25 MG TABLET PO SCH (16:35)
[2022-07-05] MEDS: PANTOPRAZOLE 40MG TAB (PROTONIX) PO SCH (16:35)
[2022-07-05] MEDS: ATORVASTATIN 20 MG TAB PO SCH (16:36)
[2022-07-05] MEDS: ACETAMINOPHEN 500 MG TAB PO SCH ×2 (16:46→21:00)
[2022-07-05] MEDS: TORSEMIDE 20 MG TAB PO SCH (16:46)
[2022-07-05] MEDS: DICLOFENAC EPOLAMINE 1.3% PATCH TOP SCH (18:11)
[2022-07-05 20:00] VITALS: BP 121/74
[2022-07-05] MEDS: THIAMINE 100 MG TAB PO SCH (20:57)
[2022-07-05 20:58] VITALS: BP 121/74; TEMP 98.1; O2SAT 94
[2022-07-06] MEDS: traMADol 50 MG TAB PO PRN ×5 (02:43→21:37)
[2022-07-06] MEDS: LORazepam 2 MG TAB PO PRN (02:46)
[2022-07-06 03:26] VITALS: BP 133/80
[2022-07-06] MEDS: LEVOTHYROXINE 50MCG TABLET (0.05MG) PO SCH (05:50)
[2022-07-06] MEDS: DICLOFENAC EPOLAMINE 1.3% PATCH TOP SCH ×2 (05:51→17:22)
[2022-07-06 05:52] VITALS: BP 129/72; TEMP 98.1; O2SAT 91
[2022-07-06 06:38] LABS: HEMATOCRIT 33.2 % (36.0-47.0); HEMOGLOBIN 10.6 g/dl (12.0-15.5); MEAN CORPUSCULAR HEMOGLOBIN 30.9 pg (27.0-33.0); MEAN CORPUSCULAR HGB CONC 31.9 g/dl (32.0-36.5); MEAN CORPUSCULAR VOLUME 96.8 fl (80.0-96.0); PLATELET COUNT, AUTOMATED 262 10^3/uL (150-450); RED BLOOD COUNT 3.43 10^6/uL (4.00-5.40); WHITE BLOOD COUNT 7.1 10^3/uL (4.0-10.0)
[2022-07-06 07:05] LABS: BLOOD UREA NITROGEN 13 MG/DL (9-23); CALCIUM LEVEL 7.4 MG/DL (8.3-10.6); CARBON DIOXIDE LEVEL 27 MMOL/L (20-31); CHLORIDE LEVEL 102 MMOL/L (98-107); CREATININE FOR GFR 0.82 MG/DL (0.55-1.30); GLOMERULAR FILTRATION RATE > 60.0 (>39); GLUCOSE, FASTING 80 MG/DL (74-106); POTASSIUM SERUM 4.7 MMOL/L (3.5-5.1); SODIUM LEVEL 137 MMOL/L (136-145)
[2022-07-06] MEDS: ATORVASTATIN 20 MG TAB PO SCH (08:27)
[2022-07-06] MEDS: THIAMINE 100 MG TAB PO SCH ×2 (08:27→21:36)
[2022-07-06] MEDS: PANTOPRAZOLE 40MG TAB (PROTONIX) PO SCH (08:28)
[2022-07-06] MEDS: APIXABAN 5 MG TAB (ELIQUIS) PO SCH ×2 (08:28→21:36)
[2022-07-06] MEDS: MULTIVITAMINS/MINERALS THERAP 1 TAB PO SCH (08:28)
[2022-07-06] MEDS: TORSEMIDE 20 MG TAB PO SCH (08:28)
[2022-07-06] MEDS: FOLIC ACID 1MG TAB PO SCH (08:29)
[2022-07-06] MEDS: POTASSIUM CHLORIDE 10MEQ SR TABLET PO SCH (08:29)
[2022-07-06] MEDS: DIGOXIN 0.125 MG TAB PO SCH (08:29)
[2022-07-06] MEDS: METOPROLOL TART 25 MG TABLET PO SCH (08:30)
[2022-07-06] MEDS: amLODIPine 5 MG TAB PO SCH (08:30)
[2022-07-06] MEDS: ACETAMINOPHEN 500 MG TAB PO SCH ×2 (08:32→17:22)
[2022-07-06 08:33] VITALS: BP 129/72
[2022-07-06] MEDS ORDERED: NICOTINE 21MG/24HR 1 EA TRANSDERMAL TD SCH (09:00)
[2022-07-06] MEDS ORDERED: NICOTINE 7 MG/24 HR TRANSDERMAL TD SCH (09:00)
[2022-07-06] MEDS: NICOTINE 21MG/24HR 1 EA TRANSDERMAL TD SCH (09:11)
[2022-07-06 14:00] VITALS: BP 117/65; TEMP 97.7; O2SAT 91
[2022-07-06] MEDS ORDERED: ACETAMINOPHEN TAB 650MG DOSE (2X325MG) PO PRN (18:50)
[2022-07-06 22:00] VITALS: BP 130/68
[2022-07-06 23:39] VITALS: BP 138/71; TEMP 98.6; O2SAT 92
[2022-07-07] MEDS: traMADol 50 MG TAB PO PRN (03:01)
[2022-07-07] MEDS: LEVOTHYROXINE 50MCG TABLET (0.05MG) PO SCH (05:42)
[2022-07-07] MEDS: DICLOFENAC EPOLAMINE 1.3% PATCH TOP SCH ×2 (05:42→17:59)
[2022-07-07 06:09] LABS: HEMOGLOBIN 10.4 g/dl (12.0-15.5); MEAN CORPUSCULAR HEMOGLOBIN 31.1 pg (27.0-33.0); MEAN CORPUSCULAR HGB CONC 31.5 g/dl (32.0-36.5); MEAN CORPUSCULAR VOLUME 98.8 fl (80.0-96.0); PLATELET COUNT, AUTOMATED 229 10^3/uL (150-450); RED BLOOD COUNT 3.34 10^6/uL (4.00-5.40); WHITE BLOOD COUNT 9.8 10^3/uL (4.0-10.0)
[2022-07-07 06:29] VITALS: BP 151/67; TEMP 98.8; O2SAT 90
[2022-07-07 06:50] LABS: BLOOD UREA NITROGEN 16 MG/DL (9-23); CALCIUM LEVEL 7.6 MG/DL (8.3-10.6); CARBON DIOXIDE LEVEL 27 MMOL/L (20-31); CHLORIDE LEVEL 104 MMOL/L (98-107); CREATININE FOR GFR 0.74 MG/DL (0.55-1.30); GLOMERULAR FILTRATION RATE > 60.0 (>39); GLUCOSE, FASTING 92 MG/DL (74-106); POTASSIUM SERUM 4.5 MMOL/L (3.5-5.1); SODIUM LEVEL 137 MMOL/L (136-145)
[2022-07-07] MEDS: DIGOXIN 0.125 MG TAB PO SCH (09:20)
[2022-07-07] MEDS: ATORVASTATIN 20 MG TAB PO SCH (09:20)
[2022-07-07] MEDS: FOLIC ACID 1MG TAB PO SCH (09:20)
[2022-07-07] MEDS: TORSEMIDE 20 MG TAB PO SCH (09:20)
[2022-07-07] MEDS: APIXABAN 5 MG TAB (ELIQUIS) PO SCH ×2 (09:20→21:01)
[2022-07-07] MEDS: POTASSIUM CHLORIDE 10MEQ SR TABLET PO SCH (09:21)
[2022-07-07] MEDS: METOPROLOL TART 25 MG TABLET PO SCH (09:21)
[2022-07-07] MEDS: THIAMINE 100 MG TAB PO SCH ×2 (09:21→21:01)
[2022-07-07] MEDS: MULTIVITAMINS/MINERALS THERAP 1 TAB PO SCH (09:21)
[2022-07-07] MEDS: NICOTINE 21MG/24HR 1 EA TRANSDERMAL TD SCH (09:21)
[2022-07-07] MEDS: PANTOPRAZOLE 40MG TAB (PROTONIX) PO SCH (09:21)
[2022-07-07] MEDS: amLODIPine 5 MG TAB PO SCH (09:21)
[2022-07-07] MEDS: PERCOCET 5MG/325MG TAB PO PRN ×3 (13:49→22:59)
[2022-07-07 14:00] VITALS: BP 132/69; TEMP 98.2; O2SAT 95
[2022-07-07 14:20] VITALS: BP 132/69
[2022-07-07 21:04] VITALS: BP 134/62
[2022-07-07 21:07] VITALS: BP 134/62; TEMP 98.6; O2SAT 96
[2022-07-07 22:00] VITALS: BP 134/62
[2022-07-08] VITALS (7 sets, daily range): BP systolic 126–142; BP diastolic 60–65; TEMP 97.5–98.1; O2SAT 96–97
[2022-07-08] MEDS: LORazepam 2 MG TAB PO PRN (01:28)
[2022-07-08] MEDS: DICLOFENAC EPOLAMINE 1.3% PATCH TOP SCH ×2 (05:45→17:44)
[2022-07-08] MEDS: LEVOTHYROXINE 50MCG TABLET (0.05MG) PO SCH (05:45)
[2022-07-08 06:21] LABS: HEMATOCRIT 31.8 % (36.0-47.0); HEMOGLOBIN 9.8 g/dl (12.0-15.5); MEAN CORPUSCULAR HEMOGLOBIN 31.3 pg (27.0-33.0); MEAN CORPUSCULAR HGB CONC 30.8 g/dl (32.0-36.5); MEAN CORPUSCULAR VOLUME 101.6 fl (80.0-96.0); PLATELET COUNT, AUTOMATED 223 10^3/uL (150-450); RED BLOOD COUNT 3.13 10^6/uL (4.00-5.40); WHITE BLOOD COUNT 8.3 10^3/uL (4.0-10.0)
[2022-07-08 06:44] LABS: BLOOD UREA NITROGEN 14 MG/DL (9-23); CALCIUM LEVEL 7.4 MG/DL (8.3-10.6); CARBON DIOXIDE LEVEL 28 MMOL/L (20-31); CHLORIDE LEVEL 105 MMOL/L (98-107); CREATININE FOR GFR 0.66 MG/DL (0.55-1.30); GLOMERULAR FILTRATION RATE > 60.0 (>39); GLUCOSE, FASTING 79 MG/DL (74-106); POTASSIUM SERUM 5.6 MMOL/L (3.5-5.1); SODIUM LEVEL 137 MMOL/L (136-145)
[2022-07-08] MEDS: amLODIPine 5 MG TAB PO SCH (09:00)
[2022-07-08] MEDS: THIAMINE 100 MG TAB PO SCH (09:43)
[2022-07-08] MEDS: PANTOPRAZOLE 40MG TAB (PROTONIX) PO SCH (09:43)
[2022-07-08] MEDS: ATORVASTATIN 20 MG TAB PO SCH (09:43)
[2022-07-08] MEDS: MULTIVITAMINS/MINERALS THERAP 1 TAB PO SCH (09:43)
[2022-07-08] MEDS: TORSEMIDE 20 MG TAB PO SCH (09:43)
[2022-07-08] MEDS: FOLIC ACID 1MG TAB PO SCH (09:43)
[2022-07-08] MEDS: APIXABAN 5 MG TAB (ELIQUIS) PO SCH ×2 (09:44→21:12)
[2022-07-08] MEDS: DIGOXIN 0.125 MG TAB PO SCH (09:44)
[2022-07-08] MEDS: METOPROLOL TART 25 MG TABLET PO SCH (09:44)
[2022-07-08] MEDS: NICOTINE 21MG/24HR 1 EA TRANSDERMAL TD SCH (09:46)
[2022-07-08] MEDS: PERCOCET 5MG/325MG TAB PO PRN ×3 (10:35→21:46)
[2022-07-09] MEDS: LORazepam 2 MG TAB PO PRN (01:05)
[2022-07-09 01:08] VITALS: BP 129/65
[2022-07-09] MEDS: LEVOTHYROXINE 50MCG TABLET (0.05MG) PO SCH (05:43)
[2022-07-09] MEDS: DICLOFENAC EPOLAMINE 1.3% PATCH TOP SCH ×2 (05:43→17:59)
[2022-07-09 06:36] VITALS: BP 131/65; TEMP 97.9; O2SAT 96
[2022-07-09 07:11] LABS: HEMATOCRIT 33.4 % (36.0-47.0); MEAN CORPUSCULAR HEMOGLOBIN 30.6 pg (27.0-33.0); MEAN CORPUSCULAR HGB CONC 29.9 g/dl (32.0-36.5); MEAN CORPUSCULAR VOLUME 102.1 fl (80.0-96.0); PLATELET COUNT, AUTOMATED 261 10^3/uL (150-450); RED BLOOD COUNT 3.27 10^6/uL (4.00-5.40); WHITE BLOOD COUNT 7.5 10^3/uL (4.0-10.0)
[2022-07-09 07:33] LABS: BLOOD UREA NITROGEN 16 MG/DL (9-23); CALCIUM LEVEL 7.7 MG/DL (8.3-10.6); CARBON DIOXIDE LEVEL 30 MMOL/L (20-31); CHLORIDE LEVEL 106 MMOL/L (98-107); CREATININE FOR GFR 0.71 MG/DL (0.55-1.30); GLOMERULAR FILTRATION RATE > 60.0 (>39); GLUCOSE, FASTING 74 MG/DL (74-106); POTASSIUM SERUM 4.8 MMOL/L (3.5-5.1); SODIUM LEVEL 140 MMOL/L (136-145)
[2022-07-09] MEDS: NICOTINE 21MG/24HR 1 EA TRANSDERMAL TD SCH (09:00)
[2022-07-09] MEDS: MULTIVITAMINS/MINERALS THERAP 1 TAB PO SCH (09:37)
[2022-07-09] MEDS: FOLIC ACID 1MG TAB PO SCH (09:37)
[2022-07-09] MEDS: DIGOXIN 0.125 MG TAB PO SCH (09:40)
[2022-07-09] MEDS: METOPROLOL TART 25 MG TABLET PO SCH (09:40)
[2022-07-09] MEDS: APIXABAN 5 MG TAB (ELIQUIS) PO SCH ×2 (09:41→21:11)
[2022-07-09] MEDS: TORSEMIDE 20 MG TAB PO SCH (09:41)
[2022-07-09] MEDS: amLODIPine 5 MG TAB PO SCH (09:41)
[2022-07-09] MEDS: ATORVASTATIN 20 MG TAB PO SCH (09:41)
[2022-07-09] MEDS: PANTOPRAZOLE 40MG TAB (PROTONIX) PO SCH (09:41)
[2022-07-09] MEDS: PERCOCET 5MG/325MG TAB PO PRN ×3 (11:30→21:55)
[2022-07-10] MEDS: PERCOCET 5MG/325MG TAB PO PRN ×5 (02:01→23:14)
[2022-07-10] MEDS: LEVOTHYROXINE 50MCG TABLET (0.05MG) PO SCH (05:44)
[2022-07-10] MEDS: DICLOFENAC EPOLAMINE 1.3% PATCH TOP SCH ×2 (05:45→18:19)
[2022-07-10 06:11] VITALS: BP 132/67; TEMP 97.1; O2SAT 96
[2022-07-10 06:31] LABS: HEMOGLOBIN 10.3 g/dl (12.0-15.5); MEAN CORPUSCULAR HEMOGLOBIN 31.4 pg (27.0-33.0); MEAN CORPUSCULAR HGB CONC 31.2 g/dl (32.0-36.5); MEAN CORPUSCULAR VOLUME 100.6 fl (80.0-96.0); PLATELET COUNT, AUTOMATED 283 10^3/uL (150-450); RED BLOOD COUNT 3.28 10^6/uL (4.00-5.40); WHITE BLOOD COUNT 7.8 10^3/uL (4.0-10.0)
[2022-07-10 07:48] LABS: BLOOD UREA NITROGEN 20 MG/DL (9-23); CALCIUM LEVEL 8.2 MG/DL (8.3-10.6); CARBON DIOXIDE LEVEL 30 MMOL/L (20-31); CHLORIDE LEVEL 105 MMOL/L (98-107); CREATININE FOR GFR 0.72 MG/DL (0.55-1.30); GLOMERULAR FILTRATION RATE > 60.0 (>39); GLUCOSE, FASTING 79 MG/DL (74-106); POTASSIUM SERUM 4.4 MMOL/L (3.5-5.1); SODIUM LEVEL 141 MMOL/L (136-145)
[2022-07-10] MEDS: TORSEMIDE 20 MG TAB PO SCH (09:36)
[2022-07-10] MEDS: amLODIPine 5 MG TAB PO SCH (09:36)
[2022-07-10] MEDS: METOPROLOL TART 25 MG TABLET PO SCH (09:36)
[2022-07-10] MEDS: ATORVASTATIN 20 MG TAB PO SCH (09:37)
[2022-07-10] MEDS: APIXABAN 5 MG TAB (ELIQUIS) PO SCH ×2 (09:37→21:33)
[2022-07-10] MEDS: DIGOXIN 0.125 MG TAB PO SCH (09:37)
[2022-07-10] MEDS: FOLIC ACID 1MG TAB PO SCH (09:37)
[2022-07-10] MEDS: MULTIVITAMINS/MINERALS THERAP 1 TAB PO SCH (09:38)
[2022-07-10] MEDS: NICOTINE 21MG/24HR 1 EA TRANSDERMAL TD SCH (09:38)
[2022-07-10] MEDS: PANTOPRAZOLE 40MG TAB (PROTONIX) PO SCH (09:38)
[2022-07-10] MEDS ORDERED: ALBUTEROL 90 MCG/ACT 8GM HFA INHALER INH PRN (18:55)
[2022-07-10 21:46] VITALS: BP 156/82
[2022-07-10 21:51] VITALS: BP 154/82; TEMP 97; O2SAT 96
[2022-07-10] MEDS: LORazepam 2 MG TAB PO PRN (22:04)
[2022-07-10] MEDS: THIAMINE 100 MG TAB PO SCH (22:04)
[2022-07-11 01:58] VITALS: BP 151/77
[2022-07-11 02:01] VITALS: BP 151/77
[2022-07-11] MEDS: LORazepam 2 MG TAB PO PRN (02:06)
[2022-07-11 06:12] VITALS: TEMP 98.4; O2SAT 96
[2022-07-11] MEDS: PERCOCET 5MG/325MG TAB PO PRN ×4 (06:27→22:09)
[2022-07-11] MEDS: LEVOTHYROXINE 50MCG TABLET (0.05MG) PO SCH (06:27)
[2022-07-11] MEDS: DICLOFENAC EPOLAMINE 1.3% PATCH TOP SCH ×2 (06:28→17:45)
[2022-07-11 06:54] LABS: HEMATOCRIT 36.2 % (36.0-47.0); HEMOGLOBIN 11.2 g/dl (12.0-15.5); MEAN CORPUSCULAR HEMOGLOBIN 31.2 pg (27.0-33.0); MEAN CORPUSCULAR HGB CONC 30.9 g/dl (32.0-36.5); MEAN CORPUSCULAR VOLUME 100.8 fl (80.0-96.0); PLATELET COUNT, AUTOMATED 385 10^3/uL (150-450); RED BLOOD COUNT 3.59 10^6/uL (4.00-5.40); WHITE BLOOD COUNT 8.1 10^3/uL (4.0-10.0)
[2022-07-11 07:19] LABS: BLOOD UREA NITROGEN 15 MG/DL (9-23); CALCIUM LEVEL 8.2 MG/DL (8.3-10.6); CARBON DIOXIDE LEVEL 30 MMOL/L (20-31); CHLORIDE LEVEL 104 MMOL/L (98-107); CREATININE FOR GFR 0.74 MG/DL (0.55-1.30); GLOMERULAR FILTRATION RATE > 60.0 (>39); GLUCOSE, FASTING 76 MG/DL (74-106); POTASSIUM SERUM 4.1 MMOL/L (3.5-5.1); SODIUM LEVEL 141 MMOL/L (136-145)
[2022-07-11] MEDS: NICOTINE 21MG/24HR 1 EA TRANSDERMAL TD SCH (09:53)
[2022-07-11] MEDS: PANTOPRAZOLE 40MG TAB (PROTONIX) PO SCH (09:54)
[2022-07-11] MEDS: FOLIC ACID 1MG TAB PO SCH (09:54)
[2022-07-11] MEDS: ATORVASTATIN 20 MG TAB PO SCH (09:55)
[2022-07-11] MEDS: THIAMINE 100 MG TAB PO SCH ×2 (09:55→21:14)
[2022-07-11] MEDS: APIXABAN 5 MG TAB (ELIQUIS) PO SCH ×2 (09:55→21:14)
[2022-07-11] MEDS: MULTIVITAMINS/MINERALS THERAP 1 TAB PO SCH (09:55)
[2022-07-11] MEDS: TORSEMIDE 20 MG TAB PO SCH (09:56)
[2022-07-11] MEDS: METOPROLOL TART 25 MG TABLET PO SCH (09:57)
[2022-07-11] MEDS: DIGOXIN 0.125 MG TAB PO SCH (09:57)
[2022-07-11] MEDS: amLODIPine 5 MG TAB PO SCH (09:57)
[2022-07-11] MEDS: SENOKOT S TAB PO PRN ×2 (11:30→22:13)
[2022-07-11] MEDS: [UNRECOGNIZED DRUG - REMARK] XX SCH (21:00)
[2022-07-12 01:12] VITALS: BP 138/71; TEMP 98.1; O2SAT 95
[2022-07-12] MEDS: PERCOCET 5MG/325MG TAB PO PRN ×5 (02:13→21:04)
[2022-07-12] MEDS: LEVOTHYROXINE 50MCG TABLET (0.05MG) PO SCH (05:51)
[2022-07-12] MEDS: DICLOFENAC EPOLAMINE 1.3% PATCH TOP SCH ×2 (05:52→17:04)
[2022-07-12 06:40] LABS: HEMATOCRIT 31.8 % (36.0-47.0); MEAN CORPUSCULAR HEMOGLOBIN 31.3 pg (27.0-33.0); MEAN CORPUSCULAR HGB CONC 31.4 g/dl (32.0-36.5); MEAN CORPUSCULAR VOLUME 99.4 fl (80.0-96.0); PLATELET COUNT, AUTOMATED 384 10^3/uL (150-450); WHITE BLOOD COUNT 7.9 10^3/uL (4.0-10.0)
[2022-07-12 07:17] LABS: BLOOD UREA NITROGEN 20 MG/DL (9-23); CALCIUM LEVEL 7.6 MG/DL (8.3-10.6); CARBON DIOXIDE LEVEL 29 MMOL/L (20-31); CHLORIDE LEVEL 105 MMOL/L (98-107); CREATININE FOR GFR 0.76 MG/DL (0.55-1.30); GLOMERULAR FILTRATION RATE > 60.0 (>39); GLUCOSE, FASTING 75 MG/DL (74-106); SODIUM LEVEL 139 MMOL/L (136-145)
[2022-07-12] MEDS: APIXABAN 5 MG TAB (ELIQUIS) PO SCH ×2 (08:02→21:01)
[2022-07-12] MEDS: METOPROLOL TART 25 MG TABLET PO SCH (08:02)
[2022-07-12] MEDS: amLODIPine 5 MG TAB PO SCH (08:03)
[2022-07-12] MEDS: MULTIVITAMINS/MINERALS THERAP 1 TAB PO SCH (08:03)
[2022-07-12] MEDS: TORSEMIDE 20 MG TAB PO SCH (08:04)
[2022-07-12] MEDS: PANTOPRAZOLE 40MG TAB (PROTONIX) PO SCH (08:04)
[2022-07-12] MEDS: FOLIC ACID 1MG TAB PO SCH (08:04)
[2022-07-12] MEDS: THIAMINE 100 MG TAB PO SCH ×2 (08:04→21:05)
[2022-07-12] MEDS: ATORVASTATIN 20 MG TAB PO SCH (08:04)
[2022-07-12] MEDS: DIGOXIN 0.125 MG TAB PO SCH (08:05)
[2022-07-12] MEDS: NICOTINE 21MG/24HR 1 EA TRANSDERMAL TD SCH (08:05)
[2022-07-12] MEDS ORDERED: SIMETHICONE 80MG CHEW TAB PO PRN (15:55)
[2022-07-12] MEDS: MOM 30ML SUSPENSION UDC PO PRN (16:09)
[2022-07-12] MEDS: SENNA 8.6 MG TAB (SENOKOT) PO SCH (21:01)
[2022-07-12] MEDS: DOCUSATE SODIUM 100MG CAPSULE PO SCH (21:01)
[2022-07-12] MEDS: [UNRECOGNIZED DRUG - REMARK] XX SCH (21:15)
[2022-07-13] MEDS: PERCOCET 5MG/325MG TAB PO PRN ×4 (02:15→20:22)
[2022-07-13 05:33] VITALS: BP 153/75; TEMP 97.9; O2SAT 96
[2022-07-13] MEDS: LEVOTHYROXINE 50MCG TABLET (0.05MG) PO SCH (05:47)
[2022-07-13] MEDS: DICLOFENAC EPOLAMINE 1.3% PATCH TOP SCH ×2 (05:47→17:15)
[2022-07-13] MEDS: THIAMINE 100 MG TAB PO SCH ×2 (08:13→20:22)
[2022-07-13] MEDS: METOPROLOL TART 25 MG TABLET PO SCH (08:13)
[2022-07-13] MEDS: APIXABAN 5 MG TAB (ELIQUIS) PO SCH ×2 (08:13→20:22)
[2022-07-13] MEDS: ATORVASTATIN 20 MG TAB PO SCH (08:13)
[2022-07-13] MEDS: MULTIVITAMINS/MINERALS THERAP 1 TAB PO SCH (08:13)
[2022-07-13] MEDS: TORSEMIDE 20 MG TAB PO SCH (08:14)
[2022-07-13] MEDS: amLODIPine 5 MG TAB PO SCH (08:14)
[2022-07-13] MEDS: FOLIC ACID 1MG TAB PO SCH (08:14)
[2022-07-13] MEDS: DIGOXIN 0.125 MG TAB PO SCH (08:14)
[2022-07-13] MEDS: PANTOPRAZOLE 40MG TAB (PROTONIX) PO SCH (08:15)
[2022-07-13] MEDS: NICOTINE 21MG/24HR 1 EA TRANSDERMAL TD SCH (08:15)
[2022-07-13] MEDS: DOCUSATE SODIUM 100MG CAPSULE PO SCH ×2 (08:16→20:22)
[2022-07-13] MEDS: MOM 30ML SUSPENSION UDC PO PRN (13:54)
[2022-07-13] MEDS: SENNA 8.6 MG TAB (SENOKOT) PO SCH (20:22)
[2022-07-13] MEDS: [UNRECOGNIZED DRUG - REMARK] XX SCH (21:38)
[2022-07-14] MEDS: PERCOCET 5MG/325MG TAB PO PRN ×2 (05:38→09:47)
[2022-07-14] MEDS: DICLOFENAC EPOLAMINE 1.3% PATCH TOP SCH (05:38)
[2022-07-14] MEDS: LEVOTHYROXINE 50MCG TABLET (0.05MG) PO SCH (05:38)
[2022-07-14 06:44] VITALS: BP 139/56; TEMP 97.7; O2SAT 97
[2022-07-14] MEDS ORDERED: VITMTA PO (07:42)
[2022-07-14] MEDS ORDERED: PERCOCET PO ×2 (07:42)
[2022-07-14] MEDS ORDERED: MOM30SS2 PO (07:42)
[2022-07-14] MEDS ORDERED: COLA100C5 PO (07:42)
[2022-07-14] MEDS ORDERED: NICO21PAT TD (07:42)
[2022-07-14] MEDS: DOCUSATE SODIUM 100MG CAPSULE PO SCH (09:00)
[2022-07-14] MEDS: NICOTINE 21MG/24HR 1 EA TRANSDERMAL TD SCH (09:46)
[2022-07-14] MEDS: APIXABAN 5 MG TAB (ELIQUIS) PO SCH (09:47)
[2022-07-14] MEDS: FOLIC ACID 1MG TAB PO SCH (09:47)
[2022-07-14] MEDS: ATORVASTATIN 20 MG TAB PO SCH (09:47)
[2022-07-14] MEDS: PANTOPRAZOLE 40MG TAB (PROTONIX) PO SCH (09:47)
[2022-07-14] MEDS: MULTIVITAMINS/MINERALS THERAP 1 TAB PO SCH (09:47)
[2022-07-14] MEDS: THIAMINE 100 MG TAB PO SCH (09:47)
[2022-07-14 09:48] VITALS: BP 138/56
[2022-07-14] MEDS: amLODIPine 5 MG TAB PO SCH (09:48)
[2022-07-14] MEDS: DIGOXIN 0.125 MG TAB PO SCH (09:48)
[2022-07-14] MEDS: METOPROLOL TART 25 MG TABLET PO SCH (09:49)
[2022-07-14] MEDS: TORSEMIDE 20 MG TAB PO SCH (09:49)
[2022-07-14 10:24] VITALS: BP 138/56
== END 2022-07-14 13:05 | DRG 536 ==
LOC: EDBD 10:11 → M ED 10:11 → M ED INP 13:38 → ENRESERV 14:06 → M MS5PR 15:57
PROVIDERS: ADMIT General Practice; ATTEND Internal Medicine
DX: S72.112A Displaced fracture of greater trochanter of left femur, initial encounter for closed fracture (principal); R64 Cachexia; I10 Essential (primary) hypertension; F10.20 Alcohol dependence, uncomplicated; J44.9 Chronic obstructive pulmonary disease, unspecified; E03.9 Hypothyroidism, unspecified; K21.9 Gastro-esophageal reflux disease without esophagitis; I48.91 Unspecified atrial fibrillation; F17.200 Nicotine dependence, unspecified, uncomplicated; Z79.01 Long term (current) use of anticoagulants; R13.10 Dysphagia, unspecified; I27.81 Cor pulmonale (chronic); K59.00 Constipation, unspecified; Z68.21 Body mass index [BMI] 21.0-21.9, adult; Z88.8 Allergy status to other drugs, medicaments and biological substances; Z79.899 Other long term (current) drug therapy; Z88.5 Allergy status to narcotic agent; Z85.828 Personal history of other malignant neoplasm of skin; Z66 Do not resuscitate; W22.8XXA Striking against or struck by other objects, initial encounter; Y92.009 Unspecified place in unspecified non-institutional (private) residence as the place of occurrence of the external cause

== ENCOUNTER → 2022-07-28 | Outpatient (CLI) | payer MEDICARE ==
[~2022-07-28] MED LIST changes: -FOLIC ACID 1MG TAB PO SCH; +MOM30SS2 PO; -MULTIVITAMINS/MINERALS THERAP 1 TAB PO SCH; +PERCOCET PO; -THIAMINE 100 MG TAB PO SCH; +VENTAER INH
== END ==
LOC: M SOG 11:04
PROVIDERS: ATTEND Orthopaedic Surgery
DX: S72.001D Fracture of unspecified part of neck of right femur, subsequent encounter for closed fracture with routine healing (principal)

== ENCOUNTER → 2022-09-13 | Outpatient (CLI) | payer MEDICARE | LOC: M SOG 07:54 | PROVIDERS: ATTEND Orthopaedic Surgery | DX: S72.115D Nondisplaced fracture of greater trochanter of left femur, subsequent encounter for closed fracture with routine healing (principal); M85.88 Other specified disorders of bone density and structure, other site ==

== ENCOUNTER 2022-09-17 15:19 | Emergency (ER) | payer MEDICARE ==
[~2022-09-17] VITALS: Ht 160 cm; Wt 48.5 kg
[2022-09-17] MEDS ORDERED: ACETAMINOPHEN 500 MG TAB PO ONE (19:05)
[2022-09-17] MEDS ORDERED: ceFAZolin SOD 1 GM in D5W MINI-BAG PLUS 50 ML IV ONE (23:05)
[2022-09-17] MEDS ORDERED: traMADol 50 MG TAB PO ONE (23:05)
[2022-09-17] MEDS ORDERED: AMOX875T2 PO (23:18)
[2022-09-17] MEDS ORDERED: TRAM50TA2 PO (23:21)
[2022-09-17 23:26] VITALS: BP 164/96; TEMP 98.7
[2022-09-17 23:30] LABS: BASO # 0.1 10^3/uL (0.0-0.2); BASO % 0.8 % (0.0-1.0); EOS # 0.2 10^3/uL (0.0-0.5); EOS % 1.5 % (0.0-3.0); HEMATOCRIT 39.7 % (36.0-47.0); HEMOGLOBIN 12.8 g/dl (12.0-15.5); LYMPH # 2.5 10^3/uL (1.5-5.0); LYMPH % 24.3 % (24.0-44.0); MEAN CORPUSCULAR HEMOGLOBIN 30.3 pg (27.0-33.0); MEAN CORPUSCULAR HGB CONC 32.2 g/dl (32.0-36.5); MEAN CORPUSCULAR VOLUME 94.1 fl (80.0-96.0); MONO # 1.3 10^3/uL (0.0-0.8); NEUTROPHILS # 6.1 10^3/uL (1.5-8.5); PLATELET COUNT, AUTOMATED 338 10^3/uL (150-450); RED BLOOD COUNT 4.22 10^6/uL (4.00-5.40); WHITE BLOOD COUNT 10.2 10^3/uL (4.0-10.0)
[2022-09-17 23:42] VITALS: O2SAT 100
== END 2022-09-18 00:11 | disposition home or self-care (01) ==
LOC: M ED 15:19
DX: S62.601B Fracture of unspecified phalanx of left index finger, initial encounter for open fracture (principal); S61.205A Unspecified open wound of left ring finger without damage to nail, initial encounter; W23.1XXA Caught, crushed, jammed, or pinched between stationary objects, initial encounter; I10 Essential (primary) hypertension; E78.5 Hyperlipidemia, unspecified; J44.9 Chronic obstructive pulmonary disease, unspecified; F10.10 Alcohol abuse, uncomplicated; F17.200 Nicotine dependence, unspecified, uncomplicated; Z86.79 Personal history of other diseases of the circulatory system; Z79.01 Long term (current) use of anticoagulants; Z88.5 Allergy status to narcotic agent; Z88.8 Allergy status to other drugs, medicaments and biological substances; Z79.52 Long term (current) use of systemic steroids; Z79.810 Long term (current) use of selective estrogen receptor modulators (SERMs); Z79.02 Long term (current) use of antithrombotics/antiplatelets; Z79.899 Other long term (current) drug therapy
CPT/HCPCS: 73140; 80047; 85025; 96365; 99283; J0690

== ENCOUNTER → 2022-09-29 | Outpatient (REF) | payer MEDICARE | LOC: M SFHCWOUN 17:23 | PROVIDERS: ATTEND Surgery | DX: I96 Gangrene, not elsewhere classified (principal) ==

== ENCOUNTER 2022-12-02 10:13 | Inpatient (IN) | payer MEDICARE ==
[~2022-12-02] VITALS: Ht 157.5 cm; Wt 49.3 kg
[~2022-12-02 10:13] MED LIST changes: +FOLIC ACID 1MG TAB PO SCH; +MULTIVITAMINS/MINERALS THERAP 1 TAB PO SCH
[2022-12-02 11:18] LABS: VENOUS HCO3 27.3 MMOL/L (23.0-27.0); VENOUS O2 SATURATION 78.7 % (60.0-80.0); VENOUS PARTIAL PRESSURE CO2 50.6 mmHg (38.0-50.0); VENOUS PARTIAL PRESSURE O2 42.1 mmHg (30.0-50.0); VENOUS STANDARD HCO3 24.9 MMOL/L; VENOUS TOTAL CO2 28.9 MMOL/L (24.0-28.0)
[2022-12-02] MEDS ORDERED: NALT50TA4 PO (11:23)
[2022-12-02 11:26] LABS: BASO % 0.2 % (0.0-1.0); HEMOGLOBIN 11.8 g/dl (12.0-15.5); LYMPH # 0.6 10^3/uL (1.5-5.0); LYMPH % 2.9 % (24.0-44.0); MEAN CORPUSCULAR HEMOGLOBIN 29.1 pg (27.0-33.0); MEAN CORPUSCULAR HGB CONC 31.1 g/dl (32.0-36.5); MEAN CORPUSCULAR VOLUME 93.6 fl (80.0-96.0); MONO # 0.8 10^3/uL (0.0-0.8); MONO % 3.8 % (2.0-8.0); NEUTROPHILS # 18.3 10^3/uL (1.5-8.5); NEUTROPHILS % 92.4 % (36.0-66.0); PLATELET COUNT, AUTOMATED 454 10^3/uL (150-450); RED BLOOD COUNT 4.06 10^6/uL (4.00-5.40); WHITE BLOOD COUNT 19.8 10^3/uL (4.0-10.0)
[2022-12-02 11:37] LABS: INR 1.08; PROTHROMBIN TIME 13.7 SECONDS (12.5-14.5)
[2022-12-02 12:00] LABS: ALBUMIN 2.8 G/DL (3.2-5.2); ALKALINE PHOSPHATASE 231 U/L (46-116); ALT/SGPT 32 U/L (7.0-40); AST/SGOT 34 U/L (<34); BILIRUBIN,DIRECT < 0.1 MG/DL (<0.4); BILIRUBIN,TOTAL 0.2 MG/DL (0.3-1.2); BLOOD UREA NITROGEN 17 MG/DL (9-23); CALCIUM LEVEL 8.4 MG/DL (8.3-10.6); CARBON DIOXIDE LEVEL 30 MMOL/L (20-31); CHLORIDE LEVEL 100 MMOL/L (98-107); CREATININE FOR GFR 0.58 MG/DL (0.55-1.30); GLOMERULAR FILTRATION RATE > 60.0 (>39); GLUCOSE, FASTING 107 MG/DL (74-106); POTASSIUM SERUM 5.3 MMOL/L (3.5-5.1); SODIUM LEVEL 140 MMOL/L (136-145); THYROID STIMULATING HORMONE 0.762 uIU/ML (0.55-4.78); THYROXINE (T4) 8.3 UG/DL (4.5-10.9); TOTAL PROTEIN 6.5 G/DL (5.7-8.2)
[2022-12-02] MEDS ORDERED: ISOVUE-370 76% 100ML VIAL As Ordered ONE (12:52)
[2022-12-02] MEDS ORDERED: LevoFLOXacin 750 MG TABLET PO ONE (14:00)
[2022-12-02] MEDS ORDERED: LORazepam 2 MG TAB PO PRN ×2 (14:20→17:35)
[2022-12-02] MEDS ORDERED: methylPREDNISolone 125MG 2ML VIAL IV ONE (14:20)
[2022-12-02] MEDS: IPRATROPIUM 0.5MG/ALBUTEROL 2.5MG INH SOL UD 3ML (DUONEB) NEB SCH ×3 (14:32→14:54)
[2022-12-02] MEDS ORDERED: THIAMINE 100 MG TAB PO SCH ×2 (15:00→21:00)
[2022-12-02] MEDS ORDERED: MED REC IN PROGRESS XX SCH (15:55)
[2022-12-02] MEDS ORDERED: OCUVTAB4 PO (16:12)
[2022-12-02] MEDS ORDERED: HOME MED LIST COMPLETE! XX SCH (16:15)
[2022-12-02] MEDS ORDERED: OXAZEPAM 10MG CAP PO ONE (17:35)
[2022-12-02] MEDS ORDERED: IPRATROPIUM 0.5MG/ALBUTEROL 2.5MG INH SOL UD 3ML (DUONEB) NEB PRN (19:00)
[2022-12-02] MEDS ORDERED: TREL1AER PO (19:00)
[2022-12-02] MEDS ORDERED: CALCIUM CARBONATE 500 MG CHEW U/D PO PRN (19:15)
[2022-12-02] MEDS ORDERED: ONDANSETRON 4MG 2ML VIAL IV PRN (19:15)
[2022-12-02 19:25] LABS: PROCALCITONIN 0.18 ng/ml
[2022-12-02] MEDS: FORMOTEROL FUMARATE 20 MCG/2 ML INHALATION SOLUTION (PERFOROMIST) INH SCH (20:00)
[2022-12-02] MEDS ORDERED: IPRATROPIUM 0.5MG/ALBUTEROL 2.5MG INH SOL UD 3ML (DUONEB) NEB SCH (20:00)
[2022-12-02] MEDS: LEVALBUTEROL 1.25MG 0.5ML CONCENTRATE NEB INH SCH ×2 (20:31→23:12)
[2022-12-02] MEDS: BUDESONIDE 0.5 MG/2 ML INHALATION SUSPENSION INH SCH (20:32)
[2022-12-02] MEDS ORDERED: OXAZEPAM 10MG CAP PO SCH (21:00)
[2022-12-02] MEDS ORDERED: NICOTINE 21MG/24HR 1 EA TRANSDERMAL TD SCH (21:00)
[2022-12-02] MEDS: ACETAMINOPHEN TAB 650MG DOSE (2X325MG) PO SCH (21:30)
[2022-12-02] MEDS: METOPROLOL TART 12.5 MG PER 1/2 TAB PO SCH (21:31)
[2022-12-02] MEDS: guaiFENesin ER TABLET 600 MG TAB PO SCH (21:31)
[2022-12-02] MEDS: APIXABAN 5 MG TAB (ELIQUIS) PO SCH (21:31)
[2022-12-02] MEDS: methylPREDNISolone 40MG 1ML VIAL IV SCH (21:31)
[2022-12-02] MEDS: PANTOPRAZOLE 40MG TAB (PROTONIX) PO SCH (21:32)
[2022-12-02 21:55] VITALS: BP 151/65; TEMP 97.7; O2SAT 100
[2022-12-02 22:05] VITALS: BP 151/65
[2022-12-02] MEDS: IPRATROPIUM 0.02% SOLN 0.5MG 2.5ML NEB INH SCH (23:12)
[2022-12-03] MEDS: LEVALBUTEROL 1.25MG 0.5ML CONCENTRATE NEB INH SCH ×6 (03:47→23:16)
[2022-12-03] MEDS: ACETAMINOPHEN TAB 650MG DOSE (2X325MG) PO PRN (04:15)
[2022-12-03 06:00] VITALS: BP_SYST 142; BP_SYST 143; BP_DIAS 65; BP_DIAS 66; TEMP 97.7; O2SAT 95
[2022-12-03] MEDS: methylPREDNISolone 40MG 1ML VIAL IV SCH ×3 (06:03→21:36)
[2022-12-03] MEDS: LEVOTHYROXINE 50MCG TABLET (0.05MG) PO SCH (06:03)
[2022-12-03 06:13] LABS: BASO % 0.1 % (0.0-1.0); HEMATOCRIT 37.2 % (36.0-47.0); HEMOGLOBIN 11.8 g/dl (12.0-15.5); LYMPH # 0.5 10^3/uL (1.5-5.0); LYMPH % 3.1 % (24.0-44.0); MEAN CORPUSCULAR HEMOGLOBIN 29.7 pg (27.0-33.0); MEAN CORPUSCULAR HGB CONC 31.7 g/dl (32.0-36.5); MEAN CORPUSCULAR VOLUME 93.7 fl (80.0-96.0); MONO # 0.6 10^3/uL (0.0-0.8); MONO % 3.8 % (2.0-8.0); NEUTROPHILS # 14.2 10^3/uL (1.5-8.5); NEUTROPHILS % 92.1 % (36.0-66.0); PLATELET COUNT, AUTOMATED 407 10^3/uL (150-450); RED BLOOD COUNT 3.97 10^6/uL (4.00-5.40); WHITE BLOOD COUNT 15.4 10^3/uL (4.0-10.0)
[2022-12-03 06:42] LABS: BLOOD UREA NITROGEN 31 MG/DL (9-23); CALCIUM LEVEL 8.3 MG/DL (8.3-10.6); CARBON DIOXIDE LEVEL 28 MMOL/L (20-31); CHLORIDE LEVEL 102 MMOL/L (98-107); CREATININE FOR GFR 0.65 MG/DL (0.55-1.30); GLOMERULAR FILTRATION RATE > 60.0 (>39); GLUCOSE, FASTING 231 MG/DL (74-106); POTASSIUM SERUM 4.3 MMOL/L (3.5-5.1); SODIUM LEVEL 140 MMOL/L (136-145)
[2022-12-03] MEDS ORDERED: NS 1,000 ML IV ONE (07:00)
[2022-12-03] MEDS: BUDESONIDE 0.5 MG/2 ML INHALATION SUSPENSION INH SCH ×2 (07:37→19:46)
[2022-12-03] MEDS: FORMOTEROL FUMARATE 20 MCG/2 ML INHALATION SOLUTION (PERFOROMIST) INH SCH ×2 (07:37→19:46)
[2022-12-03] MEDS: IPRATROPIUM 0.02% SOLN 0.5MG 2.5ML NEB INH SCH ×3 (07:37→23:16)
[2022-12-03 08:23] VITALS: BP 150/62
[2022-12-03 08:24] VITALS: BP 150/62
[2022-12-03] MEDS: PANTOPRAZOLE 40MG TAB (PROTONIX) PO SCH ×2 (08:27→21:36)
[2022-12-03] MEDS: NICOTINE 21MG/24HR 1 EA TRANSDERMAL TD SCH (08:27)
[2022-12-03] MEDS: APIXABAN 5 MG TAB (ELIQUIS) PO SCH ×2 (08:28→21:38)
[2022-12-03] MEDS: ACETAMINOPHEN TAB 650MG DOSE (2X325MG) PO SCH ×3 (08:28→21:36)
[2022-12-03] MEDS: METOPROLOL TART 12.5 MG PER 1/2 TAB PO SCH ×2 (08:28→21:35)
[2022-12-03] MEDS: guaiFENesin ER TABLET 600 MG TAB PO SCH ×2 (08:28→21:35)
[2022-12-03] MEDS: NALTREXONE 50 MG TAB PO SCH (08:28)
[2022-12-03] MEDS: MULTIVITAMINS/MINERALS THERAP 1 TAB PO SCH (08:28)
[2022-12-03] MEDS: ATORVASTATIN 20 MG TAB PO SCH (08:28)
[2022-12-03] MEDS: amLODIPine 5 MG TAB PO SCH (08:28)
[2022-12-03] MEDS: DIGOXIN 0.125 MG TAB PO SCH (08:28)
[2022-12-03] MEDS ORDERED: FOLIC ACID 1MG TAB PO SCH (09:00)
[2022-12-03] MEDS ORDERED: PANTOPRAZOLE 40MG TAB (PROTONIX) PO SCH (09:00)
[2022-12-03 14:00] VITALS: BP 154/62; TEMP 99; O2SAT 97
[2022-12-03] MEDS: LevoFLOXacin 750 MG TABLET PO SCH (17:49)
[2022-12-03 20:45] VITALS: BP 145/63; TEMP 98.1; O2SAT 98
[2022-12-03] MEDS ORDERED: MOM 30ML SUSPENSION UDC PO PRN (21:40)
[2022-12-03] MEDS ORDERED: MIRALAX *UNIT DOSE* 17GM PACKET PO PRN (21:40)
[2022-12-03 22:00] VITALS: BP 145/63
[2022-12-04] MEDS: LEVALBUTEROL 1.25MG 0.5ML CONCENTRATE NEB INH SCH ×6 (03:22→23:55)
[2022-12-04 05:09] VITALS: BP 146/78; TEMP 97.7; O2SAT 97
[2022-12-04] MEDS: LEVOTHYROXINE 50MCG TABLET (0.05MG) PO SCH (05:35)
[2022-12-04 06:00] VITALS: BP 146/78
[2022-12-04 06:15] LABS: BASO % 0.1 % (0.0-1.0); HEMATOCRIT 33.2 % (36.0-47.0); HEMOGLOBIN 10.2 g/dl (12.0-15.5); LYMPH # 0.6 10^3/uL (1.5-5.0); LYMPH % 3.2 % (24.0-44.0); MEAN CORPUSCULAR HEMOGLOBIN 29.2 pg (27.0-33.0); MEAN CORPUSCULAR HGB CONC 30.7 g/dl (32.0-36.5); MEAN CORPUSCULAR VOLUME 95.1 fl (80.0-96.0); MONO # 1.1 10^3/uL (0.0-0.8); MONO % 6.1 % (2.0-8.0); NEUTROPHILS # 15.5 10^3/uL (1.5-8.5); PLATELET COUNT, AUTOMATED 369 10^3/uL (150-450); RED BLOOD COUNT 3.49 10^6/uL (4.00-5.40); WHITE BLOOD COUNT 17.3 10^3/uL (4.0-10.0)
[2022-12-04 06:40] LABS: BLOOD UREA NITROGEN 31 MG/DL (9-23); CALCIUM LEVEL 8.8 MG/DL (8.3-10.6); CARBON DIOXIDE LEVEL 28 MMOL/L (20-31); CHLORIDE LEVEL 106 MMOL/L (98-107); CREATININE FOR GFR 0.54 MG/DL (0.55-1.30); GLOMERULAR FILTRATION RATE > 60.0 (>39); GLUCOSE, FASTING 123 MG/DL (74-106); POTASSIUM SERUM 3.9 MMOL/L (3.5-5.1); SODIUM LEVEL 143 MMOL/L (136-145)
[2022-12-04] MEDS: methylPREDNISolone 40MG 1ML VIAL IV SCH ×2 (06:53→17:24)
[2022-12-04] MEDS: guaiFENesin ER TABLET 600 MG TAB PO SCH ×2 (08:00→21:06)
[2022-12-04] MEDS: DIGOXIN 0.125 MG TAB PO SCH (08:01)
[2022-12-04] MEDS: NALTREXONE 50 MG TAB PO SCH (08:01)
[2022-12-04] MEDS: METOPROLOL TART 12.5 MG PER 1/2 TAB PO SCH ×2 (08:01→21:06)
[2022-12-04] MEDS: ATORVASTATIN 20 MG TAB PO SCH (08:01)
[2022-12-04] MEDS: ACETAMINOPHEN TAB 650MG DOSE (2X325MG) PO SCH ×3 (08:02→21:06)
[2022-12-04] MEDS: PANTOPRAZOLE 40MG TAB (PROTONIX) PO SCH ×2 (08:02→21:06)
[2022-12-04] MEDS: APIXABAN 5 MG TAB (ELIQUIS) PO SCH ×2 (08:02→21:06)
[2022-12-04] MEDS: amLODIPine 5 MG TAB PO SCH (08:03)
[2022-12-04] MEDS: NICOTINE 21MG/24HR 1 EA TRANSDERMAL TD SCH (08:04)
[2022-12-04] MEDS: MULTIVITAMINS/MINERALS THERAP 1 TAB PO SCH (08:05)
[2022-12-04] MEDS: FORMOTEROL FUMARATE 20 MCG/2 ML INHALATION SOLUTION (PERFOROMIST) INH SCH ×2 (08:21→19:45)
[2022-12-04] MEDS: IPRATROPIUM 0.02% SOLN 0.5MG 2.5ML NEB INH SCH ×3 (08:21→23:55)
[2022-12-04] MEDS: BUDESONIDE 0.5 MG/2 ML INHALATION SUSPENSION INH SCH ×2 (08:21→19:45)
[2022-12-04] MEDS ORDERED: FLUZONE HIGH DOSE(65YR UP)QUAD/PF 240MCG/0.7ML SYRINGE IM.IMMUN ONE (09:00)
[2022-12-04 14:00] VITALS: BP 134/60; TEMP 97.9; O2SAT 97
[2022-12-04] MEDS: LevoFLOXacin 750 MG TABLET PO SCH (17:25)
[2022-12-04 20:50] VITALS: BP 174/76; TEMP 97.9; O2SAT 97
[2022-12-04] MEDS: SENOKOT S TAB PO SCH (21:06)
[2022-12-04 21:28] VITALS: BP 174/76
[2022-12-05] MEDS: LEVALBUTEROL 1.25MG 0.5ML CONCENTRATE NEB INH SCH ×6 (04:12→23:17)
[2022-12-05] MEDS: ACETAMINOPHEN TAB 650MG DOSE (2X325MG) PO PRN ×2 (04:19→12:47)
[2022-12-05 05:49] VITALS: BP 168/74; TEMP 97.2; O2SAT 96
[2022-12-05] MEDS: methylPREDNISolone 40MG 1ML VIAL IV SCH (05:57)
[2022-12-05] MEDS: LEVOTHYROXINE 50MCG TABLET (0.05MG) PO SCH (05:57)
[2022-12-05 06:30] LABS: BASO % 0.2 % (0.0-1.0); HEMATOCRIT 32.8 % (36.0-47.0); LYMPH # 0.8 10^3/uL (1.5-5.0); LYMPH % 4.3 % (24.0-44.0); MEAN CORPUSCULAR HEMOGLOBIN 29.5 pg (27.0-33.0); MEAN CORPUSCULAR HGB CONC 30.5 g/dl (32.0-36.5); MEAN CORPUSCULAR VOLUME 96.8 fl (80.0-96.0); MONO # 1.5 10^3/uL (0.0-0.8); MONO % 8.7 % (2.0-8.0); NEUTROPHILS # 14.7 10^3/uL (1.5-8.5); PLATELET COUNT, AUTOMATED 383 10^3/uL (150-450); RED BLOOD COUNT 3.39 10^6/uL (4.00-5.40); WHITE BLOOD COUNT 17.5 10^3/uL (4.0-10.0)
[2022-12-05 06:50] VITALS: BP 168/74
[2022-12-05 06:56] LABS: BLOOD UREA NITROGEN 31 MG/DL (9-23); CALCIUM LEVEL 9.2 MG/DL (8.3-10.6); CARBON DIOXIDE LEVEL 28 MMOL/L (20-31); CHLORIDE LEVEL 107 MMOL/L (98-107); CREATININE FOR GFR 0.67 MG/DL (0.55-1.30); GLOMERULAR FILTRATION RATE > 60.0 (>39); GLUCOSE, FASTING 110 MG/DL (74-106); POTASSIUM SERUM 4.1 MMOL/L (3.5-5.1); SODIUM LEVEL 144 MMOL/L (136-145)
[2022-12-05] MEDS: BUDESONIDE 0.5 MG/2 ML INHALATION SUSPENSION INH SCH (07:04)
[2022-12-05] MEDS: IPRATROPIUM 0.02% SOLN 0.5MG 2.5ML NEB INH SCH ×3 (07:04→23:17)
[2022-12-05] MEDS: FORMOTEROL FUMARATE 20 MCG/2 ML INHALATION SOLUTION (PERFOROMIST) INH SCH (07:04)
[2022-12-05] MEDS: amLODIPine 5 MG TAB PO SCH (08:09)
[2022-12-05] MEDS: METOPROLOL TART 25 MG TABLET PO SCH ×2 (08:09→20:19)
[2022-12-05] MEDS: ATORVASTATIN 20 MG TAB PO SCH (08:09)
[2022-12-05] MEDS: NALTREXONE 50 MG TAB PO SCH (08:09)
[2022-12-05] MEDS: PANTOPRAZOLE 40MG TAB (PROTONIX) PO SCH ×2 (08:09→20:20)
[2022-12-05] MEDS: guaiFENesin ER TABLET 600 MG TAB PO SCH ×2 (08:10→20:19)
[2022-12-05] MEDS: NICOTINE 21MG/24HR 1 EA TRANSDERMAL TD SCH (08:10)
[2022-12-05] MEDS: APIXABAN 5 MG TAB (ELIQUIS) PO SCH ×2 (08:10→20:18)
[2022-12-05] MEDS: DIGOXIN 0.125 MG TAB PO SCH (08:10)
[2022-12-05] MEDS: MULTIVITAMINS/MINERALS THERAP 1 TAB PO SCH (08:10)
[2022-12-05] MEDS: ACETAMINOPHEN TAB 650MG DOSE (2X325MG) PO SCH ×3 (08:11→20:19)
[2022-12-05] MEDS: SYMBICORT 160/4.5MCG INHALER 6GM INH SCH ×2 (08:29→19:32)
[2022-12-05] MEDS ORDERED: FUROSEMIDE 40MG/4ML VIAL IV ONE (09:00)
[2022-12-05] MEDS: CEFDINIR 300 MG CAP (OMNICEF) PO SCH ×2 (13:50→20:19)
[2022-12-05 14:00] VITALS: BP 154/74; TEMP 97.7; O2SAT 97
[2022-12-05] MEDS ORDERED: FLUCONAZOLE 50MG TABLET PO ONE (15:00)
[2022-12-05] MEDS: LACTOBACILLUS ACIDOPHILUS CAP (BACID) PO SCH (17:35)
[2022-12-05] MEDS: SENOKOT S TAB PO SCH (20:18)
[2022-12-05 21:28] VITALS: BP 150/94; TEMP 98.2; O2SAT 95
[2022-12-06] MEDS: LEVALBUTEROL 1.25MG 0.5ML CONCENTRATE NEB INH SCH ×3 (03:27→11:29)
[2022-12-06] MEDS: LEVOTHYROXINE 50MCG TABLET (0.05MG) PO SCH (06:17)
[2022-12-06 06:18] VITALS: BP 172/74; TEMP 97.8; O2SAT 96
[2022-12-06 06:21] LABS: BASO # 0.1 10^3/uL (0.0-0.2); BASO % 0.5 % (0.0-1.0); EOS # 0.1 10^3/uL (0.0-0.5); EOS % 0.3 % (0.0-3.0); HEMOGLOBIN 10.9 g/dl (12.0-15.5); LYMPH # 1.4 10^3/uL (1.5-5.0); LYMPH % 6.2 % (24.0-44.0); MEAN CORPUSCULAR HEMOGLOBIN 29.1 pg (27.0-33.0); MEAN CORPUSCULAR HGB CONC 30.3 g/dl (32.0-36.5); MONO % 7.1 % (2.0-8.0); NEUTROPHILS # 18.4 10^3/uL (1.5-8.5); NEUTROPHILS % 83.1 % (36.0-66.0); PLATELET COUNT, AUTOMATED 331 10^3/uL (150-450); RED BLOOD COUNT 3.75 10^6/uL (4.00-5.40); WHITE BLOOD COUNT 22.1 10^3/uL (4.0-10.0)
[2022-12-06 06:44] LABS: BLOOD UREA NITROGEN 23 MG/DL (9-23); CALCIUM LEVEL 8.9 MG/DL (8.3-10.6); CARBON DIOXIDE LEVEL 27 MMOL/L (20-31); CHLORIDE LEVEL 102 MMOL/L (98-107); CREATININE FOR GFR 0.52 MG/DL (0.55-1.30); GLOMERULAR FILTRATION RATE > 60.0 (>39); GLUCOSE, FASTING 92 MG/DL (74-106); POTASSIUM SERUM 4.7 MMOL/L (3.5-5.1); SODIUM LEVEL 139 MMOL/L (136-145)
[2022-12-06 07:03] LABS: MONO # 1.6 10^3/uL (0.0-0.8)
[2022-12-06] MEDS: IPRATROPIUM 0.02% SOLN 0.5MG 2.5ML NEB INH SCH (07:21)
[2022-12-06] MEDS: SYMBICORT 160/4.5MCG INHALER 6GM INH SCH (07:21)
[2022-12-06] MEDS: CEFDINIR 300 MG CAP (OMNICEF) PO SCH (07:54)
[2022-12-06] MEDS: PANTOPRAZOLE 40MG TAB (PROTONIX) PO SCH (07:54)
[2022-12-06] MEDS: LACTOBACILLUS ACIDOPHILUS CAP (BACID) PO SCH (07:54)
[2022-12-06] MEDS: DIGOXIN 0.125 MG TAB PO SCH (07:54)
[2022-12-06] MEDS: ACETAMINOPHEN TAB 650MG DOSE (2X325MG) PO SCH (07:54)
[2022-12-06] MEDS: APIXABAN 5 MG TAB (ELIQUIS) PO SCH (07:54)
[2022-12-06 07:55] VITALS: BP 172/74
[2022-12-06] MEDS: NALTREXONE 50 MG TAB PO SCH (07:55)
[2022-12-06] MEDS: guaiFENesin ER TABLET 600 MG TAB PO SCH (07:55)
[2022-12-06] MEDS: METOPROLOL TART 25 MG TABLET PO SCH (07:55)
[2022-12-06] MEDS: MULTIVITAMINS/MINERALS THERAP 1 TAB PO SCH (07:55)
[2022-12-06] MEDS: ATORVASTATIN 20 MG TAB PO SCH (07:55)
[2022-12-06] MEDS: NICOTINE 21MG/24HR 1 EA TRANSDERMAL TD SCH (07:56)
[2022-12-06] MEDS ORDERED: predniSONE 20 MG TAB PO SCH (09:00)
[2022-12-06] MEDS ORDERED: METO25TA4 PO (10:23)
[2022-12-06] MEDS ORDERED: AMLO1TAB25 PO (10:23)
[2022-12-06] MEDS ORDERED: IPRA0.00 NEB (10:23)
[2022-12-06] MEDS ORDERED: PRED10TA2 PO (10:23)
[2022-12-06] MEDS ORDERED: MUCI600T31 PO (10:23)
[2022-12-06] MEDS ORDERED: SENN-52 PO (10:23)
[2022-12-06] MEDS ORDERED: CEFD300CAP PO (10:23)
[2022-12-06] MEDS ORDERED: RISATAB3 PO (10:23)
[2022-12-06] MEDS ORDERED: FLUC150T9 PO (11:12)
[2022-12-06] MEDS ORDERED: FLUZONE HIGH DOSE(65YR UP)QUAD/PF 240MCG/0.7ML SYRINGE IM.IMMUN ONE (12:00)
[2022-12-06] MEDS ORDERED: HYDR-3363 PO (19:05)
== END 2022-12-06 15:13 | disposition home or self-care (01) | DRG 202 ==
LOC: M ED 10:13 → M ED INP 17:34 → ENRESERV 19:22 → M MSPAV 21:55
PROVIDERS: ADMIT Internal Medicine Nephrology; ATTEND Internal Medicine Nephrology
DX: J20.6 Acute bronchitis due to rhinovirus (principal); J18.9 Pneumonia, unspecified organism; J44.0 Chronic obstructive pulmonary disease with (acute) lower respiratory infection; I50.32 Chronic diastolic (congestive) heart failure; E46 Unspecified protein-calorie malnutrition; I48.20 Chronic atrial fibrillation, unspecified; I11.0 Hypertensive heart disease with heart failure; K21.9 Gastro-esophageal reflux disease without esophagitis; E03.9 Hypothyroidism, unspecified; E78.5 Hyperlipidemia, unspecified; K44.9 Diaphragmatic hernia without obstruction or gangrene; F32.A Depression, unspecified; F41.9 Anxiety disorder, unspecified; F17.200 Nicotine dependence, unspecified, uncomplicated; I27.81 Cor pulmonale (chronic); Z85.828 Personal history of other malignant neoplasm of skin; D72.829 Elevated white blood cell count, unspecified; D63.8 Anemia in other chronic diseases classified elsewhere; Z88.8 Allergy status to other drugs, medicaments and biological substances; Z79.899 Other long term (current) drug therapy; Z79.52 Long term (current) use of systemic steroids; F10.10 Alcohol abuse, uncomplicated

== ENCOUNTER → 2024-05-15 | Outpatient (CLI) | payer MEDICARE ==
[~2024-05-15] MED LIST changes: +CEFD300CAP PO; -FOLIC ACID 1MG TAB PO SCH; +HYDR-3363 PO; +MUCI600T31 PO; -MULTIVITAMINS/MINERALS THERAP 1 TAB PO SCH; +NALT50TA4 PO; +ONDA-282 PO; -ONDA4TAB6 PO; -POTA20EL PO; +POTA20LI16 PO; +RISATAB3 PO; +SENN-52 PO; +TREL1AER PO
[2024-05-15 10:22] LABS: BASO # 0.1 10^3/uL (0.0-0.2); BASO % 1.1 % (0.0-1.0); EOS # 0.3 10^3/uL (0.0-0.5); EOS % 3.4 % (0.0-3.0); HEMATOCRIT 41.8 % (36.0-47.0); HEMOGLOBIN 13.5 g/dl (12.0-15.5); LYMPH # 1.3 10^3/uL (1.5-5.0); LYMPH % 15.2 % (24.0-44.0); MEAN CORPUSCULAR HEMOGLOBIN 30.5 pg (27.0-33.0); MEAN CORPUSCULAR HGB CONC 32.3 g/dl (32.0-36.5); MEAN CORPUSCULAR VOLUME 94.6 fl (80.0-96.0); MONO % 11.6 % (2.0-8.0); NEUTROPHILS # 5.7 10^3/uL (1.5-8.5); NEUTROPHILS % 68.5 % (36.0-66.0); PLATELET COUNT, AUTOMATED 353 10^3/uL (150-450); RED BLOOD COUNT 4.42 10^6/uL (4.00-5.40); WHITE BLOOD COUNT 8.3 10^3/uL (4.0-10.0)
[2024-05-15 10:48] LABS: HEMOGLOBIN A1c 4.7 % (4.0-6.0)
[2024-05-15 10:49] LABS: DIGOXIN LEVEL < 0.1 NG/ML (0.8-2.0)
[2024-05-15 10:50] LABS: THYROID STIMULATING HORMONE 2.811 uIU/ML (0.55-4.78); TOTAL 25(OH) VITAMIN D 13.9 NG/ML (20.0-100.0)
[2024-05-15 10:54] LABS: ALBUMIN 3.7 G/DL (3.2-5.2); ALKALINE PHOSPHATASE 179 U/L (35-104); ALT/SGPT 19 U/L (7.0-40); AST/SGOT 22 U/L (<34); BILIRUBIN,TOTAL 0.4 MG/DL (0.3-1.2); BLOOD UREA NITROGEN 7 MG/DL (9-23); CARBON DIOXIDE LEVEL 28 MMOL/L (20-31); CHLORIDE LEVEL 105 MMOL/L (98-107); CHOLESTEROL LEVEL 207 MG/DL (<200); CHOLESTEROL RISK RATIO 1.51 (<5); CREATININE FOR GFR 0.54 MG/DL (0.55-1.30); GLOMERULAR FILTRATION RATE > 60.0 (>39); GLUCOSE, FASTING 90 MG/DL (74-106); HDL CHOLESTEROL 136.6 MG/DL (>40); LDL CHOLESTEROL 49.4 MG/DL (<100); NON-HDL-C 70.4 MG/DL; POTASSIUM SERUM 3.8 MMOL/L (3.5-5.1); SODIUM LEVEL 140 MMOL/L (136-145); TRIGLYCERIDES LEVEL 105 MG/DL (<150)
== END ==
LOC: M RAD 08:46
PROVIDERS: ATTEND Family Medicine
DX: K74.60 Unspecified cirrhosis of liver (principal); E07.9 Disorder of thyroid, unspecified; E78.00 Pure hypercholesterolemia, unspecified; Z79.899 Other long term (current) drug therapy

== ENCOUNTER → 2024-11-22 | Outpatient (CLI) | payer MEDICARE ==
[~2024-11-22] MED LIST changes: +PRAV40TA85 PO
[2024-11-22 10:51] LABS: BASO # 0.1 10^3/uL (0.0-0.2); BASO % 1.0 % (0.0-1.0); EOS # 0.1 10^3/uL (0.0-0.5); EOS % 1.0 % (0.0-3.0); LYMPH # 1.3 10^3/uL (1.5-5.0); LYMPH % 16.7 % (24.0-44.0); MONO # 0.9 10^3/uL (0.0-0.8); MONO % 11.3 % (2.0-8.0); NEUTROPHILS # 5.6 10^3/uL (1.5-8.5); NEUTROPHILS % 69.6 % (36.0-66.0); PLATELET COUNT, AUTOMATED 294 10^3/uL (150-450)
[2024-11-22 11:29] LABS: ALT/SGPT 13 U/L (7.0-40); AST/SGOT 22 U/L (<34); CALCIUM LEVEL 9.6 MG/DL (8.3-10.6); CARBON DIOXIDE LEVEL 27 MMOL/L (20-31); CHLORIDE LEVEL 101 MMOL/L (98-107); CREATININE FOR GFR 0.57 MG/DL (0.55-1.30); GLOMERULAR FILTRATION RATE > 90.0 (>39); POTASSIUM SERUM 4.2 MMOL/L (3.5-5.1); SODIUM LEVEL 141 MMOL/L (136-145)
== END ==
LOC: M RAD 09:43
PROVIDERS: ATTEND Family Medicine
DX: Z12.2 Encounter for screening for malignant neoplasm of respiratory organs (principal); F17.210 Nicotine dependence, cigarettes, uncomplicated; K76.0 Fatty (change of) liver, not elsewhere classified; E03.9 Hypothyroidism, unspecified; R91.8 Other nonspecific abnormal finding of lung field; I25.10 Atherosclerotic heart disease of native coronary artery without angina pectoris; I70.0 Atherosclerosis of aorta

== ENCOUNTER → 2024-12-19 | Outpatient (REF) | payer MEDICARE | LOC: M SFHCDERM 13:12 | PROVIDERS: ATTEND Physician Assistant | DX: C44.321 Squamous cell carcinoma of skin of nose (principal) | CPT/HCPCS: 11102; 88305; G0463 ==

== ENCOUNTER → 2025-01-16 | Outpatient (REF) | payer MEDICARE | LOC: M SFHCDERM 13:10 | PROVIDERS: ATTEND Physician Assistant | DX: C44.329 Squamous cell carcinoma of skin of other parts of face (principal); L57.0 Actinic keratosis ==

== ENCOUNTER → 2025-01-22 | Outpatient (CLI) | payer MEDICARE | LOC: M ONCR 13:51 | PROVIDERS: ATTEND General Practice | DX: C44.321 Squamous cell carcinoma of skin of nose (principal); C44.329 Squamous cell carcinoma of skin of other parts of face; L57.0 Actinic keratosis; Z90.710 Acquired absence of both cervix and uterus; Z90.722 Acquired absence of ovaries, bilateral; Z90.79 Acquired absence of other genital organ(s); F17.210 Nicotine dependence, cigarettes, uncomplicated; Z88.1 Allergy status to other antibiotic agents; Z88.5 Allergy status to narcotic agent; Z88.8 Allergy status to other drugs, medicaments and biological substances; Z79.51 Long term (current) use of inhaled steroids; Z79.899 Other long term (current) drug therapy; Z79.01 Long term (current) use of anticoagulants ==

== ENCOUNTER → 2025-02-06 | Outpatient (RCR) | payer MEDICARE | LOC: M ONCR 10:51 | PROVIDERS: ATTEND General Practice | DX: Z51.0 Encounter for antineoplastic radiation therapy (principal); C44.321 Squamous cell carcinoma of skin of nose ==